=== PATIENT | male | born 1965 | race American Indian/Alaskan Native ===

== ENCOUNTER 2017-07-06 14:30 | Inpatient (IN) | payer MEDICARE ==
[2017-07-06 16:35] LABS: Basophils % (Auto) 0.5 % (0.0-1.8); Eosinophils % (Auto) 0.8 % (0.0-4.3); Hematocrit 33.5 % (35.5-45.6); Lymphocytes # (Auto) 0.6 K/mm3 (1.2-5.4); Lymphocytes % (Auto) 13.1 % (13.4-35.0); Mean Corpuscular HGB Conc 33 % (32-34); Mean Corpuscular Hemoglobin 31 pg (28-32); Mean Corpuscular Volume 93 fl (84-94); Monocytes # (Auto) 0.5 K/mm3 (0.0-0.8); Monocytes % (Auto) 10.7 % (0.0-7.3); Red Blood Count 3.59 M/mm3 (3.65-5.03); Red Cell Distribution Width 13.3 % (13.2-15.2)
[2017-07-06 16:41] LABS: Platelet Count 58 K/mm3 (140-440)
[2017-07-06] MEDS ORDERED: CATAPRES PO ONE (17:02)
--- NOTE | 2017-07-06 17:10 | Emergency Department Report ---
ED General Adult HPI - General Chief complaint: High BP Stated complaint: HYPERTENSION Time Seen by Provider: 07/06/17 16:24 Source: patient, EMS Mode of arrival: Stretcher Limitations: Physical Limitation - History of Present Illness Initial comments: End-stage renal dialysis patient sent from dialysis clinic, for uncontrolled hypertension with blood pressure noted at the clinic of 208/130, and dialysis was not performed. Patient was given 0.2 clonidine orally by clinic prior to transfer here, and blood pressure noted on arrival was 180/110. Patient's only complaint is a chronic neck ache over the past 1-2 weeks, which is atraumatic, constant and aching, not exacerbated by patient's blood pressure today. Patient is chronically disabled, lives in a ch[facility], and has dialysis 3 times weekly. He is a poor historian, but gives no history of repeated episodes of uncontrolled hypertension. He has no other symptoms, including no chest pain, no shortness of breath, no wheezing or other difficulties breathing. He has no pains elsewhere besides the neck. MD Complaint: high blood pressure -: This afternoon Location: neck (right posterior neck) Severity scale (0 -10): 4 Quality: aching Consistency: intermittent Improves with: none Worsens with: movement Associated Symptoms: denies other symptoms. denies: chest pain, diaphoresis, headaches, nausea/vomiting Treatments Prior to Arrival: other (clonidine) - Related Data Allergies Allergy/AdvReac Type Severity Reaction Status Date / Time No Known Allergies Allergy Unverified 07/06/17 16:11 ED Review of Systems ROS: Stated complaint: HYPERTENSION Other details as noted in HPI Comment: All other systems reviewed and negative Constitutional: denies: fever, malaise, weakness Respiratory: denies: cough, shortness of breath, wheezing Cardiovascular: denies: chest pain, palpitations Neurological: denies: headache, weakness, paresthesias ED Past Medical Hx - Past Medical History Hx Hypertension: Yes Hx Renal Disease: Yes (dialysis) - Social History Smoking Status: Never Smoker ED Physical Exam - General Limitations: Physical Limitation, Other (slowed speech, possible intellectual impairment) General appearance: alert - Head Head exam: Present: atraumatic - Eye Eye exam: Present: normal appearance, PERRL, EOMI - ENT ENT exam: Present: mucous membranes moist - Neck Neck exam: Present: tenderness (right lower paracervical margin extending towards levator scapula on the right) - Respiratory Respiratory exam: Present: normal lung sounds bilaterally, other (venous access port intact right upper anterior chest wall). Absent: respiratory distress, wheezes, rales, rhonchi - Cardiovascular Cardiovascular Exam: Present: regular rate, normal rhythm. Absent: systolic murmur, diastolic murmur, rubs, gallop - GI/Abdominal GI/Abdominal exam: Present: soft, normal bowel sounds - Back Exam Back exam: Present: other (primary levator scapula and mild trapezius muscle tenderness with mild spasm and base of neck and little bit laterally) ED Course Vital Signs 07/06/17 07/06/17 07/06/17 16:39 16:42 18:58 Temperature 99.4 F 98.7 F Pulse Rate 75 68 Respiratory 15 15 22 Rate Blood Pressure Blood Pressure 178/103 187/100 [Left] O2 Sat by Pulse 98 98 99 Oximetry 07/06/17 07/06/17 07/06/17 19:30 19:31 20:01 Temperature 98.7 F Pulse Rate 69 67 68 Respiratory 22 22 20 Rate Blood Pressure 187/100 187/100 Blood Pressure 187/100 [Left] O2 Sat by Pulse 99 99 99 Oximetry - Reevaluation(s) Reevaluation #1: 07/06/17 18:55 Repeat blood pressure 187/100, repeat temperature 98.7 Fahrenheit, patient is asymptomatic, resting comfortably, still unable to give any additional significant history, denies history of intellectual impairment, mental health issues, no history of bipolar disorder or schizophrenia, reports that he does not have a regular physician, gets most of his care at [facility] whenever he has any kind of a problem. Reports this is where they diagnosed his blood pressure problem. 07/06/17 18:58 - Consultations Consultation #1: 07/06/17 21:[address] Gatica, consulted, about patient's results and primary complaint, current stability, and although patient is currently stable, he believes that there would be significant delay in getting patient at her back into dialysis, and that patient needs admission for dialysis in the hospital before his next scheduled session. Consultation #2: 07/06/17 22:00 Dr. Larson, hospitalist occasional babysitter contacted at 2145 hrs., with request for admission for preparation for dialysis, and he will come to see patient for further care and admission. ED Medical Decision Making - Lab Data Result diagrams: 07/06/17 16:15 07/06/17 18:07 - EKG Data -: EKG Interpreted by Me (normal EKG with no ST elevation, no ectopy, normal QT interval) EKG shows normal: sinus rhythm Rate: normal - EKG Data When compared to previous EKG there are: previous EKG unavailable Interpretation: no acute changes, normal EKG - Medical Decision Making Patient is end-stage renal dialysis, with past history of hypertension, new finding of hyperglycemia, with uncontrolled hypertension, causing him to miss dialysis. Patient will be admission for emergency dialysis, as it is not able to make arrangements for interim dialysis prior to his next scheduled session. Patient has an elevated troponin level, but with a normal EKG, and this is likely a chronic finding, although there are no prior hospital visit for comparison of either troponin or EKG. - Differential Diagnosis fluid overload, hypertension, hyperkalemia, diabetes Critical care attestation.: If time is entered above; I have spent that time in minutes in the direct care of this critically ill patient, excluding procedure time. ED Disposition Disposition: [id number] OP ADMIT IP TO THIS HOSP Is pt being admited?: Yes Does the pt Need Aspirin: No Condition: Fair Referrals: PRIMARY CARE, [Primary Care Provider] - 3-5 Days
[2017-07-06 17:13] LABS: Calcium 8.6 mg/dL (8.4-10.2)
[2017-07-06] MEDS ORDERED: KIONEX PO ONE (17:37)
[2017-07-06 17:41] LABS: Chol/HDL Ratio 2.52 %
[2017-07-06] MEDS ORDERED: CALCIUM GLUCONATE 1,000 MG in NACL 0.9% 100 ML IV ONE (18:00)
--- NOTE | 2017-07-06 18:22 | XRay Report ---
FINAL REPORT EXAM: XR SPINE CERVICAL 2-3V HISTORY: atraumatic pain X 1 wk TECHNIQUE: 3 views of the cervical spine PRIORS: None. FINDINGS: Prevertebral soft tissues are without swelling. No evidence of cervical fracture or vertebral compression. Multilevel degenerative changes are present at the vertebral endplates, facet joints, and uncinate joints. Spondylolisthesis is not visualized. Multilevel disc narrowing from C3 through C6. IMPRESSION: No acute skeletal pathology Multilevel degenerative changes and disc narrowing
[2017-07-06 19:08] LABS: Albumin 3.1 g/dL (3.9-5); Calcium 8.6 mg/dL (8.4-10.2)
[2017-07-06] MEDS ORDERED: TYLENOL PO PRN (23:03)
[2017-07-06] MEDS ORDERED: ZOFRAN IV PRN (23:04)
[2017-07-06] MEDS ORDERED: D50W (25GM) Syringe IV PRN (23:08)
[2017-07-07 01:20] LABS: Creatine Kinase MB 2.3 ng/mL (0.0-4.0)
[2017-07-07] MEDS ORDERED: ULTRAM PO ONE (01:22)
[2017-07-07] MEDS: APRESOLINE IV PRN ×2 (01:32→12:29)
[2017-07-07] MEDS: HumuLIN R SUB-Q SCH ×5 (02:27→22:05)
--- NOTE | 2017-07-07 04:53 | History and Physical Report ---
CHIEF COMPLAINT: Elevated blood pressure. OTHER COMPLAINT: End-stage renal disease while on dialysis. HISTORY OF PRESENT ILLNESS: The patient is a 51-year-old male who has end-stage renal disease, on dialysis. He was sent from Dialysis Clinic because of uncontrolled blood pressure. Initially, the blood pressure was as high as 200/130. Because of that, he did not receive his dialysis, he was given 0.2 mg of clonidine by mouth by staff members at the Dialysis Clinic before being transferred to the emergency room, and on arrival at the Emergency Room, blood pressure has come down to 180/100. The patient was only complaining of chronic neck pain and the patient was also complaining of sore throat. There was no history of chest pain, no history of shortness of breath, fever, chills or cough. The patient was seen in the Emergency Room. PAST MEDICAL HISTORY: Pertinent for hypertension; end-stage renal disease, on dialysis. PAST SURGICAL HISTORY: Unremarkable. FAMILY HISTORY: Noncontributory. SOCIAL HISTORY: The patient does not smoke, does not drink alcohol. Does not use illicit drugs. MEDICATIONS: The patient's home medications are not known at this time. ALLERGIES: There are no known drug allergies. REVIEW OF SYSTEMS: CONSTITUTIONAL: There is no fever, no chills, or no diaphoresis. HEENT: There is no headache, but there is sore throat. CARDIOVASCULAR SYSTEM: There is no chest pain, orthopnea. RESPIRATORY SYSTEM: There is no shortness of breath or cough. GASTROINTESTINAL SYSTEM: There is no nausea, no vomiting, no abdominal pain, diarrhea, or constipation. NEUROLOGICAL SYSTEM: There is no numbness, no dizziness, no altered mental status. MUSCULOSKELETAL SYSTEM: There is complaint of neck pain with no joint swelling. DERMATOLOGICAL SYSTEM: There is no skin rash or itching. GENITOURINARY SYSTEM: There are no dysuria, hematuria or flank pain. Rest of system review is normal. PHYSICAL EXAMINATION: GENERAL: At the time of exam, the patient was found to be alert, oriented to person, place, and having some difficulty with communication and not in acute distress. VITAL SIGNS: Initially shows temperature of 99.4 degrees Fahrenheit, pulse of 75, respirations 15, blood pressure 178/103, O2 sat of 98% on room air. HEENT: Exam shows pupils to be equal, round, reactive to light and accommodation. Extraocular muscles are intact. NECK: Supple, with no JVD or carotid bruit. CARDIOVASCULAR SYSTEM: Showed normal first and second heart sounds with no gallops or murmurs. RESPIRATORY SYSTEM: Show good air entry on both sides of the lung with no abnormal breath sound. GASTROINTESTINAL SYSTEM: Show abdomen to be full, soft, nontender with no organomegaly or rigidity. NEUROLOGICAL: Exam shows the patient to be having some difficulty with speech, which is not defined as new or old, but there is no other focal or neurologic deficit. MUSCULOSKELETAL SYSTEM: Show no joint swelling or tenderness. DERMATOLOGICAL SYSTEM: Show no skin rash. GENITOURINARY SYSTEM: Showing no costovertebral angle tenderness. PERTINENT LABORATORY AND IMAGING STUDIES: The patient has cervical spine x-ray done that shows multilevel degenerative changes, no acute critical pathology. Lab results, the patient has CBC done with low hemoglobin of 11 and low hematocrit of 33.5, with normal MCV, and platelet count was low with a value of 58,000. CBC differential shows slightly elevated segmented neutrophil of 74.9, with no significant band. Patient's chemistry shows high BUN of 45 and high creatinine of 6.1 with low GFR of 12 consistent with end-stage renal disease, on dialysis. The patient's chemistry also shows high blood glucose of 214, and there is no report of patient having history of diabetes mellitus. Rest of chemistry was unremarkable. Cardiac enzymes show elevated CK percentage index of 9.2 with high troponin level of 0.367. History of patient's albumin level shows there is slight decrease in level of 3.1. DIAGNOSES: 1. End-stage renal disease, on dialysis. 2. Hypertensive crisis. 3. Elevated troponin level. 4. Thrombocytopenia. 5. Hyperglycemia. PLAN: The patient will be admitted to medical floor on telemetry and we will have cardiac enzymes checked q.6 hours x 2 more levels. The patient will have Nephrology consult with Dr. Mu Carrizales for management of end-stage renal disease. Diet will be consistent carbohydrate diet with low sodium of 2 g sodium. The patient will have a Rapid Streptococcus test done because of his sore throat, voice and speech difficulty. The patient will be on Accu-Chek before noon and at bedtime, followed by low-dose sliding scale using regular insulin dose coverage of blood sugar above 150 mg/dL. The patient will be on Tylenol 650 mg by mouth every 4 hours for fever, headache, and will be on intravenous hydralazine 10 mg every 4 hours as needed for systolic blood pressure above 150 mmHg. The patient will be on intravenous Zofran 4 mg every 8 hours as needed for nausea and vomiting and will be placed on his home medications when they are known and reconciled. JOB# [id number] OCN/NTS
[2017-07-07 09:08] LABS: Creatine Kinase MB 2.7 ng/mL (0.0-4.0)
[2017-07-07] MEDS: NORVASC PO SCH ×2 (09:35→09:41)
[2017-07-07] MEDS: APRESOLINE PO SCH ×3 (09:35→22:04)
[2017-07-07] MEDS: ASPIRIN PO SCH (09:35)
--- NOTE | 2017-07-07 11:40 | Consultation ---
History of Present Illness Consult date: 07/07/17 Consult reason: abnormal cardiac enzymes History of present illness: 51 year old -[place] male presenting today hospital with severely elevated systemic arterial pressures while on dialysis. Patient denied any cardiac problems serum troponin levels were obtained and where equivocally elevated hence cardiology consult. EKG shows sinus rhythm with nonspecific ST- T changes Past History Past Medical History: ESRD, hypertension Past Surgical History: Other (AV fistula) Social history: no significant social history Family history: no significant family history Medications and Allergies Allergies Allergy/AdvReac Type Severity Reaction Status Date / Time No Known Allergies Allergy Unverified 07/06/17 16:11 Active Meds: Active Medications Acetaminophen (Tylenol) 650 mg PO Q4H PRN PRN Reason: For Pain/Fever/Headache Acetaminophen/Hydrocodone Bitart ([place] 5/325) 1 each PO Q6H PRN PRN Reason: Pain, Moderate (4-6) Amlodipine Besylate (Norvasc) 5 mg PO QDAY [facility] Last Admin: 07/07/17 09:41 Dose: Not Given Aspirin (Aspirin) 325 mg PO QDAY [facility] Last Admin: 07/07/17 09:35 Dose: 325 mg Dextrose (D50w (25gm) Syringe) 50 ml IV PRN PRN PRN Reason: Hypoglycemia Hydralazine HCl (Apresoline) 10 mg IV Q4HR PRN PRN Reason: SBP > 150 Last Admin: 07/07/17 01:32 Dose: 10 mg Hydralazine HCl (Apresoline) 50 mg PO Q8HR [facility] Last Admin: 07/07/17 09:35 Dose: 50 mg Insulin Human Regular (Humulin R) 0 units SUB-Q [facility]; Protocol Last Admin: 07/07/17 07:30 Dose: Not Given Insulin Human Regular (Humulin R) 0 units SUB-Q QHS [facility]; Protocol Last Admin: 07/07/17 02:27 Dose: 2 units Ondansetron HCl (Zofran) 4 mg IV Q8H PRN PRN Reason: Nausea And Vomiting Review of Systems All systems: negative Physical Examination Vital Signs Temp Pulse Resp BP Pulse Ox 99.4 F 75 15 178/103 98 07/06/17 16:39 07/06/17 16:39 07/06/17 16:39 07/06/17 16:39 07/06/17 16:39 General appearance: no acute distress, well-nourished HEENT: Positive: PERRL, Mucus Membranes Moist Neck: Positive: neck supple, trachea midline. Negative: JVD/HJR Cardiac: Positive: Reg Rate and Rhythm, S1/S2, S4, PMI, Laterally Displaced Lungs: Positive: clear to auscultation, No Wheeze, Rales, Rhonchi Neuro: Positive: Grossly Intact Abdomen: Positive: Unremarkable Extremities: Absent: edema Results 07/06/17 16:15 07/06/17 18:07 Cardiac Enzymes 07/06/17 07/07/17 07/07/17 Range/Units 18:07 00:30 07:17 AST 9 (5-40) units/L CK-MB (CK-2) 2.3 2.7 (0.0-4.0) ng/mL Lipids 07/06/17 Range/Units 16:15 Triglycerides 78 (2-149) mg/dL Cholesterol 111 (50-199) mg/dL HDL Cholesterol 44 (40-59) mg/dL Cholesterol/HDL Ratio 2.52 % CBC 07/06/17 Range/Units 16:15 WBC 4.9 (4.5-11.0) K/mm3 RBC 3.59 L (3.65-5.03) M/mm3 Hgb 11.0 L (11.8-15.2) gm/dl Hct 33.5 L (35.5-45.6) % Plt Count 58 L (140-440) K/mm3 Lymph # 0.6 L (1.2-5.4) K/mm3 [place] # 0.5 (0.0-0.8) K/mm3 Eos # 0.0 (0.0-0.4) K/mm3 Baso # 0.0 (0.0-0.1) K/mm3 Comprehensive Metabolic Panel 07/06/17 07/06/17 Range/Units 16:15 18:07 Sodium 139 138 (137-145) mmol/L Potassium 4.3 4.3 (3.6-5.0) mmol/L Chloride 98.0 97.8 L (98-107) mmol/L Carbon Dioxide 22 23 (22-30) mmol/L BUN 44 H 45 H (9-20) mg/dL Creatinine 6.3 H 6.1 H (0.8-1.5) mg/dL Glucose 223 H 214 H (75-100) mg/dL Calcium 8.6 8.6 (8.4-10.2) mg/dL AST 9 (5-40) units/L ALT 6 L (7-56) units/L Alkaline Phosphatase 73 (35-129) units/L Total Protein 6.3 (6.3-8.2) g/dL Albumin 3.1 L (3.9-5) g/dL EKG interpretations - Telemetry EKG Rhythm: Sinus Rhythm Assessment and Plan 1. Abnormal cardiac enzymes elevation likely secondary to underlying end-stage renal disease 2. Essential hypertension 3. Type 2 diabetes mellitus 4. End-stage renal disease on hemodialysis Plan. Echocardiogram to assess global and regional LV systolic function Lexiscan MPI to rule out ischemic coronary artery disease
--- NOTE | 2017-07-07 11:51 | Progress Note ---
Assessment and Plan Assessment and plan: Hypertensive urgency. Patient sent in from dialysis for markedly elevated BP. Add Norvasc and Hydralazine. ESRD on hemodialysis. nephrology following. Elevated Troponin. cardiology consulted. For stress test tomorrow. chronic neck pain. [place] prn. DVT prophylaxis. SCDs only because thrombocytopenia. Thrombocytopenia. Follow as outpatient. Full code status History Interval history: Sent in from dialysis Unit forelevated blood pressure. Also complains of neck pain for weeks Hospitalist Physical - Physical exam Narrative exam: General:Not in acute distress, lying in bed HEENT:Normocephalic, atraumatic Neck:supple,no JVD Lungs: Cleasr to auscultation bilaterally, no wheeze Heart:S1 and S2 regular, no murmurs, rubs or gallop Abd: soft, non tender,non distended, normal bowel sounds Ext:no edema, no clubbing or cyanosis Neuro:Awake,alert,oriented x 3, moves all extremities, Psych:normal mood - Constitutional Vitals: Temp Pulse Resp BP Pulse Ox 98.6 F 75 18 174/91 97 07/07/17 08:51 07/07/17 10:00 07/07/17 10:00 07/07/17 09:35 07/07/17 05:28 General appearance: Present: no acute distress, well-nourished Results - Labs CBC & Chem 7: 07/06/17 16:15 07/06/17 18:07 Labs: Laboratory Last Values WBC 4.9 K/mm3 (4.5-11.0) 07/06/17 16:15 RBC 3.59 M/mm3 (3.65-5.03) L 07/06/17 16:15 Hgb 11.0 gm/dl (11.8-15.2) L 07/06/17 16:15 Hct 33.5 % (35.5-45.6) L 07/06/17 16:15 MCV 93 fl (84-94) 07/06/17 16:15 MCH 31 pg (28-32) 07/06/17 16:15 MCHC 33 % (32-34) 07/06/17 16:15 RDW 13.3 % (13.2-15.2) 07/06/17 16:15 Plt Count 58 K/mm3 (140-440) L 07/06/17 16:15 Lymph % (Auto) 13.1 % (13.4-35.0) L 07/06/17 16:15 [place] % (Auto) 10.7 % (0.0-7.3) H 07/06/17 16:15 Eos % (Auto) 0.8 % (0.0-4.3) 07/06/17 16:15 Baso % (Auto) 0.5 % (0.0-1.8) 07/06/17 16:15 Lymph # 0.6 K/mm3 (1.2-5.4) L 07/06/17 16:15 [place] # 0.5 K/mm3 (0.0-0.8) 07/06/17 16:15 Eos # 0.0 K/mm3 (0.0-0.4) 07/06/17 16:15 Baso # 0.0 K/mm3 (0.0-0.1) 07/06/17 16:15 Seg Neutrophils % 74.9 % (40.0-70.0) H 07/06/17 16:15 Seg Neutrophils # 3.7 K/mm3 (1.8-7.7) 07/06/17 16:15 Sodium 138 mmol/L (137-145) 07/06/17 18:07 Potassium 4.3 mmol/L (3.6-5.0) 07/06/17 18:07 Chloride 97.8 mmol/L (98-107) L 07/06/17 18:07 Carbon Dioxide 23 mmol/L (22-30) 07/06/17 18:07 Anion Gap 22 mmol/L 07/06/17 18:07 BUN 45 mg/dL (9-20) H 07/06/17 18:07 Creatinine 6.1 mg/dL (0.8-1.5) H 07/06/17 18:07 Estimated GFR 12 ml/min 07/06/17 18:07 BUN/Creatinine Ratio 7 % 07/06/17 18:07 Glucose 214 mg/dL (75-100) H 07/06/17 18:07 POC Glucose 149 (70-105) H 07/07/17 07:00 Calcium 8.6 mg/dL (8.4-10.2) 07/06/17 18:07 Total Bilirubin 0.30 mg/dL (0.1-1.2) 07/06/17 18:07 AST 9 units/L (5-40) 07/06/17 18:07 ALT 6 units/L (7-56) L 07/06/17 18:07 Alkaline Phosphatase 73 units/L (35-129) 07/06/17 18:07 Total Creatine Kinase 28 units/L (55-170) L 07/07/17 07:17 CK-MB (CK-2) 2.7 ng/mL (0.0-4.0) 07/07/17 07:17 CK-MB (CK-2) Rel Index 9.6 (0-4) H 07/07/17 07:17 Troponin T 0.485 ng/mL (0.00-0.029) H* D 07/07/17 07:17 Total Protein 6.3 g/dL (6.3-8.2) 07/06/17 18:07 Albumin 3.1 g/dL (3.9-5) L 07/06/17 18:07 Albumin/Globulin Ratio 1.0 % 07/06/17 18:07 Triglycerides 78 mg/dL (2-149) 07/06/17 16:15 Cholesterol 111 mg/dL (50-199) 07/06/17 16:15 LDL Cholesterol Direct 54 mg/dL (50-130) 07/06/17 16:15 HDL Cholesterol 44 mg/dL (40-59) 07/06/17 16:15 Cholesterol/HDL Ratio 2.52 % 07/06/17 16:15
[2017-07-07] MEDS: NORCO 5/325 PO PRN (12:11)
--- NOTE | 2017-07-07 12:35 | Consultation ---
History of Present Illness - Reason for Consult Consult date: 07/07/17 end stage renal disease - History of Present Illness 51yr M sent from outpt HD center with uncontrolled HTN. Pt does not know his Dialysis Center, location, Purchasing Supervisor or what days he goes for Dialysis, how long he's been on HD Past History Past Medical History: ESRD, hypertension Past Surgical History: Other (AV fistula) Social history: no significant social history Family history: no significant family history Medications and Allergies Allergies Allergy/AdvReac Type Severity Reaction Status Date / Time No Known Allergies Allergy Unverified 07/06/17 16:11 Active Meds: Active Medications Acetaminophen (Tylenol) 650 mg PO Q4H PRN PRN Reason: For Pain/Fever/Headache Acetaminophen/Hydrocodone Bitart ([place] 5/325) 1 each PO Q6H PRN PRN Reason: Pain, Moderate (4-6) Last Admin: 07/07/17 12:11 Dose: 1 each Amlodipine Besylate (Norvasc) 5 mg PO QDAY [facility] Last Admin: 07/07/17 09:41 Dose: Not Given Aspirin (Aspirin) 325 mg PO QDAY [facility] Last Admin: 07/07/17 09:35 Dose: 325 mg Dextrose (D50w (25gm) Syringe) 50 ml IV PRN PRN PRN Reason: Hypoglycemia Hydralazine HCl (Apresoline) 10 mg IV Q4HR PRN PRN Reason: SBP > 150 Last Admin: 07/07/17 12:29 Dose: 10 mg Hydralazine HCl (Apresoline) 50 mg PO Q8HR [facility] Last Admin: 07/07/17 09:35 Dose: 50 mg Insulin Human Regular (Humulin R) 0 units SUB-Q [facility]; Protocol Last Admin: 07/07/17 12:13 Dose: Not Given Insulin Human Regular (Humulin R) 0 units SUB-Q QHS [facility]; Protocol Last Admin: 07/07/17 02:27 Dose: 2 units Ondansetron HCl (Zofran) 4 mg IV Q8H PRN PRN Reason: Nausea And Vomiting Review of Systems ROS unobtainable: due to mental status Exam - Vital Signs Vital signs: Vital Signs Temp Pulse Resp BP Pulse Ox 99.4 F 75 15 178/103 98 07/06/17 16:39 07/06/17 16:39 07/06/17 16:39 07/06/17 16:39 07/06/17 16:39 - General Appearance General appearance: other (Awake & responsive but very poor memory) EENT: PERRL Neck: Present: neck supple. Absent: JVD/HJR Respiratory: Other (Good air entry) Heart: regular, S1S2 Gastrointestinal: Present: other (Soft) Neurologic: other (Very poor memory) Additional exam: HD Access - RIJ Permcath Results - Lab Results 07/06/17 16:15 07/06/17 18:07 Most recent lab results Calcium 8.6 mg/dL (8.4-10.2) 07/06/17 18:07 Assessment and Plan Uncontrollled HTN - Adjust meds for better control ESRD - HD in am & thru adm Dementia - F/u Mx F/u labs Thanks very much, will f/u with you
[2017-07-07] MEDS ORDERED: HEPARIN 10,000 UNITS/10 ML IV PRN (12:42)
[2017-07-07] MEDS ORDERED: PROCRIT IV PRN (12:42)
[2017-07-07] MEDS ORDERED: NACL 0.9% 100 ML IV PRN (12:42)
[2017-07-07] MEDS ORDERED: HEPARIN IV PRN (12:42)
[2017-07-07] MEDS: COREG PO SCH (22:04)
[2017-07-08 06:27] LABS: Hematocrit 30.4 % (35.5-45.6); Hemoglobin 10.1 gm/dl (11.8-15.2); Mean Corpuscular HGB Conc 33 % (32-34); Mean Corpuscular Hemoglobin 31 pg (28-32); Mean Corpuscular Volume 92 fl (84-94); Red Blood Count 3.31 M/mm3 (3.65-5.03); Red Cell Distribution Width 13.6 % (13.2-15.2)
[2017-07-08 06:28] LABS: Platelet Count 67 K/mm3 (140-440)
[2017-07-08] MEDS: APRESOLINE PO SCH ×3 (06:37→21:01)
[2017-07-08 06:54] LABS: Hepatitis A Antibody IgM Non-Reactive (NonReactive); Hepatitis B Core IgM Non-Reactive (NonReactive); Hepatitis B Surface Antigen Non-Reactive (Negative); Hepatitis C Virus Antibody Non-Reactive (NonReactive)
[2017-07-08] MEDS: NORCO 5/325 PO PRN ×2 (07:03→18:49)
[2017-07-08] MEDS: HumuLIN R SUB-Q SCH ×4 (08:19→21:14)
--- NOTE | 2017-07-08 09:24 | Progress Note ---
Assessment and Plan Uncontrollled HTN - Still adjust meds for better control ESRD - HD today F/u am labs still pending Subjective Date of service: 07/08/17 Interval history: C/o back pain, relief by pain meds Objective - Vital Signs Vital signs: Vital Signs - 12hr 07/07/17 07/07/17 07/07/17 22:04 22:35 23:58 Temperature 98.9 F Pulse Rate 76 76 Pulse Rate [ 76 Apical] Pulse Rate [ 76 From Monitor] Respiratory 18 20 Rate Blood Pressure 129/79 134/84 Blood Pressure [Left] O2 Sat by Pulse 97 96 Oximetry 07/08/17 07/08/17 07/08/17 04:27 07:03 08:00 Temperature 99.1 F 98.2 F Pulse Rate 84 84 Pulse Rate [ Apical] Pulse Rate [ From Monitor] Respiratory 20 20 18 Rate Blood Pressure 135/72 Blood Pressure 169/102 [Left] O2 Sat by Pulse 97 97 Oximetry 07/08/17 08:54 Temperature Pulse Rate 84 Pulse Rate [ Apical] Pulse Rate [ 84 From Monitor] Respiratory 18 Rate Blood Pressure Blood Pressure [Left] O2 Sat by Pulse 98 Oximetry - General Appearance General appearance: other (Awake & alert) EENT: PERRL Neck: no JVD Respiratory: Present: Other (Good air entry) Cardiology: regular, S1S2 Gastrointestinal: other (Soft) - Lab 07/08/17 05:48 07/06/17 18:07 Most recent lab results Calcium 8.6 mg/dL (8.4-10.2) 07/06/17 18:07
[2017-07-08] MEDS ORDERED: PNEUMOVAX 23 IM ONE (12:00)
[2017-07-08] MEDS ORDERED: LEXISCAN IV ONE ×2 (12:38→12:41)
[2017-07-08] MEDS ORDERED: NACL 0.9 (PRIMING MACHINE ONLY DIALYSIS) MC ONE (14:58)
--- NOTE | 2017-07-08 14:59 | Discharge Summary ---
Providers - Providers Date of Admission: 07/06/17 22:53 Date of discharge: 07/08/17 Attending physician: CHIARA HORN 07/07/17 06:19 Consult to Physician [CONS] Routine Comment: Consulting Provider: URVASHI MICHEL Physician Instructions: Reason For Exam: ELEVATED TROPONIN 07/07/17 06:58 Consult to Physician [CONS] Routine Comment: Consulting Provider: SUDARSHAN HUSSEIN Physician Instructions: Reason For Exam: ESRD ON DIALYSIS Primary care physician: STRUCTURAL MANAGER Hospitalization Condition: Fair Disposition: DC/[place]-03 SNF W [facility] CERT Core Measure Documentation - Palliative Care Palliative Care/ Comfort Measures: Not Applicable - Core Measures Any of the following diagnoses?: none Exam - Constitutional Vitals: Temp Pulse Resp BP Pulse Ox 98.2 F 84 18 157/88 98 07/08/17 14:00 07/08/17 14:00 07/08/17 14:00 07/08/17 14:00 07/08/17 08:54 Plan Activity: advance as tolerated Diet: low fat, low cholesterol, low salt, renal Additional Instructions: 1.Follow up with Physician at SNF in 2-3 days. 2.Continue routine hemodialysis as scheduled. 3.Follow up with Dr. Brothers, hematology in 1 week for thrombocytopenia. Follow up with: PRIMARY CARE, [Primary Care Provider] - 3-5 Days Prescriptions: NIFEdipine XL [Procardia Xl] 60 mg PO Q12H #60 tablet traMADol [Ultram 50 MG tab] 50 mg PO Q6HR PRN #10 tablet PRN Reason: Pain
[2017-07-08] MEDS: ASPIRIN PO SCH (17:26)
[2017-07-08] MEDS: COREG PO SCH ×2 (17:26→21:01)
[2017-07-08] MEDS: PROCARDIA XL PO SCH ×2 (17:27→21:00)
--- NOTE | 2017-07-08 19:40 | Progress Note ---
Assessment and Plan - Patient Problems (1) Uncontrolled hypertension Current Visit: Yes Status: Acute Plan to address problem: The patient was referred to the hospital from the dialysis unit due to uncontrolled hypertension at the time of dialysis. On presentation, he denies any cardiac symptoms. There is no chest pain, no shortness of breath, no palpitations and no edema. For unclear reasons, on presentation to the emergency room cardiac isoenzymes were drawn and measured. Due to the isolated mild elevation of the troponin, Persantine thallium stress test was ordered today. The patient underwent a Lexiscan myocardial perfusion test, that revealed a small mostly fixed basal inferolateral defect. He has minimal reversibility and the rest study. In the absence of symptoms, there is no indication for further cardiac ischemic testing at this time. Recommend conservative medical management and risk factor modification. We will make recommendations for optimal blood pressure control and recommend outpatient cardiac follow-up. Subjective Date of service: 07/08/17 Interval history: The patient underwent a Lexiscan myocardial perfusion test, that revealed a small mostly fixed basal inferolateral defect. He has minimal reversibility and the rest study. Objective Vital Signs Temp Pulse Pulse Pulse Resp BP BP 07/08/17 17:35 98.0 F 84 18 135/73 07/08/17 17:30 80 124/66 07/08/17 17:15 82 120/68 07/08/17 17:00 84 112/68 07/08/17 16:45 80 113/67 07/08/17 16:30 79 116/68 07/08/17 16:15 79 124/70 07/08/17 16:00 79 121/71 07/08/17 15:45 78 122/71 07/08/17 15:30 78 122/72 07/08/17 15:15 78 124/72 07/08/17 15:00 80 120/72 07/08/17 14:45 81 122/73 07/08/17 14:30 80 129/75 07/08/17 14:15 79 130/79 07/08/17 14:00 98.2 F 83 18 140/80 07/08/17 13:26 89 116/71 07/08/17 13:25 90 114/70 07/08/17 13:24 90 111/69 07/08/17 13:23 89 112/67 07/08/17 13:22 85 109/67 07/08/17 12:35 78 183/99 07/08/17 08:54 84 84 18 07/08/17 08:00 98.2 F 84 18 169/102 07/08/17 07:03 20 07/08/17 04:27 99.1 F 84 20 135/72 07/07/17 23:58 98.9 F 76 20 134/84 07/07/17 22:35 76 76 18 07/07/17 22:04 76 129/79 07/07/17 20:40 73 07/07/17 19:43 98.5 F 76 18 129/79 Pulse Ox 07/08/17 17:35 07/08/17 17:30 07/08/17 17:15 07/08/17 17:00 07/08/17 16:45 07/08/17 16:30 07/08/17 16:15 07/08/17 16:00 07/08/17 15:45 07/08/17 15:30 07/08/17 15:15 07/08/17 15:00 07/08/17 14:45 07/08/17 14:30 07/08/17 14:15 07/08/17 14:00 07/08/17 13:26 07/08/17 13:25 07/08/17 13:24 07/08/17 13:23 07/08/17 13:22 07/08/17 12:35 07/08/17 08:54 98 07/08/17 08:00 97 07/08/17 07:03 07/08/17 04:27 97 07/07/17 23:58 96 07/07/17 22:35 97 07/07/17 22:04 07/07/17 20:40 07/07/17 19:43 97 - Physical Examination General: No Apparent Distress, Cachectic HEENT: Positive: PERRL, Mucus Membranes Moist Neck: Positive: neck supple. Negative: JVD/HJR Cardiac: Positive: Reg Rate and Rhythm Lungs: Positive: Decreased Breath Sounds Neuro: Positive: Grossly Intact Abdomen: Positive: Unremarkable Skin: Positive: Clear Extremities: Absent: edema - Labs and Meds CBC 07/08/17 Range/Units 05:48 WBC 4.8 (4.5-11.0) K/mm3 RBC 3.31 L (3.65-5.03) M/mm3 Hgb 10.1 L (11.8-15.2) gm/dl Hct 30.4 L (35.5-45.6) % Plt Count 67 L (140-440) K/mm3
[2017-07-08 20:05] VITALS: BP 169/92
--- NOTE | 2017-07-09 23:00 | Treadmill Report ---
LEFT VENTRICLE: Left ventricular chamber size is within normal spirit. Perfusion study demonstrates a small fixed basal inferolateral defect, with minimal reversibility in the resting study. Gated analysis demonstrates well preserved left ventricular systolic function, ejection fraction greater than 70%. CONCLUSION: Small fixed basal inferolateral defect may represent diaphragmatic attenuation artifact. Cannot exclude a minimal degree of reversible ischemia on this study. Clinical correlation is recommended. [facility]# [id number] [place]/NTS
== END 2017-07-08 21:55 | DRG 304 ==
LOC: ED 14:30 → 4A 22:53
PROVIDERS: ADMIT Internal Medicine; ATTEND Internal Medicine
PROC: 3E0234Z Introduction of Serum, Toxoid and Vaccine into Muscle, Percutaneous Approach (ICD-10-PCS; principal; 2017-07-08)
PROC: 5A1D70Z Performance of Urinary Filtration, Intermittent, Less than 6 Hours Per Day (ICD-10-PCS; 2017-07-08)
DX: I16.0 Hypertensive urgency (principal); N18.6 End stage renal disease; I12.0 Hypertensive chronic kidney disease with stage 5 chronic kidney disease or end stage renal disease; D69.6 Thrombocytopenia, unspecified; E11.22 Type 2 diabetes mellitus with diabetic chronic kidney disease; F03.90 Unspecified dementia, unspecified severity, without behavioral disturbance, psychotic disturbance, mood disturbance, and anxiety; G89.29 Other chronic pain; M54.2 Cervicalgia; Z23 Encounter for immunization
CPT/HCPCS: 36415; 72040; 78452; 80048; 80053; 80061; 80074; 82550; 82553; 82962; 84484; 85025; 85027; 90732; 93005; 93010; 93017; 93306; A9502; J0360; J0610; J0885; J1644; J1815; J2785; J7030

== ENCOUNTER 2017-09-28 11:05 | Emergency (ER) | payer MEDICARE ==
[2017-09-28] MEDS ORDERED: D50W (25GM) Syringe IV ONE ×2 (11:07→12:00)
--- NOTE | 2017-09-28 11:44 | XRay Report ---
FINAL REPORT EXAM: XR CHEST 1V AP HISTORY: dyspnea TECHNIQUE: Chest, AP PRIORS: None. FINDINGS: There is a right central venous catheter with tip in right atrium. The heart size is normal. Pulmonary vasculature is not congested. The lungs are clear. There are no pleural effusion seen. There is no evidence of pneumothorax. IMPRESSION: There is no acute abnormality identified.
[2017-09-28 11:52] LABS: Eosinophils # (Auto) 0.2 K/mm3 (0.0-0.4); Eosinophils % (Auto) 4.3 % (0.0-4.3); Hematocrit 38.1 % (35.5-45.6); Hemoglobin 12.8 gm/dl (11.8-15.2); Lymphocytes # (Auto) 0.5 K/mm3 (1.2-5.4); Lymphocytes % (Auto) 13.3 % (13.4-35.0); Mean Corpuscular HGB Conc 34 % (32-34); Mean Corpuscular Hemoglobin 32 pg (28-32); Mean Corpuscular Volume 94 fl (84-94); Monocytes # (Auto) 0.3 K/mm3 (0.0-0.8); Monocytes % (Auto) 7.1 % (0.0-7.3); Red Blood Count 4.05 M/mm3 (3.65-5.03); Red Cell Distribution Width 16.6 % (13.2-15.2)
[2017-09-28 11:55] LABS: Platelet Count 46 K/mm3 (140-440)
--- NOTE | 2017-09-28 12:49 | Emergency Department Report ---
HPI - General Chief Complaint: Hypoglycemia Time Seen by Provider: 09/28/17 11:15 - HPI HPI: The patient is a 52-year-old male with a history of end-stage renal disease, who presents for evaluation of altered mental status. The patient arrives via EMS, who reports that the patient was found with altered mental status and decreased alertness on presentation to his dialysis center. The patient denies fever, head injury, headache, neck pain, neck stiffness, vision or hearing changes, smell or taste changes, paresthesias, facial drooping, slurred speech, seizure-like activity, urine or bowel incontinence or retention, or other focal neurological deficit. ED Past Medical Hx - Past Medical History Hx Hypertension: Yes Hx Heart Attack/AMI: No Hx Congestive Heart Failure: No Hx Diabetes: Yes Hx Deep Vein Thrombosis: No Hx Pulmonary Embolism: No Hx Liver Disease: No Hx Renal Disease: Yes (dialysis) Hx Kidney Stones: No Hx Asthma: No Hx COPD: No Hx Tuberculosis: No - Surgical History Hx Coronary Stent: No Hx Pacemaker: No Hx Internal Defibrillator: No - Social History Smoking Status: Unknown if ever smoked Substance Use Type: None - Medications Home Medications: Home Medications Medication Instructions Recorded Confirmed Last Taken Type Acidophilus 175 mg Capsule 100 mg PO BID 07/08/17 07/08/17 Unknown History Benadryl CAP 25 mg PO Q12H PRN 07/08/17 07/08/17 Unknown History Folic Acid 1 mg PO DAILY 07/08/17 07/08/17 Unknown History Lantus VIAL 10 units SQ QHS 07/08/17 07/08/17 Unknown History Lomotil 2.5-0.025 mg Tablet 2.5 mg PO Q6H PRN 07/08/17 07/08/17 Unknown History Metoprolol Tartrate 25 mg PO Q12H 07/08/17 07/08/17 Unknown History NIFEdipine XL [Procardia Xl] 60 mg PO Q12H #60 tablet 07/08/17 Unknown Rx NovoLOG Flexpen 100 units SQ 07/08/17 Unknown History Phoslo 967 mg PO TID 07/08/17 07/08/17 Unknown History Remeron 15 mg PO QHS 07/08/17 07/08/17 Unknown History Synthroid 25 mcg PO QAM 07/08/17 07/08/17 Unknown History Thiamine HCl 100 mg PO DAILY 07/08/17 07/08/17 Unknown History traMADol [Ultram 50 MG tab] 50 mg PO Q6HR PRN #10 tablet 07/08/17 Unknown Rx ED Review of Systems ROS: Stated complaint: ALTERED MENTAL STATUS Other details as noted in HPI Constitutional: denies: fever ENT: denies: throat or neck pain Respiratory: denies: cough, shortness of breath Cardiovascular: denies: chest pain Endocrine: denies unexplained weight loss or gain Gastrointestinal: denies: abdominal pain, nausea Genitourinary: denies: dysuria Musculoskeletal: denies: leg swelling Skin: denies: rash Neurological: confusion reported (per dialysis staff) denies: headache Hematological/Lymphatic: denies: easy bleeding or easy bruising Psych: denies sadness or hopelessness Physical Exam - Physical Exam Vital Signs: Vital Signs 09/28/17 09/28/17 11:24 11:32 Temperature 97 F L Pulse Rate 62 Respiratory 18 Rate Blood Pressure 109/66 O2 Sat by Pulse 100 100 Oximetry Physical Exam: General: well-nourished, well-developed, no acute distress Head: Normocephalic, atraumatic Eyes: normal sclera ENT: Mucous membranes are pale and dry Neck: No neck stiffness, no cervical adenopathy Respiratory: Breath sounds equal bilaterally, no wheezing, rales, or rhonchi Cardio: S1 and S2 present, no murmurs, rubs, gallops, capillary refill is delayed Abdomen: Normoactive bowel sounds, soft abdomen, no tenderness Chest WALL/Back: No tenderness to palpation of the chest wall, no CVA tenderness with percussion Musc: No pitting edema Skin: No rash Neuro: Alert, drowsy, arousable to verbal stimuli, disoriented, gag reflex intact, protecting airway, no facial drooping, normal speech Psych: Normal affect ED Course Vital Signs 09/28/17 09/28/17 11:24 11:32 Temperature 97 F L Pulse Rate 62 Respiratory 18 Rate Blood Pressure 109/66 O2 Sat by Pulse 100 100 Oximetry ED Medical Decision Making - Lab Data Result diagrams: 09/28/17 11:30 09/28/17 13:41 - Medical Decision Making The patient was seen and examined by myself. The patient is placed on a phototypesetting equipment monitor and continuous pulse ox. On initial evaluation, the patient was found to be in no distress, although with altered mental status and low blood sugar of 21. The patient is given an amp of dextrose and his drowsiness resolved promptly. Evaluation orders were placed. X-ray of the chest is negative for pulmonary vessel congestion. EKG exhibits normal sinus rhythm and rate with normal axis, no arrhythmias, and no T-wave or ST segment changes concerning for acute cardiac disease process. Lab results reveal normal potassium level and normalization of blood sugar. The patient was reevaluated and reported that their symptoms were markedly improved. The patient is stable for discharge with outpatient follow-up. The patient is given follow-up and return instructions. The patient expressed understanding and agreed with the plan. The patient is discharged in stable condition. Critical care attestation.: If time is entered above; I have spent that time in minutes in the direct care of this critically ill patient, excluding procedure time. ED Disposition Clinical Impression: ESRD on hemodialysis, Hypoglycemia Altered mental status, unspecified Qualifiers: Altered mental status type: transient alteration of awareness Qualified Code(s) : R40.4 - Transient alteration of awareness Disposition: DC-01 TO HOME OR SELFCARE Is pt being admited?: No Does the pt Need Aspirin: No Condition: Stable Instructions: Chronic Kidney Disease (ED), Diabetic Hypoglycemia (ED) Referrals: PRIMARY CARE, [Primary Care Provider] - 3-5 Days Time of Disposition: 14:22
[2017-09-28 14:15] LABS: Albumin 3.6 g/dL (3.9-5); Calcium 8.4 mg/dL (8.4-10.2)
[2017-09-28 17:46] VITALS: BP 153/87
== END 2017-09-28 18:09 | disposition home or self-care (01) ==
LOC: ED 11:05
DX: E11.22 Type 2 diabetes mellitus with diabetic chronic kidney disease (principal); E11.649 Type 2 diabetes mellitus with hypoglycemia without coma; I12.0 Hypertensive chronic kidney disease with stage 5 chronic kidney disease or end stage renal disease; N18.6 End stage renal disease; Z99.2 Dependence on renal dialysis; R40.4 Transient alteration of awareness
CPT/HCPCS: 36415; 71045; 80053; 82962; 83880; 85025; 93005; 93010; 96374

== ENCOUNTER 2017-10-17 16:00 | Inpatient (IN) | payer MEDICARE ==
[2017-10-17 17:00] LABS: Hematocrit 35.3 % (35.5-45.6); Hemoglobin 11.7 gm/dl (11.8-15.2); Mean Corpuscular HGB Conc 33 % (32-34); Mean Corpuscular Hemoglobin 31 pg (28-32); Mean Corpuscular Volume 94 fl (84-94); Red Blood Count 3.76 M/mm3 (3.65-5.03); Red Cell Distribution Width 14.9 % (13.2-15.2)
[2017-10-17] MEDS ORDERED: CATAPRES PO ONE (17:13)
[2017-10-17 17:14] LABS: Albumin 3.6 g/dL (3.9-5); Calcium 8.3 mg/dL (8.4-10.2)
[2017-10-17 18:43] LABS: Platelet Count 39 K/mm3 (140-440)
--- NOTE | 2017-10-17 18:58 | Emergency Department Report ---
ED General Adult HPI - General Chief complaint: High BP Stated complaint: EVAL BP AFTER DIALYSIS Time Seen by Provider: 10/17/17 16:55 Source: patient, EMS, old records reviewed Mode of arrival: Wheelchair Limitations: No Limitations - History of Present Illness Initial comments: 52-year-old male with a past medical history of end-stage disease on dialysis, diabetes, and hypertension presents to the hospital with elevated blood pressure. Patient did complete his dialysis prior to transport. He is asymptomatic. He received a unknown dose of clonidine prior to arrival. According to MAR patient has Clonidine 0.1 mg ordered for systolic blood pressure greater than 160 hour into treatment with repeat 1 dose prn.. However , there is no mention of what patient actually received prior to transport and pt does not know the dose he was given. Patient denies headache, chest pain, shortness of breath, blurry vision, nausea, vomiting, focal weakness or numbness. As per medical record review patient was admitted here in June for uncontrolled hypertension and had a negative stress test and had his medications adjusted for better blood pressure control and Procardia 60 mg xl bid was added. The patient lives in a senior living and states that they have been giving him his medication. as per cardiolgist Dr Rousseau note from June admission: The patient underwent a Lexiscan myocardial perfusion test, that revealed a small mostly fixed basal inferolateral defect. He has minimal reversibility and the rest study. In the absence of symptoms, there is no indication for further cardiac ischemic testing at this time. Recommend conservative medical management and risk factor modification. We will make recommendations for optimal blood pressure control and recommend outpatient cardiac follow-up. - Related Data Home Medications Medication Instructions Recorded Confirmed Last Taken Acidophilus 175 mg Capsule 100 mg PO BID 07/08/17 07/08/17 Unknown Benadryl CAP 25 mg PO Q12H PRN 07/08/17 07/08/17 Unknown Folic Acid 1 mg PO DAILY 07/08/17 07/08/17 Unknown Lantus VIAL 10 units SQ QHS 07/08/17 07/08/17 Unknown Lomotil 2.5-0.025 mg Tablet 2.5 mg PO Q6H PRN 07/08/17 07/08/17 Unknown Metoprolol Tartrate 25 mg PO Q12H 07/08/17 07/08/17 Unknown NovoLOG Flexpen 100 units SQ 07/08/17 Unknown Phoslo 967 mg PO TID 07/08/17 07/08/17 Unknown Remeron 15 mg PO QHS 07/08/17 07/08/17 Unknown Synthroid 25 mcg PO QAM 07/08/17 07/08/17 Unknown Thiamine HCl 100 mg PO DAILY 07/08/17 07/08/17 Unknown Previous Rx's Medication Instructions Recorded Last Taken Type NIFEdipine XL [Procardia Xl] 60 mg PO Q12H #60 tablet 07/08/17 Unknown Rx traMADol [Ultram 50 MG tab] 50 mg PO Q6HR PRN #10 tablet 07/08/17 Unknown Rx Allergies Allergy/AdvReac Type Severity Reaction Status Date / Time No Known Allergies Allergy Unverified 07/06/17 16:11 ED Review of Systems ROS: Stated complaint: EVAL BP AFTER DIALYSIS Other details as noted in HPI Comment: All other systems reviewed and negative ED Past Medical Hx - Past Medical History Previous Medical History?: Yes Hx Hypertension: Yes Hx Heart Attack/AMI: No Hx Congestive Heart Failure: No Hx Diabetes: Yes Hx Deep Vein Thrombosis: No Hx Pulmonary Embolism: No Hx Liver Disease: No Hx Renal Disease: Yes (dialysis-) Hx Kidney Stones: No Hx Asthma: No Hx COPD: No Hx Tuberculosis: No Additional medical history: unable to walk due to weak leg muscles - Surgical History Past Surgical History?: Yes Hx Coronary Stent: No Hx Pacemaker: No Hx Internal Defibrillator: No Additional Surgical History: vas cath to right chest wall - Social History Smoking Status: Current Some Day Smoker Substance Use Type: None - Medications Home Medications: Home Medications Medication Instructions Recorded Confirmed Last Taken Type Acidophilus 175 mg Capsule 100 mg PO BID 07/08/17 07/08/17 Unknown History Benadryl CAP 25 mg PO Q12H PRN 07/08/17 07/08/17 Unknown History Folic Acid 1 mg PO DAILY 07/08/17 07/08/17 Unknown History Lantus VIAL 10 units SQ QHS 07/08/17 07/08/17 Unknown History Lomotil 2.5-0.025 mg Tablet 2.5 mg PO Q6H PRN 07/08/17 07/08/17 Unknown History Metoprolol Tartrate 25 mg PO Q12H 07/08/17 07/08/17 Unknown History NIFEdipine XL [Procardia Xl] 60 mg PO Q12H #60 tablet 07/08/17 Unknown Rx NovoLOG Flexpen 100 units SQ 07/08/17 Unknown History Phoslo 967 mg PO TID 07/08/17 07/08/17 Unknown History Remeron 15 mg PO QHS 07/08/17 07/08/17 Unknown History Synthroid 25 mcg PO QAM 07/08/17 07/08/17 Unknown History Thiamine HCl 100 mg PO DAILY 07/08/17 07/08/17 Unknown History traMADol [Ultram 50 MG tab] 50 mg PO Q6HR PRN #10 tablet 07/08/17 Unknown Rx ED Physical Exam - General Limitations: No Limitations - Other Other exam information: General: No limitations, patient is alert in no acute distress Head exam: Atraumatic, normocephalic Eyes exam: Normal appearance, pupils equal reactive to light, extraocular movements intact ENT: Moist mucous membrane, normal oropharynx Neck exam: Normal inspection, full range of motion, no meningismus nontender Respiratory exam: Clear to auscultation bilateral, no wheezes, rales, crackles Cardiovascular: Normal rate and rhythm, normal heart sounds right chest wall Vas -Cath Abdomen: Soft, nondistended, and nontender, with normal bowel sounds, no rebound, or guarding Extremity: Full range of motion normal inspection no deformity Back: Normal Inspection, full range of motion, no tenderness Neurologic: Alert, oriented x3, cranial nerves intact, no motor or sensory deficit. Slurred speech which is chronic as per patient denies CVA Psychiatric: normal affect, normal mood Skin: Warm, dry, intact ED Course Vital Signs 10/17/17 10/17/17 10/17/17 16:06 17:03 17:27 Temperature 98.0 F Pulse Rate 78 75 74 Respiratory 18 16 Rate Blood Pressure 195/107 196/105 Blood Pressure 196/105 [Left] O2 Sat by Pulse 99 100 Oximetry 10/17/17 18:26 Temperature Pulse Rate 68 Respiratory Rate Blood Pressure Blood Pressure 208/111 [Left] O2 Sat by Pulse Oximetry - Reevaluation(s) Reevaluation #1: 10/17/17 19:00 BP 186/107 after Clonidine 0.2 mg dose Reevaluation #2: 10/17/17 19:29 BP is actually more elevated now despite clonidine 0.2 mg. Procardia 60 mg XL ordered. If the BP not improved further inpatient may require IV meds for blood pressure control. - Consultations Consultation #1: 10/17/17 19:29 case d/w Dr Azevedo nephrology. Apparently patient's Procardia was discontinued in August because systolic pressure was dropping into the 90s. Now patient's blood pressure after dialysis has been persistently elevated to 180s to 190s. Patient blood pressure any ED is now over 200 systolic. ED Medical Decision Making - Lab Data Result diagrams: 10/17/17 16:47 10/17/17 16:47 Lab Results 10/17/17 10/17/17 10/17/17 Range/Units 16:19 16:47 16:47 WBC 2.6 L (4.5-11.0) K/mm3 RBC 3.76 (3.65-5.03) M/mm3 Hgb 11.7 L (11.8-15.2) gm/dl Hct 35.3 L (35.5-45.6) % MCV 94 (84-94) fl MCH 31 (28-32) pg MCHC 33 (32-34) % RDW 14.9 (13.2-15.2) % Plt Count 39 L (140-440) K/mm3 Sodium 139 (137-145) mmol/L Potassium 3.8 (3.6-5.0) mmol/L Chloride 101.6 (98-107) mmol/L Carbon Dioxide 25 (22-30) mmol/L Anion Gap 16 mmol/L BUN 16 (9-20) mg/dL Creatinine 2.8 H (0.8-1.5) mg/dL Estimated GFR 29 ml/min BUN/Creatinine Ratio 6 % Glucose 163 H (75-100) mg/dL POC Glucose 170 H (70-105) Calcium 8.3 L (8.4-10.2) mg/dL Total Bilirubin 0.30 (0.1-1.2) mg/dL AST 17 (5-40) units/L ALT 14 (7-56) units/L Alkaline Phosphatase 103 (35-129) units/L Total Protein 6.2 L (6.3-8.2) g/dL Albumin 3.6 L (3.9-5) g/dL Albumin/Globulin Ratio 1.4 % - EKG Data -: EKG Interpreted by Me (anteroseptal infarct) EKG shows normal: sinus rhythm, axis (qrs 50), QRS complexes (qrsd 83), ST-T waves (no stmi) Rate: normal - EKG Data When compared to previous EKG there are: no significant change - Medical Decision Making htn uncontrolled asymptomatic No improvement with clonidine Procardia ordered and patient admitted to hospitalist nephro consulted pancytopenia hx of low plts with previous visits unclear cause no reports of bleeding - Differential Diagnosis htn emergency/urgency, med noncompliance, esrd Critical Care Time: No Critical care attestation.: If time is entered above; I have spent that time in minutes in the direct care of this critically ill patient, excluding procedure time. ED Disposition Clinical Impression: Uncontrolled hypertension, ESRD on hemodialysis, Thrombocytopenia, Pancytopenia Disposition: OP ADMIT IP TO THIS HOSP Is pt being admited?: Yes Condition: Stable Time of Disposition: 19:30 (Dr Machuca/hosp)
[2017-10-17] MEDS ORDERED: PROCARDIA XL PO ONE (20:00)
--- NOTE | 2017-10-17 22:06 | History and Physical Report ---
History of Present Illness Date of examination: 10/17/17 Date of admission: 10/17/17 Chief complaint: CC Sent from Dialysis center for uncontrolled HTN. History of present illness: History of Present Illness: 52-year-old male with a past medical history of end-stage disease on dialysis, diabetes, and hypertension presents to the hospital with elevated blood pressure. Patient did complete his dialysis prior to transport. Patient denies headache, chest pain, shortness of breath, blurry vision, nausea, vomiting, focal weakness or numbness. As per medical record review patient was admitted here in June for uncontrolled hypertension and had a negative stress test and had his medications adjusted for better blood pressure control and Procardia 60 mg xl bid was added. The patient lives in a [facility] and states that they have been giving him his medication. The patient underwent a Lexiscan myocardial perfusion test in Jun 2017, that revealed a small mostly fixed basal inferolateral defect. He has minimal reversibility. Past Medical History Previous Medical History?: Yes Hypertension: Yes Diabetes: Yes Renal Disease--On dialysis Additional medical history: unable to walk due to weak leg muscles Surgical History Past Surgical History?: Yes Additional Surgical History: vas cath to right chest wall Social History Smoking Status: Current Some Day Smoker Substance Use Type: None Medications Home Medications: Home Medications Medication Instructions Recorded Confirmed Last Taken Type Acidophilus 175 mg Capsule 100 mg PO BID 07/08/17 07/08/17 Unknown History Benadryl CAP 25 mg PO Q12H PRN 07/08/17 07/08/17 Unknown History Folic Acid 1 mg PO DAILY 07/08/17 07/08/17 Unknown History Lantus VIAL 10 units SQ QHS 07/08/17 07/08/17 Unknown History Lomotil 2.5-0.025 mg Tablet 2.5 mg PO Q6H PRN 07/08/17 07/08/17 Unknown History Metoprolol Tartrate 25 mg PO Q12H 07/08/17 07/08/17 Unknown History NIFEdipine XL [Procardia Xl] 60 mg PO Q12H #60 tablet 07/08/17 Unknown Rx NovoLOG Flexpen 100 units SQ 07/08/17 Unknown History Phoslo 967 mg PO TID 07/08/17 07/08/17 Unknown History Remeron 15 mg PO QHS 07/08/17 07/08/17 Unknown History Synthroid 25 mcg PO QAM 07/08/17 07/08/17 Unknown History Thiamine HCl 100 mg PO DAILY 07/08/17 07/08/17 Unknown History traMADol [Ultram 50 MG tab] 50 mg PO Q6HR PRN #10 tablet 07/08/17 Unknown Rx Review of Systems ROS: Stated complaint: EVAL BP AFTER DIALYSIS Other details as noted in HPI Comment: All other systems reviewed and negative Medications and Allergies Allergies Allergy/AdvReac Type Severity Reaction Status Date / Time No Known Allergies Allergy Unverified 07/06/17 16:11 Home Medications Medication Instructions Recorded Confirmed Last Taken Type Acidophilus 175 mg Capsule 100 mg PO BID 07/08/17 10/17/17 Unknown History Benadryl CAP 25 mg PO Q12H PRN 07/08/17 10/17/17 Unknown History Folic Acid 1 mg PO DAILY 07/08/17 10/17/17 Unknown History Lantus VIAL 10 units SQ QHS 07/08/17 10/17/17 Unknown History Lomotil 2.5-0.025 mg Tablet 2.5 mg PO Q6H PRN 07/08/17 10/17/17 Unknown History Metoprolol Tartrate 25 mg PO Q12H 07/08/17 10/17/17 Unknown History NIFEdipine XL [Procardia Xl] 60 mg PO Q12H #60 tablet 07/08/17 10/17/17 Unknown Rx NovoLOG Flexpen 3 units SQ AC 07/08/17 10/17/17 Unknown History Phoslo 967 mg PO TID 07/08/17 10/17/17 Unknown History Remeron 15 mg PO QHS 07/08/17 10/17/17 Unknown History Synthroid 25 mcg PO QAM 07/08/17 10/17/17 Unknown History Thiamine HCl 100 mg PO DAILY 07/08/17 10/17/17 Unknown History traMADol [Ultram 50 MG tab] 50 mg PO Q6HR PRN #10 tablet 07/08/17 10/17/17 Unknown Rx Exam - Physical Exam Narrative exam: Lying in bed comfortably - Constitutional Vitals: Temp Pulse Resp BP Pulse Ox 98.0 F 68 16 216/102 100 10/17/17 16:06 10/17/17 21:03 10/17/17 17:03 10/17/17 21:03 10/17/17 17:03 General appearance: Present: no acute distress, well-nourished - EENT Eyes: Present: PERRL ENT: hearing intact, clear oral mucosa - Neck Neck: Present: supple, normal ROM - Respiratory Respiratory effort: normal Respiratory: bilateral: CTA - Cardiovascular Heart rate: 82 Rhythm: regular Heart Sounds: Present: S1 & S2. Absent: rub, click - Extremities Extremities: no ischemia, pulses intact, pulses symmetrical, No edema Peripheral Pulses: within normal limits - Abdominal General gastrointestinal: Present: soft, non-tender, non-distended, normal bowel sounds Male genitourinary: Present: normal - Rectal Rectal Exam: deferred - Integumentary Integumentary: Present: clear, warm, dry - Musculoskeletal Musculoskeletal: gait normal, strength equal bilaterally - Psychiatric Psychiatric: appropriate mood/affect, intact judgment & insight - Neurologic Neurologic: CNII-XII intact, moves all extremities - Allied Health Allied health notes reviewed: nursing, case management Results - Labs CBC & Chem 7: 10/17/17 16:47 10/17/17 16:47 Labs: Laboratory Last Values WBC 2.6 K/mm3 (4.5-11.0) L 10/17/17 16:47 RBC 3.76 M/mm3 (3.65-5.03) 10/17/17 16:47 Hgb 11.7 gm/dl (11.8-15.2) L 10/17/17 16:47 Hct 35.3 % (35.5-45.6) L 10/17/17 16:47 MCV 94 fl (84-94) 10/17/17 16:47 MCH 31 pg (28-32) 10/17/17 16:47 MCHC 33 % (32-34) 10/17/17 16:47 RDW 14.9 % (13.2-15.2) 10/17/17 16:47 Plt Count 39 K/mm3 (140-440) L 10/17/17 16:47 Sodium 139 mmol/L (137-145) 10/17/17 16:47 Potassium 3.8 mmol/L (3.6-5.0) 10/17/17 16:47 Chloride 101.6 mmol/L (98-107) 10/17/17 16:47 Carbon Dioxide 25 mmol/L (22-30) 10/17/17 16:47 Anion Gap 16 mmol/L 10/17/17 16:47 BUN 16 mg/dL (9-20) 10/17/17 16:47 Creatinine 2.8 mg/dL (0.8-1.5) H 10/17/17 16:47 Estimated GFR 29 ml/min 10/17/17 16:47 BUN/Creatinine Ratio 6 % 10/17/17 16:47 Glucose 163 mg/dL (75-100) H 10/17/17 16:47 POC Glucose 170 (70-105) H 10/17/17 16:19 Calcium 8.3 mg/dL (8.4-10.2) L 10/17/17 16:47 Total Bilirubin 0.30 mg/dL (0.1-1.2) 10/17/17 16:47 AST 17 units/L (5-40) 10/17/17 16:47 ALT 14 units/L (7-56) 10/17/17 16:47 Alkaline Phosphatase 103 units/L (35-129) 10/17/17 16:47 Total Protein 6.2 g/dL (6.3-8.2) L 10/17/17 16:47 Albumin 3.6 g/dL (3.9-5) L 10/17/17 16:47 Albumin/Globulin Ratio 1.4 % 10/17/17 16:47 - Imaging and Cardiology EKG: report reviewed (NSR 82/min-Interpreted by me) Assessment and Plan Advance Directives: Yes (Full code) VTE prophylaxis?: Chemical Plan of care discussed with patient/family: Yes - Patient Problems (1) Hypertensive emergency Current Visit: No Status: Acute Plan to address problem: Patinet on Nifedipine and MetoprololAdded Losatan and Amlodipine along with IV Hydralazine 10 mg q3 prn. (2) ESRD on hemodialysis Current Visit: Yes Status: Chronic Plan to address problem: Cont HD as per schedule (3) IDDM (insulin dependent diabetes mellitus) Current Visit: Yes Status: Chronic Plan to address problem: Cont Home insulin and coverage A1c ordered Adjust dosage if necessary (4) Hypothyroidism (acquired) Current Visit: Yes Status: Chronic Plan to address problem: Cont Synthroid (5) Thrombocytopenia Current Visit: Yes Status: Acute Plan to address problem: Etio unclear Dr Brothers consulted (6) DVT prophylaxis Current Visit: Yes Status: Acute Plan to address problem: On [facility] Heparin discontinued sec to Low platelet count
[2017-10-17] MEDS ORDERED: PERCOCET 5/325 PO PRN (22:07)
[2017-10-17] MEDS ORDERED: TYLENOL PO PRN (22:07)
[2017-10-17] MEDS ORDERED: ZOFRAN IV PRN (22:07)
[2017-10-17] MEDS ORDERED: DILAUDID IV PRN (22:07)
[2017-10-17] MEDS ORDERED: MORPHINE IV PRN (22:07)
[2017-10-17] MEDS ORDERED: SODIUM CHLORIDE FLUSH SYRINGE 10 ML IV PRN (22:07)
[2017-10-17] MEDS ORDERED: BENADRYL 25 MG PO PRN (22:09)
[2017-10-17] MEDS ORDERED: DIPHENOXYLATE PO PRN (22:09)
[2017-10-17] MEDS ORDERED: ATROPINE PO PRN (22:09)
[2017-10-17] MEDS ORDERED: ULTRAM PO PRN (22:10)
[2017-10-17] MEDS ORDERED: HumaLOG SUB-Q ONE (22:12)
[2017-10-17] MEDS ORDERED: APRESOLINE IV PRN (22:14)
[2017-10-17] MEDS ORDERED: HumuLIN R ONE (22:34)
[2017-10-18] MEDS ORDERED: LOMOTIL PO PRN (00:12)
[2017-10-18] MEDS: PROCARDIA XL PO SCH ×2 (01:04→10:57)
[2017-10-18] MEDS ORDERED: NON-FORMULARY (Metoprolol Tartrate 25 MG) PO SCH (05:45)
[2017-10-18] MEDS ORDERED: SYNTHROID PO SCH (06:00)
[2017-10-18] MEDS ORDERED: LOPRESSOR PO SCH ×2 (06:00→06:15)
--- NOTE | 2017-10-18 07:29 | Discharge Summary ---
Providers - Providers Date of Admission: 10/17/17 22:07 Attending physician: TERRELL SOLOMON MD 10/17/17 19:28 Consult to Physician [CONS] Urgent Comment: Consulting Provider: PACHECO CARDOZA Physician Instructions: Reason For Exam: esrd, uncontrolled htn 10/18/17 06:14 Consult to Physician [CONS] Routine Comment: Consulting Provider: SANDRA MCGOWAN Physician Instructions: Reason For Exam: Thromocytopenia Primary care physician: [employer] Hospitalization Condition: Stable Hospital course: (1) Hypertensive emergency Current Visit: No Status: Acute Plan to address problem: Patinet on Nifedipine and MetoprololAdded Losatan and Amlodipine along with IV Hydralazine 10 mg q3 prn. (2) ESRD on hemodialysis Current Visit: Yes Status: Chronic Plan to address problem: Cont HD as per schedule (3) IDDM (insulin dependent diabetes mellitus) Current Visit: Yes Status: Chronic Plan to address problem: Cont Home insulin and coverage A1c ordered Adjust dosage if necessary (4) Hypothyroidism (acquired) Current Visit: Yes Status: Chronic Plan to address problem: Cont Synthroid (5) Thrombocytopenia Current Visit: Yes Status: Acute Plan to address problem: Etio unclear Dr Mcgowan consulted (6) DVT prophylaxis Current Visit: Yes Status: Acute Plan to address problem: On [facility] Heparin discontinued sec to Low platelet count Disposition: DC-01 TO HOME OR SELFCARE Time spent for discharge: 33 minutes Core Measure Documentation - Palliative Care Palliative Care/ Comfort Measures: Not Applicable - Core Measures Any of the following diagnoses?: none Exam - Constitutional Vitals: Temp Pulse Resp BP Pulse Ox 98.4 F 74 18 116/70 98 10/18/17 00:49 10/18/17 00:49 10/18/17 01:30 10/18/17 00:49 10/18/17 00:49 General appearance: Present: no acute distress, well-nourished - EENT Eyes: Present: PERRL ENT: hearing intact, clear oral mucosa - Neck Neck: Present: supple, normal ROM - Respiratory Respiratory effort: normal Respiratory: bilateral: CTA - Cardiovascular Heart Sounds: Present: S1 & S2. Absent: rub, click - Extremities Extremities: pulses symmetrical, No edema Peripheral Pulses: within normal limits - Abdominal General gastrointestinal: Present: soft, non-tender, non-distended, normal bowel sounds Male genitourinary: Present: normal - Integumentary Integumentary: Present: clear, warm, dry - Musculoskeletal Musculoskeletal: gait normal, strength equal bilaterally - Psychiatric Psychiatric: appropriate mood/affect, intact judgment & insight - Neurologic Neurologic: CNII-XII intact, moves all extremities Plan Follow up with: PRIMARY CARE, [Primary Care Provider] - 7 Days Prescriptions: Losartan [Cozaar] 100 mg PO QDAY #30 tablet
[2017-10-18] MEDS ORDERED: INSULIN ASPART SQ SCH (07:30)
[2017-10-18] MEDS ORDERED: PHOSLO PO SCH (08:00)
[2017-10-18 08:06] LABS: Basophils % (Auto) 0.6 % (0.0-1.8); Eosinophils # (Auto) 0.2 K/mm3 (0.0-0.4); Eosinophils % (Auto) 3.8 % (0.0-4.3); Hematocrit 34.2 % (35.5-45.6); Hemoglobin 11.4 gm/dl (11.8-15.2); Lymphocytes # (Auto) 0.7 K/mm3 (1.2-5.4); Lymphocytes % (Auto) 15.9 % (13.4-35.0); Mean Corpuscular HGB Conc 33 % (32-34); Mean Corpuscular Hemoglobin 32 pg (28-32); Mean Corpuscular Volume 95 fl (84-94); Monocytes # (Auto) 0.4 K/mm3 (0.0-0.8); Monocytes % (Auto) 8.9 % (0.0-7.3); Red Blood Count 3.61 M/mm3 (3.65-5.03); Red Cell Distribution Width 14.7 % (13.2-15.2)
[2017-10-18 08:07] LABS: Platelet Count 50 K/mm3 (140-440)
[2017-10-18 08:11] LABS: Albumin 3.2 g/dL (3.9-5); Calcium 8.2 mg/dL (8.4-10.2)
[2017-10-18] MEDS: PHOSLO PO SCH ×2 (08:58→12:26)
[2017-10-18] MEDS: HumaLOG SUB-Q SCH ×2 (09:00→12:32)
[2017-10-18] MEDS ORDERED: NORVASC PO SCH (10:00)
[2017-10-18] MEDS ORDERED: VITAMIN B-1 PO SCH (10:00)
[2017-10-18] MEDS ORDERED: SODIUM CHLORIDE FLUSH SYRINGE 10 ML IV SCH (10:00)
[2017-10-18] MEDS ORDERED: COZAAR PO SCH (10:00)
[2017-10-18] MEDS ORDERED: HEPARIN SUB-Q SCH (10:00)
[2017-10-18] MEDS ORDERED: LACTINEX PO SCH (10:00)
[2017-10-18] MEDS ORDERED: ACIDOPHILUS PO SCH (10:00)
[2017-10-18] MEDS ORDERED: SYNTHROID 25 MCG PO SCH (10:00)
[2017-10-18] MEDS ORDERED: NON-FORMULARY (Folic Acid 1 MG) PO SCH (10:00)
[2017-10-18] MEDS ORDERED: THIAMINE HCL 100 MG PO SCH (10:00)
[2017-10-18] MEDS ORDERED: FOLVITE PO SCH (10:00)
[2017-10-18 10:55] LABS: % Iron Saturation 26.22 %
[2017-10-18] MEDS ORDERED: NACL 0.9% 500 ML 500 ML IV ONE (11:15)
[2017-10-18] MEDS ORDERED: BENADRYL PO PRN (12:05)
--- NOTE | 2017-10-18 13:34 | Consultation ---
REFERRING PHYSICIAN: Dr. Sumner. REASON FOR CONSULTATION: Thrombocytopenia. HISTORY OF PRESENT ILLNESS: The patient is a 52-year-old male with history of end-stage renal disease, diabetes, hypertension, presented to the hospital with elevated blood pressure. He did not complete his dialysis on yesterday. He denies any headaches, shortness of breath, blurry vision, nausea, vomiting. On his lab work, he was found to have a platelet count of 39,000, white count of 2.6. Hematology consult was called. The patient denies any previous history of thrombocytopenia, although he is not in any mental status to be able to accurately tell me that. Patient on his review of old records, he has had low platelets even back about 4-5 months ago. I am not sure if any workup was done unless it was done as outpatient. PAST MEDICAL HISTORY: Positive for weakness. He is unable to walk due to weakness in his leg muscles, cause not known. He has history of hypertension, diabetes, end-stage renal disease. SOCIAL HISTORY: Positive for tobacco abuse. Does not currently drink alcohol. He states he used to drink alcohol and also do drugs in the form of methamphetamine. PHYSICAL EXAMINATION: GENERAL: The patient is awake. He has some slurred speech, which seems to be chronic. HEAD AND ENT: Unremarkable for any adenopathy. LUNGS: Chest is clear. CARDIOVASCULAR: Regular. ABDOMEN: Soft. EXTREMITIES: No edema. PERTINENT LABORATORY DATA: Today's white count is 4.2, hemoglobin 11.4, platelets 50,000. His platelets yesterday were 39,000. Old records do show thrombocytopenia in the past in the same range. ASSESSMENT: Chronic thrombocytopenia, cause not been able to be established. PLAN: At this time, we will do basic workup including hepatitis profile, B12, folate, and anemia workup. I can see him as outpatient since this seems to be a chronic issue. JOB# [id number] MIKE/JACOBY
[2017-10-18] MEDS ORDERED: NACL 0.9% 100 ML IV PRN (14:55)
--- NOTE | 2017-10-18 14:55 | Consultation ---
History of Present Illness - Reason for Consult Consult date: 10/18/17 Requesting physician: TERRELL SOLOMON - History of Present Illness 52-year-old male with a past medical history of end-stage disease on dialysis, diabetes, and hypertension presents to the hospital with elevated blood pressure. Patient did complete his dialysis prior to transport. Patient denies headache, chest pain, shortness of breath, blurry vision, nausea, vomiting, focal weakness or numbness. As per medical record review patient was admitted here in June for uncontrolled hypertension and had a negative stress test and had his medications adjusted for better blood pressure control and Procardia 60 mg xl bid was added. The patient [facility] a [facility] and states that they have been giving him his medication. The patient underwent a Lexiscan myocardial perfusion test in Jun 2017, that revealed a small mostly fixed basal inferolateral defect. He has minimal reversibility Past History Past Medical History: dialysis, hypertension Past Surgical History: Other (permcath placement ) Medications and Allergies Allergies Allergy/AdvReac Type Severity Reaction Status Date / Time No Known Allergies Allergy Unverified 07/06/17 16:11 Home Medications Medication Instructions Recorded Confirmed Last Taken Type Acidophilus 175 mg Capsule 100 mg PO BID 07/08/17 10/17/17 Unknown History Benadryl CAP 25 mg PO Q12H PRN 07/08/17 10/17/17 Unknown History Folic Acid 1 mg PO DAILY 07/08/17 10/17/17 Unknown History Lantus VIAL 10 units SQ QHS 07/08/17 10/17/17 Unknown History Lomotil 2.5-0.025 mg Tablet 2.5 mg PO Q6H PRN 07/08/17 10/17/17 Unknown History Metoprolol Tartrate 25 mg PO Q12H 07/08/17 10/17/17 Unknown History NIFEdipine XL [Procardia Xl] 60 mg PO Q12H #60 tablet 07/08/17 10/17/17 Unknown Rx NovoLOG Flexpen 3 units SQ AC 07/08/17 10/17/17 Unknown History Phoslo 967 mg PO TID 07/08/17 10/17/17 Unknown History Remeron 15 mg PO QHS 07/08/17 10/17/17 Unknown History Synthroid 25 mcg PO QAM 07/08/17 10/17/17 Unknown History Thiamine HCl 100 mg PO DAILY 07/08/17 10/17/17 Unknown History traMADol [Ultram 50 MG tab] 50 mg PO Q6HR PRN #10 tablet 07/08/17 10/17/17 Unknown Rx Losartan [Cozaar] 100 mg PO QDAY #30 tablet 10/18/17 Unknown Rx Active Meds: Active Medications Acetaminophen (Tylenol) 650 mg PO Q4H PRN PRN Reason: Pain MILD(1-3)/Fever >100.5/WONG Calcium Acetate (Phoslo) 667 mg PO TIDWM [facility] Last Admin: 10/18/17 12:26 Dose: 667 mg Diphenhydramine HCl (Benadryl) 25 mg PO Q12H PRN PRN Reason: Itching Diphenoxylate HCl/Atropine (Lomotil) 1 tab PO Q6H PRN PRN Reason: Diarrhea Folic Acid (Folvite) 1 mg PO DAILY [facility] Last Admin: 10/18/17 10:56 Dose: 1 mg Hydralazine HCl (Apresoline) 10 mg IV Q3H PRN PRN Reason: Blood Pressure Last Admin: 10/17/17 23:45 Dose: 10 mg Hydromorphone HCl (Dilaudid) 0.5 mg IV Q3H PRN PRN Reason: Pain , Severe (7-10) Insulin Glargine (Lantus) 10 units SUB-Q QHS [facility] Insulin Human Lispro (Humalog) 3 unit SUB-Q AC [facility] Last Admin: 10/18/17 12:32 Dose: 3 unit Lactobacillus Acidophilus (Lactinex) 1 each PO BID [facility] Last Admin: 10/18/17 10:56 Dose: 1 each Levothyroxine Sodium (Synthroid) 25 mcg PO DAILY@0600 [facility] Last Admin: 10/18/17 05:51 Dose: 25 mcg Losartan Potassium (Cozaar) 100 mg PO QDAY [facility] Last Admin: 10/18/17 10:57 Dose: Not Given Metoprolol Tartrate (Lopressor) 25 mg PO BID [facility] Last Admin: 10/18/17 06:30 Dose: Not Given Mirtazapine (Remeron) 15 mg PO QHS [facility] Morphine Sulfate (Morphine) 2 mg IV Q4H PRN PRN Reason: Pain, Moderate (4-6) Nifedipine (Procardia Xl) 60 mg PO Q12H [facility] Last Admin: 10/18/17 10:57 Dose: Not Given Ondansetron HCl (Zofran) 4 mg IV Q8H PRN PRN Reason: Nausea And Vomiting Oxycodone/Acetaminophen (Percocet 5/325) 1 tab PO Q6H PRN PRN Reason: Pain, Moderate (4-6) Pneumococcal Polyvalent Vaccine (Pneumovax 23) 0.5 ml IM .ONCE ONE Stop: 10/19/17 12:01 Sodium Chloride (Sodium Chloride Flush Syringe 10 Ml) 10 ml IV BID [facility] Last Admin: 10/18/17 10:57 Dose: 10 ml Sodium Chloride (Sodium Chloride Flush Syringe 10 Ml) 10 ml IV PRN PRN PRN Reason: LINE FLUSH Thiamine HCl (Vitamin B-1) 100 mg PO QDAY [facility] Last Admin: 10/18/17 10:56 Dose: 100 mg Tramadol HCl (Ultram) 50 mg PO Q6H PRN PRN Reason: Pain Review of Systems All systems: negative (as noted above) Exam - Vital Signs Vital signs: Vital Signs Temp Pulse Resp BP Pulse Ox 98.0 F 78 18 195/107 99 10/17/17 16:06 10/17/17 16:06 10/17/17 16:06 10/17/17 16:06 10/17/17 16:06 - General Appearance General appearance: chronically ill, frail EENT: PERRL, mucous membranes moist Neck: Present: neck supple, trachea midline, Other (right IJ permcath in place ) . Absent: JVD/HJR, Masses Respiratory: Clear to Ascultation Heart: regular, normal heart rate Gastrointestinal: Present: normal, normoactive bowel sounds Integumentary: other (no edema ) Results - Lab Results 10/18/17 07:07 10/18/17 07:07 Most recent lab results Calcium 8.2 mg/dL (8.4-10.2) L 10/18/17 07:07 Assessment and Plan Impression * ESRD * Accelerated hypertension * Anemia * Diabetes * Thrombocytopenia Recommendation * No indication for dialysis today * Schedule patient for dialysis tomorrow and keep him on TTS schedule as outpatient * binders wth diet * epogen with dialysis * hematology evaluation appreciated * Adjust diet and meds for ESRD * Thanks, Shall follow with you
[2017-10-18 15:01] VITALS: BP 108/64
--- NOTE | 2017-10-18 15:33 | Progress Note ---
Assessment and Plan Assessment and plan: Postdialysis hypotension (1) Hypertensive emergency Current Visit: No Status: Acute Plan to address problem: Patinet on Nifedipine and MetoprololAdded Losatan and Amlodipine along with IV Hydralazine 10 mg q3 prn. (2) ESRD on hemodialysis Current Visit: Yes Status: Chronic Plan to address problem: Cont HD as per schedule (3) IDDM (insulin dependent diabetes mellitus) Current Visit: Yes Status: Chronic Plan to address problem: Cont Home insulin and coverage A1c ordered Adjust dosage if necessary (4) Hypothyroidism (acquired) Current Visit: Yes Status: Chronic Plan to address problem: Cont Synthroid (5) Thrombocytopenia Current Visit: Yes Status: Acute Plan to address problem: Etio unclear Dr Brothers consulted (6) DVT prophylaxis Current Visit: Yes Status: Acute Plan to address problem: On [facility] Heparin discontinued sec to Low platelet count Disposition: DC-01 TO HOME OR SELFCARE Time spent for discharge: 33 minutes History Interval history: Review of systems Constitutional: No fevers, no malaise, no joint pains CVS: No chest pain, no orthopnea, no dyspnea on exertion, no pedal edema GI: No abdominal pain, no diarrhea, no vomiting, no constipation Respiratory: No shortness of breath, no wheezing, no coughing Hospitalist Physical - Physical exam Narrative exam: General.: Appears well, no distress, nontoxic HEENT: Moist mucous membranes, extraocular muscles intact, no lymphadenopathy Neck: supple Cardiac: S1-S2 heard Lungs: clear to auscultation bilaterally Abdomen: soft , nontender, nondistended, bowel sounds positive Extremities: no edema clubbing or cyanosis Skin: no rash or lesions Neurologic: no gross focal deficits Psych: appropriate behavior, appropriate mood, corporative, judgment intact - Constitutional Vitals: Temp Pulse Resp BP Pulse Ox 98.3 F 66 18 108/64 95 10/18/17 15:00 10/18/17 15:00 10/18/17 15:00 10/18/17 15:00 10/18/17 15:00 General appearance: Present: no acute distress, well-nourished Results - Labs CBC & Chem 7: 10/18/17 07:07 10/18/17 07:07 Labs: Laboratory Last Values WBC 4.2 K/mm3 (4.5-11.0) L 10/18/17 07:07 RBC 3.61 M/mm3 (3.65-5.03) L 10/18/17 07:07 Hgb 11.4 gm/dl (11.8-15.2) L 10/18/17 07:07 Hct 34.2 % (35.5-45.6) L 10/18/17 07:07 MCV 95 fl (84-94) H 10/18/17 07:07 MCH 32 pg (28-32) 10/18/17 07:07 MCHC 33 % (32-34) 10/18/17 07:07 RDW 14.7 % (13.2-15.2) 10/18/17 07:07 Plt Count 50 K/mm3 (140-440) L 10/18/17 07:07 Lymph % (Auto) 15.9 % (13.4-35.0) 10/18/17 07:07 [place] % (Auto) 8.9 % (0.0-7.3) H 10/18/17 07:07 Eos % (Auto) 3.8 % (0.0-4.3) 10/18/17 07:07 Baso % (Auto) 0.6 % (0.0-1.8) 10/18/17 07:07 Lymph # 0.7 K/mm3 (1.2-5.4) L 10/18/17 07:07 [place] # 0.4 K/mm3 (0.0-0.8) 10/18/17 07:07 Eos # 0.2 K/mm3 (0.0-0.4) 10/18/17 07:07 Baso # 0.0 K/mm3 (0.0-0.1) 10/18/17 07:07 Seg Neutrophils % 70.8 % (40.0-70.0) H 10/18/17 07:07 Seg Neutrophils # 3.0 K/mm3 (1.8-7.7) 10/18/17 07:07 ESR 14 mm/Hr (0-20) 10/18/17 09:54 Sodium 138 mmol/L (137-145) 10/18/17 07:07 Potassium 4.0 mmol/L (3.6-5.0) 10/18/17 07:07 Chloride 103.1 mmol/L (98-107) 10/18/17 07:07 Carbon Dioxide 23 mmol/L (22-30) 10/18/17 07:07 Anion Gap 16 mmol/L 10/18/17 07:07 BUN 26 mg/dL (9-20) H 10/18/17 07:07 Creatinine 3.9 mg/dL (0.8-1.5) H 10/18/17 07:07 Estimated GFR 20 ml/min 10/18/17 07:07 BUN/Creatinine Ratio 7 % 10/18/17 07:07 Glucose 110 mg/dL (75-100) H 10/18/17 07:07 POC Glucose 198 (70-105) H 10/17/17 22:37 Hemoglobin A1c 7.3 % (4-6) H 10/17/17 16:47 Calcium 8.2 mg/dL (8.4-10.2) L 10/18/17 07:07 Iron 43 ug/dL (49-181) L 10/18/17 09:54 TIBC 164 mcg/dL (250-450) L 10/18/17 09:54 % Saturation 26.22 % 10/18/17 09:54 Transferrin 146 mg/dl (180-329) L 10/18/17 09:54 Ferritin 969.6 ng/mL (13.0-400.0) H 10/18/17 09:54 Total Bilirubin 0.40 mg/dL (0.1-1.2) 10/18/17 07:07 AST 12 units/L (5-40) 10/18/17 07:07 ALT 11 units/L (7-56) 10/18/17 07:07 Alkaline Phosphatase 80 units/L (35-129) 10/18/17 07:07 Total Protein 5.5 g/dL (6.3-8.2) L 10/18/17 07:07 Albumin 3.2 g/dL (3.9-5) L 10/18/17 07:07 Albumin/Globulin Ratio 1.4 % 10/18/17 07:07 Vitamin B12 572.5 pg/mL (211-911) 10/18/17 09:54 Hep Bs Antigen Non-reactive (Negative) 10/18/17 09:54 Hepatitis C Antibody Non-reactive (NonReactive) 10/18/17 09:54
[2017-10-18] MEDS ORDERED: LANTUS SUB-Q SCH (22:00)
[2017-10-18] MEDS ORDERED: LANTUS 10 UNIT SQ SCH (22:00)
[2017-10-18] MEDS ORDERED: REMERON 15 MG PO SCH (22:00)
[2017-10-18] MEDS ORDERED: REMERON PO SCH (22:00)
[2017-10-19] MEDS ORDERED: PNEUMOVAX 23 IM ONE (12:00)
[2017-10-21 09:33] LABS: Heparin-Induced Platelet Antib Negative (Negative); Unfractionated Heparin Negative (Negative)
== END 2017-10-18 15:54 | DRG 304 ==
LOC: ED 16:00 → 3A 22:07
PROVIDERS: ADMIT Internal Medicine; ATTEND Internal Medicine
DX: I16.1 Hypertensive emergency (principal); N18.6 End stage renal disease; D61.818 Other pancytopenia; E11.22 Type 2 diabetes mellitus with diabetic chronic kidney disease; I12.0 Hypertensive chronic kidney disease with stage 5 chronic kidney disease or end stage renal disease; F17.200 Nicotine dependence, unspecified, uncomplicated; E03.9 Hypothyroidism, unspecified; Z99.2 Dependence on renal dialysis; Z79.4 Long term (current) use of insulin; I95.3 Hypotension of hemodialysis
CPT/HCPCS: 36415; 80053; 82607; 82728; 82962; 83036; 83550; 85025; 85027; 85652; 86022; 86706; 86803; 93005; 93010; J0360; J1815; J7040

== ENCOUNTER 2018-05-07 09:37 | Day surgery (SDC) | payer MEDICARE ==
[~2018-05-07 09:37] MED LIST: ANCEF/STERILE WATER 2 GM/20 ML 2 GM/20 ML SYRINGE IV NR; NACL 0.9% 1000 ML 1,000 ML IV SCH
[2018-05-07 10:39] LABS: Eosinophils # (Auto) 0.1 K/mm3 (0.0-0.4); Eosinophils % (Auto) 2.9 % (0.0-4.3); Hematocrit 34.8 % (35.5-45.6); Hemoglobin 11.8 gm/dl (11.8-15.2); Lymphocytes # (Auto) 1.4 K/mm3 (1.2-5.4); Lymphocytes % (Auto) 28.6 % (13.4-35.0); Mean Corpuscular HGB Conc 34 % (32-34); Mean Corpuscular Hemoglobin 31 pg (28-32); Mean Corpuscular Volume 91 fl (84-94); Monocytes # (Auto) 0.6 K/mm3 (0.0-0.8); Monocytes % (Auto) 12.6 % (0.0-7.3); Red Blood Count 3.81 M/mm3 (3.65-5.03); Red Cell Distribution Width 13.4 % (13.2-15.2)
[2018-05-07 10:41] LABS: Platelet Count 58 K/mm3 (140-440)
[2018-05-07 10:46] LABS: Calcium 8.6 mg/dL (8.4-10.2)
[2018-05-07] MEDS ORDERED: VANCOMYCIN/NS 1 GM/250 ML 1 GM/250 ML BAG IV NR (12:00)
[2018-05-07] MEDS ORDERED: HEPARIN/NS 5000 UNIT/500ML(CATH LAB) 1,000 ML IR ONE (15:37)
[2018-05-07] MEDS ORDERED: HEPARIN 10,000 UNITS/10 ML ONE (15:37)
[2018-05-07] MEDS ORDERED: VERSED ONE (15:38)
[2018-05-07] MEDS ORDERED: SUBLIMAZE ONE (15:38)
[2018-05-07] MEDS ORDERED: NACL 0.9% 500 ML 500 ML ONE (15:48)
[2018-05-07] MEDS: XYLOCAINE 2% INFILTRATI ONE ×2 (16:04→16:44)
--- NOTE | 2018-05-07 17:18 | Operative Report ---
Operative Report Operative Report: Date of procedure: 05/07/2018 Pre-operative diagnosis: Thrombosed hemodialysis graft, end-stage renal disease Post-operative diagnosis: Same Procedure name(s): Percutaneous mechanical thrombectomy of thrombosed hemodialysis graft left arm with balloon angioplasty of peripheral hemodialysis circuit Surgeon: Bridger Smyth MD Inspector Heating And Refrigeration: None Anesthesia: Moderate sedation start time 1603 termination time 1645 total moderate sedation time 42 minutes EBL: Minimal Specimen(s): None Complications: None Findings: Small brachial artery but adequate inflow and venous outflow stenosis just beyond the graft vein anastomosis vein slightly small but still adequate. Procedure: With the left arm extended entire extremity was then prepped and draped using standard sterile technique. Access to the thrombosed actcuseal graft was performed through anesthetized skin using micropuncture technique. There is an area of slight discoloration overlying what appeared to be the original access in the duplex scan suggested a small perigraft hematoma therefore I stuck a little more proximally on the arm specifically avoid this area using micropuncture technique and gained immediate access to the graft. I upsized to a 6 Japanese introducer and heparinized the patient and initially could not pass the wire beyond the venous anastomosis. Using a vertebral catheter however I was able to manipulate the wire crossed the stenosis and into the central circulation. Central circulation was assessed with contrast and noted to be widely patent without stenosis. Leaving the wire in place I exchanged the vertebral catheter for an 8 x 4 balloon and angioplastied the stenotic lesion. Considerable improvement was noted. I then inserted a treratola rotational thrombectomy device and passed through the venous end of the graft removing all thrombus. Second sheath was then inserted again using ultrasound-guided micropuncture technique towards the arterial anastomosis. The treratola device was used to remove thrombus from the main body of the graft but I could not detect flow and therefore advanced a wire all the way into the proximal brachial artery. A [id number] balloon Yoselin catheter was used to remove the fibrin plug. Contrast was injected down the brachial artery showing that vessel to be widely patent but small with a now patent graft artery anastomosis. Residual thrombus was removed using balloon maceration and mechanical thrombectomy of the graft was completely clear of thrombus. The venous outflow tract and felt that it was satisfactory size with no significant stenosis. All wires and catheters were removed and each sheath was then extracted over a pursestring chromic sutu re. A small hematoma formed at the venous cannulation site but this was controlled with manual compression. Patient was then returned to the recovery area in stable condition having tolerated the procedure well. Area of erythema was marked for observation by the dialysis nurses. Should note that patient was given a gram of vancomycin prior to initiation of this procedure.
--- NOTE | 2018-05-07 17:22 | Short Stay Summary ---
Short Stay Documentation Date of service: 05/07/18 Narrative H&P: Patient admitted to the [facility] for outpatient rescue of a thrombosed AV graft in his left arm. Short stay H&P filled out in paper form preoperatively - History H&P: obtained from office - Allergies and Medications Current Medications: Allergies No Known Drug Allergies Allergy (Verified 03/17/18 09:49) Unknown PT STATES THAT HE TOLD JAIL HE WAS ALLERGIC TO MORPHINE BECAUSE HE WAS AFRAID IF HE DIDN'T WRITE DOWN SOMETHING BEING WRONG WITH HIM THAT WOULDN'T LET HIM STAY Home Medications Medication Instructions Recorded Confirmed Last Taken Type Acidophilus 175 mg Capsule 100 mg PO BID 07/08/17 05/07/18 05/06/18 History 100mg Benadryl CAP 25 mg PO Q12H PRN 07/08/17 05/07/18 03/16/18 History Folic Acid 1 mg PO DAILY 07/08/17 05/07/18 05/06/18 History 1 mg Lantus VIAL 10 units SQ QHS 07/08/17 05/07/18 05/06/18 History 10 units Lomotil 2.5-0.025 mg Tablet 2.5 mg PO Q6H PRN 07/08/17 05/07/18 03/16/18 History Metoprolol Tartrate 25 mg PO Q12H 07/08/17 05/07/18 05/06/18 History 25mg NovoLOG Flexpen 3 units SQ AC 07/08/17 05/07/18 05/06/18 History 3 units Phoslo 667 mg PO TID 07/08/17 05/07/18 05/06/18 History 667mg Remeron 15 mg PO QHS 07/08/17 05/07/18 05/06/18 History 15mg Synthroid 25 mcg PO QAM 07/08/17 05/07/18 05/06/18 History 25mcg Thiamine HCl 100 mg PO DAILY 07/08/17 05/07/18 05/06/18 History 100mg Ergocalciferol [Vitamin D2] 1 cap PO 2XW 03/17/18 05/07/18 05/06/18 History 1 HYDROcodone/ACETAMINOPHEN [[place] 1 each PO Q4-6H PRN #25 tablet 03/17/18 05/07/18 Unknown Rx 5-325 Tablet] Losartan [Cozaar] 50 mg PO QDAY 03/17/18 05/07/18 05/06/18 History 50mg Spironolactone [Aldactone] 25 mg PO QDAY 03/17/18 05/07/18 05/06/18 History 25mg Active Medications Cefazolin Sodium (Ancef/Sterile Water 2 Gm/20 Ml) 2 gm in 20 mls @ 80 mls/hr IV PREOP NR; Protocol Stop: 05/07/18 23:59 Sodium Chloride (Nacl 0.9% 1000 Ml) 1,000 mls @ 42 mls/hr IV DIRECT MAGDALENE - Brief post op/procedure progress note Date of procedure: 05/07/18 Procedure: Pre-operative diagnosis: Thrombosed hemodialysis graft, end-stage renal disease Post-operative diagnosis: Same Procedure name(s): Percutaneous mechanical thrombectomy of thrombosed hemodialysis graft left arm with balloon angioplasty of peripheral hemodialysis circuit Surgeon: Bridger Smyth MD Surface Plate Finisher: None Anesthesia: Moderate sedation start time 1603 termination time 1645 total moderate sedation time 42 minutes EBL: Minimal Specimen(s): None Complications: None Findings: Small brachial artery but adequate inflow and venous outflow stenosis just beyond the graft vein anastomosis vein slightly small but still adequate. Procedure: With the left arm extended entire extremity was then prepped and draped using standard sterile technique. Access to the thrombosed actcuseal graft was performed through anesthetized skin using micropuncture technique. There is an area of slight discoloration overlying what appeared to be the original access in the duplex scan suggested a small perigraft hematoma therefore I stuck a little more proximally on the arm specifically avoid this area using micropuncture technique and gained immediate access to the graft. I upsized to a 6 Amharic introducer and heparinized the patient and initially could not pass the wire beyond the venous anastomosis. Using a vertebral catheter however I was able to manipulate the wire crossed the stenosis and into the central circulation. Central circulation was assessed with contrast and noted to be widely patent without stenosis. Leaving the wire in place I exchanged the vertebral catheter for an 8 x 4 balloon and angioplastied the stenotic lesion. Considerable improvement was noted. I then inserted a treratola rotational thrombectomy device and passed through the venous end of the graft removing all thrombus. Second sheath was then inserted again using ultrasound-guided micropuncture technique towards the arterial anastomosis. The treratola device was used to remove thrombus from the main body of the graft but I could not detect flow and therefore advanced a wire all the way into the proximal brachial artery. A evqi-zde-mzev balloon Yoselin catheter was used to remove the fibrin plug. Contrast was injected down the brachial artery showing that vessel to be widely patent but small with a now patent graft artery anastomosis. Residual thrombus was removed using balloon maceration and mechanical thrombectomy of the graft was completely clear of thrombus. The venous outflow tract and felt that it was satisfactory size with no significant stenosis. All wires and catheters were removed and each sheath was then extracted over a pursestring chromic suture. A small hematoma formed at the venous cannulation site but this was controlled with manual compression. Patient was then returned to the recovery area in stable condition having tolerated the procedure well. Area of erythema was marked for observation by the dialysis nurses. Should note that patient was given a gram of vancomycin prior to initiation of this procedure. - Hospital course Hospital course: Unremarkable - Disposition Condition at discharge: Stable Disposition: [id number]/[id number] SNF W [facility] - Discharge Diagnoses (1) Mechanical complication of arteriovenous shunt surgically created Status: Acute Qualifiers: Encounter type: initial encounter Qualified Code(s): T82.590A - Other mechanical complication of surgically created arteriovenous fistula, initial encounter (2) ESRD on hemodialysis Status: Chronic Short Stay Discharge Plan Activity: advance as tolerated Weight Bearing Status: Weight Bear as Tolerated Diet: renal Wound: keep clean and dry Special Instructions: no heavy lifting Follow up with: TEO AVILES MD [Primary Care Provider] - 7 Days
[2018-05-07 17:27] VITALS: BP 162/93
== END 2018-05-07 17:57 ==
LOC: CATHLABREC 09:37
PROVIDERS: ATTEND Surgery Vascular Surgery
DX: T82.868A Thrombosis due to vascular prosthetic devices, implants and grafts, initial encounter (principal); I12.0 Hypertensive chronic kidney disease with stage 5 chronic kidney disease or end stage renal disease; E11.22 Type 2 diabetes mellitus with diabetic chronic kidney disease; N18.6 End stage renal disease; D69.6 Thrombocytopenia, unspecified; E03.9 Hypothyroidism, unspecified; T82.590A Other mechanical complication of surgically created arteriovenous fistula, initial encounter; F32.9 Major depressive disorder, single episode, unspecified; Z99.2 Dependence on renal dialysis; Z79.899 Other long term (current) drug therapy; Z87.891 Personal history of nicotine dependence; Z98.890 Other specified postprocedural states; Y83.8 Other surgical procedures as the cause of abnormal reaction of the patient, or of later complication, without mention of misadventure at the time of the procedure; Y92.89 Other specified places as the place of occurrence of the external cause
CPT/HCPCS: 36415; 36905; 80048; 82962; 85025; 96365; 99156; 99157; C1725; C1751; C1757; C1894; J1644; J2250; J3010; J3370; J7040; Q9967

== ENCOUNTER 2018-06-26 07:40 | Inpatient (IN) | payer MEDICARE ==
[2018-06-26] MEDS ORDERED: VERSED IV NR (09:00)
[2018-06-26] MEDS: HumuLIN R IV SCH ×2 (09:58→10:54)
[2018-06-26] MEDS ORDERED: SUBLIMAZE ONE (10:48)
[2018-06-26] MEDS ORDERED: XYLOCAINE MPF 2% ONE (10:48)
[2018-06-26] MEDS ORDERED: DIPRIVAN 10 MG/ML IV ONE (10:49)
[2018-06-26] MEDS ORDERED: MARCAINE 0.5% INFILTRATI ONE ×2 (11:28→11:43)
[2018-06-26] MEDS ORDERED: NACL 0.9% IR ONE (11:28)
[2018-06-26] MEDS ORDERED: XYLOCAINE 1%/ EPI 1:100,000 INFILTRATI ONE ×2 (11:28→11:43)
[2018-06-26] MEDS ORDERED: HEPARIN 10,000 UNITS/10 ML IR ONE (11:28)
[2018-06-26] MEDS ORDERED: NACL 0.9% 500 ML IRRIGATION ONE (11:28)
[2018-06-26] MEDS ORDERED: NACL 0.9% 500 ML 500 ML ONE (11:42)
[2018-06-26] MEDS ORDERED: HEPARIN 10,000 UNITS/10 ML ONE (11:42)
[2018-06-26] MEDS ORDERED: SUBLIMAZE IV PRN (11:52)
--- NOTE | 2018-06-26 11:54 | Anesthesia Consultation ---
Anesthesia Consult and Med Hx Date of service: 06/26/18 - Airway Anesthetic Teeth Evaluation: Edentulous ROM Head & Neck: Adequate Mental/Hyoid Distance: Adequate Mallampati Class: Class I Intubation Access Assessment: Good - Pulmonary Exam CTA: Yes - Cardiac Exam Cardiac Exam: RRR - Pre-Operative Health Status ASA Pre-Surgery Classification: ASA4 Proposed Anesthetic Plan: General - Pulmonary Hx Smoking: Yes (former smoker; unsure of stop date) Hx Respiratory Symptoms: No COPD: No Home Oxygen Therapy: No - Cardiovascular System Hx Hypertension: Yes Hx Heart Attack/AMI: No - Central Nervous System CVA: No Hx Psychiatric Problems: Yes (dementia) - Gastrointestinal Hx Gastroesophageal Reflux Disease: No - Endocrine Hx End Stage Renal Disease: Yes (last HD 06/24/18) Hx Insulin Dependent Diabetes: Yes - Hematic Hx Anemia: Yes - Other Systems Hx Obesity: No - Additional Comments Anesthesia Medical History Comments: No hx anesthetic complications.
--- NOTE | 2018-06-26 11:54 | Anesthesia Day of Surgery ---
Anesthesia Day of Surgery - Day of Surgery Patient Examined: Yes Patient H&P Reviewed: Yes Patient is NPO: Yes
[2018-06-26] MEDS ORDERED: PROVENTIL IH PRN (12:43)
[2018-06-26] MEDS ORDERED: SODIUM CHLORIDE FLUSH SYRINGE 10 ML IV PRN (12:43)
[2018-06-26] MEDS ORDERED: ZOFRAN IV PRN (12:43)
[2018-06-26] MEDS ORDERED: TYLENOL PO PRN (12:43)
[2018-06-26] MEDS ORDERED: BENADRYL 25 MG PO PRN (12:46)
[2018-06-26] MEDS ORDERED: ATROPINE PO PRN (12:46)
[2018-06-26] MEDS ORDERED: NORCO 5/325 PO PRN (12:46)
[2018-06-26] MEDS ORDERED: DIPHENOXYLATE PO PRN (12:46)
--- NOTE | 2018-06-26 12:50 | History and Physical Report ---
History of Present Illness Chief complaint: I need dialysis History of present illness: 52 YO Male [facility] Resident with ESRD on HD(T,R,Sa), HTN, DM, Nicotine Dependence, Debility presents to [facility] for elective vascular procedure and found to have infected AV Graft. Pt taken to OR and underwent removal of AV graft with repair of brachial vessels. Pt treated with IV antibiotic therapy in OR. Pt seen and evaluated uopn arrival to his room. Pt found to have ESRD. Pt resting comfortably at time of exam. Pt denies fever, chills, CP, palpitations, NVD, productive cough, or recent ill contacts. Pt is in his usual state of health. No reported nursing events. Nephrology consulted. Past History Past Medical History: diabetes, ESRD, hypertension, other (Debility) Past Surgical History: Other (Vas cath placement, ) Social history: single. denies: smoking, alcohol abuse, prescription drug abuse Family history: hypertension Medications and Allergies Allergies Allergy/AdvReac Type Severity Reaction Status Date / Time No Known Drug Allergies Allergy Unknown Verified 06/24/18 10:40 Home Medications Medication Instructions Recorded Confirmed Last Taken Type Acidophilus 175 mg Capsule 100 mg PO BID 07/08/17 06/26/18 06/26/18 06:00 History Benadryl CAP 25 mg PO Q12H PRN 07/08/17 06/24/18 03/16/18 History Folic Acid 1 mg PO DAILY 07/08/17 06/26/18 06/26/18 06:00 History Lantus VIAL 10 units SQ QHS 07/08/17 06/26/18 06/25/18 21:00 History Lomotil 2.5-0.025 mg Tablet 2.5 mg PO Q6H PRN 07/08/17 06/24/18 03/16/18 History Metoprolol Tartrate 25 mg PO Q12H 07/08/17 06/26/18 06/26/18 06:00 History NovoLOG Flexpen 3 units SQ AC 07/08/17 06/26/18 06/25/18 21:00 History Phoslo 667 mg PO TID 07/08/17 06/26/18 06/25/18 21:00 History Remeron 15 mg PO QHS 07/08/17 06/26/18 06/25/18 21:00 History Synthroid 25 mcg PO QAM 07/08/17 06/26/18 06/26/18 06:00 History Thiamine HCl 100 mg PO DAILY 07/08/17 06/26/18 06/26/18 06:00 History Ergocalciferol [Vitamin D2] 1 cap PO 2XW 03/17/18 06/26/18 06/25/18 06:00 History HYDROcodone/ACETAMINOPHEN [[place] 1 each PO Q4-6H PRN #25 tablet 03/17/18 06/24/18 Unknown Rx 5-325 Tablet] Losartan [Cozaar] 50 mg PO QDAY 03/17/18 06/24/18 05/06/18 History 50mg Spironolactone [Aldactone] 25 mg PO QDAY 03/17/18 06/26/18 06/26/18 06:00 History Active Meds: Active Medications Acetaminophen (Tylenol) 650 mg PO Q4H PRN PRN Reason: Pain MILD(1-3)/Fever >100.5/WONG Acetaminophen/Hydrocodone Bitart ([place] 5/325) 1 each PO Q4-6H PRN PRN Reason: Pain , Severe (7-10) Albuterol (Proventil) 2.5 mg IH Q4HRT PRN PRN Reason: Shortness Of Breath Ergocalciferol (Vitamin D2) unit PO 2XW MAGDALENE Fentanyl (Sublimaze) 50 mcg IV Q5MIN PRN PRN Reason: Pain , Severe (7-10) Stop: 06/26/18 20:00 Cefazolin Sodium (Ancef/Sterile Water 2 Gm/20 Ml) 2 gm in 20 mls @ 80 mls/hr IV PREOP NR; Protocol Stop: 06/26/18 23:59 Sodium Chloride (Nacl 0.9% 1000 Ml) 1,000 mls @ 42 mls/hr IV DIRECT MAGDALENE Last Admin: 06/26/18 09:20 Dose: 42 mls/hr Documented by: Losartan Potassium (Cozaar) 50 mg PO QDAY MAGDALENE Midazolam HCl (Versed) 2 mg IV PREOP NR Stop: 06/26/18 23:59 Miscellaneous Medication (Acidophilus 175 Mg Capsule) 100 mg PO BID MAGDALENE Miscellaneous Medication (Benadryl Cap) 25 mg PO Q12H PRN PRN Reason: Itching Miscellaneous Medication (Folic Acid) 1 mg PO DAILY [facility] Miscellaneous Medication (Lomotil 2.5-0.025 Mg Tablet) 2.5 mg PO Q6H PRN PRN Reason: Diarrhea Miscellaneous Medication (Metoprolol Tartrate) 25 mg PO Q12H [facility] Miscellaneous Medication (Phoslo) 667 mg PO TID [facility] Miscellaneous Medication (Remeron) 15 mg PO QHS [facility] Miscellaneous Medication (Synthroid) 25 mcg PO QAM [facility] Miscellaneous Medication (Thiamine Hcl) 100 mg PO DAILY [facility] Ondansetron HCl (Zofran) 4 mg IV Q8H PRN PRN Reason: Nausea And Vomiting Sodium Chloride (Sodium Chloride Flush Syringe 10 Ml) 10 ml IV BID [facility] Sodium Chloride (Sodium Chloride Flush Syringe 10 Ml) 10 ml IV PRN PRN PRN Reason: LINE FLUSH Spironolactone (Aldactone) 25 mg PO QDAY [facility] Review of Systems Constitutional: no weight loss, no weight gain, no fever, no sweats Ears, nose, mouth and throat: no ear pain, no decreased hearing, no nose pain Cardiovascular: no chest pain, no orthopnea, no palpitations, no rapid/irregular heart beat Respiratory: no cough, no cough with sputum, no hemoptysis, no shortness of breath Gastrointestinal: no abdominal pain, no nausea, no vomiting, no diarrhea, no constipation Genitourinary Male: no dysuria, no hematuria, no discharge, no urinary hesitancy Rectal: no pain, no incontinence, no bleeding Musculoskeletal: no neck pain, no low back pain, no shooting leg pain Integumentary: no rash, no pruritis, no redness, no sores, no jaundice Neurological: no head injury, no transient paralysis, no paralysis, no weakness, no numbness, no tingling Psychiatric: no anxiety, no change in sleep habits, no sleep disturbances, no insomnia, no change in appetite Endocrine: no cold intolerance, no heat intolerance, no polyphagia, no excessive thirst, no polydipsia Hematologic/Lymphatic: no easy bruising, no easy bleeding, no lymphadenopathy Allergic/Immunologic: no urticaria, no allergic rhinitis, no wheezing, no persistent infections, no anaphylaxis, no angioedema Exam - Constitutional Vitals: Temp Pulse Resp BP Pulse Ox 98.5 F 63 16 139/86 100 06/26/18 08:45 06/26/18 08:45 06/26/18 08:45 06/26/18 08:45 06/26/18 08:45 General appearance: Present: mild distress, cachectic - EENT Eyes: Present: PERRL ENT: hearing intact, clear oral mucosa - Neck Neck: Present: supple, normal ROM - Respiratory Respiratory effort: normal Respiratory: bilateral: CTA - Cardiovascular Heart Sounds: Present: S1 & S2. Absent: rub, click - Extremities Extremities: No edema, abnormal (contracture) Peripheral Pulses: within normal limits - Abdominal General gastrointestinal: Present: soft, non-tender, non-distended, normal bowel sounds Male genitourinary: Present: normal - Integumentary Integumentary: Present: clear, warm, dry - Musculoskeletal Musculoskeletal: gait normal, strength equal bilaterally - Psychiatric Psychiatric: appropriate mood/affect, intact judgment & insight - Neurologic Neurologic: CNII-XII intact, moves all extremities, no gait normal Results - Labs Labs: Abnormal lab results 06/26/18 06/26/18 06/26/18 Range/Units 09:36 10:43 11:34 POC Hgb 10.5 L (12-17) POC Hct 31 L (38-51) POC Sodium 132 L (138-146) mmol/L POC BUN 53 H (8-26) mg/dl POC Glucose 237 H 235 H 196 H (70-105) Assessment and Plan - Patient Problems (1) ESRD (end stage renal disease) on dialysis Current Visit: Yes Status: Acute Plan to address problem: Nephrology consulted, dialysis as per renal team. strict I/O, monitor uop q shift, (2) Dialysis AV fistula infection Current Visit: Yes Status: Acute Qualifiers: Encounter type: initial encounter Qualified Code(s): T82.7XXA - Infection and inflammatory reaction due to other cardiac and vascular devices, implants and grafts, initial encounter Plan to address problem: IV antibiotic therapy, CBC, CMP, repeat cbc in AM. (3) Hypothyroidism (acquired) Current Visit: No Status: Chronic Plan to address problem: continue synthroid, (4) DVT prophylaxis Current Visit: No Status: Acute Plan to address problem: SCD to BLE while in bed, prophylactic heparin
[2018-06-26] MEDS ORDERED: VITAMIN D2 PO SCH (13:00)
[2018-06-26] MEDS ORDERED: NON-FORMULARY (Metoprolol Tartrate 25 MG) PO SCH (13:00)
[2018-06-26] MEDS ORDERED: LOMOTIL PO PRN (13:20)
[2018-06-26] MEDS ORDERED: ZOFRAN ONE (13:32)
--- NOTE | 2018-06-26 13:45 | Post Operative Note ---
Pre-op diagnosis: infected thrombosed left arm dialysis graft, ESRD Post-op diagnosis: same Findings: Graft poorly incorporated surrounded and filled with infectious material. Cultures obtained. Severely diseased brachial artery repaired with vein. Radial pulses nonpalpable preop and postop but hand warm. Procedure: Removal of infected hemodialysis graft left arm #2 repair of brachial artery with vein Anesthesia: MAN Surgeon: MARIAN HOLLIS Registered Nurse Fetal: ARETHA LUNDY Estimated blood loss: minimal Pathology: list (infected graft) Specimen disposition: to lab Condition: stable Disposition: floor
[2018-06-26] MEDS: PHOSLO PO SCH ×2 (14:00→20:49)
[2018-06-26] MEDS ORDERED: PHOSLO 667 MG PO SCH (14:00)
[2018-06-26] MEDS ORDERED: MORPHINE IV PRN ×2 (14:02)
[2018-06-26] MEDS ORDERED: NARCAN 0.4 MG/1 ML IV PRN (14:02)
[2018-06-26] MEDS: VITAMIN D2 PO SCH (18:16)
[2018-06-26] MEDS ORDERED: D50W (25GM) Syringe IV PRN (20:14)
[2018-06-26] MEDS: SODIUM CHLORIDE FLUSH SYRINGE 10 ML IV SCH (21:01)
[2018-06-26] MEDS: LOPRESSOR PO SCH (21:01)
[2018-06-26] MEDS: REMERON PO SCH (21:01)
[2018-06-26] MEDS: BENADRYL PO PRN (21:03)
[2018-06-26] MEDS ORDERED: VANCOMYCIN/NS 1 GM/250 ML 1 GM/250 ML BAG IV ONE (21:17)
[2018-06-26 21:49] LABS: Basophils % (Auto) 0.6 % (0.0-1.8); Eosinophils # (Auto) 0.1 K/mm3 (0.0-0.4); Eosinophils % (Auto) 1.9 % (0.0-4.3); Hematocrit 32.7 % (35.5-45.6); Lymphocytes # (Auto) 0.6 K/mm3 (1.2-5.4); Lymphocytes % (Auto) 13.8 % (13.4-35.0); Mean Corpuscular HGB Conc 34 % (32-34); Mean Corpuscular Volume 93 fl (84-94); Monocytes # (Auto) 0.3 K/mm3 (0.0-0.8); Monocytes % (Auto) 7.6 % (0.0-7.3); Red Blood Count 3.53 M/mm3 (3.65-5.03); Red Cell Distribution Width 14.7 % (13.2-15.2)
[2018-06-26 21:50] LABS: Platelet Count 45 K/mm3 (140-440)
[2018-06-26] MEDS ORDERED: ACIDOPHILUS PO SCH (22:00)
[2018-06-26] MEDS ORDERED: VANCOMYCIN 1,250 MG in NACL 0.9% 250ML 250 ML IV ONE (22:00)
[2018-06-26] MEDS ORDERED: REMERON 15 MG PO SCH (22:00)
[2018-06-26] MEDS ORDERED: VANCOMYCIN PHARMACY TO DOSE IV SCH (22:00)
[2018-06-26 22:04] LABS: Albumin 3.6 g/dL (3.9-5); Calcium 8.4 mg/dL (8.4-10.2)
[2018-06-26] MEDS: HumaLOG SUB-Q SCH (22:06)
[2018-06-26] MEDS: LANTUS SUB-Q SCH (22:06)
[2018-06-27] MEDS: SYNTHROID PO SCH (05:30)
[2018-06-27 06:18] LABS: Basophils % (Auto) 0.8 % (0.0-1.8); Eosinophils # (Auto) 0.1 K/mm3 (0.0-0.4); Eosinophils % (Auto) 2.7 % (0.0-4.3); Hematocrit 31.1 % (35.5-45.6); Hemoglobin 10.5 gm/dl (11.8-15.2); Lymphocytes # (Auto) 0.6 K/mm3 (1.2-5.4); Lymphocytes % (Auto) 14.5 % (13.4-35.0); Mean Corpuscular HGB Conc 34 % (32-34); Mean Corpuscular Volume 92 fl (84-94); Monocytes # (Auto) 0.4 K/mm3 (0.0-0.8); Monocytes % (Auto) 9.7 % (0.0-7.3); Red Blood Count 3.37 M/mm3 (3.65-5.03)
[2018-06-27 06:28] LABS: Platelet Count 49 K/mm3 (140-440)
[2018-06-27 06:41] LABS: Albumin 3.3 g/dL (3.9-5); BUN/Creatinine Ratio 8; Blood Urea Nitrogen 60 mg/dL (9-20); Calcium 8.1 mg/dL (8.4-10.2); Hemolysis Index 3
[2018-06-27 06:42] LABS: Alanine Aminotransferase < 5 units/L (7-56)
[2018-06-27] MEDS ORDERED: NON-FORMULARY (Folic Acid 1 MG) PO SCH (10:00)
[2018-06-27] MEDS ORDERED: SYNTHROID 25 MCG PO SCH (10:00)
[2018-06-27] MEDS ORDERED: THIAMINE HCL 100 MG PO SCH (10:00)
--- NOTE | 2018-06-27 10:08 | Consultation ---
History of Present Illness - Reason for Consult Consult date: 06/27/18 end stage renal disease - History of Present Illness Mr. Cates is a 52yo gentleman with ESRD on HD TTS who is admitted to [facility] for an elective vascular procedure and noted to have an infected AVG. Patient is now s/p excision of AVG. Currently, he has no complaints. Past History Past Medical History: diabetes, ESRD, hypertension, other (Debility) Past Surgical History: Other (Vas cath placement, ) Social history: single. denies: smoking, alcohol abuse, prescription drug abuse Family history: hypertension Medications and Allergies Allergies Allergy/AdvReac Type Severity Reaction Status Date / Time No Known Drug Allergies Allergy Unknown Verified 06/24/18 10:40 Home Medications Medication Instructions Recorded Confirmed Last Taken Type Acidophilus 175 mg Capsule 100 mg PO BID 07/08/17 06/26/18 06/26/18 06:00 History Benadryl CAP 25 mg PO Q12H PRN 07/08/17 06/24/18 03/16/18 History Folic Acid 1 mg PO DAILY 07/08/17 06/26/18 06/26/18 06:00 History Lantus VIAL 10 units SQ QHS 07/08/17 06/26/18 06/25/18 21:00 History Lomotil 2.5-0.025 mg Tablet 2.5 mg PO Q6H PRN 07/08/17 06/24/18 03/16/18 History Metoprolol Tartrate 25 mg PO Q12H 07/08/17 06/26/18 06/26/18 06:00 History NovoLOG Flexpen 3 units SQ AC 07/08/17 06/26/18 06/25/18 21:00 History Phoslo 667 mg PO TID 07/08/17 06/26/18 06/25/18 21:00 History Remeron 15 mg PO QHS 07/08/17 06/26/18 06/25/18 21:00 History Synthroid 25 mcg PO QAM 07/08/17 06/26/18 06/26/18 06:00 History Thiamine HCl 100 mg PO DAILY 07/08/17 06/26/18 06/26/18 06:00 History Ergocalciferol [Vitamin D2] 1 cap PO 2XW 03/17/18 06/26/18 06/25/18 06:00 Histor y HYDROcodone/ACETAMINOPHEN [[place] 1 each PO Q4-6H PRN #25 tablet 03/17/18 06/24/18 Unknown Rx 5-325 Tablet] Losartan [Cozaar] 50 mg PO QDAY 03/17/18 06/24/18 05/06/18 History 50mg Spironolactone [Aldactone] 25 mg PO QDAY 03/17/18 06/26/18 06/26/18 06:00 History Active Meds: Active Medications Acetaminophen (Tylenol) 650 mg PO Q4H PRN PRN Reason: Pain MILD(1-3)/Fever >100.5/WONG Acetaminophen/Hydrocodone Bitart ([place] 5/325) 1 each PO Q4H PRN PRN Reason: Pain , Severe (7-10) Albuterol (Proventil) 2.5 mg IH Q4HRT PRN PRN Reason: Shortness Of Breath Calcium Acetate (Phoslo) 667 mg PO TIDWM [facility] Dextrose (D50w (25gm) Syringe) 50 ml IV PRN PRN PRN Reason: Hypoglycemia Diphenhydramine HCl (Benadryl) 25 mg PO Q12H PRN PRN Reason: Itching Last Admin: 06/26/18 21:03 Dose: 25 mg Documented by: Diphenoxylate HCl/Atropine (Lomotil) 1 tab PO Q6H PRN PRN Reason: Diarrhea Ergocalciferol (Vitamin D2) 50,000 unit PO MoTh [facility] Last Admin: 06/26/18 18:16 Dose: 50,000 unit Documented by: Folic Acid (Folvite) 1 mg PO DAILY [facility] Heparin Sodium (Porcine) (Heparin) 5,000 unit SUB-Q Q12HR [facility] Insulin Glargine (Lantus) 10 units SUB-Q QHS [facility] Last Admin: 06/26/18 22:06 Dose: 10 units Documented by: Insulin Human Lispro (Humalog) 0 unit SUB-Q [facility]; Protocol Last Admin: 06/26/18 22:06 Dose: 4 unit Documented by: Levothyroxine Sodium (Synthroid) 25 mcg PO DAILY@0600 [facility] Last Admin: 06/27/18 05:30 Dose: 25 mcg Documented by: Losartan Potassium (Cozaar) 50 mg PO QDAY [facility] Metoprolol Tartrate (Lopressor) 25 mg PO BID [facility] Last Admin: 06/26/18 21:01 Dose: 25 mg Documented by: Mirtazapine (Remeron) 15 mg PO QHS [facility] Last Admin: 06/26/18 21:01 Dose: 15 mg Documented by: Morphine Sulfate (Morphine) 2 mg IV Q4H PRN PRN Reason: Pain, Moderate (4-6) Morphine Sulfate (Morphine) 4 mg IV Q4H PRN PRN Reason: Pain , Severe (7-10) Naloxone HCl (Narcan 0.4 Mg/1 Ml) 0.1 mg IV Q2MIN PRN PRN Reason: Res Rate </= 8 or 02 SAT < 92% Ondansetron HCl (Zofran) 4 mg IV Q8H PRN PRN Reason: Nausea And Vomiting Last Admin: 06/26/18 18:52 Dose: 4 mg Documented by: Sodium Chloride (Sodium Chloride Flush Syringe 10 Ml) 10 ml IV BID [facility] Last Admin: 06/26/18 21:01 Dose: 10 ml Documented by: Sodium Chloride (Sodium Chloride Flush Syringe 10 Ml) 10 ml IV PRN PRN PRN Reason: LINE FLUSH Spironolactone (Aldactone) 25 mg PO QDAY [facility] Thiamine HCl (Vitamin B-1) 100 mg PO QDAY [facility] Review of Systems All systems: negative Exam - Vital Signs Vital signs: Vital Signs Temp Pulse Resp BP Pulse Ox 98.5 F 63 16 139/86 100 06/26/18 07:55 06/26/18 07:55 06/26/18 07:55 06/26/18 07:55 06/26/18 07:55 - General Appearance General appearance: frail EENT: ATNC Respiratory: Clear to Ascultation Heart: regular, S1S2 Gastrointestinal: Present: normal. Absent: tenderness, distended Neurologic: no focal deficit Musculoskeletal: Present: other (left arm bandaged) Results - Lab Results 06/27/18 05:22 06/27/18 05:22 Most recent lab results Calcium 8.1 mg/dL (8.4-10.2) L 06/27/18 05:22 Assessment and Plan Impression * ESRD * Malfunctioning/infected AVG s/p excision --Blood cx: NGTD (06/21 at outpatient dialysis clinic) * Hypertension * Anemia secondary to ESRD * Type II DM * Thrombocytopenia Recommendation * Patient reports that he did not receive dialysis yesterday. Will plan for HD today * Resume TTS schedule tomorrow * UF as tolerated * Surgical cultures collected. Have ordered blood cx * Empiric abx - Vanco/Fortaz for now * Renal diet * Binders with meals * Epogen TIW prn * Adjust diet and meds for ESRD
[2018-06-27] MEDS ORDERED: HEPARIN IV PRN (10:10)
[2018-06-27] MEDS ORDERED: PROCRIT IV PRN (10:10)
[2018-06-27] MEDS ORDERED: NACL 0.9% 100 ML IV PRN (10:10)
[2018-06-27] MEDS: FOLVITE PO SCH (10:19)
[2018-06-27] MEDS: VITAMIN B-1 PO SCH (10:19)
[2018-06-27] MEDS: PHOSLO PO SCH ×3 (10:21→17:52)
[2018-06-27] MEDS: LOPRESSOR PO SCH ×2 (10:29→21:27)
[2018-06-27] MEDS: COZAAR PO SCH (10:29)
[2018-06-27] MEDS: ALDACTONE PO SCH (10:29)
[2018-06-27] MEDS: HumaLOG SUB-Q SCH ×4 (10:30→21:45)
--- NOTE | 2018-06-27 10:48 | Progress Note ---
Assessment and Plan Assessment and plan: ESRD. Nephrology to plan for hemodialysis today. Resume TTS schedule tomorrow Malfunctioning/infected AVG s/p excision. --Blood cx: NGTD (06/21 at outpatient dialysis clinic per Dr. Azevedo). Surgical cultures collected. Await blood cultures. Consider ID consultation. Empiric abx - Vanco/Fortaz for now Hypertension. Continue antihypertensive medications. Anemia secondary to ESRD. Transfuse for hemoglobin less than 7. Type II DM. Continue Accu-Cheks and sliding scale regular insulin Thrombocytopenia. Follow CBC History Interval history: Mr. Cates is a 52yo gentleman with ESRD on HD TTS who is admitted to [facility] for an elective vascular procedure and noted to have an infected AVG. Patient is now s/p excision of AVG. Currently, he has no complaints. Hospitalist Physical - Constitutional Vitals: Temp Pulse Resp BP Pulse Ox 98.0 F 72 18 102/54 99 06/27/18 05:08 06/27/18 05:08 06/27/18 05:08 06/27/18 10:29 06/27/18 05:08 General appearance: Present: no acute distress, cachectic - EENT Eyes: Present: PERRL, EOM intact ENT: hearing intact, clear oral mucosa, dentition normal - Neck Neck: Present: supple, normal ROM - Respiratory Respiratory effort: normal Respiratory: bilateral: CTA - Cardiovascular Rhythm: regular Heart Sounds: Present: S1 & S2. Absent: gallop, rub - Extremities Extremities: no ischemia, No edema, Full ROM - Abdominal General gastrointestinal: soft, non-tender, non-distended, normal bowel sounds - Integumentary Integumentary: Present: clear, warm, dry - Neurologic Neurologic: CNII-XII intact, moves all extremities Results - Labs CBC & Chem 7: 06/27/18 05:22 06/27/18 05:22 Labs: Laboratory Last Values WBC 4.1 K/mm3 (4.5-11.0) L 06/27/18 05:22 RBC 3.37 M/mm3 (3.65-5.03) L 06/27/18 05:22 Hgb 10.5 gm/dl (11.8-15.2) L 06/27/18 05:22 POC Hgb 10.5 (12-17) L 06/26/18 09:36 Hct 31.1 % (35.5-45.6) L 06/27/18 05:22 POC Hct 31 (38-51) L 06/26/18 09:36 MCV 92 fl (84-94) 06/27/18 05:22 MCH 31 pg (28-32) 06/27/18 05:22 MCHC 34 % (32-34) 06/27/18 05:22 RDW 15.0 % (13.2-15.2) 06/27/18 05:22 Plt Count 49 K/mm3 (140-440) L 06/27/18 05:22 Lymph % (Auto) 14.5 % (13.4-35.0) 06/27/18 05:22 [place] % (Auto) 9.7 % (0.0-7.3) H 06/27/18 05:22 Eos % (Auto) 2.7 % (0.0-4.3) 06/27/18 05:22 Baso % (Auto) 0.8 % (0.0-1.8) 06/27/18 05:22 Lymph # 0.6 K/mm3 (1.2-5.4) L 06/27/18 05:22 [place] # 0.4 K/mm3 (0.0-0.8) 06/27/18 05:22 Eos # 0.1 K/mm3 (0.0-0.4) 06/27/18 05:22 Baso # 0.0 K/mm3 (0.0-0.1) 06/27/18 05:22 Seg Neutrophils % 72.3 % (40.0-70.0) H 06/27/18 05:22 Seg Neutrophils # 2.9 K/mm3 (1.8-7.7) 06/27/18 05:22 POC Sodium 132 mmol/L (138-146) L 06/26/18 09:36 POC Potassium 4.7 (3.5-4.9) 06/26/18 09:36 POC Chloride 100 (98-109) 06/26/18 09:36 Sodium 134 mmol/L (137-145) L 06/27/18 05:22 Potassium 4.8 mmol/L (3.6-5.0) 06/27/18 05:22 Chloride 97.0 mmol/L (98-107) L 06/27/18 05:22 Carbon Dioxide 21 mmol/L (22-30) L 06/27/18 05:22 Anion Gap 21 mmol/L 06/27/18 05:22 POC BUN 53 mg/dl (8-26) H 06/26/18 09:36 BUN 60 mg/dL (9-20) H 06/27/18 05:22 Creatinine 7.7 mg/dL (0.8-1.5) H 06/27/18 05:22 Estimated GFR 9 ml/min 06/27/18 05:22 BUN/Creatinine Ratio 8 % 06/27/18 05:22 Glucose 125 mg/dL (75-100) H 06/27/18 05:22 POC Glucose 267 (70-105) H 06/26/18 21:33 Calcium 8.1 mg/dL (8.4-10.2) L 06/27/18 05:22 Total Bilirubin 0.30 mg/dL (0.1-1.2) 06/27/18 05:22 AST 10 units/L (5-40) 06/27/18 05:22 ALT < 5 units/L (7-56) L 06/27/18 05:22 Alkaline Phosphatase 84 units/L (35-129) 06/27/18 05:22 Total Protein 5.9 g/dL (6.3-8.2) L 06/27/18 05:22 Albumin 3.3 g/dL (3.9-5) L 06/27/18 05:22 Albumin/Globulin Ratio 1.3 % 06/27/18 05:22 Active Medications - Current Medications Current Medications: Generic Name Dose Route Start Last Admin Trade Name Freq PRN Reason Stop Dose Admin Acetaminophen 650 mg 06/26/18 12:43 Tylenol PO Q4H PRN Pain MILD(1-3)/Fever >100.5/WONG Acetaminophen/Hydrocodone Bitart 1 each 06/26/18 12:46 [place] 5/325 PO Q4H PRN Pain , Severe (7-10) Albuterol 2.5 mg 06/26/18 12:43 Proventil IH Q4HRT PRN Shortness Of Breath Calcium Acetate 667 mg 06/27/18 08:00 06/27/18 10:21 Phoslo PO Not Given TIDWM [facility] Dextrose 50 ml 06/26/18 20:14 D50w (25gm) Syringe IV PRN PRN Hypoglycemia Diphenhydramine HCl 25 mg 06/26/18 13:19 06/26/18 21:03 Benadryl PO 25 mg Q12H PRN Administration Itching Diphenoxylate HCl/Atropine 1 tab 06/26/18 13:20 Lomotil PO Q6H PRN Diarrhea Epoetin Jf 10,000 unit 06/27/18 10:10 Procrit IV RAJEEV PRN hemodialysis Ergocalciferol 50,000 unit 06/26/18 18:00 06/26/18 18:16 Vitamin D2 PO 50,000 unit MoTh [facility] Administration Folic Acid 1 mg 06/27/18 10:00 06/27/18 10:19 Folvite PO 1 mg DAILY [facility] Administration Heparin Sodium (Porcine) 5,000 unit 06/27/18 22:00 Heparin SUB-Q Q12HR [facility] Heparin Sodium (Porcine) 5,000 unit 06/27/18 10:10 Heparin IV RAJEEV PRN hemodialysis Sodium Chloride 100 mls @ 999 mls/hr 06/27/18 10:10 Nacl 0.9% IV RAJEEV PRN Hypotension Cefepime HCl 1 gm in 100 mls @ 200 mls/hr 06/27/18 11:00 Maxipime/Ns 1 Gm/100 Ml IV Q24H [facility] Protocol Insulin Glargine 10 units 06/26/18 22:00 06/26/18 22:06 Lantus SUB-Q 10 units QHS [facility] Administration Insulin Human Lispro 0 unit 06/26/18 22:00 06/27/18 10:30 Humalog SUB-Q Not Given ACHS [facility] Protocol Levothyroxine Sodium 25 mcg 06/27/18 06:00 06/27/18 05:30 Synthroid PO 25 mcg DAILY@0600 [facility] Administration Losartan Potassium 50 mg 06/27/18 10:00 06/27/18 10:29 Cozaar PO Not Given QDAY [facility] Metoprolol Tartrate 25 mg 06/26/18 22:00 06/27/18 10:29 Lopressor PO Not Given BID [facility] Mirtazapine 15 mg 06/26/18 22:00 06/26/18 21:01 Remeron PO 15 mg QHS [facility] Administration Morphine Sulfate 2 mg 06/26/18 14:02 Morphine IV Q4H PRN Pain, Moderate (4-6) Morphine Sulfate 4 mg 06/26/18 14:02 Morphine IV Q4H PRN Pain , Severe (7-10) Naloxone HCl 0.1 mg 06/26/18 14:02 Narcan 0.4 Mg/1 Ml IV Q2MIN PRN Res Rate </= 8 or 02 SAT < 92% Ondansetron HCl 4 mg 06/26/18 12:43 06/26/18 18:52 Zofran IV 4 mg Q8H PRN Administration Nausea And Vomiting Sodium Chloride 10 ml 06/26/18 22:00 06/26/18 21:01 Sodium Chloride Flush Syringe 10 Ml IV 10 ml BID [facility] Administration Sodium Chloride 10 ml 06/26/18 12:43 Sodium Chloride Flush Syringe 10 Ml IV PRN PRN LINE FLUSH Spironolactone 25 mg 06/27/18 10:00 06/27/18 10:29 Aldactone PO Not Given QDAY [facility] Thiamine HCl 100 mg 06/27/18 10:00 06/27/18 10:19 Vitamin B-1 PO 100 mg QDAY [facility] Administration Nutrition/Malnutrition Assess - Dietary Evaluation Nutrition/Malnutrition Findings: Nutrition Notes Start: 06/27/18 09:42 Freq: Status: Active Protocol: Document 06/27/18 09:42 CP (Rec: 06/27/18 09:54 CP [id number]) Co-Sign 06/27/18 09:42 LP Nutrition Notes Need for Assessment generated from: MD Order,Education,Low BMI Initial or Follow up Assessment Current Diagnosis CKD (stage V CKD),Diabetes, Hypertension Other Pertinent Diagnosis Hypothyroidism, DVT prophylaxis, nicotine dependence Current Diet Renal Diet Labs/Tests Na 134 BUN 60 Cr 7.7 Glu 125 Pertinent Medications Reviewed Height 6 ft 1 in Weight 61.9 kg [place] Body Weight (kg) 83.63 BMI 18.0 Weight Status Underweight Subjective/Other Information MD consult for diet education and RD screen for low BMI. Pt did not want diet education and was unresponsive for the rest of the visit. Noted fat loss and observed uneaten tray beside bed. Percent of energy/protein needs met: 0%/0% Burn Absent Trauma Absent #1 Nutrition Diagnosis Food and nutrition-related knowledge deficit,Limited adherence to nutrition-related recommendations Etiology Pt not wanting diet education As Evidenced by Signs and Symptoms Pt being on hemodialysis Is patient on ventilator? No Is Patient Ambulatory and/or Out of Bed No REE-([facility]-confined to bed) [phone] Calculation Used for Recommendations [facility] Additional Notes Pro: 1.2-1.3g/kg (74-80g/day) Fluid: 1mL/kcal or per MD request Nutrition Intervention Change Diet Order: Continue current or per MD request Goal #1 PO intake to meet at least 75% of energy and protein needs Anticipated Discharge Needs: Renal Diet Follow-Up By: 06/30/18 Additional Comments F/U: PO intakes/need for ONS
[2018-06-27] MEDS: SODIUM CHLORIDE FLUSH SYRINGE 10 ML IV SCH ×2 (11:54→21:49)
[2018-06-27] MEDS: MAXIPIME/NS 1 GM/100 ML 1 GM/100 ML BAG IV SCH (19:41)
[2018-06-27] MEDS: HEPARIN SUB-Q SCH (21:27)
[2018-06-27] MEDS: BENADRYL PO PRN (21:27)
[2018-06-27] MEDS: REMERON PO SCH (21:28)
[2018-06-27] MEDS: LANTUS SUB-Q SCH (21:31)
[2018-06-28] MEDS: SYNTHROID PO SCH (06:01)
[2018-06-28 06:37] LABS: Basophils % (Auto) 0.8 % (0.0-1.8); Eosinophils # (Auto) 0.1 K/mm3 (0.0-0.4); Eosinophils % (Auto) 2.3 % (0.0-4.3); Hematocrit 34.2 % (35.5-45.6); Hemoglobin 11.4 gm/dl (11.8-15.2); Lymphocytes # (Auto) 0.5 K/mm3 (1.2-5.4); Lymphocytes % (Auto) 12.4 % (13.4-35.0); Mean Corpuscular HGB Conc 33 % (32-34); Mean Corpuscular Volume 92 fl (84-94); Monocytes # (Auto) 0.4 K/mm3 (0.0-0.8); Monocytes % (Auto) 10.5 % (0.0-7.3); Red Cell Distribution Width 15.2 % (13.2-15.2)
[2018-06-28 06:38] LABS: Platelet Count 56 K/mm3 (140-440)
[2018-06-28 06:47] LABS: Calcium 8.9 mg/dL (8.4-10.2)
[2018-06-28] MEDS: HumaLOG SUB-Q SCH ×4 (07:30→22:52)
[2018-06-28] MEDS: PHOSLO PO SCH ×3 (08:30→17:39)
[2018-06-28] MEDS: HEPARIN SUB-Q SCH ×2 (10:00→22:50)
[2018-06-28] MEDS ORDERED: NACL 0.9% 100 ML IV PRN (10:24)
--- NOTE | 2018-06-28 10:51 | Progress Note ---
Assessment and Plan Impression * ESRD * Malfunctioning/infected AVG s/p excision --Blood cx: NGTD (06/21 at outpatient dialysis clinic) * Hypertension * Anemia secondary to ESRD * Type II DM * Thrombocytopenia Recommendation * HD q TTS schedule tomorrow * UF as tolerated * Surgical cultures collected. blood cx pending * Empiric abx * Renal diet * Binders with meals * Epogen TIW prn * Adjust diet and meds for ESRD Subjective Date of service: 06/28/18 Principal diagnosis: infected avg Interval history: resting well in bed today Objective - Exam Narrative Exam: General appearance: frail EENT: ATNC Respiratory: Clear to Ascultation Heart: regular, S1S2 Gastrointestinal: Present: normal. Absent: tenderness, distended Neurologic: no focal deficit Musculoskeletal: Present: other (left arm bandaged) - Vital Signs Vital signs: Vital Signs - 12hr 06/27/18 06/28/18 23:17 05:22 Temperature 97.9 F 97.5 F L Pulse Rate 84 71 Respiratory 20 20 Rate Blood Pressure 155/70 156/75 O2 Sat by Pulse 99 100 Oximetry - Lab 06/28/18 05:40 06/28/18 05:40 Most recent lab results Calcium 8.9 mg/dL (8.4-10.2) 06/28/18 05:40 Medications & Allergies - Medications Allergies/Adverse Reactions: Allergies No Known Drug Allergies Allergy (Verified 06/24/18 10:40) Unknown PT STATES THAT HE TOLD [facility] HE WAS ALLERGIC TO MORPHINE BECAUSE HE WAS AFRAID IF HE DIDN'T WRITE DOWN SOMETHING BEING WRONG WITH HIM THAT WOULDN'T LET HIM STAY Home Medications: Home Medications Medication Instructions Recorded Confirmed Last Taken Type Acidophilus 175 mg Capsule 100 mg PO BID 07/08/17 06/26/18 06/26/18 06:00 History Benadryl CAP 25 mg PO Q12H PRN 07/08/17 06/24/18 03/16/18 History Folic Acid 1 mg PO DAILY 07/08/17 06/26/18 06/26/18 06:00 History Lantus VIAL 10 units SQ QHS 07/08/17 06/26/18 06/25/18 21:00 History Lomotil 2.5-0.025 mg Tablet 2.5 mg PO Q6H PRN 07/08/17 06/24/18 03/16/18 History Metoprolol Tartrate 25 mg PO Q12H 07/08/17 06/26/18 06/26/18 06:00 History NovoLOG Flexpen 3 units SQ AC 07/08/17 06/26/18 06/25/18 21:00 History Phoslo 667 mg PO TID 07/08/17 06/26/18 06/25/18 21:00 History Remeron 15 mg PO QHS 07/08/17 06/26/18 06/25/18 21:00 History Synthroid 25 mcg PO QAM 07/08/17 06/26/18 06/26/18 06:00 History Thiamine HCl 100 mg PO DAILY 07/08/17 06/26/18 06/26/18 06:00 History Ergocalciferol [Vitamin D2] 1 cap PO 2XW 03/17/18 06/26/18 06/25/18 06:00 History HYDROcodone/ACETAMINOPHEN [[place] 1 each PO Q4-6H PRN #25 tablet 03/17/18 06/24/18 Unknown Rx 5-325 Tablet] Losartan [Cozaar] 50 mg PO QDAY 03/17/18 06/24/18 05/06/18 History 50mg Spironolactone [Aldactone] 25 mg PO QDAY 03/17/18 06/26/18 06/26/18 06:00 History Active Medications: Generic Name Dose Route Start Last Admin Trade Name Freq PRN Reason Stop Dose Admin Acetaminophen 650 mg 06/26/18 12:43 Tylenol PO Q4H PRN Pain MILD(1-3)/Fever >100.5/WONG Acetaminophen/Hydrocodone Bitart 1 each 06/26/18 12:46 [place] 5/325 PO Q4H PRN Pain , Severe (7-10) Albuterol 2.5 mg 06/26/18 12:43 Proventil IH Q4HRT PRN Shortness Of Breath Calcium Acetate 667 mg 06/27/18 08:00 06/27/18 17:52 Phoslo PO 667 mg TIDWM [facility] Administration Dextrose 50 ml 06/26/18 20:14 06/28/18 07:34 D50w (25gm) Syringe IV 50 ml PRN PRN Administration Hypoglycemia Diphenhydramine HCl 25 mg 06/26/18 13:19 06/27/18 21:27 Benadryl PO 25 mg Q12H PRN Administration Itching Diphenoxylate HCl/Atropine 1 tab 06/26/18 13:20 Lomotil PO Q6H PRN Diarrhea Epoetin Jf 10,000 unit 06/27/18 10:10 Procrit IV RAJEEV PRN hemodialysis Ergocalciferol 50,000 unit 06/26/18 18:00 06/26/18 18:16 Vitamin D2 PO 50,000 unit MoTh [facility] Administration Folic Acid 1 mg 06/27/18 10:00 06/27/18 10:19 Folvite PO 1 mg DAILY [facility] Administration Heparin Sodium (Porcine) 5,000 unit 06/27/18 22:00 06/27/18 21:27 Heparin SUB-Q 5,000 unit Q12HR [facility] Administration Heparin Sodium (Porcine) 5,000 unit 06/27/18 10:10 Heparin IV RAJEEV PRN hemodialysis Sodium Chloride 100 mls @ 999 mls/hr 06/27/18 10:10 Nacl 0.9% IV RAJEEV PRN Hypotension Cefepime HCl 1 gm in 100 mls @ 200 mls/hr 06/27/18 18:00 06/27/18 19:41 Maxipime/Ns 1 Gm/100 Ml IV 200 mls/hr QPM [facility] Administration Protocol Sodium Chloride 100 mls @ 999 mls/hr 06/28/18 10:24 Nacl 0.9% IV RAJEEV PRN Hypotension Insulin Glargine 10 units 06/26/18 22:00 06/27/18 21:31 Lantus SUB-Q 10 units QHS [facility] Administration Insulin Human Lispro 0 unit 06/26/18 22:00 06/27/18 21:45 Humalog SUB-Q 3 unit ACHS [facility] Administration Protocol Levothyroxine Sodium 25 mcg 06/27/18 06:00 06/28/18 06:01 Synthroid PO 25 mcg DAILY@0600 [facility] Administration Losartan Potassium 50 mg 06/27/18 10:00 06/27/18 10:29 Cozaar PO Not Given QDAY [facility] Metoprolol Tartrate 25 mg 06/26/18 22:00 06/27/18 21:27 Lopressor PO 25 mg BID [facility] Administration Mirtazapine 15 mg 06/26/18 22:00 06/27/18 21:28 Remeron PO 15 mg QHS [facility] Administration Morphine Sulfate 2 mg 06/26/18 14:02 Morphine IV Q4H PRN Pain, Moderate (4-6) Morphine Sulfate 4 mg 06/26/18 14:02 Morphine IV Q4H PRN Pain , Severe (7-10) Naloxone HCl 0.1 mg 06/26/18 14:02 Narcan 0.4 Mg/1 Ml IV Q2MIN PRN Res Rate </= 8 or 02 SAT < 92% Ondansetron HCl 4 mg 06/26/18 12:43 06/26/18 18:52 Zofran IV 4 mg Q8H PRN Administration Nausea And Vomiting Sodium Chloride 10 ml 06/26/18 22:00 06/27/18 21:49 Sodium Chloride Flush Syringe 10 Ml IV 10 ml BID [facility] Administration Sodium Chloride 10 ml 06/26/18 12:43 Sodium Chloride Flush Syringe 10 Ml IV PRN PRN LINE FLUSH Spironolactone 25 mg 06/27/18 10:00 06/27/18 10:29 Aldactone PO Not Given QDAY [facility] Thiamine HCl 100 mg 06/27/18 10:00 06/27/18 10:19 Vitamin B-1 PO 100 mg QDAY [facility] Administration
--- NOTE | 2018-06-28 11:00 | Progress Note ---
Assessment and Plan Assessment and plan: Hypoglycemia. Patient received 1 amp D50 this morning. Continue to monitor blood glucose and initiate D5 IV fluids as needed. Hold Lantus ESRD. Nephrology to plan for hemodialysis today. Resume TTS schedule tomorrow Malfunctioning/infected AVG s/p excision. --Blood cx: NGTD (06/21 at outpatient dialysis clinic per Dr. Azevedo). Surgical cultures collected. Await blood cultures. Consider ID consultation. Empiric abx - Vanco/Fortaz for now Hypertension. Continue antihypertensive medications. Anemia secondary to ESRD. Transfuse for hemoglobin less than 7. Type II DM. Continue Accu-Cheks and sliding scale regular insulin, hold Lantus as above. Thrombocytopenia. Follow CBC History Interval history: Mr. Cates is a 52yo gentleman with ESRD on HD TTS who is admitted to [facility] for an elective vascular procedure and noted to have an infected AVG. Patient is now s/p excision of AVG. Currently, he has no complaints. Hospitalist Physical - Constitutional Vitals: Temp Pulse Resp BP Pulse Ox 97.6 F 77 16 164/95 100 06/28/18 09:00 06/28/18 09:20 06/28/18 09:00 06/28/18 09:20 06/28/18 05:22 General appearance: Present: no acute distress, cachectic - EENT Eyes: Present: PERRL, EOM intact ENT: hearing intact, clear oral mucosa, dentition normal - Neck Neck: Present: supple, normal ROM - Respiratory Respiratory effort: normal Respiratory: bilateral: CTA - Cardiovascular Rhythm: regular Heart Sounds: Present: S1 & S2. Absent: gallop, rub - Extremities Extremities: no ischemia, No edema, Full ROM - Abdominal General gastrointestinal: soft, non-tender, non-distended, normal bowel sounds - Integumentary Integumentary: Present: clear, warm, dry - Neurologic Neurologic: CNII-XII intact, moves all extremities Results - Labs CBC & Chem 7: 06/28/18 05:40 06/28/18 05:40 Labs: Laboratory Last Values WBC 3.8 K/mm3 (4.5-11.0) L 06/28/18 05:40 RBC 3.70 M/mm3 (3.65-5.03) 06/28/18 05:40 Hgb 11.4 gm/dl (11.8-15.2) L 06/28/18 05:40 POC Hgb 10.5 (12-17) L 06/26/18 09:36 Hct 34.2 % (35.5-45.6) L 06/28/18 05:40 POC Hct 31 (38-51) L 06/26/18 09:36 MCV 92 fl (84-94) 06/28/18 05:40 MCH 31 pg (28-32) 06/28/18 05:40 MCHC 33 % (32-34) 06/28/18 05:40 RDW 15.2 % (13.2-15.2) 06/28/18 05:40 Plt Count 56 K/mm3 (140-440) L 06/28/18 05:40 Lymph % (Auto) 12.4 % (13.4-35.0) L 06/28/18 05:40 [place] % (Auto) 10.5 % (0.0-7.3) H 06/28/18 05:40 Eos % (Auto) 2.3 % (0.0-4.3) 06/28/18 05:40 Baso % (Auto) 0.8 % (0.0-1.8) 06/28/18 05:40 Lymph # 0.5 K/mm3 (1.2-5.4) L 06/28/18 05:40 [place] # 0.4 K/mm3 (0.0-0.8) 06/28/18 05:40 Eos # 0.1 K/mm3 (0.0-0.4) 06/28/18 05:40 Baso # 0.0 K/mm3 (0.0-0.1) 06/28/18 05:40 Seg Neutrophils % 74.0 % (40.0-70.0) H 06/28/18 05:40 Seg Neutrophils # 2.8 K/mm3 (1.8-7.7) 06/28/18 05:40 POC Sodium 132 mmol/L (138-146) L 06/26/18 09:36 POC Potassium 4.7 (3.5-4.9) 06/26/18 09:36 POC Chloride 100 (98-109) 06/26/18 09:36 Sodium 139 mmol/L (137-145) 06/28/18 05:40 Potassium 3.4 mmol/L (3.6-5.0) L D 06/28/18 05:40 Chloride 98.8 mmol/L (98-107) 06/28/18 05:40 Carbon Dioxide 27 mmol/L (22-30) 06/28/18 05:40 Anion Gap 17 mmol/L 06/28/18 05:40 POC BUN 53 mg/dl (8-26) H 06/26/18 09:36 BUN 24 mg/dL (9-20) H 06/28/18 05:40 Creatinine 4.8 mg/dL (0.8-1.5) H 06/28/18 05:40 Estimated GFR 16 ml/min 06/28/18 05:40 BUN/Creatinine Ratio 5 % 06/28/18 05:40 Glucose 30 mg/dL (75-100) L* 06/28/18 05:40 POC Glucose 136 (70-105) H 06/27/18 11:38 Calcium 8.9 mg/dL (8.4-10.2) 06/28/18 05:40 Total Bilirubin 0.30 mg/dL (0.1-1.2) 06/27/18 05:22 AST 10 units/L (5-40) 06/27/18 05:22 ALT < 5 units/L (7-56) L 06/27/18 05:22 Alkaline Phosphatase 84 units/L (35-129) 06/27/18 05:22 Total Protein 5.9 g/dL (6.3-8.2) L 06/27/18 05:22 Albumin 3.3 g/dL (3.9-5) L 06/27/18 05:22 Albumin/Globulin Ratio 1.3 % 06/27/18 05:22 Random Vancomycin 15 ug/mL (0-40.0) 06/28/18 05:40 Active Medications - Current Medications Current Medications: Generic Name Dose Route Start Last Admin Trade Name Freq PRN Reason Stop Dose Admin Acetaminophen 650 mg 06/26/18 12:43 Tylenol PO Q4H PRN Pain MILD(1-3)/Fever >100.5/WONG Acetaminophen/Hydrocodone Bitart 1 each 06/26/18 12:46 [place] 5/325 PO Q4H PRN Pain , Severe (7-10) Albuterol 2.5 mg 06/26/18 12:43 Proventil IH Q4HRT PRN Shortness Of Breath Calcium Acetate 667 mg 06/27/18 08:00 06/27/18 17:52 Phoslo PO 667 mg TIDWM MAGDALENE Administration Dextrose 50 ml 06/26/18 20:14 06/28/18 07:34 D50w (25gm) Syringe IV 50 ml PRN PRN Administration Hypoglycemia Diphenhydramine HCl 25 mg 06/26/18 13:19 06/27/18 21:27 Benadryl PO 25 mg Q12H PRN Administration Itching Diphenoxylate HCl/Atropine 1 tab 06/26/18 13:20 Lomotil PO Q6H PRN Diarrhea Epoetin Jf 10,000 unit 06/27/18 10:10 Procrit IV RAJEEV PRN hemodialysis Ergocalciferol 50,000 unit 06/26/18 18:00 06/26/18 18:16 Vitamin D2 PO 50,000 unit MoTh MAGDALENE Administration Folic Acid 1 mg 06/27/18 10:00 06/27/18 10:19 Folvite PO 1 mg DAILY MAGDALENE Administration Heparin Sodium (Porcine) 5,000 unit 06/27/18 22:00 06/27/18 21:27 Heparin SUB-Q 5,000 unit Q12HR MAGDALENE Administration Heparin Sodium (Porcine) 5,000 unit 06/27/18 10:10 Heparin IV RAJEEV PRN hemodialysis Sodium Chloride 100 mls @ 999 mls/hr 06/27/18 10:10 Nacl 0.9% IV RAJEEV PRN Hypotension Cefepime HCl 1 gm in 100 mls @ 200 mls/hr 06/27/18 18:00 06/27/18 19:41 Maxipime/Ns 1 Gm/100 Ml IV 200 mls/hr QPM MAGDALENE Administration Protocol Sodium Chloride 100 mls @ 999 mls/hr 06/28/18 10:24 Nacl 0.9% IV RAJEEV PRN Hypotension Insulin Glargine 10 units 06/26/18 22:00 06/27/18 21:31 Lantus SUB-Q 10 units QHS MAGDALENE Administration Insulin Human Lispro 0 unit 06/26/18 22:00 06/27/18 21:45 Humalog SUB-Q 3 unit ACHS MAGDALENE Administration Protocol Levothyroxine Sodium 25 mcg 06/27/18 06:00 06/28/18 06:01 Synthroid PO 25 mcg DAILY@0600 MAGDALENE Administration Losartan Potassium 50 mg 06/27/18 10:00 06/27/18 10:29 Cozaar PO Not Given QDAY [facility] Metoprolol Tartrate 25 mg 06/26/18 22:00 06/27/18 21:27 Lopressor PO 25 mg BID MAGDALENE Administration Mirtazapine 15 mg 06/26/18 22:00 06/27/18 21:28 Remeron PO 15 mg QHS MAGDALENE Administration Morphine Sulfate 2 mg 06/26/18 14:02 Morphine IV Q4H PRN Pain, Moderate (4-6) Morphine Sulfate 4 mg 06/26/18 14:02 Morphine IV Q4H PRN Pain , Severe (7-10) Naloxone HCl 0.1 mg 06/26/18 14:02 Narcan 0.4 Mg/1 Ml IV Q2MIN PRN Res Rate </= 8 or 02 SAT < 92% Ondansetron HCl 4 mg 06/26/18 12:43 06/26/18 18:52 Zofran IV 4 mg Q8H PRN Administration Nausea And Vomiting Sodium Chloride 10 ml 06/26/18 22:00 06/27/18 21:49 Sodium Chloride Flush Syringe 10 Ml IV 10 ml BID MAGDALENE Administration Sodium Chloride 10 ml 06/26/18 12:43 Sodium Chloride Flush Syringe 10 Ml IV PRN PRN LINE FLUSH Spironolactone 25 mg 06/27/18 10:00 06/27/18 10:29 Aldactone PO Not Given QDAY [facility] Thiamine HCl 100 mg 06/27/18 10:00 06/27/18 10:19 Vitamin B-1 PO 100 mg QDAY MAGDALENE Administration Nutrition/Malnutrition Assess - Dietary Evaluation Nutrition/Malnutrition Findings: Nutrition Notes Start: 06/27/18 09:42 Freq: Status: Active Protocol: Document 06/27/18 09:42 CP (Rec: 06/27/18 09:54 CP [id number]) Co-Sign 06/27/18 09:42 LP Nutrition Notes Need for Assessment generated from: MD Order,Education,Low BMI Initial or Follow up Assessment Current Diagnosis CKD (stage V CKD),Diabetes, Hypertension Other Pertinent Diagnosis Hypothyroidism, DVT prophylaxis, nicotine dependence Current Diet Renal Diet Labs/Tests Na 134 BUN 60 Cr 7.7 Glu 125 Pertinent Medications Reviewed Height 6 ft 1 in Weight 61.9 kg [place] Body Weight (kg) 83.63 BMI 18.0 Weight Status Underweight Subjective/Other Information MD consult for diet education and RD screen for low BMI. Pt did not want diet education and was unresponsive for the rest of the visit. Noted fat loss and observed uneaten tray beside bed. Percent of energy/protein needs met: 0%/0% Burn Absent Trauma Absent #1 Nutrition Diagnosis Limited adherence to nutrition -related recommendations Etiology Pt not wanting diet education As Evidenced by Signs and Symptoms Pt being on hemodialysis Is patient on ventilator? No Is Patient Ambulatory and/or Out of Bed No REE-([facility]-confined to bed) 1843.512 Calculation Used for Recommendations [facility] Additional Notes Pro: 1.2-1.3g/kg (74-80g/day) Fluid: 1mL/kcal or per MD request Nutrition Intervention Change Diet Order: Continue current or per MD request Add Supplement/Snack (indicate name/kcal Nepro daily /protein ) Provides kCal: 425 Provides Protein (gm) 19 Goal #1 PO intake to meet at least 75% of energy and protein needs Anticipated Discharge Needs: Renal Diet Follow-Up By: 06/30/18 Additional Comments F/U: PO/ONS intakes
[2018-06-28] MEDS: LOPRESSOR PO SCH ×2 (14:22→22:50)
[2018-06-28] MEDS: FOLVITE PO SCH (14:22)
[2018-06-28] MEDS: COZAAR PO SCH (14:22)
[2018-06-28] MEDS: ALDACTONE PO SCH (14:23)
[2018-06-28] MEDS: VITAMIN B-1 PO SCH (14:23)
[2018-06-28] MEDS: SODIUM CHLORIDE FLUSH SYRINGE 10 ML IV SCH ×2 (14:24→22:51)
[2018-06-28] MEDS: MAXIPIME/NS 1 GM/100 ML 1 GM/100 ML BAG IV SCH (17:38)
[2018-06-28] MEDS ORDERED: VANCOMYCIN/NS 1 GM/250 ML 1 GM/250 ML BAG IV ONE (18:00)
[2018-06-28] MEDS: REMERON PO SCH (22:50)
[2018-06-29] MEDS: SYNTHROID PO SCH (06:26)
--- NOTE | 2018-06-29 08:33 | Progress Note ---
Assessment and Plan Assessment and plan: Hypoglycemia. Resolved. Continue to hold Lantus ESRD. Nephrology to plan for hemodialysis today. Resume TTS schedule tomorrow Malfunctioning/infected AVG s/p excision. --Blood cx: NGTD (06/21 at outpatient dialysis clinic per Dr. Azevedo). Surgical cultures and blood cultures remain negative. Continue Empiric abx - Vanco/Fortaz for now Hypertension. Continue antihypertensive medications. Anemia secondary to ESRD. Transfuse for hemoglobin less than 7. Type II DM. Continue Accu-Cheks and sliding scale regular insulin, hold Lantus as above. Thrombocytopenia. Follow CBC History Interval history: Mr. Cates is a 52yo gentleman with ESRD on HD TTS who is admitted to [facility] for an elective vascular procedure and noted to have an infected AVG. Patient is now s/p excision of AVG. Currently, he has no complaints. Hospitalist Physical - Constitutional Vitals: Temp Pulse Resp BP Pulse Ox 98.4 F 79 20 115/58 99 06/29/18 05:58 06/29/18 07:46 06/29/18 07:46 06/29/18 05:58 06/29/18 05:58 General appearance: Present: no acute distress, cachectic - EENT Eyes: Present: PERRL, EOM intact ENT: hearing intact, clear oral mucosa, dentition normal - Neck Neck: Present: supple, normal ROM - Respiratory Respiratory effort: normal Respiratory: bilateral: CTA - Cardiovascular Rhythm: regular Heart Sounds: Present: S1 & S2. Absent: gallop, rub - Extremities Extremities: no ischemia, No edema, Full ROM - Abdominal General gastrointestinal: soft, non-tender, non-distended, normal bowel sounds - Integumentary Integumentary: Present: clear, warm, dry - Neurologic Neurologic: CNII-XII intact, moves all extremities Results - Labs CBC & Chem 7: 06/28/18 05:40 06/28/18 05:40 Labs: Laboratory Last Values WBC 3.8 K/mm3 (4.5-11.0) L 06/28/18 05:40 RBC 3.70 M/mm3 (3.65-5.03) 06/28/18 05:40 Hgb 11.4 gm/dl (11.8-15.2) L 06/28/18 05:40 POC Hgb 10.5 (12-17) L 06/26/18 09:36 Hct 34.2 % (35.5-45.6) L 06/28/18 05:40 POC Hct 31 (38-51) L 06/26/18 09:36 MCV 92 fl (84-94) 06/28/18 05:40 MCH 31 pg (28-32) 06/28/18 05:40 MCHC 33 % (32-34) 06/28/18 05:40 RDW 15.2 % (13.2-15.2) 06/28/18 05:40 Plt Count 56 K/mm3 (140-440) L 06/28/18 05:40 Lymph % (Auto) 12.4 % (13.4-35.0) L 06/28/18 05:40 [place] % (Auto) 10.5 % (0.0-7.3) H 06/28/18 05:40 Eos % (Auto) 2.3 % (0.0-4.3) 06/28/18 05:40 Baso % (Auto) 0.8 % (0.0-1.8) 06/28/18 05:40 Lymph # 0.5 K/mm3 (1.2-5.4) L 06/28/18 05:40 [place] # 0.4 K/mm3 (0.0-0.8) 06/28/18 05:40 Eos # 0.1 K/mm3 (0.0-0.4) 06/28/18 05:40 Baso # 0.0 K/mm3 (0.0-0.1) 06/28/18 05:40 Seg Neutrophils % 74.0 % (40.0-70.0) H 06/28/18 05:40 Seg Neutrophils # 2.8 K/mm3 (1.8-7.7) 06/28/18 05:40 POC Sodium 132 mmol/L (138-146) L 06/26/18 09:36 POC Potassium 4.7 (3.5-4.9) 06/26/18 09:36 POC Chloride 100 (98-109) 06/26/18 09:36 Sodium 139 mmol/L (137-145) 06/28/18 05:40 Potassium 3.4 mmol/L (3.6-5.0) L D 04/20/19 05:40 Chloride 98.8 mmol/L (98-107) 06/28/18 05:40 Carbon Dioxide 27 mmol/L (22-30) 06/28/18 05:40 Anion Gap 17 mmol/L 06/28/18 05:40 POC BUN 53 mg/dl (8-26) H 06/26/18 09:36 BUN 24 mg/dL (9-20) H 06/28/18 05:40 Creatinine 4.8 mg/dL (0.8-1.5) H 06/28/18 05:40 Estimated GFR 16 ml/min 06/28/18 05:40 BUN/Creatinine Ratio 5 % 06/28/18 05:40 Glucose 30 mg/dL (75-100) L* 06/28/18 05:40 POC Glucose 133 (70-105) H 06/29/18 07:49 Calcium 8.9 mg/dL (8.4-10.2) 06/28/18 05:40 Total Bilirubin 0.30 mg/dL (0.1-1.2) 06/27/18 05:22 AST 10 units/L (5-40) 06/27/18 05:22 ALT < 5 units/L (7-56) L 06/27/18 05:22 Alkaline Phosphatase 84 units/L (35-129) 06/27/18 05:22 Total Protein 5.9 g/dL (6.3-8.2) L 06/27/18 05:22 Albumin 3.3 g/dL (3.9-5) L 06/27/18 05:22 Albumin/Globulin Ratio 1.3 % 06/27/18 05:22 Random Vancomycin 15 ug/mL (0-40.0) 06/28/18 05:40 Active Medications - Current Medications Current Medications: Generic Name Dose Route Start Last Admin Trade Name Freq PRN Reason Stop Dose Admin Acetaminophen 650 mg 06/26/18 12:43 Tylenol PO Q4H PRN Pain MILD(1-3)/Fever >100.5/WONG Acetaminophen/Hydrocodone Bitart 1 each 06/26/18 12:46 [place] 5/325 PO Q4H PRN Pain , Severe (7-10) Albuterol 2.5 mg 06/26/18 12:43 Proventil IH Q4HRT PRN Shortness Of Breath Calcium Acetate 667 mg 06/27/18 08:00 06/28/18 17:39 Phoslo PO 667 mg TIDWM MAGDALENE Administration Dextrose 50 ml 06/26/18 20:14 06/28/18 07:34 D50w (25gm) Syringe IV 50 ml PRN PRN Administration Hypoglycemia Diphenhydramine HCl 25 mg 06/26/18 13:19 06/27/18 21:27 Benadryl PO 25 mg Q12H PRN Administration Itching Diphenoxylate HCl/Atropine 1 tab 06/26/18 13:20 Lomotil PO Q6H PRN Diarrhea Epoetin Jf 10,000 unit 06/27/18 10:10 Procrit IV RAJEEV PRN hemodialysis Ergocalciferol 50,000 unit 06/26/18 18:00 06/26/18 18:16 Vitamin D2 PO 50,000 unit MoTh MAGDALENE Administration Folic Acid 1 mg 06/27/18 10:00 06/28/18 14:22 Folvite PO 1 mg DAILY MAGDALENE Administration Heparin Sodium (Porcine) 5,000 unit 06/27/18 22:00 06/28/18 22:50 Heparin SUB-Q 5,000 unit Q12HR MAGDALENE Administration Heparin Sodium (Porcine) 5,000 unit 06/27/18 10:10 Heparin IV RAJEEV PRN hemodialysis Sodium Chloride 100 mls @ 999 mls/hr 06/27/18 10:10 Nacl 0.9% IV RAJEEV PRN Hypotension Cefepime HCl 1 gm in 100 mls @ 200 mls/hr 06/27/18 18:00 06/28/18 17:38 Maxipime/Ns 1 Gm/100 Ml IV 200 mls/hr QPM MAGDALENE Administration Protocol Sodium Chloride 100 mls @ 999 mls/hr 06/28/18 10:24 Nacl 0.9% IV RAJEEV PRN Hypotension Insulin Human Lispro 0 unit 06/26/18 22:00 06/28/18 22:52 Humalog SUB-Q Not Given ACHS [facility] Protocol Levothyroxine Sodium 25 mcg 06/27/18 06:00 06/29/18 06:26 Synthroid PO 25 mcg DAILY@0600 MAGDALENE Administration Losartan Potassium 50 mg 06/27/18 10:00 06/28/18 14:22 Cozaar PO 50 mg QDAY MAGDALENE Administration Metoprolol Tartrate 25 mg 06/26/18 22:00 06/28/18 22:50 Lopressor PO 25 mg BID MAGDALENE Administration Mirtazapine 15 mg 06/26/18 22:00 06/28/18 22:50 Remeron PO 15 mg QHS MAGDALENE Administration Morphine Sulfate 2 mg 06/26/18 14:02 Morphine IV Q4H PRN Pain, Moderate (4-6) Morphine Sulfate 4 mg 06/26/18 14:02 Morphine IV Q4H PRN Pain , Severe (7-10) Naloxone HCl 0.1 mg 06/26/18 14:02 Narcan 0.4 Mg/1 Ml IV Q2MIN PRN Res Rate </= 8 or 02 SAT < 92% Ondansetron HCl 4 mg 06/26/18 12:43 06/26/18 18:52 Zofran IV 4 mg Q8H PRN Administration Nausea And Vomiting Sodium Chloride 10 ml 06/26/18 22:00 06/28/18 22:51 Sodium Chloride Flush Syringe 10 Ml IV 10 ml BID MAGDALENE Administration Sodium Chloride 10 ml 06/26/18 12:43 Sodium Chloride Flush Syringe 10 Ml IV PRN PRN LINE FLUSH Spironolactone 25 mg 06/27/18 10:00 06/28/18 14:23 Aldactone PO 25 mg QDAY MAGDALENE Administration Thiamine HCl 100 mg 06/27/18 10:00 06/28/18 14:23 Vitamin B-1 PO 100 mg QDAY MAGDALENE Administration Nutrition/Malnutrition Assess - Dietary Evaluation Nutrition/Malnutrition Findings: Nutrition Notes Start: 06/27/18 09:42 Freq: Status: Active Protocol: Document 06/27/18 09:42 CP (Rec: 06/27/18 09:54 CP [id number]) Co-Sign 06/27/18 09:42 LP Nutrition Notes Need for Assessment generated from: MD Order,Education,Low BMI Initial or Follow up Assessment Current Diagnosis CKD (stage V CKD),Diabetes, Hypertension Other Pertinent Diagnosis Hypothyroidism, DVT prophylaxis, nicotine dependence Current Diet Renal Diet Labs/Tests Na 134 BUN 60 Cr 7.7 Glu 125 Pertinent Medications Reviewed Height 6 ft 1 in Weight 61.9 kg [place] Body Weight (kg) 83.63 BMI 18.0 Weight Status Underweight Subjective/Other Information MD consult for diet education and RD screen for low BMI. Pt did not want diet education and was unresponsive for the rest of the visit. Noted fat loss and observed uneaten tray beside bed. Percent of energy/protein needs met: 0%/0% Burn Absent Trauma Absent #1 Nutrition Diagnosis Limited adherence to nutrition -related recommendations Etiology Pt not wanting diet education As Evidenced by Signs and Symptoms Pt being on hemodialysis Is patient on ventilator? No Is Patient Ambulatory and/or Out of Bed No REE-([facility]-confined to bed) 1843.512 Calculation Used for Recommendations [facility] Additional Notes Pro: 1.2-1.3g/kg (74-80g/day) Fluid: 1mL/kcal or per MD request Nutrition Intervention Change Diet Order: Continue current or per MD request Add Supplement/Snack (indicate name/kcal Nepro daily /protein ) Provides kCal: 425 Provides Protein (gm) 19 Goal #1 PO intake to meet at least 75% of energy and protein needs Anticipated Discharge Needs: Renal Diet Follow-Up By: 06/30/18 Additional Comments F/U: PO/ONS intakes
[2018-06-29] MEDS: PHOSLO PO SCH ×3 (09:40→18:50)
[2018-06-29] MEDS: HumaLOG SUB-Q SCH ×4 (09:41→22:13)
[2018-06-29] MEDS: HEPARIN SUB-Q SCH ×2 (11:11→21:57)
[2018-06-29] MEDS: VITAMIN B-1 PO SCH (11:12)
[2018-06-29] MEDS: FOLVITE PO SCH (11:13)
[2018-06-29] MEDS: ALDACTONE PO SCH (12:44)
[2018-06-29] MEDS: COZAAR PO SCH (12:45)
[2018-06-29] MEDS: LOPRESSOR PO SCH ×2 (12:46→21:58)
--- NOTE | 2018-06-29 13:59 | Progress Note ---
Assessment and Plan Impression * ESRD * Malfunctioning/infected AVG s/p excision --Blood cx: NGTD (06/21 at outpatient dialysis clinic) * Hypertension * Anemia secondary to ESRD * Type II DM * Thrombocytopenia Recommendation * HD q TTS schedule * UF as tolerated * s/p excision of av graft * Surgical cultures collected. blood cx NGTD * Empiric abx * Renal diet * Binders with meals * Epogen TIW prn * Adjust diet and meds for ESRD Subjective Date of service: 06/29/18 Principal diagnosis: infected avg Interval history: resting well in bed today Objective - Exam Narrative Exam: General appearance: frail EENT: ATNC Respiratory: Clear to Ascultation Heart: regular, S1S2 Gastrointestinal: Present: normal. Absent: tenderness, distended Neurologic: no focal deficit Musculoskeletal: Present: other (left arm bandaged) - Vital Signs Vital signs: Vital Signs - 12hr 06/29/18 06/29/18 06/29/18 05:58 07:46 11:06 Temperature 98.4 F Pulse Rate 72 84 Pulse Rate [ 79 From Monitor] Respiratory 17 20 Rate Blood Pressure 115/58 104/67 O2 Sat by Pulse 99 99 Oximetry 06/29/18 06/29/18 06/29/18 12:37 12:44 12:45 Temperature Pulse Rate 79 78 78 Pulse Rate [ From Monitor] Respiratory Rate Blood Pressure 141/80 141/80 141/80 O2 Sat by Pulse 99 Oximetry 06/29/18 12:46 Temperature Pulse Rate 78 Pulse Rate [ From Monitor] Respiratory Rate Blood Pressure 141/80 O2 Sat by Pulse Oximetry - Lab 06/28/18 05:40 06/28/18 05:40 Most recent lab results Calcium 8.9 mg/dL (8.4-10.2) 06/28/18 05:40 Medications & Allergies - Medications Allergies/Adverse Reactions: Allergies No Known Drug Allergies Allergy (Verified 06/24/18 10:40) Unknown PT STATES THAT HE TOLD JAIL HE WAS ALLERGIC TO MORPHINE BECAUSE HE WAS AFRAID IF HE DIDN'T WRITE DOWN SOMETHING BEING WRONG WITH HIM THAT WOULDN'T LET HIM STAY Home Medications: Home Medications Medication Instructions Recorded Confirmed Last Taken Type Acidophilus 175 mg Capsule 100 mg PO BID 07/08/17 06/26/18 06/26/18 06:00 History Benadryl CAP 25 mg PO Q12H PRN 07/08/17 06/24/18 03/16/18 History Folic Acid 1 mg PO DAILY 07/08/17 06/26/18 06/26/18 06:00 History Lantus VIAL 10 units SQ QHS 07/08/17 06/26/18 06/25/18 21:00 History Lomotil 2.5-0.025 mg Tablet 2.5 mg PO Q6H PRN 07/08/17 06/24/18 03/16/18 History Metoprolol Tartrate 25 mg PO Q12H 07/08/17 06/26/18 06/26/18 06:00 History NovoLOG Flexpen 3 units SQ AC 07/08/17 06/26/18 06/25/18 21:00 History Phoslo 667 mg PO TID 07/08/17 06/26/18 06/25/18 21:00 History Remeron 15 mg PO QHS 07/08/17 06/26/18 06/25/18 21:00 History Synthroid 25 mcg PO QAM 07/08/17 06/26/18 06/26/18 06:00 History Thiamine HCl 100 mg PO DAILY 07/08/17 06/26/18 06/26/18 06:00 History Ergocalciferol [Vitamin D2] 1 cap PO 2XW 03/17/18 06/26/18 06/25/18 06:00 History HYDROcodone/ACETAMINOPHEN [[place] 1 each PO Q4-6H PRN #25 tablet 03/17/18 06/24/18 Unknown Rx 5-325 Tablet] Losartan [Cozaar] 50 mg PO QDAY 03/17/18 06/24/18 05/06/18 History 50mg Spironolactone [Aldactone] 25 mg PO QDAY 03/17/18 06/26/18 06/26/18 06:00 History Active Medications: Generic Name Dose Route Start Last Admin Trade Name Freq PRN Reason Stop Dose Admin Acetaminophen 650 mg 06/26/18 12:43 Tylenol PO Q4H PRN Pain MILD(1-3)/Fever >100.5/WONG Acetaminophen/Hydrocodone Bitart 1 each 06/26/18 12:46 [place] 5/325 PO Q4H PRN Pain , Severe (7-10) Albuterol 2.5 mg 06/26/18 12:43 Proventil IH Q4HRT PRN Shortness Of Breath Calcium Acetate 667 mg 06/27/18 08:00 06/29/18 12:34 Phoslo PO 667 mg TIDWM MAGDALENE Administration Dextrose 50 ml 06/26/18 20:14 06/28/18 07:34 D50w (25gm) Syringe IV 50 ml PRN PRN Administration Hypoglycemia Diphenhydramine HCl 25 mg 06/26/18 13:19 06/27/18 21:27 Benadryl PO 25 mg Q12H PRN Administration Itching Diphenoxylate HCl/Atropine 1 tab 06/26/18 13:20 Lomotil PO Q6H PRN Diarrhea Epoetin Jf 10,000 unit 06/27/18 10:10 Procrit IV RAJEEV PRN hemodialysis Ergocalciferol 50,000 unit 06/26/18 18:00 06/26/18 18:16 Vitamin D2 PO 50,000 unit MoTh MAGDALENE Administration Folic Acid 1 mg 06/27/18 10:00 06/29/18 11:13 Folvite PO 1 mg DAILY MAGDALENE Administration Heparin Sodium (Porcine) 5,000 unit 06/27/18 22:00 06/29/18 11:11 Heparin SUB-Q 5,000 unit Q12HR MAGDALENE Administration Heparin Sodium (Porcine) 5,000 unit 06/27/18 10:10 Heparin IV RAJEEV PRN hemodialysis Sodium Chloride 100 mls @ 999 mls/hr 06/27/18 10:10 Nacl 0.9% IV RAJEEV PRN Hypotension Cefepime HCl 1 gm in 100 mls @ 200 mls/hr 06/27/18 18:00 06/28/18 17:38 Maxipime/Ns 1 Gm/100 Ml IV 200 mls/hr QPM MAGDALENE Administration Protocol Sodium Chloride 100 mls @ 999 mls/hr 06/28/18 10:24 Nacl 0.9% IV RAJEEV PRN Hypotension Insulin Human Lispro 0 unit 06/26/18 22:00 06/29/18 12:31 Humalog SUB-Q 8 unit ACHS MAGDALENE Administration Protocol Levothyroxine Sodium 25 mcg 06/27/18 06:00 06/29/18 06:26 Synthroid PO 25 mcg DAILY@0600 MAGDALENE Administration Losartan Potassium 50 mg 06/27/18 10:00 06/29/18 12:45 Cozaar PO 50 mg QDAY MAGDALENE Administration Metoprolol Tartrate 25 mg 06/26/18 22:00 06/29/18 12:46 Lopressor PO 25 mg BID MAGDALENE Administration Mirtazapine 15 mg 06/26/18 22:00 06/28/18 22:50 Remeron PO 15 mg QHS MAGDALENE Administration Morphine Sulfate 2 mg 06/26/18 14:02 Morphine IV Q4H PRN Pain, Moderate (4-6) Morphine Sulfate 4 mg 06/26/18 14:02 Morphine IV Q4H PRN Pain , Severe (7-10) Naloxone HCl 0.1 mg 06/26/18 14:02 Narcan 0.4 Mg/1 Ml IV Q2MIN PRN Res Rate </= 8 or 02 SAT < 92% Ondansetron HCl 4 mg 06/26/18 12:43 06/26/18 18:52 Zofran IV 4 mg Q8H PRN Administration Nausea And Vomiting Sodium Chloride 10 ml 06/26/18 22:00 06/28/18 22:51 Sodium Chloride Flush Syringe 10 Ml IV 10 ml BID MAGDALENE Administration Sodium Chloride 10 ml 06/26/18 12:43 06/29/18 12:34 Sodium Chloride Flush Syringe 10 Ml IV 10 ml PRN PRN Administration LINE FLUSH Spironolactone 25 mg 06/27/18 10:00 06/29/18 12:44 Aldactone PO 25 mg QDAY MAGDALENE Administration Thiamine HCl 100 mg 06/27/18 10:00 06/29/18 11:12 Vitamin B-1 PO 100 mg QDAY MAGDALENE Administration
[2018-06-29] MEDS: MAXIPIME/NS 1 GM/100 ML 1 GM/100 ML BAG IV SCH (18:51)
[2018-06-29] MEDS: SODIUM CHLORIDE FLUSH SYRINGE 10 ML IV SCH ×2 (18:57→21:59)
[2018-06-29] MEDS: REMERON PO SCH (21:59)
[2018-06-30] MEDS: SYNTHROID PO SCH (05:29)
[2018-06-30 06:03] LABS: Eosinophils # (Auto) 0.2 K/mm3 (0.0-0.4); Eosinophils % (Auto) 5.6 % (0.0-4.3); Hematocrit 29.8 % (35.5-45.6); Hemoglobin 9.8 gm/dl (11.8-15.2); Lymphocytes # (Auto) 0.8 K/mm3 (1.2-5.4); Lymphocytes % (Auto) 28.4 % (13.4-35.0); Mean Corpuscular HGB Conc 33 % (32-34); Mean Corpuscular Volume 94 fl (84-94); Monocytes # (Auto) 0.3 K/mm3 (0.0-0.8); Monocytes % (Auto) 9.3 % (0.0-7.3); Red Blood Count 3.16 M/mm3 (3.65-5.03)
[2018-06-30 06:05] LABS: Platelet Count 39 K/mm3 (140-440)
[2018-06-30 06:33] LABS: Calcium 8.6 mg/dL (8.4-10.2)
[2018-06-30] MEDS: HumaLOG SUB-Q SCH ×4 (08:20→21:57)
[2018-06-30] MEDS: COZAAR PO SCH (09:18)
[2018-06-30] MEDS: ALDACTONE PO SCH (09:18)
[2018-06-30] MEDS: LOPRESSOR PO SCH ×2 (09:18→21:17)
[2018-06-30] MEDS: FOLVITE PO SCH (09:18)
[2018-06-30] MEDS: VITAMIN B-1 PO SCH (09:18)
[2018-06-30] MEDS: HEPARIN SUB-Q SCH ×2 (09:19→21:17)
[2018-06-30] MEDS: PHOSLO PO SCH ×3 (09:19→16:40)
[2018-06-30] MEDS: SODIUM CHLORIDE FLUSH SYRINGE 10 ML IV SCH ×2 (09:25→21:17)
--- NOTE | 2018-06-30 10:22 | Progress Note ---
Assessment and Plan Assessment and plan: Hypoglycemia. Resolved. Continue to hold Lantus ESRD. Nephrology to plan for hemodialysis today. Resume TTS schedule tomorrow Malfunctioning/infected AVG s/p excision. --Blood cx: NGTD (06/21 at outpatient dialysis clinic per Dr. Azevedo). Surgical cultures and blood cultures remain negative. Continue Empiric abx - Vanco/Fortaz for now Hypertension. Continue antihypertensive medications. Anemia secondary to ESRD. Transfuse for hemoglobin less than 7. Type II DM. Continue Accu-Cheks and sliding scale regular insulin, hold Lantus as above. BG OK Thrombocytopenia. Follow CBC History Interval history: Mr. Cates is a 52yo gentleman with ESRD on HD TTS who is admitted to [facility] for an elective vascular procedure and noted to have an infected AVG. Patient is now s/p excision of AVG. Currently, he has no complaints. Hospitalist Physical - Constitutional Vitals: Temp Pulse Resp BP Pulse Ox 97.4 F L 71 20 142/84 99 06/30/18 05:58 06/30/18 05:58 06/30/18 05:58 06/30/18 09:18 06/30/18 05:58 General appearance: Present: no acute distress, cachectic - EENT Eyes: Present: PERRL, EOM intact ENT: hearing intact, clear oral mucosa, dentition normal - Neck Neck: Present: supple, normal ROM - Respiratory Respiratory effort: normal Respiratory: bilateral: CTA - Cardiovascular Rhythm: regular Heart Sounds: Present: S1 & S2. Absent: gallop, rub - Extremities Extremities: no ischemia, No edema, Full ROM - Abdominal General gastrointestinal: soft, non-tender, non-distended, normal bowel sounds - Integumentary Integumentary: Present: clear, warm, dry - Neurologic Neurologic: CNII-XII intact, moves all extremities Results - Labs CBC & Chem 7: 06/30/18 05:33 06/30/18 05:33 Labs: Laboratory Last Values WBC 2.8 K/mm3 (4.5-11.0) L 06/30/18 05:33 RBC 3.16 M/mm3 (3.65-5.03) L 06/30/18 05:33 Hgb 9.8 gm/dl (11.8-15.2) L 06/30/18 05:33 POC Hgb 10.5 (12-17) L 06/26/18 09:36 Hct 29.8 % (35.5-45.6) L 06/30/18 05:33 POC Hct 31 (38-51) L 06/26/18 09:36 MCV 94 fl (84-94) 06/30/18 05:33 MCH 31 pg (28-32) 06/30/18 05:33 MCHC 33 % (32-34) 06/30/18 05:33 RDW 15.0 % (13.2-15.2) 06/30/18 05:33 Plt Count 39 K/mm3 (140-440) L 06/30/18 05:33 Lymph % (Auto) 28.4 % (13.4-35.0) 06/30/18 05:33 [place] % (Auto) 9.3 % (0.0-7.3) H 06/30/18 05:33 Eos % (Auto) 5.6 % (0.0-4.3) H 06/30/18 05:33 Baso % (Auto) 1.0 % (0.0-1.8) 06/30/18 05:33 Lymph # 0.8 K/mm3 (1.2-5.4) L 06/30/18 05:33 [place] # 0.3 K/mm3 (0.0-0.8) 06/30/18 05:33 Eos # 0.2 K/mm3 (0.0-0.4) 06/30/18 05:33 Baso # 0.0 K/mm3 (0.0-0.1) 06/30/18 05:33 Seg Neutrophils % 55.7 % (40.0-70.0) 06/30/18 05:33 Seg Neutrophils # 1.6 K/mm3 (1.8-7.7) L 06/30/18 05:33 POC Sodium 132 mmol/L (138-146) L 06/26/18 09:36 POC Potassium 4.7 (3.5-4.9) 06/26/18 09:36 POC Chloride 100 (98-109) 06/26/18 09:36 Sodium 137 mmol/L (137-145) 06/30/18 05:33 Potassium 4.3 mmol/L (3.6-5.0) D 06/30/18 05:33 Chloride 102.4 mmol/L (98-107) 06/30/18 05:33 Carbon Dioxide 21 mmol/L (22-30) L 06/30/18 05:33 Anion Gap 18 mmol/L 06/30/18 05:33 POC BUN 53 mg/dl (8-26) H 06/26/18 09:36 BUN 31 mg/dL (9-20) H 06/30/18 05:33 Creatinine 5.0 mg/dL (0.8-1.5) H 06/30/18 05:33 Estimated GFR 15 ml/min 06/30/18 05:33 BUN/Creatinine Ratio 6 % 06/30/18 05:33 Glucose 148 mg/dL (75-100) H 06/30/18 05:33 POC Glucose 168 (70-105) H 06/29/18 22:11 Calcium 8.6 mg/dL (8.4-10.2) 06/30/18 05:33 Total Bilirubin 0.30 mg/dL (0.1-1.2) 06/27/18 05:22 AST 10 units/L (5-40) 06/27/18 05:22 ALT < 5 units/L (7-56) L 06/27/18 05:22 Alkaline Phosphatase 84 units/L (35-129) 06/27/18 05:22 Total Protein 5.9 g/dL (6.3-8.2) L 06/27/18 05:22 Albumin 3.3 g/dL (3.9-5) L 06/27/18 05:22 Albumin/Globulin Ratio 1.3 % 06/27/18 05:22 Random Vancomycin 15 ug/mL (0-40.0) 06/28/18 05:40 Active Medications - Current Medications Current Medications: Generic Name Dose Route Start Last Admin Trade Name Freq PRN Reason Stop Dose Admin Acetaminophen 650 mg 06/26/18 12:43 Tylenol PO Q4H PRN Pain MILD(1-3)/Fever >100.5/WONG Acetaminophen/Hydrocodone Bitart 1 each 06/26/18 12:46 [place] 5/325 PO Q4H PRN Pain , Severe (7-10) Albuterol 2.5 mg 06/26/18 12:43 Proventil IH Q4HRT PRN Shortness Of Breath Calcium Acetate 667 mg 06/27/18 08:00 06/30/18 09:19 Phoslo PO 667 mg TIDWM MAGDALENE Administration Dextrose 50 ml 06/26/18 20:14 06/28/18 07:34 D50w (25gm) Syringe IV 50 ml PRN PRN Administration Hypoglycemia Diphenhydramine HCl 25 mg 06/26/18 13:19 06/27/18 21:27 Benadryl PO 25 mg Q12H PRN Administration Itching Diphenoxylate HCl/Atropine 1 tab 06/26/18 13:20 Lomotil PO Q6H PRN Diarrhea Epoetin Jf 10,000 unit 06/27/18 10:10 Procrit IV RAJEEV PRN hemodialysis Ergocalciferol 50,000 unit 06/26/18 18:00 06/26/18 18:16 Vitamin D2 PO 50,000 unit MoTh MAGDALENE Administration Folic Acid 1 mg 06/27/18 10:00 06/30/18 09:18 Folvite PO 1 mg DAILY MAGDALENE Administration Heparin Sodium (Porcine) 5,000 unit 06/27/18 22:00 06/30/18 09:19 Heparin SUB-Q 5,000 unit Q12HR MAGDALENE Administration Heparin Sodium (Porcine) 5,000 unit 06/27/18 10:10 Heparin IV RAJEEV PRN hemodialysis Sodium Chloride 100 mls @ 999 mls/hr 06/27/18 10:10 Nacl 0.9% IV RAJEEV PRN Hypotension Cefepime HCl 1 gm in 100 mls @ 200 mls/hr 06/27/18 18:00 06/29/18 18:51 Maxipime/Ns 1 Gm/100 Ml IV 200 mls/hr QPM MAGDALENE Administration Protocol Sodium Chloride 100 mls @ 999 mls/hr 06/28/18 10:24 Nacl 0.9% IV RAJEEV PRN Hypotension Insulin Human Lispro 0 unit 06/26/18 22:00 06/30/18 08:20 Humalog SUB-Q Not Given ACHS MAGDALENE Protocol Levothyroxine Sodium 25 mcg 06/27/18 06:00 06/30/18 05:29 Synthroid PO 25 mcg DAILY@0600 MAGDALENE Administration Losartan Potassium 50 mg 06/27/18 10:00 06/30/18 09:18 Cozaar PO 50 mg QDAY MAGDALENE Administration Metoprolol Tartrate 25 mg 06/26/18 22:00 06/30/18 09:18 Lopressor PO 25 mg BID MAGDALENE Administration Mirtazapine 15 mg 06/26/18 22:00 06/29/18 21:59 Remeron PO 15 mg QHS MAGDALENE Administration Morphine Sulfate 2 mg 06/26/18 14:02 Morphine IV Q4H PRN Pain, Moderate (4-6) Morphine Sulfate 4 mg 06/26/18 14:02 Morphine IV Q4H PRN Pain , Severe (7-10) Naloxone HCl 0.1 mg 06/26/18 14:02 Narcan 0.4 Mg/1 Ml IV Q2MIN PRN Res Rate </= 8 or 02 SAT < 92% Ondansetron HCl 4 mg 06/26/18 12:43 06/26/18 18:52 Zofran IV 4 mg Q8H PRN Administration Nausea And Vomiting Sodium Chloride 10 ml 06/26/18 22:00 06/30/18 09:25 Sodium Chloride Flush Syringe 10 Ml IV 10 ml BID MAGDALENE Administration Sodium Chloride 10 ml 06/26/18 12:43 06/29/18 12:34 Sodium Chloride Flush Syringe 10 Ml IV 10 ml PRN PRN Administration LINE FLUSH Spironolactone 25 mg 06/27/18 10:00 06/30/18 09:18 Aldactone PO 25 mg QDAY MAGDALENE Administration Thiamine HCl 100 mg 06/27/18 10:00 06/30/18 09:18 Vitamin B-1 PO 100 mg QDAY MAGDALENE Administration Nutrition/Malnutrition Assess - Dietary Evaluation Nutrition/Malnutrition Findings: Nutrition Notes Start: 06/27/18 09:42 Freq: Status: Active Protocol: Document 06/27/18 09:42 CP (Rec: 06/27/18 09:54 CP [id number]) Co-Sign 06/27/18 09:42 LP Nutrition Notes Need for Assessment generated from: MD Order,Education,Low BMI Initial or Follow up Assessment Current Diagnosis CKD (stage V CKD),Diabetes, Hypertension Other Pertinent Diagnosis Hypothyroidism, DVT prophylaxis, nicotine dependence Current Diet Renal Diet Labs/Tests Na 134 BUN 60 Cr 7.7 Glu 125 Pertinent Medications Reviewed Height 6 ft 1 in Weight 61.9 kg [place] Body Weight (kg) 83.63 BMI 18.0 Weight Status Underweight Subjective/Other Information MD consult for diet education and RD screen for low BMI. Pt did not want diet education and was unresponsive for the rest of the visit. Noted fat loss and observed uneaten tray beside bed. Percent of energy/protein needs met: 0%/0% Burn Absent Trauma Absent #1 Nutrition Diagnosis Limited adherence to nutrition -related recommendations Etiology Pt not wanting diet education As Evidenced by Signs and Symptoms Pt being on hemodialysis Is patient on ventilator? No Is Patient Ambulatory and/or Out of Bed No REE-([facility]-confined to bed) 1843.512 Calculation Used for Recommendations [facility] Additional Notes Pro: 1.2-1.3g/kg (74-80g/day) Fluid: 1mL/kcal or per MD request Nutrition Intervention Change Diet Order: Continue current or per MD request Add Supplement/Snack (indicate name/kcal Nepro daily /protein ) Provides kCal: 425 Provides Protein (gm) 19 Goal #1 PO intake to meet at least 75% of energy and protein needs Anticipated Discharge Needs: Renal Diet Follow-Up By: 06/30/18 Additional Comments F/U: PO/ONS intakes
--- NOTE | 2018-06-30 10:58 | Progress Note ---
Assessment and Plan - Patient Problems (1) ESRD (end stage renal disease) on dialysis Current Visit: Yes Status: Acute Plan to address problem: End stage renal disease access: Left IJ tunnelled catheter No acute indication for dialysis today continue hemodialysis Saturday, and Saturday. (2) Uncontrolled hypertension Current Visit: No Status: Acute Plan to address problem: Ensure medications Monitor blood pressure (3) Anemia in chronic kidney disease Current Visit: Yes Status: Acute Plan to address problem: Moderate anemia Etiology to chronic kidney disease Hemoglobin 9.8 g per DL Monitor CBC (4) Dialysis AV fistula infection Current Visit: Yes Status: Acute Qualifiers: Encounter type: initial encounter Qualified Code(s): T82.7XXA - Infection and inflammatory reaction due to other cardiac and vascular devices, implants and grafts, initial encounter Plan to address problem: Dialysis in fistula infection status post excision clean bandage in place Subjective Principal diagnosis: infected avg Interval history: 52-year-old gentleman on with medical history significant for hypertension, end- stage renal disease on hemodialysis via a left IJ tunneled dialysis catheter status post fistula excision is concern for infection patient seen today denies any fevers chills denies any PND there is any abdominal pain no nausea Objective - Vital Signs Vital signs: Vital Signs - 12hr 06/29/18 06/30/18 06/30/18 23:55 05:58 09:18 Temperature 98.0 F 97.4 F L Pulse Rate 76 71 Respiratory 19 20 Rate Blood Pressure 149/84 159/74 142/84 O2 Sat by Pulse 100 99 Oximetry - General Appearance General appearance: well-developed, well-nourished EENT: ATNC, PERRL Neck: no JVD Respiratory: Present: Clear to Ascultation Cardiology: regular, S1S2 Gastrointestinal: normal, normoactive bowel sounds Integumentary: no rash Neurologic: alert and oriented x3, CN 3-12 intact Psychiatric: mood/affect appropriate - Lab 06/30/18 05:33 06/30/18 05:33 Most recent lab results Calcium 8.6 mg/dL (8.4-10.2) 06/30/18 05:33 - Imaging Chest x-ray: report reviewed Medications & Allergies - Medications Allergies/Adverse Reactions: Allergies No Known Drug Allergies Allergy (Verified 06/24/18 10:40) Unknown PT STATES THAT HE TOLD [facility] HE WAS ALLERGIC TO MORPHINE BECAUSE HE WAS AFRAID IF HE DIDN'T WRITE DOWN SOMETHING BEING WRONG WITH HIM THAT WOULDN'T LET HIM STAY Home Medications: Home Medications Medication Instructions Recorded Confirmed Last Taken Type Acidophilus 175 mg Capsule 100 mg PO BID 07/08/17 06/26/18 06/26/18 06:00 History Benadryl CAP 25 mg PO Q12H PRN 07/08/17 06/24/18 03/16/18 History Folic Acid 1 mg PO DAILY 07/08/17 06/26/18 06/26/18 06:00 History Lantus VIAL 10 units SQ QHS 07/08/17 06/26/18 06/25/18 21:00 History Lomotil 2.5-0.025 mg Tablet 2.5 mg PO Q6H PRN 07/08/17 06/24/18 03/16/18 History Metoprolol Tartrate 25 mg PO Q12H 07/08/17 06/26/18 06/26/18 06:00 History NovoLOG Flexpen 3 units SQ AC 07/08/17 06/26/18 06/25/18 21:00 History Phoslo 667 mg PO TID 07/08/17 06/26/18 06/25/18 21:00 History Remeron 15 mg PO QHS 07/08/17 06/26/18 06/25/18 21:00 History Synthroid 25 mcg PO QAM 07/08/17 06/26/18 06/26/18 06:00 History Thiamine HCl 100 mg PO DAILY 07/08/17 06/26/18 06/26/18 06:00 History Ergocalciferol [Vitamin D2] 1 cap PO 2XW 03/17/18 06/26/18 06/25/18 06:00 History HYDROcodone/ACETAMINOPHEN [[place] 1 each PO Q4-6H PRN #25 tablet 03/17/18 06/24/18 Unknown Rx 5-325 Tablet] Losartan [Cozaar] 50 mg PO QDAY 03/17/18 06/24/18 05/06/18 History 50mg Spironolactone [Aldactone] 25 mg PO QDAY 03/17/18 06/26/18 06/26/18 06:00 History Active Medications: Generic Name Dose Route Start Last Admin Trade Name Freq PRN Reason Stop Dose Admin Acetaminophen 650 mg 04/18/19 12:43 Tylenol PO Q4H PRN Pain MILD(1-3)/Fever >100.5/WONG Acetaminophen/Hydrocodone Bitart 1 each 06/26/18 12:46 [place] 5/325 PO Q4H PRN Pain , Severe (7-10) Albuterol 2.5 mg 06/26/18 12:43 Proventil IH Q4HRT PRN Shortness Of Breath Calcium Acetate 667 mg 06/27/18 08:00 06/30/18 09:19 Phoslo PO 667 mg TIDWM MAGDALENE Administration Dextrose 50 ml 06/26/18 20:14 06/28/18 07:34 D50w (25gm) Syringe IV 50 ml PRN PRN Administration Hypoglycemia Diphenhydramine HCl 25 mg 06/26/18 13:19 06/27/18 21:27 Benadryl PO 25 mg Q12H PRN Administration Itching Diphenoxylate HCl/Atropine 1 tab 06/26/18 13:20 Lomotil PO Q6H PRN Diarrhea Epoetin Jf 10,000 unit 06/27/18 10:10 Procrit IV RAJEEV PRN hemodialysis Ergocalciferol 50,000 unit 06/26/18 18:00 06/26/18 18:16 Vitamin D2 PO 50,000 unit MoTh MAGDALENE Administration Folic Acid 1 mg 06/27/18 10:00 06/30/18 09:18 Folvite PO 1 mg DAILY MAGDALENE Administration Heparin Sodium (Porcine) 5,000 unit 06/27/18 22:00 06/30/18 09:19 Heparin SUB-Q 5,000 unit Q12HR MAGDALENE Administration Heparin Sodium (Porcine) 5,000 unit 06/27/18 10:10 Heparin IV RAJEEV PRN hemodialysis Sodium Chloride 100 mls @ 999 mls/hr 06/27/18 10:10 Nacl 0.9% IV RAJEEV PRN Hypotension Cefepime HCl 1 gm in 100 mls @ 200 mls/hr 06/27/18 18:00 06/29/18 18:51 Maxipime/Ns 1 Gm/100 Ml IV 200 mls/hr QPM MAGDALENE Administration Protocol Sodium Chloride 100 mls @ 999 mls/hr 06/28/18 10:24 Nacl 0.9% IV RAJEEV PRN Hypotension Insulin Human Lispro 0 unit 06/26/18 22:00 06/30/18 08:20 Humalog SUB-Q Not Given ACHS [facility] Protocol Levothyroxine Sodium 25 mcg 06/27/18 06:00 06/30/18 05:29 Synthroid PO 25 mcg DAILY@0600 [facility] Administration Losartan Potassium 50 mg 06/27/18 10:00 06/30/18 09:18 Cozaar PO 50 mg QDAY [facility] Administration Metoprolol Tartrate 25 mg 06/26/18 22:00 06/30/18 09:18 Lopressor PO 25 mg BID MAGDALENE Administration Mirtazapine 15 mg 06/26/18 22:00 06/29/18 21:59 Remeron PO 15 mg QHS [facility] Administration Morphine Sulfate 2 mg 06/26/18 14:02 Morphine IV Q4H PRN Pain, Moderate (4-6) Morphine Sulfate 4 mg 06/26/18 14:02 Morphine IV Q4H PRN Pain , Severe (7-10) Naloxone HCl 0.1 mg 06/26/18 14:02 Narcan 0.4 Mg/1 Ml IV Q2MIN PRN Res Rate </= 8 or 02 SAT < 92% Ondansetron HCl 4 mg 06/26/18 12:43 06/26/18 18:52 Zofran IV 4 mg Q8H PRN Administration Nausea And Vomiting Sodium Chloride 10 ml 06/26/18 22:00 06/30/18 09:25 Sodium Chloride Flush Syringe 10 Ml IV 10 ml BID MAGDALENE Administration Sodium Chloride 10 ml 06/26/18 12:43 06/29/18 12:34 Sodium Chloride Flush Syringe 10 Ml IV 10 ml PRN PRN Administration LINE FLUSH Spironolactone 25 mg 06/27/18 10:00 06/30/18 09:18 Aldactone PO 25 mg QDAY MAGDALENE Administration Thiamine HCl 100 mg 06/27/18 10:00 06/30/18 09:18 Vitamin B-1 PO 100 mg QDAY MAGDALENE Administration
[2018-06-30] MEDS: VITAMIN D2 PO SCH (17:12)
[2018-06-30] MEDS: MAXIPIME/NS 1 GM/100 ML 1 GM/100 ML BAG IV SCH (17:12)
--- NOTE | 2018-06-30 17:30 | Progress Note ---
Assessment and Plan This patient is status post excision of an infected left upper extremity AV graft. His intraoperative culture data shows no growth at this point. His blood cultures are negative thus far. However, he did have ryne purulence noted intraoperatively. Postoperative antibiotics per the hospitalist, and nephrology recommendations versus infectious disease consultation. If the patient continued to have very little drainage, then his [place] drain can be removed tomorrow. Subjective Date of service: 06/30/18 Principal diagnosis: infected avg Interval history: Patient is awake and alert without specific complaint at present. He denies incisional pain Objective - Constitutional Vitals: Vital Signs - 12hr 06/30/18 06/30/18 06/30/18 05:58 09:16 09:18 Temperature 97.4 F L Pulse Rate 71 Respiratory 20 18 Rate Blood Pressure 159/74 142/84 142/84 Blood Pressure [Left] O2 Sat by Pulse 99 Oximetry 06/30/18 06/30/18 06/30/18 11:39 11:40 17:14 Temperature 97.9 F 97.9 F 98.1 F Pulse Rate 75 73 Respiratory 20 20 19 Rate Blood Pressure 137/64 123/66 Blood Pressure 137/64 [Left] O2 Sat by Pulse 100 100 Oximetry General appearance: Present: no acute distress - EENT Eyes: EOM intact ENT: hearing intact - Neck Neck: supple (Right internal jugular vein permacath in place) - Respiratory Respiratory effort: normal Extremities: no ischemia, normal temperature, abnormal (Bandages from his left upper arm were removed. His incision is closed with benedicto. His Bethany drain is in place as well as packing. There appears to be very little drainage at this point.) - Neurologic Neurologic: no focal deficits (No focal deficits appreciated, but Patient's speech pattern is slow and deliberate) - Psychiatric Psychiatric: appropriate mood/affect, intact judgment & insight - Additional findings Additional findings: - Labs CBC & Chem 7: 07/01/18 05:59 07/01/18 05:59 Labs: Abnormal lab results 06/29/18 06/30/18 06/30/18 Range/Units 22:11 05:33 05:33 WBC 2.8 L (4.5-11.0) K/mm3 RBC 3.16 L (3.65-5.03) M/mm3 Hgb 9.8 L (11.8-15.2) gm/dl Hct 29.8 L (35.5-45.6) % Plt Count 39 L (140-440) K/mm3 [place] % (Auto) 9.3 H (0.0-7.3) % Eos % (Auto) 5.6 H (0.0-4.3) % Lymph # 0.8 L (1.2-5.4) K/mm3 Seg Neutrophils # 1.6 L (1.8-7.7) K/mm3 Carbon Dioxide 21 L (22-30) mmol/L BUN 31 H (9-20) mg/dL Creatinine 5.0 H (0.8-1.5) mg/dL Glucose 148 H (75-100) mg/dL POC Glucose 168 H (70-105) 06/30/18 Range/Units 11:40 WBC (4.5-11.0) K/mm3 RBC (3.65-5.03) M/mm3 Hgb (11.8-15.2) gm/dl Hct (35.5-45.6) % Plt Count (140-440) K/mm3 [place] % (Auto) (0.0-7.3) % Eos % (Auto) (0.0-4.3) % Lymph # (1.2-5.4) K/mm3 Seg Neutrophils # (1.8-7.7) K/mm3 Carbon Dioxide (22-30) mmol/L BUN (9-20) mg/dL Creatinine (0.8-1.5) mg/dL Glucose (75-100) mg/dL POC Glucose 244 H (70-105) Medications & Allergies - Medications Allergies/Adverse Reactions: Allergies No Known Drug Allergies Allergy (Verified 06/24/18 10:40) Unknown PT STATES THAT HE TOLD [facility] HE WAS ALLERGIC TO MORPHINE BECAUSE HE WAS AFRAID IF HE DIDN'T WRITE DOWN SOMETHING BEING WRONG WITH HIM THAT WOULDN'T LET HIM STAY Home Medications: Home Medications Medication Instructions Recorded Confirmed Last Taken Type Acidophilus 175 mg Capsule 100 mg PO BID 07/08/17 06/26/18 06/26/18 06:00 History Benadryl CAP 25 mg PO Q12H PRN 07/08/17 06/24/18 03/16/18 History Folic Acid 1 mg PO DAILY 07/08/17 06/26/18 06/26/18 06:00 History Lantus VIAL 10 units SQ QHS 07/08/17 06/26/18 06/25/18 21:00 History Lomotil 2.5-0.025 mg Tablet 2.5 mg PO Q6H PRN 07/08/17 06/24/18 03/16/18 History Metoprolol Tartrate 25 mg PO Q12H 07/08/17 06/26/18 06/26/18 06:00 History NovoLOG Flexpen 3 units SQ AC 07/08/17 06/26/18 06/25/18 21:00 History Phoslo 667 mg PO TID 07/08/17 06/26/18 06/25/18 21:00 History Remeron 15 mg PO QHS 07/08/17 06/26/18 06/25/18 21:00 History Synthroid 25 mcg PO QAM 07/08/17 06/26/18 06/26/18 06:00 History Thiamine HCl 100 mg PO DAILY 07/08/17 06/26/18 06/26/18 06:00 History Ergocalciferol [Vitamin D2] 1 cap PO 2XW 03/17/18 06/26/18 06/25/18 06:00 History HYDROcodone/ACETAMINOPHEN [[place] 1 each PO Q4-6H PRN #25 tablet 03/17/18 06/24/18 Unknown Rx 5-325 Tablet] Losartan [Cozaar] 50 mg PO QDAY 03/17/18 06/24/18 05/06/18 History 50mg Spironolactone [Aldactone] 25 mg PO QDAY 03/17/18 06/26/18 06/26/18 06:00 History Active Medications: Generic Name Dose Route Start Last Admin Trade Name Freq PRN Reason Stop Dose Admin Acetaminophen 650 mg 06/26/18 12:43 Tylenol PO Q4H PRN Pain MILD(1-3)/Fever >100.5/WONG Acetaminophen/Hydrocodone Bitart 1 each 06/26/18 12:46 [place] 5/325 PO Q4H PRN Pain , Severe (7-10) Albuterol 2.5 mg 06/26/18 12:43 Proventil IH Q4HRT PRN Shortness Of Breath Calcium Acetate 667 mg 06/27/18 08:00 06/30/18 16:40 Phoslo PO 667 mg TIDWM MAGDALENE Administration Dextrose 50 ml 06/26/18 20:14 06/28/18 07:34 D50w (25gm) Syringe IV 50 ml PRN PRN Administration Hypoglycemia Diphenhydramine HCl 25 mg 06/26/18 13:19 06/27/18 21:27 Benadryl PO 25 mg Q12H PRN Administration Itching Diphenoxylate HCl/Atropine 1 tab 06/26/18 13:20 Lomotil PO Q6H PRN Diarrhea Epoetin Jf 10,000 unit 06/27/18 10:10 Procrit IV RAJEEV PRN hemodialysis Ergocalciferol 50,000 unit 06/26/18 18:00 06/30/18 17:12 Vitamin D2 PO 50,000 unit MoTh MAGADLENE Administration Folic Acid 1 mg 06/27/18 10:00 06/30/18 09:18 Folvite PO 1 mg DAILY [facility] Administration Heparin Sodium (Porcine) 5,000 unit 06/27/18 22:00 06/30/18 09:19 Heparin SUB-Q 5,000 unit Q12HR [facility] Administration Heparin Sodium (Porcine) 5,000 unit 06/27/18 10:10 Heparin IV RAJEEV PRN hemodialysis Cefepime HCl 1 gm in 100 mls @ 200 mls/hr 06/27/18 18:00 06/30/18 17:12 Maxipime/Ns 1 Gm/100 Ml IV 200 mls/hr QPM [facility] Administration Protocol Sodium Chloride 100 mls @ 999 mls/hr 06/28/18 10:24 Nacl 0.9% IV RAJEEV PRN Hypotension Insulin Human Lispro 0 unit 06/26/18 22:00 06/30/18 12:13 Humalog SUB-Q 3 unit ACHS [facility] Administration Protocol Levothyroxine Sodium 25 mcg 06/27/18 06:00 06/30/18 05:29 Synthroid PO 25 mcg DAILY@0600 [facility] Administration Losartan Potassium 50 mg 06/27/18 10:00 06/30/18 09:18 Cozaar PO 50 mg QDAY [facility] Administration Metoprolol Tartrate 25 mg 06/26/18 22:00 06/30/18 09:18 Lopressor PO 25 mg BID [facility] Administration Mirtazapine 15 mg 06/26/18 22:00 06/29/18 21:59 Remeron PO 15 mg QHS [facility] Administration Morphine Sulfate 2 mg 06/26/18 14:02 Morphine IV Q4H PRN Pain, Moderate (4-6) Morphine Sulfate 4 mg 06/26/18 14:02 Morphine IV Q4H PRN Pain , Severe (7-10) Naloxone HCl 0.1 mg 06/26/18 14:02 Narcan 0.4 Mg/1 Ml IV Q2MIN PRN Res Rate </= 8 or 02 SAT < 92% Ondansetron HCl 4 mg 06/26/18 12:43 06/26/18 18:52 Zofran IV 4 mg Q8H PRN Administration Nausea And Vomiting Sodium Chloride 10 ml 06/26/18 22:00 06/30/18 09:25 Sodium Chloride Flush Syringe 10 Ml IV 10 ml BID [facility] Administration Sodium Chloride 10 ml 06/26/18 12:43 06/29/18 12:34 Sodium Chloride Flush Syringe 10 Ml IV 10 ml PRN PRN Administration LINE FLUSH Spironolactone 25 mg 06/27/18 10:00 06/30/18 09:18 Aldactone PO 25 mg QDAY [facility] Administration Thiamine HCl 100 mg 06/27/18 10:00 06/30/18 09:18 Vitamin B-1 PO 100 mg QDAY MAGDALENE Administration
[2018-06-30] MEDS: REMERON PO SCH (21:17)
[2018-07-01] MEDS: SYNTHROID PO SCH (05:16)
[2018-07-01 06:32] LABS: Eosinophils # (Auto) 0.1 K/mm3 (0.0-0.4); Eosinophils % (Auto) 4.3 % (0.0-4.3); Hematocrit 28.9 % (35.5-45.6); Hemoglobin 9.5 gm/dl (11.8-15.2); Lymphocytes # (Auto) 0.7 K/mm3 (1.2-5.4); Lymphocytes % (Auto) 25.5 % (13.4-35.0); Mean Corpuscular HGB Conc 33 % (32-34); Mean Corpuscular Volume 94 fl (84-94); Monocytes # (Auto) 0.3 K/mm3 (0.0-0.8); Monocytes % (Auto) 8.6 % (0.0-7.3); Red Blood Count 3.07 M/mm3 (3.65-5.03); Red Cell Distribution Width 14.9 % (13.2-15.2)
[2018-07-01 06:33] LABS: Platelet Count 37 K/mm3 (140-440)
[2018-07-01 06:50] LABS: Calcium 8.5 mg/dL (8.4-10.2)
[2018-07-01] MEDS: PHOSLO PO SCH ×3 (08:44→17:35)
[2018-07-01] MEDS: HumaLOG SUB-Q SCH ×5 (08:44→22:37)
[2018-07-01] MEDS: HEPARIN SUB-Q SCH ×2 (09:27→21:47)
--- NOTE | 2018-07-01 09:31 | Event Note ---
Date: 07/01/18 Pt is awake and alert on HD. He is without complaint at present. Upper arm bandages appear clean Will hold off on Bethany drain removal at present as he is currently in the HD unit. Discussed with pt.
[2018-07-01] MEDS: LOPRESSOR PO SCH ×2 (10:00→21:43)
--- NOTE | 2018-07-01 13:18 | Progress Note ---
Assessment and Plan - Patient Problems (1) ESRD (end stage renal disease) on dialysis Current Visit: Yes Status: Acute Plan to address problem: End stage renal disease access: Left IJ tunnelled catheter I saw the patient on hemodialysis. continue hemodialysis Saturday, and Saturday. (2) Uncontrolled hypertension Current Visit: No Status: Acute Plan to address problem: Ensure medications Monitor blood pressure (3) Anemia in chronic kidney disease Current Visit: Yes Status: Acute Plan to address problem: Moderate anemia Etiology to chronic kidney disease Hemoglobin 9.8 g per DL Monitor CBC (4) Dialysis AV fistula infection Current Visit: Yes Status: Acute Qualifiers: Encounter type: initial encounter Qualified Code(s): T82.7XXA - Infection and inflammatory reaction due to other cardiac and vascular devices, implants and grafts, initial encounter Plan to address problem: Dialysis in fistula infection status post excision clean bandage in place Subjective Principal diagnosis: infected avg Interval history: 52-year-old gentleman on with medical history significant for hypertension, end- stage renal disease on hemodialysis via a left IJ tunneled dialysis catheter status post fistula excision is concern for infection patient seen today, reports he is having diarrhoea I attest I saw the patient on dialysis at 10am. He denies any fevers chills denies any PND Had some hypotension on dialysis Objective - Vital Signs Vital signs: Vital Signs - 12hr 07/01/18 07/01/18 07/01/18 05:20 09:10 09:20 Temperature 97.4 F L 98.0 F Pulse Rate 68 74 78 Respiratory 18 18 Rate Blood Pressure 118/59 110/62 115/64 O2 Sat by Pulse 98 Oximetry 07/01/18 07/01/18 07/01/18 09:30 09:45 10:00 Temperature Pulse Rate 93 H 92 H 89 Respiratory Rate Blood Pressure 103/58 99/46 78/42 O2 Sat by Pulse Oximetry 07/01/18 07/01/18 07/01/18 10:05 10:15 10:30 Temperature Pulse Rate 90 85 84 Respiratory Rate Blood Pressure 93/42 94/24 96/40 O2 Sat by Pulse Oximetry 07/01/18 07/01/18 07/01/18 10:45 11:00 11:15 Temperature Pulse Rate 82 81 79 Respiratory Rate Blood Pressure 106/49 103/51 90/53 O2 Sat by Pulse Oximetry 0407/01/18 07/01/18 11:30 11:45 12:00 Temperature Pulse Rate 78 77 76 Respiratory Rate Blood Pressure 106/56 109/57 108/59 O2 Sat by Pulse Oximetry 07/01/18 07/01/18 07/01/18 12:15 12:30 12:40 Temperature Pulse Rate 76 79 78 Respiratory Rate Blood Pressure 108/58 106/58 108/56 O2 Sat by Pulse Oximetry 07/01/18 12:50 Temperature 98.0 F Pulse Rate 74 Respiratory 18 Rate Blood Pressure 139/76 O2 Sat by Pulse Oximetry - General Appearance General appearance: well-developed, well-nourished EENT: ATNC, PERRL, mucous membranes dry Neck: no JVD Respiratory: Present: Clear to Ascultation Cardiology: regular, S1S2 Gastrointestinal: normal, normoactive bowel sounds Integumentary: no rash Neurologic: CN 3-12 intact Psychiatric: mood/affect appropriate - Lab 07/01/18 05:59 07/01/18 05:59 Most recent lab results Calcium 8.5 mg/dL (8.4-10.2) 07/01/18 05:59 Medications & Allergies - Medications Allergies/Adverse Reactions: Allergies No Known Drug Allergies Allergy (Verified 06/24/18 10:40) Unknown PT STATES THAT HE TOLD [facility] HE WAS ALLERGIC TO MORPHINE BECAUSE HE WAS AFRAID IF HE DIDN'T WRITE DOWN SOMETHING BEING WRONG WITH HIM THAT WOU LDN'T LET HIM STAY Home Medications: Home Medications Medication Instructions Recorded Confirmed Last Taken Type Acidophilus 175 mg Capsule 100 mg PO BID 07/08/17 06/26/18 06/26/18 06:00 History Benadryl CAP 25 mg PO Q12H PRN 07/08/17 06/24/18 03/16/18 History Folic Acid 1 mg PO DAILY 07/08/17 06/26/18 06/26/18 06:00 History Lantus VIAL 10 units SQ QHS 07/08/17 06/26/18 06/25/18 21:00 History Lomotil 2.5-0.025 mg Tablet 2.5 mg PO Q6H PRN 07/08/17 06/24/18 03/16/18 History Metoprolol Tartrate 25 mg PO Q12H 07/08/17 06/26/18 06/26/18 06:00 History NovoLOG Flexpen 3 units SQ AC 07/08/17 06/26/18 06/25/18 21:00 History Phoslo 667 mg PO TID 07/08/17 06/26/18 06/25/18 21:00 History Remeron 15 mg PO QHS 07/08/17 06/26/18 06/25/18 21:00 History Synthroid 25 mcg PO QAM 07/08/17 06/26/18 06/26/18 06:00 History Thiamine HCl 100 mg PO DAILY 07/08/17 06/26/18 06/26/18 06:00 History Ergocalciferol [Vitamin D2] 1 cap PO 2XW 03/17/18 06/26/18 06/25/18 06:00 History HYDROcodone/ACETAMINOPHEN [[place] 1 each PO Q4-6H PRN #25 tablet 03/17/18 06/24/18 Unknown Rx 5-325 Tablet] Losartan [Cozaar] 50 mg PO QDAY 03/17/18 06/24/18 05/06/18 History 50mg Spironolactone [Aldactone] 25 mg PO QDAY 03/17/18 06/26/18 06/26/18 06:00 Hi story Active Medications: Generic Name Dose Route Start Last Admin Trade Name Freq PRN Reason Stop Dose Admin Acetaminophen 650 mg 06/26/18 12:43 Tylenol PO Q4H PRN Pain MILD(1-3)/Fever >100.5/WONG Acetaminophen/Hydrocodone Bitart 1 each 06/26/18 12:46 [place] 5/325 PO Q4H PRN Pain , Severe (7-10) Albuterol 2.5 mg 06/26/18 12:43 Proventil IH Q4HRT PRN Shortness Of Breath Calcium Acetate 667 mg 06/27/18 08:00 07/01/18 08:44 Phoslo PO 667 mg TIDWM MAGDALENE Administration Dextrose 50 ml 06/26/18 20:14 06/28/18 07:34 D50w (25gm) Syringe IV 50 ml PRN PRN Administration Hypoglycemia Diphenhydramine HCl 25 mg 06/26/18 13:19 06/27/18 21:27 Benadryl PO 25 mg Q12H PRN Administration Itching Diphenoxylate HCl/Atropine 1 tab 06/26/18 13:20 Lomotil PO Q6H PRN Diarrhea Epoetin Jf 10,000 unit 06/27/18 10:10 Procrit IV RAJEEV PRN hemodialysis Ergocalciferol 50,000 unit 06/26/18 18:00 06/30/18 17:12 Vitamin D2 PO 50,000 unit MoTh [facility] Administration Folic Acid 1 mg 06/27/18 10:00 06/30/18 09:18 Folvite PO 1 mg DAILY [facility] Administration Heparin Sodium (Porcine) 5,000 unit 06/27/18 22:00 07/01/18 09:27 Heparin SUB-Q Not Given Q12HR [facility] Heparin Sodium (Porcine) 5,000 unit 06/27/18 10:10 Heparin IV RAJEEV PRN hemodialysis Cefepime HCl 1 gm in 100 mls @ 200 mls/hr 06/27/18 18:00 06/30/18 17:12 Maxipime/Ns 1 Gm/100 Ml IV 200 mls/hr QPM [facility] Administration Protocol Sodium Chloride 100 mls @ 999 mls/hr 06/28/18 10:24 Nacl 0.9% IV RAJEEV PRN Hypotension Vancomycin HCl 750 mg/ Sodium 265 mls @ 166.667 mls/hr 07/01/18 18:00 Chloride IV [id number]@1800 [facility] Insulin Human Lispro 0 unit 06/26/18 22:00 07/01/18 12:51 Humalog SUB-Q Not Given ACHS [facility] Protocol Levothyroxine Sodium 25 mcg 06/27/18 06:00 07/01/18 05:16 Synthroid PO 25 mcg DAILY@0600 [facility] Administration Losartan Potassium 50 mg 06/27/18 10:00 06/30/18 09:18 Cozaar PO 50 mg QDAY [facility] Administration Metoprolol Tartrate 25 mg 06/26/18 22:00 07/01/18 10:00 Lopressor PO Not Given BID [facility] Mirtazapine 15 mg 06/26/18 22:00 06/30/18 21:17 Remeron PO 15 mg QHS [facility] Administration Morphine Sulfate 2 mg 06/26/18 14:02 Morphine IV Q4H PRN Pain, Moderate (4-6) Morphine Sulfate 4 mg 06/26/18 14:02 Morphine IV Q4H PRN Pain , Severe (7-10) Naloxone HCl 0.1 mg 06/26/18 14:02 Narcan 0.4 Mg/1 Ml IV Q2MIN PRN Res Rate </= 8 or 02 SAT < 92% Ondansetron HCl 4 mg 06/26/18 12:43 06/26/18 18:52 Zofran IV 4 mg Q8H PRN Administration Nausea And Vomiting Sodium Chloride 10 ml 06/26/18 22:00 06/30/18 21:17 Sodium Chloride Flush Syringe 10 Ml IV 10 ml BID MAGDALENE Administration Sodium Chloride 10 ml 06/26/18 12:43 06/29/18 12:34 Sodium Chloride Flush Syringe 10 Ml IV 10 ml PRN PRN Administration LINE FLUSH Spironolactone 25 mg 06/27/18 10:00 06/30/18 09:18 Aldactone PO 25 mg QDAY MAGDALENE Administration Thiamine HCl 100 mg 06/27/18 10:00 06/30/18 09:18 Vitamin B-1 PO 100 mg QDAY MAGDALENE Administration
[2018-07-01] MEDS: VITAMIN B-1 PO SCH (13:57)
[2018-07-01] MEDS: FOLVITE PO SCH (13:57)
[2018-07-01] MEDS: SODIUM CHLORIDE FLUSH SYRINGE 10 ML IV SCH ×2 (13:57→22:38)
[2018-07-01] MEDS: ALDACTONE PO SCH (13:58)
[2018-07-01] MEDS: COZAAR PO SCH (13:58)
--- NOTE | 2018-07-01 16:30 | Progress Note ---
Assessment and Plan Assessment and plan: Hypoglycemia. Resolved. Continue to hold Lantus ESRD; had hemodialysis this morning Malfunctioning/infected AVG s/p excision. --Blood cx: NGTD (06/21 at outpatient dialysis clinic per Dr. Azevedo). Surgical cultures and blood cultures remain negative. Continue Empiric abx - Vanco/Fortaz for now. I will consult ID for the duration of antibiotics. Hypertension; Continue antihypertensive medications. Anemia secondary to ESRD. Transfuse for hemoglobin less than 7. Type II DM. Continue Accu-Cheks and sliding scale regular insulin, hold Lantus as above. BG OK Thrombocytopenia. Follow CBC History Interval history: Patient was seen and evaluated at the bedside, patient's complaining diarrhea, but don't know the duration of ABCs. Hospitalist Physical - Physical exam Narrative exam: Not in cardiopulmonary distress. The patient appeared well nourished and normally developed. Vital signs as documented. Head exam is unremarkable. No scleral icterus . Neck is without jugular venous distension, thyromegaly, or carotid bruits. Lungs are clear to auscultation. Cardiac exam reveals regular rate and Rhythm. Abdominal exam reveals normal bowel sounds. Extremities are nonedematous and both femoral and pedal pulses are normal. [employer]: Alert and oriented 3. No focal weakness. - Constitutional Vitals: Temp Pulse Resp BP Pulse Ox 98.3 F 74 18 106/51 100 07/01/18 13:10 07/01/18 13:10 07/01/18 13:10 07/01/18 13:58 07/01/18 13:10 General appearance: Present: no acute distress Results - Labs CBC & Chem 7: 07/01/18 05:59 07/01/18 05:59 Labs: Laboratory Last Values WBC 2.9 K/mm3 (4.5-11.0) L 07/01/18 05:59 RBC 3.07 M/mm3 (3.65-5.03) L 07/01/18 05:59 Hgb 9.5 gm/dl (11.8-15.2) L 07/01/18 05:59 POC Hgb 10.5 (12-17) L 06/26/18 09:36 Hct 28.9 % (35.5-45.6) L 07/01/18 05:59 POC Hct 31 (38-51) L 06/26/18 09:36 MCV 94 fl (84-94) 07/01/18 05:59 MCH 31 pg (28-32) 07/01/18 05:59 MCHC 33 % (32-34) 07/01/18 05:59 RDW 14.9 % (13.2-15.2) 07/01/18 05:59 Plt Count 37 K/mm3 (140-440) L 07/01/18 05:59 Lymph % (Auto) 25.5 % (13.4-35.0) 07/01/18 05:59 [place] % (Auto) 8.6 % (0.0-7.3) H 07/01/18 05:59 Eos % (Auto) 4.3 % (0.0-4.3) 07/01/18 05:59 Baso % (Auto) 1.0 % (0.0-1.8) 07/01/18 05:59 Lymph # 0.7 K/mm3 (1.2-5.4) L 07/01/18 05:59 [place] # 0.3 K/mm3 (0.0-0.8) 07/01/18 05:59 Eos # 0.1 K/mm3 (0.0-0.4) 07/01/18 05:59 Baso # 0.0 K/mm3 (0.0-0.1) 07/01/18 05:59 Seg Neutrophils % 60.6 % (40.0-70.0) 07/01/18 05:59 Seg Neutrophils # 1.8 K/mm3 (1.8-7.7) 07/01/18 05:59 POC Sodium 132 mmol/L (138-146) L 06/26/18 09:36 POC Potassium 4.7 (3.5-4.9) 06/26/18 09:36 POC Chloride 100 (98-109) 06/26/18 09:36 Sodium 138 mmol/L (137-145) 07/01/18 05:59 Potassium 4.1 mmol/L (3.6-5.0) 07/01/18 05:59 Chloride 102.8 mmol/L (98-107) 07/01/18 05:59 Carbon Dioxide 19 mmol/L (22-30) L 07/01/18 05:59 Anion Gap 20 mmol/L 07/01/18 05:59 POC BUN 53 mg/dl (8-26) H 06/26/18 09:36 BUN 50 mg/dL (9-20) H 07/01/18 05:59 Creatinine 6.4 mg/dL (0.8-1.5) H 07/01/18 05:59 Estimated GFR 11 ml/min 07/01/18 05:59 BUN/Creatinine Ratio 8 % 07/01/18 05:59 Glucose 124 mg/dL (75-100) H 07/01/18 05:59 POC Glucose 218 (70-105) H 07/01/18 16:12 Calcium 8.5 mg/dL (8.4-10.2) 07/01/18 05:59 Total Bilirubin 0.30 mg/dL (0.1-1.2) 06/27/18 05:22 AST 10 units/L (5-40) 06/27/18 05:22 ALT < 5 units/L (7-56) L 06/27/18 05:22 Alkaline Phosphatase 84 units/L (35-129) 06/27/18 05:22 Total Protein 5.9 g/dL (6.3-8.2) L 06/27/18 05:22 Albumin 3.3 g/dL (3.9-5) L 06/27/18 05:22 Albumin/Globulin Ratio 1.3 % 06/27/18 05:22 Random Vancomycin 19.5 ug/mL (0-40.0) 07/01/18 05:59 Active Medications - Current Medications Current Medications: Generic Name Dose Route Start Last Admin Trade Name Freq PRN Reason Stop Dose Admin Acetaminophen 650 mg 06/26/18 12:43 Tylenol PO Q4H PRN Pain MILD(1-3)/Fever >100.5/WONG Acetaminophen/Hydrocodone Bitart 1 each 06/26/18 12:46 [place] 5/325 PO Q4H PRN Pain , Severe (7-10) Albuterol 2.5 mg 06/26/18 12:43 Proventil IH Q4HRT PRN Shortness Of Breath Calcium Acetate 667 mg 06/27/18 08:00 07/01/18 13:57 Phoslo PO 667 mg TIDWM MAGDALENE Administration Dextrose 50 ml 06/26/18 20:14 06/28/18 07:34 D50w (25gm) Syringe IV 50 ml PRN PRN Administration Hypoglycemia Diphenhydramine HCl 25 mg 06/26/18 13:19 06/27/18 21:27 Benadryl PO 25 mg Q12H PRN Administration Itching Diphenoxylate HCl/Atropine 1 tab 06/26/18 13:20 Lomotil PO Q6H PRN Diarrhea Epoetin Jf 10,000 unit 06/27/18 10:10 Procrit IV RAJEEV PRN hemodialysis Ergocalciferol 50,000 unit 06/26/18 18:00 06/30/18 17:12 Vitamin D2 PO 50,000 unit MoTh MAGDALENE Administration Folic Acid 1 mg 06/27/18 10:00 07/01/18 13:57 Folvite PO 1 mg DAILY [facility] Administration Heparin Sodium (Porcine) 5,000 unit 06/27/18 22:00 07/01/18 09:27 Heparin SUB-Q Not Given Q12HR [facility] Heparin Sodium (Porcine) 5,000 unit 06/27/18 10:10 Heparin IV RAJEEV PRN hemodialysis Cefepime HCl 1 gm in 100 mls @ 200 mls/hr 06/27/18 18:00 06/30/18 17:12 Maxipime/Ns 1 Gm/100 Ml IV 200 mls/hr QPM [facility] Administration Protocol Sodium Chloride 100 mls @ 999 mls/hr 06/28/18 10:24 Nacl 0.9% IV RAJEEV PRN Hypotension Vancomycin HCl 750 mg/ Sodium 265 mls @ 166.667 mls/hr 07/01/18 18:00 Chloride IV TuThSa@1800 [facility] Insulin Human Lispro 0 unit 06/26/18 22:00 07/01/18 13:59 Humalog SUB-Q 3 unit ACHS [facility] Administration Protocol Levothyroxine Sodium 25 mcg 06/27/18 06:00 07/01/18 05:16 Synthroid PO 25 mcg DAILY@0600 [facility] Administration Losartan Potassium 50 mg 06/27/18 10:00 07/01/18 13:58 Cozaar PO Not Given QDAY [facility] Metoprolol Tartrate 25 mg 06/26/18 22:00 07/01/18 10:00 Lopressor PO Not Given BID [facility] Mirtazapine 15 mg 06/26/18 22:00 06/30/18 21:17 Remeron PO 15 mg QHS MAGDALENE Administration Morphine Sulfate 2 mg 06/26/18 14:02 Morphine IV Q4H PRN Pain, Moderate (4-6) Morphine Sulfate 4 mg 06/26/18 14:02 Morphine IV Q4H PRN Pain , Severe (7-10) Naloxone HCl 0.1 mg 06/26/18 14:02 Narcan 0.4 Mg/1 Ml IV Q2MIN PRN Res Rate </= 8 or 02 SAT < 92% Ondansetron HCl 4 mg 06/26/18 12:43 06/26/18 18:52 Zofran IV 4 mg Q8H PRN Administration Nausea And Vomiting Sodium Chloride 10 ml 06/26/18 22:00 07/01/18 13:57 Sodium Chloride Flush Syringe 10 Ml IV 10 ml BID MAGDALENE Administration Sodium Chloride 10 ml 06/26/18 12:43 06/29/18 12:34 Sodium Chloride Flush Syringe 10 Ml IV 10 ml PRN PRN Administration LINE FLUSH Spironolactone 25 mg 06/27/18 10:00 07/01/18 13:58 Aldactone PO Not Given QDAY MAGDALENE Thiamine HCl 100 mg 06/27/18 10:00 07/01/18 13:57 Vitamin B-1 PO 100 mg QDAY MAGDALENE Administration Nutrition/Malnutrition Assess - Dietary Evaluation Nutrition/Malnutrition Findings: Nutrition Notes Start: 06/27/18 0 9:42 Freq: Status: Active Protocol: Document 06/30/18 13:54 [place] (Rec: 06/30/18 14:17 OH [id number]) Nutrition Notes Initial or Follow up Reassessment Current Diagnosis CKD (stage V CKD),Diabetes, Hypertension Other Pertinent Diagnosis Hypothyroidism, DVT prophylaxis, nicotine dependence Current Diet Renal Diet Labs/Tests Na 137 GLU 168 Ca 8.6 Pertinent Medications Reviewed Height 6 ft 1 in Weight 58.4 kg [place] Body Weight (kg) 83.63 BMI 16.9 Weight change and time frame ~6% wt change noted from wt recorded 06/26/18. Pt. noted to have had a minimally accepted BMI upon admission. Weight Status Underweight Subjective/Other Information F/U: Pt. sitting up in bed. When asked about dialysis facility and LTCF pt unable to verbalize name of either. Pt. admitted for infected AVF and removal. Pt states he resides in LTCF. He reports he has been hungry since being admitted and would like larger food portions at meals. Pt. noted to be underweight for his ht based on BMI. Wt. loss noted since admission. Muscle/ fat depletion noted based on appearance of patient. Pt has teeth on the bottom and reports no issues w/chewing- swallowing. Will add extra servings of PRO/FRUIT to boost kcals/PRO. Percent of energy/protein needs met: 40/40% Burn Absent Trauma Absent GI Symptoms None Current % PO Poor (25-49%) Minimum of two criteria Yes Body Fat Depletion Moderate depletion (severe) Muscle Mass Moderate Depletion (severe) Protein-Calorie Malnutrition Severe #2 Nutrition Diagnosis Underweight Etiology inadequate energy/PRO intake prior to admission As Evidenced by Signs and Symptoms 16.9 Diagnosis Progress(for reassessment Continues documentation) Is patient on ventilator? No Is Patient Ambulatory and/or Out of Bed No REE-(Mower-St. or-confined to bed) 1801.548 Kcal/Kg value to use for calculation 35 Approximate Energy Requirements Using 2044 kcal/Kg Calculation Used for Recommendations Kcal/kg Additional Notes 83 kg IBW PRO: 1.2-1.4 g/PRO/KG/IBW 99 -116 G/DAY FLUID: 1 L/day or per MD Nutrition Intervention Change Diet Order: Renal Add Supplement/Snack (indicate name/kcal NEPRO BID /protein ) Provides kCal: 850 Provides Protein (gm) 38 Teaching Recipient Patient Learning Readiness Fair Teaching Methods Discussion Response to Teaching Verbalize understanding Education Handouts Provided Suggested pt follow up w/ dietary staff-RD @ LTCF for food preferences related to PRO sources as pt receives ICHD and requires increased PRO needs. Barriers to Learning Cognitive/Verbal Goal #2 wt to trend upward for BMI of 18 to be reached Anticipated Discharge Needs: LTCF to be educated on need for ONS; increased PRO REQUIREMENTS Follow-Up By: 07/02/18 Additional Comments F/U: po intake/increase in ONS FREQUENCY
[2018-07-01] MEDS: MAXIPIME/NS 1 GM/100 ML 1 GM/100 ML BAG IV SCH (17:35)
[2018-07-01] MEDS ORDERED: VANCOMYCIN 750 MG in NACL 0.9% 250ML 250 ML IV SCH (18:00)
[2018-07-01] MEDS: REMERON PO SCH (21:43)
[2018-07-02] MEDS: SYNTHROID PO SCH (05:46)
[2018-07-02] MEDS: FOLVITE PO SCH (09:38)
[2018-07-02] MEDS: COZAAR PO SCH (09:38)
[2018-07-02] MEDS: ALDACTONE PO SCH (09:38)
[2018-07-02] MEDS: PHOSLO PO SCH ×2 (09:38→13:06)
[2018-07-02] MEDS: HumaLOG SUB-Q SCH ×2 (09:39→13:07)
[2018-07-02] MEDS: VITAMIN B-1 PO SCH (09:39)
[2018-07-02] MEDS: HEPARIN SUB-Q SCH (09:39)
[2018-07-02] MEDS: LOPRESSOR PO SCH (09:39)
[2018-07-02] MEDS: SODIUM CHLORIDE FLUSH SYRINGE 10 ML IV SCH (09:40)
[2018-07-02 10:31] LABS: Eosinophils # (Auto) 0.1 K/mm3 (0.0-0.4); Eosinophils % (Auto) 4.6 % (0.0-4.3); Hematocrit 27.5 % (35.5-45.6); Hemoglobin 9.1 gm/dl (11.8-15.2); Lymphocytes # (Auto) 0.6 K/mm3 (1.2-5.4); Lymphocytes % (Auto) 24.9 % (13.4-35.0); Mean Corpuscular HGB Conc 33 % (32-34); Mean Corpuscular Volume 95 fl (84-94); Monocytes # (Auto) 0.3 K/mm3 (0.0-0.8); Monocytes % (Auto) 10.4 % (0.0-7.3); Red Blood Count 2.91 M/mm3 (3.65-5.03); Red Cell Distribution Width 14.5 % (13.2-15.2)
[2018-07-02 10:34] LABS: Platelet Count 33 K/mm3 (140-440)
--- NOTE | 2018-07-02 10:47 | Event Note ---
Date: 07/02/18 [place] drain removed in its entirety from the left upper stomach. The wound appears to be clean and dry. The left upper extremity is warm and well perfused.
[2018-07-02 10:52] LABS: Calcium 8.4 mg/dL (8.4-10.2)
--- NOTE | 2018-07-02 12:27 | Consultation ---
History of Present Illness - Reason for Consult Consult date: 07/02/18 AVF infection, Antibiotic managment Requesting physician: NANI SHANKAR - History of Present Illness This patient is a 52 year old male that resides in a SNF, with a past medical history of ESRD on HD (T, TINO, Sat), HTN, DM, Nicotine dependence and debilty that presents to [facility] on 06/26/18 for an elective vascular procedure and found to have an infected AV graph. At that time, patient was taken to the OR and underwent removal of AV graft from left arm and repair of severly diseased brachial artery with vein.. Surgical cultures were obtained and show no growth thus far. Blood cultures were drawn and show no growth to date. On admission WBC 4.3, Creatinine 4.4, Platelets 45 Temperature 98.5, HR 63, BP139/86.. ID consulted for Antibiotic management. Review of Systems: General: no fever, chills, nightsweats, unintentional weight change, or change in appetite Cutaneous: no rash, pruritus Head: no headaches or injury Eyes: no changes in vision, eye pain, double vision Ears: no ear pain, ear discharge, ringing or hearing loss Nose: no nose bleeding, stuffiness Mouth & throat: no bleeding gums, no horseness, no dental problems, or swollen glands Neck: no pain, node enlargement/lumps, tyroid enlargement or tenderness Respiratory: no cough, wheezing, sputum, hemoptysis, pleuritic chest pain Cardiovascular: no chest pain, leg edema, cyanosis, WRIGHT, orthopnea Musculoskeletal: no decreased joint motion, left arm wrapped in dressing s/p AVF graph excision Gastrointestinal: no nausea, vomiting, hematemesis, diarrhea, constipation, melena, bright red blood in stools, fecal incontinence, jaundice Genitourinary/Reproductive: no frequent urination, no dysuria, hematuria, incontinence Neurogical: no seizures, no headaches, no weakness, no paresthesias, no loss of speech or vision; no memory loss, no vertigo, no tremors, no numbness Psychiatric: stable mood; no excessive anxiety, sadness or moodiness Past History Past Medical History: diabetes, ESRD, hypertension, other (Debility) Past Surgical History: Other (Vas cath placement, ) Social history: single. denies: smoking, alcohol abuse, prescription drug abuse Family history: hypertension Medications and Allergies Allergies Allergy/AdvReac Type Severity Reaction Status Date / Time No Known Drug Allergies Allergy Unknown Verified 06/24/18 10:40 Home Medications Medication Instructions Recorded Confirmed Last Taken Type Acidophilus 175 mg Capsule 100 mg PO BID 07/08/17 06/26/18 06/26/18 06:00 History Benadryl CAP 25 mg PO Q12H PRN 07/08/17 06/24/18 03/16/18 History Folic Acid 1 mg PO DAILY 07/08/17 06/26/18 06/26/18 06:00 History Lantus VIAL 10 units SQ QHS 07/08/17 06/26/18 06/25/18 21:00 History Lomotil 2.5-0.025 mg Tablet 2.5 mg PO Q6H PRN 07/08/17 06/24/18 03/16/18 History Metoprolol Tartrate 25 mg PO Q12H 07/08/17 06/26/18 06/26/18 06:00 History NovoLOG Flexpen 3 units SQ AC 07/08/17 06/26/18 06/25/18 21:00 History Phoslo 667 mg PO TID 07/08/17 06/26/18 06/25/18 21:00 History Remeron 15 mg PO QHS 07/08/17 06/26/18 06/25/18 21:00 History Synthroid 25 mcg PO QAM 07/08/17 06/26/18 06/26/18 06:00 History Thiamine HCl 100 mg PO DAILY 07/08/17 06/26/18 06/26/18 06:00 History Ergocalciferol [Vitamin D2] 1 cap PO 2XW 03/17/18 06/26/18 06/25/18 06:00 History HYDROcodone/ACETAMINOPHEN [[place] 1 each PO Q4-6H PRN #25 tablet 03/17/18 06/24/18 Unknown Rx 5-325 Tablet] Losartan [Cozaar] 50 mg PO QDAY 03/17/18 06/24/18 05/06/18 History 50mg Spironolactone [Aldactone] 25 mg PO QDAY 03/17/18 06/26/18 06/26/18 06:00 History Active Meds: Active Medications Acetaminophen (Tylenol) 650 mg PO Q4H PRN PRN Reason: Pain MILD(1-3)/Fever >100.5/WONG Acetaminophen/Hydrocodone Bitart ([place] 5/325) 1 each PO Q4H PRN PRN Reason: Pain , Severe (7-10) Albuterol (Proventil) 2.5 mg IH Q4HRT PRN PRN Reason: Shortness Of Breath Calcium Acetate (Phoslo) 667 mg PO TIDWM [facility] Last Admin: 07/02/18 09:38 Dose: 667 mg Documented by: Dextrose (D50w (25gm) Syringe) 50 ml IV PRN PRN PRN Reason: Hypoglycemia Last Admin: 06/28/18 07:34 Dose: 50 ml Documented by: Diphenhydramine HCl (Benadryl) 25 mg PO Q12H PRN PRN Reason: Itching Last Admin: 06/27/18 21:27 Dose: 25 mg Documented by: Diphenoxylate HCl/Atropine (Lomotil) 1 tab PO Q6H PRN PRN Reason: Diarrhea Epoetin Jf (Procrit) 10,000 unit IV RAJEEV PRN PRN Reason: hemodialysis Ergocalciferol (Vitamin D2) 50,000 unit PO MoTh [facility] Last Admin: 06/30/18 17:12 Dose: 50,000 unit Documented by: Folic Acid (Folvite) 1 mg PO DAILY [facility] Last Admin: 07/02/18 09:38 Dose: 1 mg Documented by: Heparin Sodium (Porcine) (Heparin) 5,000 unit SUB-Q Q12HR [facility] Last Admin: 07/02/18 09:39 Dose: 5,000 unit Documented by: Heparin Sodium (Porcine) (Heparin) 5,000 unit IV RAJEEV PRN PRN Reason: hemodialysis Cefepime HCl (Maxipime/Ns 1 Gm/100 Ml) 1 gm in 100 mls @ 200 mls/hr IV QPM [facility]; Protocol Last Admin: 07/01/18 17:35 Dose: 200 mls/hr Documented by: Sodium Chloride (Nacl 0.9%) 100 mls @ 999 mls/hr IV RAJEEV PRN PRN Reason: Hypotension Vancomycin HCl 750 mg/ Sodium (Chloride) 265 mls @ 166.667 mls/hr IV TuThSa@1800 [facility] Last Admin: 07/01/18 17:49 Dose: 166.667 mls/hr Documented by: Insulin Human Lispro (Humalog) 0 unit SUB-Q ACHS [facility]; Protocol Last Admin: 07/02/18 09:39 Dose: 2 unit Documented by: Levothyroxine Sodium (Synthroid) 25 mcg PO DAILY@0600 [facility] Last Admin: 07/02/18 05:46 Dose: 25 mcg Documented by: Losartan Potassium (Cozaar) 50 mg PO QDAY [facility] Last Admin: 07/02/18 09:38 Dose: 50 mg Documented by: Metoprolol Tartrate (Lopressor) 25 mg PO BID [facility] Last Admin: 07/02/18 09:39 Dose: 25 mg Documented by: Mirtazapine (Remeron) 15 mg PO QHS [facility] Last Admin: 07/01/18 21:43 Dose: 15 mg Documented by: Morphine Sulfate (Morphine) 2 mg IV Q4H PRN PRN Reason: Pain, Moderate (4-6) Morphine Sulfate (Morphine) 4 mg IV Q4H PRN PRN Reason: Pain , Severe (7-10) Naloxone HCl (Narcan 0.4 Mg/1 Ml) 0.1 mg IV Q2MIN PRN PRN Reason: Res Rate </= 8 or 02 SAT < 92% Ondansetron HCl (Zofran) 4 mg IV Q8H PRN PRN Reason: Nausea And Vomiting Last Admin: 06/26/18 18:52 Dose: 4 mg Documented by: Sodium Chloride (Sodium Chloride Flush Syringe 10 Ml) 10 ml IV BID [facility] Last Admin: 07/02/18 09:40 Dose: 10 ml Documented by: Sodium Chloride (Sodium Chloride Flush Syringe 10 Ml) 10 ml IV PRN PRN PRN Reason: LINE FLUSH Last Admin: 06/29/18 12:34 Dose: 10 ml Documented by: Spironolactone (Aldactone) 25 mg PO QDAY [facility] Last Admin: 07/02/18 09:38 Dose: 25 mg Documented by: Thiamine HCl (Vitamin B-1) 100 mg PO QDAY [facility] Last Admin: 07/02/18 09:39 Dose: 100 mg Documented by: Physical Examination - Physical Exam Narrative exam: Constitutional: Alert, cooperative. No acute distress Head, Ears, Nose: Normocephalic, atraumatic. External ears, nose normal Eyes: Conjunctivae/corneas clear. No icterus. No ptosis. Neck: Supple, no meningeal signs Oral: dentition fair, no thrush. Cardiovascular: S1, S2 normal. Respiratory: Good air entry, clear to auscultation bilaterally GI: Soft, non-tender; bowel sounds normal. No peritoneal signs Musculoskeletal: s/p left arm AVG excision.+ dressing, D/I Skin: No rash or abscess. Hem/Lymphatic: No palpable cervical or supraclavicular nodes. No lymphangitis Psych: Mood ok. Affect normal Neurological: Awake, alert, oriented. - Constitutional Vitals: Vital Signs Temp Pulse Resp BP Pulse Ox 97.3 F L 64 18 137/52 99 07/02/18 05:15 07/02/18 05:15 07/02/18 05:15 07/02/18 05:15 07/02/18 05:15 Temperature -Last 24 Hours Temperature 97.3 F Temperature 97.5 F Temperature 97.9 F Temperature 98.3 F Temperature 98.0 F Results - Labs CBC & Chem 7: 07/02/18 09:43 07/02/18 09:43 Labs: Abnormal lab results 06/28/18 07/01/18 07/01/18 Range/Units 08:05 13:23 16:12 WBC (4.5-11.0) K/mm3 RBC (3.65-5.03) M/mm3 Hgb (11.8-15.2) gm/dl Hct (35.5-45.6) % MCV (84-94) fl Plt Count (140-440) K/mm3 [place] % (Auto) (0.0-7.3) % Eos % (Auto) (0.0-4.3) % Lymph # (1.2-5.4) K/mm3 Seg Neutrophils # (1.8-7.7) K/mm3 BUN (9-20) mg/dL Creatinine (0.8-1.5) mg/dL Glucose (75-100) mg/dL POC Glucose 215 H 216 H 218 H (70-105) 07/01/18 07/01/18 07/01/18 Range/Units 21:48 21:50 23:06 WBC (4.5-11.0) K/mm3 RBC (3.65-5.03) M/mm3 Hgb (11.8-15.2) gm/dl Hct (35.5-45.6) % MCV (84-94) fl Plt Count (140-440) K/mm3 [place] % (Auto) (0.0-7.3) % Eos % (Auto) (0.0-4.3) % Lymph # (1.2-5.4) K/mm3 Seg Neutrophils # (1.8-7.7) K/mm3 BUN (9-20) mg/dL Creatinine (0.8-1.5) mg/dL Glucose (75-100) mg/dL POC Glucose 406 H 379 H 387 H (70-105) 07/02/18 07/02/18 07/02/18 Range/Units 00:03 08:37 09:43 WBC 2.5 L (4.5-11.0) K/mm3 RBC 2.91 L (3.65-5.03) M/mm3 Hgb 9.1 L (11.8-15.2) gm/dl Hct 27.5 L (35.5-45.6) % MCV 95 H (84-94) fl Plt Count 33 L (140-440) K/mm3 [place] % (Auto) 10.4 H (0.0-7.3) % Eos % (Auto) 4.6 H (0.0-4.3) % Lymph # 0.6 L (1.2-5.4) K/mm3 Seg Neutrophils # 1.5 L (1.8-7.7) K/mm3 BUN (9-20) mg/dL Creatinine (0.8-1.5) mg/dL Glucose (75-100) mg/dL POC Glucose 293 H 173 H (70-105) 07/02/18 07/02/18 Range/Units 09:43 11:29 WBC (4.5-11.0) K/mm3 RBC (3.65-5.03) M/mm3 Hgb (11.8-15.2) gm/dl Hct (35.5-45.6) % MCV (84-94) fl Plt Count (140-440) K/mm3 [place] % (Auto) (0.0-7.3) % Eos % (Auto) (0.0-4.3) % Lymph # (1.2-5.4) K/mm3 Seg Neutrophils # (1.8-7.7) K/mm3 BUN 32 H (9-20) mg/dL Creatinine 4.4 H (0.8-1.5) mg/dL Glucose 164 H (75-100) mg/dL POC Glucose 235 H (70-105) Assessment and Plan Cultures: 06/26/2018 Fistula/Anaerobic: no growth to date 06/26/2018 Fistula/Surgical: heavy growth of normal skin alicja 06/27/2018 Blood: no growth to date 06/26/2018 MRSA PCR: negative A/P: 52 year old male that resides in a SNF, with a past medical history of ESRD on HD (T, TINO, Sat), HTN, DM, Nicotine dependence and debilty that presents to [facility] on 06/26/18 for an elective vascular procedure and found to have an infected AV graph. 1. Infected/malfunctioning AVG s/p excision: Taken to the OR on 06/26/18 and underwent removal of AV graph from left arm and repair of severely diseased brachial artery Surgical and blood cultures show no growth to date. No fever or leukocyosis, CRP .20. Currently being treated with Vancomycin and Cefepime. 2. ESRD on HD: Right IJ permacath. HD on Saturday, and Saturday. 3. Pancytopenia: etiology unclear, monitor CBC 4. Anemia: monitor CBC 5. Type 2 DM: recommend tight glycemic control 6. Diarrhea: on admission. C-Diff cultures ordered Plan: -Discontinue Vancomycin and Cefepime -Start Cefazolin 1gm IV Q PM -Anticipate discharge on Cefazolin IV 2gms Saturday, 2 gms and 3gms Saturday post HD for total 2 weeks ending 07-11-18 -Order placed with case management -f/u ID clinic in 2 weeks -f/u blood cultures and surgical cultures D/W Dr. Fercho Brito, CLINICAL REHABILITATION AIDE [facility] M: [phone] O:[phone]
--- NOTE | 2018-07-02 13:47 | Discharge Summary ---
Providers - Providers Date of Admission: 06/26/18 12:43 Attending physician: NANI SHANKAR MD 06/26/18 14:01 Consult to Wound/ET Nurse [CONS] Routine Reason For Exam: wound eval, s/p removal of infected avg, duy 06/26/18 20:15 Consult to Dietitian/Nutrition [CONS] Routine Physician Instructions: Reason For Exam: Reason for Consult: Diet education 06/26/18 20:56 Consult to Physician [CONS] Routine Comment: Consulting Provider: ALEXIS MONAE Physician Instructions: Reason For Exam: ESRD 07/01/18 16:22 Consult to Physician [CONS] Routine Comment: Consulting Provider: KM FERNANDEZ Physician Instructions: Reason For Exam: AVF infection, to assess the duration of ABCs Primary care physician: TEO AVILES Hospitalization Reason for admission: Malfunction of AVG, infection of AVG Procedures: Excision of AVG Hospital course: 52 YO Male Long-Term Facility Resident with ESRD on HD(T,R,Sa), HTN, DM, Nicotine Dependence, Debility presents to [facility] for elective vascular procedure and found to have infected AV Graft. Pt taken to OR and underwent removal of AV graft with repair of brachial vessels. Pt treated with IV antibiotic therapy in OR. Pt seen and evaluated uopn arrival to his room. Pt found to have ESRD. Pt resting comfortably at time of exam. Pt denies fever, chills, CP, palpitations, NVD, productive cough, or recent ill contacts. Pt is in his usual state of health. No reported nursing events. Nephrology consulted ESRD; patient had perm cath and HD resumed Malfunctioning/infected AVG s/p excision. --Blood cx: NGTD (06/21 at outpatient dialysis clinic per Dr. Azevedo). Surgical cultures and blood cultures remain negative. Patient was treated with Empiric abx - Vanco/Fortaz and discharged with cefazolin as an O/P during dialysis for 2 weeks per ID recommendations. Hypertension; Continue antihypertensive medications. Anemia secondary to ESRD; stable Type II DM with Hypoglycemia. Resolved; treated with SSI. patient was hemodynamically stable at the time of discharge. Disposition: DC/TX-03 SNF [facility] Time spent for discharge: 32 minutes - Discharge Diagnoses (1) ESRD (end stage renal disease) on dialysis Status: Acute (2) Mechanical complication of arteriovenous shunt surgically created Status: Acute Qualifiers: Encounter type: initial encounter Qualified Code(s): T82.590A - Other mechanical complication of surgically created arteriovenous fistula, initial encounter Core Measure Documentation - Palliative Care Palliative Care/ Comfort Measures: Not Applicable - Core Measures Any of the following diagnoses?: none Exam - Physical Exam Narrative exam: Not in cardiopulmonary distress. The patient appeared well nourished and normally developed. Vital signs as documented. Head exam is unremarkable. No scleral icterus . Neck is without jugular venous distension, thyromegaly, or carotid bruits. Lungs are clear to auscultation. Cardiac exam reveals regular rate and Rhythm. Abdominal exam reveals normal bowel sounds. Extremities are nonedematous and both femoral and pedal pulses are normal. 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 No focal weakness. - Constitutional Vitals: Temp Pulse Resp BP Pulse Ox 97.3 F L 64 18 137/52 99 07/02/18 05:15 07/02/18 05:15 07/02/18 05:15 07/02/18 05:15 07/02/18 05:15 Plan Activity: no restrictions Weight Bearing Status: Full Weight Bearing Diet: diabetic, renal Follow up with: TEO AVILES MD [Primary Care Provider] - 7 Days
[2018-07-02 16:44] VITALS: BP 139/72
--- NOTE | 2018-07-02 17:36 | Progress Note ---
Assessment and Plan - Patient Problems (1) ESRD (end stage renal disease) on dialysis Status: Acute Plan to address problem: End stage renal disease access: Left IJ tunnelled catheter continue hemodialysis Saturday, and Saturday. (2) Uncontrolled hypertension Status: Acute Plan to address problem: Ensure medications Monitor blood pressure (3) Anemia in chronic kidney disease Status: Acute Plan to address problem: Moderate anemia Etiology to chronic kidney disease Hemoglobin 9.8 g per DL Monitor CBC (4) Dialysis AV fistula infection Status: Acute Qualifiers: Encounter type: initial encounter Qualified Code(s): T82.7XXA - Infection and inflammatory reaction due to other cardiac and vascular devices, implants and grafts, initial encounter Plan to address problem: Dialysis in fistula infection status post excision clean bandage in place Subjective Principal diagnosis: infected avg Interval history: 52-year-old gentleman on with medical history significant for hypertension, end- stage renal disease on hemodialysis via a left IJ tunneled dialysis catheter status post fistula excision is concern for infection patient seen today, clean dressing over arm. He denies any fevers chills denies any PND Had some hypotension on dialysis Objective - Vital Signs Vital signs: Vital Signs - 12hr 07/02/18 16:42 Temperature 98.2 F Pulse Rate 69 Respiratory 20 Rate Blood Pressure 139/72 O2 Sat by Pulse 99 Oximetry - General Appearance General appearance: well-developed, well-nourished EENT: ATNC, PERRL Neck: no JVD, JVD Respiratory: Present: Clear to Ascultation Cardiology: regular, S1S2 Gastrointestinal: normal, normoactive bowel sounds Integumentary: no rash Neurologic: CN 3-12 intact Musculoskeletal: deferred Psychiatric: mood/affect appropriate - Lab 07/02/18 09:43 07/02/18 09:43 Most recent lab results Calcium 8.4 mg/dL (8.4-10.2) 07/02/18 09:43 - Imaging Chest x-ray: image reviewed Medications & Allergies - Medications Allergies/Adverse Reactions: Allergies No Known Drug Allergies Allergy (Verified 06/24/18 10:40) Unknown PT STATES THAT HE TOLD [facility] HE WAS ALLERGIC TO MORPHINE BECAUSE HE WAS AFRAID IF HE DIDN'T WRITE DOWN SOMETHING BEING WRONG WITH HIM THAT WOULDN'T LET HIM STAY Home Medications: Home Medications Medication Instructions Recorded Confirmed Last Taken Type Acidophilus 175 mg Capsule 100 mg PO BID 07/08/17 06/26/18 06/26/18 06:00 History Benadryl CAP 25 mg PO Q12H PRN 07/08/17 06/24/18 03/16/18 History Folic Acid 1 mg PO DAILY 07/08/17 06/26/18 06/26/18 06:00 History Lantus VIAL 10 units SQ QHS 07/08/17 06/26/18 06/25/18 21:00 History Lomotil 2.5-0.025 mg Tablet 2.5 mg PO Q6H PRN 07/08/17 06/24/18 03/16/18 History Metoprolol Tartrate 25 mg PO Q12H 07/08/17 06/26/18 06/26/18 06:00 History NovoLOG Flexpen 3 units SQ AC 07/08/17 06/26/18 06/25/18 21:00 History Phoslo 667 mg PO TID 07/08/17 06/26/18 06/25/18 21:00 History Remeron 15 mg PO QHS 07/08/17 06/26/18 06/25/18 21:00 History Synthroid 25 mcg PO QAM 07/08/17 06/26/18 06/26/18 06:00 History Thiamine HCl 100 mg PO DAILY 07/08/17 06/26/18 06/26/18 06:00 History Ergocalciferol [Vitamin D2] 1 cap PO 2XW 03/17/18 06/26/18 06/25/18 06:00 Histo ry HYDROcodone/ACETAMINOPHEN [[place] 1 each PO Q4-6H PRN #25 tablet 03/17/18 06/24/18 Unknown Rx 5-325 Tablet] Losartan [Cozaar] 50 mg PO QDAY 03/17/18 06/24/18 05/06/18 History 50mg Spironolactone [Aldactone] 25 mg PO QDAY 03/17/18 06/26/18 06/26/18 06:00 History
[2018-07-02] MEDS ORDERED: ANCEF/NS 1 GM/50 ML 1 GM/50 ML BAG IV SCH (18:00)
--- NOTE | 2018-07-10 18:53 | Operative Report ---
PREOPERATIVE DIAGNOSES: Infected thrombosed left arm hemodialysis access graft, end-stage renal disease. POSTOPERATIVE DIAGNOSES: Infected thrombosed left arm hemodialysis access graft, end-stage renal disease. OPERATIVE PROCEDURES: 1. Removal of infected hemodialysis graft, left arm. 2. Repair of brachial artery with vein. SURGEON: Bridger Smyth MD LEAD RECREATION ASSISTANT: Harini Felix, nurse practitioner. ESTIMATED BLOOD LOSS: Minimal. CONDITION: The patient's condition is stable. COMPLICATIONS: None. INSTRUMENT COUNTS: Correct. SPECIMENS: Infected graft. ANESTHESIA: General endotracheal. OPERATIVE FINDINGS: Graft poorly incorporated, surrounded and filled with infectious material. Cultures obtained. Hand warm. Palpable pulse examination unchanged from preoperatively. DESCRIPTION OF PROCEDURE: The patient in the supine position. After adequate levels of general endotracheal anesthesia was obtained, the left arm was prepped and draped using standard sterile technique. Initially, the patient had been brought to the hospital to proceed with a new AV access placement; however, his old graft was found become infected with several areas of pustular formation and purulent drainage. It was then elected to proceed with graft removal. Initially, the approach was to make an incision through the old graft incision near the arterial end and carried that down through the subcutaneous tissue. Very carefully, the old graft and its anastomosis with the artery was delineated from the surrounding tissue, encircled using vessel loops. The artery was then occluded and the graft was amputated and removed, leaving arterial defect. There was limited inflow and outflow in the artery. Proceeded to freshen the edges up and attempt to identify an outflow lumen. This proved somewhat difficult, although I finally felt that I found a small one. Then obtained a vein in the area and opened it up, spatulated and created a patch, which was closed over the arteriotomy using 6-0 Prolene suture in running technique. At the completion of the suture line, flow was released distally. Soft pulse was palpable in the brachial artery below the repair. Attention was then turned to the axilla where a longitudinal incision was made through the old venous incision and carried down through the subcutaneous tissue. Once again, I delineated the graft and its anastomosis with the vein and gained proximal and distal control of the vein. I then amputated the graft and oversewed the vein using a running Prolene suture. It was not clear if the vein itself was patent, but either way, the anastomosis was closed in an attempt to preserve venous function. Once it was determined that the closure was watertight, I then proceeded to dissect the graft from the subcutaneous tract. The graft was not well incorporated and slid out rather easily after only minor dissection. The graft had purulent material within. The entire graft along with the drainage was cultured. The two infected access sites were then excised, connecting to the graft tunnel. The graft tunnel was then vigorously irrigated. I then placed a Bethany drain between the two incisions over the graft and secured it with a sterile safety pin. Each of the vessel repair sites both proximal and distal were vigorously irrigated and then isolated from the graft tunnel using Vicryl suture. I then closed them using 3-0 Vicryl suture and reapproximated the skin with skin benedicto. Sterile dressings were applied. A light Fred wrap was placed on the arm for hemostasis. The patient was then returned to the supine position and was then extubated and returned to recovery room in stable condition having tolerated the procedure well. Sponge and needle counts were correct. JOB# [id number] MEHREEN/JACOBY
== END 2018-07-02 17:10 | DRG 252 ==
LOC: OR 07:40 → 3A 12:43
PROVIDERS: ADMIT Internal Medicine; ATTEND Internal Medicine
PROC: 03U807Z Supplement Left Brachial Artery with Autologous Tissue Substitute, Open Approach (ICD-10-PCS; principal; 2018-06-26)
PROC: 03PY0JZ Removal of Synthetic Substitute from Upper Artery, Open Approach (ICD-10-PCS; 2018-06-26)
PROC: 05PY0JZ Removal of Synthetic Substitute from Upper Vein, Open Approach (ICD-10-PCS; 2018-06-26)
PROC: 5A1D70Z Performance of Urinary Filtration, Intermittent, Less than 6 Hours Per Day (ICD-10-PCS; 2018-06-27)
PROC: 5A1D70Z Performance of Urinary Filtration, Intermittent, Less than 6 Hours Per Day (ICD-10-PCS; 2018-06-28)
PROC: 5A1D70Z Performance of Urinary Filtration, Intermittent, Less than 6 Hours Per Day (ICD-10-PCS; 2018-07-01)
DX: T82.7XXA Infection and inflammatory reaction due to other cardiac and vascular devices, implants and grafts, initial encounter (principal); N18.6 End stage renal disease; I12.0 Hypertensive chronic kidney disease with stage 5 chronic kidney disease or end stage renal disease; D61.818 Other pancytopenia; E03.9 Hypothyroidism, unspecified; D63.1 Anemia in chronic kidney disease; F17.200 Nicotine dependence, unspecified, uncomplicated; R19.7 Diarrhea, unspecified; Y83.2 Surgical operation with anastomosis, bypass or graft as the cause of abnormal reaction of the patient, or of later complication, without mention of misadventure at the time of the procedure; E11.22 Type 2 diabetes mellitus with diabetic chronic kidney disease; E11.649 Type 2 diabetes mellitus with hypoglycemia without coma; Z82.49 Family history of ischemic heart disease and other diseases of the circulatory system; Z79.899 Other long term (current) drug therapy; Y92.098 Other place in other non-institutional residence as the place of occurrence of the external cause; Z79.84 Long term (current) use of oral hypoglycemic drugs
CPT/HCPCS: 36415; 80048; 80053; 80202; 82803; 82962; 85025; 86140; 87040; 87075; 87116; 88300; 88304; G0378; J0690; J0692; J1644; J1815; J2250; J2405; J2704; J3010; J3370; J7030; J7040; J7050

== ENCOUNTER 2018-09-25 18:43 | Emergency (ER) | payer MEDICARE ==
--- NOTE | 2018-09-25 19:03 | Emergency Department Report ---
ED Altered Mental Status HPI - General Stated Complaint: COPD Time Seen by Provider: 09/25/18 18:48 - History of Present Illness Initial Comments: Patient is 53 years old male with history of COPD, end stage renal disease on hemodialysis, finished dialysis today. Patient is a alf home resident brought from dialysis center for evaluation of confusion and shortness of breath. EMS stated that confusion started yesterday after patient was di agnosed with UTI and started on Levaquin. Patient is alert, oriented to place, person but not time. No evidence of respiratory distress. MD Complaint: confusion - Related Data Home Medications Medication Instructions Recorded Confirmed Last Taken Acidophilus 175 mg Capsule 100 mg PO BID 07/08/17 06/26/18 06/26/18 06:00 Benadryl CAP 25 mg PO Q12H PRN 07/08/17 06/24/18 03/16/18 Folic Acid 1 mg PO DAILY 07/08/17 06/26/18 06/26/18 06:00 Lantus VIAL 10 units SQ QHS 07/08/17 06/26/18 06/25/18 21:00 Lomotil 2.5-0.025 mg Tablet 2.5 mg PO Q6H PRN 07/08/17 06/24/18 03/16/18 Metoprolol Tartrate 25 mg PO Q12H 07/08/17 06/26/18 06/26/18 06:00 NovoLOG Flexpen 3 units SQ AC 07/08/17 06/26/18 06/25/18 21:00 Phoslo 667 mg PO TID 07/08/17 06/26/18 06/25/18 21:00 Remeron 15 mg PO QHS 07/08/17 06/26/18 06/25/18 21:00 Synthroid 25 mcg PO QAM 07/08/17 06/26/18 06/26/18 06:00 Thiamine HCl 100 mg PO DAILY 07/08/17 06/26/18 06/26/18 06:00 Ergocalciferol [Vitamin D2] 1 cap PO 2XW 03/17/18 06/26/18 06/25/18 06:00 Losartan [Cozaar] 50 mg PO QDAY 03/17/18 06/24/18 05/06/18 50mg Spironolactone [Aldactone] 25 mg PO QDAY 03/17/18 06/26/18 06/26/18 06:00 Previous Rx's Medication Instructions Recorded Last Taken Type HYDROcodone/ACETAMINOPHEN [[place] 1 each PO Q4-6H PRN #25 tablet 03/17/18 Unknown Rx 5-325 Tablet] Allergies Allergy/AdvReac Type Severity Reaction Status Date / Time No Known Drug Allergies Allergy Unknown Verified 06/24/18 10:40 ED Review of Systems ROS: Stated complaint: COPD Other details as noted in HPI Comment: All other systems reviewed and negative Constitutional: denies: chills, fever Respiratory: shortness of breath. denies: cough, orthopnea Cardiovascular: denies: chest pain Gastrointestinal: denies: abdominal pain, nausea, vomiting, diarrhea, constipation, hematemesis, hematochezia Musculoskeletal: denies: back pain Neurological: denies: headache ED Past Medical Hx - Past Medical History Hx Hypertension: Yes Hx Heart Attack/AMI: No Hx Congestive Heart Failure: No Hx Diabetes: Yes Hx Renal Disease: Yes Hx Asthma: No Hx COPD: No Additional medical history: unable to walk due to weak leg muscles - Surgical History Additional Surgical History: vas cath to right chest wall - Social History Smoking Status: Former Smoker - Medications Home Medications: Home Medications Medication Instructions Recorded Confirmed Last Taken Type Acidophilus 175 mg Capsule 100 mg PO BID 07/08/17 06/26/18 06/26/18 06:00 History Benadryl CAP 25 mg PO Q12H PRN 07/08/17 06/24/18 03/16/18 History Folic Acid 1 mg PO DAILY 07/08/17 06/26/18 06/26/18 06:00 History Lantus VIAL 10 units SQ QHS 07/08/17 06/26/18 06/25/18 21:00 History Lomotil 2.5-0.025 mg Tablet 2.5 mg PO Q6H PRN 07/08/17 06/24/18 03/16/18 History Metoprolol Tartrate 25 mg PO Q12H 07/08/17 06/26/18 06/26/18 06:00 History NovoLOG Flexpen 3 units SQ AC 07/08/17 06/26/18 06/25/18 21:00 History Phoslo 667 mg PO TID 07/08/17 06/26/18 06/25/18 21:00 History Remeron 15 mg PO QHS 07/08/17 06/26/18 06/25/18 21:00 History Synthroid 25 mcg PO QAM 07/08/17 06/26/18 06/26/18 06:00 History Thiamine HCl 100 mg PO DAILY 07/08/17 06/26/18 06/26/18 06:00 History Ergocalciferol [Vitamin D2] 1 cap PO 2XW 03/17/18 06/26/18 06/25/18 06:00 History HYDROcodone/ACETAMINOPHEN [[place] 1 each PO Q4-6H PRN #25 tablet 03/17/18 06/24/18 Unknown Rx 5-325 Tablet] Losartan [Cozaar] 50 mg PO QDAY 03/17/18 06/24/18 05/06/18 History 50mg Spironolactone [Aldactone] 25 mg PO QDAY 03/17/18 06/26/18 06/26/18 06:00 History ED Physical Exam - General General appearance: alert, in no apparent distress - Head Head exam: Present: atraumatic, normocephalic, normal inspection - Eye Eye exam: Present: normal appearance, PERRL - ENT ENT exam: Present: normal exam, normal orophraynx, mucous membranes moist - Neck Neck exam: Present: normal inspection, full ROM. Absent: tenderness, meningismus, lymphadenopathy, thyromegaly - Respiratory Respiratory exam: Present: normal lung sounds bilaterally - Cardiovascular Cardiovascular Exam: Present: regular rate, normal rhythm, normal heart sounds - GI/Abdominal GI/Abdominal exam: Present: soft, normal bowel sounds. Absent: distended, tenderness, guarding, rebound, rigid - Extremities Exam Extremities exam: Present: normal inspection, full ROM - Neurological Exam Neurological exam: Present: alert, altered, CN II-XII intact - Skin Skin exam: Present: warm, intact - Assessment Assessment Interval: Baseline - Level of Consciousness 1a. Level of Consciousness: alert/keenly responsive - LOC Questions 1b. LOC Questions: answers both correctly - LOC Command 1c. LOC Commands: performs tasks correctly - Best Gaze 2. Best Gaze: normal - Visual 3. Visual: no visual loss - Facial Palsy 4. Facial Palsy: normal symmetrical movement - Motor Arm 5a. Motor Arm Left: no drift 5b. Motor Arm Right: no drift - Motor Leg 6a. Motor Leg Left: no drift 6b. Motor Leg Right: no drift - Limb Ataxia 7. Limb Ataxia: absent - Sensory 8. Sensory: normal - Best Language 9. Best Language: no aphasia - Dysarthria 10. Dysarthria: normal - Extinction and Inattention 11. Extinction/Inattention: no abnormality - Scoring Total Score: 0 Stroke Severity: No Stroke Symptoms ED Course Vital Signs 09/25/18 09/25/18 09/25/18 18:49 18:53 19:00 Temperature 99.2 F Pulse Rate 82 Respiratory 16 Rate Blood Pressure 115/96 115/96 Blood Pressure 115/96 [Left] O2 Sat by Pulse 93 100 100 Oximetry 09/25/18 09/25/18 09/25/18 19:30 20:00 20:30 Temperature Pulse Rate Respiratory Rate Blood Pressure 110/66 116/68 118/62 Blood Pressure [Left] O2 Sat by Pulse 100 100 100 Oximetry - Lab Data Result diagrams: 09/25/18 18:56 09/25/18 18:56 Lab Results 09/25/18 09/25/18 09/25/18 Range/Units 18:56 18:56 18:56 WBC 4.9 (4.5-11.0) K/mm3 RBC 3.37 L (3.65-5.03) M/mm3 Hgb 10.5 L (11.8-15.2) gm/dl Hct 31.9 L (35.5-45.6) % MCV 95 H (84-94) fl MCH 31 (28-32) pg MCHC 33 (32-34) % RDW 14.9 (13.2-15.2) % Plt Count 44 L (140-440) K/mm3 Lymph % (Auto) 5.2 L (13.4-35.0) % Barber % (Auto) 7.9 H (0.0-7.3) % Eos % (Auto) 0.3 (0.0-4.3) % Baso % (Auto) 0.3 (0.0-1.8) % Lymph # 0.3 L (1.2-5.4) K/mm3 Barber # 0.4 (0.0-0.8) K/mm3 Eos # 0.0 (0.0-0.4) K/mm3 Baso # 0.0 (0.0-0.1) K/mm3 Seg Neutrophils % 86.3 H (40.0-70.0) % Seg Neutrophils # 4.2 (1.8-7.7) K/mm3 Sodium 134 L (137-145) mmol/L Potassium 2.9 L* (3.6-5.0) mmol/L Chloride 96.0 L (98-107) mmol/L Carbon Dioxide 25 (22-30) mmol/L Anion Gap 16 mmol/L BUN 17 (9-20) mg/dL Creatinine 3.3 H (0.8-1.5) mg/dL Estimated GFR 24 ml/min BUN/Creatinine Ratio 5 % Glucose 170 H (75-100) mg/dL Lactic Acid 2.20 H* (0.7-2.0) mmol/L Calcium 8.7 (8.4-10.2) mg/dL Total Bilirubin 0.30 (0.1-1.2) mg/dL Direct Bilirubin < 0.2 (0-0.2) mg/dL Indirect Bilirubin 0.1 mg/dL AST 10 (5-40) units/L ALT 5 L (7-56) units/L Alkaline Phosphatase 81 (35-129) units/L Ammonia (25-60) umol/L Total Protein 6.7 (6.3-8.2) g/dL Albumin 3.6 L (3.9-5) g/dL Albumin/Globulin Ratio 1.2 % Urine Color (Yellow) Urine Turbidity (Clear) Urine pH (5.0-7.0) Ur Specific [place] (1.003-1.030) Urine Protein (Negative) mg/dL Urine Glucose (UA) (Negative) mg/dL Urine Ketones (Negative) mg/dL Urine Blood (Negative) Urine Nitrite (Negative) Urine Bilirubin (Negative) Urine Urobilinogen (<2.0) mg/dL Ur Leukocyte Esterase (Negative) Urine WBC (Auto) (0.0-6.0) /HPF Urine RBC (Auto) (0.0-6.0) /HPF Urine Bacteria (Auto) (Negative) /HPF Urine WBC Clumps /HPF 09/25/18 09/25/18 09/25/18 Range/Units 18:56 20:26 Unknown WBC (4.5-11.0) K/mm3 RBC (3.65-5.03) M/mm3 Hgb (11.8-15.2) gm/dl Hct (35.5-45.6) % MCV (84-94) fl MCH (28-32) pg MCHC (32-34) % RDW (13.2-15.2) % Plt Count (140-440) K/mm3 Lymph % (Auto) (13.4-35.0) % Barber % (Auto) (0.0-7.3) % Eos % (Auto) (0.0-4.3) % Baso % (Auto) (0.0-1.8) % Lymph # (1.2-5.4) K/mm3 Barber # (0.0-0.8) K/mm3 Eos # (0.0-0.4) K/mm3 Baso # (0.0-0.1) K/mm3 Seg Neutrophils % (40.0-70.0) % Seg Neutrophils # (1.8-7.7) K/mm3 Sodium (137-145) mmol/L Potassium (3.6-5.0) mmol/L Chloride (98-107) mmol/L Carbon Dioxide (22-30) mmol/L Anion Gap mmol/L BUN (9-20) mg/dL Creatinine (0.8-1.5) mg/dL Estimated GFR ml/min BUN/Creatinine Ratio % Glucose (75-100) mg/dL Lactic Acid 2.60 H* (0.7-2.0) mmol/L Calcium (8.4-10.2) mg/dL Total Bilirubin (0.1-1.2) mg/dL Direct Bilirubin (0-0.2) mg/dL Indirect Bilirubin mg/dL AST (5-40) units/L ALT (7-56) units/L Alkaline Phosphatase (35-129) units/L Ammonia 20.0 L (25-60) umol/L Total Protein (6.3-8.2) g/dL Albumin (3.9-5) g/dL Albumin/Globulin Ratio % Urine Color Yellow (Yellow) Urine Turbidity Turbid (Clear) Urine pH 6.0 (5.0-7.0) Ur Specific [place] 1.015 (1.003-1.030) Urine Protein 100 mg/dl (Negative) mg/dL Urine Glucose (UA) 150 (Negative) mg/dL Urine Ketones Neg (Negative) mg/dL Urine Blood Mod (Negative) Urine Nitrite Neg (Negative) Urine Bilirubin Neg (Negative) Urine Urobilinogen < 2.0 (<2.0) mg/dL Ur Leukocyte Esterase Mod (Negative) Urine WBC (Auto) > 182.0 H (0.0-6.0) /HPF Urine RBC (Auto) 23.0 (0.0-6.0) /HPF Urine Bacteria (Auto) 1+ (Negative) /HPF Urine WBC Clumps 3+ /HPF - Radiology Data Radiology results: report reviewed - Medical Decision Making Patient is 53 years old male with history of COPD, end stage renal disease on hemodialysis, finished dialysis today. Patient is a alf home resident brought from dialysis center for evaluation of confusion and shortness of breath. EMS stated that confusion started yesterday after patient was ginette gnosed with UTI and started on Levaquin. Patient is alert, oriented to place, person but not time. No evidence of respiratory distress. Patient remained alert, oriented in place and person but not time. CT brain is negative for acute finding. Labs reviewed that is unremarkable except for potassium of 2.9. Potassium was not replaced since patient is a dialysis patient and this had dialysis today. Patient's symptoms is most likely related to UTI for which patient is receiving Levaquin by mouth. Patient will be discharged back to the snf in a stable clinical condition and advised to follow up with his primary care physician in the next 2-3 days and to return to the ER if symptoms are not improved. Critical care attestation.: If time is entered above; I have spent that time in minutes in the direct care of this critically ill patient, excluding procedure time. ED Disposition Clinical Impression: Altered mental status, ESRD (end stage renal disease) on dialysis, UTI (urinary tract infection) Disposition: - TO HOME OR SELFCARE Is pt being admited?: No Condition: Stable Instructions: Chronic Kidney Disease (ED), Urinary Tract Infection in Men (ED), Hypokalemia (ED) Referrals: PRIMARY CARE, [Primary Care Provider] - 3-5 Days
[2018-09-25 19:21] LABS: Basophils % (Auto) 0.3 % (0.0-1.8); Eosinophils % (Auto) 0.3 % (0.0-4.3); Hematocrit 31.9 % (35.5-45.6); Hemoglobin 10.5 gm/dl (11.8-15.2); Lymphocytes # (Auto) 0.3 K/mm3 (1.2-5.4); Lymphocytes % (Auto) 5.2 % (13.4-35.0); Mean Corpuscular HGB Conc 33 % (32-34); Mean Corpuscular Hemoglobin 31 pg (28-32); Mean Corpuscular Volume 95 fl (84-94); Monocytes # (Auto) 0.4 K/mm3 (0.0-0.8); Monocytes % (Auto) 7.9 % (0.0-7.3); Red Blood Count 3.37 M/mm3 (3.65-5.03); Red Cell Distribution Width 14.9 % (13.2-15.2)
--- NOTE | 2018-09-25 19:28 | XRay Report ---
CHEST 1 VIEW INDICATION: Altered Mental Status. COMPARISON: None. FINDINGS: Support devices: Right-sided central venous line tip projects over the SVC in expected position. Heart: Normal. Lungs/Pleura: No acute pulmonary or pleural findings. IMPRESSION: 1. No acute findings. Signer Name: Moe Keen MD Signed: 09/25/2018 7:24 PM Workstation Name: [id number]
[2018-09-25 19:36] LABS: Alanine Aminotransferase 5 units/L (7-56); Albumin 3.6 g/dL (3.9-5); BUN/Creatinine Ratio 5; Blood Urea Nitrogen 17 mg/dL (9-20); Calcium 8.7 mg/dL (8.4-10.2); Hemolysis Index 15
[2018-09-25 20:11] LABS: Bilirubin,Direct < 0.2 mg/dL (0-0.2)
[2018-09-25] MEDS ORDERED: K-DUR PO ONE (20:18)
[2018-09-25] MEDS ORDERED: NACL 0.9% 1000 ML 1,000 ML IV ONE (20:18)
[2018-09-25 20:35] LABS: Platelet Count 44 K/mm3 (140-440)
[2018-09-25] MEDS ORDERED: KCL 10MEQ/100ML 10 MEQ/100 ML BAG IV SCH (21:00)
--- NOTE | 2018-09-25 21:51 | Cat Scan Report ---
CT BRAIN: 09/25/2018 INDICATION / CLINICAL INFORMATION: Altered Mental Status. COMPARISON: None available. FINDINGS: BRAIN/INTRACRANIAL STRUCTURES: Unenhanced CT images of the brain dated straight no evidence of acute intracranial abnormality. Ventricles and sulci are slightly prominent in size for a patient of this age, consistent with modera te diffuse cerebral atrophy. There is no evidence of acute ischemic injury, hemorrhage, or mass. There are no abnormal extra-axial fluid collections. EXTRACRANIAL STRUCTURES: Unremarkable. IMPRESSION: No acute abnormality. Cerebral atrophy. All CT scans at this location are performed using dose reduction to ALARA by means of automated expos ure control. Signer Name: Bobby Kelly MD Signed: 09/25/2018 9:46 PM Workstation Name: [id number]
[2018-09-25 22:15] VITALS: BP 118/62
[2018-09-25 22:48] LABS: Bacteria,Urine 1+ /HPF (Negative); Bilirubin,Urine NEG (Negative); Blood,Urine MOD (Negative); Color,Urine Yellow (Yellow); Urobilinogen,Urine < 2.0 mg/dL (<2.0)
[2018-09-25 22:49] LABS: WBC,Urine > 182.0 /HPF (0.0-6.0)
== END 2018-09-26 00:35 | disposition home or self-care (01) ==
LOC: ED 18:43
DX: E11.22 Type 2 diabetes mellitus with diabetic chronic kidney disease (principal); I12.0 Hypertensive chronic kidney disease with stage 5 chronic kidney disease or end stage renal disease; N18.6 End stage renal disease; N39.0 Urinary tract infection, site not specified; R41.82 Altered mental status, unspecified; R06.02 Shortness of breath; Z99.2 Dependence on renal dialysis; Z79.4 Long term (current) use of insulin; Z87.891 Personal history of nicotine dependence; Z79.899 Other long term (current) drug therapy
CPT/HCPCS: 70450; 71045; 80048; 80076; 81001; 82140; 85025; 87040; 93005; 93010; 96360; 99285; J7030

== ENCOUNTER 2018-12-18 13:36 | Inpatient (IN) | payer MEDICARE ==
--- NOTE | 2018-12-18 14:33 | Emergency Department Report ---
ED Recheck HPI - General Chief Complaint: Recheck/Abnormal Lab/Rx Stated Complaint: INFECTION IN BLOOD Time Seen by Provider: 12/18/18 14:29 Source: patient Mode of arrival: Stretcher Limitations: No Limitations - History of Present Illness Initial Comments: She is a 53-year-old male that presents emergency room with complaints of positive blood cultures. Patient states that he was at dialysis a few days ago and had some blood cultures drawn from his dialysis catheter and both were positive. Patient was sent here from his [facility] for further evaluation treatment. Patient denies fever and chills. Patient denies pain. Patient denies symptoms. Patient states she's feeling normal. She states that both cultures were drawn from his dialysis catheter. A report received from dialysis. Report reviewed. The report states that the patient had blood cultures on July 02 and 06/21/2018 and both were negative. Patient also had blood cultures done on 12/17/2018 and blood culture #1 was positive for gram- negative rods and blood culture #2 was positive for gram-positive cocci in pairs and chains. Patient's raisin separator operator is Dr. Maya. Home documents reviewed. Patient's primary care at the [facility] is Dr. Harvey. ACEVEDO Complaint: abnormal lab -: Sudden Returns Today for: CBOAL Symptoms Since Prior Visit: no new symptoms Context: called for abnorm lab res, caled for pos culture Associated Symptoms: none - Related Data Home Medications Medication Instructions Recorded Confirmed Last Taken Acidophilus 175 mg Capsule 100 mg PO BID 07/08/17 12/18/18 06/26/18 06:00 100 mg Benadryl CAP 25 mg PO Q12H PRN 07/08/17 12/18/18 03/16/18 Folic Acid 1 mg PO DAILY 07/08/17 12/18/18 06/26/18 06:00 Lantus VIAL 20 units SQ QHS 07/08/17 12/18/18 06/25/18 21:00 Lomotil 2.5-0.025 mg Tablet 2.5 mg PO Q6H PRN 07/08/17 12/18/18 03/16/18 Metoprolol Tartrate 25 mg PO Q12H 07/08/17 12/18/18 06/26/18 06:00 25 mg NovoLOG Flexpen 3 units SQ AC 07/08/17 12/18/18 06/25/18 21:00 Phoslo 667 mg PO TID 07/08/17 12/18/18 06/25/18 21:00 667 mg Remeron 15 mg PO QHS 07/08/17 12/18/18 06/25/18 21:00 15 mg Synthroid 25 mcg PO QAM 07/08/17 12/18/18 06/26/18 06:00 25 mcg Thiamine HCl 100 mg PO DAILY 07/08/17 12/18/18 06/26/18 06:00 100 mg Losartan [Cozaar] 50 mg PO QDAY 03/17/18 12/18/18 05/06/18 50 mg Spironolactone [Aldactone] 50 mg PO QDAY 03/17/18 12/18/18 06/26/18 06:00 25 mg Allergies Allergy/AdvReac Type Severity Reaction Status Date / Time No Known Drug Allergies Allergy Unknown Verified 06/24/18 10:40 ED Review of Systems ROS: Stated complaint: INFECTION IN BLOOD Other details as noted in HPI Constitutional: denies: chills, fever Eyes: denies: eye pain, eye discharge, vision change ENT: denies: ear pain, throat pain Respiratory: denies: cough, shortness of breath, wheezing Cardiovascular: denies: chest pain, palpitations Endocrine: no symptoms reported Gastrointestinal: denies: abdominal pain, nausea, diarrhea Genitourinary: denies: urgency, dysuria Musculoskeletal: denies: back pain, joint swelling, arthralgia Skin: denies: rash, lesions Neurological: denies: headache, weakness, paresthesias Psychiatric: denies: anxiety, depression Hematological/Lymphatic: denies: easy bleeding, easy bruising ED Past Medical Hx - Past Medical History Previous Medical History?: Yes Hx Hypertension: Yes Hx Heart Attack/AMI: No Hx Congestive Heart Failure: No Hx Diabetes: Yes Hx Renal Disease: Yes Hx Asthma: No Hx COPD: No Additional medical history: unable to walk due to weak leg muscles - Surgical History Past Surgical History?: Yes Additional Surgical History: vas cath to right chest wall - Social History Smoking Status: Never Smoker Substance Use Type: None - Medications Home Medications: Home Medications Medication Instructions Recorded Confirmed Last Taken Type Acidophilus 175 mg Capsule 100 mg PO BID 07/08/17 12/18/18 06/26/18 06:00 History 100 mg Benadryl CAP 25 mg PO Q12H PRN 07/08/17 12/18/18 03/16/18 History Folic Acid 1 mg PO DAILY 07/08/17 12/18/18 06/26/18 06:00 History Lantus VIAL 20 units SQ QHS 07/08/17 12/18/18 06/25/18 21:00 History Lomotil 2.5-0.025 mg Tablet 2.5 mg PO Q6H PRN 07/08/17 12/18/18 03/16/18 History Metoprolol Tartrate 25 mg PO Q12H 07/08/17 12/18/18 06/26/18 06:00 History 25 mg NovoLOG Flexpen 3 units SQ AC 07/08/17 12/18/18 06/25/18 21:00 History Phoslo 667 mg PO TID 07/08/17 12/18/18 06/25/18 21:00 History 667 mg Remeron 15 mg PO QHS 07/08/17 12/18/18 06/25/18 21:00 History 15 mg Synthroid 25 mcg PO QAM 07/08/17 12/18/18 06/26/18 06:00 History 25 mcg Thiamine HCl 100 mg PO DAILY 07/08/17 12/18/18 06/26/18 06:00 History 100 mg Losartan [Cozaar] 50 mg PO QDAY 03/17/18 12/18/18 05/06/18 History 50 mg Spironolactone [Aldactone] 50 mg PO QDAY 03/17/18 12/18/18 06/26/18 06:00 History 25 mg ED Physical Exam - General Limitations: No Limitations, Physical Limitation General appearance: alert, in no apparent distress - Head Head exam: Present: atraumatic, normocephalic - Eye Eye exam: Present: normal appearance - ENT ENT exam: Present: mucous membranes moist - Neck Neck exam: Present: normal inspection - Respiratory Respiratory exam: Present: normal lung sounds bilaterally. Absent: respiratory distress - Cardiovascular Cardiovascular Exam: Present: regular rate, normal rhythm. Absent: systolic murmur, diastolic murmur, rubs, gallop - GI/Abdominal GI/Abdominal exam: Present: soft, normal bowel sounds - Rectal Rectal exam: Present: deferred - Extremities Exam Extremities exam: Present: normal inspection - Back Exam Back exam: Present: normal inspection - Neurological Exam Neurological exam: Present: alert, oriented X3 - Psychiatric Psychiatric exam: Present: normal affect, normal mood - Skin Skin exam: Present: warm, dry, intact, normal color. Absent: rash ED Course Vital Signs 12/18/18 12/18/18 12/18/18 13:47 16:31 18:55 Temperature 97.7 F 97.9 F Pulse Rate 74 67 66 Respiratory 16 16 16 Rate Blood Pressure 141/80 147/84 Blood Pressure 151/77 [Left] O2 Sat by Pulse 100 97 99 Oximetry - Reevaluation(s) Reevaluation #1: I discussed all results with patient. I discussed plan of care with patient. Patient agrees with plan of care and admission. Patient will be admitted to the hospitalist service. 12/18/18 15:47 - Consultations Consultation #1: Hospitalist consult for admission. Hospitalist to admit patient. Bridge orders placed. 12/18/18 15:47 Consultation #2: Vascular surgery paged 12/18/18 15:49 I discussed case with Dr. Valadez, vascular surgery. Vascular wants patient to be given IV antibiotics and admitted to the hospital service. Vascular surgery saw the patient in the ER 12/18/18 16:00 Consultation #3: Neurology paged 12/18/18 15:49 I discussed case with Dr. Ontiveros. Dr. Ontiveros states he will see the patient the morning. 12/18/18 16:23 ED Recheck MDM - Core Measures AMI Core Measures Followed: Yes - Differential Diagnosis Recheck of Abnormal Lab, Admission for Abnormal La - Medical Decision Making Patient is a 53-year-old male that presents emergency room for positive blood cultures done at dialysis. Patient had his blood cultures drawn a couple days ago from his Vas-Cath in his right chest. Patient admitted to the hospitalist service. Patient's labs unremarkable and consistent with chronic kidney disease on dialysis. Vascular consult. Nephrology consult. Critical Care Time: Yes Critical care time in (mins) excluding proc time.: 35 Critical care attestation.: If time is entered above; I have spent that time in minutes in the direct care of this critically ill patient, excluding procedure time. Critical Care Time: 35 minutes ED Disposition Clinical Impression: Positive blood culture, Bacteremia, ESRD (end stage renal disease) on dialysis, ESRD on hemodialysis Anemia in chronic kidney disease Qualifiers: Chronic kidney disease stage: on chronic dialysis Qualified Code(s): N18.6 - End stage renal disease Infection of vascular catheter Qualifiers: Encounter type: initial encounter Qualified Code(s): T82.7XXA - Infection and inflammatory reaction due to other cardiac and vascular devices, implants and grafts, initial encounter Disposition: 09 OP ADMIT IP TO THIS HOSP Is pt being admited?: Yes Does the pt Need Aspirin: No Condition: Critical Time of Disposition: 16:02
[2018-12-18 14:58] LABS: Basophils % (Auto) 0.5 % (0.0-1.8); Eosinophils # (Auto) 0.1 K/mm3 (0.0-0.4); Eosinophils % (Auto) 0.9 % (0.0-4.3); Hematocrit 33.7 % (35.5-45.6); Hemoglobin 10.5 gm/dl (11.8-15.2); Lymphocytes # (Auto) 0.5 K/mm3 (1.2-5.4); Lymphocytes % (Auto) 7.5 % (13.4-35.0); Mean Corpuscular HGB Conc 31 % (32-34); Mean Corpuscular Volume 93 fl (84-94); Monocytes # (Auto) 0.4 K/mm3 (0.0-0.8); Monocytes % (Auto) 6.7 % (0.0-7.3); Red Blood Count 3.63 M/mm3 (3.65-5.03)
[2018-12-18 15:18] LABS: Platelet Count 36 K/mm3 (140-440)
[2018-12-18 15:20] LABS: Albumin 3.2 g/dL (3.9-5); Calcium 7.7 mg/dL (8.4-10.2)
[2018-12-18] MEDS ORDERED: MAXIPIME/NS 2 GM/100 ML 2 GM/100 ML BAG IV ONE (15:50)
--- NOTE | 2018-12-18 16:08 | Consultation ---
History of Present Illness - Reason for Consult Consult date: 12/18/18 bacteremia - History of Present Illness Patient with a history of end-stage renal disease on hemodialysis Saturday and Saturday. Cultures drawn on 12/17/2018 positive for gram-positive cocci as well as gram-negative rods. The patient is afebrile, vital signs are stable, no white count. On examination, the catheter track demonstrates no erythema, exudates or tenderness. Past History Past Medical History: dialysis, ESRD Past Surgical History: Other (failed left upper arm AV graft placement) Medications and Allergies Allergies Allergy/AdvReac Type Severity Reaction Status Date / Time No Known Drug Allergies Allergy Unknown Verified 06/24/18 10:40 Home Medications Medication Instructions Recorded Confirmed Last Taken Type Acidophilus 175 mg Capsule 100 mg PO BID 07/08/17 06/26/18 06/26/18 06:00 History 100 mg Benadryl CAP 25 mg PO Q12H PRN 07/08/17 06/24/18 03/16/18 History Folic Acid 1 mg PO DAILY 07/08/17 06/26/18 06/26/18 06:00 History Lantus VIAL 10 units SQ QHS 07/08/17 06/26/18 06/25/18 21:00 History Lomotil 2.5-0.025 mg Tablet 2.5 mg PO Q6H PRN 07/08/17 06/24/18 03/16/18 History Metoprolol Tartrate 25 mg PO Q12H 07/08/17 06/26/18 06/26/18 06:00 History 25 mg NovoLOG Flexpen 3 units SQ AC 07/08/17 06/26/18 06/25/18 21:00 History Phoslo 667 mg PO TID 07/08/17 06/26/18 06/25/18 21:00 History 667 mg Remeron 15 mg PO QHS 07/08/17 06/26/18 06/25/18 21:00 History 15 mg Synthroid 25 mcg PO QAM 07/08/17 06/26/18 06/26/18 06:00 History 25 mcg Thiamine HCl 100 mg PO DAILY 07/08/17 06/26/18 06/26/18 06:00 History 100 mg Ergocalciferol [Vitamin D2] 1 cap PO 2XW 03/17/18 06/26/18 06/25/18 06:00 History HYDROcodone/ACETAMINOPHEN [[place] 1 each PO Q4-6H PRN #25 tablet 03/17/18 06/24/18 Unknown Rx 5-325 Tablet] Losartan [Cozaar] 50 mg PO QDAY 03/17/18 06/24/18 05/06/18 History 50 mg Spironolactone [Aldactone] 25 mg PO QDAY 03/17/18 06/26/18 06/26/18 06:00 History 25 mg Active Meds: Active Medications Cefepime HCl (Maxipime/Ns 2 Gm/100 Ml) 2 gm in 100 mls @ 200 mls/hr IV ONCE ONE; Protocol Stop: 12/18/18 16:19 Review of Systems All systems: negative Exam - Constitutional Vitals: Temp Pulse Resp BP Pulse Ox 97.7 F 74 16 141/80 100 12/18/18 13:47 12/18/18 13:47 12/18/18 13:47 12/18/18 13:47 12/18/18 13:47 General appearance: Present: no acute distress - EENT Eyes: Present: EOM intact ENT: hearing intact - Neck Neck: Present: supple, normal ROM - Respiratory Respiratory effort: normal - Extremities Extremities: Full ROM - Abdominal General gastrointestinal: Present: deferred Male genitourinary: Present: deferred - Rectal Rectal Exam: deferred - Integumentary Integumentary: Present: clear, warm - Psychiatric Psychiatric: cooperative Results - Labs CBC & Chem 7: 12/18/18 14:41 12/18/18 14:41 Labs: Abnormal lab results 12/18/18 12/18/18 Range/Units 14:41 14:41 RBC 3.63 L (3.65-5.03) M/mm3 Hgb 10.5 L (11.8-15.2) gm/dl Hct 33.7 L (35.5-45.6) % MCHC 31 L (32-34) % RDW 17.0 H (13.2-15.2) % Plt Count 36 L (140-440) K/mm3 Lymph % (Auto) 7.5 L (13.4-35.0) % Lymph # 0.5 L (1.2-5.4) K/mm3 Seg Neutrophils % 84.4 H (40.0-70.0) % Sodium 128 L (137-145) mmol/L Chloride 94.5 L (98-107) mmol/L Carbon Dioxide 13 L (22-30) mmol/L BUN 65 H (9-20) mg/dL Creatinine 7.0 H (0.8-1.5) mg/dL Glucose 384 H (75-100) mg/dL Calcium 7.7 L (8.4-10.2) mg/dL ALT 5 L (7-56) units/L Albumin 3.2 L (3.9-5) g/dL Assessment and Plan The patient will need to be brought into the hospital and started on broad spectrum antibiotics. We'll plan for dialysis catheter exchange over a guidewire tomorrow.
[2018-12-18] MEDS ORDERED: SODIUM CHLORIDE FLUSH SYRINGE 10 ML IV PRN (21:11)
[2018-12-18] MEDS ORDERED: TYLENOL PO PRN (21:11)
[2018-12-18] MEDS ORDERED: DILAUDID IV PRN (21:11)
[2018-12-18] MEDS ORDERED: ZOFRAN IV PRN (21:11)
[2018-12-18] MEDS ORDERED: VANCOMYCIN PHARMACY TO DOSE IV SCH (22:00)
[2018-12-18] MEDS ORDERED: VANCOMYCIN/NS 1 GM/250 ML 1 GM/250 ML BAG IV ONE (22:00)
[2018-12-18] MEDS ORDERED: MAXIPIME/NS 1 GM/100 ML 1 GM/100 ML BAG IV SCH (22:00)
[2018-12-18] MEDS: SODIUM CHLORIDE FLUSH SYRINGE 10 ML IV SCH (22:49)
[2018-12-18] MEDS: PEPCID PO SCH (22:49)
[2018-12-19 06:40] LABS: Basophils # (Auto) 0.1 K/mm3 (0.0-0.1); Basophils % (Auto) 1.9 % (0.0-1.8); Eosinophils # (Auto) 0.1 K/mm3 (0.0-0.4); Hematocrit 31.9 % (35.5-45.6); Hemoglobin 10.5 gm/dl (11.8-15.2); Lymphocytes # (Auto) 0.4 K/mm3 (1.2-5.4); Lymphocytes % (Auto) 8.3 % (13.4-35.0); Mean Corpuscular HGB Conc 33 % (32-34); Mean Corpuscular Volume 91 fl (84-94); Monocytes # (Auto) 0.2 K/mm3 (0.0-0.8); Monocytes % (Auto) 4.8 % (0.0-7.3); Red Cell Distribution Width 16.8 % (13.2-15.2)
[2018-12-19 06:51] LABS: Platelet Count 35 K/mm3 (140-440)
[2018-12-19 06:52] LABS: Albumin 3.1 g/dL (3.9-5); BUN/Creatinine Ratio 9; Blood Urea Nitrogen 68 mg/dL (9-20); Calcium 7.6 mg/dL (8.4-10.2); Hemolysis Index 4
[2018-12-19 07:02] LABS: Alanine Aminotransferase < 5 units/L (7-56)
--- NOTE | 2018-12-19 07:07 | Event Note ---
Date: 12/18/18 See H/p in reports Vas cath infection Bacteremia
[2018-12-19] MEDS ORDERED: ATROPINE PO PRN (08:03)
[2018-12-19] MEDS ORDERED: DIPHENOXYLATE PO PRN (08:03)
[2018-12-19] MEDS ORDERED: NON-FORMULARY (Metoprolol Tartrate 25 MG) PO SCH (08:15)
--- NOTE | 2018-12-19 08:40 | Progress Note ---
Assessment and Plan Assessment and plan: Patient is a 53 yo man with a history of ESRD on hemodialysis who presented with positive blood culures of positive for gram-positive cocci as well as gram- negative rods drawn on 12/17/2018 . The patient is afebrile, vital signs are stable, no white count. On examination, the catheter track demonstrates no erythema, exudates or tenderness. ESRD Positive blood cultures Line infection suspect Hypertension plan: remove HD line, treat with abx History Interval history: f/u Line Infection Hospitalist Physical - Constitutional Vitals: Temp Pulse Resp BP Pulse Ox 97.5 F L 65 16 125/70 98 12/19/18 06:10 12/19/18 06:10 12/19/18 06:10 12/19/18 06:10 12/19/18 06:10 General appearance: Present: no acute distress - EENT ENT: hearing intact - Respiratory Respiratory effort: normal Respiratory: right: CTA - Cardiovascular Rhythm: regular Heart Sounds: Present: S1 & S2 - Abdominal General gastrointestinal: soft, non-tender, non-distended, normal bowel sounds - Psychiatric Psychiatric: appropriate mood/affect - Neurologic Neurologic: CNII-XII intact Results - Labs CBC & Chem 7: 12/19/18 05:50 12/19/18 05:50 Labs: Laboratory Last Values WBC 4.8 K/mm3 (4.5-11.0) 12/19/18 05:50 RBC 3.50 M/mm3 (3.65-5.03) L 12/19/18 05:50 Hgb 10.5 gm/dl (11.8-15.2) L 12/19/18 05:50 Hct 31.9 % (35.5-45.6) L 12/19/18 05:50 MCV 91 fl (84-94) 12/19/18 05:50 MCH 30 pg (28-32) 12/19/18 05:50 MCHC 33 % (32-34) 12/19/18 05:50 RDW 16.8 % (13.2-15.2) H 12/19/18 05:50 Plt Count 35 K/mm3 (140-440) L 12/19/18 05:50 Lymph % (Auto) 8.3 % (13.4-35.0) L 12/19/18 05:50 [place] % (Auto) 4.8 % (0.0-7.3) 12/19/18 05:50 Eos % (Auto) 2.0 % (0.0-4.3) 12/19/18 05:50 Baso % (Auto) 1.9 % (0.0-1.8) H 12/19/18 05:50 Lymph # 0.4 K/mm3 (1.2-5.4) L 12/19/18 05:50 [place] # 0.2 K/mm3 (0.0-0.8) 12/19/18 05:50 Eos # 0.1 K/mm3 (0.0-0.4) 12/19/18 05:50 Baso # 0.1 K/mm3 (0.0-0.1) 12/19/18 05:50 Seg Neutrophils % 83.0 % (40.0-70.0) H 12/19/18 05:50 Seg Neutrophils # 4.0 K/mm3 (1.8-7.7) 12/19/18 05:50 Sodium 130 mmol/L (137-145) L 12/19/18 05:50 Potassium 3.2 mmol/L (3.6-5.0) L 12/19/18 05:50 Chloride 99.6 mmol/L (98-107) 12/19/18 05:50 Carbon Dioxide 15 mmol/L (22-30) L 12/19/18 05:50 Anion Gap 19 mmol/L 12/19/18 05:50 BUN 68 mg/dL (9-20) H 12/19/18 05:50 Creatinine 7.3 mg/dL (0.8-1.5) H 12/19/18 05:50 Estimated GFR 10 ml/min 12/19/18 05:50 BUN/Creatinine Ratio 9 % 12/19/18 05:50 Glucose 188 mg/dL (75-100) H 12/19/18 05:50 Hemoglobin A1c 6.2 % (4-6) H 12/18/18 14:41 Lactic Acid 1.20 mmol/L (0.7-2.0) 12/18/18 18:50 Calcium 7.6 mg/dL (8.4-10.2) L 12/19/18 05:50 Total Bilirubin 0.40 mg/dL (0.1-1.2) 12/19/18 05:50 AST 6 units/L (5-40) 12/19/18 05:50 ALT < 5 units/L (7-56) L 12/19/18 05:50 Alkaline Phosphatase 71 units/L (35-129) 12/19/18 05:50 Total Protein 5.9 g/dL (6.3-8.2) L 12/19/18 05:50 Albumin 3.1 g/dL (3.9-5) L 12/19/18 05:50 Albumin/Globulin Ratio 1.1 % 12/19/18 05:50 Active Medications - Current Medications Current Medications: Generic Name Dose Route Start Last Admin Trade Name Freq PRN Reason Stop Dose Admin Acetaminophen 650 mg 12/18/18 21:11 Tylenol PO Q4H PRN Pain MILD(1-3)/Fever >100.5/WONG Famotidine 10 mg 12/18/18 22:00 12/18/18 22:49 Pepcid PO 10 mg BID MAGDALENE Administration Hydromorphone HCl 0.5 mg 12/18/18 21:11 Dilaudid IV Q3H PRN Pain , Severe (7-10) Cefepime HCl 1 gm in 100 mls @ 200 mls/hr 12/19/18 16:00 Maxipime/Ns 1 Gm/100 Ml IV Q24H MAGDALENE Protocol Insulin Human Lispro 0 unit 12/19/18 11:30 Humalog SUB-Q ACHS MAGDALENE Protocol Losartan Potassium 50 mg 12/19/18 10:00 Cozaar PO QDAY MAGDALENE Miscellaneous Medication 1 mg 12/19/18 10:00 Folic Acid PO DAILY MAGDALENE Miscellaneous Medication 20 units 12/19/18 22:00 Lantus Vial SQ QHS MAGDALENE Miscellaneous Medication 2.5 mg 12/19/18 08:03 Lomotil 2.5-0.025 Mg Tablet PO Q6H PRN Diarrhea Miscellaneous Medication 25 mg 12/19/18 08:15 Metoprolol Tartrate PO Q12H MAGDALENE Miscellaneous Medication 667 mg 12/19/18 14:00 Phoslo PO TID MAGDALENE Miscellaneous Medication 15 mg 12/19/18 22:00 Remeron PO 12/21/18 23:59 QHS MAGDALENE Miscellaneous Medication 25 mcg 12/19/18 10:00 Synthroid PO QAM MAGDALENE Miscellaneous Medication 100 mg 12/19/18 10:00 Thiamine Hcl PO DAILY [facility] Ondansetron HCl 4 mg 12/18/18 21:11 Zofran IV Q3H PRN Nausea And Vomiting Sodium Chloride 10 ml 12/18/18 22:00 12/18/18 22:49 Sodium Chloride Flush Syringe 10 Ml IV 10 ml BID MAGDALENE Administration Sodium Chloride 10 ml 12/18/18 21:11 Sodium Chloride Flush Syringe 10 Ml IV PRN PRN LINE FLUSH Spironolactone 50 mg 12/19/18 10:00 Aldactone PO QDAY MAGDALENE
--- NOTE | 2018-12-19 09:48 | Consultation ---
History of Present Illness - Reason for Consult Consult date: 12/19/18 end stage renal disease Requesting physician: TOMMY BAILEY - History of Present Illness 53-year-old male that presents emergency room with complaints of positive blood cultures. Patient states that he was at dialysis a few days ago and had some blood cultures drawn from his dialysis catheter and both were positive. Patient was sent here from his sn[facility] for further evaluation treatment. Patient denies fever and chills. Patient denies pain. Patient denies symptoms. Patient states she's feeling normal. She states that both cultures were drawn from his dialysis catheter. A report received from dialysis. Report reviewed. The report states that the patient had blood cultures on July 02 and 06/21/2018 and both were negative. Patient also had blood cultures done on 12/17/2018 and blood culture #1 was positive for gram-negative rods and blood culture #2 was positive for gram-positive cocci in pairs and chains. Patient's chassis engineer is Dr. Maya. Home documents reviewed. Patient's primary care at the snf is Dr. Harvey. ACEVEDO Complaint: abnormal lab -: Sudden Returns Today for: CBOAL Symptoms Since Prior Visit: no new symptoms Context: called for abnorm lab res, caled for pos culture Associated Symptoms: none ROS: Stated complaint: INFECTION IN BLOOD Other details as noted in HPI Constitutional: denies: chills, fever Eyes: denies: eye pain, eye discharge, vision change ENT: denies: ear pain, throat pain Respiratory: denies: cough, shortness of breath, wheezing Cardiovascular: denies: chest pain, palpitations Endocrine: no symptoms reported Gastrointestinal: denies: abdominal pain, nausea, diarrhea Genitourinary: denies: urgency, dysuria Musculoskeletal: denies: back pain, joint swelling, arthralgia Skin: denies: rash, lesions Neurological: denies: headache, weakness, paresthesias Psychiatric: denies: anxiety, depression Hematological/Lymphatic: denies: easy bleeding, easy bruising - Past Medical History Previous Medical History?: Yes Hx Hypertension: Yes Hx Heart Attack/AMI: No Hx Congestive Heart Failure: No Hx Diabetes: Yes Hx Renal Disease: Yes Hx Asthma: No Hx COPD: No Additional medical history: unable to walk due to weak leg muscles - Surgical History Past Surgical History?: Yes Additional Surgical History: vas cath to right chest wall - Social History Smoking Status: Never Smoker Substance Use Type: None Past History Past Medical History: dialysis, ESRD Past Surgical History: Other (failed left upper arm AV graft placement) Medications and Allergies Allergies Allergy/AdvReac Type Severity Reaction Status Date / Time No Known Drug Allergies Allergy Unknown Verified 06/24/18 10:40 Home Medications Medication Instructions Recorded Confirmed Last Taken Type Acidophilus 175 mg Capsule 100 mg PO BID 07/08/17 12/18/18 06/26/18 06:00 History 100 mg Benadryl CAP 25 mg PO Q12H PRN 07/08/17 12/18/18 03/16/18 History Folic Acid 1 mg PO DAILY 07/08/17 12/18/18 06/26/18 06:00 History Lantus VIAL 20 units SQ QHS 07/08/17 12/18/18 06/25/18 21:00 History Lomotil 2.5-0.025 mg Tablet 2.5 mg PO Q6H PRN 07/08/17 12/18/18 03/16/18 History Metoprolol Tartrate 25 mg PO Q12H 07/08/17 12/18/18 06/26/18 06:00 History 25 mg NovoLOG Flexpen 3 units SQ AC 07/08/17 12/18/18 06/25/18 21:00 History Phoslo 667 mg PO TID 07/08/17 12/18/18 06/25/18 21:00 History 667 mg Remeron 15 mg PO QHS 07/08/17 12/18/18 06/25/18 21:00 History 15 mg Synthroid 25 mcg PO QAM 07/08/17 12/18/18 06/26/18 06:00 History 25 mcg Thiamine HCl 100 mg PO DAILY 07/08/17 12/18/18 06/26/18 06:00 History 100 mg Losartan [Cozaar] 50 mg PO QDAY 03/17/18 12/18/18 05/06/18 History 50 mg Spironolactone [Aldactone] 50 mg PO QDAY 03/17/18 12/18/18 06/26/18 06:00 History 25 mg Active Meds: Active Medications Acetaminophen (Tylenol) 650 mg PO Q4H PRN PRN Reason: Pain MILD(1-3)/Fever >100.5/WONG Diphenoxylate HCl/Atropine (Lomotil) 1 tab PO Q6HR PRN PRN Reason: Diarrhea Famotidine (Pepcid) 10 mg PO BID [facility] Last Admin: 12/18/18 22:49 Dose: 10 mg Documented by: Folic Acid (Folvite) 1 mg PO DAILY [facility] Hydromorphone HCl (Dilaudid) 0.5 mg IV Q3H PRN PRN Reason: Pain , Severe (7-10) Cefepime HCl (Maxipime/Ns 1 Gm/100 Ml) 1 gm in 100 mls @ 200 mls/hr IV Q24H [facility]; Protocol Insulin Glargine (Lantus) 20 units SUB-Q QHS [facility] Insulin Human Lispro (Humalog) 0 unit SUB-Q ACHS [facility]; Protocol Levothyroxine Sodium (Synthroid) 25 mcg PO DAILY@0600 [facility] Losartan Potassium (Cozaar) 50 mg PO QDAY [facility] Metoprolol Tartrate (Lopressor) 25 mg PO BID [facility] Mirtazapine (Remeron) 15 mg PO QHS [facility] Miscellaneous Medication (Phoslo) 667 mg PO TID [facility] Ondansetron HCl (Zofran) 4 mg IV Q3H PRN PRN Reason: Nausea And Vomiting Sodium Chloride (Sodium Chloride Flush Syringe 10 Ml) 10 ml IV BID [facility] Last Admin: 12/18/18 22:49 Dose: 10 ml Documented by: Sodium Chloride (Sodium Chloride Flush Syringe 10 Ml) 10 ml IV PRN PRN PRN Reason: LINE FLUSH Spironolactone (Aldactone) 50 mg PO QDAY [facility] Thiamine HCl (Vitamin B-1) 100 mg PO QDAY [facility] Exam - Vital Signs Vital signs: Vital Signs Temp Pulse Resp BP Pulse Ox 97.7 F 74 16 141/80 100 12/18/18 13:47 12/18/18 13:47 12/18/18 13:47 12/18/18 13:47 12/18/18 13:47 - Physical Exam Narrative exam: - General Limitations: No Limitations, Physical Limitation General appearance: alert, in no apparent distress - Head Head exam: Present: atraumatic, normocephalic - Eye Eye exam: Present: normal appearance - ENT ENT exam: Present: mucous membranes moist - Neck Neck exam: Present: normal inspection - Respiratory Respiratory exam: Present: normal lung sounds bilaterally. Absent: respiratory distress - Cardiovascular Cardiovascular Exam: Present: regular rate, normal rhythm. Absent: systolic murmur, diastolic murmur, rubs, gallop - GI/Abdominal GI/Abdominal exam: Present: soft, normal bowel sounds - Rectal Rectal exam: Present: deferred - Extremities Exam Extremities exam: Present: normal inspection - Back Exam Back exam: Present: normal inspection - Neurological Exam Neurological exam: Present: alert, oriented X3 - Psychiatric Psychiatric exam: Present: normal affect, normal mood - Skin Skin exam: Present: warm, dry, intact, normal color. Absent: rash Results - Lab Results 12/19/18 05:50 12/19/18 05:50 Most recent lab results Calcium 7.6 mg/dL (8.4-10.2) L 12/19/18 05:50 Assessment and Plan mpression * ESRD * bacteremia * s/p infected AVG s/p excision * Hypertension * Anemia secondary to ESRD * Type II DM * Thrombocytopenia Recommendation * HD q TTS schedule * UF as tolerated * plans for perm cath exchange noted * iv abx * ID to see for gram negative bacteremia * s/p excision of av graft * Renal diet * Binders with meals * Epogen TIW prn * Adjust diet and meds for ESRD
[2018-12-19] MEDS ORDERED: THIAMINE HCL 100 MG PO SCH (10:00)
[2018-12-19] MEDS ORDERED: ALBURX 25% (ALBUMIN) IV PRN (10:00)
[2018-12-19] MEDS ORDERED: PROCRIT IV PRN (10:00)
[2018-12-19] MEDS ORDERED: NACL 0.9% 100 ML IV PRN ×2 (10:00→21:06)
[2018-12-19] MEDS ORDERED: SYNTHROID 25 MCG PO SCH (10:00)
[2018-12-19] MEDS ORDERED: NON-FORMULARY (Folic Acid 1 MG) PO SCH (10:00)
--- NOTE | 2018-12-19 10:54 | History and Physical Report ---
CHIEF COMPLAINT: Positive blood cultures. HISTORY OF PRESENT ILLNESS: A 53-year-old male sent from dialysis center for positive blood cultures. The patient ____. No fever and chills. The patient's blood cultures came positive for gram-negative rods and gram-positive cocci. Hence, the patient is being admitted. No fever or chills. The patient's primary care is Dr. King and spudder is Dr. Maya. 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 Unable to walk because of weak leg muscles. PAST SURGICAL HISTORY: Vascath in the right chest wall. SOCIAL HISTORY: Does not smoke. FAMILY HISTORY: Hypertension. CURRENT MEDICATIONS: Lantus at bedtime, metoprolol 25 q. 12 hours, PhosLo 667 mg p.o. t.i.d., Synthroid 25 mcg p.o. daily. REVIEW OF SYSTEMS: Significant for no fever or chills. No shortness of breath. Feels weak. Poor appetite. Difficulty walking. PHYSICAL EXAMINATION: GENERAL: Middle-aged male, looks weak. VITAL SIGNS: Blood pressure is 134/86, temperature 98.4, pulse 78, respirations 16, sats are 92 percent. HEENT: Unremarkable. Pupils equal and reactive. NECK: Supple. No lymphadenopathy, no thyromegaly. LUNGS: Clear to auscultation and percussion. Good air entry. CARDIOVASCULAR: S1, S2 heard. No gallop, no murmur, no rub. Apical impulse in left fifth intercostal space and midclavicular line. Chest wall has a right Vascath. ABDOMEN: Soft and benign. No hepatosplenomegaly. No guarding, no rigidity. Hernial orifices are normal. EXTREMITIES: Good pedal pulses. No pedal edema. CENTRAL NERVOUS SYSTEM: Alert and oriented x 4, nonfocal exam. SKIN: Normal. LABORATORY DATA: The patient has positive blood cultures with gram negative rods and gram positive cocci. White count is 6300, H and H is 10.5 and 33.7, platelet count is 36,000. Sodium is 128, potassium is 3.6, BUN and creatinine 65 and 7.0, glucose is 384. A1c is 6.2. ASSESSMENT AND PLAN: 1. Bacteremia secondary to Vascath infection. The patient started on cefepime and vancomycin. ID consult requested. 2. Vascath infection. Interventional Radiology consulted for possible removal of Vascath. Vascath tip to send for culture. 3. End-stage renal disease. Nephrology consulted for continuation of hemodialysis. 4. Anemia secondary to end-stage renal disease. 5. Thrombocytopenia. Oncology consult requested. No heparin or Lovenox started. 6. Uncontrolled diabetes, insulin coverage for now. A1c is 6.2. 7. Hypocalcemia. Calcium supplements. 8. Malnutrition. Albumin is 3.2. Dietitian consult requested. 9. Deep venous thrombosis prophylaxis, only SCDs. No heparin or Lovenox because of thrombocytopenia. In summary, the patient has bacteremia secondary to Vascath infection, hyponatremia, end-stage renal disease, chronic anemia, thrombocytopenia, hypocalcemia and malnutrition. JOB# [id number] RENÉ/JACOBY ORTIZ
[2018-12-19] MEDS ORDERED: SUBLIMAZE ONE (11:33)
[2018-12-19] MEDS ORDERED: VERSED ONE (11:33)
[2018-12-19] MEDS ORDERED: HEPARIN/NS 5000 UNIT/500ML(CATH LAB) 500 ML IR ONE (11:34)
[2018-12-19] MEDS ORDERED: XYLOCAINE 1%/ EPI 1:100,000 INFILTRATI ONE (11:34)
[2018-12-19] MEDS: LOPRESSOR PO SCH (11:35)
[2018-12-19] MEDS: PEPCID PO SCH (11:36)
[2018-12-19] MEDS: HumaLOG SUB-Q SCH ×2 (11:36→17:55)
[2018-12-19] MEDS ORDERED: LOMOTIL PO PRN (12:00)
[2018-12-19] MEDS: HEPARIN 10,000 UNITS/10 ML ONE ×4 (12:06→12:10)
--- NOTE | 2018-12-19 12:16 | Operative Report ---
Operative Report Operative Report: Janes: Fluoroscopic guided tunneled hemodialysis catheter exchange Clinical indication: Patient with positive blood cultures in outpatient dialysis setting Date: 12/19/2018 Procedure: Following an inflammation of the risks, benefits and alternatives; written informed consent was obtained. The patient was brought the angiographic suite and placed in supine position on the examination table. Initial fluoroscopic image demonstrated appropriate positioning of the patient previously placed right chest wall tunneled hemodialysis catheter. No erythema or exudates are present. The patient's chest wall and catheter were prepped and draped in the usual sterile fashion. 1% lidocaine was used for anesthesia at the catheter exit site and along the tunnel tract. The catheter Was dissected free using sharp and blunt dissection. A 0.035 guidewire was advanced through the arterial lumen into the IVC. His 0.035 guidewire was advanced through the penis limited to the IVC. The catheter was then removed intact. A new 19 cm tunneled hemodialysis catheter was then tunneled over the guidewire and the tip positioned in the proximal right atrium. Both ports flushed and aspirated easily and more than locked with appropriate volumes of heparin. The catheter exit site was approximated using 3-0 Vicryl suture and Dermabond. A sterile dressing was applied. The patient tolerated the procedure well. There were no immediate post procedure complications. Conscious sedation was performed under the guidance or radiologic nursing. Continuous cardiopulmonary monitoring was utilized. Impression: Fluoroscopic guided tunneled hemodialysis catheter exchange
[2018-12-19] MEDS: SODIUM CHLORIDE FLUSH SYRINGE 10 ML IV SCH (13:03)
[2018-12-19] MEDS: VITAMIN B-1 PO SCH (13:03)
[2018-12-19] MEDS: FOLVITE PO SCH (13:04)
[2018-12-19] MEDS: PHOSLO PO SCH ×2 (13:04→16:19)
[2018-12-19] MEDS: ALDACTONE PO SCH (13:04)
[2018-12-19] MEDS: SYNTHROID PO SCH (13:06)
[2018-12-19] MEDS: COZAAR PO SCH (13:08)
--- NOTE | 2018-12-19 13:22 | Consultation ---
History of Present Illness - Reason for Consult Consult date: 12/19/18 - History of Present Illness 53 yo M PMHx ESRD on HD, HTN, DM2 admitted to the hospital after having blood cultures drawn at dialysis a few days ago which ended up growing GPC and GNR. He was then transferred here from his nursing facility for evaluation and treatment. He otherwise denies symptoms of systemic infection such as fevers, sweats, chills. The patient notes that both cultures were drawn from his dialysis catheter, not peripherally. Report from outside facility showing BCx positive for GPC in chains and pairs as well as GNR. He notes he feels at his baseline health otherwise and has no acute complaints. Tunnelled line was exchanged over a guidewire yesterday. Afebrile since admission with a normal white count. Patient currently receiving cefepime and vancomycin. Blood cultures from 12/18 are NGTD. Imaging personally reviewed: None obtained. Review of Systems: Bold if positive, otherwise negative General: fevers, chills, rigors HEENT: visual disturbance, diplopia, eye pain Respiratory: cough, sputum, hemoptysis, shortness of breath Cardiovascular: chest pain, syncope Gastrointestinal: nausea, vomiting, diarrhea, abdominal pain Genitourinary: dysuria, hematuria, flank pain Musculoskeletal: neck pain, back pain, joint pain, edema Neurologic: headaches, seizures Hematologic: easy bruising or bleeding Endocrine: night sweats, acute weight loss Skin: rash, jaundice, redness Psychiatric: suicidal, homicidal ideation Past History Past Medical History: dialysis, ESRD Past Surgical History: Other (failed left upper arm AV graft placement) Social history: no significant social history Family history: diabetes Medications and Allergies Allergies Allergy/AdvReac Type Severity Reaction Status Date / Time No Known Drug Allergies Allergy Unknown Verified 06/24/18 10:40 Home Medications Medication Instructions Recorded Confirmed Last Taken Type Acidophilus 175 mg Capsule 100 mg PO BID 07/08/17 12/18/18 06/26/18 06:00 History 100 mg Benadryl CAP 25 mg PO Q12H PRN 07/08/17 12/18/18 03/16/18 History Folic Acid 1 mg PO DAILY 07/08/17 12/18/18 06/26/18 06:00 History Lantus VIAL 20 units SQ QHS 07/08/17 12/18/18 06/25/18 21:00 History Lomotil 2.5-0.025 mg Tablet 2.5 mg PO Q6H PRN 07/08/17 12/18/18 03/16/18 History Metoprolol Tartrate 25 mg PO Q12H 07/08/17 12/18/18 06/26/18 06:00 History 25 mg NovoLOG Flexpen 3 units SQ AC 07/08/17 12/18/18 06/25/18 21:00 History Phoslo 667 mg PO TID 07/08/17 12/18/18 06/25/18 21:00 History 667 mg Remeron 15 mg PO QHS 07/08/17 12/18/18 06/25/18 21:00 History 15 mg Synthroid 25 mcg PO QAM 07/08/17 12/18/18 06/26/18 06:00 History 25 mcg Thiamine HCl 100 mg PO DAILY 07/08/17 12/18/18 06/26/18 06:00 History 100 mg Losartan [Cozaar] 50 mg PO QDAY 03/17/18 12/18/18 05/06/18 History 50 mg Spironolactone [Aldactone] 50 mg PO QDAY 03/17/18 12/18/18 06/26/18 06:00 History 25 mg Active Meds: Active Medications Acetaminophen (Tylenol) 650 mg PO Q4H PRN PRN Reason: Pain MILD(1-3)/Fever >100.5/WNOG Albumin Human (Alburx 25% (Albumin)) 25 gm IV RAJEEV PRN PRN Reason: Hypotension Calcium Acetate (Phoslo) 667 mg PO TIDWM [facility] Last Admin: 12/19/18 13:04 Dose: 667 mg Documented by: Diphenoxylate HCl/Atropine (Lomotil) 1 tab PO Q6HR PRN PRN Reason: Diarrhea Epoetin Jf (Procrit) 10,000 unit IV RAJEEV PRN PRN Reason: hemodialysis Famotidine (Pepcid) 10 mg PO BID [facility] Last Admin: 12/19/18 11:36 Dose: Not Given Documented by: Folic Acid (Folvite) 1 mg PO DAILY [facility] Last Admin: 12/19/18 13:04 Dose: 1 mg Documented by: Hydromorphone HCl (Dilaudid) 0.5 mg IV Q3H PRN PRN Reason: Pain , Severe (7-10) Cefepime HCl (Maxipime/Ns 1 Gm/100 Ml) 1 gm in 100 mls @ 200 mls/hr IV Q24H S ; Protocol Sodium Chloride (Nacl 0.9%) 100 mls @ 999 mls/hr IV RAJEEV PRN PRN Reason: Hypotension Insulin Glargine (Lantus) 20 units SUB-Q QHS [facility] Insulin Human Lispro (Humalog) 0 unit SUB-Q ACHS [facility]; Protocol Last Admin: 12/19/18 11:36 Dose: Not Given Documented by: Levothyroxine Sodium (Synthroid) 25 mcg PO DAILY@0600 [facility] Last Admin: 12/19/18 13:06 Dose: Not Given Documented by: Losartan Potassium (Cozaar) 50 mg PO QDAY [facility] Metoprolol Tartrate (Lopressor) 25 mg PO BID [facility] Last Admin: 12/19/18 11:35 Dose: Not Given Documented by: Mirtazapine (Remeron) 15 mg PO QHS [facility] Ondansetron HCl (Zofran) 4 mg IV Q3H PRN PRN Reason: Nausea And Vomiting Sodium Chloride (Sodium Chloride Flush Syringe 10 Ml) 10 ml IV BID [facility] Last Admin: 12/19/18 13:03 Dose: 10 ml Documented by: Sodium Chloride (Sodium Chloride Flush Syringe 10 Ml) 10 ml IV PRN PRN PRN Reason: LINE FLUSH Spironolactone (Aldactone) 50 mg PO QDAY [facility] Last Admin: 12/19/18 13:04 Dose: 50 mg Documented by: Thiamine HCl (Vitamin B-1) 100 mg PO QDAY [facility] Last Admin: 12/19/18 13:03 Dose: 100 mg Documented by: Physical Examination - Physical Exam Narrative exam: Constitutional: Alert, cooperative. No acute distress Head, Ears, Nose: Normocephalic, atraumatic. External ears, nose normal Eyes: Conjunctivae/corneas clear. No icterus. No ptosis. Neck: Supple, no meningeal signs Oral: dentition fair, no thrush Cardiovascular: S1, S2 normal. Respiratory: Good air entry, clear to auscultation bilaterally GI: Soft, non-tender; bowel sounds normal. No peritoneal signs. Musculoskeletal: No pedal edema, no cyanosis. Skin: No rash or abscess Hem/Lymphatic: No palpable cervical or supraclavicular nodes. No lymphangitis Psych: Mood ok. Affect normal Neurological: Awake, alert, oriented. No gross abnormality - Constitutional Vitals: Vital Signs Temp Pulse Resp BP Pulse Ox 97.8 F 81 16 102/58 100 12/19/18 12:44 12/19/18 13:04 12/19/18 12:40 12/19/18 13:04 12/19/18 12:40 Temperature -Last 24 Hours Temperature 97.8 F Temperature 97.5 F Temperature 97.9 F Temperature 97.7 F Results - Labs CBC & Chem 7: 12/19/18 05:50 12/19/18 05:50 Labs: Abnormal lab results 12/18/18 12/18/18 12/18/18 Range/Units 14:41 14:41 14:41 RBC 3.63 L (3.65-5.03) M/mm3 Hgb 10.5 L (11.8-15.2) gm/dl Hct 33.7 L (35.5-45.6) % MCHC 31 L (32-34) % RDW 17.0 H (13.2-15.2) % Plt Count 36 L (140-440) K/mm3 Lymph % (Auto) 7.5 L (13.4-35.0) % Baso % (Auto) (0.0-1.8) % Lymph # 0.5 L (1.2-5.4) K/mm3 Seg Neutrophils % 84.4 H (40.0-70.0) % Sodium 128 L (137-145) mmol/L Potassium (3.6-5.0) mmol/L Chloride 94.5 L (98-107) mmol/L Carbon Dioxide 13 L (22-30) mmol/L BUN 65 H (9-20) mg/dL Creatinine 7.0 H (0.8-1.5) mg/dL Glucose 384 H (75-100) mg/dL POC Glucose (70-105) Hemoglobin A1c 6.2 H (4-6) % Calcium 7.7 L (8.4-10.2) mg/dL ALT 5 L (7-56) units/L Total Protein (6.3-8.2) g/dL Albumin 3.2 L (3.9-5) g/dL 12/19/18 12/19/18 12/19/18 Range/Units 05:50 05:50 08:50 RBC 3.50 L (3.65-5.03) M/mm3 Hgb 10.5 L (11.8-15.2) gm/dl Hct 31.9 L (35.5-45.6) % MCHC (32-34) % RDW 16.8 H (13.2-15.2) % Plt Count 35 L (140-440) K/mm3 Lymph % (Auto) 8.3 L (13.4-35.0) % Baso % (Auto) 1.9 H (0.0-1.8) % Lymph # 0.4 L (1.2-5.4) K/mm3 Seg Neutrophils % 83.0 H (40.0-70.0) % Sodium 130 L (137-145) mmol/L Potassium 3.2 L (3.6-5.0) mmol/L Chloride (98-107) mmol/L Carbon Dioxide 15 L (22-30) mmol/L BUN 68 H (9-20) mg/dL Creatinine 7.3 H (0.8-1.5) mg/dL Glucose 188 H (75-100) mg/dL POC Glucose 166 H (70-105) Hemoglobin A1c (4-6) % Calcium 7.6 L (8.4-10.2) mg/dL ALT < 5 L (7-56) units/L Total Protein 5.9 L (6.3-8.2) g/dL Albumin 3.1 L (3.9-5) g/dL Assessment and Plan Cultures: 12/17 BCx from catheter: GPC in chains and pairs, GNR 12/18 BCx in house: NGTD A/P: 53 yo M PMHx HTn, DM2, ESRD on HD admitted with positive blood cultures from dialysis facility. 1. Infected dialysis catheter - pending further speciation on cultures. Would follow up in house peripheral blood cultures as well. GPC may not be pathogenic, but GNR are concerning. Line was exchanged over a guidewire. Continue cefepime and vancomycin pending finalization of outside cultures. 2. ESRD on HD - renally dose antibiotics 3. DM2 - tight glycemic control for optimized immune function 4. HTN Recs: - increase cefepime to 2g q24h - continue vancomycin dosed per pharmacy. Appreciate their assistance. Goal trough 15-20. - follow up outside blood culture finalization - follow up in house cultures Thank you for the consult, we will continue to follow. Carolin Leiva MD [facility] ([facility]) M: [phone] O: [phone] F: [phone]
[2018-12-19] MEDS ORDERED: PHOSLO 667 MG PO SCH (14:00)
[2018-12-19] MEDS: MAXIPIME/NS 1 GM/100 ML 1 GM/100 ML BAG IV SCH (16:19)
[2018-12-19 21:56] LABS: Hepatitis B Surface Antigen Non-Reactive (Negative); Hepatitis C Virus Antibody Non-Reactive (NonReactive)
[2018-12-19] MEDS ORDERED: REMERON 15 MG PO SCH (22:00)
[2018-12-19] MEDS ORDERED: LANTUS 20 UNIT SQ SCH (22:00)
[2018-12-19] MEDS ORDERED: NACL 0.9 (PRIMING MACHINE ONLY DIALYSIS) MC ONE (22:58)
[2018-12-20] MEDS: LANTUS SUB-Q SCH ×2 (00:24→22:16)
[2018-12-20] MEDS: LOPRESSOR PO SCH ×3 (00:26→22:15)
[2018-12-20] MEDS: PEPCID PO SCH ×3 (00:26→22:15)
[2018-12-20] MEDS: REMERON PO SCH ×2 (00:26→22:15)
[2018-12-20] MEDS: HumaLOG SUB-Q SCH ×5 (00:29→22:14)
[2018-12-20] MEDS: SODIUM CHLORIDE FLUSH SYRINGE 10 ML IV SCH ×3 (00:30→22:22)
[2018-12-20] MEDS: SYNTHROID PO SCH (06:22)
--- NOTE | 2018-12-20 07:30 | Event Note ---
Date: 12/19/18 [id number]
[2018-12-20] MEDS: PHOSLO PO SCH ×3 (08:00→17:00)
--- NOTE | 2018-12-20 08:29 | Progress Note ---
Assessment and Plan mpression * ESRD * bacteremia * s/p infected AVG s/p excision * Hypertension * Anemia secondary to ESRD * Type II DM * Thrombocytopenia Recommendation * HD q TTS schedule * UF as tolerated * s/p perm cath exchange noted * iv abx * ID to see for gram negative bacteremia * follow up cultures * Renal diet * Binders with meals * Epogen TIW prn * Adjust diet and meds for ESRD * once once blood cultures negative Subjective Date of service: 12/20/18 Principal diagnosis: bacteremia Interval history: resting well in bed Objective - Exam Narrative Exam: - General Limitations: No Limitations, Physical Limitation General appearance: alert, in no apparent distress - Head Head exam: Present: atraumatic, normocephalic - Eye Eye exam: Present: normal appearance - ENT ENT exam: Present: mucous membranes moist - Neck Neck exam: Present: normal inspection - Respiratory Respiratory exam: Present: normal lung sounds bilaterally. Absent: respiratory distress - Cardiovascular Cardiovascular Exam: Present: regular rate, normal rhythm. Absent: systolic murmur, diastolic murmur, rubs, gallop - GI/Abdominal GI/Abdominal exam: Present: soft, normal bowel sounds - Rectal Rectal exam: Present: deferred - Extremities Exam Extremities exam: Present: normal inspection - Back Exam Back exam: Present: normal inspection - Neurological Exam Neurological exam: Present: alert, oriented X3 - Psychiatric Psychiatric exam: Present: normal affect, normal mood - Skin Skin exam: Present: warm, dry, intact, normal color. Absent: rash - Vital Signs Vital signs: Vital Signs - 12hr 12/20/18 12/20/18 12/20/18 00:06 00:26 04:14 Temperature 99.3 F 98.1 F Pulse Rate 80 80 71 Respiratory 18 18 Rate Blood Pressure 121/59 121/59 104/59 O2 Sat by Pulse 100 100 Oximetry - Lab 12/19/18 05:50 12/19/18 05:50 Most recent lab results Calcium 7.6 mg/dL (8.4-10.2) L 12/19/18 05:50 Medications & Allergies - Medications Allergies/Adverse Reactions: Allergies No Known Drug Allergies Allergy (Verified 06/24/18 10:40) Unknown PT STATES THAT HE TOLD SN[facility] HE WAS ALLERGIC TO MORPHINE BECAUSE HE WAS AFRAID IF HE DIDN'T WRITE DOWN SOMETHING BEING WRONG WITH HIM THAT WOULDN'T LET HIM STAY Home Medications: Home Medications Medication Instructions Recorded Confirmed Last Taken Type Acidophilus 175 mg Capsule 100 mg PO BID 07/08/17 12/18/18 06/26/18 06:00 History 100 mg Benadryl CAP 25 mg PO Q12H PRN 07/08/17 12/18/18 03/16/18 History Folic Acid 1 mg PO DAILY 07/08/17 12/18/18 06/26/18 06:00 History Lantus VIAL 20 units SQ QHS 07/08/17 12/18/18 06/25/18 21:00 History Lomotil 2.5-0.025 mg Tablet 2.5 mg PO Q6H PRN 07/08/17 12/18/18 03/16/18 History Metoprolol Tartrate 25 mg PO Q12H 07/08/17 12/18/18 06/26/18 06:00 History 25 mg NovoLOG Flexpen 3 units SQ AC 07/08/17 12/18/18 06/25/18 21:00 History Phoslo 667 mg PO TID 07/08/17 12/18/18 06/25/18 21:00 History 667 mg Remeron 15 mg PO QHS 07/08/17 12/18/18 06/25/18 21:00 History 15 mg Synthroid 25 mcg PO QAM 07/08/17 12/18/18 06/26/18 06:00 History 25 mcg Thiamine HCl 100 mg PO DAILY 07/08/17 12/18/18 06/26/18 06:00 History 100 mg Losartan [Cozaar] 50 mg PO QDAY 03/17/18 12/18/18 05/06/18 History 50 mg Spironolactone [Aldactone] 50 mg PO QDAY 03/17/18 12/18/18 06/26/18 06:00 History 25 mg Active Medications: Generic Name Dose Route Start Last Admin Trade Name Freq PRN Reason Stop Dose Admin Acetaminophen 650 mg 12/18/18 21:11 Tylenol PO Q4H PRN Pain MILD(1-3)/Fever >100.5/WONG Albumin Human 25 gm 12/19/18 10:00 Alburx 25% (Albumin) IV RAJEEV PRN Hypotension Calcium Acetate 667 mg 12/19/18 12:00 10/11/19 16:19 Phoslo PO 667 mg TIDWM [facility] Administration Diphenoxylate HCl/Atropine 1 tab 12/19/18 12:00 Lomotil PO Q6HR PRN Diarrhea Epoetin Jf 10,000 unit 12/19/18 10:00 Procrit IV RAJEEV PRN hemodialysis Famotidine 10 mg 12/18/18 22:00 12/20/18 00:26 Pepcid PO 10 mg BID [facility] Administration Folic Acid 1 mg 12/19/18 10:00 12/19/18 13:04 Folvite PO 1 mg DAILY [facility] Administration Hydromorphone HCl 0.5 mg 12/18/18 21:11 Dilaudid IV Q3H PRN Pain , Severe (7-10) Cefepime HCl 1 gm in 100 mls @ 200 mls/hr 12/19/18 16:00 12/19/18 16:19 Maxipime/Ns 1 Gm/100 Ml IV 200 mls/hr Q24H [facility] Administration Protocol Sodium Chloride 100 mls @ 999 mls/hr 12/19/18 21:06 Nacl 0.9% IV RAJEEV PRN Hypotension Insulin Glargine 20 units 12/19/18 22:00 12/20/18 00:24 Lantus SUB-Q 20 units QHS [facility] Administration Insulin Human Lispro 0 unit 12/19/18 11:30 12/20/18 07:46 Humalog SUB-Q Not Given ACHS [facility] Protocol Levothyroxine Sodium 25 mcg 12/19/18 10:00 12/20/18 06:22 Synthroid PO 25 mcg DAILY@0600 [facility] Administration Losartan Potassium 50 mg 12/19/18 10:00 12/19/18 13:08 Cozaar PO Not Given QDAY [facility] Metoprolol Tartrate 25 mg 12/19/18 10:00 12/20/18 00:26 Lopressor PO 25 mg BID [facility] Administration Mirtazapine 15 mg 12/19/18 22:00 12/20/18 00:26 Remeron PO 15 mg QHS [facility] Administration Ondansetron HCl 4 mg 12/18/18 21:11 Zofran IV Q3H PRN Nausea And Vomiting Sodium Chloride 10 ml 12/18/18 22:00 12/20/18 00:30 Sodium Chloride Flush Syringe 10 Ml IV 10 ml BID [facility] Administration Sodium Chloride 10 ml 12/18/18 21:11 Sodium Chloride Flush Syringe 10 Ml IV PRN PRN LINE FLUSH Spironolactone 50 mg 12/19/18 10:00 12/19/18 13:04 Aldactone PO 50 mg QDAY [facility] Administration Thiamine HCl 100 mg 12/19/18 10:00 12/19/18 13:03 Vitamin B-1 PO 100 mg QDAY [facility] Administration
[2018-12-20 10:14] LABS: Basophils % (Auto) 0.7 % (0.0-1.8); Eosinophils % (Auto) 0.9 % (0.0-4.3); Hematocrit 30.2 % (35.5-45.6); Lymphocytes # (Auto) 0.4 K/mm3 (1.2-5.4); Lymphocytes % (Auto) 10.6 % (13.4-35.0); Mean Corpuscular HGB Conc 33 % (32-34); Mean Corpuscular Volume 90 fl (84-94); Monocytes # (Auto) 0.4 K/mm3 (0.0-0.8); Monocytes % (Auto) 11.7 % (0.0-7.3); Red Blood Count 3.36 M/mm3 (3.65-5.03); Red Cell Distribution Width 16.4 % (13.2-15.2)
[2018-12-20] MEDS: VITAMIN B-1 PO SCH (10:15)
[2018-12-20] MEDS: COZAAR PO SCH (10:15)
[2018-12-20] MEDS: FOLVITE PO SCH (10:15)
[2018-12-20] MEDS: ALDACTONE PO SCH (10:16)
[2018-12-20 10:17] LABS: Platelet Count 29 K/mm3 (140-440)
--- NOTE | 2018-12-20 10:28 | Progress Note ---
Assessment and Plan Assessment and plan: Patient is a 53 yo man with a history of ESRD on hemodialysis who presented with positive blood cultures of positive for gram-positive cocci as well as gram- negative rods drawn on 12/17/2018 . The patient is afebrile, vital signs are stable, no white count. On examination, the catheter track demonstrates no erythema, exudates or tenderness. ESRD: hemodialysis per [employer] Positive blood cultures, out of the hospital: follow up blood culture negative so far Line infection suspect Hypertension plan: removed/replaced Vas Cath HD line for right chest wall Perm-a-cath, treat with abx, await home ABX setup History Interval history: Patient was seen and examined. Follow-up on current diagnosis of Line Infection. No overnight events reported to me. Patient denies any chest pain, shortness breath, nausea/vomiting or severe headaches. Imaging, nursing note, chart, labs and old chart reviewed. Discussed with patient. Hospitalist Physical - Physical exam Narrative exam: Gen: cachetic, chronically ill appearing, bmi 18, NAD, Awake, Alert, Orientated HEENT: NCAT, EOMI, PERRL, OP Clear Neck: supple, no adenopathy, no thyromegaly, no JVD CVS/Heart: RRR, normal S1S2, pulses present bilaterally Chest/Lungs: CTA B, Symmetrical chest expansion, good air entry bilaterally GI/Abdomen: soft, NTND, good bowel sounds, no guarding or rebound /Bladder: no suprapubic tenderness, no CVA or paraspinal tenderness Extermity/Skin: no c/c/e, no obvious rash MSK: FROM x 4 Neuro: CN 2-12 grossly intact, no new focal deficits Psych: calm - Constitutional Vitals: Temp Pulse Resp BP Pulse Ox 98.1 F 71 18 104/59 100 12/20/18 04:14 12/20/18 04:14 12/20/18 04:14 12/20/18 04:14 12/20/18 04:14 General appearance: Present: no acute distress Results - Labs CBC & Chem 7: 12/20/18 09:42 12/19/18 05:50 Labs: Laboratory Last Values WBC 3.7 K/mm3 (4.5-11.0) L 12/20/18 09:42 RBC 3.36 M/mm3 (3.65-5.03) L 12/20/18 09:42 Hgb 10.0 gm/dl (11.8-15.2) L 12/20/18 09:42 Hct 30.2 % (35.5-45.6) L 12/20/18 09:42 MCV 90 fl (84-94) 12/20/18 09:42 MCH 30 pg (28-32) 12/20/18 09:42 MCHC 33 % (32-34) 12/20/18 09:42 RDW 16.4 % (13.2-15.2) H 12/20/18 09:42 Plt Count 29 K/mm3 (140-440) L 12/20/18 09:42 Lymph % (Auto) 10.6 % (13.4-35.0) L 12/20/18 09:42 [place] % (Auto) 11.7 % (0.0-7.3) H 12/20/18 09:42 Eos % (Auto) 0.9 % (0.0-4.3) 12/20/18 09:42 Baso % (Auto) 0.7 % (0.0-1.8) 12/20/18 09:42 Lymph # 0.4 K/mm3 (1.2-5.4) L 12/20/18 09:42 [place] # 0.4 K/mm3 (0.0-0.8) 12/20/18 09:42 Eos # 0.0 K/mm3 (0.0-0.4) 12/20/18 09:42 Baso # 0.0 K/mm3 (0.0-0.1) 12/20/18 09:42 Seg Neutrophils % 76.1 % (40.0-70.0) H 12/20/18 09:42 Seg Neutrophils # 2.8 K/mm3 (1.8-7.7) 12/20/18 09:42 Sodium 130 mmol/L (137-145) L 12/19/18 05:50 Potassium 3.2 mmol/L (3.6-5.0) L 12/19/18 05:50 Chloride 99.6 mmol/L (98-107) 12/19/18 05:50 Carbon Dioxide 15 mmol/L (22-30) L 12/19/18 05:50 Anion Gap 19 mmol/L 12/19/18 05:50 BUN 68 mg/dL (9-20) H 12/19/18 05:50 Creatinine 7.3 mg/dL (0.8-1.5) H 12/19/18 05:50 Estimated GFR 10 ml/min 12/19/18 05:50 BUN/Creatinine Ratio 9 % 12/19/18 05:50 Glucose 188 mg/dL (75-100) H 12/19/18 05:50 POC Glucose 107 (70-105) H 12/20/18 07:25 Hemoglobin A1c 6.2 % (4-6) H 12/18/18 14:41 Lactic Acid 1.20 mmol/L (0.7-2.0) 12/18/18 18:50 Calcium 7.6 mg/dL (8.4-10.2) L 12/19/18 05:50 Total Bilirubin 0.40 mg/dL (0.1-1.2) 12/19/18 05:50 AST 6 units/L (5-40) 12/19/18 05:50 ALT < 5 units/L (7-56) L 12/19/18 05:50 Alkaline Phosphatase 71 units/L (35-129) 12/19/18 05:50 Total Protein 5.9 g/dL (6.3-8.2) L 12/19/18 05:50 Albumin 3.1 g/dL (3.9-5) L 12/19/18 05:50 Albumin/Globulin Ratio 1.1 % 12/19/18 05:50 Hepatitis A IgM Ab Non-reactive (NonReactive) 12/19/18 17:45 Hep Bs Antigen Non-reactive (Negative) 12/19/18 17:45 Hep B Core IgM Ab Reactive (NonReactive) A 12/19/18 17:45 Hepatitis C Antibody Non-reactive (NonReactive) 12/19/18 17:45 Active Medications - Current Medications Current Medications: Generic Name Dose Route Start Last Admin Trade Name Freq PRN Reason Stop Dose Admin Acetaminophen 650 mg 12/18/18 21:11 Tylenol PO Q4H PRN Pain MILD(1-3)/Fever >100.5/WONG Albumin Human 25 gm 12/19/18 10:00 Alburx 25% (Albumin) IV RAJEEV PRN Hypotension Calcium Acetate 667 mg 12/19/18 12:00 12/20/18 08:00 Phoslo PO 667 mg TIDWM [facility] Administration Diphenoxylate HCl/Atropine 1 tab 12/19/18 12:00 Lomotil PO Q6HR PRN Diarrhea Epoetin Jf 10,000 unit 12/19/18 10:00 Procrit IV RAJEEV PRN hemodialysis Famotidine 10 mg 12/18/18 22:00 12/20/18 10:15 Pepcid PO 10 mg BID [facility] Administration Folic Acid 1 mg 12/19/18 10:00 12/20/18 10:15 Folvite PO 1 mg DAILY [facility] Administration Hydromorphone HCl 0.5 mg 12/18/18 21:11 Dilaudid IV Q3H PRN Pain , Severe (7-10) Cefepime HCl 1 gm in 100 mls @ 200 mls/hr 12/19/18 16:00 12/19/18 16:19 Maxipime/Ns 1 Gm/100 Ml IV 200 mls/hr Q24H [facility] Administration Protocol Sodium Chloride 100 mls @ 999 mls/hr 12/19/18 21:06 Nacl 0.9% IV RAJEEV PRN Hypotension Insulin Glargine 20 units 12/19/18 22:00 12/20/18 00:24 Lantus SUB-Q 20 units QHS [facility] Administration Insulin Human Lispro 0 unit 12/19/18 11:30 12/20/18 07:46 Humalog SUB-Q Not Given ACHS [facility] Protocol Levothyroxine Sodium 25 mcg 12/19/18 10:00 12/20/18 06:22 Synthroid PO 25 mcg DAILY@0600 [facility] Administration Losartan Potassium 50 mg 12/19/18 10:00 12/20/18 10:15 Cozaar PO 50 mg QDAY [facility] Administration Metoprolol Tartrate 25 mg 12/19/18 10:00 12/20/18 10:16 Lopressor PO 25 mg BID [facility] Administration Mirtazapine 15 mg 12/19/18 22:00 12/20/18 00:26 Remeron PO 15 mg QHS [facility] Administration Ondansetron HCl 4 mg 12/18/18 21:11 Zofran IV Q3H PRN Nausea And Vomiting Sodium Chloride 10 ml 12/18/18 22:00 12/20/18 10:16 Sodium Chloride Flush Syringe 10 Ml IV 10 ml BID [facility] Administration Sodium Chloride 10 ml 12/18/18 21:11 Sodium Chloride Flush Syringe 10 Ml IV PRN PRN LINE FLUSH Spironolactone 50 mg 12/19/18 10:00 12/20/18 10:16 Aldactone PO 50 mg QDAY [facility] Administration Thiamine HCl 100 mg 12/19/18 10:00 12/20/18 10:15 Vitamin B-1 PO 100 mg QDAY [facility] Administration Nutrition/Malnutrition Assess - Dietary Evaluation Nutrition/Malnutrition Findings: Nutrition Notes Start: 12/19/18 10:59 Freq: Status: Active Protocol: Document 12/19/18 10:59 AP (Rec: 12/19/18 11:45 AP [id number]) Co-Sign 12/19/18 10:59 LM Nutrition Notes Need for Assessment generated from: Low BMI Initial or Follow up Assessment Current Diagnosis CKD (stage V CKD),Diabetes, Hypertension Other Pertinent Diagnosis Anemia, Hypothyroidism, on HD Current Diet NPO Labs/Tests Na 130 K 3.2 BUN 68 Creatinine 7.3 BG 188 Ca 7.6 Total PRO 5.9 Albumin 3.1 ALT < 5 Pertinent Medications Pepcid Height 5 ft 8 in Weight 54.43 kg [place] Body Weight (kg) 70.00 BMI 18.2 Intake Prior to Admission Poor Weight Status Underweight Subjective/Other Information Pt was able to give coherent answers to some of my questions. Pt asked what was for lunch, let him know it was chicken pot pie day, but that he was NPO for some tests. Pt stated he doesn't eat much unless its something he really likes. Pt nodded when i asked if he would like ONS when diet is advanced. Performed NFPE, noted muscle/fat (tricep /calf) wasting. NPO for cardiac cath test. Burn Absent Trauma Absent Current % PO Poor (25-49%) Minimum of two criteria Yes Energy Intake (severe) < or equal to 50% Estimated Energy Requirement > or equal to 5 days Body Fat Depletion Moderate depletion (severe) Muscle Mass Moderate Depletion (severe) #1 Nutrition Diagnosis Malnutrition Etiology Chronic illness As Evidenced by Signs and Symptoms <50% EER >5 days Noted muscle/fat wasting (calf /tricep) Is patient on ventilator? No Is Patient Ambulatory and/or Out of Bed No REE-([facility]-confined to bed) 1652.808 Kcal/Kg value to use for calculation 40 Approximate Energy Requirements Using 2177 kcal/Kg Calculation Used for Recommendations Kcal/kg Additional Notes PRO needs 75-80g/day (1.2g/kg/ AdBW) Fluids: 1-1.5L/day Nutrition Intervention Change Diet Order: Renal diet when medically feasible Nutrition Support: Nepro Vanilla once a day Kcal 425 Protein (gm) 19 Goal #1 Pt meet >80% kcal/PRO needs via PO/ONS. Goal #2 Advance diet when medically feasible. Goal #3 Weight gain/maintenance. Anticipated Discharge Needs: Renal diet Follow-Up By: 12/22/18 Additional Comments F/U for PO/ONS intakes once diet is advanced.
[2018-12-20] MEDS ORDERED: ALBURX 25% (ALBUMIN) IV ONE (14:19)
[2018-12-20] MEDS ORDERED: PROCRIT ONE (14:20)
[2018-12-20] MEDS: MAXIPIME/NS 1 GM/100 ML 1 GM/100 ML BAG IV SCH ×2 (16:00→20:21)
--- NOTE | 2018-12-20 16:37 | Progress Note ---
Assessment and Plan Cultures: 12/17 BCx from catheter: GPC in chains and pairs, GNR 12/18 BCx in house: NGTD A/P: 53 yo M PMHx HTn, DM2, ESRD on HD admitted with positive blood cultures from dialysis facility. 1. Infected dialysis catheter - pending further speciation on cultures. Would follow up in house peripheral blood cultures as well. GPC may not be pathogenic, but GNR are concerning. Line was exchanged here over a guidewire. Continue cefepime and vancomycin pending finalization of outside cultures. 2. ESRD on HD - renally dose antibiotics 3. DM2 - tight glycemic control for optimized immune function 4. HTN Recs: - continue renally adjusted Cefepime and Vancomycin - blood cultures here are negative - anticipate discharge on post HD IV abx at the dialysis center once outside blood cultures are finalized, total duration: 14 days Davida Castellanos MD, FACP [facility] ([facility] C: [phone] O: [phone] F: [phone] Subjective Date of service: 12/20/18 Principal diagnosis: bacteremia Interval history: Denies any complaints. Getting dialysis in his room. No fever or chills. No nausea, vomiting. No rash. Objective - Exam Narrative Exam: Physical Exam: Constitutional: Alert, cooperative. No acute distress Head, Ears, Nose: Normocephalic, atraumatic. External ears, nose normal Eyes: Conjunctivae/corneas clear. No icterus. No ptosis. Neck: Supple, no meningeal signs Cardiovascular: S1, S2 normal. Respiratory: Good air entry, clear to auscultation bilaterally GI: Soft, non-tender; bowel sounds normal. No peritoneal signs Musculoskeletal: No pedal edema, no cyanosis. HD cath + Skin: No rash or abscess Hem/Lymphatic: No palpable cervical or supraclavicular nodes. No lymphangitis Psych: Mood ok. Affect normal Neurological: Awake, alert, oriented. No gross abnormality - Constitutional Vitals: Vital Signs Temp Pulse Resp BP Pulse Ox 98.0 F 64 18 118/60 99 12/20/18 15:00 12/20/18 16:15 12/20/18 15:00 12/20/18 16:15 12/20/18 11:56 Temperature -Last 24 Hours Temperature 98.0 F Temperature 98.0 F Temperature 98.1 F Temperature 99.3 F Temperature 98.2 F - Labs CBC & Chem 7: 12/20/18 09:42 12/19/18 05:50 Labs: Abnormal lab results 12/19/18 12/19/18 12/20/18 Range/Units 16:26 17:45 00:10 WBC (4.5-11.0) K/mm3 RBC (3.65-5.03) M/mm3 Hgb (11.8-15.2) gm/dl Hct (35.5-45.6) % RDW (13.2-15.2) % Plt Count (140-440) K/mm3 Lymph % (Auto) (13.4-35.0) % [place] % (Auto) (0.0-7.3) % Lymph # (1.2-5.4) K/mm3 Seg Neutrophils % (40.0-70.0) % POC Glucose 270 H 200 H (70-105) Ferritin (13.0-400.0) ng/mL Hep B Core IgM Ab Reactive A (NonReactive) 12/20/18 12/20/18 12/20/18 Range/Units 05:15 07:25 09:42 WBC (4.5-11.0) K/mm3 RBC (3.65-5.03) M/mm3 Hgb (11.8-15.2) gm/dl Hct (35.5-45.6) % RDW (13.2-15.2) % Plt Count (140-440) K/mm3 Lymph % (Auto) (13.4-35.0) % [place] % (Auto) (0.0-7.3) % Lymph # (1.2-5.4) K/mm3 Seg Neutrophils % (40.0-70.0) % POC Glucose 138 H 107 H (70-105) Ferritin 1150.0 H (13.0-400.0) ng/mL Hep B Core IgM Ab (NonReactive) 12/20/18 12/20/18 12/20/18 Range/Units 09:42 11:28 16:27 WBC 3.7 L (4.5-11.0) K/mm3 RBC 3.36 L (3.65-5.03) M/mm3 Hgb 10.0 L (11.8-15.2) gm/dl Hct 30.2 L (35.5-45.6) % RDW 16.4 H (13.2-15.2) % Plt Count 29 L (140-440) K/mm3 Lymph % (Auto) 10.6 L (13.4-35.0) % [place] % (Auto) 11.7 H (0.0-7.3) % Lymph # 0.4 L (1.2-5.4) K/mm3 Seg Neutrophils % 76.1 H (40.0-70.0) % POC Glucose 69 L 181 H (70-105) Ferritin (13.0-400.0) ng/mL Hep B Core IgM Ab (NonReactive)
[2018-12-20] MEDS ORDERED: VANCOMYCIN/NS 1 GM/250 ML 1 GM/250 ML BAG IV ONE (20:00)
--- NOTE | 2018-12-21 01:52 | Consultation ---
REFERRED BY: Dr. Patel. REASON FOR CONSULTATION: Thrombocytopenia. HISTORY OF PRESENT ILLNESS: I saw the patient, a 53-year-old male with end-stage renal disease and is on dialysis. Also, has hypertension, myopathy, unable to walk because of leg weakness. He came to the hospital because of positive blood cultures. He is complaining of fever now, positive for both gram-negative rods and gram-positive cocci and the patient was admitted, blood count shows platelets to be low. I have been asked to evaluate the patient for this. At this time, no headache, no visual disturbances. No ear discharge, fever present. No hematemesis, no hematochezia, no abdominal pain. No seizure, syncope or loss of consciousness. The patient has dialysis catheter in the right side of the chest. PAST MEDICAL HISTORY: As above. Leg weakness. SURGICAL HISTORY: Vascular catheter in the right chest wall. SOCIAL HISTORY: Does not smoke. FAMILY HISTORY: Hypertension. HOME MEDICATIONS: Include Lantus, metoprolol, PhosLo, Synthroid. ALLERGIES: None. PHYSICAL EXAMINATION: VITAL SIGNS: Temperature 98.2 (the patient warm to touch), pulse 90, respirations 20, BP 127/67. HEENT: Mild pallor, no icterus. NECK: No neck lymph nodes. HEART: S1, S2. LUNGS: Clear to auscultation. CHEST: Right chest dialysis catheter seen. ABDOMEN: Soft. EXTREMITIES: No calf tenderness. NEUROLOGIC: Alert, awake, answers simple questions. LABORATORY DATA: White cell 4.8, hemoglobin 10.5, MCV 91, platelet 35, potassium 3.2, creatinine 7.3, calcium 7.6. RADIOLOGY: None available. ASSESSMENT: 1. Positive cultures being followed by the team. 2. Thrombocytopenia. This could be secondary to infection. 3. End-stage renal disease on dialysis. 4. History of hypertension. 5. Anemia secondary to chronic kidney disease. 6. Diabetes. 7. PermCath change as per the vascular team. We will investigate for the cytopenias. In 2018, B12 was normal. JOB# [id number] NM/NTS
[2018-12-21 04:23] LABS: Iron 27 ug/dL (49-181)
[2018-12-21 04:40] LABS: Total Iron Binding Capacity 150 mcg/dL (250-450)
[2018-12-21] MEDS: SYNTHROID PO SCH (05:49)
[2018-12-21] MEDS: HumaLOG SUB-Q SCH ×4 (07:50→22:35)
--- NOTE | 2018-12-21 09:30 | Progress Note ---
Assessment and Plan mpression * ESRD * bacteremia * s/p infected AVG s/p excision * Hypertension * Anemia secondary to ESRD * Type II DM * Thrombocytopenia Recommendation * HD q TTS schedule * UF as tolerated * s/p perm cath exchange noted * iv abx * ID following for gram negative bacteremia * follow up cultures * Renal diet * Binders with meals * Epogen TIW prn * Adjust diet and meds for ESRD * dc once once blood cultures negative, continue iv abx as outpatient Subjective Date of service: 12/21/18 Principal diagnosis: bacteremia Interval history: resting well in bed Objective - Exam Narrative Exam: - General Limitations: No Limitations, Physical Limitation General appearance: alert, in no apparent distress - Head Head exam: Present: atraumatic, normocephalic - Eye Eye exam: Present: normal appearance - ENT ENT exam: Present: mucous membranes moist - Neck Neck exam: Present: normal inspection - Respiratory Respiratory exam: Present: normal lung sounds bilaterally. Absent: respiratory distress - Cardiovascular Cardiovascular Exam: Present: regular rate, normal rhythm. Absent: systolic murmur, diastolic murmur, rubs, gallop - GI/Abdominal GI/Abdominal exam: Present: soft, normal bowel sounds - Rectal Rectal exam: Present: deferred - Extremities Exam Extremities exam: Present: normal inspection - Back Exam Back exam: Present: normal inspection - Neurological Exam Neurological exam: Present: alert, oriented X3 - Psychiatric Psychiatric exam: Present: normal affect, normal mood - Skin Skin exam: Present: warm, dry, intact, normal color. Absent: rash - Vital Signs Vital signs: Vital Signs - 12hr 12/20/18 12/20/18 12/21/18 22:00 22:15 05:05 Temperature 97.7 F Pulse Rate 76 72 Respiratory 24 Rate Respiratory 17 Rate [Neck] Blood Pressure 132/70 118/70 O2 Sat by Pulse 99 Oximetry - Lab 12/20/18 09:42 12/19/18 05:50 Most recent lab results Calcium 7.6 mg/dL (8.4-10.2) L 12/19/18 05:50 Medications & Allergies - Medications Allergies/Adverse Reactions: Allergies No Known Drug Allergies Allergy (Verified 06/24/18 10:40) Unknown PT STATES THAT HE TOLD HALFWAY HE WAS ALLERGIC TO MORPHINE BECAUSE HE WAS AFRAID IF HE DIDN'T WRITE DOWN SOMETHING BEING WRONG WITH HIM THAT WOULDN'T LET HIM STAY Home Medications: Home Medications Medication Instructions Recorded Confirmed Last Taken Type Acidophilus 175 mg Capsule 100 mg PO BID 07/08/17 12/18/18 06/26/18 06:00 History 100 mg Benadryl CAP 25 mg PO Q12H PRN 07/08/17 12/18/18 03/16/18 History Folic Acid 1 mg PO DAILY 07/08/17 12/18/18 06/26/18 06:00 History Lantus VIAL 20 units SQ QHS 07/08/17 12/18/18 06/25/18 21:00 History Lomotil 2.5-0.025 mg Tablet 2.5 mg PO Q6H PRN 07/08/17 12/18/18 03/16/18 History Metoprolol Tartrate 25 mg PO Q12H 07/08/17 12/18/18 06/26/18 06:00 History 25 mg NovoLOG Flexpen 3 units SQ AC 07/08/17 12/18/18 06/25/18 21:00 History Phoslo 667 mg PO TID 07/08/17 12/18/18 06/25/18 21:00 History 667 mg Remeron 15 mg PO QHS 07/08/17 12/18/18 06/25/18 21:00 History 15 mg Synthroid 25 mcg PO QAM 07/08/17 12/18/18 06/26/18 06:00 History 25 mcg Thiamine HCl 100 mg PO DAILY 07/08/17 12/18/18 06/26/18 06:00 History 100 mg Losartan [Cozaar] 50 mg PO QDAY 03/17/18 12/18/18 05/06/18 History 50 mg Spironolactone [Aldactone] 50 mg PO QDAY 03/17/18 12/18/18 06/26/18 06:00 History 25 mg Active Medications: Generic Name Dose Route Start Last Admin Trade Name Freq PRN Reason Stop Dose Admin Acetaminophen 650 mg 12/18/18 21:11 Tylenol PO Q4H PRN Pain MILD(1-3)/Fever >100.5/WONG Albumin Human 25 gm 12/19/18 10:00 Alburx 25% (Albumin) IV RAJEEV PRN Hypotension Calcium Acetate 667 mg 12/19/18 12:00 12/20/18 17:00 Phoslo PO Not Given TIDWM [facility] Diphenoxylate HCl/Atropine 1 tab 12/19/18 12:00 Lomotil PO Q6HR PRN Diarrhea Epoetin Jf 10,000 unit 12/19/18 10:00 Procrit IV RAJEEV PRN hemodialysis Famotidine 10 mg 12/18/18 22:00 12/20/18 22:15 Pepcid PO 10 mg BID MAGDALENE Administration Folic Acid 1 mg 12/19/18 10:00 12/20/18 10:15 Folvite PO 1 mg DAILY MAGDALENE Administration Hydromorphone HCl 0.5 mg 12/18/18 21:11 Dilaudid IV Q3H PRN Pain , Severe (7-10) Cefepime HCl 1 gm in 100 mls @ 200 mls/hr 12/19/18 16:00 12/20/18 20:21 Maxipime/Ns 1 Gm/100 Ml IV 200 mls/hr Q24H MAGDALENE Administration Protocol Sodium Chloride 100 mls @ 999 mls/hr 12/19/18 21:06 Nacl 0.9% IV RAJEEV PRN Hypotension Insulin Glargine 20 units 12/19/18 22:00 12/20/18 22:16 Lantus SUB-Q 20 units QHS [facility] Administration Insulin Human Lispro 0 unit 12/19/18 11:30 12/21/18 07:50 Humalog SUB-Q Not Given ACHS [facility] Protocol Levothyroxine Sodium 25 mcg 12/19/18 10:00 12/21/18 05:49 Synthroid PO 25 mcg DAILY@0600 MAGDALENE Administration Losartan Potassium 50 mg 12/19/18 10:00 12/20/18 10:15 Cozaar PO 50 mg QDAY MAGDALENE Administration Metoprolol Tartrate 25 mg 12/19/18 10:00 12/20/18 22:15 Lopressor PO 25 mg BID MAGDALENE Administration Mirtazapine 15 mg 12/19/18 22:00 12/20/18 22:15 Remeron PO 15 mg QHS MAGDALENE Administration Ondansetron HCl 4 mg 12/18/18 21:11 Zofran IV Q3H PRN Nausea And Vomiting Sodium Chloride 10 ml 12/18/18 22:00 12/20/18 22:22 Sodium Chloride Flush Syringe 10 Ml IV 10 ml BID MAGDALENE Administration Sodium Chloride 10 ml 12/18/18 21:11 Sodium Chloride Flush Syringe 10 Ml IV PRN PRN LINE FLUSH Spironolactone 50 mg 12/19/18 10:00 12/20/18 10:16 Aldactone PO 50 mg QDAY MAGDALENE Administration Thiamine HCl 100 mg 12/19/18 10:00 12/20/18 10:15 Vitamin B-1 PO 100 mg QDAY MAGDALENE Administration
[2018-12-21] MEDS: PEPCID PO SCH ×2 (11:40→22:34)
[2018-12-21] MEDS: VITAMIN B-1 PO SCH (11:41)
[2018-12-21] MEDS: FOLVITE PO SCH (11:41)
[2018-12-21] MEDS: PHOSLO PO SCH ×3 (11:41→17:46)
[2018-12-21] MEDS: LOPRESSOR PO SCH ×2 (11:41→22:34)
[2018-12-21] MEDS: COZAAR PO SCH (11:41)
[2018-12-21] MEDS: ALDACTONE PO SCH (11:41)
[2018-12-21] MEDS: SODIUM CHLORIDE FLUSH SYRINGE 10 ML IV SCH ×2 (11:42→22:36)
--- NOTE | 2018-12-21 12:05 | Progress Note ---
Assessment and Plan Cultures: 12/17 BCx from catheter: GPC in chains and pairs, GNR 12/18 BCx in house: NGTD A/P: 53 yo M PMHx HTn, DM2, ESRD on HD admitted with positive blood cultures from dialysis facility. 1. Infected dialysis catheter - pending further speciation on cultures. Would follow up in house peripheral blood cultures as well. GPC may not be pathogenic, but GNR are concerning. Line was exchanged here over a guidewire. Continue cefepime and vancomycin pending finalization of outside cultures. 2. ESRD on HD - renally dose antibiotics 3. DM2 - tight glycemic control for optimized immune function 4. HTN Recs: - continue renally adjusted Cefepime and Vancomycin - blood cultures here remain negative - will have to call his HD center - Amy at [facility] for update on his 12/17/2018 blood culture results for ID and susceptibility data - anticipate discharge on post HD IV abx at the dialysis center: 14 days from cath exchange Davida Castellanos MD, FACP [facility] C: [phone] O: [phone] F: [phone] Subjective Date of service: 12/21/18 Principal diagnosis: bacteremia Interval history: Denies any complaints. Has had no fever or chills. No nausea, vomiting. No rash. Objective - Exam Narrative Exam: Physical Exam: Constitutional: Alert, cooperative. No acute distress. Cachexia + Head, Ears, Nose: Normocephalic, atraumatic. External ears, nose normal Eyes: Conjunctivae/corneas clear. No icterus. No ptosis. Neck: Supple, no meningeal signs Cardiovascular: S1, S2 normal. Respiratory: Good air entry, clear to auscultation bilaterally GI: Soft, non-tender; bowel sounds normal. No peritoneal signs Musculoskeletal: No pedal edema, no cyanosis. HD cath + Skin: No rash or abscess Hem/Lymphatic: No palpable cervical or supraclavicular nodes. No lymphangitis Psych: flat affect Neurological: Awake, alert, oriented. No gross abnormality - Constitutional Vitals: Vital Signs Temp Pulse Resp BP Pulse Ox 97.7 F 72 24 118/70 99 12/21/18 05:05 12/21/18 05:05 12/21/18 05:05 12/21/18 05:05 12/21/18 05:05 Temperature -Last 24 Hours Temperature 97.7 F Temperature 97.5 F Temperature 98.0 F Temperature 98.0 F - Labs CBC & Chem 7: 12/20/18 09:42 12/19/18 05:50 Labs: Abnormal lab results 12/20/18 12/20/18 12/20/18 Range/Units 09:42 16:27 21:26 POC Glucose 181 H 178 H (70-105) Iron 27 L (49-181) ug/dL TIBC 150 L (250-450) mcg/dL 12/21/18 Range/Units 11:51 POC Glucose 166 H (70-105) Iron (49-181) ug/dL TIBC (250-450) mcg/dL
--- NOTE | 2018-12-21 12:08 | Progress Note ---
Assessment and Plan Assessment and plan: Patient is a 53 yo man with a history of ESRD on hemodialysis who presented with positive blood cultures of positive for gram-positive cocci as well as gram- negative rods drawn on 12/17/2018 . The patient is afebrile, vital signs are stable, no white count. On examination, the catheter track demonstrates no erythema, exudates or tenderness. ESRD: hemodialysis per [employer]ist Positive blood cultures, out of the hospital: follow up blood culture negative so far Line infection suspect Hypertension plan: removed/replaced Vas Cath HD line for right chest wall Perm-a-cath, treat with abx, await home ABX setup History Interval history: Patient was seen and examined. Follow-up on current diagnosis of Line Infection. No overnight events reported to me. Patient denies any chest pain, shortness breath, nausea/vomiting or severe headaches. Imaging, nursing note, chart, labs and old chart reviewed. Discussed with patient. Hospitalist Physical - Physical exam Narrative exam: Gen: cachetic, chronically ill appearing, bmi 18, NAD, Awake, Alert, Orientated HEENT: NCAT, EOMI, PERRL, OP Clear Neck: supple, no adenopathy, no thyromegaly, no JVD CVS/Heart: RRR, normal S1S2, pulses present bilaterally Chest/Lungs: CTA B, Symmetrical chest expansion, good air entry bilaterally GI/Abdomen: soft, NTND, good bowel sounds, no guarding or rebound /Bladder: no suprapubic tenderness, no CVA or paraspinal tenderness Extermity/Skin: no c/c/e, no obvious rash MSK: FROM x 4 Neuro: CN 2-12 grossly intact, no new focal deficits Psych: calm - Constitutional Vitals: Temp Pulse Resp BP Pulse Ox 97.7 F 72 24 118/70 99 12/21/18 05:05 12/21/18 05:05 12/21/18 05:05 12/21/18 05:05 12/21/18 05:05 General appearance: Present: no acute distress Results - Labs CBC & Chem 7: 12/20/18 09:42 12/19/18 05:50 Labs: Laboratory Last Values WBC 3.7 K/mm3 (4.5-11.0) L 12/20/18 09:42 RBC 3.36 M/mm3 (3.65-5.03) L 12/20/18 09:42 Hgb 10.0 gm/dl (11.8-15.2) L 12/20/18 09:42 Hct 30.2 % (35.5-45.6) L 12/20/18 09:42 MCV 90 fl (84-94) 12/20/18 09:42 MCH 30 pg (28-32) 12/20/18 09:42 MCHC 33 % (32-34) 12/20/18 09:42 RDW 16.4 % (13.2-15.2) H 12/20/18 09:42 Plt Count 29 K/mm3 (140-440) L 12/20/18 09:42 Lymph % (Auto) 10.6 % (13.4-35.0) L 12/20/18 09:42 [place] % (Auto) 11.7 % (0.0-7.3) H 12/20/18 09:42 Eos % (Auto) 0.9 % (0.0-4.3) 12/20/18 09:42 Baso % (Auto) 0.7 % (0.0-1.8) 12/20/18 09:42 Lymph # 0.4 K/mm3 (1.2-5.4) L 12/20/18 09:42 [place] # 0.4 K/mm3 (0.0-0.8) 12/20/18 09:42 Eos # 0.0 K/mm3 (0.0-0.4) 12/20/18 09:42 Baso # 0.0 K/mm3 (0.0-0.1) 12/20/18 09:42 Seg Neutrophils % 76.1 % (40.0-70.0) H 12/20/18 09:42 Seg Neutrophils # 2.8 K/mm3 (1.8-7.7) 12/20/18 09:42 Sodium 130 mmol/L (137-145) L 12/19/18 05:50 Potassium 3.2 mmol/L (3.6-5.0) L 12/19/18 05:50 Chloride 99.6 mmol/L (98-107) 12/19/18 05:50 Carbon Dioxide 15 mmol/L (22-30) L 12/19/18 05:50 Anion Gap 19 mmol/L 12/19/18 05:50 BUN 68 mg/dL (9-20) H 12/19/18 05:50 Creatinine 7.3 mg/dL (0.8-1.5) H 12/19/18 05:50 Estimated GFR 10 ml/min 12/19/18 05:50 BUN/Creatinine Ratio 9 % 12/19/18 05:50 Glucose 188 mg/dL (75-100) H 12/19/18 05:50 POC Glucose 166 (70-105) H 12/21/18 11:51 Hemoglobin A1c 6.2 % (4-6) H 12/18/18 14:41 Lactic Acid 1.20 mmol/L (0.7-2.0) 12/18/18 18:50 Calcium 7.6 mg/dL (8.4-10.2) L 12/19/18 05:50 Iron 27 ug/dL (49-181) L 12/20/18 09:42 TIBC 150 mcg/dL (250-450) L 12/20/18 09:42 Ferritin 1150.0 ng/mL (13.0-400.0) H 12/20/18 09:42 Total Bilirubin 0.40 mg/dL (0.1-1.2) 12/19/18 05:50 AST 6 units/L (5-40) 12/19/18 05:50 ALT < 5 units/L (7-56) L 12/19/18 05:50 Alkaline Phosphatase 71 units/L (35-129) 12/19/18 05:50 Total Protein 5.9 g/dL (6.3-8.2) L 12/19/18 05:50 Albumin 3.1 g/dL (3.9-5) L 12/19/18 05:50 Albumin/Globulin Ratio 1.1 % 12/19/18 05:50 Vitamin B12 740.0 pg/mL (211-911) 12/20/18 09:42 Folate 16.59 ng/mL (7.3-26.0) 12/20/18 09:42 Vancomycin Trough 9.7 ug/mL (5.0-20.0) 12/20/18 14:21 Random Vancomycin Cancelled 12/20/18 14:21 Hepatitis A IgM Ab Non-reactive (NonReactive) 12/19/18 17:45 Hep Bs Antigen Non-reactive (Negative) 12/19/18 17:45 Hep B Core IgM Ab Reactive (NonReactive) A 12/19/18 17:45 Hepatitis C Antibody Non-reactive (NonReactive) 12/19/18 17:45 Active Medications - Current Medications Current Medications: Generic Name Dose Route Start Last Admin Trade Name Freq PRN Reason Stop Dose Admin Acetaminophen 650 mg 12/18/18 21:11 Tylenol PO Q4H PRN Pain MILD(1-3)/Fever >100.5/WONG Albumin Human 25 gm 12/19/18 10:00 Alburx 25% (Albumin) IV RAJEEV PRN Hypotension Calcium Acetate 667 mg 12/19/18 12:00 12/21/18 11:42 Phoslo PO 667 mg TIDWM MAGDALENE Administration Diphenoxylate HCl/Atropine 1 tab 12/19/18 12:00 Lomotil PO Q6HR PRN Diarrhea Epoetin Jf 10,000 unit 12/19/18 10:00 Procrit IV RAJEEV PRN hemodialysis Famotidine 10 mg 12/18/18 22:00 12/21/18 11:40 Pepcid PO 10 mg BID MAGDALENE Administration Folic Acid 1 mg 12/19/18 10:00 12/21/18 11:41 Folvite PO 1 mg DAILY MAGDALENE Administration Hydromorphone HCl 0.5 mg 12/18/18 21:11 Dilaudid IV Q3H PRN Pain , Severe (7-10) Cefepime HCl 1 gm in 100 mls @ 200 mls/hr 12/19/18 16:00 12/20/18 20:21 Maxipime/Ns 1 Gm/100 Ml IV 200 mls/hr Q24H MAGDALENE Administration Protocol Sodium Chloride 100 mls @ 999 mls/hr 12/19/18 21:06 Nacl 0.9% IV RAJEEV PRN Hypotension Insulin Glargine 20 units 12/19/18 22:00 12/20/18 22:16 Lantus SUB-Q 20 units QHS [facility] Administration Insulin Human Lispro 0 unit 12/19/18 11:30 12/21/18 07:50 Humalog SUB-Q Not Given ACHS [facility] Protocol Levothyroxine Sodium 25 mcg 12/19/18 10:00 12/21/18 05:49 Synthroid PO 25 mcg DAILY@0600 MAGDALENE Administration Losartan Potassium 50 mg 12/19/18 10:00 12/21/18 11:41 Cozaar PO 50 mg QDAY MAGDALENE Administration Metoprolol Tartrate 25 mg 12/19/18 10:00 12/21/18 11:41 Lopressor PO 25 mg BID MAGDALENE Administration Mirtazapine 15 mg 12/19/18 22:00 12/20/18 22:15 Remeron PO 15 mg QHS MAGDALENE Administration Ondansetron HCl 4 mg 12/18/18 21:11 Zofran IV Q3H PRN Nausea And Vomiting Sodium Chloride 10 ml 12/18/18 22:00 12/21/18 11:42 Sodium Chloride Flush Syringe 10 Ml IV 10 ml BID MAGDALENE Administration Sodium Chloride 10 ml 12/18/18 21:11 Sodium Chloride Flush Syringe 10 Ml IV PRN PRN LINE FLUSH Spironolactone 50 mg 12/19/18 10:00 12/21/18 11:41 Aldactone PO 50 mg QDAY MAGDALENE Administration Thiamine HCl 100 mg 12/19/18 10:00 12/21/18 11:41 Vitamin B-1 PO 100 mg QDAY MAGDALENE Administration Nutrition/Malnutrition Assess - Dietary Evaluation Nutrition/Malnutrition Findings: Nutrition Notes Start: 12/19/18 10:59 Freq: Status: Active Protocol: Document 12/19/18 10:59 AP (Rec: 12/19/18 11:45 AP [id number]) Co-Sign 12/19/18 10:59 LM Nutrition Notes Need for Assessment generated from: Low BMI Initial or Follow up Assessment Current Diagnosis CKD (stage V CKD),Diabetes, Hypertension Other Pertinent Diagnosis Anemia, Hypothyroidism, on HD Current Diet NPO Labs/Tests Na 130 K 3.2 BUN 68 Creatinine 7.3 BG 188 Ca 7.6 Total PRO 5.9 Albumin 3.1 ALT < 5 Pertinent Medications Pepcid Height 5 ft 8 in Weight 54.43 kg [place] Body Weight (kg) 70.00 BMI 18.2 Intake Prior to Admission Poor Weight Status Underweight Subjective/Other Information Pt was able to give coherent answers to some of my questions. Pt asked what was for lunch, let him know it was chicken pot pie day, but that he was NPO for some tests. Pt stated he doesn't eat much unless its something he really likes. Pt nodded when i asked if he would like ONS when diet is advanced. Performed NFPE, noted muscle/fat (tricep /calf) wasting. NPO for cardiac cath test. Burn Absent Trauma Absent Current % PO Poor (25-49%) Minimum of two criteria Yes Energy Intake (severe) < or equal to 50% Estimated Energy Requirement > or equal to 5 days Body Fat Depletion Moderate depletion (severe) Muscle Mass Moderate Depletion (severe) #1 Nutrition Diagnosis Malnutrition Etiology Chronic illness As Evidenced by Signs and Symptoms <50% EER >5 days Noted muscle/fat wasting (calf /tricep) Is patient on ventilator? No Is Patient Ambulatory and/or Out of Bed No REE-([place]-confined to bed) [phone] Kcal/Kg value to use for calculation 40 Approximate Energy Requirements Using 2177 kcal/Kg Calculation Used for Recommendations Kcal/kg Additional Notes PRO needs 75-80g/day (1.2g/kg/ AdBW) Fluids: 1-1.5L/day Nutrition Intervention Change Diet Order: Renal diet when medically feasible Nutrition Support: Nepro Vanilla once a day Kcal 425 Protein (gm) 19 Goal #1 Pt meet >80% kcal/PRO needs via PO/ONS. Goal #2 Advance diet when medically feasible. Goal #3 Weight gain/maintenance. Anticipated Discharge Needs: Renal diet Follow-Up By: 12/22/18 Additional Comments F/U for PO/ONS intakes once diet is advanced.
[2018-12-21] MEDS: MAXIPIME/NS 1 GM/100 ML 1 GM/100 ML BAG IV SCH (17:46)
[2018-12-21] MEDS: REMERON PO SCH (22:34)
[2018-12-21] MEDS: LANTUS SUB-Q SCH (22:36)
[2018-12-22] MEDS: SYNTHROID PO SCH (05:46)
--- NOTE | 2018-12-22 06:21 | Hem/Onc Progress Note ---
Assessment and Plan 1. Positive cultures being followed by the ID team. 2. Thrombocytopenia. This could be secondary to infection. 3. End-stage renal disease on dialysis. 4. History of hypertension. 5. Anemia secondary to chronic kidney disease. 6. Diabetes. 7. PermCath change as per the vascular team. We will investigate for the cytopenias. In 2018, B12 was normal. pt has had low platelet since 2018 - Patient Problems (1) Thrombocytopenia Current Visit: No Status: Acute Subjective Date of service: 12/22/18 Principal diagnosis: low platelet Interval history: no bleeding Objective - Exam Narrative Exam: Pain - n/a General appearance - no acute discomfort Performance status limited self care Eyes - no icterus ENT - no bleeding LNs cervical not palpable Neck - no LN Respiratory Normal Breath sounds - CTA anteriorly CVS S1 S2 + Extremities no edema General GI Soft Rectal deferred male - deferred Skin warm Musculoskeletal moves limbs Neurologically - alert awake - Constitutional Vitals: Last Vital Signs Temp 97.6 F 12/22/18 04:38 Pulse 57 L 12/22/18 04:38 Resp 18 12/22/18 04:38 BP 142/76 12/22/18 04:38 Pulse Ox 100 12/22/18 04:38 - Labs Lab Results: Laboratory Results - last 24 hr 12/21/18 12/21/18 12/21/18 07:29 11:51 16:36 POC Glucose 83 166 H 147 H 12/21/18 21:15 POC Glucose 335 H Medications & Allergies - Medications Allergies/Adverse Reactions: Allergies No Known Drug Allergies Allergy (Verified 06/24/18 10:40) Unknown PT STATES THAT HE TOLD CARE HOME HE WAS ALLERGIC TO MORPHINE BECAUSE HE WAS AFRAID IF HE DIDN'T WRITE DOWN SOMETHING BEING WRONG WITH HIM THAT WOULDN'T LET HIM STAY Home Medications: Home Medications Medication Instructions Recorded Confirmed Last Taken Type Acidophilus 175 mg Capsule 100 mg PO BID 07/08/17 12/18/18 06/26/18 06:00 History 100 mg Benadryl CAP 25 mg PO Q12H PRN 07/08/17 12/18/18 03/16/18 History Folic Acid 1 mg PO DAILY 07/08/17 12/18/18 06/26/18 06:00 History Lantus VIAL 20 units SQ QHS 07/08/17 12/18/18 06/25/18 21:00 History Lomotil 2.5-0.025 mg Tablet 2.5 mg PO Q6H PRN 07/08/17 12/18/18 03/16/18 History Metoprolol Tartrate 25 mg PO Q12H 07/08/17 12/18/18 06/26/18 06:00 History 25 mg NovoLOG Flexpen 3 units SQ AC 07/08/17 12/18/18 06/25/18 21:00 History Phoslo 667 mg PO TID 07/08/17 12/18/18 06/25/18 21:00 History 667 mg Remeron 15 mg PO QHS 07/08/17 12/18/18 06/25/18 21:00 History 15 mg Synthroid 25 mcg PO QAM 07/08/17 12/18/18 06/26/18 06:00 History 25 mcg Thiamine HCl 100 mg PO DAILY 07/08/17 12/18/18 06/26/18 06:00 History 100 mg Losartan [Cozaar] 50 mg PO QDAY 03/17/18 12/18/18 05/06/18 History 50 mg Spironolactone [Aldactone] 50 mg PO QDAY 03/17/18 12/18/18 06/26/18 06:00 History 25 mg Active Medications: Generic Name Dose Route Start Last Admin Trade Name Freq PRN Reason Stop Dose Admin Acetaminophen 650 mg 12/18/18 21:11 Tylenol PO Q4H PRN Pain MILD(1-3)/Fever >100.5/WONG Albumin Human 25 gm 12/19/18 10:00 Alburx 25% (Albumin) IV RAJEEV PRN Hypotension Calcium Acetate 667 mg 12/19/18 12:00 12/21/18 17:46 Phoslo PO 667 mg TIDWM MAGDALENE Administration Diphenoxylate HCl/Atropine 1 tab 12/19/18 12:00 Lomotil PO Q6HR PRN Diarrhea Epoetin Jf 10,000 unit 12/19/18 10:00 Procrit IV RAJEEV PRN hemodialysis Famotidine 10 mg 12/18/18 22:00 12/21/18 22:34 Pepcid PO 10 mg BID MAGDALENE Administration Folic Acid 1 mg 12/19/18 10:00 12/21/18 11:41 Folvite PO 1 mg DAILY MAGDALENE Administration Hydromorphone HCl 0.5 mg 12/18/18 21:11 Dilaudid IV Q3H PRN Pain , Severe (7-10) Cefepime HCl 1 gm in 100 mls @ 200 mls/hr 12/19/18 16:00 12/21/18 17:46 Maxipime/Ns 1 Gm/100 Ml IV 200 mls/hr Q24H MAGDALENE Administration Protocol Sodium Chloride 100 mls @ 999 mls/hr 12/19/18 21:06 Nacl 0.9% IV RAJEEV PRN Hypotension Insulin Glargine 20 units 12/19/18 22:00 12/21/18 22:36 Lantus SUB-Q 20 units QHS MAGDALENE Administration Insulin Human Lispro 0 unit 12/19/18 11:30 12/21/18 22:35 Humalog SUB-Q 6 unit ACHS MAGDALENE Administration Protocol Levothyroxine Sodium 25 mcg 12/19/18 10:00 12/22/18 05:46 Synthroid PO 25 mcg DAILY@0600 MAGDALENE Administration Losartan Potassium 50 mg 12/19/18 10:00 12/21/18 11:41 Cozaar PO 50 mg QDAY MAGDALENE Administration Metoprolol Tartrate 25 mg 12/19/18 10:00 12/21/18 22:34 Lopressor PO 25 mg BID MAGDALENE Administration Mirtazapine 15 mg 12/19/18 22:00 12/21/18 22:34 Remeron PO 15 mg QHS MAGDALENE Administration Ondansetron HCl 4 mg 12/18/18 21:11 Zofran IV Q3H PRN Nausea And Vomiting Sodium Chloride 10 ml 12/18/18 22:00 12/21/18 22:36 Sodium Chloride Flush Syringe 10 Ml IV 10 ml BID MAGDALENE Administration Sodium Chloride 10 ml 12/18/18 21:11 Sodium Chloride Flush Syringe 10 Ml IV PRN PRN LINE FLUSH Spironolactone 50 mg 12/19/18 10:00 12/21/18 11:41 Aldactone PO 50 mg QDAY MAGDALENE Administration Thiamine HCl 100 mg 12/19/18 10:00 12/21/18 11:41 Vitamin B-1 PO 100 mg QDAY MAGDALENE Administration
[2018-12-22] MEDS: HumaLOG SUB-Q SCH ×3 (08:18→16:52)
[2018-12-22] MEDS: PHOSLO PO SCH ×3 (08:38→16:52)
[2018-12-22] MEDS: PEPCID PO SCH (10:13)
[2018-12-22] MEDS: FOLVITE PO SCH (10:13)
[2018-12-22] MEDS: VITAMIN B-1 PO SCH (10:14)
[2018-12-22] MEDS: COZAAR PO SCH (10:14)
[2018-12-22] MEDS: LOPRESSOR PO SCH (10:14)
[2018-12-22] MEDS: ALDACTONE PO SCH (10:14)
[2018-12-22] MEDS: SODIUM CHLORIDE FLUSH SYRINGE 10 ML IV SCH (10:14)
--- NOTE | 2018-12-22 10:55 | Progress Note ---
Subjective Principal diagnosis: low platelet Interval history: Patient was seen today for follow-up of multiple renal related issues No complaints of any chest pain pressure or shortness of breath Interdisciplinary notes that also reviewed Events of 24 hours vitals labs intake output medications were reviewed Past medical history: Reviewed Family history: Reviewed Social history: Reviewed Allergies: Reviewed Physical examination: Vitals: Reviewed HEENT: No pallor or icterus oral mucosa moist Neck: Supple no JVD no thyromegaly Central venous catheter site: Unremarkable Chest: Bilateral clear to auscultation anteriorly Heart: Regular rate and rhythm S1-S2 heard no S3-S4 Abdomen: Soft nontender no voluntary guarding rigidity rebound Extremity: Dry skin less than 1+ peripheral edema Psychiatric: No evidence of agitation and aggression noted Dermatology: No petechial rashes Labs and x-rays: Reviewed from today Assessment and plan End-stage renal disease: Patient is currently on hemodialysis on TTS schedule, monitor dialysis related labs periodically Admitted with bacteremia dispose permacath exchange we'll need to get antibiotic per infectious disease Has had infected graft in the past Anemia and end-stage renal disease: Monitor hemoglobin and hematocrit erythropoietin as needed. Thrombocytopenia: Chronic platelet count has been in the range of 50,000 in the outpatient unit Secondary hyperparathyroidism: Check phosphorus and PTH level periodically Dialysis access: Currently working well Please consider dietitian consultation due to dialysis status, patient does need high-protein diet Fluid restriction: 1200 cc per day not to exceed more than that Adequately counseled and educated about other hospital related issues as well Patient was adequately counseled and educated regarding all the renal related issues Laboratory studies, pertinent for discussed with patient All questions were answered and simple [place] We'll continue to follow and make recommendation for renal standpoint Objective - Vital Signs Vital signs: Vital Signs - 12hr 12/22/18 04:38 Temperature 97.6 F Pulse Rate 57 L Respiratory 18 Rate Blood Pressure 142/76 O2 Sat by Pulse 100 Oximetry - Lab 12/20/18 09:42 12/19/18 05:50 Most recent lab results Calcium 7.6 mg/dL (8.4-10.2) L 12/19/18 05:50 Medications & Allergies - Medications Allergies/Adverse Reactions: Allergies No Known Drug Allergies Allergy (Verified 06/24/18 10:40) Unknown PT STATES THAT HE TOLD ASSISTED HE WAS ALLERGIC TO MORPHINE BECAUSE HE WAS AFRAID IF HE DIDN'T WRITE DOWN SOMETHING BEING WRONG WITH HIM THAT WOULDN'T LET HIM STAY Home Medications: Home Medications Medication Instructions Recorded Confirmed Last Taken Type Acidophilus 175 mg Capsule 100 mg PO BID 07/08/17 12/18/18 06/26/18 06:00 History 100 mg Benadryl CAP 25 mg PO Q12H PRN 07/08/17 12/18/18 03/16/18 History Folic Acid 1 mg PO DAILY 07/08/17 12/18/18 06/26/18 06:00 History Lantus VIAL 20 units SQ QHS 07/08/17 12/18/18 06/25/18 21:00 History Lomotil 2.5-0.025 mg Tablet 2.5 mg PO Q6H PRN 07/08/17 12/18/18 03/16/18 History Metoprolol Tartrate 25 mg PO Q12H 07/08/17 12/18/18 06/26/18 06:00 History 25 mg NovoLOG Flexpen 3 units SQ AC 07/08/17 12/18/18 06/25/18 21:00 History Phoslo 667 mg PO TID 07/08/17 12/18/18 06/25/18 21:00 History 667 mg Remeron 15 mg PO QHS 07/08/17 12/18/18 06/25/18 21:00 History 15 mg Synthroid 25 mcg PO QAM 07/08/17 12/18/18 06/26/18 06:00 History 25 mcg Thiamine HCl 100 mg PO DAILY 07/08/17 12/18/18 06/26/18 06:00 History 100 mg Losartan [Cozaar] 50 mg PO QDAY 03/17/18 12/18/18 05/06/18 History 50 mg Spironolactone [Aldactone] 50 mg PO QDAY 03/17/18 12/18/18 06/26/18 06:00 History 25 mg Active Medications: Generic Name Dose Route Start Last Admin Trade Name Freq PRN Reason Stop Dose Admin Acetaminophen 650 mg 12/18/18 21:11 Tylenol PO Q4H PRN Pain MILD(1-3)/Fever >100.5/WONG Albumin Human 25 gm 12/19/18 10:00 Alburx 25% (Albumin) IV RAJEEV PRN Hypotension Calcium Acetate 667 mg 12/19/18 12:00 12/22/18 08:38 Phoslo PO 667 mg TIDWM MAGDALENE Administration Diphenoxylate HCl/Atropine 1 tab 12/19/18 12:00 Lomotil PO Q6HR PRN Diarrhea Epoetin Jf 10,000 unit 12/19/18 10:00 Procrit IV RAJEEV PRN hemodialysis Famotidine 10 mg 12/18/18 22:00 12/22/18 10:13 Pepcid PO 10 mg BID MAGDALENE Administration Folic Acid 1 mg 12/19/18 10:00 12/22/18 10:13 Folvite PO 1 mg DAILY MAGDALENE Administration Hydromorphone HCl 0.5 mg 12/18/18 21:11 Dilaudid IV Q3H PRN Pain , Severe (7-10) Cefepime HCl 1 gm in 100 mls @ 200 mls/hr 12/19/18 16:00 12/21/18 17:46 Maxipime/Ns 1 Gm/100 Ml IV 200 mls/hr Q24H MAGDALENE Administration Protocol Sodium Chloride 100 mls @ 999 mls/hr 12/19/18 21:06 Nacl 0.9% IV RAJEEV PRN Hypotension Insulin Glargine 20 units 12/19/18 22:00 12/21/18 22:36 Lantus SUB-Q 20 units QHS MAGDALENE Administration Insulin Human Lispro 0 unit 12/19/18 11:30 12/22/18 08:18 Humalog SUB-Q Not Given ACHS [facility] Protocol Levothyroxine Sodium 25 mcg 12/19/18 10:00 12/22/18 05:46 Synthroid PO 25 mcg DAILY@0600 MAGDALENE Administration Losartan Potassium 50 mg 12/19/18 10:00 12/22/18 10:14 Cozaar PO 50 mg QDAY MAGDALENE Administration Metoprolol Tartrate 25 mg 12/19/18 10:00 12/22/18 10:14 Lopressor PO 25 mg BID MAGDALENE Administration Mirtazapine 15 mg 12/19/18 22:00 12/21/18 22:34 Remeron PO 15 mg QHS MAGDALENE Administration Ondansetron HCl 4 mg 12/18/18 21:11 Zofran IV Q3H PRN Nausea And Vomiting Sodium Chloride 10 ml 12/18/18 22:00 12/22/18 10:14 Sodium Chloride Flush Syringe 10 Ml IV 10 ml BID MAGDALENE Administration Sodium Chloride 10 ml 12/18/18 21:11 Sodium Chloride Flush Syringe 10 Ml IV PRN PRN LINE FLUSH Spironolactone 50 mg 12/19/18 10:00 12/22/18 10:14 Aldactone PO 50 mg QDAY MAGDALENE Administration Thiamine HCl 100 mg 12/19/18 10:00 12/22/18 10:14 Vitamin B-1 PO 100 mg QDAY MAGDALENE Administration
[2018-12-22 11:46] VITALS: BP 151/81
--- NOTE | 2018-12-22 12:03 | Progress Note ---
Assessment and Plan Cultures: 12/17 BCx from catheter: GPC in chains and pairs, GNR (called Col[facility] at [facility], to get update" growing Enterobacter aerogenes S to Cefepime, Ceftaz, Ceftriaxone, Bactrim. Enterococcus faecalis S to Ampicillin, Vancomycin. 12/18 BCx in house: NGTD A/P: 53 yo M PMHx HTn, DM2, ESRD on HD admitted with positive blood cultures from dialysis facility. 1. Infected dialysis catheter - with GPC and GNR bacteremia. Catheter exchanged over guidewire here given complex history. Blood cultures here negative. No fever. 2. ESRD on HD - renally dose antibiotics 3. DM2 - tight glycemic control for optimized immune function 4. HTN Recs: - IV Ceftazidime 2 gm post HD and IV Vancomycin 500 mg post HD x 10 more days ending 01/01/2019 - OK for discharge once abx arranged at dialysis center - case management orders placed D/W Dr. Patel. Davida Castellanos MD, FACP [facility] C: [phone] O: [phone] F: [phone] Subjective Date of service: 12/22/18 Principal diagnosis: low platelet Interval history: Denies any complaints. No fever or chills. No nausea, vomiting. No rash. Objective - Exam Narrative Exam: Physical Exam: Constitutional: Alert, cooperative. No acute distress. Cachexia + Head, Ears, Nose: Normocephalic, atraumatic. External ears, nose normal Eyes: Conjunctivae/corneas clear. No icterus. No ptosis. Neck: Supple, no meningeal signs Cardiovascular: S1, S2 normal. Respiratory: Good air entry, clear to auscultation bilaterally GI: Soft, non-tender; bowel sounds normal. No peritoneal signs Musculoskeletal: No pedal edema, no cyanosis. HD cath + Skin: No rash or abscess Hem/Lymphatic: No palpable cervical or supraclavicular nodes. No lymphangitis Psych: flat affect Neurological: Awake, alert, oriented. No gross abnormality - Constitutional Vitals: Vital Signs Temp Pulse Resp BP Pulse Ox 97.5 F L 57 L 18 151/81 99 12/22/18 11:45 12/22/18 11:45 12/22/18 11:45 12/22/18 11:45 12/22/18 11:45 Temperature -Last 24 Hours Temperature 97.5 F Temperature 97.6 F Temperature 98.7 F Temperature 98.1 F Temperature 98.0 F - Labs CBC & Chem 7: 12/20/18 09:42 12/19/18 05:50 Labs: Abnormal lab results 12/21/18 12/21/18 Range/Units 16:36 21:15 POC Glucose 147 H 335 H (70-105)
--- NOTE | 2018-12-22 12:52 | Discharge Summary ---
Providers - Providers Date of Admission: 12/18/18 16:40 Date of discharge: 12/22/18 Attending physician: ALEJANDRO BAKER 12/18/18 Consult to Case Management [CONS] Routine Services Needed at Discharge: Home Health Services Notified:: cm 12/18/18 16:01 Consult to Physician [CONS] Routine Comment: Consulting Provider: BASSEM STALLWORTH Physician Instructions: Reason For Exam: infected vas cath 12/18/18 16:23 Consult to Physician [CONS] Routine Comment: Consulting Provider: ROSETTA STEPHENS Physician Instructions: Reason For Exam: hd. esrd 12/19/18 08:06 Consult to Physician [CONS] Routine Comment: Consulting Provider: KM FERNANDEZ Physician Instructions: Reason For Exam: Bacteremia sec to vascath 12/19/18 08:09 Consult to Physician [CONS] Routine Comment: Consulting Provider: VEDA ROSALES Physician Instructions: Reason For Exam: Thrombocytopenia Primary care physician: TEO AVILES Hospitalization Condition: Stable Hospital course: Patient is a 53 yo man with a history of ESRD on hemodialysis who presented with positive blood cultures of positive for gram-positive cocci as well as gram- negative rods drawn on 12/17/2018 . The patient is afebrile, vital signs are stable, no white count. On examination, the catheter track demonstrates no erythema, exudates or tenderness. Discharge Diagnoses: ESRD on hemodialysis Infected dialysis catheter s/p exchange over guide wire Hypertension DM type 2 Anemia and end-stage renal disease: Thrombocytopenia: Chronic platelet count has been in the range of 50,000 in the outpatient unit Secondary hyperparathyroidism New Dialysis access placed 12/19/[address] Stallworth Severe Malnutrition, poa Disposition: [id number] [facility] C[facility] Time spent for discharge: 36 minutes Core Measure Documentation - Palliative Care Palliative Care/ Comfort Measures: Not Applicable - Core Measures Any of the following diagnoses?: none - VTE Discharge Requirements Deep Vein Thrombosis/Pulmonary Embolism Present on Admission: No Has pt received <5 days of overlap therapy or INR<2.0: No Anticoagulant overlap therapy prescribed at discharge: No Contraindication No Overlap Therapy order at DC: Not Indicated Exam - Physical Exam Narrative exam: Gen: cachetic, chronically ill appearing, bmi 18, NAD, Awake, Alert, Orientated HEENT: NCAT, EOMI, PERRL, OP Clear Neck: supple, no adenopathy, no thyromegaly, no JVD CVS/Heart: RRR, normal S1S2, pulses present bilaterally Chest/Lungs: CTA B, Symmetrical chest expansion, good air entry bilaterally GI/Abdomen: soft, NTND, good bowel sounds, no guarding or rebound /Bladder: no suprapubic tenderness, no CVA or paraspinal tenderness Extermity/Skin: no c/c/e, no obvious rash MSK: FROM x 4 Neuro: CN 2-12 grossly intact, no new focal deficits Psych: calm - Constitutional Vitals: Temp Pulse Resp BP Pulse Ox 97.5 F L 57 L 18 151/81 99 12/22/18 11:45 12/22/18 11:45 12/22/18 11:45 12/22/18 11:45 12/22/18 11:45 Plan Activity: other Diet: renal Special Instructions: restrict fluid intake to (Fluid restriction: 1200 cc per day not to exceed more than that) Follow up with: TEO AVILES MD [Primary Care Provider] - 3-5 Days ROSETTA STEPHENS MD [Staff Physician] - 7 Days
[2018-12-22] MEDS: MAXIPIME/NS 1 GM/100 ML 1 GM/100 ML BAG IV SCH (15:25)
== END 2018-12-22 17:36 | DRG 314 ==
LOC: ED 13:36 → 3A 16:40
PROVIDERS: ADMIT Internal Medicine; ATTEND Internal Medicine
PROC: 0J2TXYZ Change Other Device in Trunk Subcutaneous Tissue and Fascia, External Approach (ICD-10-PCS; principal; 2018-12-19)
PROC: 5A1D70Z Performance of Urinary Filtration, Intermittent, Less than 6 Hours Per Day (ICD-10-PCS; 2018-12-19)
PROC: 5A1D70Z Performance of Urinary Filtration, Intermittent, Less than 6 Hours Per Day (ICD-10-PCS; 2018-12-20)
DX: T80.211A Bloodstream infection due to central venous catheter, initial encounter (principal); N18.6 End stage renal disease; E43 Unspecified severe protein-calorie malnutrition; T82.7XXA Infection and inflammatory reaction due to other cardiac and vascular devices, implants and grafts, initial encounter; I12.0 Hypertensive chronic kidney disease with stage 5 chronic kidney disease or end stage renal disease; R78.81 Bacteremia; N25.81 Secondary hyperparathyroidism of renal origin; E87.1 Hypo-osmolality and hyponatremia; Z68.1 Body mass index [BMI] 19.9 or less, adult; E11.22 Type 2 diabetes mellitus with diabetic chronic kidney disease; D69.6 Thrombocytopenia, unspecified; D63.1 Anemia in chronic kidney disease; E83.51 Hypocalcemia; Z99.2 Dependence on renal dialysis; Z79.899 Other long term (current) drug therapy; Z82.49 Family history of ischemic heart disease and other diseases of the circulatory system
CPT/HCPCS: 36415; 36581; 77001; 80053; 80074; 80202; 82140; 82607; 82728; 82747; 82962; 83036; 83550; 85025; 87040; 87116; 96374; G0378; C1750; C1769; J0692; J0885; J1644; J1815; J2250; J3010; J3370; J7030; P9047

== ENCOUNTER 2019-02-17 08:22 | Inpatient (IN) | payer MEDICARE ==
--- NOTE | 2019-02-17 09:27 | XRay Report ---
CHEST 1 VIEW INDICATION: pulled out dialysis cath, esrd COMPARISON: 09/25/2018 FINDINGS: Support devices: None Heart: Normal and unchanged Lungs/Pleura: No acute pulmonary or pleural findings. IMPRESSION: 1. No acute disease and no significant interval change. Signer Name: Rio Franco MD Signed: 02/17/2019 9:22 AM Workstation Name: [id number]
[2019-02-17 09:38] LABS: Basophils % (Auto) 0.8 % (0.0-1.8); Eosinophils # (Auto) 0.1 K/mm3 (0.0-0.4); Eosinophils % (Auto) 2.5 % (0.0-4.3); Hematocrit 36.8 % (35.5-45.6); Hemoglobin 11.8 gm/dl (11.8-15.2); Lymphocytes # (Auto) 0.6 K/mm3 (1.2-5.4); Lymphocytes % (Auto) 14.6 % (13.4-35.0); Mean Corpuscular HGB Conc 32 % (32-34); Mean Corpuscular Volume 95 fl (84-94); Monocytes # (Auto) 0.2 K/mm3 (0.0-0.8); Monocytes % (Auto) 5.7 % (0.0-7.3); Red Blood Count 3.87 M/mm3 (3.65-5.03); Red Cell Distribution Width 14.8 % (13.2-15.2)
[2019-02-17 09:39] LABS: Platelet Count 33 K/mm3 (140-440)
--- NOTE | 2019-02-17 09:49 | Emergency Department Report ---
ED General Adult HPI - General Chief complaint: Medical Clearance Stated complaint: PULLED OUT DIALYSIS PORT Time Seen by Provider: 02/17/19 08:50 Source: EMS Mode of arrival: Stretcher Limitations: Altered Mental Status, Physical Limitation - History of Present Illness Initial comments: 53-year-old male with a past medical history of end-stage disease on dialysis, thrombocytopenia, dementia, hypertension, use, and chronic leg weakness since the hospital after pulling out his right chest wall Vas-Cath. Patient denies any pain or complaints. Patient local residential. As per [place] pt receives dialysis t, th, sat with last on sat. PMD Dr. King Severity scale (0 -10): 0 - Related Data Home Medications Medication Instructions Recorded Confirmed Last Taken Acidophilus 175 mg Capsule 100 mg PO BID 07/08/17 02/17/19 06/26/18 06:00 100 mg Benadryl CAP 25 mg PO Q12H PRN 07/08/17 02/17/19 03/16/18 Folic Acid 1 mg PO DAILY 07/08/17 02/17/19 06/26/18 06:00 Lantus VIAL 20 units SQ QHS 07/08/17 02/17/19 06/25/18 21:00 Lomotil 2.5-0.025 mg Tablet 2.5 mg PO Q6H PRN 07/08/17 02/17/19 03/16/18 Metoprolol Tartrate 25 mg PO Q12H 07/08/17 02/17/19 06/26/18 06:00 25 mg NovoLOG Flexpen 3 units SQ AC 07/08/17 02/17/19 06/25/18 21:00 Phoslo 667 mg PO TID 07/08/17 02/17/19 06/25/18 21:00 667 mg Remeron 15 mg PO QHS 07/08/17 02/17/19 06/25/18 21:00 15 mg Synthroid 25 mcg PO QAM 07/08/17 02/17/19 06/26/18 06:00 25 mcg Thiamine HCl 100 mg PO DAILY 07/08/17 02/17/19 06/26/18 06:00 100 mg Losartan [Cozaar] 50 mg PO QDAY 03/17/18 02/17/19 05/06/18 50 mg Spironolactone [Aldactone] 50 mg PO QDAY 03/17/18 02/17/19 06/26/18 06:00 25 mg Cholestyramine/Aspartame 210 gm PO QDAY 02/17/19 02/17/19 Unknown [Cholestyramine Light Powder] Insulin Aspart (Nf) [Novolog] 0 unit SQ AC 02/17/19 02/17/19 Unknown Loperamide HCl [Imodium A-D] 2 mg PO QDAY PRN 02/17/19 02/17/19 Unknown Allergies Allergy/AdvReac Type Severity Reaction Status Date / Time morphine Allergy Unknown Verified 02/17/19 08:48 No Known Drug Allergies Allergy Unknown Verified 06/24/18 10:40 ED Review of Systems ROS: Stated complaint: PULLED OUT DIALYSIS PORT Other details as noted in HPI Comment: All other systems reviewed and negative ED Past Medical Hx - Past Medical History Hx Hypertension: Yes Hx Heart Attack/AMI: No Hx Congestive Heart Failure: No Hx Diabetes: Yes Hx Renal Disease: Yes Hx Asthma: No Hx COPD: No Additional medical history: unable to walk due to weak leg muscles - Surgical History Additional Surgical History: vas cath to right chest wall - Social History Smoking Status: Unknown if ever smoked - Medications Home Medications: Home Medications Medication Instructions Recorded Confirmed Last Taken Type Acidophilus 175 mg Capsule 100 mg PO BID 07/08/17 02/17/19 06/26/18 06:00 History 100 mg Benadryl CAP 25 mg PO Q12H PRN 07/08/17 02/17/19 03/16/18 History Folic Acid 1 mg PO DAILY 07/08/17 02/17/19 06/26/18 06:00 History Lantus VIAL 20 units SQ QHS 07/08/17 02/17/19 06/25/18 21:00 History Lomotil 2.5-0.025 mg Tablet 2.5 mg PO Q6H PRN 07/08/17 02/17/19 03/16/18 History Metoprolol Tartrate 25 mg PO Q12H 07/08/17 02/17/19 06/26/18 06:00 History 25 mg NovoLOG Flexpen 3 units SQ AC 07/08/17 02/17/19 06/25/18 21:00 History Phoslo 667 mg PO TID 07/08/17 02/17/19 06/25/18 21:00 History 667 mg Remeron 15 mg PO QHS 07/08/17 02/17/19 06/25/18 21:00 History 15 mg Synthroid 25 mcg PO QAM 07/08/17 02/17/19 06/26/18 06:00 History 25 mcg Thiamine HCl 100 mg PO DAILY 07/08/17 02/17/19 06/26/18 06:00 History 100 mg Losartan [Cozaar] 50 mg PO QDAY 03/17/18 02/17/19 05/06/18 History 50 mg Spironolactone [Aldactone] 50 mg PO QDAY 03/17/18 02/17/19 06/26/18 06:00 History 25 mg Cholestyramine/Aspartame 210 gm PO QDAY 02/17/19 02/17/19 Unknown History [Cholestyramine Light Powder] Insulin Aspart (Nf) [Novolog] 0 unit SQ AC 02/17/19 02/17/19 Unknown History Loperamide HCl [Imodium A-D] 2 mg PO QDAY PRN 02/17/19 02/17/19 Unknown History ED Physical Exam - General Limitations: Altered Mental Status, Physical Limitation - Other Other exam information: General: No acute distress Head: Atraumatic Eyes: normal appearance ENT: Moist mucous membranes Neck: Normal appearance, no midline tenderness Chest: Clear to auscultation bilaterally. Right chest wall wound previous Vas- Cath area CV: Regular rate and rhythm Abdomen: Soft, normal bowel sounds, nontender, nondistended, no rebound or guarding Back: Normal inspection Extremity: Normal inspection infection, full range of motion Neuro: Alert O no facial asymmetry, speech clear, 5/5 upper extremity strength. 4/5 lower extremity strength with hip flexion against gravity equal bilaterally Psych: Appropriate behavior Skin: No rash ED Course Vital Signs 02/17/19 02/17/19 02/17/19 08:38 08:45 08:53 Temperature Pulse Rate 78 77 Respiratory 12 14 Rate Blood Pressure 134/76 Blood Pressure 134/76 [Left] O2 Sat by Pulse 100 100 100 Oximetry 02/17/19 02/17/19 02/17/19 08:54 10:13 10:45 Temperature 94.2 F L Pulse Rate 72 Respiratory 14 19 Rate Blood Pressure 142/76 Blood Pressure [Left] O2 Sat by Pulse 100 100 Oximetry 02/17/19 10:58 Temperature 97.5 F L Pulse Rate Respiratory Rate Blood Pressure Blood Pressure [Left] O2 Sat by Pulse Oximetry - Consultations Consultation #1: 02/17/19 11:31 dr Sanabria ED Medical Decision Making - Lab Data Result diagrams: 02/17/19 09:16 02/17/19 09:16 Lab Results 02/17/19 02/17/19 02/17/19 Range/Units 09:16 09:16 09:16 WBC 4.0 L (4.5-11.0) K/mm3 RBC 3.87 (3.65-5.03) M/mm3 Hgb 11.8 (11.8-15.2) gm/dl Hct 36.8 (35.5-45.6) % MCV 95 H (84-94) fl MCH 31 (28-32) pg MCHC 32 (32-34) % RDW 14.8 (13.2-15.2) % Plt Count 33 L (140-440) K/mm3 Lymph % (Auto) 14.6 (13.4-35.0) % Forrest % (Auto) 5.7 (0.0-7.3) % Eos % (Auto) 2.5 (0.0-4.3) % Baso % (Auto) 0.8 (0.0-1.8) % Lymph # 0.6 L (1.2-5.4) K/mm3 Forrest # 0.2 (0.0-0.8) K/mm3 Eos # 0.1 (0.0-0.4) K/mm3 Baso # 0.0 (0.0-0.1) K/mm3 Seg Neutrophils % 76.4 H (40.0-70.0) % Seg Neutrophils # 3.1 (1.8-7.7) K/mm3 PT 15.3 H (12.2-14.9) Sec. INR 1.22 H (0.87-1.13) APTT 33.5 (24.2-36.6) Sec. Sodium 141 (137-145) mmol/L Potassium 3.6 (3.6-5.0) mmol/L Chloride 102.2 (98-107) mmol/L Carbon Dioxide 13 L (22-30) mmol/L Anion Gap 29 mmol/L BUN 70 H (9-20) mg/dL Creatinine 7.8 H (0.8-1.5) mg/dL Estimated GFR 9 ml/min BUN/Creatinine Ratio 9 % Glucose 76 (75-100) mg/dL Calcium 8.3 L (8.4-10.2) mg/dL - Radiology Data Radiology results: report reviewed CHEST 1 VIEW INDICATION: pulled out dialysis cath, esrd COMPARISON: 09/25/2018 FINDINGS: Support devices: None Heart: Normal and unchanged Lungs/Pleura: No acute pulmonary or pleural findings. IMPRESSION: 1. No acute disease and no significant interval change. - Medical Decision Making Patient requires admission for dialysis acess. He is due for dialysis today. At this time does not need emergent dialysis due to lack of volume overload and hyperkalemia. leukopenia and chronic thrombocytopenia. This was discussed with nephrology who suggests that hypothermia can occur in end-stage renal disease patients. Dr. Ray express concern about these values. Given history of recent infection blood cultures, lactic acidosis, and venous pH have been ordered. hospitalist informed for admission. temp improved with warm blankets - Differential Diagnosis volume overload, hyperkalemia, dislodge access, Critical Care Time: No Critical care attestation.: If time is entered above; I have spent that time in minutes in the direct care of this critically ill patient, excluding procedure time. ED Disposition Clinical Impression: ESRD on hemodialysis, Displacement of vascular dialysis catheter, Thrombocytopenia, Hypothermia Disposition: OP ADMIT IP TO THIS HOSP Is pt being admited?: Yes Condition: Stable Time of Disposition: 11:33 (Dr armijo/hosp)
[2019-02-17 09:59] LABS: Calcium 8.3 mg/dL (8.4-10.2)
[2019-02-17 10:05] LABS: INR 1.22 (0.87-1.13); Partial Thromboplastin Time 33.5 Sec. (24.2-36.6)
--- NOTE | 2019-02-17 12:43 | History and Physical Report ---
History of Present Illness Date of admission: 02/17/19 11:57 Chief complaint: confused History of present illness: 53 YO Male [facility] Resident with ESRD on HD (T,R,Sa), Dementia, Severe Malnutrition, Thrombocytopenia, HTN, DM, Nicotine Dependence, Debility presents to [facility] for evaluation after pt found to have accidentally removed his dialysis catheter. Pt is confused and is unable to provide detailed history. PT history taken from medical record, ED staff, as well as SNF staff. As per staff, EMS was notified, and upon arrival the patient was found to have a dislodged dialysis catheter. Pt seen and evaluated uopn arrival to his room. Pt found to have ESRD. Pt resting comfortably at time of exam. No reports of fever, chills, CP, palpitations, NVD, productive cough, or recent ill contacts. Nephrology consulted in ED. Vascular surgery team consulted in ED for catheter replacement. Prior admission on 12/18/18 reviewed. All listed medication reconciled at time of admission. Pt admitted to catheter replacement as well as dialysis. Past History Past Medical History: other (see HPI) Past Surgical History: Other (dialysis catheter placement) Social history: single. denies: smoking, alcohol abuse, prescription drug abuse Family history: hypertension Medications and Allergies Allergies Allergy/AdvReac Type Severity Reaction Status Date / Time morphine Allergy Unknown Verified 02/17/19 08:48 No Known Drug Allergies Allergy Unknown Verified 06/24/18 10:40 Home Medications Medication Instructions Recorded Confirmed Last Taken Type Acidophilus 175 mg Capsule 100 mg PO BID 07/08/17 02/17/19 06/26/18 06:00 History 100 mg Benadryl CAP 25 mg PO Q12H PRN 07/08/17 02/17/19 03/16/18 History Folic Acid 1 mg PO DAILY 07/08/17 02/17/19 06/26/18 06:00 History Lantus VIAL 20 units SQ QHS 07/08/17 02/17/19 06/25/18 21:00 History Lomotil 2.5-0.025 mg Tablet 2.5 mg PO Q6H PRN 07/08/17 02/17/19 03/16/18 History Metoprolol Tartrate 25 mg PO Q12H 07/08/17 02/17/19 06/26/18 06:00 History 25 mg NovoLOG Flexpen 3 units SQ AC 07/08/17 02/17/19 06/25/18 21:00 History Phoslo 667 mg PO TID 07/08/17 02/17/19 06/25/18 21:00 History 667 mg Remeron 15 mg PO QHS 07/08/17 02/17/19 06/25/18 21:00 History 15 mg Synthroid 25 mcg PO QAM 07/08/17 02/17/19 06/26/18 06:00 History 25 mcg Thiamine HCl 100 mg PO DAILY 07/08/17 02/17/19 06/26/18 06:00 History 100 mg Losartan [Cozaar] 50 mg PO QDAY 03/17/18 02/17/19 05/06/18 History 50 mg Spironolactone [Aldactone] 50 mg PO QDAY 03/17/18 02/17/19 06/26/18 06:00 History 25 mg Cholestyramine/Aspartame 210 gm PO QDAY 02/17/19 02/17/19 Unknown History [Cholestyramine Light Powder] Insulin Aspart (Nf) [Novolog] 0 unit SQ AC 02/17/19 02/17/19 Unknown History Loperamide HCl [Imodium A-D] 2 mg PO QDAY PRN 02/17/19 02/17/19 Unknown History Review of Systems ROS unobtainable: due to mental status Exam - Constitutional Vitals: Temp Pulse Resp BP Pulse Ox 97.5 F L 72 19 142/76 100 02/17/19 10:58 02/17/19 10:45 02/17/19 10:45 02/17/19 10:45 02/17/19 10:45 General appearance: Present: mild distress - EENT Eyes: Present: PERRL ENT: hearing intact, clear oral mucosa - Neck Neck: Present: supple - Respiratory Respiratory effort: normal Respiratory: bilateral: CTA - Cardiovascular Heart Sounds: Present: S1 & S2. Absent: rub, click - Extremities Extremities: abnormal (ble weakness. ) Peripheral Pulses: within normal limits - Abdominal General gastrointestinal: Present: soft, non-tender, non-distended, normal bowel sounds Male genitourinary: Present: normal - Integumentary Integumentary: Present: clear, dry, decreased turgor - Musculoskeletal Musculoskeletal: generalized weakness - Psychiatric Psychiatric: no appropriate mood/affect, no intact judgment & insight, no memory intact - Neurologic Neurologic: CNII-XII intact, moves all extremities, no gait normal Results - Labs CBC & Chem 7: 02/17/19 09:16 02/17/19 09:16 Labs: Abnormal lab results 02/17/19 02/17/19 02/17/19 Range/Units 09:16 09:16 09:16 WBC 4.0 L (4.5-11.0) K/mm3 MCV 95 H (84-94) fl Plt Count 33 L (140-440) K/mm3 Lymph # 0.6 L (1.2-5.4) K/mm3 Seg Neutrophils % 76.4 H (40.0-70.0) % PT 15.3 H (12.2-14.9) Sec. INR 1.22 H (0.87-1.13) VBG pH (7.320-7.420) Carbon Dioxide 13 L (22-30) mmol/L BUN 70 H (9-20) mg/dL Creatinine 7.8 H (0.8-1.5) mg/dL Calcium 8.3 L (8.4-10.2) mg/dL 02/17/19 Range/Units 11:46 WBC (4.5-11.0) K/mm3 MCV (84-94) fl Plt Count (140-440) K/mm3 Lymph # (1.2-5.4) K/mm3 Seg Neutrophils % (40.0-70.0) % PT (12.2-14.9) Sec. INR (0.87-1.13) VBG pH 7.212 L (7.320-7.420) Carbon Dioxide (22-30) mmol/L BUN (9-20) mg/dL Creatinine (0.8-1.5) mg/dL Calcium (8.4-10.2) mg/dL Assessment and Plan - Patient Problems (1) ESRD (end stage renal disease) Current Visit: Yes Status: Acute Plan to address problem: Nephrology consulted in ED, dialysis as per renal team S/P dialysis catheter replacement, strict I/O, monitor uop q shift, avoid nephrotoxic agents, renal diet as tolerated, repeat bmp, (2) Displacement of vascular dialysis catheter Current Visit: Yes Status: Acute Qualifiers: Encounter type: initial encounter Qualified Code(s): T82.42XA - Displacement of vascular dialysis catheter, initial encounter Plan to address problem: Vascular surgery consulted, pending dialysis catheter placement. (3) Thrombocytopenia Current Visit: Yes Status: Acute Plan to address problem: supportive care, cbc, no active bleeding. (4) Acidosis Current Visit: Yes Status: Acute Plan to address problem: IVF resuscitation therapy as tolerated, supportive care, repeat bmp, (5) DVT prophylaxis Current Visit: Yes Status: Acute Plan to address problem: SCD to BLE while in bed, hold anticoagulation due to thrombocytopenia
--- NOTE | 2019-02-17 13:56 | Consultation ---
History of Present Illness - Reason for Consult end stage renal disease - History of Present Illness 53-year-old gentleman with medical history significant for hypertension, end- stage renal disease on hemodialysis Saturday lives [facility] admitted with complaints of removing his PermCath. Last dialysis was labs notable for some acidosis he denies any shortness of breath does have significant bruising also has bloodsoaked dressing at PermCath site. No lower extremity edema he denies any orthopnea PND denies any fevers or chills Past History Past Medical History: denies: acute [place], atrial fib Medications and Allergies Allergies Allergy/AdvReac Type Severity Reaction Status Date / Time morphine Allergy Unknown Verified 02/17/19 08:48 No Known Drug Allergies Allergy Unknown Verified 06/24/18 10:40 Home Medications Medication Instructions Recorded Confirmed Last Taken Type Acidophilus 175 mg Capsule 100 mg PO BID 07/08/17 02/17/19 06/26/18 06:00 History 100 mg Benadryl CAP 25 mg PO Q12H PRN 07/08/17 02/17/19 03/16/18 History Folic Acid 1 mg PO DAILY 07/08/17 02/17/19 06/26/18 06:00 History Lantus VIAL 20 units SQ QHS 07/08/17 02/17/19 06/25/18 21:00 History Lomotil 2.5-0.025 mg Tablet 2.5 mg PO Q6H PRN 07/08/17 02/17/19 03/16/18 History Metoprolol Tartrate 25 mg PO Q12H 07/08/17 02/17/19 06/26/18 06:00 History 25 mg NovoLOG Flexpen 3 units SQ AC 07/08/17 02/17/19 06/25/18 21:00 History Phoslo 667 mg PO TID 07/08/17 02/17/19 06/25/18 21:00 History 667 mg Remeron 15 mg PO QHS 07/08/17 02/17/19 06/25/18 21:00 History 15 mg Synthroid 25 mcg PO QAM 07/08/17 02/17/19 06/26/18 06:00 History 25 mcg Thiamine HCl 100 mg PO DAILY 07/08/17 02/17/19 06/26/18 06:00 History 100 mg Losartan [Cozaar] 50 mg PO QDAY 03/17/18 02/17/19 05/06/18 History 50 mg Spironolactone [Aldactone] 50 mg PO QDAY 03/17/18 02/17/19 06/26/18 06:00 History 25 mg Cholestyramine/Aspartame 210 gm PO QDAY 02/17/19 02/17/19 Unknown History [Cholestyramine Light Powder] Insulin Aspart (Nf) [Novolog] 0 unit SQ AC 02/17/19 02/17/19 Unknown History Loperamide HCl [Imodium A-D] 2 mg PO QDAY PRN 02/17/19 02/17/19 Unknown History Review of Systems Constitutional: no weight loss, no weight gain, no fever, no chills Ears, nose, mouth and throat: no deferred, no ear pain, no ear discharge Cardiovascular: no chest pain, no orthopnea Respiratory: no cough, no cough with sputum Gastrointestinal: no abdominal pain, no nausea, no vomiting Genitourinary Male: no dysuria, no hematuria, no flank pain Rectal: no pain Musculoskeletal: no neck stiffness, no neck pain Integumentary: rash, blisters, unusual bruising, no deferred, no pruritis Neurological: no head injury, no transient paralysis Psychiatric: no anxiety, no memory loss Endocrine: no cold intolerance, no heat intolerance Hematologic/Lymphatic: easy bruising, easy bleeding Allergic/Immunologic: no urticaria, no allergic rhinitis Exam - Vital Signs Vital signs: Vital Signs Pulse Ox 100 02/17/19 08:38 - General Appearance General appearance: well-developed, well-nourished EENT: ATNC, PERRL Neck: Present: neck supple, trachea midline Respiratory: Clear to Ascultation Heart: regular, S1S2 Gastrointestinal: Present: normal, normoactive bowel sounds Integumentary: rash, ecchymotic Neurologic: alert and oriented x3, CN 3-12 intact Musculoskeletal: Absent: deferred Psychiatric: depressed Results - Lab Results 02/17/19 09:16 02/17/19 09:16 Most recent lab results Calcium 8.3 mg/dL (8.4-10.2) L 02/17/19 09:16 - Image Kidney/bladder ultrasound: image reviewed, other (I reviewed chest x-ray is clear) Assessment and Plan - Patient Problems (1) ESRD on hemodialysis Current Visit: Yes Status: Chronic Plan to address problem: End stage renal hemodialysis Awaiting placement of access Dialysis in the a.m. following access placement (2) Acidosis Current Visit: No Status: Acute Plan to address problem: Metabolic acidosis secondary to missed dialysis We'll add sodium bicarbonate Dialysis once access is placed (3) Anemia in chronic kidney disease Current Visit: No Status: Acute Qualifiers: Chronic kidney disease stage: on chronic dialysis Qualified Code(s): N18.6 - End stage renal disease; D63.1 - Anemia in chronic kidney disease; Z99.2 - Dependence on renal dialysis Plan to address problem: Mild anemia Hemoglobin 11.8 g per DL Monitor CBC No Indication for ANTHONY at this time (4) Thrombocytopenia Current Visit: No Status: Acute Plan to address problem: Thrombocytopenia Ensure bleeding precautions
[2019-02-17] MEDS: SODIUM BICARBONATE 650 MG TAB PO SCH ×2 (15:00→23:29)
--- NOTE | 2019-02-17 15:29 | Consultation ---
History of Present Illness - Reason for Consult Consult date: 02/17/19 Dialysis access malfunction - History of Present Illness 53 [facility] Res[facility] with ESRD on HD(T,R,Sa), HTN, DM, Nicotine Dependence, Debility presents to [facility] for elective vascular procedure and found to have infected AV Graft. Pt taken to OR and underwent removal of AV graft with repair of brachial vessels. Pt treated with IV antibiotic therapy in OR. Pt seen and evaluated uopn arrival to his room. Pt found to have ESRD. Pt resting comfortably at time of exam. Pt denies fever, chills, CP, palpitations, NVD, productive cough, or recent ill contacts. Pt is in his usual state of health. No reported nursing events. Nephrology consulted. Vascular consults it due to displaced dialysis access. Patient has limited ability to understand and does not know when he last had dialysis, although it was Saturday. Patient is not fluid overloaded. Covering his head with covers in order to allow him to sleep because he is "tired". ROS: Stated complaint: PULLED OUT DIALYSIS PORT Other details as noted in HPI Comment: All other systems reviewed and negative - Past Medical History Hx Hypertension: Yes Hx Heart Attack/AMI: No Hx Congestive Heart Failure: No Hx Diabetes: Yes Hx Renal Disease: Yes Hx Asthma: No Hx COPD: No Additional medical history: unable to walk due to weak leg muscles - Surgical History Additional Surgical History: vas cath to right chest wall - Social History Smoking Status: Unknown if ever smoked Past History Past Medical History: denies: acute [place], atrial fib Medications and Allergies Allergies Allergy/AdvReac Type Severity Reaction Status Date / Time morphine Allergy Unknown Verified 02/17/19 08:48 No Known Drug Allergies Allergy Unknown Verified 06/24/18 10:40 Home Medications Medication Instructions Recorded Confirmed Last Taken Type Acidophilus 175 mg Capsule 100 mg PO BID 07/08/17 02/17/19 06/26/18 06:00 History 100 mg Benadryl CAP 25 mg PO Q12H PRN 07/08/17 02/17/19 03/16/18 History Folic Acid 1 mg PO DAILY 07/08/17 02/17/19 06/26/18 06:00 History Lantus VIAL 20 units SQ QHS 07/08/17 02/17/19 06/25/18 21:00 History Lomotil 2.5-0.025 mg Tablet 2.5 mg PO Q6H PRN 07/08/17 02/17/19 03/16/18 History Metoprolol Tartrate 25 mg PO Q12H 07/08/17 02/17/19 06/26/18 06:00 History 25 mg NovoLOG Flexpen 3 units SQ AC 07/08/17 02/17/19 06/25/18 21:00 History Phoslo 667 mg PO TID 07/08/17 02/17/19 06/25/18 21:00 History 667 mg Remeron 15 mg PO QHS 07/08/17 02/17/19 06/25/18 21:00 History 15 mg Synthroid 25 mcg PO QAM 07/08/17 02/17/19 06/26/18 06:00 History 25 mcg Thiamine HCl 100 mg PO DAILY 07/08/17 02/17/19 06/26/18 06:00 History 100 mg Losartan [Cozaar] 50 mg PO QDAY 03/17/18 02/17/19 05/06/18 History 50 mg Spironolactone [Aldactone] 50 mg PO QDAY 03/17/18 02/17/19 06/26/18 06:00 History 25 mg Cholestyramine/Aspartame 210 gm PO QDAY 02/17/19 02/17/19 Unknown History [Cholestyramine Light Powder] Insulin Aspart (Nf) [Novolog] 0 unit SQ AC 02/17/19 02/17/19 Unknown History Loperamide HCl [Imodium A-D] 2 mg PO QDAY PRN 02/17/19 02/17/19 Unknown History Active Meds: Active Medications Sodium Bicarbonate (Sodium Bicarbonate) 1,300 mg PO BID MAGDALENE Review of Systems ROS unobtainable: due to mental status Exam - Constitutional Vitals: Temp Pulse Resp BP Pulse Ox 97.5 F L 72 19 142/76 100 02/17/19 10:58 02/17/19 10:45 02/17/19 10:45 02/17/19 10:45 02/17/19 10:45 General appearance: Present: no acute distress, other (demented) - EENT Eyes: Present: EOM intact ENT: hearing intact - Respiratory Respiratory effort: normal - Abdominal General gastrointestinal: Present: soft, non-tender - Psychiatric Psychiatric: no intact judgment & insight, no memory intact, cooperative Results - Labs CBC & Chem 7: 02/17/19 09:16 02/17/19 09:16 Labs: Abnormal lab results 02/17/19 02/17/19 02/17/19 Range/Units 09:16 09:16 09:16 WBC 4.0 L (4.5-11.0) K/mm3 MCV 95 H (84-94) fl Plt Count 33 L (140-440) K/mm3 Lymph # 0.6 L (1.2-5.4) K/mm3 Seg Neutrophils % 76.4 H (40.0-70.0) % PT 15.3 H (12.2-14.9) Sec. INR 1.22 H (0.87-1.13) VBG pH (7.320-7.420) Carbon Dioxide 13 L (22-30) mmol/L BUN 70 H (9-20) mg/dL Creatinine 7.8 H (0.8-1.5) mg/dL Calcium 8.3 L (8.4-10.2) mg/dL 02/17/19 Range/Units 11:46 WBC (4.5-11.0) K/mm3 MCV (84-94) fl Plt Count (140-440) K/mm3 Lymph # (1.2-5.4) K/mm3 Seg Neutrophils % (40.0-70.0) % PT (12.2-14.9) Sec. INR (0.87-1.13) VBG pH 7.212 L (7.320-7.420) Carbon Dioxide (22-30) mmol/L BUN (9-20) mg/dL Creatinine (0.8-1.5) mg/dL Calcium (8.4-10.2) mg/dL Assessment and Plan 53-year-old demented male with multiple medical issues including end-stage renal disease. The patient's PermCath was displaced from unclear cause. Patient came in hypothermic, with leukopenia with left shift. Severe thrombocytopenia also noted. We'll allow patient to improve overnight. Plan will be to make patient nothing by mouth after midnight for catheter placement tomorrow, possibly from the old track in order to avoid making a new tract given severe thrombocytopenia.
[2019-02-17] MEDS ORDERED: ONDANSETRON 4 MG/2 ML INJ IV PRN (16:16)
[2019-02-17] MEDS ORDERED: ALBUTEROL 2.5 MG/3 ML NEBU IH PRN (16:16)
[2019-02-17] MEDS ORDERED: BENADRYL 25 MG PO PRN (16:17)
[2019-02-17] MEDS ORDERED: LOPERAMIDE 2 MG CAP PO PRN (16:17)
[2019-02-17] MEDS ORDERED: DIPHENOXYLATE PO PRN (16:17)
[2019-02-17] MEDS ORDERED: ATROPINE PO PRN (16:17)
[2019-02-17] MEDS ORDERED: NON-FORMULARY EACH (Metoprolol Tartrate 25 MG) PO SCH (16:30)
[2019-02-17] MEDS ORDERED: DIPHENOXYLATE/ATROPINE TAB PO PRN (16:34)
[2019-02-17] MEDS ORDERED: SODIUM CHLORIDE 0.9% 100 ML IV PRN (17:33)
[2019-02-17] MEDS ORDERED: CALCIUM ACETATE 667 MG CAP PO SCH (20:00)
[2019-02-17] MEDS ORDERED: PHOSLO 667 MG PO SCH (20:00)
[2019-02-17] MEDS: METOPROLOL TARTRATE 25 MG TAB PO SCH ×2 (20:01→23:34)
[2019-02-17] MEDS: CALCIUM ACETATE 667 MG CAP PO SCH (20:02)
[2019-02-17] MEDS: diphenhydrAMINE 25 MG CAP PO PRN (20:03)
[2019-02-17] MEDS: ACETAMINOPHEN 325 MG TAB PO PRN (20:03)
[2019-02-17 21:49] LABS: Hepatitis B Surface Antigen Non-Reactive (Negative); Hepatitis C Virus Antibody Non-Reactive (NonReactive)
[2019-02-17] MEDS ORDERED: ACIDOPHILUS PO SCH (22:00)
[2019-02-17] MEDS ORDERED: REMERON 15 MG PO SCH (22:00)
[2019-02-17] MEDS ORDERED: ALPRAZolam 0.25 MG TAB PO ONE (23:00)
[2019-02-17] MEDS ORDERED: LORazepam 2 MG/ML VIAL IV ONE (23:30)
[2019-02-17] MEDS: LACTOBACILLUS RHAMNOSUS GG 1 EACH CAP PO SCH (23:30)
[2019-02-17] MEDS: MIRTAZAPINE 15 MG TAB PO SCH (23:30)
[2019-02-18 06:13] LABS: Calcium 7.9 mg/dL (8.4-10.2)
[2019-02-18] MEDS ORDERED: DEXTROSE 50% IN WATER (25GM) 50 ML VIAL IV ONE (06:24)
[2019-02-18] MEDS ORDERED: DEXTROSE 50% IN WATER (25GM) 50 ML SYRINGE IV ONE (06:32)
[2019-02-18] MEDS: LEVOTHYROXINE 25 MCG TAB PO SCH (06:47)
[2019-02-18 09:20] LABS: Hematocrit 28.5 % (35.5-45.6); Hemoglobin 9.6 gm/dl (11.8-15.2); Mean Corpuscular HGB Conc 34 % (32-34); Mean Corpuscular Volume 92 fl (84-94); Red Blood Count 3.08 M/mm3 (3.65-5.03); Red Cell Distribution Width 14.7 % (13.2-15.2)
[2019-02-18 09:31] LABS: Platelet Count 25 K/mm3 (140-440)
[2019-02-18] MEDS: CALCIUM ACETATE 667 MG CAP PO SCH ×3 (09:41→21:09)
[2019-02-18] MEDS: SODIUM BICARBONATE 650 MG TAB PO SCH (09:42)
[2019-02-18] MEDS ORDERED: THIAMINE HCL 100 MG PO SCH (10:00)
[2019-02-18] MEDS ORDERED: [UNRECOGNIZED DRUG - OTHER] PO SCH (10:00)
[2019-02-18] MEDS ORDERED: CHOLESTYRAMINE PO SCH (10:00)
[2019-02-18] MEDS ORDERED: SYNTHROID 25 MCG PO SCH (10:00)
[2019-02-18] MEDS ORDERED: FOLIC ACID 1 MG PO SCH (10:00)
[2019-02-18 10:05] LABS: Basophils % (Manual) 0 % (0.0-1.8); Total Cells Counted 100
[2019-02-18 10:06] LABS: Macrocytosis Few; Ovalocytes Few
[2019-02-18 10:07] LABS: Platelet Estimate Consistent w Auto
--- NOTE | 2019-02-18 11:50 | Progress Note ---
Assessment and Plan Assessment and plan: ESRD (end stage renal disease) Current Visit: Yes Status: Acute Plan to address problem: Nephrology consulted in ED, dialysis as per renal team S/P dialysis catheter replacement, strict I/O, monitor uop q shift, avoid nephrotoxic agents, renal diet as tolerated, repeat bmp, Displacement of vascular dialysis catheter Current Visit: Yes Status: Acute Qualifiers: Encounter type: initial encounter Qualified Code(s): T82.42XA - Displacement of vascular dialysis catheter, initial encounter Plan to address problem: Vascular surgery consulted, pending dialysis catheter placement. Thrombocytopenia Current Visit: Yes Status: Acute Plan to address problem: supportive care, cbc, no active bleeding. Acidosis Current Visit: Yes Status: Acute Plan to address problem: IVF resuscitation therapy as tolerated, supportive care, repeat bmp, DVT prophylaxis Current Visit: Yes Status: Acute Plan to address problem: SCD to BLE while in bed, hold anticoagulation due to thrombocytopenia History Interval history: Patient seen and examined medical records reviewed Admitted with displaced dialysis catheter Vascular evaluated possible catheter placement today Patient not in acute distress Vital signs noted Hospitalist Physical - Constitutional Vitals: Temp Pulse Resp BP Pulse Ox 98.1 F 65 18 126/65 99 02/18/19 05:45 02/18/19 09:13 02/18/19 05:45 02/18/19 05:45 02/18/19 07:53 General appearance: Present: mild distress, cachectic, disheveled - EENT Eyes: Present: PERRL, EOM intact - Neck Neck: Present: supple, normal ROM - Respiratory Respiratory effort: normal Respiratory: bilateral: diminished, rales, negative: rhonchi, wheezing - Cardiovascular Rhythm: regular Heart Sounds: Present: S1 & S2 - Extremities Extremities: no ischemia, No edema - Abdominal General gastrointestinal: soft, non-tender, non-distended, normal bowel sounds - Integumentary Integumentary: Present: clear, warm - Psychiatric Psychiatric: appropriate mood/affect, cooperative - Neurologic Neurologic: CNII-XII intact, moves all extremities Results - Labs CBC & Chem 7: 02/18/19 07:55 02/18/19 07:08 Labs: Laboratory Last Values WBC 2.9 K/mm3 (4.5-11.0) L 02/18/19 07:55 RBC 3.08 M/mm3 (3.65-5.03) L 02/18/19 07:55 Hgb 9.6 gm/dl (11.8-15.2) L 02/18/19 07:55 Hct 28.5 % (35.5-45.6) L D 02/18/19 07:55 MCV 92 fl (84-94) 02/18/19 07:55 MCH 31 pg (28-32) 02/18/19 07:55 MCHC 34 % (32-34) 02/18/19 07:55 RDW 14.7 % (13.2-15.2) 02/18/19 07:55 Plt Count 25 K/mm3 (140-440) L 02/18/19 07:55 Lymph % (Auto) 14.6 % (13.4-35.0) 02/17/19 09:16 [place] % (Auto) 5.7 % (0.0-7.3) 02/17/19 09:16 Eos % (Auto) 2.5 % (0.0-4.3) 02/17/19 09:16 Baso % (Auto) 0.8 % (0.0-1.8) 02/17/19 09:16 Lymph # 0.6 K/mm3 (1.2-5.4) L 02/17/19 09:16 [place] # 0.2 K/mm3 (0.0-0.8) 02/17/19 09:16 Eos # 0.1 K/mm3 (0.0-0.4) 02/17/19 09:16 Baso # 0.0 K/mm3 (0.0-0.1) 02/17/19 09:16 Add Manual Diff Complete 02/18/19 07:55 Total Counted 100 02/18/19 07:55 Seg Neutrophils % 76.4 % (40.0-70.0) H 02/17/19 09:16 Seg Neuts % (Manual) 84.0 % (40.0-70.0) H 02/18/19 07:55 Band Neutrophils % 0 % 02/18/19 07:55 Lymphocytes % (Manual) 10.0 % (13.4-35.0) L 02/18/19 07:55 Reactive Lymphs % (Man) 0 % 02/18/19 07:55 Monocytes % (Manual) 3.0 % (0.0-7.3) 02/18/19 07:55 Eosinophils % (Manual) 3.0 % (0.0-4.3) 02/18/19 07:55 Basophils % (Manual) 0 % (0.0-1.8) 02/18/19 07:55 Metamyelocytes % 0 % 02/18/19 07:55 Myelocytes % 0 % 02/18/19 07:55 Promyelocytes % 0 % 02/18/19 07:55 Blast Cells % 0 % 02/18/19 07:55 Nucleated RBC % Not Reportable 02/18/19 07:55 Seg Neutrophils # 3.1 K/mm3 (1.8-7.7) 02/17/19 09:16 Seg Neutrophils # Man 2.4 K/mm3 (1.8-7.7) 02/18/19 07:55 Band Neutrophils # 0.0 K/mm3 02/18/19 07:55 Lymphocytes # (Manual) 0.3 K/mm3 (1.2-5.4) L 02/18/19 07:55 Abs React Lymphs (Man) 0.0 K/mm3 02/18/19 07:55 Monocytes # (Manual) 0.1 K/mm3 (0.0-0.8) 02/18/19 07:55 Eosinophils # (Manual) 0.1 K/mm3 (0.0-0.4) 02/18/19 07:55 Basophils # (Manual) 0.0 K/mm3 (0.0-0.1) 02/18/19 07:55 Metamyelocytes # 0.0 K/mm3 02/18/19 07:55 Myelocytes # 0.0 K/mm3 02/18/19 07:55 Promyelocytes # 0.0 K/mm3 02/18/19 07:55 Blast Cells # 0.0 K/mm3 02/18/19 07:55 WBC Morphology Not Reportable 02/18/19 07:55 Hypersegmented Neuts Not Reportable 02/18/19 07:55 Hyposegmented Neuts Not Reportable 02/18/19 07:55 Hypogranular Neuts Not Reportable 02/18/19 07:55 Smudge Cells Not Reportable 02/18/19 07:55 Toxic Granulation Not Reportable 02/18/19 07:55 Toxic Vacuolation Not Reportable 02/18/19 07:55 Dohle Bodies Not Reportable 02/18/19 07:55 Pelger-Huet Anomaly Not Reportable 02/18/19 07:55 Reyes Rods Not Reportable 02/18/19 07:55 Platelet Estimate Consistent w auto 02/18/19 07:55 Clumped Platelets Not Reportable 02/18/19 07:55 Plt Clumps, EDTA Not Reportable 02/18/19 07:55 Large Platelets Not Reportable 02/18/19 07:55 Giant Platelets Not Reportable 02/18/19 07:55 Platelet Satelliting Not Reportable 02/18/19 07:55 Plt Morphology Comment Not Reportable 02/18/19 07:55 RBC Morphology Not Reportable 02/18/19 07:55 Dimorphic RBCs Not Reportable 02/18/19 07:55 Polychromasia Not Reportable 02/18/19 07:55 Hypochromasia Not Reportable 02/18/19 07:55 Poikilocytosis Not Reportable 02/18/19 07:55 Anisocytosis Not Reportable 02/18/19 07:55 Microcytosis Not Reportable 02/18/19 07:55 Macrocytosis Few 02/18/19 07:55 Spherocytes Not Reportable 02/18/19 07:55 Pappenheimer Bodies Not Reportable 02/18/19 07:55 Sickle Cells Not Reportable 02/18/19 07:55 Target Cells Not Reportable 02/18/19 07:55 Tear Drop Cells Not Reportable 02/18/19 07:55 Ovalocytes Few 02/18/19 07:55 Helmet Cells Not Reportable 02/18/19 07:55 [place] Bodies Not Reportable 02/18/19 07:55 [place] Rings Not Reportable 02/18/19 07:55 [place] Cells Not Reportable 02/18/19 07:55 Bite Cells Not Reportable 02/18/19 07:55 Crenated Cell Not Reportable 02/18/19 07:55 Elliptocytes Not Reportable 02/18/19 07:55 Acanthocytes (Spur) Not Reportable 02/18/19 07:55 Rouleaux Not Reportable 02/18/19 07:55 Hemoglobin C Crystals Not Reportable 02/18/19 07:55 Schistocytes Not Reportable 02/18/19 07:55 Malaria parasites Not Reportable 02/18/19 07:55 João Bodies Not Reportable 02/18/19 07:55 Hem Pathologist Commnt No 02/18/19 07:55 PT 15.3 Sec. (12.2-14.9) H 02/17/19 09:16 INR 1.22 (0.87-1.13) H 02/17/19 09:16 APTT 33.5 Sec. (24.2-36.6) 02/17/19 09:16 VBG pH 7.212 (7.320-7.420) L 02/17/19 11:46 Sodium 143 mmol/L (137-145) 02/18/19 05:01 Potassium 3.8 mmol/L (3.6-5.0) 02/18/19 05:01 Chloride 106.8 mmol/L (98-107) 02/18/19 05:01 Carbon Dioxide 16 mmol/L (22-30) L 02/18/19 05:01 Anion Gap 24 mmol/L 02/18/19 05:01 BUN 76 mg/dL (9-20) H 02/18/19 05:01 Creatinine 9.5 mg/dL (0.8-1.5) H 02/18/19 05:01 Estimated GFR 7 ml/min 02/18/19 05:01 BUN/Creatinine Ratio 8 % 02/18/19 05:01 Glucose 161 mg/dL (75-100) H 02/18/19 07:08 POC Glucose 190 (70-105) H 02/18/19 07:12 Lactic Acid 1.20 mmol/L (0.7-2.0) 02/17/19 11:46 Calcium 7.9 mg/dL (8.4-10.2) L 02/18/19 05:01 Hepatitis A IgM Ab Non-reactive (NonReactive) 02/17/19 20:43 Hep Bs Antigen Non-reactive (Negative) 02/17/19 20:43 Hep B Core IgM Ab Reactive (NonReactive) A 02/17/19 20:43 Hepatitis C Antibody Non-reactive (NonReactive) 02/17/19 20:43 Active Medications - Current Medications Current Medications: Generic Name Dose Route Start Last Admin Trade Name Freq PRN Reason Stop Dose Admin Acetaminophen 650 mg 02/17/19 16:16 02/17/19 20:03 Tylenol PO 650 mg Q4H PRN Administration Pain MILD(1-3)/Fever >100.5/WONG Albuterol 2.5 mg 02/17/19 16:16 Proventil IH Q4HRT PRN Shortness Of Breath Calcium Acetate 667 mg 02/18/19 12:00 Phoslo PO TIDWM MAGDALENE Cholestyramine Resin 4 gm 02/18/19 10:00 Questran PO DAILY MAGDALENE Diphenhydramine HCl 25 mg 02/17/19 16:33 02/17/19 20:03 Benadryl PO 25 mg Q12H PRN Administration Itching Diphenoxylate HCl/Atropine 1 tab 02/17/19 16:34 Lomotil PO Q6H PRN Diarrhea Folic Acid 1 mg 02/18/19 10:00 Folvite PO DAILY [facility] Sodium Chloride 100 mls @ 999 mls/hr 02/17/19 17:33 Nacl 0.9% IV RAJEEV PRN Hypotension Lactobacillus Rhamnosus 1 each 02/17/19 22:00 02/17/19 23:30 Culturelle PO 1 each BID MAGDALENE Administration Levothyroxine Sodium 25 mcg 02/18/19 06:00 02/18/19 06:47 Synthroid PO 25 mcg DAILY@0600 MAGDALENE Administration Loperamide HCl 2 mg 02/17/19 16:17 Imodium PO QDAY PRN Diarrhea Losartan Potassium 50 mg 02/18/19 10:00 Cozaar PO QDAY [facility] Metoprolol Tartrate 25 mg 02/17/19 17:00 02/17/19 23:34 Metoprolol PO 25 mg Q12HR MAGDALENE Administration Mirtazapine 15 mg 02/17/19 22:00 02/17/19 23:30 Remeron PO 15 mg QHS MAGDALENE Administration Ondansetron HCl 4 mg 02/17/19 16:16 Zofran IV Q8H PRN Nausea And Vomiting Sodium Bicarbonate 1,300 mg 02/17/19 15:00 02/18/19 09:42 Sodium Bicarbonate PO Not Given BID MAGDALENE Sodium Chloride 10 ml 02/17/19 22:00 02/18/19 10:00 Sodium Chloride Flush Syringe 10 Ml IV 10 ml BID MAGDALENE Administration Sodium Chloride 10 ml 02/17/19 16:16 Sodium Chloride Flush Syringe 10 Ml IV PRN PRN LINE FLUSH Spironolactone 50 mg 02/18/19 10:00 Aldactone PO QDAY MAGDALENE Thiamine HCl 100 mg 02/18/19 10:00 Vitamin B-1 PO QDAY MAGDALENE
[2019-02-18] MEDS ORDERED: SODIUM CHLORIDE 0.9% 500 ML 500 ML ONE (13:39)
[2019-02-18] MEDS ORDERED: fentaNYL 100 MCG/2 ML INJ ONE (13:54)
[2019-02-18] MEDS ORDERED: HEPARIN 10,000 UNITS/10 ML VIAL ONE (13:54)
[2019-02-18] MEDS ORDERED: HEPARIN/NS 5000 UNIT/500ML 500 ML IR ONE (13:54)
[2019-02-18] MEDS ORDERED: MIDAZOLAM 2 MG/2 ML INJ ONE (13:54)
[2019-02-18] MEDS ORDERED: ceFAZolin/Water 2 GM/20 ML 2 GM/20 ML SYRINGE IV ONE (13:55)
[2019-02-18] MEDS: LIDOCAINE (2%) 20 MG/1 ML VIAL 20 ML MDV INFILTRATI ONE ×2 (14:31→14:58)
--- NOTE | 2019-02-18 15:16 | Post Operative Note ---
Pre-op diagnosis: ESRD Post-op diagnosis: same Findings: Left IJ Permcath Insertion Diagnostic Venogram via Right IJ Vein Access Anesthesia: MAC, local Surgeon: TOMMY BRAND Estimated blood loss: minimal Pathology: none Condition: stable Disposition: floor
--- NOTE | 2019-02-18 16:42 | Progress Note ---
Assessment and Plan - Patient Problems (1) ESRD on hemodialysis Current Visit: Yes Status: Chronic Plan to address problem: End stage renal hemodialysis Status post placement of access Dialysis today and tomorrow (2) Acidosis Current Visit: No Status: Acute Plan to address problem: Metabolic acidosis secondary to missed dialysis Received sodium bicarbonate Will initiate dialysis (3) Anemia in chronic kidney disease Current Visit: No Status: Acute Qualifiers: Chronic kidney disease stage: on chronic dialysis Qualified Code(s): N18.6 - End stage renal disease; D63.1 - Anemia in chronic kidney disease; Z99.2 - Dependence on renal dialysis Plan to address problem: Mild anemia Hemoglobin 11.8 g per DL Monitor CBC No Indication for ANTHONY at this time (4) Thrombocytopenia Current Visit: No Status: Acute Plan to address problem: Thrombocytopenia Ensure bleeding precautions Subjective Interval history: 53-year-old gentleman with medical history significant for hypertension, end- stage renal disease on hemodialysis Saturday lives [facility] admitted with complaints of removing his PermCath. Last dialysis was labs notable for some acidosis he denies any shortness of breath does have significant bruising also has bloodsoaked dressing at PermCath site. No lower extremity edema he denies any orthopnea PND denies any fevers or chills I attest I saw the patient on dialysis Status post PermCath placement Objective - Vital Signs Vital signs: Vital Signs - 12hr 02/18/19 02/18/19 02/18/19 05:45 07:53 09:13 Temperature 98.1 F Pulse Rate 65 Pulse Rate [ 65 Left Apical] Respiratory 18 Rate Blood Pressure 126/65 O2 Sat by Pulse 99 99 Oximetry 02/18/19 02/18/19 11:31 16:00 Temperature 98.5 F 97.6 F Pulse Rate 61 57 L Pulse Rate [ Left Apical] Respiratory 18 16 Rate Blood Pressure 128/69 118/73 O2 Sat by Pulse 99 Oximetry - General Appearance General appearance: well-developed, well-nourished EENT: ATNC, PERRL Neck: no JVD Respiratory: Present: Clear to Ascultation Cardiology: regular, S1S2 Gastrointestinal: normal, normoactive bowel sounds Integumentary: rash, erythema, ecchymotic Neurologic: confused, CN 3-12 intact Psychiatric: mood/affect appropriate, depressed - Lab 02/18/19 07:55 02/18/19 07:08 Most recent lab results Calcium 7.9 mg/dL (8.4-10.2) L 02/18/19 05:01 - Imaging Chest x-ray: image reviewed (reviewed chest x-ray without edema) Medications & Allergies - Medications Allergies/Adverse Reactions: Allergies morphine Allergy (Verified 02/17/19 08:48) Unknown Home Medications: Home Medications Medication Instructions Recorded Confirmed Last Taken Type Acidophilus 175 mg Capsule 100 mg PO BID 07/08/17 02/17/19 06/26/18 06:00 History 100 mg Benadryl CAP 25 mg PO Q12H PRN 07/08/17 02/17/19 03/16/18 History Folic Acid 1 mg PO DAILY 07/08/17 02/17/19 06/26/18 06:00 History Lantus VIAL 20 units SQ QHS 07/08/17 02/17/19 06/25/18 21:00 History Lomotil 2.5-0.025 mg Tablet 2.5 mg PO Q6H PRN 07/08/17 02/17/19 03/16/18 History Metoprolol Tartrate 25 mg PO Q12H 07/08/17 02/17/19 06/26/18 06:00 History 25 mg NovoLOG Flexpen 3 units SQ AC 07/08/17 02/17/19 06/25/18 21:00 History Phoslo 667 mg PO TID 07/08/17 02/17/19 06/25/18 21:00 History 667 mg Remeron 15 mg PO QHS 07/08/17 02/17/19 06/25/18 21:00 History 15 mg Synthroid 25 mcg PO QAM 07/08/17 02/17/19 06/26/18 06:00 History 25 mcg Thiamine HCl 100 mg PO DAILY 07/08/17 02/17/19 06/26/18 06:00 History 100 mg Losartan [Cozaar] 50 mg PO QDAY 03/17/18 02/17/19 05/06/18 History 50 mg Spironolactone [Aldactone] 50 mg PO QDAY 03/17/18 02/17/19 06/26/18 06:00 History 25 mg Cholestyramine/Aspartame 210 gm PO QDAY 02/17/19 02/17/19 Unknown History [Cholestyramine Light Powder] Insulin Aspart (Nf) [Novolog] 0 unit SQ AC 02/17/19 02/17/19 Unknown History Loperamide HCl [Imodium A-D] 2 mg PO QDAY PRN 02/17/19 02/17/19 Unknown History Active Medications: Generic Name Dose Route Start Last Admin Trade Name Freq PRN Reason Stop Dose Admin Acetaminophen 650 mg 02/17/19 16:16 02/17/19 20:03 Tylenol PO 650 mg Q4H PRN Administration Pain MILD(1-3)/Fever >100.5/WONG Albuterol 2.5 mg 02/17/19 16:16 Proventil IH Q4HRT PRN Shortness Of Breath Calcium Acetate 667 mg 02/18/19 12:00 Phoslo PO TIDWM MAGDALENE Cholestyramine Resin 4 gm 02/18/19 10:00 Questran PO DAILY MAGDALENE Diphenhydramine HCl 25 mg 02/17/19 16:33 02/17/19 20:03 Benadryl PO 25 mg Q12H PRN Administration Itching Diphenoxylate HCl/Atropine 1 tab 02/17/19 16:34 Lomotil PO Q6H PRN Diarrhea Folic Acid 1 mg 02/18/19 10:00 Folvite PO DAILY MAGDALENE Sodium Chloride 100 mls @ 999 mls/hr 02/17/19 17:33 Nacl 0.9% IV RAJEEV PRN Hypotension Sodium Chloride 500 mls @ 50 mls/hr 02/18/19 14:00 Nacl 0.9% 500 Ml IV DIRECT MAGDALENE Lactobacillus Rhamnosus 1 each 02/17/19 22:00 02/17/19 23:30 Culturelle PO 1 each BID MAGDALENE Administration Levothyroxine Sodium 25 mcg 02/18/19 06:00 02/18/19 06:47 Synthroid PO 25 mcg DAILY@0600 MAGDALENE Administration Loperamide HCl 2 mg 02/17/19 16:17 Imodium PO QDAY PRN Diarrhea Losartan Potassium 50 mg 02/18/19 10:00 Cozaar PO QDAY MAGDALENE Metoprolol Tartrate 25 mg 02/17/19 17:00 02/17/19 23:34 Metoprolol PO 25 mg Q12HR MAGDALENE Administration Mirtazapine 15 mg 02/17/19 22:00 02/17/19 23:30 Remeron PO 15 mg QHS MAGDALENE Administration Ondansetron HCl 4 mg 02/17/19 16:16 Zofran IV Q8H PRN Nausea And Vomiting Sodium Bicarbonate 1,300 mg 02/17/19 15:00 02/18/19 09:42 Sodium Bicarbonate PO Not Given BID MAGDALENE Sodium Chloride 10 ml 02/17/19 22:00 02/18/19 10:00 Sodium Chloride Flush Syringe 10 Ml IV 10 ml BID MAGDALENE Administration Sodium Chloride 10 ml 02/17/19 16:16 Sodium Chloride Flush Syringe 10 Ml IV PRN PRN LINE FLUSH Spironolactone 50 mg 02/18/19 10:00 Aldactone PO QDAY [facility] Thiamine HCl 100 mg 02/18/19 10:00 Vitamin B-1 PO QDAY MAGDALENE
[2019-02-18] MEDS: METOPROLOL TARTRATE 25 MG TAB PO SCH ×2 (16:54→22:29)
[2019-02-18] MEDS: LACTOBACILLUS RHAMNOSUS GG 1 EACH CAP PO SCH ×2 (16:54→22:29)
--- NOTE | 2019-02-18 18:26 | Operative Report ---
STAFF SURGEON: Dr. Heath Laureano. PREOPERATIVE DIAGNOSIS: End-stage renal disease. POSTOPERATIVE DIAGNOSIS: End-stage renal disease. PROCEDURE PERFORMED: 1. Left IJ Perm-A-Cath insertion. 2. Diagnostic venogram via right internal jugular vein access. 3. Monitor conscious sedation for 15 minutes. COMPLICATIONS: None. ESTIMATED BLOOD LOSS: Less than 10 mL. ANESTHESIA: Local MAC. INDICATIONS FOR PROCEDURE: This is a 53-year-old gentleman with end-stage renal disease, who has existing Perm-A-Cath via the right IJ had become dislodged and fell out. Therefore, vascular consultation was obtained for reinsertion of his catheter. DESCRIPTION OF PROCEDURE: After appropriate consent was obtained, the patient was brought back to the filling station laborer, placed on table in the supine position. Initially, the right neck and chest were prepped and draped in the usual sterile fashion with ChloraPrep. Appropriate timeout was performed indicating the correct patient, procedure, and site of procedure. I then began the intervention by obtaining percutaneous access of the right internal jugular vein using micropuncture access. It was noted that the wire was passing the right subclavian and so the micropuncture catheter was placed over the wire into the IJ wire and dilator were removed. 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 There was no reconstitution of the SVC. With this, the catheter was removed and digital compression was held at the access site. Once satisfied with hemostasis, appropriate dressing was placed and then the left neck and chest were prepped and draped in the usual sterile fashion with ChloraPrep, then proceeded to obtain access of the left internal jugular vein using micropuncture technique under ultrasound guidance, once we obtain access, needle was exchanged for a micropuncture sheath using Seldinger technique. The stiff J-wire was then placed through the catheter into the IVC. The catheter was removed. A stab incision was made on the anterior chest wall. A subcutaneous tunnel was made, bringing through a 32 cm straight Perm-A-Cath. The access site was serially dilated appropriately and then a sheath and dilator placed over the wire into the SVC. The wire and dilator were removed. The catheter was placed through the peel-away sheath with the tip of the catheter at the SVC right atrial junction. Both lumens aminah blood appropriately, were flushed with heparinized saline. Appropriate amount of heparin was placed in each port. Access site was then closed with deep subcutaneous layer with 3-0 Vicryl and then skin was approximated with 3-0 nylon. The catheter exit site was sutured closed with 3-0 nylon. Appropriate dressing was placed. The patient tolerated the procedure well, emerged from the conscious sedation and sent to recovery in stable condition. JOB# [id number] N/JACOBY
[2019-02-18] MEDS: SPIRONOLACTONE 25 MG TAB PO SCH (20:51)
[2019-02-18] MEDS: LOSARTAN 50 MG TAB PO SCH (20:51)
[2019-02-18] MEDS: FOLIC ACID 1 MG TAB PO SCH (20:52)
[2019-02-18] MEDS: CHOLESTYRAMINE (WITH SUGAR) 4 GM PACKET PO SCH (20:53)
[2019-02-18] MEDS: THIAMINE 100 MG TAB PO SCH (20:53)
[2019-02-18] MEDS: MIRTAZAPINE 15 MG TAB PO SCH (22:29)
[2019-02-19] MEDS ORDERED: SODIUM CHLORIDE 0.9% 250ML 250 ML IV ONE (05:58)
[2019-02-19] MEDS: LEVOTHYROXINE 25 MCG TAB PO SCH (06:10)
[2019-02-19] MEDS: CALCIUM ACETATE 667 MG CAP PO SCH ×3 (08:17→17:10)
[2019-02-19] MEDS: CHOLESTYRAMINE (WITH SUGAR) 4 GM PACKET PO SCH (11:45)
[2019-02-19] MEDS: THIAMINE 100 MG TAB PO SCH (11:46)
[2019-02-19] MEDS: SPIRONOLACTONE 25 MG TAB PO SCH (11:46)
[2019-02-19] MEDS: METOPROLOL TARTRATE 25 MG TAB PO SCH ×2 (11:47→21:56)
[2019-02-19] MEDS: LOSARTAN 50 MG TAB PO SCH (11:48)
[2019-02-19] MEDS: LACTOBACILLUS RHAMNOSUS GG 1 EACH CAP PO SCH ×2 (11:49→21:56)
[2019-02-19] MEDS: FOLIC ACID 1 MG TAB PO SCH (11:49)
--- NOTE | 2019-02-19 15:25 | Progress Note ---
Assessment and Plan - Patient Problems (1) ESRD on hemodialysis Current Visit: Yes Status: Chronic Plan to address problem: End stage renal hemodialysis Status post placement of access Patient is stable for discharge from renal perspective. (2) Acidosis Current Visit: No Status: Acute Plan to address problem: Metabolic acidosis secondary to missed dialysis Received sodium bicarbonate continue dialysis (3) Anemia in chronic kidney disease Current Visit: No Status: Acute Qualifiers: Chronic kidney disease stage: on chronic dialysis Qualified Code(s): N18.6 - End stage renal disease; D63.1 - Anemia in chronic kidney disease; Z99.2 - Dependence on renal dialysis Plan to address problem: Mild anemia Hemoglobin 11.8 g per DL Monitor CBC No Indication for ANTHONY at this time (4) Thrombocytopenia Current Visit: No Status: Acute Plan to address problem: Thrombocytopenia Ensure bleeding precautions Subjective Interval history: 53-year-old gentleman with medical history significant for hypertension, end- stage renal disease on hemodialysis Saturday lives at [facility] admitted with complaints of removing his PermCath. Last dialysis was labs notable for some acidosis he denies any shortness of breath does have significant bruising also has bloodsoaked dressing at PermCath site. No lower extremity edema he denies any orthopnea PND denies any fevers or chills Patient seen today I attest I saw the patient on dialysis denies any complaints , no shortness of breath or edema. Objective - Vital Signs Vital signs: Vital Signs - 12hr 02/19/19 02/19/19 02/19/19 05:43 05:54 09:40 Temperature 97.0 F L Pulse Rate 73 75 Respiratory 16 18 Rate Blood Pressure 79/44 86/37 102/58 O2 Sat by Pulse 100 98 Oximetry 02/19/19 02/19/19 02/19/19 10:00 11:24 11:42 Temperature 98.5 F Pulse Rate 77 79 Respiratory 18 Rate Blood Pressure 98/58 104/62 O2 Sat by Pulse 100 95 100 Oximetry 02/19/19 02/19/19 02/19/19 11:46 11:47 11:48 Temperature Pulse Rate 78 78 78 Respiratory Rate Blood Pressure 104/62 104/62 104/62 O2 Sat by Pulse Oximetry 02/19/19 13:10 Temperature 98.5 F Pulse Rate 74 Respiratory 18 Rate Blood Pressure 107/49 O2 Sat by Pulse Oximetry - General Appearance General appearance: frail, anxious EENT: ATNC, PERRL Neck: no JVD Respiratory: Present: Clear to Ascultation Cardiology: regular, S1S2 Gastrointestinal: normal, normoactive bowel sounds Integumentary: rash, erythema Neurologic: confused, CN 3-12 intact Psychiatric: depressed - Lab 02/18/19 07:55 02/18/19 07:08 Most recent lab results Calcium 7.9 mg/dL (8.4-10.2) L 02/18/19 05:01 - Imaging Chest x-ray: image reviewed (reviewed Chest x ray without edema. ) Medications & Allergies - Medications Allergies/Adverse Reactions: Allergies morphine Allergy (Verified 02/17/19 08:48) Unknown Home Medications: Home Medications Medication Instructions Recorded Confirmed Last Taken Type Acidophilus 175 mg Capsule 100 mg PO BID 07/08/17 02/17/19 06/26/18 06:00 History 100 mg Benadryl CAP 25 mg PO Q12H PRN 07/08/17 02/17/19 03/16/18 History Folic Acid 1 mg PO DAILY 07/08/17 02/17/19 06/26/18 06:00 History Lantus VIAL 20 units SQ QHS 07/08/17 02/17/19 06/25/18 21:00 History Lomotil 2.5-0.025 mg Tablet 2.5 mg PO Q6H PRN 07/08/17 02/17/19 03/16/18 History Metoprolol Tartrate 25 mg PO Q12H 07/08/17 02/17/19 06/26/18 06:00 History 25 mg NovoLOG Flexpen 3 units SQ AC 07/08/17 02/17/19 06/25/18 21:00 History Phoslo 667 mg PO TID 07/08/17 02/17/19 06/25/18 21:00 History 667 mg Remeron 15 mg PO QHS 07/08/17 02/17/19 06/25/18 21:00 History 15 mg Synthroid 25 mcg PO QAM 07/08/17 02/17/19 06/26/18 06:00 History 25 mcg Thiamine HCl 100 mg PO DAILY 07/08/17 02/17/19 06/26/18 06:00 History 100 mg Losartan [Cozaar] 50 mg PO QDAY 03/17/18 02/17/19 05/06/18 History 50 mg Spironolactone [Aldactone] 50 mg PO QDAY 03/17/18 02/17/19 06/26/18 06:00 History 25 mg Cholestyramine/Aspartame 210 gm PO QDAY 02/17/19 02/17/19 Unknown History [Cholestyramine Light Powder] Insulin Aspart (Nf) [Novolog] 0 unit SQ AC 02/17/19 02/17/19 Unknown History Loperamide HCl [Imodium A-D] 2 mg PO QDAY PRN 02/17/19 02/17/19 Unknown History Active Medications: Generic Name Dose Route Start Last Admin Trade Name Freq PRN Reason Stop Dose Admin Acetaminophen 650 mg 02/17/19 16:16 02/17/19 20:03 Tylenol PO 650 mg Q4H PRN Administration Pain MILD(1-3)/Fever >100.5/WONG Albuterol 2.5 mg 02/17/19 16:16 Proventil IH Q4HRT PRN Shortness Of Breath Calcium Acetate 667 mg 02/18/19 12:00 02/19/19 11:46 Phoslo PO 667 mg TIDWM MAGDALENE Administration Cholestyramine Resin 4 gm 02/18/19 10:00 02/19/19 11:45 Questran PO 4 gm DAILY MAGDALENE Administration Diphenhydramine HCl 25 mg 02/17/19 16:33 02/17/19 20:03 Benadryl PO 25 mg Q12H PRN Administration Itching Diphenoxylate HCl/Atropine 1 tab 02/17/19 16:34 Lomotil PO Q6H PRN Diarrhea Folic Acid 1 mg 02/18/19 10:00 02/19/19 11:49 Folvite PO 1 mg DAILY MAGDALENE Administration Sodium Chloride 100 mls @ 999 mls/hr 02/17/19 17:33 Nacl 0.9% IV RAJEEV PRN Hypotension Sodium Chloride 500 mls @ 50 mls/hr 02/18/19 14:00 Nacl 0.9% 500 Ml IV DIRECT MAGDALENE Lactobacillus Rhamnosus 1 each 02/17/19 22:00 02/19/19 11:49 Culturelle PO 1 each BID MAGDALENE Administration Levothyroxine Sodium 25 mcg 02/18/19 06:00 02/19/19 06:10 Synthroid PO 25 mcg DAILY@0600 MAGDALENE Administration Loperamide HCl 2 mg 02/17/19 16:17 Imodium PO QDAY PRN Diarrhea Losartan Potassium 50 mg 02/18/19 10:00 02/19/19 11:48 Cozaar PO 50 mg QDAY MAGDALENE Administration Metoprolol Tartrate 25 mg 02/17/19 17:00 02/19/19 11:47 Metoprolol PO 25 mg Q12HR MAGDALENE Administration Mirtazapine 15 mg 02/17/19 22:00 02/18/19 22:29 Remeron PO 15 mg QHS MAGDALENE Administration Ondansetron HCl 4 mg 02/17/19 16:16 Zofran IV Q8H PRN Nausea And Vomiting Sodium Chloride 10 ml 02/17/19 22:00 02/19/19 11:53 Sodium Chloride Flush Syringe 10 Ml IV 10 ml BID MAGDALENE Administration Sodium Chloride 10 ml 02/17/19 16:16 Sodium Chloride Flush Syringe 10 Ml IV PRN PRN LINE FLUSH Spironolactone 50 mg 02/18/19 10:00 02/19/19 11:46 Aldactone PO 50 mg QDAY MAGDALENE Administration Thiamine HCl 100 mg 02/18/19 10:00 02/19/19 11:46 Vitamin B-1 PO 100 mg QDAY MAGDALENE Administration
[2019-02-19] MEDS ORDERED: SODIUM CHLORIDE*PRIMING MACHINE ONLY FOR DIALYSIS MC ONE (18:12)
--- NOTE | 2019-02-19 18:17 | Progress Note ---
Assessment and Plan Assessment and plan: Displacement of vascular dialysis catheter Current Visit: Yes Status: Acute Vascular evaluated, left IJ permacath insertion ESRD (end stage renal disease) Current Visit: Yes Status: Acute S/P dialysis catheter replacement, HD per schedule, nephrology following Chronic thrombocytopenia Current Visit: Yes Status: Acute patient was evaluated by hematology oncology during past admission Closely monitor, platelet transfusion if needed Metabolic acidosis Current Visit: Yes Status: Acute IVF resuscitation therapy as tolerated, supportive care, repeat bmp, DVT prophylaxis Current Visit: Yes Status: Acute SCD to BLE while in bed, hold anticoagulation due to thrombocytopenia Monitor closely and adjust management as needed Discussed with nephrology, okay to discharge after dialysis today Patient is from [facility] planning per case management Plan of care reviewed with the patient and his nurse History Interval history: Patient seen and examined medical records reviewed Admitted with displaced dialysis catheter Vascular evaluated patient had catheter placement Scheduled for hemodialysis today Patient feels slightly better Vital signs noted Hospitalist Physical - Constitutional Vitals: Temp Pulse Resp BP Pulse Ox 97.7 F 74 18 138/76 100 02/19/19 17:23 02/19/19 17:23 02/19/19 17:23 02/19/19 17:23 02/19/19 17:23 General appearance: Present: no acute distress, cachectic, disheveled - EENT Eyes: Present: PERRL, EOM intact - Neck Neck: Present: supple, normal ROM - Respiratory Respiratory effort: normal Respiratory: bilateral: diminished, negative: rales, rhonchi, wheezing - Cardiovascular Rhythm: regular Heart Sounds: Present: S1 & S2 - Extremities Extremities: no ischemia, No edema - Abdominal General gastrointestinal: soft, non-tender, non-distended, normal bowel sounds - Integumentary Integumentary: Present: clear, warm - Psychiatric Psychiatric: appropriate mood/affect, cooperative - Neurologic Neurologic: CNII-XII intact Results - Labs CBC & Chem 7: 02/18/19 07:55 02/18/19 07:08 Labs: Laboratory Last Values WBC 2.9 K/mm3 (4.5-11.0) L 02/18/19 07:55 RBC 3.08 M/mm3 (3.65-5.03) L 02/18/19 07:55 Hgb 9.6 gm/dl (11.8-15.2) L 02/18/19 07:55 Hct 28.5 % (35.5-45.6) L D 02/18/19 07:55 MCV 92 fl (84-94) 02/18/19 07:55 MCH 31 pg (28-32) 02/18/19 07:55 MCHC 34 % (32-34) 02/18/19 07:55 RDW 14.7 % (13.2-15.2) 02/18/19 07:55 Plt Count 25 K/mm3 (140-440) L 02/18/19 07:55 Lymph % (Auto) 14.6 % (13.4-35.0) 02/17/19 09:16 Sargent % (Auto) 5.7 % (0.0-7.3) 02/17/19 09:16 Eos % (Auto) 2.5 % (0.0-4.3) 02/17/19 09:16 Baso % (Auto) 0.8 % (0.0-1.8) 02/17/19 09:16 Lymph # 0.6 K/mm3 (1.2-5.4) L 02/17/19 09:16 Sargent # 0.2 K/mm3 (0.0-0.8) 02/17/19 09:16 Eos # 0.1 K/mm3 (0.0-0.4) 02/17/19 09:16 Baso # 0.0 K/mm3 (0.0-0.1) 02/17/19 09:16 Add Manual Diff Complete 02/18/19 07:55 Total Counted 100 02/18/19 07:55 Seg Neutrophils % 76.4 % (40.0-70.0) H 02/17/19 09:16 Seg Neuts % (Manual) 84.0 % (40.0-70.0) H 02/18/19 07:55 Band Neutrophils % 0 % 02/18/19 07:55 Lymphocytes % (Manual) 10.0 % (13.4-35.0) L 02/18/19 07:55 Reactive Lymphs % (Man) 0 % 02/18/19 07:55 Monocytes % (Manual) 3.0 % (0.0-7.3) 02/18/19 07:55 Eosinophils % (Manual) 3.0 % (0.0-4.3) 02/18/19 07:55 Basophils % (Manual) 0 % (0.0-1.8) 02/18/19 07:55 Metamyelocytes % 0 % 02/18/19 07:55 Myelocytes % 0 % 02/18/19 07:55 Promyelocytes % 0 % 02/18/19 07:55 Blast Cells % 0 % 02/18/19 07:55 Nucleated RBC % Not Reportable 02/18/19 07:55 Seg Neutrophils # 3.1 K/mm3 (1.8-7.7) 02/17/19 09:16 Seg Neutrophils # Man 2.4 K/mm3 (1.8-7.7) 02/18/19 07:55 Band Neutrophils # 0.0 K/mm3 02/18/19 07:55 Lymphocytes # (Manual) 0.3 K/mm3 (1.2-5.4) L 02/18/19 07:55 Abs React Lymphs (Man) 0.0 K/mm3 02/18/19 07:55 Monocytes # (Manual) 0.1 K/mm3 (0.0-0.8) 02/18/19 07:55 Eosinophils # (Manual) 0.1 K/mm3 (0.0-0.4) 02/18/19 07:55 Basophils # (Manual) 0.0 K/mm3 (0.0-0.1) 02/18/19 07:55 Metamyelocytes # 0.0 K/mm3 02/18/19 07:55 Myelocytes # 0.0 K/mm3 02/18/19 07:55 Promyelocytes # 0.0 K/mm3 02/18/19 07:55 Blast Cells # 0.0 K/mm3 02/18/19 07:55 WBC Morphology Not Reportable 02/18/19 07:55 Hypersegmented Neuts Not Reportable 02/18/19 07:55 Hyposegmented Neuts Not Reportable 02/18/19 07:55 Hypogranular Neuts Not Reportable 02/18/19 07:55 Smudge Cells Not Reportable 02/18/19 07:55 Toxic Granulation Not Reportable 02/18/19 07:55 Toxic Vacuolation Not Reportable 02/18/19 07:55 Dohle Bodies Not Reportable 02/18/19 07:55 Pelger-Huet Anomaly Not Reportable 02/18/19 07:55 Reyes Rods Not Reportable 02/18/19 07:55 Platelet Estimate Consistent w auto 02/18/19 07:55 Clumped Platelets Not Reportable 02/18/19 07:55 Plt Clumps, EDTA Not Reportable 02/18/19 07:55 Large Platelets Not Reportable 02/18/19 07:55 Giant Platelets Not Reportable 02/18/19 07:55 Platelet Satelliting Not Reportable 02/18/19 07:55 Plt Morphology Comment Not Reportable 02/18/19 07:55 RBC Morphology Not Reportable 02/18/19 07:55 Dimorphic RBCs Not Reportable 02/18/19 07:55 Polychromasia Not Reportable 02/18/19 07:55 Hypochromasia Not Reportable 02/18/19 07:55 Poikilocytosis Not Reportable 02/18/19 07:55 Anisocytosis Not Reportable 02/18/19 07:55 Microcytosis Not Reportable 02/18/19 07:55 Macrocytosis Few 02/18/19 07:55 Spherocytes Not Reportable 02/18/19 07:55 Pappenheimer Bodies Not Reportable 02/18/19 07:55 Sickle Cells Not Reportable 02/18/19 07:55 Target Cells Not Reportable 02/18/19 07:55 Tear Drop Cells Not Reportable 02/18/19 07:55 Ovalocytes Few 02/18/19 07:55 Helmet Cells Not Reportable 02/18/19 07:55 [place] Bodies Not Reportable 02/18/19 07:55 [place] Rings Not Reportable 02/18/19 07:55 Otoniel Cells Not Reportable 02/18/19 07:55 Bite Cells Not Reportable 02/18/19 07:55 Crenated Cell Not Reportable 02/18/19 07:55 Elliptocytes Not Reportable 02/18/19 07:55 Acanthocytes (Spur) Not Reportable 02/18/19 07:55 Rouleaux Not Reportable 02/18/19 07:55 Hemoglobin C Crystals Not Reportable 02/18/19 07:55 Schistocytes Not Reportable 02/18/19 07:55 Malaria parasites Not Reportable 02/18/19 07:55 João Bodies Not Reportable 02/18/19 07:55 Hem Pathologist Commnt No 02/18/19 07:55 PT 15.3 Sec. (12.2-14.9) H 02/17/19 09:16 INR 1.22 (0.87-1.13) H 02/17/19 09:16 APTT 33.5 Sec. (24.2-36.6) 02/17/19 09:16 VBG pH 7.212 (7.320-7.420) L 02/17/19 11:46 Sodium 143 mmol/L (137-145) 02/18/19 05:01 Potassium 3.8 mmol/L (3.6-5.0) 02/18/19 05:01 Chloride 106.8 mmol/L (98-107) 02/18/19 05:01 Carbon Dioxide 16 mmol/L (22-30) L 02/18/19 05:01 Anion Gap 24 mmol/L 02/18/19 05:01 BUN 76 mg/dL (9-20) H 02/18/19 05:01 Creatinine 9.5 mg/dL (0.8-1.5) H 02/18/19 05:01 Estimated GFR 7 ml/min 02/18/19 05:01 BUN/Creatinine Ratio 8 % 02/18/19 05:01 Glucose 161 mg/dL (75-100) H 02/18/19 07:08 POC Glucose 190 (70-105) H 02/18/19 07:12 Lactic Acid 1.20 mmol/L (0.7-2.0) 02/17/19 11:46 Calcium 7.9 mg/dL (8.4-10.2) L 02/18/19 05:01 Hepatitis A IgM Ab Non-reactive (NonReactive) 02/17/19 20:43 Hep Bs Antigen Non-reactive (Negative) 02/17/19 20:43 Hep B Core IgM Ab Reactive (NonReactive) A 02/17/19 20:43 Hepatitis C Antibody Non-reactive (NonReactive) 02/17/19 20:43 Active Medications - Current Medications Current Medications: Generic Name Dose Route Start Last Admin Trade Name Freq PRN Reason Stop Dose Admin Acetaminophen 650 mg 02/17/19 16:16 02/17/19 20:03 Tylenol PO 650 mg Q4H PRN Administration Pain MILD(1-3)/Fever >100.5/WONG Albuterol 2.5 mg 02/17/19 16:16 Proventil IH Q4HRT PRN Shortness Of Breath Calcium Acetate 667 mg 02/18/19 12:00 02/19/19 17:10 Phoslo PO 667 mg TIDWM MAGDALENE Administration Cholestyramine Resin 4 gm 02/18/19 10:00 02/19/19 11:45 Questran PO 4 gm DAILY MAGDALENE Administration Diphenhydramine HCl 25 mg 02/17/19 16:33 02/17/19 20:03 Benadryl PO 25 mg Q12H PRN Administration Itching Diphenoxylate HCl/Atropine 1 tab 02/17/19 16:34 Lomotil PO Q6H PRN Diarrhea Folic Acid 1 mg 02/18/19 10:00 02/19/19 11:49 Folvite PO 1 mg DAILY MAGDALENE Administration Sodium Chloride 100 mls @ 999 mls/hr 02/17/19 17:33 Nacl 0.9% IV RAJEEV PRN Hypotension Sodium Chloride 500 mls @ 50 mls/hr 02/18/19 14:00 Nacl 0.9% 500 Ml IV DIRECT MAGDALENE Lactobacillus Rhamnosus 1 each 02/17/19 22:00 02/19/19 11:49 Culturelle PO 1 each BID MAGDALENE Administration Levothyroxine Sodium 25 mcg 02/18/19 06:00 02/19/19 06:10 Synthroid PO 25 mcg DAILY@0600 MAGDALENE Administration Loperamide HCl 2 mg 02/17/19 16:17 Imodium PO QDAY PRN Diarrhea Losartan Potassium 50 mg 02/18/19 10:00 02/19/19 11:48 Cozaar PO 50 mg QDAY MAGDALENE Administration Metoprolol Tartrate 25 mg 02/17/19 17:00 02/19/19 11:47 Metoprolol PO 25 mg Q12HR MAGDALENE Administration Mirtazapine 15 mg 02/17/19 22:00 02/18/19 22:29 Remeron PO 15 mg QHS MAGDALENE Administration Ondansetron HCl 4 mg 02/17/19 16:16 Zofran IV Q8H PRN Nausea And Vomiting Sodium Chloride 10 ml 02/17/19 22:00 02/19/19 11:53 Sodium Chloride Flush Syringe 10 Ml IV 10 ml BID MAGDALENE Administration Sodium Chloride 10 ml 02/17/19 16:16 Sodium Chloride Flush Syringe 10 Ml IV PRN PRN LINE FLUSH Spironolactone 50 mg 02/18/19 10:00 02/19/19 11:46 Aldactone PO 50 mg QDAY MAGDALENE Administration Thiamine HCl 100 mg 02/18/19 10:00 02/19/19 11:46 Vitamin B-1 PO 100 mg QDAY MAGDALENE Administration Nutrition/Malnutrition Assess - Dietary Evaluation Nutrition/Malnutrition Findings: Nutrition Notes Start: 02/18/19 12:12 Freq: Status: Active Protocol: Document 02/18/19 12:12 CT (Rec: 02/18/19 12:18 CT [id number]) Co-Sign 02/18/19 12:12 LP Nutrition Notes Need for Assessment generated from: Low BMI Initial or Follow up Assessment Current Diagnosis Diabetes,Hypertension Other Pertinent Diagnosis ESRD on HD, dementia, thrombocytopenia, Nicotine dependence, debility Current Diet NPO Labs/Tests POC Glu 190 BUN 76 Cr 9.5 Pertinent Medications Remeron Phoslo Height 5 ft 9 in Weight 56.9 kg [place] Body Weight (kg) 72.72 BMI 18.5 Intake Prior to Admission Poor Weight Status Underweight Subjective/Other Information Low BMI screen. Pt was confused at time of visit. Pt was unsure of UBW and any wt loss. Pt is NPO for cath procedure after ripping out his HD cath placement. Pt weight at time of visit was 56 .9 kg. Noted temporal and orbital wasting. Per physical assessment pt has bilat reduced processor grain strength and skin risk of 13. Burn Absent Trauma Absent GI Symptoms Diarrhea Current % PO Negligible Minimum of two criteria Yes Energy Intake (non-severe) <75% Estimated Energy Requirement >7 days Body Fat Depletion Moderate depletion (severe) Muscle Mass Moderate Depletion (severe) Reduced Hand Washer Strength Measurably Reduced (severe) #1 Nutrition Diagnosis Malnutrition Etiology ESRD As Evidenced by Signs and Symptoms <75% EER >7 days, fat and muscle depletion, bilat reduced processor grain strength Is patient on ventilator? No Is Patient Ambulatory and/or Out of Bed No REE-([facility]-confined to bed) 1701.468 Kcal/Kg value to use for calculation 36 Approximate Energy Requirements Using 2048 kcal/Kg Calculation Used for Recommendations Kcal/kg Additional Notes Protein needs: 63-78 g/kg/day (1.2-1.5 g/kg/day) Fluid needs: 0058-2380 ml/day Nutrition Intervention Change Diet Order: diet advancement to renal diet once medically feasible Add Supplement/Snack (indicate name/kcal add Nepro daily once medically /protein ) feasible Provides kCal: 425 Provides Protein (gm) 20 Goal #1 Meet >75% of energy and protein needs Goal #2 wt gain/maintenance Goal #3 diet advancement Anticipated Discharge Needs: Renal diet Follow-Up By: 02/20/19 Additional Comments Follow up for diet advancement and PO intake/ONS tolerance
[2019-02-19] MEDS: MIRTAZAPINE 15 MG TAB PO SCH (21:56)
[2019-02-20] MEDS: LEVOTHYROXINE 25 MCG TAB PO SCH (06:32)
[2019-02-20] MEDS: CALCIUM ACETATE 667 MG CAP PO SCH ×3 (08:34→19:39)
[2019-02-20] MEDS: SPIRONOLACTONE 25 MG TAB PO SCH (10:17)
[2019-02-20] MEDS: METOPROLOL TARTRATE 25 MG TAB PO SCH ×2 (10:17→23:42)
[2019-02-20] MEDS: LOSARTAN 50 MG TAB PO SCH (10:17)
[2019-02-20] MEDS: FOLIC ACID 1 MG TAB PO SCH (10:17)
[2019-02-20] MEDS: CHOLESTYRAMINE (WITH SUGAR) 4 GM PACKET PO SCH (10:17)
[2019-02-20] MEDS: THIAMINE 100 MG TAB PO SCH (10:17)
--- NOTE | 2019-02-20 11:38 | Discharge Summary ---
Providers - Providers Date of Admission: 02/19/19 11:17 Date of discharge: 02/20/19 Attending physician: WOLF CHAPMAN 02/17/19 11:23 Consult to Physician [CONS] Urgent Comment: Dr. Rudolph spoke with Dr. Vasquez @ 112 Consulting Provider: BASSEM VASQUEZ Physician Instructions: Reason For Exam: need dialysis access 02/17/19 11:31 Consult to Physician [CONS] Urgent Comment: Dr. Rudolph spoke with Carolyn @ 1037 Consulting Provider: RAMIRO MENCHACA Physician Instructions: Reason For Exam: esrd Primary care physician: STEAM TUNNEL FEEDER Hospitalization Condition: Stable Hospital course: Displacement of vascular dialysis catheter Current Visit: Yes Status: Acute Vascular evaluated, left IJ permacath insertion ESRD (end stage renal disease) Current Visit: Yes Status: Acute S/P dialysis catheter replacement, HD per schedule, nephrology following Chronic thrombocytopenia Current Visit: Yes Status: Acute patient was evaluated by hematology oncology during past admission Closely monitor, platelet transfusion if needed Metabolic acidosis Current Visit: Yes Status: Acute IVF resuscitation therapy as tolerated, supportive care, repeat bmp, DVT prophylaxis Current Visit: Yes Status: Acute SCD to BLE while in bed, hold anticoagulation due to thrombocytopenia Monitor closely and adjust management as needed Discussed with nephrology, okay to discharge after dialysis today Patient is [place] planning per case management Plan of care reviewed with the patient and his nurse Disposition: DC-30 STILL A PATIENT Time spent for discharge: 32 min Core Measure Documentation - Palliative Care Palliative Care/ Comfort Measures: Not Applicable - Core Measures Any of the following diagnoses?: none Exam - Constitutional Vitals: Temp Pulse Resp BP Pulse Ox 98.6 F 80 18 113/70 99 02/20/19 05:12 02/20/19 10:17 02/20/19 05:12 02/20/19 05:12 02/20/19 05:12 General appearance: Present: no acute distress, well-nourished - EENT Eyes: Present: PERRL, EOM intact - Neck Neck: Present: supple, normal ROM Plan Activity: advance as tolerated, fall precautions Diet: renal Additional Instructions: f/u renal and HD per schedule. Fall precautions Follow up with: PRIMARY MD MARNI [Primary Care Provider] - 7 Days RAMIRO MENCHACA MD [Staff Physician] - 7 Days
[2019-02-20] MEDS: LACTOBACILLUS RHAMNOSUS GG 1 EACH CAP PO SCH ×2 (13:12→23:43)
--- NOTE | 2019-02-20 13:14 | Progress Note ---
Subjective Interval history: Patient was seen today for follow-up on multiple renal related issues Events of this hospitalization were noted Interdisciplinary notes were also reviewed Vitals intake output medications were reviewed Past medical history: Reviewed Family, social history: Reviewed Allergies: Reviewed Physical examination General: No acute distress Vitals: Reviewed HEENT: Oral mucosa moist no icterus Neck: Supple no thyromegaly nodular mass or JVD Chest: Clear to auscultation anteriorly Heart: Regular rate and rhythm S1-S2 heard no S3-S4 Abdomen: Soft nontender no suprapubic masses no organomegaly Extremity: Dry skin less than 1+ edema Psych: No evidence of any agitation and aggression noted Derm: No petechial rash Assessment and plan: End-stage renal disease currently on maintenance dialysis patient will need to continue his hemodialysis treatment 3 times per week Status post access placement. I have reviewed his dialysis record his hepatitis B surface antibody is 243 his hepatitis C surface antigen has been negative, Current dialysis days are Saturday and Saturday Continue with hemodialysis, monitor dialysis related labs Blood pressure is currently well-controlled volume status appears to be stable He has chronic pancytopenia current hemoglobin 9.6 From dialysis standpoint his last labs from February 18 shows a potassium 3.8 calcium is 7.9 Positive hepatitis B core antibody IgM: Would like to obtain GI consultation, prior to discharge All renal related issues were discussed with the patient, patient does exhibit good understanding, lab results were also discussed with patient in simple [place] Prognosis: Guarded We'll continue to follow and make recommendation from renal standpoint Objective - Vital Signs Vital signs: Vital Signs - 12hr 02/20/19 02/20/19 05:12 10:17 Temperature 98.6 F Pulse Rate 80 80 Respiratory 18 Rate Blood Pressure 113/70 O2 Sat by Pulse 99 Oximetry - Lab 02/18/19 07:55 02/18/19 07:08 Most recent lab results Calcium 7.9 mg/dL (8.4-10.2) L 02/18/19 05:01 Medications & Allergies - Medications Allergies/Adverse Reactions: Allergies morphine Allergy (Verified 02/17/19 08:48) Unknown Home Medications: Home Medications Medication Instructions Recorded Confirmed Last Taken Type Acidophilus 175 mg Capsule 100 mg PO BID 07/08/17 02/17/19 06/26/18 06:00 History 100 mg Benadryl CAP 25 mg PO Q12H PRN 07/08/17 02/17/19 03/16/18 History Folic Acid 1 mg PO DAILY 07/08/17 02/17/19 06/26/18 06:00 History Lantus VIAL 20 units SQ QHS 07/08/17 02/17/19 06/25/18 21:00 History Lomotil 2.5-0.025 mg Tablet 2.5 mg PO Q6H PRN 07/08/17 02/17/19 03/16/18 History Metoprolol Tartrate 25 mg PO Q12H 07/08/17 02/17/19 06/26/18 06:00 History 25 mg NovoLOG Flexpen 3 units SQ AC 07/08/17 02/17/19 06/25/18 21:00 History Phoslo 667 mg PO TID 07/08/17 02/17/19 06/25/18 21:00 History 667 mg Remeron 15 mg PO QHS 07/08/17 02/17/19 06/25/18 21:00 History 15 mg Synthroid 25 mcg PO QAM 07/08/17 02/17/19 06/26/18 06:00 History 25 mcg Thiamine HCl 100 mg PO DAILY 07/08/17 02/17/19 06/26/18 06:00 History 100 mg Losartan [Cozaar] 50 mg PO QDAY 03/17/18 02/17/19 05/06/18 History 50 mg Spironolactone [Aldactone] 50 mg PO QDAY 03/17/18 02/17/19 06/26/18 06:00 History 25 mg Cholestyramine/Aspartame 210 gm PO QDAY 02/17/19 02/17/19 Unknown History [Cholestyramine Light Powder] Insulin Aspart (Nf) [Novolog] 0 unit SQ AC 02/17/19 02/17/19 Unknown History Loperamide HCl [Imodium A-D] 2 mg PO QDAY PRN 02/17/19 02/17/19 Unknown History Active Medications: Generic Name Dose Route Start Last Admin Trade Name Freq PRN Reason Stop Dose Admin Acetaminophen 650 mg 02/17/19 16:16 02/17/19 20:03 Tylenol PO 650 mg Q4H PRN Administration Pain MILD(1-3)/Fever >100.5/WONG Albuterol 2.5 mg 02/17/19 16:16 Proventil IH Q4HRT PRN Shortness Of Breath Calcium Acetate 667 mg 02/18/19 12:00 02/20/19 08:34 Phoslo PO 667 mg TIDWM MAGDALENE Administration Cholestyramine Resin 4 gm 02/18/19 10:00 02/20/19 10:17 Questran PO 4 gm DAILY MAGDALENE Administration Diphenhydramine HCl 25 mg 02/17/19 16:33 02/17/19 20:03 Benadryl PO 25 mg Q12H PRN Administration Itching Diphenoxylate HCl/Atropine 1 tab 02/17/19 16:34 Lomotil PO Q6H PRN Diarrhea Folic Acid 1 mg 02/18/19 10:00 02/20/19 10:17 Folvite PO 1 mg DAILY MAGDALENE Administration Sodium Chloride 100 mls @ 999 mls/hr 02/17/19 17:33 Nacl 0.9% IV RAJEEV PRN Hypotension Sodium Chloride 500 mls @ 50 mls/hr 02/18/19 14:00 Nacl 0.9% 500 Ml IV DIRECT MAGDALENE Lactobacillus Rhamnosus 1 each 02/17/19 22:00 02/20/19 13:12 Culturelle PO 1 each BID MAGDALENE Administration Levothyroxine Sodium 25 mcg 02/18/19 06:00 02/20/19 06:32 Synthroid PO 25 mcg DAILY@0600 MAGDALENE Administration Loperamide HCl 2 mg 02/17/19 16:17 Imodium PO QDAY PRN Diarrhea Losartan Potassium 50 mg 02/18/19 10:00 02/20/19 10:17 Cozaar PO 50 mg QDAY MAGDALENE Administration Metoprolol Tartrate 25 mg 02/17/19 17:00 02/20/19 10:17 Metoprolol PO 25 mg Q12HR MAGDALENE Administration Mirtazapine 15 mg 02/17/19 22:00 02/19/19 21:56 Remeron PO 15 mg QHS MAGDALENE Administration Ondansetron HCl 4 mg 02/17/19 16:16 Zofran IV Q8H PRN Nausea And Vomiting Sodium Chloride 10 ml 02/17/19 22:00 02/20/19 10:18 Sodium Chloride Flush Syringe 10 Ml IV 10 ml BID MAGDALENE Administration Sodium Chloride 10 ml 02/17/19 16:16 Sodium Chloride Flush Syringe 10 Ml IV PRN PRN LINE FLUSH Spironolactone 50 mg 02/18/19 10:00 02/20/19 10:17 Aldactone PO 50 mg QDAY MAGDALENE Administration Thiamine HCl 100 mg 02/18/19 10:00 02/20/19 10:17 Vitamin B-1 PO 100 mg QDAY MAGDALENE Administration
--- NOTE | 2019-02-20 18:51 | Progress Note ---
Assessment and Plan Assessment and plan: Abnormal hepatitis panel ; consult GI for further evaluation and management displacement of vascular dialysis catheter Current Visit: Yes Status: Acute Vascular evaluated, left IJ permacath insertion ESRD (end stage renal disease) Current Visit: Yes Status: Acute S/P dialysis catheter replacement, HD per schedule, nephrology following Chronic thrombocytopenia Current Visit: Yes Status: Acute patient was evaluated by hematology oncology during past admission Closely monitor, platelet transfusion if needed Metabolic acidosis Current Visit: Yes Status: Acute IVF resuscitation therapy as tolerated, supportive care, repeat bmp, DVT prophylaxis Current Visit: Yes Status: Acute SCD to BLE while in bed, hold anticoagulation due to thrombocytopenia Monitor closely and adjust management as needed Hold the discharge, follow GI evaluation and recommendations Plan of care reviewed with the patient and his nurse History Interval history: Patient seen and examined medical records reviewed Admitted with displaced dialysis catheter Tube was replaced patient received hemodialysis Patient was stable for discharge However on review of work-up Patient has abnormal hepatitis panel Discussed with nephrology will consult GI Hospitalist Physical - Constitutional Vitals: Temp Pulse Resp BP Pulse Ox 97.7 F 80 18 181/97 100 02/20/19 16:50 02/20/19 16:50 02/20/19 16:50 02/20/19 16:50 02/20/19 16:50 General appearance: Present: no acute distress, well-nourished - EENT Eyes: Present: PERRL, EOM intact - Neck Neck: Present: supple, normal ROM - Respiratory Respiratory effort: normal Respiratory: bilateral: diminished, rales, negative: rhonchi, wheezing - Cardiovascular Rhythm: regular Heart Sounds: Present: S1 & S2 - Extremities Extremities: no ischemia, No edema - Abdominal General gastrointestinal: soft, non-tender, non-distended, normal bowel sounds - Integumentary Integumentary: Present: clear, warm - Psychiatric Psychiatric: appropriate mood/affect, cooperative - Neurologic Neurologic: CNII-XII intact, moves all extremities Results - Labs CBC & Chem 7: 02/18/19 07:55 02/18/19 07:08 Labs: Laboratory Last Values WBC 2.9 K/mm3 (4.5-11.0) L 02/18/19 07:55 RBC 3.08 M/mm3 (3.65-5.03) L 02/18/19 07:55 Hgb 9.6 gm/dl (11.8-15.2) L 02/18/19 07:55 Hct 28.5 % (35.5-45.6) L D 02/18/19 07:55 MCV 92 fl (84-94) 02/18/19 07:55 MCH 31 pg (28-32) 02/18/19 07:55 MCHC 34 % (32-34) 02/18/19 07:55 RDW 14.7 % (13.2-15.2) 02/18/19 07:55 Plt Count 25 K/mm3 (140-440) L 02/18/19 07:55 Lymph % (Auto) 14.6 % (13.4-35.0) 02/17/19 09:16 [place] % (Auto) 5.7 % (0.0-7.3) 02/17/19 09:16 Eos % (Auto) 2.5 % (0.0-4.3) 02/17/19 09:16 Baso % (Auto) 0.8 % (0.0-1.8) 02/17/19 09:16 Lymph # 0.6 K/mm3 (1.2-5.4) L 02/17/19 09:16 [place] # 0.2 K/mm3 (0.0-0.8) 02/17/19 09:16 Eos # 0.1 K/mm3 (0.0-0.4) 02/17/19 09:16 Baso # 0.0 K/mm3 (0.0-0.1) 02/17/19 09:16 Add Manual Diff Complete 02/18/19 07:55 Total Counted 100 02/18/19 07:55 Seg Neutrophils % 76.4 % (40.0-70.0) H 02/17/19 09:16 Seg Neuts % (Manual) 84.0 % (40.0-70.0) H 02/18/19 07:55 Band Neutrophils % 0 % 02/18/19 07:55 Lymphocytes % (Manual) 10.0 % (13.4-35.0) L 02/18/19 07:55 Reactive Lymphs % (Man) 0 % 02/18/19 07:55 Monocytes % (Manual) 3.0 % (0.0-7.3) 02/18/19 07:55 Eosinophils % (Manual) 3.0 % (0.0-4.3) 02/18/19 07:55 Basophils % (Manual) 0 % (0.0-1.8) 02/18/19 07:55 Metamyelocytes % 0 % 02/18/19 07:55 Myelocytes % 0 % 02/18/19 07:55 Promyelocytes % 0 % 02/18/19 07:55 Blast Cells % 0 % 02/18/19 07:55 Nucleated RBC % Not Reportable 02/18/19 07:55 Seg Neutrophils # 3.1 K/mm3 (1.8-7.7) 02/17/19 09:16 Seg Neutrophils # Man 2.4 K/mm3 (1.8-7.7) 02/18/19 07:55 Band Neutrophils # 0.0 K/mm3 02/18/19 07:55 Lymphocytes # (Manual) 0.3 K/mm3 (1.2-5.4) L 02/18/19 07:55 Abs React Lymphs (Man) 0.0 K/mm3 02/18/19 07:55 Monocytes # (Manual) 0.1 K/mm3 (0.0-0.8) 02/18/19 07:55 Eosinophils # (Manual) 0.1 K/mm3 (0.0-0.4) 02/18/19 07:55 Basophils # (Manual) 0.0 K/mm3 (0.0-0.1) 02/18/19 07:55 Metamyelocytes # 0.0 K/mm3 02/18/19 07:55 Myelocytes # 0.0 K/mm3 02/18/19 07:55 Promyelocytes # 0.0 K/mm3 02/18/19 07:55 Blast Cells # 0.0 K/mm3 02/18/19 07:55 WBC Morphology Not Reportable 02/18/19 07:55 Hypersegmented Neuts Not Reportable 02/18/19 07:55 Hyposegmented Neuts Not Reportable 02/18/19 07:55 Hypogranular Neuts Not Reportable 02/18/19 07:55 Smudge Cells Not Reportable 02/18/19 07:55 Toxic Granulation Not Reportable 02/18/19 07:55 Toxic Vacuolation Not Reportable 02/18/19 07:55 Dohle Bodies Not Reportable 02/18/19 07:55 Pelger-Huet Anomaly Not Reportable 02/18/19 07:55 Reyes Rods Not Reportable 02/18/19 07:55 Platelet Estimate Consistent w auto 02/18/19 07:55 Clumped Platelets Not Reportable 02/18/19 07:55 Plt Clumps, EDTA Not Reportable 02/18/19 07:55 Large Platelets Not Reportable 02/18/19 07:55 Giant Platelets Not Reportable 02/18/19 07:55 Platelet Satelliting Not Reportable 02/18/19 07:55 Plt Morphology Comment Not Reportable 02/18/19 07:55 RBC Morphology Not Reportable 02/18/19 07:55 Dimorphic RBCs Not Reportable 02/18/19 07:55 Polychromasia Not Reportable 02/18/19 07:55 Hypochromasia Not Reportable 02/18/19 07:55 Poikilocytosis Not Reportable 02/18/19 07:55 Anisocytosis Not Reportable 02/18/19 07:55 Microcytosis Not Reportable 02/18/19 07:55 Macrocytosis Few 02/18/19 07:55 Spherocytes Not Reportable 02/18/19 07:55 Pappenheimer Bodies Not Reportable 02/18/19 07:55 Sickle Cells Not Reportable 02/18/19 07:55 Target Cells Not Reportable 02/18/19 07:55 Tear Drop Cells Not Reportable 02/18/19 07:55 Ovalocytes Few 02/18/19 07:55 Helmet Cells Not Reportable 02/18/19 07:55 [place] Bodies Not Reportable 02/18/19 07:55 [place] Rings Not Reportable 02/18/19 07:55 O[place]iel Cells Not Reportable 02/18/19 07:55 Bite Cells Not Reportable 02/18/19 07:55 Crenated Cell Not Reportable 02/18/19 07:55 Elliptocytes Not Reportable 02/18/19 07:55 Acanthocytes (Spur) Not Reportable 02/18/19 07:55 Rouleaux Not Reportable 02/18/19 07:55 Hemoglobin C Crystals Not Reportable 02/18/19 07:55 Schistocytes Not Reportable 02/18/19 07:55 Malaria parasites Not Reportable 02/18/19 07:55 João Bodies Not Reportable 02/18/19 07:55 Hem Pathologist Commnt No 02/18/19 07:55 PT 15.3 Sec. (12.2-14.9) H 02/17/19 09:16 INR 1.22 (0.87-1.13) H 02/17/19 09:16 APTT 33.5 Sec. (24.2-36.6) 02/17/19 09:16 VBG pH 7.212 (7.320-7.420) L 02/17/19 11:46 Sodium 143 mmol/L (137-145) 02/18/19 05:01 Potassium 3.8 mmol/L (3.6-5.0) 02/18/19 05:01 Chloride 106.8 mmol/L (98-107) 02/18/19 05:01 Carbon Dioxide 16 mmol/L (22-30) L 02/18/19 05:01 Anion Gap 24 mmol/L 02/18/19 05:01 BUN 76 mg/dL (9-20) H 02/18/19 05:01 Creatinine 9.5 mg/dL (0.8-1.5) H 02/18/19 05:01 Estimated GFR 7 ml/min 02/18/19 05:01 BUN/Creatinine Ratio 8 % 02/18/19 05:01 Glucose 161 mg/dL (75-100) H 02/18/19 07:08 POC Glucose 190 (70-105) H 02/18/19 07:12 Lactic Acid 1.20 mmol/L (0.7-2.0) 02/17/19 11:46 Calcium 7.9 mg/dL (8.4-10.2) L 02/18/19 05:01 Hepatitis A IgM Ab Non-reactive (NonReactive) 02/17/19 20:43 Hep Bs Antigen Non-reactive (Negative) 02/17/19 20:43 Hep B Core IgM Ab Reactive (NonReactive) A 02/17/19 20:43 Hepatitis C Antibody Non-reactive (NonReactive) 02/17/19 20:43 Active Medications - Current Medications Current Medications: Generic Name Dose Route Start Last Admin Trade Name Freq PRN Reason Stop Dose Admin Acetaminophen 650 mg 02/17/19 16:16 02/17/19 20:03 Tylenol PO 650 mg Q4H PRN Administration Pain MILD(1-3)/Fever >100.5/WONG Albuterol 2.5 mg 02/17/19 16:16 Proventil IH Q4HRT PRN Shortness Of Breath Calcium Acetate 667 mg 02/18/19 12:00 02/20/19 13:17 Phoslo PO 667 mg TIDWM MAGDALENE Administration Cholestyramine Resin 4 gm 02/18/19 10:00 02/20/19 10:17 Questran PO 4 gm DAILY MAGDALENE Administration Diphenhydramine HCl 25 mg 02/17/19 16:33 02/17/19 20:03 Benadryl PO 25 mg Q12H PRN Administration Itching Diphenoxylate HCl/Atropine 1 tab 02/17/19 16:34 Lomotil PO Q6H PRN Diarrhea Folic Acid 1 mg 02/18/19 10:00 02/20/19 10:17 Folvite PO 1 mg DAILY MAGDALENE Administration Sodium Chloride 100 mls @ 999 mls/hr 02/17/19 17:33 Nacl 0.9% IV RAJEEV PRN Hypotension Sodium Chloride 500 mls @ 50 mls/hr 02/18/19 14:00 Nacl 0.9% 500 Ml IV DIRECT MAGDALENE Lactobacillus Rhamnosus 1 each 02/17/19 22:00 02/20/19 13:12 Culturelle PO 1 each BID MAGDALENE Administration Levothyroxine Sodium 25 mcg 02/18/19 06:00 02/20/19 06:32 Synthroid PO 25 mcg DAILY@0600 MAGDALENE Administration Loperamide HCl 2 mg 02/17/19 16:17 Imodium PO QDAY PRN Diarrhea Losartan Potassium 50 mg 02/18/19 10:00 02/20/19 10:17 Cozaar PO 50 mg QDAY MAGDALENE Administration Metoprolol Tartrate 25 mg 02/17/19 17:00 02/20/19 10:17 Metoprolol PO 25 mg Q12HR MAGDALENE Administration Mirtazapine 15 mg 02/17/19 22:00 02/19/19 21:56 Remeron PO 15 mg QHS MAGDALENE Administration Ondansetron HCl 4 mg 02/17/19 16:16 Zofran IV Q8H PRN Nausea And Vomiting Sodium Chloride 10 ml 02/17/19 22:00 02/20/19 10:18 Sodium Chloride Flush Syringe 10 Ml IV 10 ml BID MAGDALENE Administration Sodium Chloride 10 ml 02/17/19 16:16 Sodium Chloride Flush Syringe 10 Ml IV PRN PRN LINE FLUSH Spironolactone 50 mg 02/18/19 10:00 02/20/19 10:17 Aldactone PO 50 mg QDAY MAGDALENE Administration Thiamine HCl 100 mg 02/18/19 10:00 02/20/19 10:17 Vitamin B-1 PO 100 mg QDAY MAGDALENE Administration Nutrition/Malnutrition Assess - Dietary Evaluation Nutrition/Malnutrition Findings: Nutrition Notes Start: 02/18/19 12:12 Freq: Status: Active Protocol: Document 02/20/19 11:18 CT (Rec: 02/20/19 11:21 CT [id number]) Co-Sign 02/20/19 11:18 LP Nutrition Notes Initial or Follow up Reassessment Current Diagnosis Diabetes,Hypertension Other Pertinent Diagnosis ESRD on HD, dementia, thrombocytopenia, Nicotine dependence, debility Current Diet Renal Labs/Tests POC Glu 190 Pertinent Medications Phoslo Remeron NS 50 ml/hr Height 5 ft 9 in Weight 56.2 kg [place] Body Weight (kg) 72.72 BMI 18.3 Weight Status Underweight Subjective/Other Information Follow up for diet advancement , PO/ONS intakes. Pt was eating breakfast at time of visit. Pt had eaten 75% of breakfast this am. Pt stated that he ate well yesterday. Per ADLs pt ate 75% of all meals the previous day. Pt stated that he has a good appetite. Pt has not received Nepro yet, made sure it was in the diet order. Percent of energy/protein needs met: 79% energy / 90% protein Burn Absent Trauma Absent Current % PO Good (75-100%) Minimum of two criteria Yes Energy Intake (non-severe) <75% Estimated Energy Requirement >7 days Body Fat Depletion Moderate depletion (severe) Muscle Mass Moderate Depletion (severe) Reduced Gut Dropper Strength Measurably Reduced (severe) #1 Nutrition Diagnosis Malnutrition Diagnosis Progress(for reassessment Continues documentation) Is patient on ventilator? No Is Patient Ambulatory and/or Out of Bed No REE-([facility]-confined to bed) 1693.068 Kcal/Kg value to use for calculation 36 Approximate Energy Requirements Using 3 kcal/Kg Calculation Used for Recommendations Kcal/kg Additional Notes Protein needs: 63-78 g/kg/day (1.2-1.5 g/kg/day) Fluid needs: 0688-0763 ml/day Nutrition Intervention Change Diet Order: Renal Diet Add Supplement/Snack (indicate name/kcal Add Nepro BID butterpecan and /protein ) vanilla Provides kCal: 850 Provides Protein (gm) 40 Goal #1 Meet >75% of energy and protein needs Goal #2 wt gain/maintenance Anticipated Discharge Needs: Renal diet Follow-Up By: 02/25/19 Additional Comments Follow for stable intakes
[2019-02-20] MEDS ORDERED: ALPRAZolam 0.25 MG TAB PO ONE (23:00)
[2019-02-20] MEDS: diphenhydrAMINE 25 MG CAP PO PRN (23:42)
[2019-02-20] MEDS: MIRTAZAPINE 15 MG TAB PO SCH (23:42)
[2019-02-21] MEDS: MIRTAZAPINE 15 MG TAB PO SCH (01:20)
[2019-02-21] MEDS: LEVOTHYROXINE 25 MCG TAB PO SCH (05:52)
[2019-02-21] MEDS: CALCIUM ACETATE 667 MG CAP PO SCH ×3 (09:13→16:59)
[2019-02-21] MEDS: FOLIC ACID 1 MG TAB PO SCH (09:13)
[2019-02-21] MEDS: CHOLESTYRAMINE (WITH SUGAR) 4 GM PACKET PO SCH (09:14)
[2019-02-21] MEDS: LACTOBACILLUS RHAMNOSUS GG 1 EACH CAP PO SCH ×2 (09:14→21:33)
[2019-02-21 10:09] LABS: Albumin 4.2 g/dL (3.9-5); Calcium 8.7 mg/dL (8.4-10.2)
[2019-02-21] MEDS ORDERED: ALTEPLASE 2 MG INJ IV STA (10:52)
[2019-02-21] MEDS ORDERED: WATER FOR INJ Sterile (PF) 10 ML ONE (11:06)
[2019-02-21] MEDS ORDERED: SODIUM CHLORIDE*PRIMING MACHINE ONLY FOR DIALYSIS MC ONE (11:07)
--- NOTE | 2019-02-21 12:27 | Progress Note ---
Subjective Interval history: Patient was seen today for follow-up on multiple renal related issues Events of this hospitalization were noted has had problems with his catheter Interdisciplinary notes were also reviewed Vitals intake output medications were reviewed Past medical history: Reviewed Family, social history: Reviewed Allergies: Reviewed Physical examination General: No acute distress Vitals: Reviewed HEENT: Oral mucosa moist no icterus Neck: Supple no thyromegaly nodular mass or JVD Chest: Clear to auscultation anteriorly Heart: Regular rate and rhythm S1-S2 heard no S3-S4 Abdomen: Soft nontender no suprapubic masses no organomegaly Extremity: Dry skin less than 1+ edema Psych: No evidence of any agitation and aggression noted Derm: No petechial rash Assessment and plan: End-stage renal disease currently on maintenance dialysis patient will need to continue his hemodialysis treatment 3 times per week Status post access placement. We are still continue to have issues with his catheter,and patient had to get TPA In the outpatient setting his hepatitis B surface antigen is negative, hepatitis B surface antibody is positive ? 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 in past Current dialysis days are Saturday and Saturday Continue with hemodialysis, monitor dialysis related labs Blood pressure is currently well-controlled volume status appears to be stable He has chronic pancytopenia current hemoglobin 9.6 Positive hepatitis B core antibody IgM: Would like to obtain GI consultation, prior to discharge, discussed with hospital medicine service yesterday All renal related issues were discussed with the patient, patient does exhibit good understanding, lab results were also discussed with patient in simple [place] Prognosis: Guarded We'll continue to follow and make recommendation from renal standpoint Objective - Vital Signs Vital signs: Vital Signs - 12hr 02/21/19 02/21/19 02/21/19 06:33 10:00 12:00 Temperature 97.8 F 97.6 F Pulse Rate 79 80 80 Respiratory 20 20 Rate Blood Pressure 168/92 148/89 149/83 O2 Sat by Pulse 99 Oximetry 02/21/19 12:16 Temperature Pulse Rate 80 Respiratory Rate Blood Pressure 145/87 O2 Sat by Pulse Oximetry - Lab 02/18/19 07:55 02/21/19 09:11 Most recent lab results Calcium 8.7 mg/dL (8.4-10.2) 02/21/19 09:11 Medications & Allergies - Medications Allergies/Adverse Reactions: Allergies morphine Allergy (Verified 02/17/19 08:48) Unknown Home Medications: Home Medications Medication Instructions Recorded Confirmed Last Taken Type Acidophilus 175 mg Capsule 100 mg PO BID 07/08/17 02/17/19 06/26/18 06:00 History 100 mg Benadryl CAP 25 mg PO Q12H PRN 07/08/17 02/17/19 03/16/18 History Folic Acid 1 mg PO DAILY 07/08/17 02/17/19 06/26/18 06:00 History Lantus VIAL 20 units SQ QHS 07/08/17 02/17/19 06/25/18 21:00 History Lomotil 2.5-0.025 mg Tablet 2.5 mg PO Q6H PRN 07/08/17 02/17/19 03/16/18 History Metoprolol Tartrate 25 mg PO Q12H 07/08/17 02/17/19 06/26/18 06:00 History 25 mg NovoLOG Flexpen 3 units SQ AC 07/08/17 02/17/19 06/25/18 21:00 History Phoslo 667 mg PO TID 07/08/17 02/17/19 06/25/18 21:00 History 667 mg Remeron 15 mg PO QHS 07/08/17 02/17/19 06/25/18 21:00 History 15 mg Synthroid 25 mcg PO QAM 07/08/17 02/17/19 06/26/18 06:00 History 25 mcg Thiamine HCl 100 mg PO DAILY 07/08/17 02/17/19 06/26/18 06:00 History 100 mg Losartan [Cozaar] 50 mg PO QDAY 03/17/18 02/17/19 05/06/18 History 50 mg Spironolactone [Aldactone] 50 mg PO QDAY 03/17/18 02/17/19 06/26/18 06:00 History 25 mg Cholestyramine/Aspartame 210 gm PO QDAY 02/17/19 02/17/19 Unknown History [Cholestyramine Light Powder] Insulin Aspart (Nf) [NovoLOG 100 0 unit SQ AC 02/17/19 02/17/19 Unknown History UNITS/ML VIAL] Loperamide HCl [Imodium A-D] 2 mg PO QDAY PRN 02/17/19 02/17/19 Unknown History Calcium Acetate [Phoslo] 667 mg PO TIDWM capsule 02/20/19 Unknown Rx Active Medications: Generic Name Dose Route Start Last Admin Trade Name Freq PRN Reason Stop Dose Admin Acetaminophen 650 mg 02/17/19 16:16 02/17/19 20:03 Tylenol PO 650 mg Q4H PRN Administration Pain MILD(1-3)/Fever >100.5/WONG Albuterol 2.5 mg 02/17/19 16:16 Proventil IH Q4HRT PRN Shortness Of Breath Calcium Acetate 667 mg 02/18/19 12:00 02/21/19 09:13 Phoslo PO 667 mg TIDWM MAGDALENE Administration Cholestyramine Resin 4 gm 02/18/19 10:00 02/21/19 09:14 Questran PO 4 gm DAILY MAGDALENE Administration Diphenhydramine HCl 25 mg 02/17/19 16:33 02/20/19 23:42 Benadryl PO 25 mg Q12H PRN Administration Itching Diphenoxylate HCl/Atropine 1 tab 02/17/19 16:34 Lomotil PO Q6H PRN Diarrhea Folic Acid 1 mg 02/18/19 10:00 02/21/19 09:13 Folvite PO 1 mg DAILY MAGDALENE Administration Sodium Chloride 100 mls @ 999 mls/hr 02/17/19 17:33 Nacl 0.9% IV RAJEEV PRN Hypotension Sodium Chloride 500 mls @ 50 mls/hr 02/18/19 14:00 Nacl 0.9% 500 Ml IV DIRECT MAGDALENE Lactobacillus Rhamnosus 1 each 02/17/19 22:00 02/21/19 09:14 Culturelle PO 1 each BID MAGDALENE Administration Levothyroxine Sodium 25 mcg 02/18/19 06:00 02/21/19 05:52 Synthroid PO 25 mcg DAILY@0600 MAGDALENE Administration Loperamide HCl 2 mg 02/17/19 16:17 Imodium PO QDAY PRN Diarrhea Losartan Potassium 50 mg 02/18/19 10:00 02/20/19 10:17 Cozaar PO 50 mg QDAY MAGDALENE Administration Metoprolol Tartrate 25 mg 02/17/19 17:00 02/20/19 23:42 Metoprolol PO 25 mg Q12HR MAGDALENE Administration Mirtazapine 15 mg 02/17/19 22:00 02/20/19 23:42 Remeron PO 15 mg QHS MAGDALENE Administration Ondansetron HCl 4 mg 02/17/19 16:16 Zofran IV Q8H PRN Nausea And Vomiting Sodium Chloride 10 ml 02/17/19 22:00 02/21/19 09:42 Sodium Chloride Flush Syringe 10 Ml IV 10 ml BID MAGDALENE Administration Sodium Chloride 10 ml 02/17/19 16:16 Sodium Chloride Flush Syringe 10 Ml IV PRN PRN LINE FLUSH Spironolactone 50 mg 02/18/19 10:00 02/20/19 10:17 Aldactone PO 50 mg QDAY MAGDALENE Administration Thiamine HCl 100 mg 02/18/19 10:00 02/20/19 10:17 Vitamin B-1 PO 100 mg QDAY MAGDALENE Administration
[2019-02-21] MEDS: METOPROLOL TARTRATE 25 MG TAB PO SCH ×2 (16:58→22:20)
[2019-02-21] MEDS: LOSARTAN 50 MG TAB PO SCH (16:58)
[2019-02-21] MEDS: SPIRONOLACTONE 25 MG TAB PO SCH (16:59)
--- NOTE | 2019-02-21 17:38 | Progress Note ---
Assessment and Plan Assessment and plan: ESRD (end stage renal disease) Current Visit: Yes Status: Acute S/P dialysis catheter replacement, HD per schedule, nephrology following Abnormal hepatitis panel ; Nephrology recommended GI consult for further evaluation and management displacement of vascular dialysis catheter Current Visit: Yes Status: Acute Vascular evaluated, left IJ permacath insertion Chronic thrombocytopenia Current Visit: Yes Status: Acute patient was evaluated by hematology oncology during past admission Closely monitor, platelet transfusion if needed Metabolic acidosis Current Visit: Yes Status: Acute IVF resuscitation therapy as tolerated, supportive care, repeat bmp, DVT prophylaxis Current Visit: Yes Status: Acute SCD to BLE while in bed, hold anticoagulation due to thrombocytopenia Monitor closely and adjust management as needed follow GI evaluation and recommendations Plan of care reviewed with the patient and his nurse History Interval history: Patient seen and examined medical records reviewed Patient feels slightly better Yesterday discharge was held because of abnormal hepatitis panel Nephrology requested to consult GI Scheduled for hemodialysis today Vital signs noted Hospitalist Physical - Constitutional Vitals: Temp Pulse Resp BP Pulse Ox 98.2 F 85 18 131/74 100 02/21/19 16:42 02/21/19 16:58 02/21/19 16:42 02/21/19 16:58 02/21/19 16:42 General appearance: Present: no acute distress, well-nourished - EENT Eyes: Present: PERRL, EOM intact - Neck Neck: Present: supple, normal ROM - Respiratory Respiratory effort: normal Respiratory: bilateral: diminished, negative: rales, rhonchi, wheezing - Cardiovascular Rhythm: regular Heart Sounds: Present: S1 & S2 - Extremities Extremities: no ischemia, No edema - Abdominal General gastrointestinal: soft, non-tender, non-distended, normal bowel sounds - Integumentary Integumentary: Present: clear, warm - Psychiatric Psychiatric: appropriate mood/affect, cooperative - Neurologic Neurologic: CNII-XII intact, moves all extremities Results - Labs CBC & Chem 7: 02/18/19 07:55 02/21/19 09:11 Labs: Laboratory Last Values WBC 2.9 K/mm3 (4.5-11.0) L 02/18/19 07:55 RBC 3.08 M/mm3 (3.65-5.03) L 02/18/19 07:55 Hgb 9.6 gm/dl (11.8-15.2) L 02/18/19 07:55 Hct 28.5 % (35.5-45.6) L D 02/18/19 07:55 MCV 92 fl (84-94) 02/18/19 07:55 MCH 31 pg (28-32) 02/18/19 07:55 MCHC 34 % (32-34) 02/18/19 07:55 RDW 14.7 % (13.2-15.2) 02/18/19 07:55 Plt Count 25 K/mm3 (140-440) L 02/18/19 07:55 Lymph % (Auto) 14.6 % (13.4-35.0) 02/17/19 09:16 [place] % (Auto) 5.7 % (0.0-7.3) 02/17/19 09:16 Eos % (Auto) 2.5 % (0.0-4.3) 02/17/19 09:16 Baso % (Auto) 0.8 % (0.0-1.8) 02/17/19 09:16 Lymph # 0.6 K/mm3 (1.2-5.4) L 02/17/19 09:16 [place] # 0.2 K/mm3 (0.0-0.8) 02/17/19 09:16 Eos # 0.1 K/mm3 (0.0-0.4) 02/17/19 09:16 Baso # 0.0 K/mm3 (0.0-0.1) 02/17/19 09:16 Add Manual Diff Complete 02/18/19 07:55 Total Counted 100 02/18/19 07:55 Seg Neutrophils % 76.4 % (40.0-70.0) H 02/17/19 09:16 Seg Neuts % (Manual) 84.0 % (40.0-70.0) H 02/18/19 07:55 Band Neutrophils % 0 % 02/18/19 07:55 Lymphocytes % (Manual) 10.0 % (13.4-35.0) L 02/18/19 07:55 Reactive Lymphs % (Man) 0 % 02/18/19 07:55 Monocytes % (Manual) 3.0 % (0.0-7.3) 02/18/19 07:55 Eosinophils % (Manual) 3.0 % (0.0-4.3) 02/18/19 07:55 Basophils % (Manual) 0 % (0.0-1.8) 02/18/19 07:55 Metamyelocytes % 0 % 02/18/19 07:55 Myelocytes % 0 % 02/18/19 07:55 Promyelocytes % 0 % 02/18/19 07:55 Blast Cells % 0 % 02/18/19 07:55 Nucleated RBC % Not Reportable 02/18/19 07:55 Seg Neutrophils # 3.1 K/mm3 (1.8-7.7) 02/17/19 09:16 Seg Neutrophils # Man 2.4 K/mm3 (1.8-7.7) 02/18/19 07:55 Band Neutrophils # 0.0 K/mm3 02/18/19 07:55 Lymphocytes # (Manual) 0.3 K/mm3 (1.2-5.4) L 02/18/19 07:55 Abs React Lymphs (Man) 0.0 K/mm3 02/18/19 07:55 Monocytes # (Manual) 0.1 K/mm3 (0.0-0.8) 02/18/19 07:55 Eosinophils # (Manual) 0.1 K/mm3 (0.0-0.4) 02/18/19 07:55 Basophils # (Manual) 0.0 K/mm3 (0.0-0.1) 02/18/19 07:55 Metamyelocytes # 0.0 K/mm3 02/18/19 07:55 Myelocytes # 0.0 K/mm3 02/18/19 07:55 Promyelocytes # 0.0 K/mm3 02/18/19 07:55 Blast Cells # 0.0 K/mm3 02/18/19 07:55 WBC Morphology Not Reportable 02/18/19 07:55 Hypersegmented Neuts Not Reportable 02/18/19 07:55 Hyposegmented Neuts Not Reportable 02/18/19 07:55 Hypogranular Neuts Not Reportable 02/18/19 07:55 Smudge Cells Not Reportable 02/18/19 07:55 Toxic Granulation Not Reportable 02/18/19 07:55 Toxic Vacuolation Not Reportable 02/18/19 07:55 Dohle Bodies Not Reportable 02/18/19 07:55 Pelger-Huet Anomaly Not Reportable 02/18/19 07:55 Reyes Rods Not Reportable 02/18/19 07:55 Platelet Estimate Consistent w auto 02/18/19 07:55 Clumped Platelets Not Reportable 02/18/19 07:55 Plt Clumps, EDTA Not Reportable 02/18/19 07:55 Large Platelets Not Reportable 02/18/19 07:55 Giant Platelets Not Reportable 02/18/19 07:55 Platelet Satelliting Not Reportable 02/18/19 07:55 Plt Morphology Comment Not Reportable 02/18/19 07:55 RBC Morphology Not Reportable 02/18/19 07:55 Dimorphic RBCs Not Reportable 02/18/19 07:55 Polychromasia Not Reportable 02/18/19 07:55 Hypochromasia Not Reportable 02/18/19 07:55 Poikilocytosis Not Reportable 02/18/19 07:55 Anisocytosis Not Reportable 02/18/19 07:55 Microcytosis Not Reportable 02/18/19 07:55 Macrocytosis Few 02/18/19 07:55 Spherocytes Not Reportable 02/18/19 07:55 Pappenheimer Bodies Not Reportable 02/18/19 07:55 Sickle Cells Not Reportable 02/18/19 07:55 Target Cells Not Reportable 02/18/19 07:55 Tear Drop Cells Not Reportable 02/18/19 07:55 Ovalocytes Few 02/18/19 07:55 Helmet Cells Not Reportable 02/18/19 07:55 [place] Bodies Not Reportable 02/18/19 07:55 Desha Rings Not Reportable 02/18/19 07:55 Otoniel Cells Not Reportable 02/18/19 07:55 Bite Cells Not Reportable 02/18/19 07:55 Crenated Cell Not Reportable 02/18/19 07:55 Elliptocytes Not Reportable 02/18/19 07:55 Acanthocytes (Spur) Not Reportable 02/18/19 07:55 Rouleaux Not Reportable 02/18/19 07:55 Hemoglobin C Crystals Not Reportable 02/18/19 07:55 Schistocytes Not Reportable 02/18/19 07:55 Malaria parasites Not Reportable 02/18/19 07:55 João Bodies Not Reportable 02/18/19 07:55 Hem Pathologist Commnt No 02/18/19 07:55 PT 15.3 Sec. (12.2-14.9) H 02/17/19 09:16 INR 1.22 (0.87-1.13) H 02/17/19 09:16 APTT 33.5 Sec. (24.2-36.6) 02/17/19 09:16 VBG pH 7.212 (7.320-7.420) L 02/17/19 11:46 Sodium 134 mmol/L (137-145) L D 02/21/19 09:11 Potassium 4.1 mmol/L (3.6-5.0) 02/21/19 09:11 Chloride 93.0 mmol/L (98-107) L 02/21/19 09:11 Carbon Dioxide 20 mmol/L (22-30) L 02/21/19 09:11 Anion Gap 25 mmol/L 02/21/19 09:11 BUN 47 mg/dL (9-20) H 02/21/19 09:11 Creatinine 5.6 mg/dL (0.8-1.5) H 02/21/19 09:11 Estimated GFR 13 ml/min 02/21/19 09:11 BUN/Creatinine Ratio 8 % 02/21/19 09:11 Glucose 146 mg/dL (75-100) H 02/21/19 09:11 POC Glucose 190 (70-105) H 02/18/19 07:12 Lactic Acid 1.20 mmol/L (0.7-2.0) 02/17/19 11:46 Calcium 8.7 mg/dL (8.4-10.2) 02/21/19 09:11 Total Bilirubin 0.60 mg/dL (0.1-1.2) 02/21/19 09:11 AST 21 units/L (5-40) 02/21/19 09:11 ALT 6 units/L (7-56) L 02/21/19 09:11 Alkaline Phosphatase 99 units/L (35-129) 02/21/19 09:11 Total Protein 6.8 g/dL (6.3-8.2) 02/21/19 09:11 Albumin 4.2 g/dL (3.9-5) 02/21/19 09:11 Albumin/Globulin Ratio 1.6 % 02/21/19 09:11 Hepatitis A IgM Ab Non-reactive (NonReactive) 02/17/19 20:43 Hep Bs Antigen Non-reactive (Negative) 02/17/19 20:43 Hep B Core IgM Ab Reactive (NonReactive) A 02/17/19 20:43 Hepatitis C Antibody Non-reactive (NonReactive) 02/17/19 20:43 Active Medications - Current Medications Current Medications: Generic Name Dose Route Start Last Admin Trade Name Freq PRN Reason Stop Dose Admin Acetaminophen 650 mg 02/17/19 16:16 02/17/19 20:03 Tylenol PO 650 mg Q4H PRN Administration Pain MILD(1-3)/Fever >100.5/WONG Albuterol 2.5 mg 02/17/19 16:16 Proventil IH Q4HRT PRN Shortness Of Breath Calcium Acetate 667 mg 02/18/19 12:00 02/21/19 16:59 Phoslo PO 667 mg TIDWM MAGDALENE Administration Cholestyramine Resin 4 gm 02/18/19 10:00 02/21/19 09:14 Questran PO 4 gm DAILY MAGDLAENE Administration Diphenhydramine HCl 25 mg 02/17/19 16:33 02/20/19 23:42 Benadryl PO 25 mg Q12H PRN Administration Itching Diphenoxylate HCl/Atropine 1 tab 02/17/19 16:34 Lomotil PO Q6H PRN Diarrhea Folic Acid 1 mg 02/18/19 10:00 02/21/19 09:13 Folvite PO 1 mg DAILY MAGDALENE Administration Sodium Chloride 100 mls @ 999 mls/hr 02/17/19 17:33 Nacl 0.9% IV RAEJEV PRN Hypotension Sodium Chloride 500 mls @ 50 mls/hr 02/18/19 14:00 Nacl 0.9% 500 Ml IV DIRECT MAGDALENE Lactobacillus Rhamnosus 1 each 02/17/19 22:00 02/21/19 09:14 Culturelle PO 1 each BID MAGDALENE Administration Levothyroxine Sodium 25 mcg 02/18/19 06:00 02/21/19 05:52 Synthroid PO 25 mcg DAILY@0600 MAGDALENE Administration Loperamide HCl 2 mg 02/17/19 16:17 Imodium PO QDAY PRN Diarrhea Losartan Potassium 50 mg 02/18/19 10:00 02/21/19 16:58 Cozaar PO 50 mg QDAY MAGDALENE Administration Metoprolol Tartrate 25 mg 02/17/19 17:00 02/21/19 16:58 Metoprolol PO 25 mg Q12HR MAGDALENE Administration Mirtazapine 15 mg 02/17/19 22:00 02/20/19 23:42 Remeron PO 15 mg QHS MAGDALENE Administration Ondansetron HCl 4 mg 02/17/19 16:16 Zofran IV Q8H PRN Nausea And Vomiting Sodium Chloride 10 ml 02/17/19 22:00 02/21/19 09:42 Sodium Chloride Flush Syringe 10 Ml IV 10 ml BID MAGDALENE Administration Sodium Chloride 10 ml 02/17/19 16:16 Sodium Chloride Flush Syringe 10 Ml IV PRN PRN LINE FLUSH Spironolactone 50 mg 02/18/19 10:00 02/21/19 16:59 Aldactone PO 50 mg QDAY MAGDALENE Administration Thiamine HCl 100 mg 02/18/19 10:00 02/20/19 10:17 Vitamin B-1 PO 100 mg QDAY MAGDALENE Administration Nutrition/Malnutrition Assess - Dietary Evaluation Nutrition/Malnutrition Findings: Nutrition Notes Start: 02/18/19 12:12 Freq: Status: Active Protocol: Document 02/20/19 11:18 CT (Rec: 02/20/19 11:21 CT [id number]) Co-Sign 02/20/19 11:18 LP Nutrition Notes Initial or Follow up Reassessment Current Diagnosis Diabetes,Hypertension Other Pertinent Diagnosis ESRD on HD, dementia, thrombocytopenia, Nicotine dependence, debility Current Diet Renal Labs/Tests POC Glu 190 Pertinent Medications Phoslo Remeron NS 50 ml/hr Height 5 ft 9 in Weight 56.2 kg [place] Body Weight (kg) 72.72 BMI 18.3 Weight Status Underweight Subjective/Other Information Follow up for diet advancement , PO/ONS intakes. Pt was eating breakfast at time of visit. Pt had eaten 75% of breakfast this am. Pt stated that he ate well yesterday. Per ADLs pt ate 75% of all meals the previous day. Pt stated that he has a good appetite. Pt has not received Nepro yet, made sure it was in the diet order. Percent of energy/protein needs met: 79% energy / 90% protein Burn Absent Trauma Absent Current % PO Good (75-100%) Minimum of two criteria Yes Energy Intake (non-severe) <75% Estimated Energy Requirement >7 days Body Fat Depletion Moderate depletion (severe) Muscle Mass Moderate Depletion (severe) Reduced Chrome Plater Helper Strength Measurably Reduced (severe) #1 Nutrition Diagnosis Malnutrition Diagnosis Progress(for reassessment Continues documentation) Is patient on ventilator? No Is Patient Ambulatory and/or Out of Bed No REE-([facility]-confined to bed) 1693.068 Kcal/Kg value to use for calculation 36 Approximate Energy Requirements Using 2022 kcal/Kg Calculation Used for Recommendations Kcal/kg Additional Notes Protein needs: 63-78 g/kg/day (1.2-1.5 g/kg/day) Fluid needs: 0086-8258 ml/day Nutrition Intervention Change Diet Order: Renal Diet Add Supplement/Snack (indicate name/kcal Add Nepro BID butterpecan and /protein ) vanilla Provides kCal: 850 Provides Protein (gm) 40 Goal #1 Meet >75% of energy and protein needs Goal #2 wt gain/maintenance Anticipated Discharge Needs: Renal diet Follow-Up By: 02/25/19 Additional Comments Follow for stable intakes
[2019-02-21] MEDS: THIAMINE 100 MG TAB PO SCH (19:22)
--- NOTE | 2019-02-22 01:17 | Consultation ---
REFERRING PHYSICIAN: Dr. Kenyetta Manriquez. INDICATION: Liver evaluation. HISTORY OF PRESENT ILLNESS: The patient is a 53-year-old white male with history of end-stage renal disease, on dialysis; dementia; thrombocytopenia; hypertension; diabetes as well as nicotine dependence. The patient also reports alcohol abuse in the past. The patient admitted because he pulled out his dialysis catheter. GI is consulted because labs were drawn, which showed a reactive hepatitis B core IgM antibody. The patient is not a best historian, but denies any known history of liver disease. He does readily admit to alcohol abuse in the past. He denies any other specific GI complaints including nausea, vomiting or abdominal pain. PAST MEDICAL HISTORY: 1. End-stage renal disease, on dialysis. 2. Dementia. 2. Thrombocytopenia. 4. Hypertension. 5. Diabetes. MEDICATIONS: Reviewed and updated in chart. ALLERGIES: MORPHINE. SOCIAL HISTORY: Alcohol abuse in the past. Prescription drug abuse in the past. FAMILY HISTORY: Negative for colon cancer. REVIEW OF SYSTEMS: GENERAL: Reports some weakness. HEENT: No visual complaints or tinnitus. PULMONARY: No shortness of breath. CARDIOVASCULAR: No chest pain. GASTROINTESTINAL: Reports no specific complaints. All points of 13-point review of systems otherwise negative. PHYSICAL EXAMINATION: VITAL SIGNS: Temperature of 97.8, pulse 79, respirations 18, blood pressure 160/90. GENERAL: Fairly thin, in no acute distress. HEENT: Pupils equal, round and reactive. PULMONARY: Rhonchi. CARDIOVASCULAR: Regular rhythm. ABDOMEN: Soft. SKIN: No obvious rashes. LABORATORY DATA: From 02/18/2019, white count of 2.9, hemoglobin and hematocrit of 9.6 and 28.5, platelet count of 25. Chem-7 pertinent for BUN and creatinine of 76 and 9.5. Hepatitis B core IgM antibody positive. All other labs related to acute hepatitis panel negative. ASSESSMENT AND PLAN: A 53-year-old male with medical problems noted above. Now noted to be hep B core IgM antibody positive. The patient denies a history of liver function test abnormalities. On review of this patient's chart, none of his LFTs have been abnormal with his last set of blood work in December and at that time, his hepatitis B core IgM was also positive. Doubt underlying severe liver disease. PLAN: 1. We will get liver function test today. 2. Hepatitis B viral load ordered. 3. No plans for liver biopsy or intervention. 4. If LFTs are stable, we will sign off. If any further intervention needed, can be done as an outpatient. 5. We will follow for now. JOB# [id number] CAB/NTS
[2019-02-22] MEDS: LEVOTHYROXINE 25 MCG TAB PO SCH (06:10)
--- NOTE | 2019-02-22 08:16 | Gastroenterology Progress Note ---
Assessment and Plan Liver: noted Hbv C Igm +, LFT's normal - viral load pending, can be followed as outpt - no signs to suggest liver disease and need acute management at this time - any follow up can be as outpt, will schedule when d/c'ed - will sign off, call if needed Subjective Date of service: 02/22/19 Interval history: - no GI complaints overnight Objective - Constitutional Vitals: Temp Pulse Resp BP Pulse Ox 97.5 F L 80 16 89/51 100 02/22/19 05:50 02/22/19 07:53 02/22/19 05:50 02/22/19 07:53 02/22/19 08:15 General appearance: no acute distress - EENT Eyes: PERRL - Respiratory Respiratory: bilateral: CTA - Cardiovascular Rhythm: regular Heart Sounds: Present: S1 & S2 - Gastrointestinal General gastrointestinal: Present: soft, non-tender, non-distended - Labs CBC & Chem 7: 02/18/19 07:55 02/21/19 09:11 Labs: Laboratory Results - last 24 hr 02/21/19 09:11 Sodium 134 L D Potassium 4.1 Chloride 93.0 L Carbon Dioxide 20 L Anion Gap 25 BUN 47 H Creatinine 5.6 H Estimated GFR 13 BUN/Creatinine Ratio 8 Glucose 146 H Calcium 8.7 Total Bilirubin 0.60 AST 21 ALT 6 L Alkaline Phosphatase 99 Total Protein 6.8 Albumin 4.2 Albumin/Globulin Ratio 1.6
[2019-02-22 08:37] LABS: Eosinophils # (Auto) 0.2 K/mm3 (0.0-0.4); Eosinophils % (Auto) 5.8 % (0.0-4.3); Hemoglobin 9.8 gm/dl (11.8-15.2); Lymphocytes # (Auto) 1.3 K/mm3 (1.2-5.4); Lymphocytes % (Auto) 30.7 % (13.4-35.0); Mean Corpuscular HGB Conc 34 % (32-34); Mean Corpuscular Volume 92 fl (84-94); Monocytes # (Auto) 0.5 K/mm3 (0.0-0.8); Monocytes % (Auto) 11.3 % (0.0-7.3); Red Blood Count 3.16 M/mm3 (3.65-5.03); Red Cell Distribution Width 14.3 % (13.2-15.2)
[2019-02-22 08:41] LABS: Platelet Count 33 K/mm3 (140-440)
[2019-02-22] MEDS: LOSARTAN 50 MG TAB PO SCH (09:50)
[2019-02-22] MEDS: SPIRONOLACTONE 25 MG TAB PO SCH (09:50)
--- NOTE | 2019-02-22 11:19 | Progress Note ---
Subjective Interval history: Patient was seen today for follow-up on multiple renal related issues Events of this hospitalization were noted he is currently being seen by gastroenterology service has had problem with a catheter yesterday and had to receive TPA Vitals intake output medications were reviewed Past medical history: Reviewed Family, social history: Reviewed Allergies: Reviewed Physical examination General: No acute distress Vitals: Reviewed HEENT: Oral mucosa moist no icterus Neck: Supple no thyromegaly nodular mass or JVD Chest: Clear to auscultation anteriorly Heart: Regular rate and rhythm S1-S2 heard no S3-S4 Abdomen: Soft nontender no suprapubic masses no organomegaly Extremity: Dry skin less than 1+ edema Psych: No evidence of any agitation and aggression noted Derm: No petechial rash Assessment and plan: End-stage renal disease currently on maintenance dialysis patient will need to continue his hemodialysis treatment 3 times per week Status post access placement, we will check with vascular surgery about options regarding alternate access In the outpatient setting his hepatitis B surface antigen is negative, hepatitis B surface antibody is positive ? If this IgM is a false-positive test patient will need hepatitis B virus DNA, currently followed by gastroenterology service He cannot return back to the clinic as we do not have any isolation room for now for hepatitis patient's He also has had difficult access issues and has had infection of his graft in the past Current dialysis days are Saturday and Saturday Continue with hemodialysis, monitor dialysis related labs Blood pressure is currently well-controlled volume status appears to be stable He has chronic pancytopenia current hemoglobin 9.6, e has seen [facility] Prognosis: Guarded We'll continue to follow and make recommendation from renal standpoint Objective - Vital Signs Vital signs: Vital Signs - 12hr 02/22/19 02/22/19 02/22/19 00:15 05:50 07:53 Temperature 99.0 F 97.5 F L Pulse Rate 77 75 80 Respiratory 16 16 Rate Blood Pressure 93/60 86/38 Blood Pressure 89/51 [Left] O2 Sat by Pulse 99 93 Oximetry 02/22/19 02/22/19 08:15 09:50 Temperature 99.0 F Pulse Rate 86 Respiratory 20 Rate Blood Pressure 92/44 Blood Pressure [Left] O2 Sat by Pulse 100 99 Oximetry - Lab 02/22/19 07:59 02/21/19 09:11 Most recent lab results Calcium 8.7 mg/dL (8.4-10.2) 02/21/19 09:11 Medications & Allergies - Medications Allergies/Adverse Reactions: Allergies morphine Allergy (Verified 02/17/19 08:48) Unknown Home Medications: Home Medications Medication Instructions Recorded Confirmed Last Taken Type Acidophilus 175 mg Capsule 100 mg PO BID 07/08/17 02/17/19 06/26/18 06:00 History 100 mg Benadryl CAP 25 mg PO Q12H PRN 07/08/17 02/17/19 03/16/18 History Folic Acid 1 mg PO DAILY 07/08/17 02/17/19 06/26/18 06:00 History Lantus VIAL 20 units SQ QHS 07/08/17 02/17/19 06/25/18 21:00 History Lomotil 2.5-0.025 mg Tablet 2.5 mg PO Q6H PRN 07/08/17 02/17/19 03/16/18 History Metoprolol Tartrate 25 mg PO Q12H 07/08/17 02/17/19 06/26/18 06:00 History 25 mg NovoLOG Flexpen 3 units SQ 07/08/17 02/17/19 06/25/18 21:00 History Phoslo 667 mg PO TID 07/08/17 02/17/19 06/25/18 21:00 History 667 mg Remeron 15 mg PO QHS 07/08/17 02/17/19 06/25/18 21:00 History 15 mg Synthroid 25 mcg PO QAM 07/08/17 02/17/19 06/26/18 06:00 History 25 mcg Thiamine HCl 100 mg PO DAILY 07/08/17 02/17/19 06/26/18 06:00 History 100 mg Losartan [Cozaar] 50 mg PO QDAY 03/17/18 02/17/19 05/06/18 History 50 mg Spironolactone [Aldactone] 50 mg PO QDAY 03/17/18 02/17/19 06/26/18 06:00 History 25 mg Cholestyramine/Aspartame 210 gm PO QDAY 02/17/19 02/17/19 Unknown History [Cholestyramine Light Powder] Insulin Aspart (Nf) [NovoLOG 100 0 unit SQ AC 02/17/19 02/17/19 Unknown History UNITS/ML VIAL] Loperamide HCl [Imodium A-D] 2 mg PO QDAY PRN 02/17/19 02/17/19 Unknown History Calcium Acetate [Phoslo] 667 mg PO TIDWM capsule 02/20/19 Unknown Rx Active Medications: Generic Name Dose Route Start Last Admin Trade Name Freq PRN Reason Stop Dose Admin Acetaminophen 650 mg 02/17/19 16:16 02/17/19 20:03 Tylenol PO 650 mg Q4H PRN Administration Pain MILD(1-3)/Fever >100.5/WONG Albuterol 2.5 mg 02/17/19 16:16 Proventil IH Q4HRT PRN Shortness Of Breath Calcium Acetate 667 mg 02/18/19 12:00 02/21/19 16:59 Phoslo PO 667 mg TIDWM MAGDALENE Administration Cholestyramine Resin 4 gm 02/18/19 10:00 02/21/19 09:14 Questran PO 4 gm DAILY MAGDALENE Administration Diphenhydramine HCl 25 mg 02/17/19 16:33 02/20/19 23:42 Benadryl PO 25 mg Q12H PRN Administration Itching Diphenoxylate HCl/Atropine 1 tab 02/17/19 16:34 Lomotil PO Q6H PRN Diarrhea Folic Acid 1 mg 02/18/19 10:00 02/21/19 09:13 Folvite PO 1 mg DAILY MAGDALENE Administration Sodium Chloride 100 mls @ 999 mls/hr 02/17/19 17:33 Nacl 0.9% IV [id number] PRN Hypotension Sodium Chloride 500 mls @ 50 mls/hr 02/18/19 14:00 Nacl 0.9% 500 Ml IV DIRECT MAGDALENE Lactobacillus Rhamnosus 1 each 02/17/19 22:00 02/21/19 21:33 Culturelle PO 1 each BID MAGDALENE Administration Levothyroxine Sodium 25 mcg 02/18/19 06:00 02/22/19 06:10 Synthroid PO 25 mcg DAILY@0600 MAGDALENE Administration Loperamide HCl 2 mg 02/17/19 16:17 Imodium PO QDAY PRN Diarrhea Losartan Potassium 50 mg 02/18/19 10:00 02/21/19 16:58 Cozaar PO 50 mg QDAY MAGDALENE Administration Metoprolol Tartrate 25 mg 02/17/19 17:00 02/21/19 22:20 Metoprolol PO Not Given Q12HR MAGDALENE Mirtazapine 15 mg 02/17/19 22:00 02/21/19 01:20 Remeron PO Not Given QHS MAGDALENE Ondansetron HCl 4 mg 02/17/19 16:16 Zofran IV Q8H PRN Nausea And Vomiting Sodium Chloride 10 ml 02/17/19 22:00 02/21/19 21:32 Sodium Chloride Flush Syringe 10 Ml IV 10 ml BID MAGDALENE Administration Sodium Chloride 10 ml 02/17/19 16:16 Sodium Chloride Flush Syringe 10 Ml IV PRN PRN LINE FLUSH Spironolactone 50 mg 02/18/19 10:00 02/21/19 16:59 Aldactone PO 50 mg QDAY MAGDALENE Administration Thiamine HCl 100 mg 02/18/19 10:00 02/21/19 19:22 Vitamin B-1 PO Not Given QDAY MAGDALENE
[2019-02-22] MEDS: CALCIUM ACETATE 667 MG CAP PO SCH ×3 (11:56→18:07)
[2019-02-22] MEDS: CHOLESTYRAMINE (WITH SUGAR) 4 GM PACKET PO SCH (13:18)
[2019-02-22] MEDS: THIAMINE 100 MG TAB PO SCH (13:18)
[2019-02-22] MEDS: LACTOBACILLUS RHAMNOSUS GG 1 EACH CAP PO SCH ×2 (13:18→21:22)
[2019-02-22] MEDS: FOLIC ACID 1 MG TAB PO SCH (13:18)
[2019-02-22] MEDS: METOPROLOL TARTRATE 25 MG TAB PO SCH ×2 (13:25→21:21)
--- NOTE | 2019-02-22 17:31 | Progress Note ---
Assessment and Plan Assessment and plan: Abnormal hepatitis panel ; Current Visit: Yes Status: Acute GI evaluated the patient liver: Positive IgM hepatitis C ,LFT's normal viral load pending, can be followed as outpt GI recommend outpatient evaluation Cleared for discharge ESRD (end stage renal disease) Current Visit: Yes Status: Acute S/P dialysis catheter replacement, HD per schedule, nephrology following Displacement of vascular dialysis catheter Current Visit: Yes Status: Acute S/P left IJ permacath insertion Chronic thrombocytopenia Current Visit: Yes Status: Acute patient was evaluated by hematology oncology during past admission Closely monitor, platelet transfusion if needed Metabolic acidosis Current Visit: Yes Status: Acute IVF resuscitation therapy as tolerated, supportive care, repeat bmp, DVT prophylaxis Current Visit: Yes Status: Acute SCD to BLE while in bed, hold anticoagulation due to thrombocytopenia Monitor closely and adjust management as needed Disposition per nephrology Possible discharge tomorrow if stable History Interval history: Patient seen and examined medical records reviewed Patient feels better no new complaints Abnormal hepatitis panel, viral load pending Patient is alert and awake Denies chest pain or shortness of breath Vital signs noted Hospitalist Physical - Constitutional Vitals: Temp Pulse Resp BP Pulse Ox 99.0 F 90 20 124/56 99 02/22/19 09:50 02/22/19 13:25 02/22/19 09:50 02/22/19 13:25 02/22/19 09:50 General appearance: Present: no acute distress, well-nourished - EENT Eyes: Present: PERRL, EOM intact - Neck Neck: Present: supple, normal ROM - Respiratory Respiratory effort: normal Respiratory: bilateral: diminished, negative: rales, rhonchi, wheezing - Cardiovascular Rhythm: regular Heart Sounds: Present: S1 & S2 - Extremities Extremities: no ischemia, No edema - Abdominal General gastrointestinal: soft, non-tender, non-distended, normal bowel sounds - Integumentary Integumentary: Present: clear, warm - Psychiatric Psychiatric: appropriate mood/affect, cooperative - Neurologic Neurologic: CNII-XII intact, moves all extremities Results - Labs CBC & Chem 7: 02/22/19 07:59 02/21/19 09:11 Labs: Laboratory Last Values WBC 4.3 K/mm3 (4.5-11.0) L 02/22/19 07:59 RBC 3.16 M/mm3 (3.65-5.03) L 02/22/19 07:59 Hgb 9.8 gm/dl (11.8-15.2) L 02/22/19 07:59 Hct 29.0 % (35.5-45.6) L 02/22/19 07:59 MCV 92 fl (84-94) 02/22/19 07:59 MCH 31 pg (28-32) 02/22/19 07:59 MCHC 34 % (32-34) 02/22/19 07:59 RDW 14.3 % (13.2-15.2) 02/22/19 07:59 Plt Count 33 K/mm3 (140-440) L 02/22/19 07:59 Lymph % (Auto) 30.7 % (13.4-35.0) 02/22/19 07:59 Republic % (Auto) 11.3 % (0.0-7.3) H 02/22/19 07:59 Eos % (Auto) 5.8 % (0.0-4.3) H 02/22/19 07:59 Baso % (Auto) 1.0 % (0.0-1.8) 02/22/19 07:59 Lymph # 1.3 K/mm3 (1.2-5.4) 02/22/19 07:59 Republic # 0.5 K/mm3 (0.0-0.8) 02/22/19 07:59 Eos # 0.2 K/mm3 (0.0-0.4) 02/22/19 07:59 Baso # 0.0 K/mm3 (0.0-0.1) 02/22/19 07:59 Add Manual Diff Complete 02/18/19 07:55 Total Counted 100 02/18/19 07:55 Seg Neutrophils % 51.2 % (40.0-70.0) 02/22/19 07:59 Seg Neuts % (Manual) 84.0 % (40.0-70.0) H 02/18/19 07:55 Band Neutrophils % 0 % 02/18/19 07:55 Lymphocytes % (Manual) 10.0 % (13.4-35.0) L 02/18/19 07:55 Reactive Lymphs % (Man) 0 % 02/18/19 07:55 Monocytes % (Manual) 3.0 % (0.0-7.3) 02/18/19 07:55 Eosinophils % (Manual) 3.0 % (0.0-4.3) 02/18/19 07:55 Basophils % (Manual) 0 % (0.0-1.8) 02/18/19 07:55 Metamyelocytes % 0 % 02/18/19 07:55 Myelocytes % 0 % 02/18/19 07:55 Promyelocytes % 0 % 02/18/19 07:55 Blast Cells % 0 % 02/18/19 07:55 Nucleated RBC % Not Reportable 02/18/19 07:55 Seg Neutrophils # 2.2 K/mm3 (1.8-7.7) 02/22/19 07:59 Seg Neutrophils # Man 2.4 K/mm3 (1.8-7.7) 02/18/19 07:55 Band Neutrophils # 0.0 K/mm3 02/18/19 07:55 Lymphocytes # (Manual) 0.3 K/mm3 (1.2-5.4) L 02/18/19 07:55 Abs React Lymphs (Man) 0.0 K/mm3 02/18/19 07:55 Monocytes # (Manual) 0.1 K/mm3 (0.0-0.8) 02/18/19 07:55 Eosinophils # (Manual) 0.1 K/mm3 (0.0-0.4) 02/18/19 07:55 Basophils # (Manual) 0.0 K/mm3 (0.0-0.1) 02/18/19 07:55 Metamyelocytes # 0.0 K/mm3 02/18/19 07:55 Myelocytes # 0.0 K/mm3 02/18/19 07:55 Promyelocytes # 0.0 K/mm3 02/18/19 07:55 Blast Cells # 0.0 K/mm3 02/18/19 07:55 WBC Morphology Not Reportable 02/18/19 07:55 Hypersegmented Neuts Not Reportable 02/18/19 07:55 Hyposegmented Neuts Not Reportable 02/18/19 07:55 Hypogranular Neuts Not Reportable 02/18/19 07:55 Smudge Cells Not Reportable 02/18/19 07:55 Toxic Granulation Not Reportable 02/18/19 07:55 Toxic Vacuolation Not Reportable 02/18/19 07:55 Dohle Bodies Not Reportable 02/18/19 07:55 Pelger-Huet Anomaly Not Reportable 02/18/19 07:55 Reyes Rods Not Reportable 02/18/19 07:55 Platelet Estimate Consistent w auto 02/18/19 07:55 Clumped Platelets Not Reportable 02/18/19 07:55 Plt Clumps, EDTA Not Reportable 02/18/19 07:55 Large Platelets Not Reportable 02/18/19 07:55 Giant Platelets Not Reportable 02/18/19 07:55 Platelet Satelliting Not Reportable 02/18/19 07:55 Plt Morphology Comment Not Reportable 02/18/19 07:55 RBC Morphology Not Reportable 02/18/19 07:55 Dimorphic RBCs Not Reportable 02/18/19 07:55 Polychromasia Not Reportable 02/18/19 07:55 Hypochromasia Not Reportable 02/18/19 07:55 Poikilocytosis Not Reportable 02/18/19 07:55 Anisocytosis Not Reportable 02/18/19 07:55 Microcytosis Not Reportable 02/18/19 07:55 Macrocytosis Few 02/18/19 07:55 Spherocytes Not Reportable 02/18/19 07:55 Pappenheimer Bodies Not Reportable 02/18/19 07:55 Sickle Cells Not Reportable 02/18/19 07:55 Target Cells Not Reportable 02/18/19 07:55 Tear Drop Cells Not Reportable 02/18/19 07:55 Ovalocytes Few 02/18/19 07:55 Helmet Cells Not Reportable 02/18/19 07:55 Preston-Dixie Bodies Not Reportable 02/18/19 07:55 Templeton Rings Not Reportable 02/18/19 07:55 Otoniel Cells Not Reportable 02/18/19 07:55 Bite Cells Not Reportable 02/18/19 07:55 Crenated Cell Not Reportable 02/18/19 07:55 Elliptocytes Not Reportable 02/18/19 07:55 Acanthocytes (Spur) Not Reportable 02/18/19 07:55 Rouleaux Not Reportable 02/18/19 07:55 Hemoglobin C Crystals Not Reportable 02/18/19 07:55 Schistocytes Not Reportable 02/18/19 07:55 Malaria parasites Not Reportable 02/18/19 07:55 João Bodies Not Reportable 02/18/19 07:55 Hem Pathologist Commnt No 02/18/19 07:55 PT 15.3 Sec. (12.2-14.9) H 02/17/19 09:16 INR 1.22 (0.87-1.13) H 02/17/19 09:16 APTT 33.5 Sec. (24.2-36.6) 02/17/19 09:16 VBG pH 7.212 (7.320-7.420) L 02/17/19 11:46 Sodium 134 mmol/L (137-145) L D 02/21/19 09:11 Potassium 4.1 mmol/L (3.6-5.0) 02/21/19 09:11 Chloride 93.0 mmol/L (98-107) L 02/21/19 09:11 Carbon Dioxide 20 mmol/L (22-30) L 02/21/19 09:11 Anion Gap 25 mmol/L 02/21/19 09:11 BUN 47 mg/dL (9-20) H 02/21/19 09:11 Creatinine 5.6 mg/dL (0.8-1.5) H 02/21/19 09:11 Estimated GFR 13 ml/min 02/21/19 09:11 BUN/Creatinine Ratio 8 % 02/21/19 09:11 Glucose 146 mg/dL (75-100) H 02/21/19 09:11 POC Glucose 190 (70-105) H 02/18/19 07:12 Lactic Acid 1.20 mmol/L (0.7-2.0) 02/17/19 11:46 Calcium 8.7 mg/dL (8.4-10.2) 02/21/19 09:11 Total Bilirubin 0.60 mg/dL (0.1-1.2) 02/21/19 09:11 AST 21 units/L (5-40) 02/21/19 09:11 ALT 6 units/L (7-56) L 02/21/19 09:11 Alkaline Phosphatase 99 units/L (35-129) 02/21/19 09:11 Total Protein 6.8 g/dL (6.3-8.2) 02/21/19 09:11 Albumin 4.2 g/dL (3.9-5) 02/21/19 09:11 Albumin/Globulin Ratio 1.6 % 02/21/19 09:11 Hepatitis A IgM Ab Non-reactive (NonReactive) 02/17/19 20:43 Hep Bs Antigen Non-reactive (Negative) 02/17/19 20:43 Hep B Core IgM Ab Reactive (NonReactive) A 02/17/19 20:43 Hepatitis C Antibody Non-reactive (NonReactive) 02/17/19 20:43 Active Medications - Current Medications Current Medications: Generic Name Dose Route Start Last Admin Trade Name Freq PRN Reason Stop Dose Admin Acetaminophen 650 mg 02/17/19 16:16 02/17/19 20:03 Tylenol PO 650 mg Q4H PRN Administration Pain MILD(1-3)/Fever >100.5/WONG Albuterol 2.5 mg 02/17/19 16:16 Proventil IH Q4HRT PRN Shortness Of Breath Calcium Acetate 667 mg 02/18/19 12:00 02/22/19 13:17 Phoslo PO 667 mg TIDWM MAGDALENE Administration Cholestyramine Resin 4 gm 02/18/19 10:00 02/22/19 13:18 Questran PO 4 gm DAILY MAGDALENE Administration Diphenhydramine HCl 25 mg 02/17/19 16:33 02/20/19 23:42 Benadryl PO 25 mg Q12H PRN Administration Itching Diphenoxylate HCl/Atropine 1 tab 02/17/19 16:34 Lomotil PO Q6H PRN Diarrhea Folic Acid 1 mg 02/18/19 10:00 02/22/19 13:18 Folvite PO 1 mg DAILY MAGDALENE Administration Sodium Chloride 100 mls @ 999 mls/hr 02/17/19 17:33 Nacl 0.9% IV RAJEEV PRN Hypotension Sodium Chloride 500 mls @ 50 mls/hr 02/18/19 14:00 Nacl 0.9% 500 Ml IV DIRECT MAGDALENE Lactobacillus Rhamnosus 1 each 02/17/19 22:00 02/22/19 13:18 Culturelle PO 1 each BID MAGDALENE Administration Levothyroxine Sodium 25 mcg 02/18/19 06:00 02/22/19 06:10 Synthroid PO 25 mcg DAILY@0600 MAGDALENE Administration Loperamide HCl 2 mg 02/17/19 16:17 Imodium PO QDAY PRN Diarrhea Losartan Potassium 50 mg 02/18/19 10:00 02/22/19 09:50 Cozaar PO Not Given QDAY MAGDALENE Metoprolol Tartrate 25 mg 02/17/19 17:00 02/22/19 13:25 Metoprolol PO 25 mg Q12HR MAGDALENE Administration Mirtazapine 15 mg 02/17/19 22:00 02/21/19 01:20 Remeron PO Not Given QHS MAGDALENE Ondansetron HCl 4 mg 02/17/19 16:16 Zofran IV Q8H PRN Nausea And Vomiting Sodium Chloride 10 ml 02/17/19 22:00 02/22/19 13:18 Sodium Chloride Flush Syringe 10 Ml IV 10 ml BID MAGDALENE Administration Sodium Chloride 10 ml 02/17/19 16:16 Sodium Chloride Flush Syringe 10 Ml IV PRN PRN LINE FLUSH Spironolactone 50 mg 02/18/19 10:00 02/22/19 09:50 Aldactone PO Not Given QDAY MAGDALENE Thiamine HCl 100 mg 02/18/19 10:00 02/22/19 13:18 Vitamin B-1 PO 100 mg QDAY MAGDALENE Administration Nutrition/Malnutrition Assess - Dietary Evaluation Nutrition/Malnutrition Findings: Nutrition Notes Start: 02/18/19 12:12 Freq: Status: Active Protocol: Document 02/20/19 11:18 CT (Rec: 02/20/19 11:21 CT [id number]) Co-Sign 02/20/19 11:18 LP Nutrition Notes Initial or Follow up Reassessment Current Diagnosis Diabetes,Hypertension Other Pertinent Diagnosis ESRD on HD, dementia, thrombocytopenia, Nicotine dependence, debility Current Diet Renal Labs/Tests POC Glu 190 Pertinent Medications Phoslo Remeron NS 50 ml/hr Height 5 ft 9 in Weight 56.2 kg Hamel Body Weight (kg) 72.72 BMI 18.3 Weight Status Underweight Subjective/Other Information Follow up for diet advancement , PO/ONS intakes. Pt was eating breakfast at time of visit. Pt had eaten 75% of breakfast this am. Pt stated that he ate well yesterday. Per ADLs pt ate 75% of all meals the previous day. Pt stated that he has a good appetite. Pt has not received Nepro yet, made sure it was in the diet order. Percent of energy/protein needs met: 79% energy / 90% protein Burn Absent Trauma Absent Current % PO Good (75-100%) Minimum of two criteria Yes Energy Intake (non-severe) <75% Estimated Energy Requirement >7 days Body Fat Depletion Moderate depletion (severe) Muscle Mass Moderate Depletion (severe) Reduced Bi Tri Operator Strength Measurably Reduced (severe) #1 Nutrition Diagnosis Malnutrition Diagnosis Progress(for reassessment Continues documentation) Is patient on ventilator? No Is Patient Ambulatory and/or Out of Bed No REE-([facility]-confined to bed) 1693.068 Kcal/Kg value to use for calculation 36 Approximate Energy Requirements Using 2022 kcal/Kg Calculation Used for Recommendations Kcal/kg Additional Notes Protein needs: 63-78 g/kg/day (1.2-1.5 g/kg/day) Fluid needs: 4860-3263 ml/day Nutrition Intervention Change Diet Order: Renal Diet Add Supplement/Snack (indicate name/kcal Add Nepro BID butterpecan and /protein ) vanilla Provides kCal: 850 Provides Protein (gm) 40 Goal #1 Meet >75% of energy and protein needs Goal #2 wt gain/maintenance Anticipated Discharge Needs: Renal diet Follow-Up By: 02/25/19 Additional Comments Follow for stable intakes
[2019-02-22] MEDS ORDERED: SODIUM CHLORIDE 0.9% 250ML 250 ML IV ONE (20:00)
[2019-02-22] MEDS: MIRTAZAPINE 15 MG TAB PO SCH (21:23)
[2019-02-22] MEDS: SODIUM CHLORIDE 0.9% 500 ML 500 ML IV SCH (23:45)
[2019-02-23] MEDS: LEVOTHYROXINE 25 MCG TAB PO SCH (05:17)
[2019-02-23] MEDS: SODIUM CHLORIDE 0.9% 500 ML 500 ML IV SCH (09:08)
[2019-02-23] MEDS: LACTOBACILLUS RHAMNOSUS GG 1 EACH CAP PO SCH (09:11)
[2019-02-23] MEDS: CHOLESTYRAMINE (WITH SUGAR) 4 GM PACKET PO SCH (09:11)
[2019-02-23] MEDS: CALCIUM ACETATE 667 MG CAP PO SCH ×2 (09:11→12:52)
[2019-02-23] MEDS: FOLIC ACID 1 MG TAB PO SCH (09:12)
[2019-02-23] MEDS: THIAMINE 100 MG TAB PO SCH (09:12)
[2019-02-23] MEDS: METOPROLOL TARTRATE 25 MG TAB PO SCH (09:14)
[2019-02-23] MEDS: LOSARTAN 50 MG TAB PO SCH (09:15)
[2019-02-23] MEDS: SPIRONOLACTONE 25 MG TAB PO SCH (09:17)
--- NOTE | 2019-02-23 10:05 | Progress Note ---
Assessment and Plan # End-stage renal disease currently on maintenance dialysis: - continue HD //, no indications for HD today based on labs/volume, due tomorrow - access ([facility]) intact; has had issues with AVF previously - hepatitis B surface antibody is positive; GI follows and no evidence of active infection, will follow outpatient - appreciate case management in dialysis placement - daily renal labs while inpatient - avoid nephrotoxins - renally dose meds - renal diet # HTN: BP reasonable, will monitor for hypotension. UF as tolerated with HD # Anemia: hemoglobin 9.8, close to goal for ESRD. Hold ESAs for now. Follows with hematology, has chronic pancytopenia # Bone Mineral Disease/Secondary Hyperparathyroidism: continue home binders Thank you for this consult. We will continue to follow and make recommendation from renal standpoint Subjective Date of service: 02/23/19 Principal diagnosis: ESRD Interval history: No acute events noted this AM. Feels well, feels ready to go back to his nursing facility. Denies any issues with HD recently. No dyspnea, no chest pain noted. Objective - Exam Narrative Exam: General: No acute distress, chronically ill appearing HEENT: Oral mucosa moist, no icterus Neck: Supple Chest: Clear to auscultation anteriorly Heart: Regular rate and rhythm, normal S1-S2 Abdomen: Soft nontender Extremity: no edema, normal range of motion Psych: No evidence of any agitation and aggression noted Derm: intact - Vital Signs Vital signs: Vital Signs - 12hr 02/22/19 02/23/19 02/23/19 23:32 05:30 09:14 Temperature 98.8 F 98.2 F Pulse Rate 73 76 Respiratory 16 18 Rate Blood Pressure 82/35 103/37 109/61 O2 Sat by Pulse 99 Oximetry 02/23/19 02/23/19 09:15 09:17 Temperature Pulse Rate 76 76 Respiratory Rate Blood Pressure 109/61 109/61 O2 Sat by Pulse Oximetry - Lab 02/22/19 07:59 02/21/19 09:11 Most recent lab results Calcium 8.7 mg/dL (8.4-10.2) 02/21/19 09:11 Medications & Allergies - Medications Allergies/Adverse Reactions: Allergies morphine Allergy (Verified 02/17/19 08:48) Unknown Home Medications: Home Medications Medication Instructions Recorded Confirmed Last Taken Type Acidophilus 175 mg Capsule 100 mg PO BID 07/08/17 02/17/19 06/26/18 06:00 History 100 mg Benadryl CAP 25 mg PO Q12H PRN 07/08/17 02/17/19 03/16/18 History Folic Acid 1 mg PO DAILY 07/08/17 02/17/19 06/26/18 06:00 History Lantus VIAL 20 units SQ QHS 07/08/17 02/17/19 06/25/18 21:00 History Lomotil 2.5-0.025 mg Tablet 2.5 mg PO Q6H PRN 07/08/17 02/17/19 03/16/18 History Metoprolol Tartrate 25 mg PO Q12H 07/08/17 02/17/19 06/26/18 06:00 History 25 mg NovoLOG Flexpen 3 units SQ AC 07/08/17 02/17/19 06/25/18 21:00 History Phoslo 667 mg PO TID 07/08/17 02/17/19 06/25/18 21:00 History 667 mg Remeron 15 mg PO QHS 07/08/17 02/17/19 06/25/18 21:00 History 15 mg Synthroid 25 mcg PO QAM 07/08/17 02/17/19 06/26/18 06:00 History 25 mcg Thiamine HCl 100 mg PO DAILY 07/08/17 02/17/19 06/26/18 06:00 History 100 mg Losartan [Cozaar] 50 mg PO QDAY 03/17/18 02/17/19 05/06/18 History 50 mg Spironolactone [Aldactone] 50 mg PO QDAY 03/17/18 02/17/19 06/26/18 06:00 History 25 mg Cholestyramine/Aspartame 210 gm PO QDAY 02/17/19 02/17/19 Unknown History [Cholestyramine Light Powder] Insulin Aspart (Nf) [NovoLOG 100 0 unit SQ AC 02/17/19 02/17/19 Unknown History UNITS/ML VIAL] Loperamide HCl [Imodium A-D] 2 mg PO QDAY PRN 02/17/19 02/17/19 Unknown History Calcium Acetate [Phoslo] 667 mg PO TIDWM capsule 02/20/19 Unknown Rx Active Medications: Generic Name Dose Route Start Last Admin Trade Name Freq PRN Reason Stop Dose Admin Acetaminophen 650 mg 02/17/19 16:16 02/17/19 20:03 Tylenol PO 650 mg Q4H PRN Administration Pain MILD(1-3)/Fever >100.5/WONG Albuterol 2.5 mg 02/17/19 16:16 Proventil IH Q4HRT PRN Shortness Of Breath Calcium Acetate 667 mg 02/18/19 12:00 02/23/19 09:11 Phoslo PO 667 mg TIDWM MAGDALENE Administration Cholestyramine Resin 4 gm 02/18/19 10:00 02/23/19 09:11 Questran PO 4 gm DAILY MAGDALENE Administration Diphenhydramine HCl 25 mg 02/17/19 16:33 02/20/19 23:42 Benadryl PO 25 mg Q12H PRN Administration Itching Diphenoxylate HCl/Atropine 1 tab 02/17/19 16:34 Lomotil PO Q6H PRN Diarrhea Folic Acid 1 mg 02/18/19 10:00 02/23/19 09:12 Folvite PO 1 mg DAILY MAGDALENE Administration Sodium Chloride 100 mls @ 999 mls/hr 02/17/19 17:33 Nacl 0.9% IV RAJEEV PRN Hypotension Sodium Chloride 500 mls @ 50 mls/hr 02/18/19 14:00 02/23/19 09:08 Nacl 0.9% 500 Ml IV 50 mls/hr DIRECT MAGDALENE Administration Lactobacillus Rhamnosus 1 each 02/17/19 22:00 02/23/19 09:11 Culturelle PO 1 each BID MAGDALENE Administration Levothyroxine Sodium 25 mcg 02/18/19 06:00 02/23/19 05:17 Synthroid PO 25 mcg DAILY@0600 MAGDALENE Administration Loperamide HCl 2 mg 02/17/19 16:17 02/22/19 18:07 Imodium PO 2 mg QDAY PRN Administration Diarrhea Losartan Potassium 50 mg 02/18/19 10:00 02/23/19 09:15 Cozaar PO Not Given QDAY MAGDALENE Metoprolol Tartrate 25 mg 02/17/19 17:00 02/23/19 09:14 Metoprolol PO Not Given Q12HR MAGDALENE Mirtazapine 15 mg 02/17/19 22:00 02/22/19 21:23 Remeron PO 15 mg QHS MAGDALENE Administration Ondansetron HCl 4 mg 02/17/19 16:16 Zofran IV Q8H PRN Nausea And Vomiting Sodium Chloride 10 ml 02/17/19 22:00 02/23/19 09:13 Sodium Chloride Flush Syringe 10 Ml IV 10 ml BID MAGDALENE Administration Sodium Chloride 10 ml 02/17/19 16:16 Sodium Chloride Flush Syringe 10 Ml IV PRN PRN LINE FLUSH Spironolactone 50 mg 02/18/19 10:00 02/23/19 09:17 Aldactone PO Not Given QDAY MAGDALENE Thiamine HCl 100 mg 02/18/19 10:00 02/23/19 09:12 Vitamin B-1 PO 100 mg QDAY MAGDALENE Administration
[2019-02-23] MEDS: ACETAMINOPHEN 325 MG TAB PO PRN (10:33)
--- NOTE | 2019-02-23 15:41 | Discharge Summary ---
Providers - Providers Date of Admission: 02/19/19 11:17 Date of discharge: 02/23/19 Attending physician: WOLF CHAPMAN 02/17/19 11:23 Consult to Physician [CONS] Urgent Comment: Dr. Rudolph spoke with Dr. Vasquez @ [phone] Consulting Provider: BASSEM VASQUEZ Physician Instructions: Reason For Exam: need dialysis access 02/17/19 11:31 Consult to Physician [CONS] Urgent Comment: Dr. Rudolph spoke with Carolyn @ [id number] Consulting Provider: RAMIRO MENCHACA Physician Instructions: Reason For Exam: esrd 02/20/19 18:56 Consult to Physician [CONS] Routine Comment: Consulting Provider: JYOTI COATS Physician Instructions: Reason For Exam: abnormal hepatitis panel 02/21/19 15:36 Consult to Wound/ET Nurse [CONS] Routine Reason For Exam: wound eval Primary care physician: MORTGAGE COUNSELOR Hospitalization Condition: Stable Hospital course: Abnormal hepatitis panel ; Current Visit: Yes Status: Acute GI evaluated the patient liver: Positive IgM hepatitis C ,LFT's normal viral load pending, can be followed as outpt GI evaluated, does not show active liver disease Cleared for discharge and follow-up as outpatient ESRD (end stage renal disease) Current Visit: Yes Status: Acute S/P dialysis catheter replacement, HD per schedule, nephrology following Displacement of vascular dialysis catheter Current Visit: Yes Status: Acute S/P left IJ permacath insertion Chronic thrombocytopenia Current Visit: Yes Status: Acute patient was evaluated by hematology oncology during past admission Closely monitor, platelet transfusion if needed Metabolic acidosis Current Visit: Yes Status: Acute IVF resuscitation therapy as tolerated, supportive care, repeat bmp, DVT prophylaxis Current Visit: Yes Status: Acute SCD to BLE while in bed, hold anticoagulation due to thrombocytopenia Monitor closely and adjust management as needed Disposition per nephrology Possible discharge tomorrow if stable Disposition: [id number] Time spent for discharge: 32 min Core Measure Documentation - Palliative Care Palliative Care/ Comfort Measures: Not Applicable - Core Measures Any of the following diagnoses?: none Exam - Constitutional Vitals: Temp Pulse Resp BP Pulse Ox 98.6 F 74 19 100/58 100 02/23/19 12:40 02/23/19 12:40 02/23/19 12:40 02/23/19 12:40 12/16/19 12:40 General appearance: Present: no acute distress, well-nourished - EENT Eyes: Present: PERRL, EOM intact - Neck Neck: Present: supple, normal ROM - Respiratory Respiratory effort: normal Respiratory: bilateral: diminished, negative: rales, rhonchi, wheezing - Cardiovascular Rhythm: regular Heart Sounds: Present: S1 & S2 - Extremities Extremities: no ischemia, No edema - Abdominal General gastrointestinal: Present: soft, non-tender, non-distended, normal bowel sounds - Integumentary Integumentary: Present: clear, warm Plan Activity: advance as tolerated, fall precautions Diet: renal Additional Instructions: Follow renal and hemodialysis per schedule. Fall precautions Follow up with: RAMIRO MENCHACA MD [Staff Physician] - 7 Days PRIMARY CAREMD [Primary Care Provider] - 7 Days TOMMY BRAND MD [Staff Physician] - 14 Days WEST VILLELA MD [Staff Physician] - 7 Days
[2019-02-23 18:31] VITALS: BP 114/69
== END 2019-02-23 17:59 | DRG 314 ==
LOC: ED 08:22 → 3A 11:57 → OBSVTOIN 02-19 11:17
PROVIDERS: ADMIT Internal Medicine; ATTEND Internal Medicine
PROC: 0JH63XZ Insertion of Tunneled Vascular Access Device into Chest Subcutaneous Tissue and Fascia, Percutaneous Approach (ICD-10-PCS; principal; 2019-02-18)
PROC: 02HV33Z Insertion of Infusion Device into Superior Vena Cava, Percutaneous Approach (ICD-10-PCS; 2019-02-18)
PROC: B5131ZZ Fluoroscopy of Right Jugular Veins using Low Osmolar Contrast (ICD-10-PCS; 2019-02-18)
PROC: B543ZZA Ultrasonography of Right Jugular Veins, Guidance (ICD-10-PCS; 2019-02-18)
PROC: 5A1D70Z Performance of Urinary Filtration, Intermittent, Less than 6 Hours Per Day (ICD-10-PCS; 2019-02-18)
PROC: 5A1D70Z Performance of Urinary Filtration, Intermittent, Less than 6 Hours Per Day (ICD-10-PCS; 2019-02-19)
PROC: 5A1D70Z Performance of Urinary Filtration, Intermittent, Less than 6 Hours Per Day (ICD-10-PCS; 2019-02-21)
DX: T82.42XA Displacement of vascular dialysis catheter, initial encounter (principal); N18.6 End stage renal disease; E43 Unspecified severe protein-calorie malnutrition; I12.0 Hypertensive chronic kidney disease with stage 5 chronic kidney disease or end stage renal disease; E87.2 Acidosis; N25.81 Secondary hyperparathyroidism of renal origin; D61.818 Other pancytopenia; Z68.1 Body mass index [BMI] 19.9 or less, adult; T68.XXXA Hypothermia, initial encounter; D69.6 Thrombocytopenia, unspecified; F03.90 Unspecified dementia, unspecified severity, without behavioral disturbance, psychotic disturbance, mood disturbance, and anxiety; E11.22 Type 2 diabetes mellitus with diabetic chronic kidney disease; D72.819 Decreased white blood cell count, unspecified; D63.1 Anemia in chronic kidney disease; F17.200 Nicotine dependence, unspecified, uncomplicated; Z88.5 Allergy status to narcotic agent; Z79.899 Other long term (current) drug therapy; Z99.2 Dependence on renal dialysis; Z82.49 Family history of ischemic heart disease and other diseases of the circulatory system
CPT/HCPCS: 36415; 36558; 71045; 77001; 80048; 80053; 80074; 82140; 82805; 82947; 82962; 85007; 85025; 85610; 85730; 87040; 87517; 96374; G0378; C1750; J0690; J1644; J2250; J2997; J3010; J7030; J7040; J7050; Q9967

== ENCOUNTER 2019-04-23 11:56 | Inpatient (IN) | payer MEDICARE ==
--- NOTE | 2019-04-23 12:40 | Emergency Department Report ---
HPI - General Chief Complaint: Hypoglycemia Time Seen by Provider: 04/23/19 12:00 - HPI HPI: 53-year-old male presents to the emergency department via EMS from dialysis with a complaint of hypoglycemia and altered mental status. The patient is end-stage renal disease on Saturday, , Saturday and apparently completed his dialysis today but appeared altered. His blood sugar was checked and it was about 30. He was given some oral glucose that did not help so EMS was called and then he was given some IV dextrose and his blood sugar went up to about 130. On top of the end-stage renal disease, the patient has a history of dementia and is a poor historian. He says that he is coming from a motel and is unsure who called EMS or as to why he is currently in the emergency department. The patient was here about 1 month ago for evaluation of altered mental status at that time. Also at that time the patient had some hypotension and diarrhea. ED Past Medical Hx - Past Medical History Hx Hypertension: Yes Hx Heart Attack/AMI: No Hx Congestive Heart Failure: No Hx Diabetes: Yes Hx Renal Disease: Yes Hx Asthma: No Hx COPD: No Hx Dementia: Yes Additional medical history: unable to walk due to weak leg muscles - Surgical History Additional Surgical History: vas cath to right chest wall - Social History Smoking Status: Unknown if ever smoked - Medications Home Medications: Home Medications Medication Instructions Recorded Confirmed Last Taken Type Benadryl CAP 25 mg PO Q12H PRN 07/08/17 03/27/19 03/16/18 History Folic Acid 1 mg PO DAILY 07/08/17 03/27/19 06/26/18 06:00 History Lomotil 2.5-0.025 mg Tablet 2.5 mg PO Q6H PRN 07/08/17 03/27/19 03/16/18 History Metoprolol Tartrate 25 mg PO Q12H 07/08/17 03/27/19 06/26/18 06:00 History 25 mg NovoLOG Flexpen 3 units SQ AC 07/08/17 03/27/19 06/25/18 21:00 History Phoslo 1,334 mg PO TIDWM 07/08/17 03/27/19 06/25/18 21:00 History 667 mg Remeron 15 mg PO QHS 07/08/17 03/27/19 06/25/18 21:00 History 15 mg Synthroid 25 mcg PO QAM 07/08/17 03/27/19 06/26/18 06:00 History 25 mcg Thiamine HCl 100 mg PO DAILY 07/08/17 03/27/19 06/26/18 06:00 History 100 mg l Acidophil/B Lactis/B Longum 1 cap PO BID #0 07/08/17 03/27/19 06/26/18 06:00 History 100 mg Cholestyramine/Aspartame 210 gm PO QDAY 02/17/19 03/27/19 Unknown History [Cholestyramine Light Powder] Insulin Aspart (Nf) [NovoLOG 100 0 unit SQ AC 02/17/19 03/27/19 Unknown History UNITS/ML VIAL] Acetaminophen TAB 650 mg PO Q4H PRN MDD 4 gm 03/27/19 03/27/19 Unknown History Losartan Potassium 50 mg PO DAILY 03/27/19 03/27/19 Unknown History Potassium Chloride 20 mg PO 3XW 03/27/19 03/27/19 Unknown History ED Review of Systems ROS: Stated complaint: LOW BLOOD SUGAR Other details as noted in HPI Comment: Unobtainable due to pts medical conditions Physical Exam - Physical Exam Vital Signs: Vital Signs 04/23/19 12:08 Pulse Rate 74 Respiratory 18 Rate Blood Pressure 137/87 [Left] O2 Sat by Pulse 100 Oximetry Physical Exam: GENERAL: The patient is well-developed well-nourished. HENT: Normocephalic. Atraumatic. Patient has moist mucous membranes. EYES: Extraocular motions are intact. NECK: Supple. Trachea is midline. CHEST/LUNGS: Clear to auscultation. There is no respiratory distress noted. HEART/CARDIOVASCULAR: Regular. There is no tachycardia. There is no murmur. ABDOMEN: Abdomen is soft, nontender. Patient has normal bowel sounds. There is no abdominal distention. SKIN: Skin is warm and dry. NEURO: The patient is awake and cooperative but confused. AAO x2 to person and place but not time. The patient has no focal neurologic deficits. Patient talks very slowly but no aphasia. Cranial nerves II through XII grossly intact. MUSCULOSKELETAL: There is no tenderness or deformity. There is no evidence of acute injury. ED Course Vital Signs 04/23/19 12:08 Pulse Rate 74 Respiratory 18 Rate Blood Pressure 137/87 [Left] O2 Sat by Pulse 100 Oximetry - ABG Interpretation Ph: 7.249 PCO2: 37 PO2: 95 Bicarbonate: 16 Interpretation: metabolic acidosis ED Medical Decision Making - Lab Data Result diagrams: 04/23/19 12:40 04/23/19 12:40 - Radiology Data Radiology results: report reviewed CT head without contrast HISTORY: Altered mental status. TECHNIQUE: Axial imaging performed from the skull apex through the skull base without the use of contrast. All CT scans at this location are performed using CT dose reduction for ALARA by means of automated exposure control. COMPARISON: CT head from 03/26/2019 FINDINGS: Parenchyma: No acute intracranial hemorrhage or parenchymal abnormality. Ventricles: There is mild diffuse brain atrophy with commensurate ventricular enlargement which is likely age appropriate. Soft tissues: Mild right parietal scalp soft tissue swelling. Bones: No acute osseous abnormality. Sinuses: Sinuses and mastoid air cells are clear. IMPRESSION: No acute abnormality. - Medical Decision Making This patient presented to the emergency department from dialysis after having some hypoglycemia and some altered mental status. Since being in the emergency department, the patient has remained awake and cooperative but he does display some confusion. He does not have any aphasia or lateralizing deficits but does have a very slow speech in response time to commands. A CT scan of the head without contrast was done that does not show any bleed, shift, mass, ischemia, or any other acute process. The patient has not required any further dextrose or glucose and his blood sugar has remained above 100. Patient's labs showed thrombocytopenia, renal insufficiency consistent with his end-stage renal disease, low bicarb and the patient has a venous acidosis of about 7.21. An ABG was done that once again shows acidosis that appears to be metabolic. Patient presented with some hypothermia. All of this may be related to his end-stage renal disease. However all of this could be secondary to some underlying infection. There was no lactic acidosis. Blood cultures were sent and the patient was started empirically on some Rocephin. The patient has been presented to the admitting hospitalist, Dr. Villasenor, for either admission or further disposition. - Differential Diagnosis Sepsis, hypoglycemia, TIA, CVA Critical Care Time: No Critical care attestation.: If time is entered above; I have spent that time in minutes in the direct care of this critically ill patient, excluding procedure time. ED Disposition Clinical Impression: ESRD on hemodialysis, Metabolic acidosis, Thrombocytopenia Hypothermia Qualifiers: Encounter type: initial encounter Qualified Code(s): T68.XXXA - Hypothermia, initial encounter Disposition: DC-09 OP ADMIT IP TO THIS HOSP Is pt being admited?: Yes Condition: Fair Time of Disposition: 17:54
[2019-04-23 13:13] LABS: Basophils % (Auto) 0.6 % (0.0-1.8); Eosinophils % (Auto) 0.3 % (0.0-4.3); Hemoglobin 11.4 gm/dl (11.8-15.2); Lymphocytes # (Auto) 0.5 K/mm3 (1.2-5.4); Lymphocytes % (Auto) 10.5 % (13.4-35.0); Mean Corpuscular HGB Conc 33 % (32-34); Mean Corpuscular Volume 97 fl (84-94); Monocytes # (Auto) 0.3 K/mm3 (0.0-0.8); Monocytes % (Auto) 6.5 % (0.0-7.3); Red Blood Count 3.61 M/mm3 (3.65-5.03); Red Cell Distribution Width 15.9 % (13.2-15.2)
[2019-04-23 13:18] LABS: Platelet Count 46 K/mm3 (140-440)
[2019-04-23 13:35] LABS: Albumin 3.9 g/dL (3.9-5); Calcium 8.4 mg/dL (8.4-10.2)
--- NOTE | 2019-04-23 14:14 | Cat Scan Report ---
CT head without contrast HISTORY: Altered mental status. TECHNIQUE: Axial imaging performed from the skull apex through the skull base without the use of con trast. All CT scans at this location are performed using CT dose reduction for ALARA by means of aut omated exposure control. COMPARISON: CT head from 03/26/2019 FINDINGS: Parenchyma: No acute intracranial hemorrhage or parenchymal abnormality. Ventricles: There is mild diffuse brain atrophy with commensurate ventricular enlargement which is l ikely age appropriate. Soft tissues: Mild right parietal scalp soft tissue swelling. Bones: No acute osseous abnormality. Sinuses: Sinuses and mastoid air cells are clear. IMPRESSION: No acute abnormality. Signer Name: Rm Connell MD Signed: 04/23/2019 2:09 PM Workstation Name: [id number]
[2019-04-23 17:07] LABS: ABG Base Excess -10.3 mmol/L (-2.0-3.0); ABG HCO3 16.1 mmol/L (20.0-26.0); ABG Methemoglobin 0.8 % (0.0-1.5); ABG Oxygen Saturation 96.8 % (95.0-99.0); ABG PCO2 37.7 mm Hg; ABG PH 7.249 pH Units (7.350-7.450); ABG PO2 95.7 mm Hg (80.0-90.0)
[2019-04-23] MEDS ORDERED: cefTRIAXone/NS 1 GM/50 ML 1 GM/50 ML BAG IV ONE (17:44)
--- NOTE | 2019-04-23 18:08 | History and Physical Report ---
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 Pt is confused and is unable to provide detailed history. Pt history taken from medical record, ED staff. As per staff, the violeta ent presented to his dialysis center for his routine scheduled dialysis today but shortly after completing dialysis the patient became confused. Patient glucose was checked and patient was found to have a glucose of 30. EMS was notified and upon arrival the patient was found to be in distress and transported to [facility] for further care and evaluation. Patient seen and evaluated in the emergency department. Lab and imaging studies reviewed. Patient was found to have end-stage renal disease with concomitant metabolic encephalopathy, and acidosis. Patient placed in observation status and admitted to medical floor for medical stabilization. No reports of fever, chills, CP, palpitations, NVD, productive cough, or recent ill contacts. Nephrology consulted in ED. Past History Past Medical History: diabetes, ESRD, hypertension, other (See HPI) Past Surgical History: Other (Dialysis access) Social history: single, smoking. denies: alcohol abuse Family history: hypertension Medications and Allergies Allergies Allergy/AdvReac Type Severity Reaction Status Date / Time morphine Allergy Unknown Verified 02/17/19 08:48 Home Medications Medication Instructions Recorded Confirmed Last Taken Type Benadryl CAP 25 mg PO Q12H PRN 07/08/17 04/23/19 03/16/18 History Folic Acid 1 mg PO DAILY 07/08/17 04/23/19 06/26/18 06:00 History Lomotil 2.5-0.025 mg Tablet 2.5 mg PO Q6H PRN 07/08/17 04/23/19 03/16/18 History Metoprolol Tartrate 25 mg PO Q12H 07/08/17 04/23/19 06/26/18 06:00 History 25 mg Phoslo 1,334 mg PO TIDWM 07/08/17 04/23/19 06/25/18 21:00 History 667 mg Remeron 15 mg PO QHS 07/08/17 04/23/19 06/25/18 21:00 History 15 mg Synthroid 25 mcg PO QAM 07/08/17 04/23/19 06/26/18 06:00 History 25 mcg Thiamine HCl 100 mg PO DAILY 07/08/17 04/23/19 06/26/18 06:00 History 100 mg l Acidophil/B Lactis/B Longum 1 cap PO BID #0 07/08/17 04/23/19 06/26/18 06:00 History 100 mg Cholestyramine/Aspartame 210 gm PO QDAY 02/17/19 04/23/19 Unknown History [Cholestyramine Light Powder] Acetaminophen TAB 650 mg PO Q4H PRN MDD 4 gm 03/27/19 04/23/19 Unknown History Losartan Potassium 50 mg PO DAILY 03/27/19 04/23/19 Unknown History Insulin Glargine [Lantus VIAL] 22 units SUB-Q QHS 04/23/19 04/23/19 Unknown History Lispro Insulin [HumaLOG] 0 unit SQ ACHS 04/23/19 04/23/19 Unknown History Loperamide [Imodium] 2 mg PO PRN PRN 04/23/19 04/23/19 Unknown History Active Meds: Active Medications Ceftriaxone Sodium (Rocephin/Ns 1 Gm/50 Ml) 1 gm in 50 mls @ 100 mls/hr IV ONCE ONE; Protocol Stop: 04/23/19 18:13 Last Admin: 04/23/19 17:55 Dose: 100 mls/hr Documented by: Review of Systems ROS unobtainable: due to mental status Exam - Constitutional Vitals: Temp Pulse Resp BP Pulse Ox 97.5 F L 66 10 L 131/71 89 04/23/19 17:31 04/23/19 16:01 04/23/19 16:01 04/23/19 16:01 04/23/19 16:01 General appearance: Present: mild distress - EENT Eyes: Present: PERRL ENT: hearing intact, clear oral mucosa - Neck Neck: Present: supple, normal ROM - Respiratory Respiratory effort: normal Respiratory: bilateral: CTA - Cardiovascular Heart Sounds: Present: S1 & S2. Absent: rub, click - Extremities Extremities: pulses symmetrical, No edema Peripheral Pulses: within normal limits - Abdominal General gastrointestinal: Present: soft, non-tender, non-distended, normal bowel sounds Male genitourinary: Present: normal - Integumentary Integumentary: Present: clear, warm, dry - Musculoskeletal Musculoskeletal: gait normal, strength equal bilaterally - Psychiatric Psychiatric: appropriate mood/affect, intact judgment & insight - Neurologic Neurologic: CNII-XII intact, moves all extremities Results - Labs CBC & Chem 7: 04/23/19 12:40 04/23/19 12:40 Labs: Abnormal lab results 04/23/19 04/23/19 04/23/19 Range/Units 12:10 12:30 12:40 RBC 3.61 L (3.65-5.03) M/mm3 Hgb 11.4 L (11.8-15.2) gm/dl Hct 35.0 L (35.5-45.6) % MCV 97 H (84-94) fl RDW 15.9 H (13.2-15.2) % Plt Count 46 L (140-440) K/mm3 Lymph % (Auto) 10.5 L (13.4-35.0) % Lymph # 0.5 L (1.2-5.4) K/mm3 Seg Neutrophils % 82.1 H (40.0-70.0) % ABG pH (7.350-7.450) pH Units ABG pO2 (80.0-90.0) mm Hg ABG HCO3 (20.0-26.0) mmol/L ABG Base Excess (-2.0-3.0) mmol/L ABG Hemoglobin (14.0-18.0) gm/dl VBG pH 7.217 L (7.320-7.420) Oxyhemoglobin (95.0-99.0) % Sodium (137-145) mmol/L Carbon Dioxide (22-30) mmol/L BUN (9-20) mg/dL Creatinine (0.8-1.5) mg/dL Glucose (75-100) mg/dL POC Glucose 127 H (70-105) 04/23/19 04/23/19 04/23/19 Range/Units 12:40 13:58 15:07 RBC (3.65-5.03) M/mm3 Hgb (11.8-15.2) gm/dl Hct (35.5-45.6) % MCV (84-94) fl RDW (13.2-15.2) % Plt Count (140-440) K/mm3 Lymph % (Auto) (13.4-35.0) % Lymph # (1.2-5.4) K/mm3 Seg Neutrophils % (40.0-70.0) % ABG pH (7.350-7.450) pH Units ABG pO2 (80.0-90.0) mm Hg ABG HCO3 (20.0-26.0) mmol/L ABG Base Excess (-2.0-3.0) mmol/L ABG Hemoglobin (14.0-18.0) gm/dl VBG pH (7.320-7.420) Oxyhemoglobin (95.0-99.0) % Sodium 136 L (137-145) mmol/L Carbon Dioxide 15 L (22-30) mmol/L BUN 37 H (9-20) mg/dL Creatinine 6.6 H (0.8-1.5) mg/dL Glucose 115 H (75-100) mg/dL POC Glucose 116 H 109 H (70-105) 04/23/19 Range/Units 16:58 RBC (3.65-5.03) M/mm3 Hgb (11.8-15.2) gm/dl Hct (35.5-45.6) % MCV (84-94) fl RDW (13.2-15.2) % Plt Count (140-440) K/mm3 Lymph % (Auto) (13.4-35.0) % Lymph # (1.2-5.4) K/mm3 Seg Neutrophils % (40.0-70.0) % ABG pH 7.249 L (7.350-7.450) pH Units ABG pO2 95.7 H (80.0-90.0) mm Hg ABG HCO3 16.1 L (20.0-26.0) mmol/L ABG Base Excess -10.3 L (-2.0-3.0) mmol/L ABG Hemoglobin 11.0 L (14.0-18.0) gm/dl VBG pH (7.320-7.420) Oxyhemoglobin 94.4 L (95.0-99.0) % Sodium (137-145) mmol/L Carbon Dioxide (22-30) mmol/L BUN (9-20) mg/dL Creatinine (0.8-1.5) mg/dL Glucose (75-100) mg/dL POC Glucose (70-105) Assessment and Plan - Patient Problems (1) ESRD (end stage renal disease) Current Visit: Yes Status: Acute Plan to address problem: Nephrology consulted in ED, supportive care, dialysis as per renal team, strict I's/O, daily weight, avoid nephrotoxic agents. (2) Metabolic acidosis Current Visit: Yes Status: Acute Plan to address problem: IV fluid resuscitation therapy as tolerated, BMP, repeat BMP in a.m. (3) Metabolic encephalopathy Current Visit: Yes Status: Acute Plan to address problem: Neuro check, supportive care, Accu-Chek every shift, supportive care, CT head (4) Hypoglycemia Current Visit: Yes Status: Acute Plan to address problem: Serial Accu-Chek, hypoglycemia protocol, supportive care (5) DVT prophylaxis Current Visit: Yes Status: Acute Plan to address problem: SCD to bilateral lower extremities while in bed, prophylactic heparin
[2019-04-23] MEDS ORDERED: ALBUTEROL 2.5 MG/3 ML NEBU IH PRN (18:30)
[2019-04-23] MEDS ORDERED: ONDANSETRON 4 MG/2 ML INJ IV PRN (18:30)
[2019-04-23] MEDS ORDERED: ACETAMINOPHEN 325 MG TAB PO PRN (18:30)
[2019-04-23] MEDS ORDERED: HEPARIN 5,000 UNIT/1 ML VIAL SUB-Q SCH (22:00)
[2019-04-23] MEDS ORDERED: DEXTROSE 50% IN WATER (25GM) 50 ML SYRINGE IV PRN (22:46)
[2019-04-24] MEDS: INSULIN LISPRO 100 UNIT/ML SUB-Q SCH ×4 (01:44→18:19)
[2019-04-24 07:39] LABS: Calcium 7.5 mg/dL (8.4-10.2)
--- NOTE | 2019-04-24 10:40 | Consultation ---
History of Present Illness - Reason for Consult Consult date: 04/24/19 end stage renal disease - History of Present Illness This is a 53 year-old man with ESRD who presents for confusion. Patient usually dialyzes / at [facility]. Last HD 04/23/2019; was doing well throughout treatment but noted to be confused after HD. Denies any recent issues with HD, including dizziness, lightheadedness, cramping, chest pain on HD. Was found to be hypoglycemic in ED. Currently, patient denies any issues including dyspnea, edema, access issues, nausea, vomiting, headaches. Past History Past Medical History: diabetes, ESRD, hypertension, other (See HPI) Past Surgical History: Other (Dialysis access) Social history: single, smoking. denies: alcohol abuse Family history: hypertension Medications and Allergies Allergies Allergy/AdvReac Type Severity Reaction Status Date / Time morphine Allergy Unknown Verified 02/17/19 08:48 Home Medications Medication Instructions Recorded Confirmed Last Taken Type Benadryl CAP 25 mg PO Q12H PRN 07/08/17 04/23/19 03/16/18 History Folic Acid 1 mg PO DAILY 07/08/17 04/23/19 06/26/18 06:00 History Lomotil 2.5-0.025 mg Tablet 2.5 mg PO Q6H PRN 07/08/17 04/23/19 03/16/18 History Metoprolol Tartrate 25 mg PO Q12H 07/08/17 04/23/19 06/26/18 06:00 History 25 mg Phoslo 1,334 mg PO TIDWM 07/08/17 04/23/19 06/25/18 21:00 History 667 mg Remeron 15 mg PO QHS 07/08/17 04/23/19 06/25/18 21:00 History 15 mg Synthroid 25 mcg PO QAM 07/08/17 04/23/19 06/26/18 06:00 History 25 mcg Thiamine HCl 100 mg PO DAILY 07/08/17 04/23/19 06/26/18 06:00 History 100 mg l Acidophil/B Lactis/B Longum 1 cap PO BID #0 07/08/17 04/23/19 06/26/18 06:00 History 100 mg Cholestyramine/Aspartame 210 gm PO QDAY 02/17/19 04/23/19 Unknown History [Cholestyramine Light Powder] Acetaminophen TAB 650 mg PO Q4H PRN MDD 4 gm 03/27/19 04/23/19 Unknown History Losartan Potassium 50 mg PO DAILY 03/27/19 04/23/19 Unknown History Insulin Glargine [Lantus VIAL] 22 units SUB-Q QHS 04/23/19 04/23/19 Unknown History Lispro Insulin [HumaLOG] 0 unit SQ ACHS 04/23/19 04/23/19 Unknown History Loperamide [Imodium] 2 mg PO PRN PRN 04/23/19 04/23/19 Unknown History Active Meds: Active Medications Acetaminophen (Tylenol) 650 mg PO Q4H PRN PRN Reason: Pain MILD(1-3)/Fever >100.5/WONG Albuterol (Proventil) 2.5 mg IH Q4HRT PRN PRN Reason: Shortness Of Breath Dextrose (D50w (25gm) Syringe) 50 ml IV Q30MIN PRN; Protocol PRN Reason: Hypoglycemia Heparin Sodium (Porcine) (Heparin) 5,000 unit SUB-Q Q12HR COUNTS INCLUDE 234 BEDS AT THE [facility] Insulin Human Lispro (Humalog) 0 unit SUB-Q Q6HR COUNTS INCLUDE 234 BEDS AT THE [facility]; Protocol Last Admin: 04/24/19 06:58 Dose: 4 unit Documented by: Ondansetron HCl (Zofran) 4 mg IV Q8H PRN PRN Reason: Nausea And Vomiting Sodium Chloride (Sodium Chloride Flush Syringe 10 Ml) 10 ml IV BID COUNTS INCLUDE 234 BEDS AT THE [facility] Last Admin: 04/23/19 23:51 Dose: 10 ml Documented by: Sodium Chloride (Sodium Chloride Flush Syringe 10 Ml) 10 ml IV PRN PRN PRN Reason: LINE FLUSH Review of Systems All systems: negative (as per HPI) Exam - Vital Signs Vital signs: Vital Signs Pulse Resp BP Pulse Ox 74 18 137/87 100 04/23/19 12:08 04/23/19 12:08 04/23/19 12:08 04/23/19 12:08 - Physical Exam Narrative exam: Constitutional: no acute distress. Sleepy but arousable Head: NC/AT Neck: supple Lungs: clear to auscultation CV: RRR, no M/R/G Abdomen: soft, non-tender, bowel sounds present Back: nontender Extremities: no edema, pulses WNL Skin: intact Neuro: no focal deficits, alert and oriented x4 Results - Lab Results 04/23/19 12:40 04/24/19 06:46 Most recent lab results ABG pH 7.249 pH Units (7.350-7.450) L 04/23/19 16:58 ABG pCO2 37.7 mm Hg 04/23/19 16:58 ABG pO2 95.7 mm Hg (80.0-90.0) H 04/23/19 16:58 ABG HCO3 16.1 mmol/L (20.0-26.0) L 04/23/19 16:58 ABG O2 Saturation 96.8 % (95.0-99.0) 04/23/19 16:58 Calcium 7.5 mg/dL (8.4-10.2) L 04/24/19 06:46 Assessment and Plan This is a 53 year old man who presents with confusion # ESRD: - will continue HD //, due tomorrow. No needs for HD today based on labs, volume. Had HD 04/23/19 - daily labs - renally dose meds - avoid nephrotoxins - renal diet # Metabolic Acidosis: in ESRD; continue HD as above. No need for additional medical therapy unless pH worsens # Anemia: last hemoglobin at goal at 11.4, no ESAs needed # HTN: UF as tolerated. BP reasonable # Secondary Hyperparathyroidism: continue home binders as needed. 3meq Ca bath given hypocalcemia with HD
--- NOTE | 2019-04-24 10:46 | Progress Note ---
Assessment and Plan Assessment and plan: --Acute metabolic acidosis Current Visit: Yes Status: Acute Plan to address problem: IV fluid resuscitation therapy as tolerated, BMP, repeat BMP in a.m. --ESRD (end stage renal disease) Current Visit: Yes Status: Acute Plan to address problem: Nephrology consulted in ED, supportive care, dialysis as per renal team, strict I's/O, daily weight, avoid nephrotoxic agents. --2 diabetes mellitus; Accu-Chek sliding scale coverage ADA diet and insulin as needed --Hypertension; moderate control continue current antihypertensives and PRN medications --Hypothyroidism;Synthroid --Hypoglycemia;im proved Current Visit: Yes Status: Acute Plan to address problem: Serial Accu-Chek, hypoglycemia protocol, supportive care. --DVT prophylaxis Current Visit: Yes Status: Acute Plan to address problem: SCD to bilateral lower extremities while in bed, prophylactic heparin Monitor closely and adjust the management as needed Consults and recommendations noted and appreciated History Interval history: Patient seen and examined medical records reviewed. Patient is alert and awake, slow speech, dementia Probably his baseline Receiving hemodialysis per schedule Mild shortness of breath and fluid overload Vital signs noted Hospitalist Physical - Constitutional Vitals: Temp Pulse Resp BP Pulse Ox 98.7 F 79 17 107/53 97 04/24/19 05:34 04/24/19 05:34 04/24/19 05:34 04/24/19 05:34 04/24/19 05:34 General appearance: Present: mild distress, well-nourished - EENT Eyes: Present: PERRL, EOM intact - Neck Neck: Present: supple, normal ROM - Respiratory Respiratory effort: normal Respiratory: bilateral: diminished, rales, negative: rhonchi, wheezing - Cardiovascular Rhythm: regular Heart Sounds: Present: S1 & S2 - Extremities Extremities: no ischemia Extremity abnormal: edema - Abdominal General gastrointestinal: soft, non-tender, non-distended, normal bowel sounds - Integumentary Integumentary: Present: clear, warm - Psychiatric Psychiatric: appropriate mood/affect, cooperative - Neurologic Neurologic: CNII-XII intact, moves all extremities Results - Labs CBC & Chem 7: 04/23/19 12:40 04/24/19 06:46 Labs: Laboratory Last Values WBC 4.7 K/mm3 (4.5-11.0) 04/23/19 12:40 RBC 3.61 M/mm3 (3.65-5.03) L 04/23/19 12:40 Hgb 11.4 gm/dl (11.8-15.2) L 04/23/19 12:40 Hct 35.0 % (35.5-45.6) L 04/23/19 12:40 MCV 97 fl (84-94) H 04/23/19 12:40 MCH 32 pg (28-32) 04/23/19 12:40 MCHC 33 % (32-34) 04/23/19 12:40 RDW 15.9 % (13.2-15.2) H 04/23/19 12:40 Plt Count 46 K/mm3 (140-440) L 04/23/19 12:40 Lymph % (Auto) 10.5 % (13.4-35.0) L 04/23/19 12:40 [place] % (Auto) 6.5 % (0.0-7.3) 04/23/19 12:40 Eos % (Auto) 0.3 % (0.0-4.3) 04/23/19 12:40 Baso % (Auto) 0.6 % (0.0-1.8) 04/23/19 12:40 Lymph # 0.5 K/mm3 (1.2-5.4) L 04/23/19 12:40 [place] # 0.3 K/mm3 (0.0-0.8) 04/23/19 12:40 Eos # 0.0 K/mm3 (0.0-0.4) 04/23/19 12:40 Baso # 0.0 K/mm3 (0.0-0.1) 04/23/19 12:40 Seg Neutrophils % 82.1 % (40.0-70.0) H 04/23/19 12:40 Seg Neutrophils # 3.9 K/mm3 (1.8-7.7) 04/23/19 12:40 ABG pH 7.249 pH Units (7.350-7.450) L 04/23/19 16:58 ABG pCO2 37.7 mm Hg 04/23/19 16:58 ABG pO2 95.7 mm Hg (80.0-90.0) H 04/23/19 16:58 ABG HCO3 16.1 mmol/L (20.0-26.0) L 04/23/19 16:58 ABG O2 Saturation 96.8 % (95.0-99.0) 04/23/19 16:58 ABG O2 Content 14.8 (0.0-44) 04/23/19 16:58 ABG Base Excess -10.3 mmol/L (-2.0-3.0) L 04/23/19 16:58 ABG Hemoglobin 11.0 gm/dl (14.0-18.0) L 04/23/19 16:58 ABG Carboxyhemoglobin 1.6 % (0.0-5.0) 04/23/19 16:58 ABG Methemoglobin 0.8 % (0.0-1.5) 04/23/19 16:58 VBG pH 7.217 (7.320-7.420) L 04/23/19 12:10 Oxyhemoglobin 94.4 % (95.0-99.0) L 04/23/19 16:58 FiO2 21 % 04/23/19 16:58 Sodium 135 mmol/L (137-145) L 04/24/19 06:46 Potassium 4.3 mmol/L (3.6-5.0) 04/24/19 06:46 Chloride 102.7 mmol/L (98-107) 04/24/19 06:46 Carbon Dioxide 13 mmol/L (22-30) L 04/24/19 06:46 Anion Gap 24 mmol/L 04/24/19 06:46 BUN 55 mg/dL (9-20) H 04/24/19 06:46 Creatinine 7.6 mg/dL (0.8-1.5) H 04/24/19 06:46 Estimated GFR 8 ml/min 04/24/19 06:46 BUN/Creatinine Ratio 7 % 04/24/19 06:46 Glucose 320 mg/dL (75-100) H 04/24/19 06:46 POC Glucose 344 (70-105) H 04/24/19 06:40 Lactic Acid 1.20 mmol/L (0.7-2.0) 04/23/19 17:15 Calcium 7.5 mg/dL (8.4-10.2) L 04/24/19 06:46 Total Bilirubin 0.30 mg/dL (0.1-1.2) 04/23/19 12:40 AST 17 units/L (5-40) 04/23/19 12:40 ALT 19 units/L (7-56) 04/23/19 12:40 Alkaline Phosphatase 107 units/L (35-129) 04/23/19 12:40 Ammonia 44.0 umol/L (25-60) 04/23/19 13:09 Total Protein 6.6 g/dL (6.3-8.2) 04/23/19 12:40 Albumin 3.9 g/dL (3.9-5) 04/23/19 12:40 Albumin/Globulin Ratio 1.4 % 04/23/19 12:40 TSH 3.500 mlU/mL (0.270-4.200) 04/23/19 13:09 Plasma/Serum Alcohol < 0.01 % (0-0.07) 04/23/19 13:09 Active Medications - Current Medications Current Medications: Generic Name Dose Route Start Last Admin Trade Name Freq PRN Reason Stop Dose Admin Acetaminophen 650 mg 04/23/19 18:30 Tylenol PO Q4H PRN Pain MILD(1-3)/Fever >100.5/WONG Albuterol 2.5 mg 04/23/19 18:30 Proventil IH Q4HRT PRN Shortness Of Breath Dextrose 50 ml 04/23/19 22:46 D50w (25gm) Syringe IV Q30MIN PRN Hypoglycemia Protocol Heparin Sodium (Porcine) 5,000 unit 04/23/19 22:00 Heparin SUB-Q Q12HR MAGDALENE Sodium Chloride 100 mls @ 999 mls/hr 04/24/19 10:44 Nacl 0.9% IV RAJEEV PRN Hypotension Insulin Human Lispro 0 unit 04/24/19 00:00 04/24/19 06:58 Humalog SUB-Q 4 unit Q6HR MAGDALENE Administration Protocol Ondansetron HCl 4 mg 04/23/19 18:30 Zofran IV Q8H PRN Nausea And Vomiting Sodium Chloride 10 ml 04/23/19 22:00 04/23/19 23:51 Sodium Chloride Flush Syringe 10 Ml IV 10 ml BID MAGDALENE Administration Sodium Chloride 10 ml 04/23/19 18:30 Sodium Chloride Flush Syringe 10 Ml IV PRN PRN LINE FLUSH
[2019-04-24] MEDS ORDERED: SODIUM CHLORIDE 0.9% 100 ML IV PRN (13:00)
[2019-04-24] MEDS ORDERED: NON-FORMULARY EACH (Metoprolol Tartrate 25 MG) PO SCH (14:15)
[2019-04-24] MEDS ORDERED: CALCIUM ACETATE PO SCH (17:00)
[2019-04-24] MEDS: CALCIUM ACETATE 667 MG CAP PO SCH (18:18)
[2019-04-24 20:10] LABS: Hepatitis B Surface Antigen Non-Reactive (Negative); Hepatitis C Virus Antibody Non-Reactive (NonReactive)
[2019-04-24] MEDS: METOPROLOL TARTRATE 25 MG TAB PO SCH (22:54)
[2019-04-25] MEDS: INSULIN LISPRO 100 UNIT/ML SUB-Q SCH ×4 (00:56→17:52)
[2019-04-25] MEDS: CALCIUM ACETATE 667 MG CAP PO SCH ×3 (09:50→17:40)
[2019-04-25] MEDS: THIAMINE 100 MG TAB PO SCH (09:50)
[2019-04-25] MEDS: FOLIC ACID 1 MG TAB PO SCH (09:51)
[2019-04-25] MEDS: LOSARTAN 50 MG TAB PO SCH (09:56)
[2019-04-25] MEDS: METOPROLOL TARTRATE 25 MG TAB PO SCH ×2 (09:56→22:43)
[2019-04-25] MEDS ORDERED: THIAMINE HCL 100 MG PO SCH (10:00)
[2019-04-25] MEDS ORDERED: FOLIC ACID 1 MG PO SCH (10:00)
[2019-04-25] MEDS ORDERED: NON-FORMULARY EACH (Losartan Potassium 50 MG) PO SCH (10:00)
[2019-04-25] MEDS ORDERED: SYNTHROID 25 MCG PO SCH (10:00)
[2019-04-25] MEDS: LEVOTHYROXINE 25 MCG TAB PO SCH (17:38)
--- NOTE | 2019-04-25 18:44 | Progress Note ---
Assessment and Plan Assessment and plan: --Acute metabolic acidosis Current Visit: Yes Status: Acute Plan to address problem: IV fluid resuscitation therapy as tolerated, BMP, repeat BMP in a.m. --ESRD (end stage renal disease) Current Visit: Yes Status: Acute Plan to address problem: Nephrology consulted in ED, supportive care, dialysis as per renal team, strict I's/O, daily weight, avoid nephrotoxic agents. --Hypoglycemia;im proved Current Visit: Yes Status: Acute Plan to address problem: Serial Accu-Chek, hypoglycemia protocol, supportive care. --Type 2 diabetes mellitus; Accu-Chek sliding scale coverage ADA diet oral hypoglycemics. --Hypertension;Moderate control, continue current antihypertensives and PRN medications. --Hypothyroidism;Synthroid --DVT prophylaxis Current Visit: Yes Status: Acute Plan to address problem: SCD to bilateral lower extremities while in bed, prophylactic heparin History Interval history: Patient seen and examined at his bedside medical records reviewed Patient feels slightly better still has shortness of breath Confused at times, blood sugars reasonable level Alert and awake, altered, probably his baseline Vital signs reviewed Hospitalist Physical - Constitutional Vitals: Temp Pulse Resp BP Pulse Ox 98.0 F 87 18 112/64 100 04/25/19 17:19 04/25/19 17:19 04/25/19 17:19 04/25/19 17:19 04/25/19 17:19 General appearance: Present: mild distress, well-nourished - EENT Eyes: Present: PERRL, EOM intact - Neck Neck: Present: supple, normal ROM - Respiratory Respiratory effort: normal Respiratory: bilateral: diminished, negative: rales, rhonchi, wheezing - Cardiovascular Rhythm: regular Heart Sounds: Present: S1 & S2 - Extremities Extremities: no ischemia, pulses intact - Abdominal General gastrointestinal: soft, non-tender, non-distended, normal bowel sounds - Integumentary Integumentary: Present: clear, warm - Psychiatric Psychiatric: appropriate mood/affect, cooperative - Neurologic Neurologic: CNII-XII intact, moves all extremities Results - Labs CBC & Chem 7: 04/23/19 12:40 04/24/19 06:46 Labs: Laboratory Last Values WBC 4.7 K/mm3 (4.5-11.0) 04/23/19 12:40 RBC 3.61 M/mm3 (3.65-5.03) L 04/23/19 12:40 Hgb 11.4 gm/dl (11.8-15.2) L 04/23/19 12:40 Hct 35.0 % (35.5-45.6) L 04/23/19 12:40 MCV 97 fl (84-94) H 04/23/19 12:40 MCH 32 pg (28-32) 04/23/19 12:40 MCHC 33 % (32-34) 04/23/19 12:40 RDW 15.9 % (13.2-15.2) H 04/23/19 12:40 Plt Count 46 K/mm3 (140-440) L 04/23/19 12:40 Lymph % (Auto) 10.5 % (13.4-35.0) L 04/23/19 12:40 [place] % (Auto) 6.5 % (0.0-7.3) 04/23/19 12:40 Eos % (Auto) 0.3 % (0.0-4.3) 04/23/19 12:40 Baso % (Auto) 0.6 % (0.0-1.8) 04/23/19 12:40 Lymph # 0.5 K/mm3 (1.2-5.4) L 04/23/19 12:40 [place] # 0.3 K/mm3 (0.0-0.8) 04/23/19 12:40 Eos # 0.0 K/mm3 (0.0-0.4) 04/23/19 12:40 Baso # 0.0 K/mm3 (0.0-0.1) 04/23/19 12:40 Seg Neutrophils % 82.1 % (40.0-70.0) H 04/23/19 12:40 Seg Neutrophils # 3.9 K/mm3 (1.8-7.7) 04/23/19 12:40 ABG pH 7.249 pH Units (7.350-7.450) L 04/23/19 16:58 ABG pCO2 37.7 mm Hg 04/23/19 16:58 ABG pO2 95.7 mm Hg (80.0-90.0) H 04/23/19 16:58 ABG HCO3 16.1 mmol/L (20.0-26.0) L 04/23/19 16:58 ABG O2 Saturation 96.8 % (95.0-99.0) 04/23/19 16:58 ABG O2 Content 14.8 (0.0-44) 04/23/19 16:58 ABG Base Excess -10.3 mmol/L (-2.0-3.0) L 04/23/19 16:58 ABG Hemoglobin 11.0 gm/dl (14.0-18.0) L 04/23/19 16:58 ABG Carboxyhemoglobin 1.6 % (0.0-5.0) 04/23/19 16:58 ABG Methemoglobin 0.8 % (0.0-1.5) 04/23/19 16:58 VBG pH 7.217 (7.320-7.420) L 04/23/19 12:10 Oxyhemoglobin 94.4 % (95.0-99.0) L 04/23/19 16:58 FiO2 21 % 04/23/19 16:58 Sodium 135 mmol/L (137-145) L 04/24/19 06:46 Potassium 4.3 mmol/L (3.6-5.0) 04/24/19 06:46 Chloride 102.7 mmol/L (98-107) 04/24/19 06:46 Carbon Dioxide 13 mmol/L (22-30) L 04/24/19 06:46 Anion Gap 24 mmol/L 04/24/19 06:46 BUN 55 mg/dL (9-20) H 04/24/19 06:46 Creatinine 7.6 mg/dL (0.8-1.5) H 04/24/19 06:46 Estimated GFR 8 ml/min 04/24/19 06:46 BUN/Creatinine Ratio 7 % 04/24/19 06:46 Glucose 320 mg/dL (75-100) H 04/24/19 06:46 POC Glucose 100 (70-105) 04/25/19 16:43 Lactic Acid 1.20 mmol/L (0.7-2.0) 04/23/19 17:15 Calcium 7.5 mg/dL (8.4-10.2) L 04/24/19 06:46 Total Bilirubin 0.30 mg/dL (0.1-1.2) 04/23/19 12:40 AST 17 units/L (5-40) 04/23/19 12:40 ALT 19 units/L (7-56) 04/23/19 12:40 Alkaline Phosphatase 107 units/L (35-129) 04/23/19 12:40 Ammonia 44.0 umol/L (25-60) 04/23/19 13:09 Total Protein 6.6 g/dL (6.3-8.2) 04/23/19 12:40 Albumin 3.9 g/dL (3.9-5) 04/23/19 12:40 Albumin/Globulin Ratio 1.4 % 04/23/19 12:40 TSH 3.500 mlU/mL (0.270-4.200) 04/23/19 13:09 Plasma/Serum Alcohol < 0.01 % (0-0.07) 04/23/19 13:09 Hepatitis A IgM Ab Non-reactive (NonReactive) 04/24/19 19:01 Hep Bs Antigen Non-reactive (Negative) 04/24/19 19:01 Hep B Core IgM Ab Non-reactive (NonReactive) 04/24/19 19:01 Hepatitis C Antibody Non-reactive (NonReactive) 04/24/19 19:01 Active Medications - Current Medications Current Medications: Generic Name Dose Route Start Last Admin Trade Name Freq PRN Reason Stop Dose Admin Acetaminophen 650 mg 04/23/19 18:30 Tylenol PO Q4H PRN Pain MILD(1-3)/Fever >100.5/WONG Albuterol 2.5 mg 04/23/19 18:30 Proventil IH Q4HRT PRN Shortness Of Breath Calcium Acetate 1,334 mg 04/24/19 17:00 04/25/19 17:40 Phoslo PO 1,334 mg TIDWM MAGDALENE Administration Dextrose 50 ml 04/23/19 22:46 D50w (25gm) Syringe IV Q30MIN PRN Hypoglycemia Protocol Folic Acid 1 mg 04/25/19 10:00 04/25/19 09:51 Folvite PO 1 mg DAILY MAGDALENE Administration Heparin Sodium (Porcine) 5,000 unit 04/23/19 22:00 Heparin SUB-Q Q12HR MAGDALENE Sodium Chloride 100 mls @ 999 mls/hr 04/24/19 13:00 Nacl 0.9% IV RAJEEV PRN Hypotension Insulin Human Lispro 0 unit 04/24/19 00:00 04/25/19 17:52 Humalog SUB-Q Not Given Q6HR [facility] Protocol Levothyroxine Sodium 25 mcg 04/25/19 06:00 04/25/19 17:38 Synthroid PO Not Given DAILY@0600 [facility] Losartan Potassium 50 mg 04/25/19 10:00 04/25/19 09:56 Cozaar PO Not Given QDAY [facility] Metoprolol Tartrate 25 mg 04/24/19 22:00 04/25/19 09:56 Metoprolol PO Not Given BID [facility] Ondansetron HCl 4 mg 04/23/19 18:30 Zofran IV Q8H PRN Nausea And Vomiting Sodium Chloride 10 ml 04/23/19 22:00 04/25/19 09:56 Sodium Chloride Flush Syringe 10 Ml IV 10 ml BID MAGDALENE Administration Sodium Chloride 10 ml 04/23/19 18:30 Sodium Chloride Flush Syringe 10 Ml IV PRN PRN LINE FLUSH Thiamine HCl 100 mg 04/25/19 10:00 04/25/19 09:50 Vitamin B-1 PO 100 mg QDAY MAGDALENE Administration Nutrition/Malnutrition Assess - Dietary Evaluation Nutrition/Malnutrition Findings: Nutrition Notes Start: 04/24/19 10:34 Freq: Status: Active Protocol: Document 04/24/19 10:34 CC (Rec: 04/24/19 10:47 CC [id number]) Co-Sign 04/24/19 10:34 LP Nutrition Notes 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 Pt reported his appetite has been in hospital and he has consumed 100% of meals. Pt reported he has not had any unitentional wt loss and did not know his UBW. Observed mild muscle wasting at clavicle and deltoid. Burn Absent Trauma Absent GI Symptoms Nausea Food Allergy No Current % PO Good (75-100%) Minimum of two criteria Yes Muscle Mass Mild Depletion (non-severe) Reduced Desktop Support Technician Strength Measurably Reduced (severe) #1 Nutrition Diagnosis Malnutrition Etiology AMS As Evidenced by Signs and Symptoms bilateral weak collect on delivery clerk strength, mild muscle wasting Is patient on ventilator? No Is Patient Ambulatory and/or Out of Bed No REE-([facility]-confined to bed) 9211.635 Calculation Used for Recommendations [facility] Additional Notes Protein: 79-99g/day (1.2-1.5g/ kg) Fluid: per MD Nutrition Intervention Change Diet Order: continue current Goal #1 Meet at least 80% of energy and protein needs via PO intake Anticipated Discharge Needs: renal Follow-Up By: 04/28/19 Additional Comments F/U for PO intakes, possible DM diet education
--- NOTE | 2019-04-25 20:07 | Progress Note ---
Assessment and Plan This is a 53 year old man who presents with confusion # ESRD: - will continue HD //, due today. Tolerating well. - daily labs - renally dose meds - avoid nephrotoxins - renal diet # Metabolic Acidosis: in ESRD; continue HD as above. No need for additional medical therapy unless pH worsens # Anemia: last hemoglobin at goal at 11.4, no ESAs needed # HTN: UF as tolerated. BP reasonable # Secondary Hyperparathyroidism: continue home binders as needed. 3meq Ca bath given hypocalcemia with HD Subjective Date of service: 04/25/19 Interval history: No acute events noted. Seen on HD, tolerating well. No cramping, lightheadedness, dizziness. Denies chest pain, edema. Objective - Exam Narrative Exam: Constitutional: no acute distress. Sleepy but arousable Head: NC/AT Neck: supple Lungs: clear to auscultation CV: RRR, no M/R/G Abdomen: soft, non-tender, bowel sounds present Back: nontender Extremities: no edema, pulses WNL Skin: intact Neuro: no focal deficits, alert and oriented x4 - Vital Signs Vital signs: Vital Signs - 12hr 04/25/19 04/25/19 04/25/19 10:30 10:45 11:00 Temperature 97.7 F Pulse Rate 73 86 88 Respiratory 16 Rate Blood Pressure 117/67 124/69 112/52 O2 Sat by Pulse Oximetry 04/25/19 04/25/19 04/25/19 11:15 11:30 11:45 Temperature Pulse Rate 90 92 H 95 H Respiratory Rate Blood Pressure 122/72 112/50 113/65 O2 Sat by Pulse Oximetry 04/25/19 04/25/19 04/25/19 12:00 12:15 12:30 Temperature Pulse Rate 95 H 64 102 H Respiratory Rate Blood Pressure 117/63 98/52 112/55 O2 Sat by Pulse Oximetry 04/25/19 04/25/19 04/25/19 12:45 13:00 13:15 Temperature Pulse Rate 103 H 100 H 99 H Respiratory Rate Blood Pressure 94/32 109/46 108/42 O2 Sat by Pulse Oximetry 04/25/19 04/25/19 04/25/19 13:30 13:45 17:19 Temperature 98.0 F 98.0 F Pulse Rate 95 H 100 H 87 Respiratory 16 18 Rate Blood Pressure 114/58 127/69 112/64 O2 Sat by Pulse 100 Oximetry - Lab 04/23/19 12:40 04/24/19 06:46 Most recent lab results ABG pH 7.249 pH Units (7.350-7.450) L 04/23/19 16:58 ABG pCO2 37.7 mm Hg 04/23/19 16:58 ABG pO2 95.7 mm Hg (80.0-90.0) H 04/23/19 16:58 ABG HCO3 16.1 mmol/L (20.0-26.0) L 04/23/19 16:58 ABG O2 Saturation 96.8 % (95.0-99.0) 04/23/19 16:58 Calcium 7.5 mg/dL (8.4-10.2) L 04/24/19 06:46 Medications & Allergies - Medications Allergies/Adverse Reactions: Allergies morphine Allergy (Verified 02/17/19 08:48) Unknown Home Medications: Home Medications Medication Instructions Recorded Confirmed Last Taken Type Benadryl CAP 25 mg PO Q12H PRN 07/08/17 04/23/19 03/16/18 History Folic Acid 1 mg PO DAILY 07/08/17 04/23/19 06/26/18 06:00 History Lomotil 2.5-0.025 mg Tablet 2.5 mg PO Q6H PRN 07/08/17 04/23/19 03/16/18 History Metoprolol Tartrate 25 mg PO Q12H 07/08/17 04/23/19 06/26/18 06:00 History 25 mg Phoslo 1,334 mg PO TIDWM 07/08/17 04/23/19 06/25/18 21:00 History 667 mg Remeron 15 mg PO QHS 07/08/17 04/23/19 06/25/18 21:00 History 15 mg Synthroid 25 mcg PO QAM 07/08/17 04/23/19 06/26/18 06:00 History 25 mcg Thiamine HCl 100 mg PO DAILY 07/08/17 04/23/19 06/26/18 06:00 History 100 mg l Acidophil/B Lactis/B Longum 1 cap PO BID #0 07/08/17 04/23/19 06/26/18 06:00 History 100 mg Cholestyramine/Aspartame 210 gm PO QDAY 02/17/19 04/23/19 Unknown History [Cholestyramine Light Powder] Acetaminophen TAB 650 mg PO Q4H PRN MDD 4 gm 03/27/19 04/23/19 Unknown History Losartan Potassium 50 mg PO DAILY 03/27/19 04/23/19 Unknown History Insulin Glargine [Lantus VIAL] 22 units SUB-Q QHS 04/23/19 04/23/19 Unknown History Lispro Insulin [HumaLOG] 0 unit SQ ACHS 04/23/19 04/23/19 Unknown History Loperamide [Imodium] 2 mg PO PRN PRN 04/23/19 04/23/19 Unknown History Active Medications: Generic Name Dose Route Start Last Admin Trade Name Freq PRN Reason Stop Dose Admin Acetaminophen 650 mg 04/23/19 18:30 Tylenol PO Q4H PRN Pain MILD(1-3)/Fever >100.5/WONG Albuterol 2.5 mg 04/23/19 18:30 Proventil IH Q4HRT PRN Shortness Of Breath Calcium Acetate 1,334 mg 04/24/19 17:00 04/25/19 17:40 Phoslo PO 1,334 mg TIDWM MAGDALENE Administration Dextrose 50 ml 04/23/19 22:46 D50w (25gm) Syringe IV Q30MIN PRN Hypoglycemia Protocol Folic Acid 1 mg 04/25/19 10:00 04/25/19 09:51 Folvite PO 1 mg DAILY MAGDALENE Administration Heparin Sodium (Porcine) 5,000 unit 04/23/19 22:00 Heparin SUB-Q Q12HR [facility] Sodium Chloride 100 mls @ 999 mls/hr 04/24/19 13:00 Nacl 0.9% IV RAJEEV PRN Hypotension Insulin Human Lispro 0 unit 04/24/19 00:00 04/25/19 17:52 Humalog SUB-Q Not Given Q6HR [facility] Protocol Levothyroxine Sodium 25 mcg 04/25/19 06:00 04/25/19 17:38 Synthroid PO Not Given DAILY@0600 MAGDALENE Losartan Potassium 50 mg 04/25/19 10:00 04/25/19 09:56 Cozaar PO Not Given QDAY [facility] Metoprolol Tartrate 25 mg 04/24/19 22:00 04/25/19 09:56 Metoprolol PO Not Given BID [facility]ALENE Ondansetron HCl 4 mg 04/23/19 18:30 Zofran IV Q8H PRN Nausea And Vomiting Sodium Chloride 10 ml 04/23/19 22:00 04/25/19 09:56 Sodium Chloride Flush Syringe 10 Ml IV 10 ml BID MAGDALENE Administration Sodium Chloride 10 ml 04/23/19 18:30 Sodium Chloride Flush Syringe 10 Ml IV PRN PRN LINE FLUSH Thiamine HCl 100 mg 04/25/19 10:00 04/25/19 09:50 Vitamin B-1 PO 100 mg QDAY MAGDALENE Administration
[2019-04-26] MEDS: INSULIN LISPRO 100 UNIT/ML SUB-Q SCH ×3 (01:53→12:37)
[2019-04-26] MEDS: LEVOTHYROXINE 25 MCG TAB PO SCH (07:25)
[2019-04-26] MEDS: CALCIUM ACETATE 667 MG CAP PO SCH ×2 (08:35→12:32)
[2019-04-26] MEDS: METOPROLOL TARTRATE 25 MG TAB PO SCH (09:11)
[2019-04-26] MEDS: LOSARTAN 50 MG TAB PO SCH (09:11)
[2019-04-26] MEDS: FOLIC ACID 1 MG TAB PO SCH (09:12)
[2019-04-26] MEDS: THIAMINE 100 MG TAB PO SCH (09:12)
[2019-04-26 13:03] VITALS: BP 127/67
--- NOTE | 2019-04-26 14:23 | Discharge Summary ---
Providers - Providers Date of Admission: 04/23/19 18:30 Date of discharge: 04/26/19 Attending physician: WOLF CHAPMAN 04/23/19 18:30 Consult to Physician [CONS] Routine Comment: Consulting Provider: ALEXIS MONAE Physician Instructions: Reason For Exam: esrd Primary care physician: SCALE OPERATOR Hospitalization Condition: Fair Disposition: DC/[place]-03 [facility] Time spent for discharge: 32 min Core Measure Documentation - Palliative Care Palliative Care/ Comfort Measures: Not Applicable - Core Measures Any of the following diagnoses?: none Exam - Constitutional Vitals: Temp Pulse Resp BP Pulse Ox 97.8 F 65 18 127/67 99 04/26/19 12:09 04/26/19 12:09 04/26/19 12:09 04/26/19 12:09 04/26/19 12:09 General appearance: Present: no acute distress, well-nourished - EENT Eyes: Present: PERRL, EOM intact - Neck Neck: Present: supple, normal ROM - Respiratory Respiratory effort: normal Respiratory: bilateral: diminished, negative: rales, rhonchi, wheezing - Cardiovascular Rhythm: regular Heart Sounds: Present: S1 & S2 - Extremities Extremities: no ischemia, No edema - Abdominal General gastrointestinal: Present: soft, non-tender, non-distended, normal bowel sounds - Integumentary Integumentary: Present: clear, warm - Musculoskeletal Musculoskeletal: strength equal bilaterally, generalized weakness - Psychiatric Psychiatric: appropriate mood/affect, other (Confused at times) - Neurologic Neurologic: CNII-XII intact, moves all extremities Plan Activity: advance as tolerated, fall precautions Diet: diabetic, renal Additional Instructions: Follow renal/HD per schedule. Fall precautions. Patient has blood sugars in the lower range. Resume insulin only if the blood sugars are high Follow up with: SRAVANTHI GRIDER MD [Primary Care Provider] - 3-5 Days LEO MORENO MD [Staff Physician] - 7 Days
--- NOTE | 2019-04-26 16:18 | Progress Note ---
Assessment and Plan This is a 53 year old man who presents with confusion # ESRD: - will continue HD //, due 04/28, no need for HD today based on volume/labs - daily labs - renally dose meds - avoid nephrotoxins - renal diet # Metabolic Acidosis: in ESRD; continue HD as above. # Anemia: last hemoglobin at goal at 11.4, no ESAs needed # HTN: UF as tolerated. BP reasonable # Secondary Hyperparathyroidism: continue home binders as needed. 3meq Ca bath given hypocalcemia with HD Subjective Date of service: 04/26/19 Interval history: No acute events noted. Tolerated full HD yesterday, no cramping, lightheadedness, dizziness. Currently denies chest pain, edema. Objective - Exam Narrative Exam: Constitutional: no acute distress. Sleepy but arousable Head: NC/AT Neck: supple Lungs: clear to auscultation CV: RRR, no M/R/G Abdomen: soft, non-tender, bowel sounds present Back: nontender Extremities: no edema, pulses WNL Skin: intact Neuro: no focal deficits, alert and oriented x4 - Vital Signs Vital signs: Vital Signs - 12hr 04/26/19 04/26/19 09:11 12:09 Temperature 97.8 F Pulse Rate 76 65 Respiratory 18 Rate Blood Pressure 115/67 127/67 O2 Sat by Pulse 99 Oximetry - Lab 04/23/19 12:40 04/24/19 06:46 Most recent lab results ABG pH 7.249 pH Units (7.350-7.450) L 04/23/19 16:58 ABG pCO2 37.7 mm Hg 04/23/19 16:58 ABG pO2 95.7 mm Hg (80.0-90.0) H 04/23/19 16:58 ABG HCO3 16.1 mmol/L (20.0-26.0) L 04/23/19 16:58 ABG O2 Saturation 96.8 % (95.0-99.0) 04/23/19 16:58 Calcium 7.5 mg/dL (8.4-10.2) L 04/24/19 06:46 Medications & Allergies - Medications Allergies/Adverse Reactions: Allergies morphine Allergy (Verified 02/17/19 08:48) Unknown Home Medications: Home Medications Medication Instructions Recorded Confirmed Last Taken Type Benadryl CAP 25 mg PO Q12H PRN 07/08/17 04/23/19 03/16/18 History Folic Acid 1 mg PO DAILY 07/08/17 04/23/19 06/26/18 06:00 History Lomotil 2.5-0.025 mg Tablet 2.5 mg PO Q6H PRN 07/08/17 04/23/19 03/16/18 History Metoprolol Tartrate 25 mg PO Q12H 07/08/17 04/23/19 06/26/18 06:00 History 25 mg Phoslo 1,334 mg PO TIDWM 07/08/17 04/23/19 06/25/18 21:00 History 667 mg Remeron 15 mg PO QHS 07/08/17 04/23/19 06/25/18 21:00 History 15 mg Synthroid 25 mcg PO QAM 07/08/17 04/23/19 06/26/18 06:00 History 25 mcg Thiamine HCl 100 mg PO DAILY 07/08/17 04/23/19 06/26/18 06:00 History 100 mg l Acidophil/B Lactis/B Longum 1 cap PO BID #0 07/08/17 04/23/19 06/26/18 06:00 History 100 mg Cholestyramine/Aspartame 210 gm PO QDAY 02/17/19 04/23/19 Unknown History [Cholestyramine Light Powder] Acetaminophen TAB 650 mg PO Q4H PRN MDD 4 gm 03/27/19 04/23/19 Unknown History Losartan Potassium 50 mg PO DAILY 03/27/19 04/23/19 Unknown History Lispro Insulin [HumaLOG] 0 unit SQ ACHS 04/23/19 04/23/19 Unknown History Active Medications: Generic Name Dose Route Start Last Admin Trade Name Freq PRN Reason Stop Dose Admin Acetaminophen 650 mg 04/23/19 18:30 Tylenol PO Q4H PRN Pain MILD(1-3)/Fever >100.5/WONG Albuterol 2.5 mg 04/23/19 18:30 Proventil IH Q4HRT PRN Shortness Of Breath Calcium Acetate 1,334 mg 04/24/19 17:00 04/26/19 12:32 Phoslo PO 1,334 mg TIDWM MAGDALENE Administration Dextrose 50 ml 04/23/19 22:46 04/26/19 05:52 D50w (25gm) Syringe IV 50 ml Q30MIN PRN Administration Hypoglycemia Protocol Folic Acid 1 mg 04/25/19 10:00 04/26/19 09:12 Folvite PO 1 mg DAILY MAGDALENE Administration Heparin Sodium (Porcine) 5,000 unit 04/23/19 22:00 Heparin SUB-Q Q12HR MAGDALENE Sodium Chloride 100 mls @ 999 mls/hr 04/24/19 13:00 Nacl 0.9% IV [id number] PRN Hypotension Insulin Human Lispro 0 unit 04/24/19 00:00 04/26/19 12:37 Humalog SUB-Q 1 unit Q6HR MAGDALENE Administration Protocol Levothyroxine Sodium 25 mcg 04/25/19 06:00 04/26/19 07:25 Synthroid PO 25 mcg DAILY@0600 MAGDALENE Administration Losartan Potassium 50 mg 04/25/19 10:00 04/26/19 09:11 Cozaar PO 50 mg QDAY MAGDALENE Administration Metoprolol Tartrate 25 mg 04/24/19 22:00 04/26/19 09:11 Metoprolol PO 25 mg BID MAGDALENE Administration Ondansetron HCl 4 mg 04/23/19 18:30 Zofran IV Q8H PRN Nausea And Vomiting Sodium Chloride 10 ml 04/23/19 22:00 04/26/19 09:12 Sodium Chloride Flush Syringe 10 Ml IV 10 ml BID MAGDALENE Administration Sodium Chloride 10 ml 04/23/19 18:30 Sodium Chloride Flush Syringe 10 Ml IV PRN PRN LINE FLUSH Thiamine HCl 100 mg 04/25/19 10:00 04/26/19 09:12 Vitamin B-1 PO 100 mg QDAY MAGDALENE Administration
== END 2019-04-26 15:25 | DRG 682 ==
LOC: ED 11:56 → 3A 18:30
PROVIDERS: ADMIT Internal Medicine; ATTEND Internal Medicine
PROC: 4A033R1 Measurement of Arterial Saturation, Peripheral, Percutaneous Approach (ICD-10-PCS; principal; 2019-04-23)
PROC: 5A1D70Z Performance of Urinary Filtration, Intermittent, Less than 6 Hours Per Day (ICD-10-PCS; 2019-04-25)
DX: I12.0 Hypertensive chronic kidney disease with stage 5 chronic kidney disease or end stage renal disease (principal); N18.6 End stage renal disease; E43 Unspecified severe protein-calorie malnutrition; E87.2 Acidosis; N25.81 Secondary hyperparathyroidism of renal origin; D64.9 Anemia, unspecified; E83.51 Hypocalcemia; E11.22 Type 2 diabetes mellitus with diabetic chronic kidney disease; E11.649 Type 2 diabetes mellitus with hypoglycemia without coma; F03.90 Unspecified dementia, unspecified severity, without behavioral disturbance, psychotic disturbance, mood disturbance, and anxiety; D69.6 Thrombocytopenia, unspecified; T68.XXXA Hypothermia, initial encounter; F17.200 Nicotine dependence, unspecified, uncomplicated; Z82.49 Family history of ischemic heart disease and other diseases of the circulatory system; Z88.5 Allergy status to narcotic agent; Z79.899 Other long term (current) drug therapy; Z68.27 Body mass index [BMI] 27.0-27.9, adult; Z99.2 Dependence on renal dialysis
CPT/HCPCS: 36415; 70450; 80048; 80053; 80074; 80320; 82140; 82803; 82805; 82962; 84443; 85025; 87040; 87116; 93005; 93010; G0378; G0480; J0696; J1815

== ENCOUNTER 2019-04-29 12:06 | Outpatient (CLI) | payer MEDICARE ==
--- NOTE | 2019-04-29 16:43 | Cat Scan Report ---
CT ANGIO UPPER EXTREMITY RT INDICATION: N18.6 End stage renal disease. TECHNIQUE: All CT scans at this location are performed using the following dose modulation technique: Automated exposure control. COMPARISON: None available. FINDINGS: The distal right subclavian artery is unremarkable. There is focal noncalcified thrombus within the right axillary vein (seen best on coronal image 22) w hich results in approximately 50% luminal narrowing for approximately 1.5-2 cm. Proximal to this, the re is more focal short segment noncalcified thrombus which results in approximately 50% narrowing (ax ial image 91). There is early/proximal bifurcation of the right brachial artery. There is mild diffuse atherosclerotic narrowing within the mid to distal radial artery. There is also mild atherosclerotic narrowing within the distal right ulnar artery. No vascular occlusion is seen. No soft tissue fluid collections are identified. Musculature appears u nremarkable. IMPRESSION: 1. Short segment areas of nonocclusive thrombus in the right axillary vein results in approximately 5 0% luminal narrowing. 2. There is mild diffuse atherosclerotic narrowing within the mid to distal radial and ulnar arteries . No occlusion or critical/high-grade stenosis is seen. Signer Name: Moe Keen MD Signed: 04/29/2019 4:39 PM Workstation Name: [id number]
== END 2019-04-29 12:07 | disposition home or self-care (01) ==
LOC: CT 12:06
PROVIDERS: ATTEND Surgery Vascular Surgery
DX: I24.0 Acute coronary thrombosis not resulting in myocardial infarction (principal); N18.6 End stage renal disease; I70.8 Atherosclerosis of other arteries
CPT/HCPCS: 73206; Q9967

== ENCOUNTER 2019-06-02 11:55 | Observation (INO) | payer MEDICARE ==
--- NOTE | 2019-06-02 12:54 | XRay Report ---
CHEST 1 VIEW INDICATION: Vas-Cath pulled out of left chest. COMPARISON: 03/26/2019 FINDINGS: Support devices: The left IJ vas catheter has been removed. Heart: Within normal limits. Lungs/Pleura: No acute air space or interstitial disease. No pneumothorax. Additional findings: None. IMPRESSION: Unremarkable AP chest. Signer Name: Jorge Cardoso Jr, MD Signed: 06/02/2019 12:50 PM Workstation Name: [id number]
--- NOTE | 2019-06-02 13:22 | Emergency Department Report ---
HPI - General Chief Complaint: Medical Clearance Time Seen by Provider: 06/02/19 12:21 - HPI HPI: Room 17 The patient is a 53-year-old male present with a chief complaint of Vas-Cath pulled out. Patient states he was being transported to hemodialysis when he arrived at hemodialysis he noticed his Vas-Cath had fallen out. Patient was last dialyzed 05/30/2019. Patient has no complaints ED Past Medical Hx - Past Medical History Previous Medical History?: Yes Hx Hypertension: Yes Hx Diabetes: Yes Hx Renal Disease: Yes Hx Seizures: Yes Hx Dementia: Yes (ALTERED MENTAL STATUS) Hx HIV: (UNKNOWN) Additional medical history: unable to walk due to weak leg muscles - Surgical History Past Surgical History?: No Additional Surgical History: vas cath to right chest wall - Family History Family history: no significant - Social History Smoking Status: Former Smoker Substance Use Type: None - Medications Home Medications: Home Medications Medication Instructions Recorded Confirmed Last Taken Type Benadryl CAP 25 mg PO Q12H PRN 07/08/17 04/23/19 03/16/18 History Folic Acid 1 mg PO DAILY 07/08/17 04/23/19 06/26/18 06:00 History Lomotil 2.5-0.025 mg Tablet 2.5 mg PO Q6H PRN 07/08/17 04/23/19 03/16/18 History Metoprolol Tartrate 25 mg PO Q12H 07/08/17 04/23/19 06/26/18 06:00 History 25 mg Phoslo 1,334 mg PO TIDWM 07/08/17 04/23/19 06/25/18 21:00 History 667 mg Remeron 15 mg PO QHS 07/08/17 04/23/19 06/25/18 21:00 History 15 mg Synthroid 25 mcg PO QAM 07/08/17 04/23/19 06/26/18 06:00 History 25 mcg Thiamine HCl 100 mg PO DAILY 07/08/17 04/23/19 06/26/18 06:00 History 100 mg l Acidophil/B Lactis/B Longum 1 cap PO BID #0 07/08/17 04/23/19 06/26/18 06:00 History 100 mg Cholestyramine/Aspartame 210 gm PO QDAY 02/17/19 04/23/19 Unknown History [Cholestyramine Light Powder] Acetaminophen TAB 650 mg PO Q4H PRN MDD 4 gm 03/27/19 04/23/19 Unknown History Losartan Potassium 50 mg PO DAILY 03/27/19 04/23/19 Unknown History Lispro Insulin [HumaLOG] 0 unit SQ ACHS 04/23/19 04/23/19 Unknown History ED Review of Systems ROS: Stated complaint: PORT FELL OUT Other details as noted in HPI Constitutional: no symptoms reported Respiratory: no symptoms reported Endocrine: no symptoms reported Physical Exam - Physical Exam Vital Signs: Vital Signs 06/02/19 06/02/19 06/02/19 12:14 12:15 12:19 Temperature 97.7 F Pulse Rate 63 Respiratory 16 Rate Blood Pressure Blood Pressure 142/82 [Right] O2 Sat by Pulse 100 100 100 Oximetry 06/02/19 12:30 Temperature Pulse Rate Respiratory Rate Blood Pressure 155/81 Blood Pressure [Right] O2 Sat by Pulse 99 Oximetry Physical Exam: GENERAL: The patient is well-developed well-nourished male lying on stretcher not appearing to be in acute distress. [] HEENT: Normocephalic. Atraumatic. Extraocular motions are intact. Patient has moist mucous membranes. NECK: Supple. Trachea midline CHEST/LUNGS: Clear to auscultation. There is no respiratory distress noted. HEART/CARDIOVASCULAR: Regular. There is no tachycardia. There is no gallop rub or murmur. ABDOMEN: Abdomen is soft, nontender. Patient has normal bowel sounds. There is no abdominal distention. SKIN: There is no active bleeding at the left chest Vas-Cath site. Dressing in place. There is no edema. There is no diaphoresis. NEURO: The patient is awake and alert. The patient is cooperative. MUSCULOSKELETAL: There is no evidence of acute injury. ED Course Vital Signs 06/02/19 06/02/19 06/02/19 12:14 12:15 12:19 Temperature 97.7 F Pulse Rate 63 Respiratory 16 Rate Blood Pressure Blood Pressure 142/82 [Right] O2 Sat by Pulse 100 100 100 Oximetry 06/02/19 12:30 Temperature Pulse Rate Respiratory Rate Blood Pressure 155/81 Blood Pressure [Right] O2 Sat by Pulse 99 Oximetry - Consultations Consultation #1: 06/02/19 14:23 Case briefly discussed with vascular surgeon Dr. Rea 06/02/19 16:37 Nephrology paged 06/02/19 18:[address] Burnett-we will dialyze the patient today ED Medical Decision Making - Lab Data Result diagrams: 06/02/19 13:38 06/02/19 13:38 Laboratory Tests 06/02/19 06/02/19 13:38 13:38 WBC 3.9 L RBC 4.22 Hgb 12.9 Hct 40.4 MCV 96 H MCH 31 MCHC 32 RDW 15.0 Plt Count 42 L Lymph % (Auto) 22.9 Craig % (Auto) 6.7 Eos % (Auto) 3.2 Baso % (Auto) 0.9 Lymph # 0.9 L Craig # 0.3 Eos # 0.1 Baso # 0.0 Add Manual Diff Complete Seg Neutrophils % 66.3 Seg Neutrophils # 2.6 Sodium 131 L Potassium 4.7 Chloride 94.7 L Carbon Dioxide 14 L Anion Gap 27 BUN 73 H Creatinine 8.3 H Estimated GFR 7 BUN/Creatinine Ratio 9 Glucose 147 H Calcium 8.4 - Radiology Data Radiology results: report reviewed (Chest x-ray), image reviewed (Chest x-ray) interpreted by me: Chest x-ray-no focal infiltrates, no pneumothorax Findings [facility] [address] [place] [address] XRay Report Signed Patient: RIDGE HAIR MR#: [id number] 29 : 1965 Acct:[id number] Age/Sex: 53 / M ADM Date: 06/02/19 Loc: ED Attending Dr: Ordering Physician: CHRISTIANO HUNTLEY MD Date of Service: 06/02/19 Procedure(s): XR chest 1V ap Accession Number(s): [id number] cc: CHRISTIANO HUNTLEY MD Fluoro Time In Minutes: CHEST 1 VIEW INDICATION: Vas-Cath pulled out of left chest. COMPARISON: 03/26/2019 FINDINGS: Support devices: The left IJ vas catheter has been removed. Heart: Within normal limits. Lungs/Pleura: No acute air space or interstitial disease. No pneumothorax. Additional findings: None. IMPRESSION: Unremarkable AP chest. Signer Name: Jorge Cardoso Jr, MD Signed: 06/02/2019 12:50 PM Workstation Name: [id number] Transcribed By: TTR Dictated By: JORGE CARDOSO JR, MD Electronically Authenticated By: JORGE CARDOSO JR, MD Signed Date/Time: 06/02/19 1250 DD/ 1249 TD/TT: - Differential Diagnosis Needs dialysis access Critical care attestation.: If time is entered above; I have spent that time in minutes in the direct care of this critically ill patient, excluding procedure time. ED Disposition Clinical Impression: ESRD on hemodialysis Displacement of vascular dialysis catheter Qualifiers: Encounter type: initial encounter Qualified Code(s): T82.42XA - Displacement of vascular dialysis catheter, initial encounter Disposition: OP ADMIT IP TO THIS HOSP Is pt being admited?: Yes Does the pt Need Aspirin: No Condition: Fair Referrals: PRIMARY CARE, [Primary Care Provider] - 3-5 Days Time of Disposition: 18:09 (Hospitalist paged (Dr Machuca))
[2019-06-02 14:58] LABS: Eosinophils % (Auto) 3.2 % (0.0-4.3); Hematocrit 40.4 % (35.5-45.6); Hemoglobin 12.9 gm/dl (11.8-15.2); Lymphocytes % (Auto) 22.9 % (13.4-35.0); Mean Corpuscular HGB Conc 32 % (32-34); Mean Corpuscular Volume 96 fl (84-94); Monocytes % (Auto) 6.7 % (0.0-7.3); Platelet Count 42 K/mm3 (140-440); Red Blood Count 4.22 M/mm3 (3.65-5.03)
[2019-06-02 14:59] LABS: Basophils % (Auto) 0.9 % (0.0-1.8); Eosinophils # (Auto) 0.1 K/mm3 (0.0-0.4); Lymphocytes # (Auto) 0.9 K/mm3 (1.2-5.4); Monocytes # (Auto) 0.3 K/mm3 (0.0-0.8)
[2019-06-02 16:09] LABS: Calcium 8.4 mg/dL (8.4-10.2)
--- NOTE | 2019-06-02 17:18 | Consultation ---
History of Present Illness - Reason for Consult Consult date: 06/02/19 Permacath Placement Requesting physician: CHRISTIANO HUNTLEY - History of Present Illness The patient is a 53 year old male with a history of ESRD who is on hemodialysis through a left internal jugular permacath. He was being transported to dialysis when he realized that his permacath was accidentally dislodged. He was worked up and had labs drawn there revealed that he is acidotic without hyperkalemia however he is in need of replacement of the permacath for dialysis. He has no additional complaints at this time. Past History Past Medical History: CAD, ESRD, hypertension Past Surgical History: Other (Creation of left elevated brachiobasilic arteriovenous fistula, multiple permacath insertions) Medications and Allergies Allergies Allergy/AdvReac Type Severity Reaction Status Date / Time morphine Allergy Unknown Verified 02/17/19 08:48 Home Medications Medication Instructions Recorded Confirmed Last Taken Type Benadryl CAP 25 mg PO Q12H PRN 07/08/17 04/23/19 03/16/18 History Folic Acid 1 mg PO DAILY 07/08/17 04/23/19 06/26/18 06:00 History Lomotil 2.5-0.025 mg Tablet 2.5 mg PO Q6H PRN 07/08/17 04/23/19 03/16/18 History Metoprolol Tartrate 25 mg PO Q12H 07/08/17 04/23/19 06/26/18 06:00 History 25 mg Phoslo 1,334 mg PO TIDWM 07/08/17 04/23/19 06/25/18 21:00 History 667 mg Remeron 15 mg PO QHS 07/08/17 04/23/19 06/25/18 21:00 History 15 mg Synthroid 25 mcg PO QAM 07/08/17 04/23/19 06/26/18 06:00 History 25 mcg Thiamine HCl 100 mg PO DAILY 07/08/17 04/23/19 06/26/18 06:00 History 100 mg l Acidophil/B Lactis/B Longum 1 cap PO BID #0 07/08/17 04/23/19 06/26/18 06:00 History 100 mg Cholestyramine/Aspartame 210 gm PO QDAY 02/17/19 04/23/19 Unknown History [Cholestyramine Light Powder] Acetaminophen TAB 650 mg PO Q4H PRN MDD 4 gm 03/27/19 04/23/19 Unknown History Losartan Potassium 50 mg PO DAILY 03/27/19 04/23/19 Unknown History Lispro Insulin [HumaLOG] 0 unit SQ ACHS 04/23/19 04/23/19 Unknown History Review of Systems All systems: negative Exam - Constitutional Vitals: Temp Pulse Resp BP Pulse Ox 97.7 F 63 16 151/76 100 06/02/19 12:19 06/02/19 12:19 06/02/19 12:19 06/02/19 15:15 06/02/19 15:15 General appearance: Present: no acute distress - EENT Eyes: Present: PERRL - Neck Neck: Present: supple, other (Left neck and chest without overt evidence of infection) - Respiratory Respiratory effort: normal - Extremities Extremities: no ischemia, normal temperature - Abdominal General gastrointestinal: Present: soft, non-tender, non-distended - Rectal Rectal Exam: deferred Results - Labs CBC & Chem 7: 06/02/19 13:38 06/02/19 13:38 Labs: Abnormal lab results 06/02/19 06/02/19 Range/Units 13:38 13:38 WBC 3.9 L (4.5-11.0) K/mm3 MCV 96 H (84-94) fl Plt Count 42 L (140-440) K/mm3 Lymph # 0.9 L (1.2-5.4) K/mm3 Sodium 131 L (137-145) mmol/L Chloride 94.7 L (98-107) mmol/L Carbon Dioxide 14 L (22-30) mmol/L BUN 73 H (9-20) mg/dL Creatinine 8.3 H (0.8-1.5) mg/dL Glucose 147 H (75-100) mg/dL Assessment and Plan The patient is a 53-year-old male who is on hemodialysis through a left internal jugular permacath that was inadvertently dislodged. He is in need of replacement of the permacath. He has been given the risk, benefits, and alternative procedures and has consented to the procedure.
[2019-06-02] MEDS ORDERED: MIDAZOLAM 2 MG/2 ML INJ ONE (17:21)
[2019-06-02] MEDS ORDERED: HEPARIN/NS 5000 UNIT/500ML 500 ML IR ONE (17:21)
[2019-06-02] MEDS ORDERED: HEPARIN 10,000 UNITS/10 ML VIAL ONE (17:21)
[2019-06-02] MEDS ORDERED: LIDOCAINE (2%) 20 MG/1 ML VIAL 20 ML MDV INFILTRATI ONE (17:21)
[2019-06-02] MEDS ORDERED: fentaNYL 100 MCG/2 ML INJ ONE (17:22)
[2019-06-02] MEDS ORDERED: SODIUM CHLORIDE 0.9% 100 ML IV PRN (18:14)
--- NOTE | 2019-06-02 18:53 | Operative Report ---
Operative Report Operative Report: Date of Procedure: 06/02/2019 Pre-operative Diagnosis: Complications of Dialysis Access Post-operative Diagnosis: Same Procedure(s): 1. Diagnostic Central Venogram 2. Angioplasty of Left Innominate Vein and Superior Vena Cava with a 14 x 40 [place] Balloon 3. Placement of 27 cm GlidePath Permacath Over Wire 4. Radiologic Supervision with Interpretation Surgeon: Moris Rea M.D. Developer Designer: None Anesthesia: 2% Lidocaine/Moderate Monitored Sedation EBL: Minimal Counts: Correct Complications: None Condition: Stable Specimen: None Indication: The patient is a 53-year-old male with a history of end-stage renal disease who is on hemodialysis through a left internal jugular permacath. The permacath was inadvertently dislodged and he is in need of replacement. He was given the risk, benefits, and alternative procedures and consented to the procedure. 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 The distal innominate vein drain through the azygos vein which was approximately 10 mm in diameter suggesting a chronic occlusion. After intervention the left innominate vein and superior vena cava were patent with less than 15% residual stenosis in the innominate vein and approximately 20% residual stenosis in the superior vena cava. The permacath was placed with the distal tip in the right atrium. Description of Procedure: The patient was brought to the Attorney and laid in supine position. After a timeout was performed his left neck and chest were prepped and draped in normal sterile fashion. A 0.035 stiff Glidewire was advanced through the exit site on his chest and through the previous permacath tract and into the central venous system. I attempted to advance the wire into the superior vena cava however the wire would not advance. I advanced a 65 cm vertebral catheter over the wire and attempted to manipulate the wire into the superior vena cava however this was unsuccessful and the wire and catheter took a midline course which appeared to advance into the azygos vein. I removed the wire and performed a venogram which revealed the previously described findings of the occlusion of the proximal innominate vein and superior vena cava with the outflow through the azygos vein. I reinserted the Glidewire and after removing the vertebral catheter I advanced a 7 Burmese 23 cm sheath. The sheath was advanced to the level of the occlusion and then with the vertebral catheter and the stiff Glidewire I was able to traverse the occlusion and advanced the wire catheter into the inferior vena cava. I first predilated the occluded veins with an 8 x 40 [place] Balloon. I then performed angioplasty with a 14 x 40 [place] Balloon with a result of less than 15% residual stenosis within the proximal innominate vein and approximately 20% residual stenosis in the superior vena cava. I then removed the 7 Burmese sheath and attempted to advance the 27 cm GlidePath Permacath by Seldinger technique however I was unable to advance the permacath through the venotomy in the internal jugular vein so I dilated the tract with the dilators and then advanced the peel-away sheath. I removed the inner dilator, leaving the wire in place, and then advanced the permacath over the wire. I peeled away the sheath while advancing the permacath and advanced the permacath until the sheath was peeled away. I continued advancing the permacath until the distal tip was in the right atrium and then removed the dilator. I removed the wire and aspirated and flushed both ports. Both ports easily aspirated and flushed and then I primed both ports with the appropriate amount of heparin. I secured the permacath in place with a 2-0 Ethilon and then dressed with a sterile dressing. The final fluoroscopy demonstrated the catheter was in appropriate position without any evidence of pneumothorax. The patient tolerated the procedure well was transported back to the emergency department in stable condition.
[2019-06-02 19:53] LABS: Hepatitis B Surface Antigen Non-Reactive (Negative); Hepatitis C Virus Antibody Non-Reactive (NonReactive)
--- NOTE | 2019-06-02 20:21 | Event Note ---
Date: 06/02/19 Patient admitted in observation status for Vas-Cath placement and hemodialysis. Vas-Cath inserted and hemodialysis being done history and physical dictated Discharge summary dictated
--- NOTE | 2019-06-02 20:26 | Discharge Summary ---
Providers - Providers Date of Admission: 06/02/19 18:16 Date of discharge: 06/02/19 Attending physician: PATTI STEELE 06/02/19 18:17 Consult to Physician [CONS] Urgent Comment: DR YUKO HEROMSILLO W/DR MORENO @[id number] Consulting Provider: LEO MORENO Physician Instructions: Reason For Exam: ESRD Primary care physician: SRAVANTHI GRIDER MD Hospitalization Condition: Fair Hospital course: Patient had Vas-Cath placement Patient had hemodialysis in the observation status Patient to be discharged after hemodialysis Disposition: DC-01 TO HOME OR SELFCARE Core Measure Documentation - Palliative Care Palliative Care/ Comfort Measures: Not Applicable - Core Measures Any of the following diagnoses?: none Exam - Constitutional Vitals: Temp Pulse Resp BP Pulse Ox 98.8 F 91 H 16 99/53 100 06/02/19 18:45 06/02/19 19:45 06/02/19 18:45 06/02/19 19:45 06/02/19 18:30 General appearance: Present: no acute distress, well-nourished - EENT Eyes: Present: PERRL ENT: hearing intact, clear oral mucosa - Neck Neck: Present: supple, normal ROM - Respiratory Respiratory effort: normal Respiratory: bilateral: CTA - Cardiovascular Heart Sounds: Present: S1 & S2. Absent: rub, click - Extremities Extremities: pulses symmetrical, No edema Peripheral Pulses: within normal limits - Abdominal General gastrointestinal: Present: soft, non-tender, non-distended, normal bowel sounds Male genitourinary: Present: normal - Integumentary Integumentary: Present: clear, warm, dry - Musculoskeletal Musculoskeletal: gait normal, strength equal bilaterally - Psychiatric Psychiatric: appropriate mood/affect, intact judgment & insight - Neurologic Neurologic: CNII-XII intact, moves all extremities Plan Activity: no restrictions Diet: renal Follow up with: SRAVANTHI GRIDER MD [Primary Care Provider] - 3-5 Days LEO MORENO MD [Staff Physician] - 7 Days
[2019-06-02] MEDS ORDERED: ATROPINE PO PRN (20:33)
[2019-06-02] MEDS ORDERED: DIPHENOXYLATE PO PRN (20:33)
[2019-06-02] MEDS ORDERED: NON-FORMULARY EACH (Losartan Potassium 50 MG) PO SCH (20:45)
[2019-06-02] MEDS ORDERED: NON-FORMULARY EACH (Metoprolol Tartrate 25 MG) PO SCH (20:45)
[2019-06-02] MEDS ORDERED: DIPHENOXYLATE/ATROPINE TAB PO PRN (20:57)
--- NOTE | 2019-06-02 21:02 | History and Physical Report ---
CHIEF COMPLAINT: Dislodgment of Vascath. HISTORY OF PRESENT ILLNESS: A 53-year-old sent from dialysis for dislodged Vascath. Vascath fell off. The patient is not able to tell why the Vascath fell off. The patient could not be dialyzed and was sent to Emergency Room for Vascath placement. The patient had a Vascath placed by Dr. Rea from the Emergency Room. Dr. Burnett, the distance learning technician asked him to get hemodialysis. PAST MEDICAL HISTORY: Significant for hypertension, diabetes, end-stage renal disease, seizure disorder, dementia, and HIV. Unable to walk due to weak leg muscles. PAST SURGICAL HISTORY: Vascath to the left chest wall. FAMILY HISTORY: No significant family history. SOCIAL HISTORY: Former smoker. CURRENT MEDICATIONS: On the chart. REVIEW OF SYSTEMS: Significant for no shortness of breath, no chest pain, no palpitations. Otherwise, review of systems negative. PHYSICAL EXAMINATION: GENERAL: Middle-aged male, cooperative during examination. The patient underwent hemodialysis. New Vascath placed. VITAL SIGNS: Pulse rate is 78. Blood pressure 154/84, temperature 98, and sats 98%. HEENT: Unremarkable. Pupils are equal and reactive. NECK: Supple, no lymphadenopathy, no thyromegaly. LUNGS: Clear to auscultation and percussion. Good air entry. CARDIOVASCULAR: S1, S2 heard. No gallop, no murmur, no rub. Apical impulse in left fifth intercostal space and midclavicular line. ABDOMEN: Soft and benign. No hepatosplenomegaly. No guarding, no rigidity. Hernial orifices are normal. EXTREMITIES: Good pedal pulses. LABORATORY DATA: White count is 3900, H and H is 12.9 and 40.4, and platelet count is 42. Electrolytes: Sodium is 131, potassium is 4.7, chloride is 94.7, bicarbonate is 14, BUN and creatinine 73 and 8.3. Glucose is 147. Hepatitis profile is nonreactive. ASSESSMENT AND PLAN: 1. Vascath dislodgement. Vascath inserted. 2. End-stage renal disease with needing hemodialysis. The patient is undergoing hemodialysis. 3. Insulin-dependent diabetes, coverage for the time being. 4. Hypertension. Continue losartan and metoprolol. 5. Hypothyroidism. Continue Synthroid. 6. Deep venous thrombosis prophylaxis. No heparin. Only SCDs. JOB# [id number] RENÉ/JACOBY
[2019-06-02 21:24] VITALS: BP 136/79
[2019-06-02] MEDS ORDERED: METOPROLOL TARTRATE 25 MG TAB PO SCH (22:00)
[2019-06-02] MEDS ORDERED: B LONGUM PO SCH (22:00)
[2019-06-02] MEDS ORDERED: ACIDOPHIL PO SCH (22:00)
[2019-06-02] MEDS ORDERED: B LACTIS PO SCH (22:00)
[2019-06-02] MEDS ORDERED: LOSARTAN 50 MG TAB PO SCH (22:00)
[2019-06-03] MEDS ORDERED: LEVOTHYROXINE 25 MCG TAB PO SCH (06:00)
[2019-06-03] MEDS ORDERED: CALCIUM ACETATE PO SCH (08:00)
[2019-06-03] MEDS ORDERED: CALCIUM ACETATE 667 MG CAP PO SCH (08:00)
[2019-06-03] MEDS ORDERED: THIAMINE 100 MG TAB PO SCH (10:00)
[2019-06-03] MEDS ORDERED: SYNTHROID 25 MCG PO SCH (10:00)
[2019-06-03] MEDS ORDERED: THIAMINE HCL 100 MG PO SCH (10:00)
== END 2019-06-03 02:45 | disposition home or self-care (01) ==
LOC: ED 11:55 → 3A 18:16
PROVIDERS: ADMIT Internal Medicine; ATTEND Internal Medicine
DX: T82.42XA Displacement of vascular dialysis catheter, initial encounter (principal); I12.0 Hypertensive chronic kidney disease with stage 5 chronic kidney disease or end stage renal disease; E11.22 Type 2 diabetes mellitus with diabetic chronic kidney disease; N18.6 End stage renal disease; F03.90 Unspecified dementia, unspecified severity, without behavioral disturbance, psychotic disturbance, mood disturbance, and anxiety; G43.909 Migraine, unspecified, not intractable, without status migrainosus; E03.9 Hypothyroidism, unspecified; Z87.891 Personal history of nicotine dependence; Z99.2 Dependence on renal dialysis; Z79.4 Long term (current) use of insulin; Z79.899 Other long term (current) drug therapy
CPT/HCPCS: 36415; 36558; 37248; 71045; 77001; 80048; 80074; 85025; 99284; C1725; C1750; C1769; C1894; G0257; G0378; J1644; J2250; J3010; 96374; Q9967

== ENCOUNTER 2019-06-27 04:54 | Emergency (ER) | payer MEDICARE ==
[2019-06-27] MEDS ORDERED: DEXTROSE 50% IN WATER (25GM) 50 ML SYRINGE IV ONE ×2 (06:17→06:32)
--- NOTE | 2019-06-27 06:25 | Emergency Department Report ---
HPI - General Chief Complaint: Hypoglycemia Time Seen by Provider: 06/27/19 06:15 - HPI HPI: Room 19 The patient is a 53-year-old male present with a chief complaint of hyperglycemia. Per EMS they received a call for altered mental status and found the patient at his correction diaphoretic unresponsive and cyanotic with agonal breathing. An Accu-Chek revealed the patient was hypoglycemic with a glucose of 21. EMS administered dextrose blood sugar increased to 60. Patient is now alert and denies complaints. ED Past Medical Hx - Past Medical History Hx Hypertension: Yes Hx Diabetes: Yes Hx Arthritis: Yes Hx Dementia: Yes (AMS) Hx HIV: (UNKNOWN) Additional medical history: unable to walk due to weak leg muscles - Surgical History Additional Surgical History: vas cath to right chest wall - Family History Family history: no significant - Social History Smoking Status: Unknown if ever smoked Substance Use Type: None - Medications Home Medications: Home Medications Medication Instructions Recorded Confirmed Last Taken Type Benadryl CAP 25 mg PO Q12H PRN 07/08/17 06/12/19 06/07/19 21:00 History Folic Acid 1 mg PO DAILY 07/08/17 06/12/19 06/07/19 09:00 History Lomotil 2.5-0.025 mg Tablet 2.5 mg PO Q6H PRN 07/08/17 06/11/19 06/07/19 09:00 History Metoprolol Tartrate 25 mg PO Q12H 07/08/17 06/12/19 06/07/19 17:00 History Phoslo 1 tab PO Q6H 07/08/17 06/12/19 06/07/19 17:00 History Remeron 15 mg PO QHS 07/08/17 06/12/19 06/08/19 History Synthroid 25 mcg PO QAM 07/08/17 06/12/19 06/07/19 09:00 History Thiamine HCl 100 mg PO DAILY 07/08/17 06/12/19 06/07/19 09:00 History l Acidophil/B Lactis/B Longum 1 cap PO BID PRN #0 07/08/17 06/12/19 06/07/19 17:00 History Cholestyramine/Aspartame 1 packet PO QDAY 02/17/19 06/12/19 06/07/19 09:00 History [Cholestyramine Light Powder] Acetaminophen TAB 650 mg PO Q4H PRN MDD 4 gm 03/27/19 06/11/19 06/07/19 09:00 History Losartan Potassium 50 mg PO DAILY 03/27/19 06/12/19 06/07/19 09:00 History oxyCODONE /ACETAMINOPHEN [Percocet 1 tab PO Q6HR PRN #24 tablet 06/08/19 06/11/19 Unknown Rx 5/325 mg] Glucagon (Human Recomb) [Glucagen] 1 mg IM Q24H 06/11/19 06/11/19 Unknown History Insulin Glargine,Hum.rec.anlog 36 unit SQ HS 06/11/19 06/11/19 Unknown History [Basaglar Kwikpen U-100] Insulin Lispro [Humalog 100 0 units SQ AC 06/11/19 06/11/19 Unknown History UNITS/ML Kwikpen] Lispro Insulin [HumaLOG] 0 unit SUB-Q ACHS units 06/12/19 Unknown Rx oxyCODONE /ACETAMINOPHEN [Percocet 1 tab PO Q6HR PRN #20 tablet 06/12/19 Unknown Rx 5/325] ED Review of Systems ROS: Stated complaint: LOW BLOOD SUGAR Other details as noted in HPI Constitutional: no symptoms reported Respiratory: no symptoms reported Endocrine: no symptoms reported Physical Exam - Physical Exam Vital Signs: Vital Signs 06/27/19 06/27/19 05:26 05:28 Temperature 97.5 F L 97.5 F L Pulse Rate 73 73 Respiratory 20 20 Rate Blood Pressure 94/50 Blood Pressure 94/50 [Left] O2 Sat by Pulse 97 97 Oximetry Physical Exam: GENERAL: The patient is well-developed well-nourished male sitting on stretcher not appearing to be in acute distress. [] HEENT: Normocephalic. Atraumatic. Extraocular motions are intact. Patient has moist mucous membranes. NECK: Trachea midline CHEST/LUNGS: Clear to auscultation. There is no respiratory distress noted. HEART/CARDIOVASCULAR: Regular. There is no tachycardia. There is no gallop rub or murmur. ABDOMEN: Abdomen is soft, nontender. Patient has normal bowel sounds. There is no abdominal distention. SKIN: There is no diaphoresis. NEURO: The patient is awake and alert. The patient is cooperative. MUSCULOSKELETAL: There is no evidence of acute injury. ED Course Vital Signs 06/27/19 06/27/19 05:26 05:28 Temperature 97.5 F L 97.5 F L Pulse Rate 73 73 Respiratory 20 20 Rate Blood Pressure 94/50 Blood Pressure 94/50 [Left] O2 Sat by Pulse 97 97 Oximetry ED Medical Decision Making - Lab Data Result diagrams: 06/27/19 06:31 06/27/19 06:31 Laboratory Tests 06/27/19 06/27/19 06/27/19 05:13 06:26 06:31 WBC 6.8 RBC 3.36 L Hgb 10.0 L Hct 31.9 L MCV 95 H MCH 30 MCHC 31 L RDW 14.5 Plt Count 55 L Lymph % (Auto) 6.9 L [place] % (Auto) 6.8 Eos % (Auto) 1.1 Baso % (Auto) 0.8 Lymph # 0.5 L [place] # 0.5 Eos # 0.1 Baso # 0.1 Seg Neutrophils % 84.4 H Seg Neutrophils # 5.7 Sodium Potassium Chloride Carbon Dioxide Anion Gap BUN Creatinine Estimated GFR BUN/Creatinine Ratio Glucose POC Glucose 79 49 L Calcium 06/27/19 06/27/19 06/27/19 06:31 07:06 07:47 WBC RBC Hgb Hct MCV MCH MCHC RDW Plt Count Lymph % (Auto) [place] % (Auto) Eos % (Auto) Baso % (Auto) Lymph # [place] # Eos # Baso # Seg Neutrophils % Seg Neutrophils # Sodium 137 Potassium 4.3 Chloride 103.7 Carbon Dioxide 19 L Anion Gap 19 BUN 37 H Creatinine 5.5 H Estimated GFR 11 BUN/Creatinine Ratio 7 Glucose 132 H POC Glucose 160 H 193 H Calcium 8.5 06/27/19 06/27/19 08:19 09:16 WBC RBC Hgb Hct MCV MCH MCHC RDW Plt Count Lymph % (Auto) [place] % (Auto) Eos % (Auto) Baso % (Auto) Lymph # [place] # Eos # Baso # Seg Neutrophils % Seg Neutrophils # Sodium Potassium Chloride Carbon Dioxide Anion Gap BUN Creatinine Estimated GFR BUN/Creatinine Ratio Glucose POC Glucose 198 H 200 H Calcium - Differential Diagnosis Hypoglycemia Critical care attestation.: If time is entered above; I have spent that time in minutes in the direct care of this critically ill patient, excluding procedure time. ED Disposition Clinical Impression: Hypoglycemia Disposition: [id number]/TX-[id number] ANOTHER TYPE HLTHCARE Is pt being admited?: No Does the pt Need Aspirin: No Condition: Stable Instructions: Diabetic Hypoglycemia (ED) Additional Instructions: Return to the emergency department should you develop worsening symptoms, inability to tolerate food or liquids, high fever or any other concerns Time of Disposition: 09:12
[2019-06-27 06:49] LABS: Basophils # (Auto) 0.1 K/mm3 (0.0-0.1); Basophils % (Auto) 0.8 % (0.0-1.8); Eosinophils # (Auto) 0.1 K/mm3 (0.0-0.4); Eosinophils % (Auto) 1.1 % (0.0-4.3); Hematocrit 31.9 % (35.5-45.6); Lymphocytes # (Auto) 0.5 K/mm3 (1.2-5.4); Lymphocytes % (Auto) 6.9 % (13.4-35.0); Mean Corpuscular HGB Conc 31 % (32-34); Mean Corpuscular Volume 95 fl (84-94); Monocytes # (Auto) 0.5 K/mm3 (0.0-0.8); Monocytes % (Auto) 6.8 % (0.0-7.3); Red Blood Count 3.36 M/mm3 (3.65-5.03); Red Cell Distribution Width 14.5 % (13.2-15.2)
[2019-06-27 06:50] LABS: Platelet Count 55 K/mm3 (140-440)
[2019-06-27 07:09] LABS: Calcium 8.5 mg/dL (8.4-10.2)
[2019-06-27] MEDS ORDERED: cloNIDine 0.2 MG TAB PO ONE (09:40)
[2019-06-27 10:59] VITALS: BP 146/56
== END 2019-06-27 11:00 | disposition other institution (70) ==
LOC: ED 04:54
DX: E11.65 Type 2 diabetes mellitus with hyperglycemia (principal); I10 Essential (primary) hypertension; M19.90 Unspecified osteoarthritis, unspecified site; Z79.899 Other long term (current) drug therapy; Z88.6 Allergy status to analgesic agent
CPT/HCPCS: 36415; 80048; 82962; 85025; 96374

== ENCOUNTER 2019-08-04 12:31 | Inpatient (IN) | payer MEDICARE ==
--- NOTE | 2019-08-04 13:03 | Emergency Department Report ---
ED General Adult HPI - General Chief complaint: Upper Respiratory Infection Stated complaint: POSS COVID-19 PUI?: Yes Time Seen by Provider: 08/04/19 12:38 Source: patient, EMS ( EMS documentation not available at time of chart dictation ), RN notes reviewed, old records reviewed Mode of arrival: Stretcher Limitations: Altered Mental Status - History of Present Illness Initial comments: Nephrology: Dr. Epstein Patient is a 53-year-old gentleman, with a history of hypertension, diabetes, dementia, end-stage renal disease on hemodialysis, currently a resident in a half-way, has a history of closed left hip fracture, diagnosed last month, presenting to the ER with EMS with a complaint of shortness of breath, cough, chest tightness and weakness. The patient was apparently an outpatient hemodialysis, and they sent the patient here to rule out COVID. During the entire history and physical examination, I had on complete personal protective equipment. The patient is a poor historian, but complains of shortness of breath, malaise, weakness, nonspecific chest discomfort. He has difficulty describing duration of symptoms, qualitative nature of his symptoms, exacerbating or relieving factors, or radiation of symptoms. At the moment, he is not accompanied by friends or family at this time who can provide collateral information. -: days(s) Location: chest Quality: other Consistency: other Improves with: other Worsens with: other Associated Symptoms: other - Related Data Home Medications Medication Instructions Recorded Confirmed Last Taken Benadryl CAP 25 mg PO Q12H PRN 07/08/17 08/04/19 06/07/19 21:00 Folic Acid 1 mg PO DAILY 07/08/17 08/04/19 06/07/19 09:00 Lomotil 2.5-0.025 mg Tablet 2.5 mg PO Q6H PRN 07/08/17 08/04/19 06/07/19 09:00 Metoprolol Tartrate 25 mg PO Q12H 07/08/17 08/04/19 06/07/19 17:00 Phoslo 1 tab PO Q6H 07/08/17 08/04/19 06/07/19 17:00 Remeron 15 mg PO QHS 07/08/17 08/04/19 06/08/19 Synthroid 25 mcg PO QAM 07/08/17 08/04/19 06/07/19 09:00 Thiamine HCl 100 mg PO DAILY 07/08/17 08/04/19 06/07/19 09:00 l Acidophil/B Lactis/B Longum 1 cap PO BID PRN #0 07/08/17 08/04/19 06/07/19 17:00 Cholestyramine/Aspartame 1 packet PO QDAY 02/17/19 08/04/19 06/07/19 09:00 [Cholestyramine Light Powder] Acetaminophen TAB 650 mg PO Q4H PRN MDD 4 gm 03/27/19 08/04/19 06/07/19 09:00 Losartan Potassium 50 mg PO DAILY 03/27/19 08/04/19 06/07/19 09:00 Glucagon (Human Recomb) [Glucagen] 1 mg IM Q24H 06/11/19 08/04/19 Unknown Insulin Glargine,Hum.rec.anlog 36 unit SQ HS 06/11/19 08/04/19 Unknown [Basaglar Kwikpen U-100] Insulin Lispro [Humalog 100 0 units SQ AC 06/11/19 08/04/19 Unknown UNITS/ML Kwikpen] Previous Rx's Medication Instructions Recorded Last Taken Type oxyCODONE /ACETAMINOPHEN [Percocet 1 tab PO Q6HR PRN #24 tablet 06/08/19 Unknown Rx 5/325 mg] Lispro Insulin [HumaLOG] 0 unit SUB-Q ACHS units 06/12/19 Unknown Rx oxyCODONE /ACETAMINOPHEN [Percocet 1 tab PO Q6HR PRN #20 tablet 06/12/19 Unknown Rx 5/325] Allergies Allergy/AdvReac Type Severity Reaction Status Date / Time morphine Allergy Unknown Verified 06/05/19 12:17 ED Review of Systems ROS: Stated complaint: POSS COVID-19 Other details as noted in HPI Comment: Unobtainable due to pts medical conditions Constitutional: malaise. denies: fever Respiratory: shortness of breath Cardiovascular: chest pain Gastrointestinal: denies: abdominal pain Genitourinary: as per HPI Musculoskeletal: as per HPI Skin: as per HPI Neurological: as per HPI Psychiatric: as per HPI Hematological/Lymphatic: as per HPI ED Past Medical Hx - Past Medical History Hx Hypertension: Yes Hx Heart Attack/AMI: No Hx Congestive Heart Failure: No Hx Diabetes: Yes Hx Deep Vein Thrombosis: No Hx Pulmonary Embolism: No Hx Liver Disease: No Hx Renal Disease: No Hx Sickle Cell Disease: No Hx Arthritis: Yes Hx Seizures: No Hx Kidney Stones: No Hx Asthma: No Hx COPD: No Hx Tuberculosis: No Hx Dementia: Yes (AMS) Hx HIV: (UNKNOWN) Additional medical history: unable to walk due to weak leg muscles - Surgical History Hx Coronary Stent: No Hx Open Heart Surgery: No Hx Pacemaker: No Hx Internal Defibrillator: No Hx Breast Surgery: No Additional Surgical History: vas cath to right chest wall - Social History Smoking Status: Never Smoker - Medications Home Medications: Home Medications Medication Instructions Recorded Confirmed Last Taken Type Benadryl CAP 25 mg PO Q12H PRN 07/08/17 08/04/19 06/07/19 21:00 History Folic Acid 1 mg PO DAILY 07/08/17 08/04/19 06/07/19 09:00 History Lomotil 2.5-0.025 mg Tablet 2.5 mg PO Q6H PRN 07/08/17 08/04/19 06/07/19 09:00 History Metoprolol Tartrate 25 mg PO Q12H 07/08/17 08/04/19 06/07/19 17:00 History Phoslo 1 tab PO Q6H 07/08/17 08/04/19 06/07/19 17:00 History Remeron 15 mg PO QHS 07/08/17 08/04/19 06/08/19 History Synthroid 25 mcg PO QAM 07/08/17 08/04/19 06/07/19 09:00 History Thiamine HCl 100 mg PO DAILY 07/08/17 08/04/19 06/07/19 09:00 History l Acidophil/B Lactis/B Longum 1 cap PO BID PRN #0 07/08/17 08/04/19 06/07/19 17:00 History Cholestyramine/Aspartame 1 packet PO QDAY 02/17/19 08/04/19 06/07/19 09:00 History [Cholestyramine Light Powder] Acetaminophen TAB 650 mg PO Q4H PRN MDD 4 gm 03/27/19 08/04/19 06/07/19 09:00 History Losartan Potassium 50 mg PO DAILY 03/27/19 08/04/19 06/07/19 09:00 History oxyCODONE /ACETAMINOPHEN [Percocet 1 tab PO Q6HR PRN #24 tablet 06/08/19 08/04/19 Unknown Rx 5/325 mg] Glucagon (Human Recomb) [Glucagen] 1 mg IM Q24H 06/11/19 08/04/19 Unknown History Insulin Glargine,Hum.rec.anlog 36 unit SQ HS 06/11/19 08/04/19 Unknown History [Basaglar Kwikpen U-100] Insulin Lispro [Humalog 100 0 units SQ AC 06/11/19 08/04/19 Unknown History UNITS/ML Kwikpen] Lispro Insulin [HumaLOG] 0 unit SUB-Q ACHS units 06/12/19 08/04/19 Unknown Rx oxyCODONE /ACETAMINOPHEN [Percocet 1 tab PO Q6HR PRN #20 tablet 06/12/19 08/04/19 Unknown Rx 5/325] ED Physical Exam - General Limitations: Physical Limitation, Other (Patient is a poor historian) General appearance: anxious, in distress - Head Head exam: Present: atraumatic, normocephalic - Eye Eye exam: Present: normal appearance - ENT ENT exam: Present: normal exam, mucous membranes moist, normal external ear exam - Neck Neck exam: Present: normal inspection, full ROM. Absent: tenderness, meni ngismus - Respiratory Respiratory exam: Present: respiratory distress, rales, accessory muscle use. Absent: stridor - Cardiovascular Cardiovascular Exam: Present: regular rate, normal rhythm, normal heart sounds. Absent: tachycardia, irregular rhythm, systolic murmur, diastolic murmur, rubs, gallop - GI/Abdominal GI/Abdominal exam: Present: soft. Absent: distended, tenderness, guarding, rebound, rigid, pulsatile mass - Rectal Rectal exam: Present: deferred - Extremities Exam Extremities exam: Present: normal inspection, full ROM, other (2+ pulses noted in the bilateral upper and lower extremities. There is no palpable cord. negative Homans sign. Muscular compartments are soft. The pelvis is stable.). Absent: pedal edema, calf tenderness - Back Exam Back exam: Present: normal inspection, full ROM. Absent: tenderness, CVA tenderness (R), CVA tenderness (L), paraspinal tenderness, vertebral tenderness - Neurological Exam Neurological exam: Present: alert, other (No facial droop. Tongue midline. Extraocular movements intact bilaterally. Facial sensation intact to light touch in V1, V2, V3 distribution bilaterally. 5 and a 5 strength in 4 extremities. Sensation intact to light touch in 4 extremities.). Absent: motor sensory deficit - Psychiatric Psychiatric exam: Present: anxious - Skin Skin exam: Present: warm, dry, intact, normal color, other (There is a left- sided vascular access catheter noted in the left thorax, without redness, pus or streaking). Absent: rash ED Course Vital Signs 08/04/19 13:04 Temperature 98.4 F Pulse Rate 57 L Respiratory 15 Rate Blood Pressure 107/35 [Left] O2 Sat by Pulse 97 Oximetry - Reevaluation(s) Reevaluation #1: 08/04/19 13:36 Differential diagnosis, including but not limited to: Pneumonia, bacterial versus viral, fluid overload, electrolyte derangement, acute coronary syndrome, pulmonary embolism Assessment and plan: 53-year-old gentleman with market tachypnea, who appears uncomfortable, with nonspecific shortness of breath, chest tightness, malaise, fatigue and weakness. X-ray of the chest shows left upper lobe infiltrate. Suspicious for pneumonia. Patient will be placed on isolation precautions. I think a pulmonary embolism is unlikely at this time, given obvious x-ray chest findings. He will be placed on isolation precautions for both tuberculosis, and COVID. We will send screening laboratory studies to assess for impending cytokine storm. He will be treated with ceftriaxone and azithromycin, sputum cultures will be requested. Blood cultures will be requested. I have discussed the case with his covering color separation photographer, Dr. Burnett, whose group will follow in consultation. We will admit once initial diagnostics have resulted. 08/04/19 13:38 Reevaluation #2: 08/04/19 14:20 Case is presented to hospital physician, Dr. Villasenor, who has accepted the patient to the medical service Reevaluation #3: 08/04/19 15:00 Elevated troponin is reviewed and appreciated, suspect type II troponin leak. Elevated d-dimer likely secondary to inflammatory process, likely secondary to left upper lobe pneumonia. Given the current radiographic and laboratory data, pneumonia is my chief diagnosis, I think a pulmonary embolism is less likely at this time. We will defer to the inpatient team for further management. ED Medical Decision Making - Lab Data Result diagrams: 08/04/19 13:36 08/04/19 13:36 Vital Signs - 24 hr 08/04/19 13:04 Temperature 98.4 F Pulse Rate 57 L Respiratory 15 Rate Blood Pressure 107/35 [Left] O2 Sat by Pulse 97 Oximetry Labs 08/04/19 13:36 WBC 17.4 H RBC 4.05 Hgb 10.6 L Hct 35.1 L MCV 87 MCH 26 L MCHC 30 L RDW 16.0 H Seg Neutrophils % Chair Trimmer Vital Signs 08/04/19 13:04 Temperature 98.4 F Pulse Rate 57 L Respiratory 15 Rate Blood Pressure 107/35 [Left] O2 Sat by Pulse 97 Oximetry Lab Results 08/04/19 08/04/19 08/04/19 Range/Units 13:36 13:36 13:36 WBC 17.4 H (4.5-11.0) K/mm3 RBC 4.05 (3.65-5.03) M/mm3 Hgb 10.6 L (11.8-15.2) gm/dl Hct 35.1 L (35.5-45.6) % MCV 87 (84-94) fl MCH 26 L (28-32) pg MCHC 30 L (32-34) % RDW 16.0 H (13.2-15.2) % Plt Count 94 L (140-440) K/mm3 Add Manual Diff Complete Total Counted 100 Seg Neutrophils % Chair Trimmer Seg Neuts % (Manual) 87.0 H (40.0-70.0) % Band Neutrophils % 1.0 % Lymphocytes % (Manual) 8.0 L (13.4-35.0) % Reactive Lymphs % (Man) 0 % Monocytes % (Manual) 2.0 (0.0-7.3) % Eosinophils % (Manual) 2.0 (0.0-4.3) % Basophils % (Manual) 0 (0.0-1.8) % Metamyelocytes % 0 % Myelocytes % 0 % Promyelocytes % 0 % Blast Cells % 0 % Nucleated RBC % Not Reportable Seg Neutrophils # Man 15.1 H (1.8-7.7) K/mm3 Band Neutrophils # 0.2 K/mm3 Lymphocytes # (Manual) 1.4 (1.2-5.4) K/mm3 Abs React Lymphs (Man) 0.0 K/mm3 Monocytes # (Manual) 0.3 (0.0-0.8) K/mm3 Eosinophils # (Manual) 0.3 (0.0-0.4) K/mm3 Basophils # (Manual) 0.0 (0.0-0.1) K/mm3 Metamyelocytes # 0.0 K/mm3 Myelocytes # 0.0 K/mm3 Promyelocytes # 0.0 K/mm3 Blast Cells # 0.0 K/mm3 WBC Morphology Not Reportable Hypersegmented Neuts Not Reportable Hyposegmented Neuts Not Reportable Hypogranular Neuts Not Reportable Smudge Cells Not Reportable Toxic Granulation Not Reportable Toxic Vacuolation Not Reportable Dohle Bodies Not Reportable Pelger-Huet Anomaly Not Reportable Reyes Rods Not Reportable Platelet Estimate Consistent w auto Clumped Platelets Not Reportable Plt Clumps, EDTA Not Reportable Large Platelets Not Reportable Giant Platelets Not Reportable Platelet Satelliting Not Reportable Plt Morphology Comment Not Reportable RBC Morphology Not Reportable Dimorphic RBCs Not Reportable Polychromasia Not Reportable Hypochromasia Not Reportable Poikilocytosis 1+ Anisocytosis 1+ Microcytosis Not Reportable Macrocytosis Not Reportable Spherocytes Not Reportable Pappenheimer Bodies Not Reportable Sickle Cells Not Reportable Target Cells Not Reportable Tear Drop Cells Not Reportable Ovalocytes 1+ Helmet Cells Not Reportable [place] Bodies Not Reportable [place] Rings Not Reportable Otoniel Cells Not Reportable Bite Cells Not Reportable Crenated Cell Not Reportable Elliptocytes Few Acanthocytes (Spur) Not Reportable Rouleaux Not Reportable Hemoglobin C Crystals Not Reportable Schistocytes Not Reportable Malaria parasites Not Reportable João Bodies Not Reportable Hem Pathologist Commnt No PT (12.2-14.9) Sec. INR (0.87-1.13) APTT (24.2-36.6) Sec. D-Dimer 1612.79 H (0-234) ng/mlDDU Sodium (137-145) mmol/L Potassium (3.6-5.0) mmol/L Chloride (98-107) mmol/L Carbon Dioxide (22-30) mmol/L Anion Gap mmol/L BUN (9-20) mg/dL Creatinine (0.8-1.5) mg/dL Estimated GFR ml/min BUN/Creatinine Ratio % Glucose 220 H (75-100) mg/dL Calcium (8.4-10.2) mg/dL Magnesium (1.7-2.3) mg/dL Total Bilirubin (0.1-1.2) mg/dL AST (5-40) units/L ALT (7-56) units/L Alkaline Phosphatase (35-129) units/L Lactate Dehydrogenase 221 H (91-180) units/L Troponin T (0.00-0.029) ng/mL C-Reactive Protein 16.80 H (0.00-1.30) mg/dL NT-Pro-B Natriuret Pep (0-900) pg/mL Total Protein (6.3-8.2) g/dL Albumin (3.9-5) g/dL Albumin/Globulin Ratio % Procalcitonin (<0.15) ng/mL 08/04/19 08/04/19 08/04/19 Range/Units 13:36 13:36 13:36 WBC (4.5-11.0) K/mm3 RBC (3.65-5.03) M/mm3 Hgb (11.8-15.2) gm/dl Hct (35.5-45.6) % MCV (84-94) fl MCH (28-32) pg MCHC (32-34) % RDW (13.2-15.2) % Plt Count (140-440) K/mm3 Add Manual Diff Total Counted Seg Neutrophils % Seg Neuts % (Manual) (40.0-70.0) % Band Neutrophils % % Lymphocytes % (Manual) (13.4-35.0) % Reactive Lymphs % (Man) % Monocytes % (Manual) (0.0-7.3) % Eosinophils % (Manual) (0.0-4.3) % Basophils % (Manual) (0.0-1.8) % Metamyelocytes % % Myelocytes % % Promyelocytes % % Blast Cells % % Nucleated RBC % Seg Neutrophils # Man (1.8-7.7) K/mm3 Band Neutrophils # K/mm3 Lymphocytes # (Manual) (1.2-5.4) K/mm3 Abs React Lymphs (Man) K/mm3 Monocytes # (Manual) (0.0-0.8) K/mm3 Eosinophils # (Manual) (0.0-0.4) K/mm3 Basophils # (Manual) (0.0-0.1) K/mm3 Metamyelocytes # K/mm3 Myelocytes # K/mm3 Promyelocytes # K/mm3 Blast Cells # K/mm3 WBC Morphology Hypersegmented Neuts Hyposegmented Neuts Hypogranular Neuts Smudge Cells Toxic Granulation Toxic Vacuolation Dohle Bodies Pelger-Huet Anomaly Eryes Rods Platelet Estimate Clumped Platelets Plt Clumps, EDTA Large Platelets Giant Platelets Platelet Satelliting Plt Morphology Comment RBC Morphology Dimorphic RBCs Polychromasia Hypochromasia Poikilocytosis Anisocytosis Microcytosis Macrocytosis Spherocytes Pappenheimer Bodies Sickle Cells Target Cells Tear Drop Cells Ovalocytes Helmet Cells [place] Bodies [place] Rings Lesage Cells Bite Cells Crenated Cell Elliptocytes Acanthocytes (Spur) Rouleaux Hemoglobin C Crystals Schistocytes Malaria parasites João Bodies Hem Pathologist Commnt PT 17.6 H (12.2-14.9) Sec. INR 1.48 H (0.87-1.13) APTT 31.0 (24.2-36.6) Sec. D-Dimer 1574.23 H (0-234) ng/mlDDU Sodium 137 (137-145) mmol/L Potassium 4.1 (3.6-5.0) mmol/L Chloride 96.9 L (98-107) mmol/L Carbon Dioxide 20 L (22-30) mmol/L Anion Gap 24 mmol/L BUN 47 H (9-20) mg/dL Creatinine 7.2 H (0.8-1.5) mg/dL Estimated GFR 8 ml/min BUN/Creatinine Ratio 7 % Glucose 216 H (75-100) mg/dL Calcium 8.7 (8.4-10.2) mg/dL Magnesium 2.30 (1.7-2.3) mg/dL Total Bilirubin 0.40 (0.1-1.2) mg/dL AST 11 (5-40) units/L ALT 5 L (7-56) units/L Alkaline Phosphatase 97 (35-129) units/L Lactate Dehydrogenase 236 H (91-180) units/L Troponin T 0.344 H* (0.00-0.029) ng/mL C-Reactive Protein 16.40 H (0.00-1.30) mg/dL NT-Pro-B Natriuret Pep (0-900) pg/mL Total Protein 6.8 (6.3-8.2) g/dL Albumin 2.9 L (3.9-5) g/dL Albumin/Globulin Ratio 0.7 % Procalcitonin 7.29 (<0.15) ng/mL 08/04/19 Range/Units 13:36 WBC (4.5-11.0) K/mm3 RBC (3.65-5.03) M/mm3 Hgb (11.8-15.2) gm/dl Hct (35.5-45.6) % MCV (84-94) fl MCH (28-32) pg MCHC (32-34) % RDW (13.2-15.2) % Plt Count (140-440) K/mm3 Add Manual Diff Total Counted Seg Neutrophils % Seg Neuts % (Manual) (40.0-70.0) % Band Neutrophils % % Lymphocytes % (Manual) (13.4-35.0) % Reactive Lymphs % (Man) % Monocytes % (Manual) (0.0-7.3) % Eosinophils % (Manual) (0.0-4.3) % Basophils % (Manual) (0.0-1.8) % Metamyelocytes % % Myelocytes % % Promyelocytes % % Blast Cells % % Nucleated RBC % Seg Neutrophils # Man (1.8-7.7) K/mm3 Band Neutrophils # K/mm3 Lymphocytes # (Manual) (1.2-5.4) K/mm3 Abs React Lymphs (Man) K/mm3 Monocytes # (Manual) (0.0-0.8) K/mm3 Eosinophils # (Manual) (0.0-0.4) K/mm3 Basophils # (Manual) (0.0-0.1) K/mm3 Metamyelocytes # K/mm3 Myelocytes # K/mm3 Promyelocytes # K/mm3 Blast Cells # K/mm3 WBC Morphology Hypersegmented Neuts Hyposegmented Neuts Hypogranular Neuts Smudge Cells Toxic Granulation Toxic Vacuolation Dohle Bodies Pelger-Huet Anomaly Reyes Rods Platelet Estimate Clumped Platelets Plt Clumps, EDTA Large Platelets Giant Platelets Platelet Satelliting Plt Morphology Comment RBC Morphology Dimorphic RBCs Polychromasia Hypochromasia Poikilocytosis Anisocytosis Microcytosis Macrocytosis Spherocytes Pappenheimer Bodies Sickle Cells Target Cells Tear Drop Cells Ovalocytes Helmet Cells [place] Bodies [place] Rings Lesage Cells Bite Cells Crenated Cell Elliptocytes Acanthocytes (Spur) Rouleaux Hemoglobin C Crystals Schistocytes Malaria parasites João Bodies Hem Pathologist Commnt PT (12.2-14.9) Sec. INR (0.87-1.13) APTT (24.2-36.6) Sec. D-Dimer (0-234) ng/mlDDU Sodium (137-145) mmol/L Potassium (3.6-5.0) mmol/L Chloride (98-107) mmol/L Carbon Dioxide (22-30) mmol/L Anion Gap mmol/L BUN (9-20) mg/dL Creatinine (0.8-1.5) mg/dL Estimated GFR ml/min BUN/Creatinine Ratio % Glucose (75-100) mg/dL Calcium (8.4-10.2) mg/dL Magnesium (1.7-2.3) mg/dL Total Bilirubin (0.1-1.2) mg/dL AST (5-40) units/L ALT (7-56) units/L Alkaline Phosphatase (35-129) units/L Lactate Dehydrogenase (91-180) units/L Troponin T (0.00-0.029) ng/mL C-Reactive Protein (0.00-1.30) mg/dL NT-Pro-B Natriuret Pep 94563 H (0-900) pg/mL Total Protein (6.3-8.2) g/dL Albumin (3.9-5) g/dL Albumin/Globulin Ratio % Procalcitonin (<0.15) ng/mL - EKG Data -: EKG Interpreted by Nh EKG shows normal: sinus rhythm Rate: normal - EKG Data 08/04/19 14:12 Sinus rhythm, 92 bpm, normal axis, QTC is prolonged, poor R wave progression, the EKG is abnormal, low voltage in the high lateral leads, the EKG is not a STEMI - Radiology Data Radiology results: report reviewed, image reviewed Print Report Referring Physician: CHIARA JORDAN Patient Name: RIDGE HAIR Date of : 1965 Sex: Male Report Date: 2019-08-04 Report Status: Finalized Findings [facility] [address] [place] [address] XRay Report Signed Patient: RIDGE HAIR MR#: [id number] 29 : 1965 Acct:[id number] Age/Sex: 53 / M ADM Date: 08/04/19 Loc: ED Attending Dr: Ordering Physician: CHIARA JORDAN MD Date of Service: 08/04/19 Procedure(s): XR chest 1V ap Accession Number(s): [id number] cc: CHIARA JORDAN MD Fluoro Time In Minutes: CHEST 1 VIEW INDICATION: cough esrd hx of hypoxia. COMPARISON: 06/11/2019 FINDINGS: Support devices: Stable satisfactory device positioning. Heart: Within normal limits. Lungs/Pleura: Increased patchy left upper lobe airspace disease/opacity with otherwise clear lungs. No effusion. Additional findings: None. IMPRESSION: 1. Left upper lobe findings as above. Signer Name: Rm Connell MD Signed: 08/04/2019 1:22 PM Workstation Name: [id number] Transcribed By: AL Dictated By: Rm Connell MD Electronically Authenticated By: Rm Connell MD Signed Date/Time: 08/04/19 132 DD/ 1321 TD/TT: Critical Care Time: Yes Critical care time in (mins) excluding proc time.: 35 Critical care attestation.: If time is entered above; I have spent that time in minutes in the direct care of this critically ill patient, excluding procedure time. ED Disposition Clinical Impression: ESRD on hemodialysis, Pneumonia, Tachypnea, Suspected 2019 novel coronavirus infection Disposition: OP ADMIT IP TO THIS HOSP Is pt being admited?: Yes Condition: Fair Instructions: Bacterial Pneumonia (ED) Referrals: PRIMARY CARE, [Primary Care Provider] - 3-5 Days
--- NOTE | 2019-08-04 13:26 | XRay Report ---
CHEST 1 VIEW INDICATION: cough esrd hx of hypoxia. COMPARISON: 06/11/2019 FINDINGS: Support devices: Stable satisfactory device positioning. Heart: Within normal limits. Lungs/Pleura: Increased patchy left upper lobe airspace disease/opacity with otherwise clear lungs. N o effusion. Additional findings: None. IMPRESSION: 1. Left upper lobe findings as above. Signer Name: Rm Connell MD Signed: 08/04/2019 1:22 PM Workstation Name: [id number]
[2019-08-04] MEDS ORDERED: cefTRIAXone/NS 1 GM/50 ML 1 GM/50 ML BAG IV ONE (13:32)
[2019-08-04] MEDS ORDERED: AZITHROMYCIN 500 MG in SODIUM CHLORIDE 0.9% 250ML 250 ML IV ONE (14:00)
[2019-08-04 14:07] LABS: Hemoglobin 10.6 gm/dl (11.8-15.2); Mean Corpuscular HGB Conc 30 % (32-34); Mean Corpuscular Volume 87 fl (84-94); Red Blood Count 4.05 M/mm3 (3.65-5.03)
[2019-08-04 14:08] LABS: Hematocrit 35.1 % (35.5-45.6)
[2019-08-04 14:20] LABS: INR 1.48 (0.87-1.13)
[2019-08-04 14:32] LABS: Albumin 2.9 g/dL (3.9-5); C-Reactive Protein 16.4 mg/dL (0.00-1.30); Calcium 8.7 mg/dL (8.4-10.2)
[2019-08-04 14:33] LABS: C-Reactive Protein 16.8 mg/dL (0.00-1.30)
[2019-08-04 14:39] LABS: Band Neutrophils # (Manual) 0.2 K/mm3; Basophils % (Manual) 0 % (0.0-1.8); Total Cells Counted 100
[2019-08-04 14:41] LABS: Anisocytosis 1+
[2019-08-04 14:42] LABS: Ovalocytes 1+; Platelet Estimate Consistent w Auto; Poikilocytosis 1+
[2019-08-04 14:43] LABS: Platelet Count 94 K/mm3 (140-440)
--- NOTE | 2019-08-04 14:47 | History and Physical Report ---
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 Patient has dementia and provides limited history. As p er patient, he has experienced shortness of breath, weakness, and chest tightness over the past 2 days with persistent symptoms over the same timeframe. EMS was notified and upon arrival the patient was found to be in distress and transported to [facility] for further care and evaluation. long-term facility staff report concerns regarding possible COVID-19 exposure. Patient seen and evaluated in the emergency department. Lab and imaging studies reviewed. Patient was found to have left upper lobe pneumonia which is consistent with aspiration pneumonia, end-stage renal disease, systemic inflammatory response syndrome. Patient initiated on COVID-19 protocol in the emergency department. Patient admitted to IMCU and initiated on pneumonia protocol due to increased risk for pulmonary decompensation. No reports of fever, chills, CP, palpitations, NVD, productive cough. Nephrology consulted in ED. Advanced care planning conducted in ED. prior admission on 06/11/2019 reviewed. All medication listed at time of admission has been reconciled. Past History Past Medical History: diabetes, ESRD, heart failure, hypertension, other (See HPI) Past Surgical History: Other (Dialysis access) Social history: single. denies: smoking, alcohol abuse, prescription drug abuse Family history: diabetes, hypertension Medications and Allergies Allergies Allergy/AdvReac Type Severity Reaction Status Date / Time morphine Allergy Unknown Verified 06/05/19 12:17 Home Medications Medication Instructions Recorded Confirmed Last Taken Type Benadryl CAP 25 mg PO Q12H PRN 07/08/17 08/04/19 06/07/19 21:00 History Folic Acid 1 mg PO DAILY 07/08/17 08/04/19 06/07/19 09:00 History Lomotil 2.5-0.025 mg Tablet 2.5 mg PO Q6H PRN 07/08/17 08/04/19 06/07/19 09:00 History Metoprolol Tartrate 25 mg PO Q12H 07/08/17 08/04/19 06/07/19 17:00 History Phoslo 1 tab PO Q6H 07/08/17 08/04/19 06/07/19 17:00 History Remeron 15 mg PO QHS 07/08/17 08/04/19 06/08/19 History Synthroid 25 mcg PO QAM 07/08/17 08/04/19 06/07/19 09:00 History Thiamine HCl 100 mg PO DAILY 07/08/17 08/04/19 06/07/19 09:00 History l Acidophil/B Lactis/B Longum 1 cap PO BID PRN #0 07/08/17 08/04/19 06/07/19 17:00 History Cholestyramine/Aspartame 1 packet PO QDAY 02/17/19 08/04/19 06/07/19 09:00 History [Cholestyramine Light Powder] Acetaminophen TAB 650 mg PO Q4H PRN MDD 4 gm 03/27/19 08/04/19 06/07/19 09:00 Hi story Losartan Potassium 50 mg PO DAILY 03/27/19 08/04/19 06/07/19 09:00 History oxyCODONE /ACETAMINOPHEN [Percocet 1 tab PO Q6HR PRN #24 tablet 06/08/19 08/04/19 Unknown Rx 5/325 mg] Glucagon (Human Recomb) [Glucagen] 1 mg IM Q24H 06/11/19 08/04/19 Unknown History Insulin Glargine,Hum.rec.anlog 36 unit SQ HS 06/11/19 08/04/19 Unknown History [Basaglar Kwikpen U-100] Insulin Lispro [Humalog 100 0 units SQ AC 06/11/19 08/04/19 Unknown History UNITS/ML Kwikpen] Lispro Insulin [HumaLOG] 0 unit SUB-Q ACHS units 06/12/19 08/04/19 Unknown Rx oxyCODONE /ACETAMINOPHEN [Percocet 1 tab PO Q6HR PRN #20 tablet 06/12/19 08/04/19 Unknown Rx 5/325] Active Meds: Active Medications Azithromycin 500 mg/ Sodium (Chloride) 250 mls @ 250 mls/hr IV ONCE ONE; Protocol Stop: 08/04/19 14:59 Last Admin: 08/04/19 14:44 Dose: 250 mls/hr Documented by: Review of Systems Constitutional: no weight loss, no weight gain, no fever, no chills Ears, nose, mouth and throat: no ear pain, no tinnitis, no nasal congestion, no nasal discharge, no sinus pressure Cardiovascular: shortness of breath, no chest pain, no orthopnea, no palpitations, no rapid/irregular heart beat Respiratory: no cough, no cough with sputum, no excessive sputum Gastrointestinal: no abdominal pain, no nausea, no vomiting, no diarrhea, no constipation Genitourinary Male: no hematuria, no flank pain, no discharge, no urinary frequency, no urinary hesitancy Rectal: no pain, no incontinence, no bleeding Musculoskeletal: no neck stiffness, no neck pain, no shooting arm pain, no arm numbness/tingling, no shooting leg pain Integumentary: no rash, no pruritis, no redness, no sores, no wounds Neurological: no head injury, no transient paralysis, no paralysis, no weakness, no tingling Psychiatric: no anxiety, no memory loss, no change in sleep habits, no sleep disturbances, no hypersomnia, no change in libido Endocrine: no cold intolerance, no heat intolerance, no excessive thirst, no polydipsia, no polyuria, no nocturia Hematologic/Lymphatic: no easy bruising, no easy bleeding Allergic/Immunologic: no urticaria, no allergic rhinitis, no wheezing Exam - Constitutional Vitals: Temp Pulse Resp BP Pulse Ox 98.4 F 57 L 15 107/35 97 08/04/19 13:04 08/04/19 13:04 08/04/19 13:04 08/04/19 13:04 08/04/19 13:04 General appearance: Present: mild distress, cachectic, disheveled - EENT Eyes: Present: PERRL ENT: hearing intact, clear oral mucosa - Neck Neck: Present: supple, normal ROM - Respiratory Respiratory effort: normal Respiratory: left: diminished - Cardiovascular Heart Sounds: Present: S1 & S2. Absent: rub, click - Extremities Extremities: pulses symmetrical, No edema Peripheral Pulses: within normal limits - Abdominal General gastrointestinal: Present: soft, non-tender, non-distended, normal bowel sounds Male genitourinary: Present: normal - Integumentary Integumentary: Present: dry, clammy, decreased turgor - Musculoskeletal Musculoskeletal: generalized weakness - Psychiatric Psychiatric: appropriate mood/affect, no intact judgment & insight, no memory intact - Neurologic Neurologic: CNII-XII intact, no focal deficits, moves all extremities, no gait normal HEART Score - HEART Score Troponin: Troponin T 0.344 ng/mL (0.00-0.029) H* 08/04/19 13:36 Results - Labs CBC & Chem 7: 08/04/19 13:36 08/04/19 13:36 Labs: Abnormal lab results 08/04/19 08/04/19 08/04/19 Range/Units 13:36 13:36 13:36 WBC 17.4 H (4.5-11.0) K/mm3 Hgb 10.6 L (11.8-15.2) gm/dl Hct 35.1 L (35.5-45.6) % MCH 26 L (28-32) pg MCHC 30 L (32-34) % RDW 16.0 H (13.2-15.2) % Plt Count 94 L (140-440) K/mm3 Seg Neuts % (Manual) 87.0 H (40.0-70.0) % Lymphocytes % (Manual) 8.0 L (13.4-35.0) % Seg Neutrophils # Man 15.1 H (1.8-7.7) K/mm3 PT (12.2-14.9) Sec. INR (0.87-1.13) D-Dimer 1612.79 H (0-234) ng/mlDDU Chloride (98-107) mmol/L Carbon Dioxide (22-30) mmol/L BUN (9-20) mg/dL Creatinine (0.8-1.5) mg/dL Glucose 220 H (75-100) mg/dL ALT (7-56) units/L Lactate Dehydrogenase 221 H (91-180) units/L Troponin T (0.00-0.029) ng/mL C-Reactive Protein 16.80 H (0.00-1.30) mg/dL NT-Pro-B Natriuret Pep (0-900) pg/mL Albumin (3.9-5) g/dL 08/04/19 08/04/19 08/04/19 Range/Units 13:36 13:36 13:36 WBC (4.5-11.0) K/mm3 Hgb (11.8-15.2) gm/dl Hct (35.5-45.6) % MCH (28-32) pg MCHC (32-34) % RDW (13.2-15.2) % Plt Count (140-440) K/mm3 Seg Neuts % (Manual) (40.0-70.0) % Lymphocytes % (Manual) (13.4-35.0) % Seg Neutrophils # Man (1.8-7.7) K/mm3 PT 17.6 H (12.2-14.9) Sec. INR 1.48 H (0.87-1.13) D-Dimer 1574.23 H (0-234) ng/mlDDU Chloride 96.9 L (98-107) mmol/L Carbon Dioxide 20 L (22-30) mmol/L BUN 47 H (9-20) mg/dL Creatinine 7.2 H (0.8-1.5) mg/dL Glucose 216 H (75-100) mg/dL ALT 5 L (7-56) units/L Lactate Dehydrogenase 236 H (91-180) units/L Troponin T 0.344 H* (0.00-0.029) ng/mL C-Reactive Protein 16.40 H (0.00-1.30) mg/dL NT-Pro-B Natriuret Pep 54575 H (0-900) pg/mL Albumin 2.9 L (3.9-5) g/dL Assessment and Plan - Patient Problems (1) Pneumonia Current Visit: Yes Status: Acute Qualifiers: Laterality: left Lung location: upper lobe of lung Plan to address problem: Pneumonia protocol: CBC, CMP, chest x-ray, supplemental oxygen, IV antibiotic therapy, blood cultures. (2) SIRS (systemic inflammatory response syndrome) Current Visit: Yes Status: Acute Plan to address problem: CBC, CMP, urinalysis, chest x-ray, IV antibiotic therapy. (3) Severe malnutrition Current Visit: Yes Status: Acute Plan to address problem: Encourage increased protein intake, dietary supplementation, supportive care. (4) Diastolic CHF Current Visit: Yes Status: Acute Qualifiers: Heart failure chronicity: chronic Qualified Code(s): I50.32 - Chronic diastolic (congestive) heart failure Plan to address problem: Strict I's/O, monitor urine output every shift, daily weight, blood pressure control, supplemental oxygen, afterload reduction. (5) Suspected 2019 novel coronavirus infection Current Visit: Yes Status: Acute Plan to address problem: COVID-19 protocol: Infectious disease service consulted, (6) ESRD on hemodialysis Current Visit: Yes Status: Chronic Plan to address problem: Nephrology team consulted in ED, strict I's/O, monitor urine output every shift, daily weight, avoid nephrotoxic agents (7) DVT prophylaxis Current Visit: Yes Status: Acute Plan to address problem: SCD to bilateral lower extremities while in bed, prophylactic heparin (8) Advance care planning Current Visit: Yes Status: Acute Plan to address problem: Patient is full code, disease education conducted, +30 minutes.
[2019-08-04] MEDS ORDERED: ACETAMINOPHEN 650 MG PO PRN (14:57)
[2019-08-04] MEDS ORDERED: BENADRYL 25 MG PO PRN (14:57)
[2019-08-04] MEDS ORDERED: B LACTIS PO PRN (14:57)
[2019-08-04] MEDS ORDERED: B LONGUM PO PRN (14:57)
[2019-08-04] MEDS ORDERED: oxyCODONE /ACETAMINOPHEN 5-325MG TAB PO PRN (14:57)
[2019-08-04] MEDS ORDERED: ACIDOPHIL PO PRN (14:57)
[2019-08-04] MEDS ORDERED: ACETAMINOPHEN 325 MG TAB PO PRN (15:10)
[2019-08-04] MEDS ORDERED: diphenhydrAMINE 25 MG CAP PO PRN (15:11)
[2019-08-04] MEDS ORDERED: DIPHENOXYLATE/ATROPINE TAB PO PRN (15:16)
[2019-08-04] MEDS ORDERED: metroNIDAZOLE/NS 500 MG/100 ML 500 MG/100 ML BAG IV ONE ×2 (15:44→22:51)
--- NOTE | 2019-08-04 15:59 | Consultation ---
History of Present Illness - Reason for Consult Consult date: 08/04/19 end stage renal disease - History of Present Illness This is a 53 year old man with ESRD on HD, HTN, DM, dementia, general weakness who presents with confusion. Usually dialyzes // at [facility], and was sent for evaluation from HD unit due to confusion. Did not receive dialysis per reports. Patient seen in ED for consult through window; limited interaction due to COVID crisis and need for rule out. Known to myself from outpatient dialysis. Reviewed outpatient HD records and no major issues noted until today. Past History Past Medical History: diabetes, ESRD, hypertension Past Surgical History: No surgical history Social history: smoking, other (lives in care home) Family history: no significant family history Medications and Allergies Allergies Allergy/AdvReac Type Severity Reaction Status Date / Time morphine Allergy Unknown Verified 06/05/19 12:17 Home Medications Medication Instructions Recorded Confirmed Last Taken Type Benadryl CAP 25 mg PO Q12H PRN 07/08/17 08/04/19 06/07/19 21:00 History Folic Acid 1 mg PO DAILY 07/08/17 08/04/19 06/07/19 09:00 History Lomotil 2.5-0.025 mg Tablet 2.5 mg PO Q6H PRN 07/08/17 08/04/19 06/07/19 09:00 History Metoprolol Tartrate 25 mg PO Q12H 07/08/17 08/04/19 06/07/19 17:00 History Phoslo 1 tab PO Q6H 07/08/17 08/04/19 06/07/19 17:00 History Remeron 15 mg PO QHS 07/08/17 08/04/19 06/08/19 History Synthroid 25 mcg PO QAM 07/08/17 08/04/19 06/07/19 09:00 History Thiamine HCl 100 mg PO DAILY 07/08/17 08/04/19 06/07/19 09:00 History l Acidophil/B Lactis/B Longum 1 cap PO BID PRN #0 07/08/17 08/04/19 06/07/19 17:00 History Cholestyramine/Aspartame 1 packet PO QDAY 02/17/19 08/04/19 06/07/19 09:00 History [Cholestyramine Light Powder] Acetaminophen TAB 650 mg PO Q4H PRN MDD 4 gm 03/27/19 08/04/19 06/07/19 09:00 History Losartan Potassium 50 mg PO DAILY 03/27/19 08/04/19 06/07/19 09:00 History oxyCODONE /ACETAMINOPHEN [Percocet 1 tab PO Q6HR PRN #24 tablet 06/08/19 08/04/19 Unknown Rx 5/325 mg] Glucagon (Human Recomb) [Glucagen] 1 mg IM Q24H 06/11/19 08/04/19 Unknown History Insulin Glargine,Hum.rec.anlog 36 unit SQ HS 06/11/19 08/04/19 Unknown History [Basaglar Kwikpen U-100] Insulin Lispro [Humalog 100 0 units SQ AC 06/11/19 08/04/19 Unknown History UNITS/ML Kwikpen] Lispro Insulin [HumaLOG] 0 unit SUB-Q ACHS units 06/12/19 08/04/19 Unknown Rx oxyCODONE /ACETAMINOPHEN [Percocet 1 tab PO Q6HR PRN #20 tablet 06/12/19 08/04/19 Unknown Rx 5/325] Active Meds: Active Medications Acetaminophen (Tylenol) 650 mg PO Q4H PRN PRN Reason: Pain, Mild (1-3) Calcium Acetate (Phoslo) 667 mg PO Q6HR [facility] Cholestyramine Resin (Questran) 4 gm PO QDAY [facility] Diphenhydramine HCl (Benadryl) 25 mg PO Q12H PRN PRN Reason: Itching Diphenoxylate HCl/Atropine (Lomotil) 1 tab PO Q6H PRN PRN Reason: Diarrhea Folic Acid (Folvite) 1 mg PO DAILY [facility] Glucagon (Glucagen) 1 mg IM Q24H [facility] Metronidazole (Flagyl 500 Mg/100 Ml) 500 mg in 100 mls @ 100 mls/hr IV Q8H [facility]; Protocol Levofloxacin/Dextrose (Levaquin 750mg/150ml) 750 mg in 150 mls @ 100 mls/hr IV ONCE ONE; Protocol Stop: 08/04/19 17:29 Levofloxacin/Dextrose (Levaquin 500mg/100ml) 500 mg in 100 mls @ 66.667 mls/hr IV Q48H [facility]; Protocol Levothyroxine Sodium (Synthroid) 25 mcg PO DAILY@0600 [facility] Losartan Potassium (Cozaar) 50 mg PO QDAY [facility] Metoprolol Tartrate (Metoprolol) 25 mg PO BID [facility] Mirtazapine (Remeron) 15 mg PO QHS [facility] Oxycodone/Acetaminophen (Percocet 5/325) 1 tab PO Q6HR PRN PRN Reason: Pain, Moderate (4-6) Sodium Chloride (Sodium Chloride Flush Syringe 10 Ml) 10 ml IV BID [facility] Sodium Chloride (Sodium Chloride Flush Syringe 10 Ml) 10 ml IV PRN PRN PRN Reason: LINE FLUSH Thiamine HCl (Vitamin B-1) 100 mg PO QDAY [facility] Review of Systems ROS unobtainable: due to mental status Exam - Vital Signs Vital signs: Vital Signs Temp Pulse Resp BP Pulse Ox 98.4 F 57 L 15 107/35 97 08/04/19 13:04 08/04/19 13:04 08/04/19 13:04 08/04/19 13:04 08/04/19 13:04 - Physical Exam Narrative exam: Exam limited by COVID-19 crisis, limited PPE. Seen through window, chronically ill appearing, no labored breathing, on room air with good O2 sats. Soft BP noted. Results - Lab Results 08/04/19 13:36 08/04/19 13:36 Most recent lab results Calcium 8.7 mg/dL (8.4-10.2) 08/04/19 13:36 Magnesium 2.30 mg/dL (1.7-2.3) 08/04/19 13:36 Assessment and Plan This is a 53 year old man who presents with confusion, generalized weakness. # ESRD: usually // HD; will hold HD today given lack of emergent symptoms and relative hypotension. Will plan for HD tomorrow unless needed emergently - daily labs - renally dose meds - avoid nephrotoxins - renal diet # Anemia: last hemoglobin 10.6, no indication for ESAs acutely # HTN: reviewed CXR, no obvious pulmonary edema. Caution with UF with HD given soft BP. Would hold home antihypertensives for now # Secondary Hyperparathyroidism: continue home binders as needed # Concern for COVID/Leukocytosis/Left Lobe Infiltrate: workup per primary/ID
[2019-08-04] MEDS: metroNIDAZOLE/NS 500 MG/100 ML 500 MG/100 ML BAG IV SCH ×2 (16:07→22:51)
[2019-08-04] MEDS: GLUCAGON (HUMAN RECOMBINANT) 1 MG/ML INJ IM SCH (16:08)
[2019-08-04] MEDS ORDERED: SODIUM CHLORIDE 0.9% 100 ML IV PRN ×2 (16:18→16:43)
[2019-08-04] MEDS: CALCIUM ACETATE 667 MG CAP PO SCH (17:36)
[2019-08-04 17:42] LABS: Hepatitis B Surface Antigen Non-Reactive (Negative); Hepatitis C Virus Antibody Non-Reactive (NonReactive)
[2019-08-04] MEDS ORDERED: HEPARIN 5,000 UNIT/1 ML VIAL ONE (21:48)
[2019-08-04] MEDS ORDERED: METOPROLOL TARTRATE 25 MG TAB ONE (21:48)
[2019-08-04] MEDS ORDERED: MIRTAZAPINE 15 MG TAB ONE (21:48)
[2019-08-04] MEDS: MIRTAZAPINE 15 MG TAB PO SCH (21:51)
[2019-08-04] MEDS: METOPROLOL TARTRATE 25 MG TAB PO SCH (21:55)
[2019-08-04] MEDS: HEPARIN 5,000 UNIT/1 ML VIAL SUB-Q SCH (21:56)
[2019-08-04] MEDS ORDERED: REMERON 15 MG PO SCH (22:00)
[2019-08-05] MEDS: CALCIUM ACETATE 667 MG CAP PO SCH ×4 (01:04→23:42)
[2019-08-05 05:34] LABS: Basophils % (Auto) 0.2 % (0.0-1.8); Eosinophils # (Auto) 0.3 K/mm3 (0.0-0.4); Eosinophils % (Auto) 2.2 % (0.0-4.3); Hematocrit 31.3 % (35.5-45.6); Hemoglobin 9.5 gm/dl (11.8-15.2); Lymphocytes # (Auto) 0.6 K/mm3 (1.2-5.4); Mean Corpuscular HGB Conc 30 % (32-34); Mean Corpuscular Volume 87 fl (84-94); Monocytes # (Auto) 0.7 K/mm3 (0.0-0.8); Monocytes % (Auto) 4.7 % (0.0-7.3)
[2019-08-05 05:41] LABS: Platelet Count 85 K/mm3 (140-440)
[2019-08-05 05:58] LABS: Albumin 2.8 g/dL (3.9-5); BUN/Creatinine Ratio 7; Blood Urea Nitrogen 55 mg/dL (9-20); Calcium 8.2 mg/dL (8.4-10.2); Hemolysis Index 8
[2019-08-05 06:16] LABS: Alanine Aminotransferase < 5 units/L (7-56)
[2019-08-05] MEDS ORDERED: metroNIDAZOLE/NS 500 MG/100 ML 500 MG/100 ML BAG IV ONE ×2 (07:45→18:07)
[2019-08-05] MEDS: metroNIDAZOLE/NS 500 MG/100 ML 500 MG/100 ML BAG IV SCH ×3 (08:25→23:41)
[2019-08-05] MEDS ORDERED: SYNTHROID 25 MCG PO SCH (10:00)
[2019-08-05] MEDS ORDERED: ASPARTAME PO SCH (10:00)
[2019-08-05] MEDS ORDERED: THIAMINE HCL 100 MG PO SCH (10:00)
[2019-08-05] MEDS ORDERED: CHOLESTYRAMINE PO SCH (10:00)
--- NOTE | 2019-08-05 15:40 | Progress Note ---
Assessment and Plan # ESRD: MWF; - daily labs - renally dose meds - avoid nephrotoxins - renal diet # Anemia:no indication for ESAs acutely # HTN: reviewed CXR, no obvious pulmonary edema. Caution with UF with HD given soft BP. Would hold home antihypertensives for now # Secondary Hyperparathyroidism: continue home binders as needed # Concern for COVID/Leukocytosis/Left Lobe Infiltrate: workup per primary/ID Subjective Date of service: 08/05/19 Principal diagnosis: esrd Interval history: resting in bed Objective - Exam Narrative Exam: Exam limited by COVID-19 crisis, limited PPE. Seen through window, chronically ill appearing, no labored breathing, on room air with good O2 sats. Soft BP noted. - Vital Signs Vital signs: Vital Signs - 12hr 08/05/19 08/05/19 08/05/19 03:45 04:01 04:15 Temperature Pulse Rate 88 86 83 Respiratory 46 H 34 H 31 H Rate Blood Pressure 105/21 135/71 135/71 O2 Sat by Pulse 100 100 100 Oximetry 08/05/19 08/05/19 08/05/19 04:31 04:45 05:01 Temperature Pulse Rate 92 H 90 90 Respiratory 31 H 30 H 45 H Rate Blood Pressure 196/132 196/132 181/112 O2 Sat by Pulse 98 99 99 Oximetry 08/05/19 08/05/19 08/05/19 05:15 05:31 05:45 Temperature Pulse Rate 87 86 84 Respiratory 39 H 37 H 33 H Rate Blood Pressure 181/112 104/47 104/47 O2 Sat by Pulse 98 97 96 Oximetry 08/05/19 08/05/19 08/05/19 06:01 06:15 06:31 Temperature Pulse Rate 86 87 84 Respiratory 35 H 38 H 27 H Rate Blood Pressure 118/66 118/66 104/28 O2 Sat by Pulse 99 100 100 Oximetry 08/05/19 08/05/19 08/05/19 06:45 07:01 09:48 Temperature Pulse Rate 81 81 83 Respiratory 29 H 25 H Rate Blood Pressure 104/28 97/40 120/71 O2 Sat by Pulse 100 100 Oximetry 08/05/19 08/05/19 08/05/19 09:52 10:07 10:16 Temperature Pulse Rate 83 89 89 Respiratory Rate Blood Pressure 119/69 113/70 99/56 O2 Sat by Pulse Oximetry 08/05/19 08/05/19 08/05/19 10:22 10:39 10:53 Temperature Pulse Rate 89 92 H 95 H Respiratory Rate Blood Pressure 103/69 106/62 96/59 O2 Sat by Pulse Oximetry 08/05/19 08/05/19 08/05/19 11:08 11:22 11:37 Temperature Pulse Rate 95 H 94 H 94 H Respiratory Rate Blood Pressure 114/68 115/69 108/68 O2 Sat by Pulse Oximetry 08/05/19 08/05/19 08/05/19 11:52 12:07 12:22 Temperature Pulse Rate 95 H 97 H 98 H Respiratory Rate Blood Pressure 106/65 117/67 109/61 O2 Sat by Pulse Oximetry 08/05/19 08/05/19 08/05/19 12:37 12:53 13:04 Temperature Pulse Rate 98 H 101 H 102 H Respiratory Rate Blood Pressure 114/66 116/62 115/73 O2 Sat by Pulse Oximetry 08/05/19 13:20 Temperature 98.1 F Pulse Rate 100 H Respiratory 30 H Rate Blood Pressure 129/74 O2 Sat by Pulse Oximetry - Lab 08/05/19 05:15 08/05/19 05:15 Most recent lab results Calcium 8.2 mg/dL (8.4-10.2) L 08/05/19 05:15 Magnesium 2.30 mg/dL (1.7-2.3) 08/04/19 13:36 Medications & Allergies - Medications Allergies/Adverse Reactions: Allergies morphine Allergy (Verified 06/05/19 12:17) Unknown Home Medications: Home Medications Medication Instructions Recorded Confirmed Last Taken Type Benadryl CAP 25 mg PO Q12H PRN 07/08/17 08/04/19 06/07/19 21:00 History Folic Acid 1 mg PO DAILY 07/08/17 08/04/19 06/07/19 09:00 History Lomotil 2.5-0.025 mg Tablet 2.5 mg PO Q6H PRN 07/08/17 08/04/19 06/07/19 09:00 History Metoprolol Tartrate 25 mg PO Q12H 07/08/17 08/04/19 06/07/19 17:00 History Phoslo 1 tab PO Q6H 07/08/17 08/04/19 06/07/19 17:00 History Remeron 15 mg PO QHS 07/08/17 08/04/19 06/08/19 History Synthroid 25 mcg PO QAM 07/08/17 08/04/19 06/07/19 09:00 History Thiamine HCl 100 mg PO DAILY 07/08/17 08/04/19 06/07/19 09:00 History l Acidophil/B Lactis/B Longum 1 cap PO BID PRN #0 07/08/17 08/04/19 06/07/19 17:00 History Cholestyramine/Aspartame 1 packet PO QDAY 02/17/19 08/04/19 06/07/19 09:00 History [Cholestyramine Light Powder] Acetaminophen TAB 650 mg PO Q4H PRN MDD 4 gm 03/27/19 08/04/19 06/07/19 09:00 History Losartan Potassium 50 mg PO DAILY 03/27/19 08/04/19 06/07/19 09:00 History oxyCODONE /ACETAMINOPHEN [Percocet 1 tab PO Q6HR PRN #24 tablet 06/08/19 08/04/19 Unknown Rx 5/325 mg] Glucagon (Human Recomb) [Glucagen] 1 mg IM Q24H 06/11/19 08/04/19 Unknown History Insulin Glargine,Hum.rec.anlog 36 unit SQ HS 06/11/19 08/04/19 Unknown History [Basaglar Kwikpen U-100] Insulin Lispro [Humalog 100 0 units SQ AC 06/11/19 08/04/19 Unknown History UNITS/ML Kwikpen] Lispro Insulin [HumaLOG] 0 unit SUB-Q ACHS units 06/12/19 08/04/19 Unknown Rx oxyCODONE /ACETAMINOPHEN [Percocet 1 tab PO Q6HR PRN #20 tablet 06/12/19 08/04/19 Unknown Rx 5/325] Active Medications: Generic Name Dose Route Start Last Admin Trade Name Freq PRN Reason Stop Dose Admin Acetaminophen 650 mg 08/04/19 15:10 Tylenol PO Q4H PRN Pain, Mild (1-3) Calcium Acetate 667 mg 08/04/19 18:00 08/05/19 08:25 Phoslo PO 667 mg Q6HR [facility] Administration Cholestyramine Resin 4 gm 08/05/19 10:00 Questran PO QDAY [facility] Diphenhydramine HCl 25 mg 08/04/19 15:11 Benadryl PO Q12H PRN Itching Diphenoxylate HCl/Atropine 1 tab 08/04/19 15:16 Lomotil PO Q6H PRN Diarrhea Folic Acid 1 mg 08/05/19 10:00 Folvite PO DAILY [facility] Glucagon 1 mg 08/04/19 15:00 08/04/19 16:08 Glucagen IM 1 mg Q24H [facility] Administration Heparin Sodium (Porcine) 5,000 unit 08/04/19 22:00 08/04/19 21:56 Heparin SUB-Q 5,000 unit Q12HR [facility] Administration Metronidazole 500 mg in 100 mls @ 100 mls/hr 08/04/19 15:00 08/05/19 08:25 Flagyl 500 Mg/100 Ml IV 100 mls/hr Q8H [facility] Administration Protocol Levofloxacin/Dextrose 500 mg in 100 mls @ 66.667 mls/hr 08/06/19 10:00 Levaquin 500mg/100ml IV Q48H [facility] Protocol Sodium Chloride 100 mls @ 999 mls/hr 08/04/19 16:18 Nacl 0.9% IV [id number] PRN Hypotension Sodium Chloride 100 mls @ 999 mls/hr 08/04/19 16:43 Nacl 0.9% IV [id number] PRN Hypotension Levothyroxine Sodium 25 mcg 08/05/19 06:00 Synthroid PO DAILY@0600 [facility] Losartan Potassium 50 mg 08/05/19 10:00 Cozaar PO QDAY [facility] Metoprolol Tartrate 25 mg 08/04/19 22:00 08/04/19 21:55 Metoprolol PO Not Given BID [facility] Mirtazapine 15 mg 08/04/19 22:00 08/04/19 21:51 Remeron PO 15 mg QHS [facility] Administration Oxycodone/Acetaminophen 1 tab 08/04/19 14:57 Percocet 5/325 PO Q6HR PRN Pain, Moderate (4-6) Sodium Chloride 10 ml 08/04/19 22:00 08/04/19 22:09 Sodium Chloride Flush Syringe 10 Ml IV 10 ml BID [facility] Administration Sodium Chloride 10 ml 08/04/19 14:53 Sodium Chloride Flush Syringe 10 Ml IV PRN PRN LINE FLUSH Thiamine HCl 100 mg 08/05/19 10:00 Vitamin B-1 PO QDAY [facility]
[2019-08-05] MEDS ORDERED: FOLIC ACID 1 MG TAB ONE (18:07)
[2019-08-05] MEDS ORDERED: LOSARTAN 50 MG TAB ONE (18:07)
[2019-08-05] MEDS ORDERED: HEPARIN 5,000 UNIT/1 ML VIAL ONE (18:08)
--- NOTE | 2019-08-05 18:11 | Progress Note ---
Assessment and Plan - Patient Problems (1) Pneumonia Current Visit: Yes Status: Acute Qualifiers: Laterality: left Lung location: upper lobe of lung Plan to address problem: Pneumonia protocol: CBC, CMP, chest x-ray, supplemental oxygen, IV antibiotic therapy, blood cultures. (2) SIRS (systemic inflammatory response syndrome) Current Visit: Yes Status: Acute Plan to address problem: CBC, CMP, urinalysis, chest x-ray, IV antibiotic therapy. (3) Severe malnutrition Current Visit: Yes Status: Acute Plan to address problem: Encourage increased protein intake, dietary supplementation, supportive care. (4) Diastolic CHF Current Visit: Yes Status: Acute Qualifiers: Heart failure chronicity: chronic Qualified Code(s): I50.32 - Chronic diastolic (congestive) heart failure Plan to address problem: Strict I's/O, monitor urine output every shift, daily weight, blood pressure control, supplemental oxygen, afterload reduction. (5) Suspected 2019 novel coronavirus infection Current Visit: Yes Status: Acute Plan to address problem: Coronavirus PCR negative. (6) ESRD on hemodialysis Current Visit: Yes Status: Chronic Plan to address problem: Nephrology team consulted in ED, strict I's/O, monitor urine output every shift, daily weight, avoid nephrotoxic agents (7) DVT prophylaxis Current Visit: Yes Status: Acute Plan to address problem: SCD to bilateral lower extremities while in bed, prophylactic heparin (8) Advance care planning Current Visit: Yes Status: Acute Plan to address problem: Patient is full code, disease education conducted, +30 minutes. History Interval history: 53 YO Male HD #2 with Pneumonia complicated by SIRS, ESRD, Severe Malnutrition, Diastolic CHF, with Suspected Coronavirus. Coronavirus PCR Negative. No reported nursing events. No reports of fever, chills, chest pain, productive cough, recent ill contacts. Continue antibiotic therapy for pneumonia. Hospitalist Physical - Constitutional Vitals: Temp Pulse Resp BP Pulse Ox 98.1 F 92 H 35 H 97/35 100 08/05/19 13:20 08/05/19 17:01 08/05/19 17:01 08/05/19 17:01 08/05/19 17:01 General appearance: Present: mild distress, cachectic, disheveled - EENT Eyes: Present: PERRL ENT: hearing intact - Neck Neck: Present: supple - Respiratory Respiratory: bilateral: diminished - Cardiovascular Rhythm: regular Heart Sounds: Present: S1 & S2 - Extremities Extremities: no ischemia Peripheral Pulses: within normal limits - Abdominal General gastrointestinal: soft, non-tender, non-distended - Integumentary Integumentary: Present: clear, dry - Psychiatric Psychiatric: cooperative - Neurologic Neurologic: CNII-XII intact HEART Score - HEART Score Troponin: Troponin T 0.344 ng/mL (0.00-0.029) H* 08/04/19 13:36 Results - Labs CBC & Chem 7: 08/06/19 08:06 08/06/19 08:06 Labs: Laboratory Last Values WBC 14.7 K/mm3 (4.5-11.0) H 08/05/19 05:15 RBC 3.60 M/mm3 (3.65-5.03) L 08/05/19 05:15 Hgb 9.5 gm/dl (11.8-15.2) L 08/05/19 05:15 Hct 31.3 % (35.5-45.6) L 08/05/19 05:15 MCV 87 fl (84-94) 08/05/19 05:15 MCH 26 pg (28-32) L 08/05/19 05:15 MCHC 30 % (32-34) L 08/05/19 05:15 RDW 16.0 % (13.2-15.2) H 08/05/19 05:15 Plt Count 85 K/mm3 (140-440) L 08/05/19 05:15 Lymph % (Auto) 4.0 % (13.4-35.0) L 08/05/19 05:15 [place] % (Auto) 4.7 % (0.0-7.3) 08/05/19 05:15 Eos % (Auto) 2.2 % (0.0-4.3) 08/05/19 05:15 Baso % (Auto) 0.2 % (0.0-1.8) 08/05/19 05:15 Lymph # 0.6 K/mm3 (1.2-5.4) L 08/05/19 05:15 [place] # 0.7 K/mm3 (0.0-0.8) 08/05/19 05:15 Eos # 0.3 K/mm3 (0.0-0.4) 08/05/19 05:15 Baso # 0.0 K/mm3 (0.0-0.1) 08/05/19 05:15 Add Manual Diff Complete 08/04/19 13:36 Total Counted 100 08/04/19 13:36 Seg Neutrophils % 88.9 % (40.0-70.0) H 08/05/19 05:15 Seg Neuts % (Manual) 87.0 % (40.0-70.0) H 08/04/19 13:36 Band Neutrophils % 1.0 % 08/04/19 13:36 Lymphocytes % (Manual) 8.0 % (13.4-35.0) L 08/04/19 13:36 Reactive Lymphs % (Man) 0 % 08/04/19 13:36 Monocytes % (Manual) 2.0 % (0.0-7.3) 08/04/19 13:36 Eosinophils % (Manual) 2.0 % (0.0-4.3) 08/04/19 13:36 Basophils % (Manual) 0 % (0.0-1.8) 08/04/19 13:36 Metamyelocytes % 0 % 08/04/19 13:36 Myelocytes % 0 % 08/04/19 13:36 Promyelocytes % 0 % 08/04/19 13:36 Blast Cells % 0 % 08/04/19 13:36 Nucleated RBC % Not Reportable 08/04/19 13:36 Seg Neutrophils # 13.1 K/mm3 (1.8-7.7) H 08/05/19 05:15 Seg Neutrophils # Man 15.1 K/mm3 (1.8-7.7) H 08/04/19 13:36 Band Neutrophils # 0.2 K/mm3 08/04/19 13:36 Lymphocytes # (Manual) 1.4 K/mm3 (1.2-5.4) 08/04/19 13:36 Abs React Lymphs (Man) 0.0 K/mm3 08/04/19 13:36 Monocytes # (Manual) 0.3 K/mm3 (0.0-0.8) 08/04/19 13:36 Eosinophils # (Manual) 0.3 K/mm3 (0.0-0.4) 08/04/19 13:36 Basophils # (Manual) 0.0 K/mm3 (0.0-0.1) 08/04/19 13:36 Metamyelocytes # 0.0 K/mm3 08/04/19 13:36 Myelocytes # 0.0 K/mm3 08/04/19 13:36 Promyelocytes # 0.0 K/mm3 08/04/19 13:36 Blast Cells # 0.0 K/mm3 08/04/19 13:36 WBC Morphology Not Reportable 08/04/19 13:36 Hypersegmented Neuts Not Reportable 08/04/19 13:36 Hyposegmented Neuts Not Reportable 08/04/19 13:36 Hypogranular Neuts Not Reportable 08/04/19 13:36 Smudge Cells Not Reportable 08/04/19 13:36 Toxic Granulation Not Reportable 08/04/19 13:36 Toxic Vacuolation Not Reportable 08/04/19 13:36 Dohle Bodies Not Reportable 08/04/19 13:36 Pelger-Huet Anomaly Not Reportable 08/04/19 13:36 Reyes Rods Not Reportable 08/04/19 13:36 Platelet Estimate Consistent w auto 08/04/19 13:36 Clumped Platelets Not Reportable 08/04/19 13:36 Plt Clumps, EDTA Not Reportable 08/04/19 13:36 Large Platelets Not Reportable 08/04/19 13:36 Giant Platelets Not Reportable 08/04/19 13:36 Platelet Satelliting Not Reportable 08/04/19 13:36 Plt Morphology Comment Not Reportable 08/04/19 13:36 RBC Morphology Not Reportable 08/04/19 13:36 Dimorphic RBCs Not Reportable 08/04/19 13:36 Polychromasia Not Reportable 08/04/19 13:36 Hypochromasia Not Reportable 08/04/19 13:36 Poikilocytosis 1+ 08/04/19 13:36 Anisocytosis 1+ 08/04/19 13:36 Microcytosis Not Reportable 08/04/19 13:36 Macrocytosis Not Reportable 08/04/19 13:36 Spherocytes Not Reportable 08/04/19 13:36 Pappenheimer Bodies Not Reportable 08/04/19 13:36 Sickle Cells Not Reportable 08/04/19 13:36 Target Cells Not Reportable 08/04/19 13:36 Tear Drop Cells Not Reportable 08/04/19 13:36 Ovalocytes 1+ 08/04/19 13:36 Helmet Cells Not Reportable 08/04/19 13:36 [place]-Capulin Bodies Not Reportable 08/04/19 13:36 [place] Rings Not Reportable 08/04/19 13:36 Otoniel Cells Not Reportable 08/04/19 13:36 Bite Cells Not Reportable 08/04/19 13:36 Crenated Cell Not Reportable 08/04/19 13:36 Elliptocytes Few 08/04/19 13:36 Acanthocytes (Spur) Not Reportable 08/04/19 13:36 Rouleaux Not Reportable 08/04/19 13:36 Hemoglobin C Crystals Not Reportable 08/04/19 13:36 Schistocytes Not Reportable 08/04/19 13:36 Malaria parasites Not Reportable 08/04/19 13:36 João Bodies Not Reportable 08/04/19 13:36 Hem Pathologist Commnt No 08/04/19 13:36 PT 17.6 Sec. (12.2-14.9) H 08/04/19 13:36 INR 1.48 (0.87-1.13) H 08/04/19 13:36 APTT 31.0 Sec. (24.2-36.6) 08/04/19 13:36 D-Dimer 1574.23 ng/mlDDU (0-234) H 08/04/19 13:36 D-Dimer 1612.79 ng/mlDDU (0-234) H 08/04/19 13:36 Sodium 139 mmol/L (137-145) 08/05/19 05:15 Potassium 4.3 mmol/L (3.6-5.0) 08/05/19 05:15 Chloride 96.2 mmol/L (98-107) L 08/05/19 05:15 Carbon Dioxide 21 mmol/L (22-30) L 08/05/19 05:15 Anion Gap 26 mmol/L 08/05/19 05:15 BUN 55 mg/dL (9-20) H 08/05/19 05:15 Creatinine 7.7 mg/dL (0.8-1.5) H 08/05/19 05:15 Estimated GFR 7 ml/min 08/05/19 05:15 BUN/Creatinine Ratio 7 % 08/05/19 05:15 Glucose 169 mg/dL (75-100) H 08/05/19 05:15 Calcium 8.2 mg/dL (8.4-10.2) L 08/05/19 05:15 Magnesium 2.30 mg/dL (1.7-2.3) 08/04/19 13:36 Ferritin > 2000.0 ng/mL (13.0-400.0) H 08/04/19 13:36 Total Bilirubin 0.30 mg/dL (0.1-1.2) 08/05/19 05:15 AST 7 units/L (5-40) 08/05/19 05:15 ALT < 5 units/L (7-56) L 08/05/19 05:15 Alkaline Phosphatase 87 units/L (35-129) 08/05/19 05:15 Lactate Dehydrogenase 221 units/L (91-180) H 08/04/19 13:36 Lactate Dehydrogenase 236 units/L (91-180) H 08/04/19 13:36 Total Creatine Kinase 31 units/L (55-170) L 08/04/19 13:36 Troponin T 0.344 ng/mL (0.00-0.029) H* 08/04/19 13:36 C-Reactive Protein 16.40 mg/dL (0.00-1.30) H 08/04/19 13:36 C-Reactive Protein 16.80 mg/dL (0.00-1.30) H 08/04/19 13:36 NT-Pro-B Natriuret Pep 80883 pg/mL (0-900) H 08/04/19 13:36 Total Protein 5.8 g/dL (6.3-8.2) L 08/05/19 05:15 Albumin 2.8 g/dL (3.9-5) L 08/05/19 05:15 Albumin/Globulin Ratio 0.9 % 08/05/19 05:15 Procalcitonin 7.29 ng/mL (<0.15) 08/04/19 13:36 Coronavirus (PCR) Negative (Negative) 08/05/19 Unknown Hepatitis A IgM Ab Non-reactive (NonReactive) 08/04/19 13:36 Hep Bs Antigen Non-reactive (Negative) 08/04/19 13:36 Hep B Core IgM Ab Non-reactive (NonReactive) 08/04/19 13:36 Hepatitis C Antibody Non-reactive (NonReactive) 08/04/19 13:36 Microbiology: Microbiology 08/04/19 13:36 Peripheral/Venous Blood Culture - Preliminary NO GROWTH AFTER 24 HOURS 08/04/19 13:36 Peripheral/Venous Blood Culture - Preliminary NO GROWTH AFTER 24 HOURS Active Medications - Current Medications Current Medications: Generic Name Dose Route Start Last Admin Trade Name Freq PRN Reason Stop Dose Admin Acetaminophen 650 mg 08/04/19 15:10 Tylenol PO Q4H PRN Pain, Mild (1-3) Calcium Acetate 667 mg 08/04/19 18:00 08/05/19 08:25 Phoslo PO 667 mg Q6HR [facility] Administration Cholestyramine Resin 4 gm 08/05/19 10:00 Questran PO QDAY [facility] Diphenhydramine HCl 25 mg 08/04/19 15:11 Benadryl PO Q12H PRN Itching Diphenoxylate HCl/Atropine 1 tab 08/04/19 15:16 Lomotil PO Q6H PRN Diarrhea Folic Acid 1 mg 08/05/19 10:00 Folvite PO DAILY [facility] Glucagon 1 mg 08/04/19 15:00 08/04/19 16:08 Glucagen IM 1 mg Q24H [facility] Administration Heparin Sodium (Porcine) 5,000 unit 08/04/19 22:00 08/04/19 21:56 Heparin SUB-Q 5,000 unit Q12HR [facility] Administration Metronidazole 500 mg in 100 mls @ 100 mls/hr 08/04/19 15:00 08/05/19 08:25 Flagyl 500 Mg/100 Ml IV 100 mls/hr Q8H [facility] Administration Protocol Levofloxacin/Dextrose 500 mg in 100 mls @ 66.667 mls/hr 08/06/19 10:00 Levaquin 500mg/100ml IV Q48H [facility] Protocol Sodium Chloride 100 mls @ 999 mls/hr 08/04/19 16:18 Nacl 0.9% IV RAJEEV PRN Hypotension Sodium Chloride 100 mls @ 999 mls/hr 08/04/19 16:43 Nacl 0.9% IV RAJEEV PRN Hypotension Levothyroxine Sodium 25 mcg 08/05/19 06:00 Synthroid PO DAILY@0600 [facility] Losartan Potassium 50 mg 08/05/19 10:00 Cozaar PO QDAY [facility] Metoprolol Tartrate 25 mg 08/04/19 22:00 08/04/19 21:55 Metoprolol PO Not Given BID [facility] Mirtazapine 15 mg 08/04/19 22:00 08/04/19 21:51 Remeron PO 15 mg QHS [facility] Administration Oxycodone/Acetaminophen 1 tab 08/04/19 14:57 Percocet 5/325 PO Q6HR PRN Pain, Moderate (4-6) Sodium Chloride 10 ml 08/04/19 22:00 08/04/19 22:09 Sodium Chloride Flush Syringe 10 Ml IV 10 ml BID [facility] Administration Sodium Chloride 10 ml 08/04/19 14:53 Sodium Chloride Flush Syringe 10 Ml IV PRN PRN LINE FLUSH Thiamine HCl 100 mg 08/05/19 10:00 Vitamin B-1 PO QDAY [facility]
[2019-08-05] MEDS: LOSARTAN 50 MG TAB PO SCH (18:19)
[2019-08-05] MEDS: HEPARIN 5,000 UNIT/1 ML VIAL SUB-Q SCH ×2 (18:19→23:00)
[2019-08-05] MEDS: CHOLESTYRAMINE (WITH SUGAR) 4 GM PACKET PO SCH (18:19)
[2019-08-05] MEDS: FOLIC ACID 1 MG TAB PO SCH (18:19)
[2019-08-05] MEDS: METOPROLOL TARTRATE 25 MG TAB PO SCH (23:00)
[2019-08-05] MEDS: MIRTAZAPINE 15 MG TAB PO SCH (23:00)
[2019-08-06] MEDS: CALCIUM ACETATE 667 MG CAP PO SCH ×5 (06:50→21:19)
[2019-08-06] MEDS: LEVOTHYROXINE 25 MCG TAB PO SCH ×2 (06:50→12:08)
[2019-08-06 08:30] LABS: Basophils # (Auto) 0.1 K/mm3 (0.0-0.1); Basophils % (Auto) 0.5 % (0.0-1.8); Eosinophils # (Auto) 0.3 K/mm3 (0.0-0.4); Eosinophils % (Auto) 2.7 % (0.0-4.3); Hematocrit 28.9 % (35.5-45.6); Hemoglobin 8.9 gm/dl (11.8-15.2); Lymphocytes # (Auto) 0.6 K/mm3 (1.2-5.4); Lymphocytes % (Auto) 5.6 % (13.4-35.0); Mean Corpuscular HGB Conc 31 % (32-34); Mean Corpuscular Volume 86 fl (84-94); Monocytes # (Auto) 0.5 K/mm3 (0.0-0.8); Monocytes % (Auto) 5.1 % (0.0-7.3); Red Blood Count 3.36 M/mm3 (3.65-5.03); Red Cell Distribution Width 15.7 % (13.2-15.2)
[2019-08-06 08:37] LABS: Platelet Count 73 K/mm3 (140-440)
[2019-08-06 08:50] LABS: Albumin 2.5 g/dL (3.9-5); BUN/Creatinine Ratio 5; Blood Urea Nitrogen 24 mg/dL (9-20); Calcium 8.4 mg/dL (8.4-10.2); Hemolysis Index 19
[2019-08-06 08:53] LABS: Alanine Aminotransferase < 5 units/L (7-56)
[2019-08-06] MEDS: THIAMINE 100 MG TAB PO SCH ×2 (11:46→11:48)
[2019-08-06] MEDS: HEPARIN 5,000 UNIT/1 ML VIAL SUB-Q SCH ×2 (11:47→21:19)
[2019-08-06] MEDS: LOSARTAN 50 MG TAB PO SCH (11:47)
[2019-08-06] MEDS: METOPROLOL TARTRATE 25 MG TAB PO SCH ×3 (11:48→21:19)
[2019-08-06] MEDS: FOLIC ACID 1 MG TAB PO SCH (11:48)
[2019-08-06] MEDS: GLUCAGON (HUMAN RECOMBINANT) 1 MG/ML INJ IM SCH ×2 (12:08→15:00)
--- NOTE | 2019-08-06 12:31 | Progress Note ---
Assessment and Plan # ESRD: MWF; - daily labs - renally dose meds - avoid nephrotoxins - renal diet # Anemia:no indication for ESAs acutely # HTN: reviewed CXR, no obvious pulmonary edema. Caution with UF with HD given soft BP. Would hold home antihypertensives for now # Secondary Hyperparathyroidism: continue home binders as needed # Concern for COVID/Leukocytosis/Left Lobe Infiltrate: workup per primary/ID Subjective Date of service: 08/06/19 Principal diagnosis: esrd Interval history: resting in bed Objective - Exam Narrative Exam: Exam limited by COVID-19 crisis, limited PPE. Seen through window, chronically ill appearing, no labored breathing, on room air with good O2 sats. Soft BP noted. - Vital Signs Vital signs: Vital Signs - 12hr 08/06/19 08/06/19 08/06/19 03:59 05:44 05:45 Temperature 97.4 F L 97.4 F L Pulse Rate 83 83 Respiratory 20 Rate Blood Pressure 100/63 Blood Pressure 106/63 [Left] O2 Sat by Pulse 100 100 Oximetry 08/06/19 08/06/19 08/06/19 08:18 11:47 11:48 Temperature 99.1 F Pulse Rate 83 83 83 Respiratory 18 Rate Blood Pressure 110/56 110/56 110/56 Blood Pressure [Left] O2 Sat by Pulse 99 Oximetry - Lab 08/06/19 08:06 08/06/19 08:06 Most recent lab results Calcium 8.4 mg/dL (8.4-10.2) 08/06/19 08:06 Magnesium 2.30 mg/dL (1.7-2.3) 08/04/19 13:36 Medications & Allergies - Medications Allergies/Adverse Reactions: Allergies morphine Allergy (Verified 06/05/19 12:17) Unknown Home Medications: Home Medications Medication Instructions Recorded Confirmed Last Taken Type Benadryl CAP 25 mg PO Q12H PRN 07/08/17 08/04/19 06/07/19 21:00 History Folic Acid 1 mg PO DAILY 07/08/17 08/04/19 06/07/19 09:00 History Lomotil 2.5-0.025 mg Tablet 2.5 mg PO Q6H PRN 07/08/17 08/04/19 06/07/19 09:00 History Metoprolol Tartrate 25 mg PO Q12H 07/08/17 08/04/19 06/07/19 17:00 History Phoslo 1 tab PO Q6H 07/08/17 08/04/19 06/07/19 17:00 History Remeron 15 mg PO QHS 07/08/17 08/04/19 06/08/19 History Synthroid 25 mcg PO QAM 07/08/17 08/04/19 06/07/19 09:00 History Thiamine HCl 100 mg PO DAILY 07/08/17 08/04/19 06/07/19 09:00 History l Acidophil/B Lactis/B Longum 1 cap PO BID PRN #0 07/08/17 08/04/19 06/07/19 17:00 History Cholestyramine/Aspartame 1 packet PO QDAY 02/17/19 08/04/19 06/07/19 09:00 History [Cholestyramine Light Powder] Acetaminophen TAB 650 mg PO Q4H PRN MDD 4 gm 03/27/19 08/04/19 06/07/19 09:00 History Losartan Potassium 50 mg PO DAILY 03/27/19 08/04/19 06/07/19 09:00 History oxyCODONE /ACETAMINOPHEN [Percocet 1 tab PO Q6HR PRN #24 tablet 06/08/19 08/04/19 Unknown Rx 5/325 mg] Glucagon (Human Recomb) [Glucagen] 1 mg IM Q24H 06/11/19 08/04/19 Unknown History Insulin Glargine,Hum.rec.anlog 36 unit SQ HS 06/11/19 08/04/19 Unknown History [Basaglar Kwikpen U-100] Insulin Lispro [Humalog 100 0 units SQ AC 06/11/19 08/04/19 Unknown History UNITS/ML Kwikpen] Lispro Insulin [HumaLOG] 0 unit SUB-Q ACHS units 06/12/19 08/04/19 Unknown Rx oxyCODONE /ACETAMINOPHEN [Percocet 1 tab PO Q6HR PRN #20 tablet 06/12/19 08/04/19 Unknown Rx 5/325] Active Medications: Generic Name Dose Route Start Last Admin Trade Name Freq PRN Reason Stop Dose Admin Acetaminophen 650 mg 08/04/19 15:10 Tylenol PO Q4H PRN Pain, Mild (1-3) Calcium Acetate 667 mg 08/04/19 18:00 08/06/19 12:09 Phoslo PO Not Given Q6HR [facility] Cholestyramine Resin 4 gm 08/05/19 10:00 08/05/19 18:19 Questran PO 4 gm QDAY [facility] Administration Diphenhydramine HCl 25 mg 08/04/19 15:11 Benadryl PO Q12H PRN Itching Diphenoxylate HCl/Atropine 1 tab 08/04/19 15:16 08/05/19 23:42 Lomotil PO 1 tab Q6H PRN Administration Diarrhea Epoetin Jf 20,000 unit 08/06/19 13:00 Procrit IV RAJEEV PRN hemodialysis Folic Acid 1 mg 08/05/19 10:00 08/06/19 11:48 Folvite PO 1 mg DAILY [facility] Administration Glucagon 1 mg 08/04/19 15:00 08/06/19 12:08 Glucagen IM Not Given Q24H [facility] Heparin Sodium (Porcine) 5,000 unit 08/04/19 22:00 08/06/19 11:47 Heparin SUB-Q 5,000 unit Q12HR [facility] Administration Metronidazole 500 mg in 100 mls @ 100 mls/hr 08/04/19 15:00 08/05/19 23:41 Flagyl 500 Mg/100 Ml IV 100 mls/hr Q8H [facility] Administration Protocol Levofloxacin/Dextrose 500 mg in 100 mls @ 66.667 mls/hr 08/06/19 10:00 08/06/19 11:44 Levaquin 500mg/100ml IV 66.667 mls/hr Q48H [facility] Administration Protocol Sodium Chloride 100 mls @ 999 mls/hr 08/04/19 16:18 Nacl 0.9% IV RAJEEV PRN Hypotension Sodium Chloride 100 mls @ 999 mls/hr 08/04/19 16:43 Nacl 0.9% IV RAJEEV PRN Hypotension Levothyroxine Sodium 25 mcg 08/05/19 06:00 08/06/19 12:08 Synthroid PO Not Given DAILY@0600 [facility] Losartan Potassium 50 mg 08/05/19 10:00 08/06/19 11:47 Cozaar PO 50 mg QDAY [facility] Administration Metoprolol Tartrate 25 mg 08/04/19 22:00 08/06/19 12:08 Metoprolol PO Not Given BID [facility] Mirtazapine 15 mg 08/04/19 22:00 08/05/19 23:00 Remeron PO 15 mg QHS [facility] Administration Oxycodone/Acetaminophen 1 tab 08/04/19 14:57 Percocet 5/325 PO Q6HR PRN Pain, Moderate (4-6) Sodium Chloride 10 ml 08/04/19 22:00 08/06/19 12:08 Sodium Chloride Flush Syringe 10 Ml IV Not Given BID [facility] Sodium Chloride 10 ml 08/04/19 14:53 08/05/19 18:20 Sodium Chloride Flush Syringe 10 Ml IV 10 ml PRN PRN Administration LINE FLUSH Thiamine HCl 100 mg 08/05/19 10:00 08/06/19 11:48 Vitamin B-1 PO 100 mg QDAY [facility] Administration
[2019-08-06] MEDS ORDERED: EPOETIN ALFA 20,000 UNIT/1 ML INJ IV PRN (13:00)
[2019-08-06] MEDS: metroNIDAZOLE/NS 500 MG/100 ML 500 MG/100 ML BAG IV SCH ×3 (13:29→22:59)
[2019-08-06] MEDS: CHOLESTYRAMINE (WITH SUGAR) 4 GM PACKET PO SCH (18:36)
[2019-08-06] MEDS: MIRTAZAPINE 15 MG TAB PO SCH (21:19)
[2019-08-07] MEDS: LEVOTHYROXINE 25 MCG TAB PO SCH (05:30)
[2019-08-07] MEDS: CALCIUM ACETATE 667 MG CAP PO SCH ×3 (07:30→17:31)
--- NOTE | 2019-08-07 08:57 | Progress Note ---
Assessment and Plan # ESRD: MWF; - daily labs - renally dose meds - avoid nephrotoxins - renal diet # Anemia:no indication for ESAs acutely # HTN: reviewed CXR, no obvious pulmonary edema. Caution with UF with HD given soft BP. Would hold home antihypertensives for now # Secondary Hyperparathyroidism: continue home binders as needed # Concern for COVID/Leukocytosis/Left Lobe Infiltrate: workup per primary/ID Subjective Date of service: 08/07/19 Principal diagnosis: esrd Interval history: resting in bed Objective - Exam Narrative Exam: Exam limited by COVID-19 crisis, limited PPE. Seen through window, chronically ill appearing, no labored breathing, on room air with good O2 sats. Soft BP noted. - Vital Signs Vital signs: Vital Signs - 12hr 08/06/19 08/07/19 08/07/19 23:35 00:00 03:59 Temperature 98.0 F 98.0 F Pulse Rate 82 83 82 Respiratory 19 18 Rate Blood Pressure 111/60 119/64 O2 Sat by Pulse 89 91 Oximetry 08/07/19 08:44 Temperature 97.9 F Pulse Rate 85 Respiratory 18 Rate Blood Pressure 113/68 O2 Sat by Pulse 95 Oximetry - Lab 08/06/19 08:06 08/06/19 08:06 Most recent lab results Calcium 8.4 mg/dL (8.4-10.2) 08/06/19 08:06 Magnesium 2.30 mg/dL (1.7-2.3) 08/04/19 13:36 Medications & Allergies - Medications Allergies/Adverse Reactions: Allergies morphine Allergy (Verified 06/05/19 12:17) Unknown Home Medications: Home Medications Medication Instructions Recorded Confirmed Last Taken Type Benadryl CAP 25 mg PO Q12H PRN 07/08/17 08/04/19 06/07/19 21:00 History Folic Acid 1 mg PO DAILY 07/08/17 08/04/19 06/07/19 09:00 History Lomotil 2.5-0.025 mg Tablet 2.5 mg PO Q6H PRN 07/08/17 08/04/19 06/07/19 09:00 History Metoprolol Tartrate 25 mg PO Q12H 07/08/17 08/04/19 06/07/19 17:00 History Phoslo 1 tab PO Q6H 07/08/17 08/04/1906/06/20 17:00 History Remeron 15 mg PO QHS 07/08/17 08/04/19 06/08/19 History Synthroid 25 mcg PO QAM 07/08/17 08/04/19 06/07/19 09:00 History Thiamine HCl 100 mg PO DAILY 07/08/17 08/04/19 06/07/19 09:00 History l Acidophil/B Lactis/B Longum 1 cap PO BID PRN #0 07/08/17 08/04/19 06/07/19 17:00 History Cholestyramine/Aspartame 1 packet PO QDAY 02/17/19 08/04/19 06/07/19 09:00 History [Cholestyramine Light Powder] Acetaminophen TAB 650 mg PO Q4H PRN MDD 4 gm 03/27/19 08/04/19 06/07/19 09:00 History Losartan Potassium 50 mg PO DAILY 03/27/19 08/04/19 06/07/19 09:00 History oxyCODONE /ACETAMINOPHEN [Percocet 1 tab PO Q6HR PRN #24 tablet 06/08/19 08/04/19 Unknown Rx 5/325 mg] Glucagon (Human Recomb) [Glucagen] 1 mg IM Q24H 06/11/19 08/04/19 Unknown History Insulin Glargine,Hum.rec.anlog 36 unit SQ HS 06/11/19 08/04/19 Unknown History [Basaglar Kwikpen U-100] Insulin Lispro [Humalog 100 0 units SQ AC 06/11/19 08/04/19 Unknown History UNITS/ML Kwikpen] Lispro Insulin [HumaLOG] 0 unit SUB-Q ACHS units 06/12/19 08/04/19 Unknown Rx oxyCODONE /ACETAMINOPHEN [Percocet 1 tab PO Q6HR PRN #20 tablet 06/12/19 08/04/19 Unknown Rx 5/325] Active Medications: Generic Name Dose Route Start Last Admin Trade Name Freq PRN Reason Stop Dose Admin Acetaminophen 650 mg 08/04/19 15:10 Tylenol PO Q4H PRN Pain, Mild (1-3) Calcium Acetate 667 mg 08/06/19 16:30 08/06/19 21:19 Phoslo PO 667 mg ACHS [facility] Administration Cholestyramine Resin 4 gm 08/05/19 10:00 08/06/19 18:36 Questran PO Not Given QDAY [facility] Diphenhydramine HCl 25 mg 08/04/19 15:11 Benadryl PO Q12H PRN Itching Diphenoxylate HCl/Atropine 1 tab 08/04/19 15:16 08/05/19 23:42 Lomotil PO 1 tab Q6H PRN Administration Diarrhea Epoetin Jf 20,000 unit 08/06/19 13:00 Procrit IV RAJEEV PRN hemodialysis Folic Acid 1 mg 08/05/19 10:00 08/06/19 11:48 Folvite PO 1 mg DAILY [facility] Administration Glucagon 1 mg 08/04/19 15:00 08/06/19 15:00 Glucagen IM Not Given Q24H [facility] Heparin Sodium (Porcine) 5,000 unit 08/04/19 22:00 08/06/19 21:19 Heparin SUB-Q 5,000 unit Q12HR [facility] Administration Metronidazole 500 mg in 100 mls @ 100 mls/hr 08/04/19 15:00 08/06/19 22:59 Flagyl 500 Mg/100 Ml IV 100 mls/hr Q8H [facility] Administration Protocol Levofloxacin/Dextrose 500 mg in 100 mls @ 66.667 mls/hr 08/06/19 10:00 08/06/19 11:44 Levaquin 500mg/100ml IV 66.667 mls/hr Q48H [facility] Administration Protocol Sodium Chloride 100 mls @ 999 mls/hr 08/04/19 16:43 Nacl 0.9% IV RAJEEV PRN Hypotension Levothyroxine Sodium 25 mcg 08/05/19 06:00 08/07/19 05:30 Synthroid PO 25 mcg DAILY@0600 [facility] Administration Losartan Potassium 50 mg 08/05/19 10:00 08/06/19 11:47 Cozaar PO 50 mg QDAY [facility] Administration Metoprolol Tartrate 25 mg 08/04/19 22:00 08/06/19 21:19 Metoprolol PO Not Given BID [facility] Mirtazapine 15 mg 08/04/19 22:00 08/06/19 21:19 Remeron PO 15 mg QHS [facility] Administration Oxycodone/Acetaminophen 1 tab 08/04/19 14:57 Percocet 5/325 PO Q6HR PRN Pain, Moderate (4-6) Sodium Chloride 10 ml 08/04/19 22:00 08/06/19 21:19 Sodium Chloride Flush Syringe 10 Ml IV 10 ml BID [facility] Administration Sodium Chloride 10 ml 08/04/19 14:53 08/05/19 18:20 Sodium Chloride Flush Syringe 10 Ml IV 10 ml PRN PRN Administration LINE FLUSH Thiamine HCl 100 mg 08/05/19 10:00 08/06/19 11:48 Vitamin B-1 PO 100 mg QDAY [facility] Administration
[2019-08-07] MEDS: metroNIDAZOLE/NS 500 MG/100 ML 500 MG/100 ML BAG IV SCH ×2 (09:16→17:31)
[2019-08-07] MEDS ORDERED: GLUCAGON (HUMAN RECOMBINANT) 1 MG/ML INJ IM PRN (11:00)
[2019-08-07] MEDS ORDERED: SODIUM CHLORIDE*PRIMING MACHINE ONLY FOR DIALYSIS MC ONE (11:15)
--- NOTE | 2019-08-07 12:23 | Progress Note ---
Assessment and Plan - Patient Problems (1) Pneumonia Current Visit: Yes Status: Acute Qualifiers: Laterality: left Lung location: upper lobe of lung Plan to address problem: Pneumonia protocol: CBC, CMP, chest x-ray, supplemental oxygen, IV antibiotic therapy, blood cultures. (2) SIRS (systemic inflammatory response syndrome) Current Visit: Yes Status: Acute Plan to address problem: CBC, CMP, urinalysis, chest x-ray, IV antibiotic therapy. (3) Severe malnutrition Current Visit: Yes Status: Acute Plan to address problem: Encourage increased protein intake, dietary supplementation, supportive care. (4) Diastolic CHF Current Visit: Yes Status: Acute Qualifiers: Heart failure chronicity: chronic Qualified Code(s): I50.32 - Chronic diastolic (congestive) heart failure Plan to address problem: Strict I's/O, monitor urine output every shift, daily weight, blood pressure control, supplemental oxygen, afterload reduction. (5) Suspected 2019 novel coronavirus infection Current Visit: Yes Status: Acute Plan to address problem: Coronavirus PCR negative. (6) ESRD on hemodialysis Current Visit: Yes Status: Chronic Plan to address problem: Nephrology team consulted in ED, strict I's/O, monitor urine output every shift, daily weight, avoid nephrotoxic agents (7) DVT prophylaxis Current Visit: Yes Status: Acute Plan to address problem: SCD to bilateral lower extremities while in bed, prophylactic heparin (8) Advance care planning Current Visit: Yes Status: Acute Plan to address problem: Patient is full code, disease education conducted, +30 minutes. History Interval history: 53 YO Male HD #3 with Pneumonia complicated by SIRS, ESRD, Severe Malnutrition, Diastolic CHF. Coronavirus PCR Negative. No reported nursing events. No reports of fever, chills, chest pain, productive cough, recent ill contacts. Continue antibiotic therapy for pneumonia. Discharge planning in a.m. after dialysis completed. No reported nursing events. Hospitalist Physical - Constitutional Vitals: Temp Pulse Resp BP Pulse Ox 98.5 F 92 H 22 112/56 94 08/07/19 09:50 08/07/19 12:15 08/07/19 09:50 08/07/19 12:15 08/07/19 09:50 General appearance: Present: mild distress, cachectic, disheveled - EENT Eyes: Present: PERRL ENT: hearing intact - Neck Neck: Present: supple - Respiratory Respiratory: bilateral: CTA - Cardiovascular Rhythm: regular Heart Sounds: Present: S1 & S2 - Extremities Extremities: no ischemia Peripheral Pulses: within normal limits - Abdominal General gastrointestinal: soft, non-tender, non-distended - Integumentary Integumentary: Present: clear, dry - Psychiatric Psychiatric: cooperative - Neurologic Neurologic: CNII-XII intact HEART Score - HEART Score Troponin: Troponin T 0.344 ng/mL (0.00-0.029) H* 08/04/19 13:36 Results - Labs CBC & Chem 7: 08/06/19 08:06 08/06/19 08:06 Labs: Laboratory Last Values WBC 10.3 K/mm3 (4.5-11.0) 08/06/19 08:06 RBC 3.36 M/mm3 (3.65-5.03) L 08/06/19 08:06 Hgb 8.9 gm/dl (11.8-15.2) L 08/06/19 08:06 Hct 28.9 % (35.5-45.6) L 08/06/19 08:06 MCV 86 fl (84-94) 08/06/19 08:06 MCH 27 pg (28-32) L 08/06/19 08:06 MCHC 31 % (32-34) L 08/06/19 08:06 RDW 15.7 % (13.2-15.2) H 08/06/19 08:06 Plt Count 73 K/mm3 (140-440) L 08/06/19 08:06 Lymph % (Auto) 5.6 % (13.4-35.0) L 08/06/19 08:06 [place] % (Auto) 5.1 % (0.0-7.3) 08/06/19 08:06 Eos % (Auto) 2.7 % (0.0-4.3) 08/06/19 08:06 Baso % (Auto) 0.5 % (0.0-1.8) 08/06/19 08:06 Lymph # 0.6 K/mm3 (1.2-5.4) L 08/06/19 08:06 [place] # 0.5 K/mm3 (0.0-0.8) 08/06/19 08:06 Eos # 0.3 K/mm3 (0.0-0.4) 08/06/19 08:06 Baso # 0.1 K/mm3 (0.0-0.1) 08/06/19 08:06 Add Manual Diff Complete 08/04/19 13:36 Total Counted 100 08/04/19 13:36 Seg Neutrophils % 86.1 % (40.0-70.0) H 08/06/19 08:06 Seg Neuts % (Manual) 87.0 % (40.0-70.0) H 08/04/19 13:36 Band Neutrophils % 1.0 % 08/04/19 13:36 Lymphocytes % (Manual) 8.0 % (13.4-35.0) L 08/04/19 13:36 Reactive Lymphs % (Man) 0 % 08/04/19 13:36 Monocytes % (Manual) 2.0 % (0.0-7.3) 08/04/19 13:36 Eosinophils % (Manual) 2.0 % (0.0-4.3) 08/04/19 13:36 Basophils % (Manual) 0 % (0.0-1.8) 08/04/19 13:36 Metamyelocytes % 0 % 08/04/19 13:36 Myelocytes % 0 % 08/04/19 13:36 Promyelocytes % 0 % 08/04/19 13:36 Blast Cells % 0 % 08/04/19 13:36 Nucleated RBC % Not Reportable 08/04/19 13:36 Seg Neutrophils # 8.9 K/mm3 (1.8-7.7) H 08/06/19 08:06 Seg Neutrophils # Man 15.1 K/mm3 (1.8-7.7) H 08/04/19 13:36 Band Neutrophils # 0.2 K/mm3 08/04/19 13:36 Lymphocytes # (Manual) 1.4 K/mm3 (1.2-5.4) 08/04/19 13:36 Abs React Lymphs (Man) 0.0 K/mm3 08/04/19 13:36 Monocytes # (Manual) 0.3 K/mm3 (0.0-0.8) 08/04/19 13:36 Eosinophils # (Manual) 0.3 K/mm3 (0.0-0.4) 08/04/19 13:36 Basophils # (Manual) 0.0 K/mm3 (0.0-0.1) 08/04/19 13:36 Metamyelocytes # 0.0 K/mm3 08/04/19 13:36 Myelocytes # 0.0 K/mm3 08/04/19 13:36 Promyelocytes # 0.0 K/mm3 08/04/19 13:36 Blast Cells # 0.0 K/mm3 08/04/19 13:36 WBC Morphology Not Reportable 08/04/19 13:36 Hypersegmented Neuts Not Reportable 08/04/19 13:36 Hyposegmented Neuts Not Reportable 08/04/19 13:36 Hypogranular Neuts Not Reportable 08/04/19 13:36 Smudge Cells Not Reportable 08/04/19 13:36 Toxic Granulation Not Reportable 08/04/19 13:36 Toxic Vacuolation Not Reportable 08/04/19 13:36 Dohle Bodies Not Reportable 08/04/19 13:36 Pelger-Huet Anomaly Not Reportable 08/04/19 13:36 Reyes Rods Not Reportable 08/04/19 13:36 Platelet Estimate Consistent w auto 08/04/19 13:36 Clumped Platelets Not Reportable 08/04/19 13:36 Plt Clumps, EDTA Not Reportable 08/04/19 13:36 Large Platelets Not Reportable 08/04/19 13:36 Giant Platelets Not Reportable 08/04/19 13:36 Platelet Satelliting Not Reportable 08/04/19 13:36 Plt Morphology Comment Not Reportable 08/04/19 13:36 RBC Morphology Not Reportable 08/04/19 13:36 Dimorphic RBCs Not Reportable 08/04/19 13:36 Polychromasia Not Reportable 08/04/19 13:36 Hypochromasia Not Reportable 08/04/19 13:36 Poikilocytosis 1+ 08/04/19 13:36 Anisocytosis 1+ 08/04/19 13:36 Microcytosis Not Reportable 08/04/19 13:36 Macrocytosis Not Reportable 08/04/19 13:36 Spherocytes Not Reportable 08/04/19 13:36 Pappenheimer Bodies Not Reportable 08/04/19 13:36 Sickle Cells Not Reportable 08/04/19 13:36 Target Cells Not Reportable 08/04/19 13:36 Tear Drop Cells Not Reportable 08/04/19 13:36 Ovalocytes 1+ 08/04/19 13:36 Helmet Cells Not Reportable 08/04/19 13:36 [place] Bodies Not Reportable 08/04/19 13:36 [place] Rings Not Reportable 08/04/19 13:36 [place] Cells Not Reportable 08/04/19 13:36 Bite Cells Not Reportable 08/04/19 13:36 Crenated Cell Not Reportable 08/04/19 13:36 Elliptocytes Few 08/04/19 13:36 Acanthocytes (Spur) Not Reportable 08/04/19 13:36 Rouleaux Not Reportable 08/04/19 13:36 Hemoglobin C Crystals Not Reportable 08/04/19 13:36 Schistocytes Not Reportable 08/04/19 13:36 Malaria parasites Not Reportable 08/04/19 13:36 João Bodies Not Reportable 08/04/19 13:36 Hem Pathologist Commnt No 08/04/19 13:36 PT 17.6 Sec. (12.2-14.9) H 08/04/19 13:36 INR 1.48 (0.87-1.13) H 08/04/19 13:36 APTT 31.0 Sec. (24.2-36.6) 08/04/19 13:36 D-Dimer 1574.23 ng/mlDDU (0-234) H 08/04/19 13:36 D-Dimer 1612.79 ng/mlDDU (0-234) H 08/04/19 13:36 Sodium 135 mmol/L (137-145) L 08/06/19 08:06 Potassium 3.7 mmol/L (3.6-5.0) 08/06/19 08:06 Chloride 98.4 mmol/L (98-107) 08/06/19 08:06 Carbon Dioxide 24 mmol/L (22-30) 08/06/19 08:06 Anion Gap 16 mmol/L 08/06/19 08:06 BUN 24 mg/dL (9-20) H 08/06/19 08:06 Creatinine 4.7 mg/dL (0.8-1.5) H 08/06/19 08:06 Estimated GFR 13 ml/min 08/06/19 08:06 BUN/Creatinine Ratio 5 % 08/06/19 08:06 Glucose 176 mg/dL (75-100) H 08/06/19 08:06 POC Glucose 296 (70-105) H 08/05/19 22:35 Calcium 8.4 mg/dL (8.4-10.2) 08/06/19 08:06 Magnesium 2.30 mg/dL (1.7-2.3) 08/04/19 13:36 Ferritin > 2000.0 ng/mL (13.0-400.0) H 08/04/19 13:36 Total Bilirubin 0.40 mg/dL (0.1-1.2) 08/06/19 08:06 AST 7 units/L (5-40) 08/06/19 08:06 ALT < 5 units/L (7-56) L 08/06/19 08:06 Alkaline Phosphatase 81 units/L (35-129) 08/06/19 08:06 Lactate Dehydrogenase 221 units/L (91-180) H 08/04/19 13:36 Lactate Dehydrogenase 236 units/L (91-180) H 08/04/19 13:36 Total Creatine Kinase 31 units/L (55-170) L 08/04/19 13:36 Troponin T 0.344 ng/mL (0.00-0.029) H* 08/04/19 13:36 C-Reactive Protein 16.40 mg/dL (0.00-1.30) H 08/04/19 13:36 C-Reactive Protein 16.80 mg/dL (0.00-1.30) H 08/04/19 13:36 NT-Pro-B Natriuret Pep 04719 pg/mL (0-900) H 08/04/19 13:36 Total Protein 5.9 g/dL (6.3-8.2) L 08/06/19 08:06 Albumin 2.5 g/dL (3.9-5) L 08/06/19 08:06 Albumin/Globulin Ratio 0.7 % 08/06/19 08:06 Procalcitonin 7.29 ng/mL (<0.15) 08/04/19 13:36 Coronavirus (PCR) Negative (Negative) 08/05/19 Unknown Hepatitis A IgM Ab Non-reactive (NonReactive) 08/04/19 13:36 Hep Bs Antigen Non-reactive (Negative) 08/04/19 13:36 Hep B Core IgM Ab Non-reactive (NonReactive) 08/04/19 13:36 Hepatitis C Antibody Non-reactive (NonReactive) 08/04/19 13:36 Microbiology: Microbiology 08/04/19 13:36 Peripheral/Venous Blood Culture - Preliminary NO GROWTH AFTER 48 HOURS 08/04/19 13:36 Peripheral/Venous Blood Culture - Preliminary NO GROWTH AFTER 48 HOURS Kumar/IV: Voiding Method Incontinent IV Catheter Type [Left Forearm INT / Saline Lock ] Active Medications - Current Medications Current Medications: Generic Name Dose Route Start Last Admin Trade Name Freq PRN Reason Stop Dose Admin Acetaminophen 650 mg 08/04/19 15:10 Tylenol PO Q4H PRN Pain, Mild (1-3) Calcium Acetate 667 mg 08/06/19 16:30 08/07/19 12:19 Phoslo PO Not Given ACHS [facility] Cholestyramine Resin 4 gm 08/05/19 10:00 08/06/19 18:36 Questran PO Not Given QDAY MAGDALENE Diphenhydramine HCl 25 mg 08/04/19 15:11 08/07/19 11:14 Benadryl PO 25 mg Q12H PRN Administration Itching Diphenoxylate HCl/Atropine 1 tab 08/04/19 15:16 08/05/19 23:42 Lomotil PO 1 tab Q6H PRN Administration Diarrhea Epoetin Jf 20,000 unit 08/06/19 13:00 Procrit IV [id number] PRN hemodialysis Folic Acid 1 mg 08/05/19 10:00 08/06/19 11:48 Folvite PO 1 mg DAILY MAGDALENE Administration Glucagon 1 mg 08/07/19 11:00 Glucagen IM Q24H PRN BG < 60 MG/DL Heparin Sodium (Porcine) 5,000 unit 08/04/19 22:00 08/06/19 21:19 Heparin SUB-Q 5,000 unit Q12HR MAGDALENE Administration Metronidazole 500 mg in 100 mls @ 100 mls/hr 08/04/19 15:00 08/07/19 09:16 Flagyl 500 Mg/100 Ml IV 08/08/19 14:59 100 mls/hr Q8H MAGDALENE Administration Protocol Levofloxacin/Dextrose 500 mg in 100 mls @ 66.667 mls/hr 08/06/19 10:00 08/06/19 11:44 Levaquin 500mg/100ml IV 08/08/19 23:59 66.667 mls/hr Q48H MAGDALENE Administration Protocol Sodium Chloride 100 mls @ 999 mls/hr 08/04/19 16:43 Nacl 0.9% IV [id number] PRN Hypotension Levothyroxine Sodium 25 mcg 08/05/19 06:00 08/07/19 05:30 Synthroid PO 25 mcg DAILY@0600 MAGDALENE Administration Losartan Potassium 50 mg 08/05/19 10:00 08/06/19 11:47 Cozaar PO 50 mg QDAY MAGDALENE Administration Metoprolol Tartrate 25 mg 08/04/19 22:00 08/06/19 21:19 Metoprolol PO Not Given BID MAGDALENE Mirtazapine 15 mg 08/04/19 22:00 08/06/19 21:19 Remeron PO 15 mg QHS MAGDALENE Administration Oxycodone/Acetaminophen 1 tab 08/04/19 14:57 Percocet 5/325 PO Q6HR PRN Pain, Moderate (4-6) Sodium Chloride 10 ml 08/04/19 22:00 08/06/19 21:19 Sodium Chloride Flush Syringe 10 Ml IV 10 ml BID MAGDALENE Administration Sodium Chloride 10 ml 08/04/19 14:53 08/05/19 18:20 Sodium Chloride Flush Syringe 10 Ml IV 10 ml PRN PRN Administration LINE FLUSH Thiamine HCl 100 mg 08/05/19 10:00 08/06/19 11:48 Vitamin B-1 PO 100 mg QDAY MAGDALENE Administration
[2019-08-07 15:56] VITALS: BP 122/57
[2019-08-07] MEDS: FOLIC ACID 1 MG TAB PO SCH (17:26)
[2019-08-07] MEDS: HEPARIN 5,000 UNIT/1 ML VIAL SUB-Q SCH (17:26)
[2019-08-07] MEDS: LOSARTAN 50 MG TAB PO SCH (17:26)
[2019-08-07] MEDS: METOPROLOL TARTRATE 25 MG TAB PO SCH (17:30)
[2019-08-07] MEDS: CHOLESTYRAMINE (WITH SUGAR) 4 GM PACKET PO SCH (17:30)
[2019-08-07] MEDS: THIAMINE 100 MG TAB PO SCH (17:30)
--- NOTE | 2019-09-03 11:34 | Discharge Summary ---
Providers - Providers Date of Admission: 08/04/19 14:53 Attending physician: HUSSEIN SIMMONS 08/04/19 13:01 Consult to Physician [CONS] Stat Comment: Consulting Provider: REFUGIO AYALA Physician Instructions: Reason For Exam: esrd Primary care physician: TIRE MOLD ENGRAVER Hospitalization Condition: Fair Pertinent studies: Coronavirus PCR: Negative Hospital course: 53 YO Male [facility]itent[facility] Resident at [facility] with ESRD on HD (T,R,Sa), Dementia, Severe Malnutrition, Thrombocytopenia, HTN, DM, Nicotine Dependence, Diastolic CHF, Debility presented to ED for evaluation. Patient has dementia and provided limited history. As per patient, he had experienced shortness of breath, weakness, and chest tightness over the 2 days prior to presentation with persistent symptoms over the same timeframe. EMS was notified and upon arrival the patient was found to be in distress and transported to [facility] for further care and evaluation. [facility] staff reported concerns regarding possible COVID-19 exposure. Patient seen and evaluated in the emergency department. Lab and imaging studies reviewed. Patient was found to have left upper lobe pneumonia which is consistent with aspiration pneumonia, end-stage renal disease, systemic inflammatory response syndrome. Patient initiated on COVID-19 protocol in the emergency department. Patient admitted to [facility] and initiated on pneumonia protocol due to increased risk for pulmonary decompensation. No reports of fever, chills, CP, palpitations, NVD, productive cough. Nephrology consulted in ED. Advanced care planning conducted in ED. prior admission on 06/11/2019 reviewed. Patient convalesced well during hospital course. Patient symptoms improved with the aforementioned treatment protocols. Patient coronavirus PCR was negative. Patient coronavirus protocol was discontinued during hospital course. Patient treated with serial routine dialysis with improvement in symptoms. On the day of the discharge the patient has been medically optimized and back to usual state of health. Patient discharged to care home [facility]. Patient to follow-up with primary care physician within 3 to 5 days and to resume outpatient dialysis as per nephrology recommendations. 35 minutes dedicated to patient discharge and coordination of care. Disposition: / SNF W [facility] CERT - Discharge Diagnoses (1) Pneumonia Status: Acute Qualifiers: Laterality: left Lung location: upper lobe of lung (2) SIRS (systemic inflammatory response syndrome) Status: Acute (3) Severe malnutrition Status: Acute (4) Diastolic CHF Status: Acute Qualifiers: Heart failure chronicity: chronic Qualified Code(s): I50.32 - Chronic diastolic (congestive) heart failure (5) Suspected 2019 novel coronavirus infection Status: Acute (6) ESRD on hemodialysis Status: Chronic (7) DVT prophylaxis Status: Acute (8) Advance care planning Status: Acute Core Measure Documentation - Palliative Care Palliative Care/ Comfort Measures: Not Applicable - Core Measures Any of the following diagnoses?: none Exam - Constitutional Vitals: Temp Pulse Resp BP Pulse Ox 98.2 F 88 18 122/57 94 08/07/19 15:55 08/07/19 15:55 08/07/19 15:55 08/07/19 15:55 08/07/19 15:55 General appearance: Present: cachectic - EENT Eyes: Present: PERRL ENT: hearing intact, clear oral mucosa - Neck Neck: Present: supple, normal ROM - Respiratory Respiratory effort: normal Respiratory: bilateral: CTA - Cardiovascular Heart Sounds: Present: S1 & S2. Absent: rub, click - Extremities Extremities: pulses symmetrical, No edema Peripheral Pulses: within normal limits - Abdominal General gastrointestinal: Present: soft, non-tender, non-distended, normal bowel sounds Male genitourinary: Present: normal - Integumentary Integumentary: Present: clear, warm, dry - Musculoskeletal Musculoskeletal: generalized weakness - Psychiatric Psychiatric: appropriate mood/affect, intact judgment & insight - Neurologic Neurologic: CNII-XII intact, moves all extremities Plan Activity: advance as tolerated Diet: advance as tolerated Follow up with: PRIMARY CARE, [Primary Care Provider] - 3-5 Days Prescriptions: levoFLOXacin [Levaquin] 250 mg PO QDAY #7 tablet
== END 2019-08-07 17:50 | DRG 193 ==
LOC: ED 12:31 → IMCU 14:53 → 4A 08-05 18:40
PROVIDERS: ADMIT Internal Medicine; ATTEND Internal Medicine
PROC: 5A1D70Z Performance of Urinary Filtration, Intermittent, Less than 6 Hours Per Day (ICD-10-PCS; 2019-08-05)
PROC: 5A1D70Z Performance of Urinary Filtration, Intermittent, Less than 6 Hours Per Day (ICD-10-PCS; principal; 2019-08-07)
DX: J18.9 Pneumonia, unspecified organism (principal); N18.6 End stage renal disease; E43 Unspecified severe protein-calorie malnutrition; I50.32 Chronic diastolic (congestive) heart failure; R65.10 Systemic inflammatory response syndrome (SIRS) of non-infectious origin without acute organ dysfunction; I13.2 Hypertensive heart and chronic kidney disease with heart failure and with stage 5 chronic kidney disease, or end stage renal disease; N25.81 Secondary hyperparathyroidism of renal origin; Z68.1 Body mass index [BMI] 19.9 or less, adult; F03.90 Unspecified dementia, unspecified severity, without behavioral disturbance, psychotic disturbance, mood disturbance, and anxiety; E11.22 Type 2 diabetes mellitus with diabetic chronic kidney disease; Z87.81 Personal history of (healed) traumatic fracture; M19.90 Unspecified osteoarthritis, unspecified site; F17.210 Nicotine dependence, cigarettes, uncomplicated; Z83.3 Family history of diabetes mellitus; Z82.49 Family history of ischemic heart disease and other diseases of the circulatory system; D64.9 Anemia, unspecified; Z03.818 Encounter for observation for suspected exposure to other biological agents ruled out; Z79.4 Long term (current) use of insulin
CPT/HCPCS: 36415; 71045; 80053; 80074; 82550; 82728; 82947; 82962; 83615; 83735; 83880; 84145; 84484; 85007; 85025; 85379; 85610; 85730; 86140; 87040; 93005; G0378; J0456; J0696; J1610; J1644; J1956; J7030; J7050; U0003-CS

== ENCOUNTER 2020-01-04 22:23 | Emergency (ER) | payer MEDICARE ==
--- NOTE | 2020-01-04 22:55 | Emergency Department Report ---
ED General Adult HPI - General Chief complaint: Medical Clearance Stated complaint: ABNORMAL LABS Time Seen by Provider: 01/04/20 22:45 Source: patient Mode of arrival: Ambulatory Limitations: No Limitations - History of Present Illness Initial comments: 54-year-old male sent from [facility] due to abnormal labs. Charge nurse called the facility and nurse states patient had platelet count of 10. Patient was apparently recently discharged from outside hospital 2 days ago, according to the nurse at [facility] Nurse is unsure what the admission was for. Patient is on dialysis, with a schedule. States patient was not dialyzed on Saturday, 2 days ago, due to issues with his access. -: unknown - Related Data Allergies Allergy/AdvReac Type Severity Reaction Status Date / Time No Known Allergies Allergy Unverified 01/04/20 22:54 ED Review of Systems ROS: Stated complaint: ABNORMAL LABS Other details as noted in HPI ED Past Medical Hx - Past Medical History Previous Medical History?: Yes Hx Diabetes: Yes Hx Psychiatric Treatment: Yes (major depressive disorder) Additional medical history: ETOH,Anemia,Bacteremia,cataract,Dysphagia,Edema ,myopathy, Osteomyelitis, lack of coordination - Social History Smoking Status: Former Smoker Substance Use Type: None ED Physical Exam - General Limitations: No Limitations General appearance: alert, in no apparent distress - Head Head exam: Present: atraumatic, normocephalic - Eye Eye exam: Present: normal appearance, EOMI - ENT ENT exam: Present: mucous membranes moist - Neck Neck exam: Present: normal inspection - Respiratory Respiratory exam: Present: normal lung sounds bilaterally. Absent: respiratory distress - Cardiovascular Cardiovascular Exam: Present: regular rate, normal rhythm - GI/Abdominal GI/Abdominal exam: Present: soft. Absent: distended, tenderness - Extremities Exam Extremities exam: Present: other (4+ pitting edema to extremities) - Neurological Exam Neurological exam: Present: alert - Psychiatric Psychiatric exam: Present: normal affect, normal mood - Skin Skin exam: Present: ecchymosis ED Course - Reevaluation(s) Reevaluation #1: 01/07/20 07:52 Patient visit occurred during [facility] downtime. CBC resulted with platelet count of 24. When patient was here in September 2019, he had platelet count of 27. Patient had no active bleeding, therefore no indication for platelet transfusion. Potassium was also within normal limits, no breathing difficulty or hypoxia, therefore no indication for emergent dialysis. Patient was discharged back to his [facility]. ED Medical Decision Making - Lab Data Result diagrams: 01/04/20 23:12 Critical care attestation.: If time is entered above; I have spent that time in minutes in the direct care of this critically ill patient, excluding procedure time. ED Disposition Clinical Impression: Thrombocytopenia Disposition: DC-01 TO HOME OR SELFCARE Is pt being admited?: No Condition: Stable Referrals: PRIMARY CARE, [Primary Care Provider] - 3-5 Days
[2020-01-05 18:29] LABS: Calcium 7.8 mg/dL (8.4-10.2)
== END 2020-01-04 22:53 | disposition home or self-care (01) ==
LOC: MERGE 22:23 → ED 22:23
DX: D69.6 Thrombocytopenia, unspecified (principal); E11.9 Type 2 diabetes mellitus without complications; D64.9 Anemia, unspecified; F32.9 Major depressive disorder, single episode, unspecified; Z87.891 Personal history of nicotine dependence
CPT/HCPCS: 80048; 99283

== ENCOUNTER 2020-01-05 19:43 | Inpatient (IN) | payer MEDICARE ==
--- NOTE | 2020-01-05 20:22 | Emergency Department Report ---
HPI - General Time Seen by Provider: 01/05/20 20:05 - HPI HPI: This is a 54-year-old male who presents to the emergency department via EMS from his [facility] longterm facility with the alleged complaint of shortness of breath. Patient was here yesterday for evaluation of low platelets and need for dialysis. The EMR system was down for maintenance of there are no current r ecords in the EMR and the paper records have not yet made their way to medical records. Apparently the patient's platelets at that time were higher than usual, there was no need for emergent dialysis, and the patient was discharged home. [facility] facility says the patient had low blood pressure and low oxygen. However EMS did not find the patient to have abnormal vitals. The patient has a past medical history that includes hypertension, end-stage renal disease on hemodialysis, insulin-dependent diabetes, hypothyroidism, cirrhosis of the liver, thrombocytopenia, hyperlipidemia, cognitive communication deficit, generalized muscle weakness. The patient himself is a poor historian and his only complaint at this time is pain to the tailbone from what I believe is a sacral decubitus ulcer. Previous records show that the patient gets dialysis on Saturday//Saturday at [facility] in [place]. His primary care physician is listed as Dr. Moris King. ED Past Medical Hx - Past Medical History Hx Hypertension: Yes Hx Heart Attack/AMI: No Hx Congestive Heart Failure: No Hx Diabetes: Yes Hx Deep Vein Thrombosis: No Hx Pulmonary Embolism: No Hx Liver Disease: No Hx Renal Disease: No Hx Sickle Cell Disease: No Hx Arthritis: Yes Hx Seizures: No Hx Kidney Stones: No Hx Asthma: No Hx COPD: No Hx Tuberculosis: No Hx Dementia: Yes (AMS) Hx HIV: (UNKNOWN) Additional medical history: unable to walk due to weak leg muscles - Surgical History Hx Coronary Stent: No Hx Open Heart Surgery: No Hx Pacemaker: No Hx Internal Defibrillator: No Hx Breast Surgery: No Additional Surgical History: vas cath to right chest wall - Social History Smoking Status: Unknown if ever smoked - Medications Home Medications: Home Medications Medication Instructions Recorded Confirmed Last Taken Type Benadryl CAP 25 mg PO Q12H PRN 07/08/17 10/24/19 06/07/19 21:00 History Folic Acid 1 mg PO DAILY 07/08/17 10/24/19 06/07/19 09:00 History Lomotil 2.5-0.025 mg Tablet 2.5 mg PO Q6H PRN 07/08/17 10/24/19 06/07/19 09:00 History Metoprolol Tartrate 25 mg PO Q12H 07/08/17 10/24/19 06/07/19 17:00 History Phoslo 1 tab PO Q6H 07/08/17 10/24/19 06/07/19 17:00 History l Acidophil/B Lactis/B Longum 1 cap PO BID PRN #0 07/08/17 10/24/19 06/07/19 17:00 History Cholestyramine/Aspartame 1 packet PO QDAY 02/17/19 10/24/19 06/07/19 09:00 History [Cholestyramine Light Powder] Acetaminophen TAB 650 mg PO Q4H PRN MDD 4 gm 03/27/19 10/24/19 06/07/19 09:00 H istory Losartan Potassium 50 mg PO DAILY 03/27/19 10/24/19 06/07/19 09:00 History oxyCODONE /ACETAMINOPHEN [Percocet 1 tab PO Q6HR PRN #24 tablet 06/08/19 10/24/19 Unknown Rx 5/325 mg] Insulin Glargine,Hum.rec.anlog 36 unit SQ HS 06/11/19 10/24/19 Unknown History [Basaglar Ferikpen U-100] Lispro Insulin [HumaLOG] 0 unit SUB-Q ACHS units 06/12/19 10/24/19 Unknown Rx oxyCODONE /ACETAMINOPHEN [Percocet 1 tab PO Q6HR PRN #20 tablet 06/12/19 10/24/19 Unknown Rx 5/325 mg] Calcium Acetate [Phoslo] 667 mg PO WMHS capsule 10/26/19 Unknown Rx Diphenoxylate/Atropine [Lomotil] 1 tab PO Q6H PRN tablet 10/26/19 Unknown Rx Insulin Lispro [Humalog] 30 unit SUB-Q ACHS vial 10/26/19 Unknown Rx Lactobacillus Acidophil [Lactinex] 1 each PO BID PRN tab.chew 10/26/19 Unknown Rx Levothyroxine [Synthroid] 25 mcg PO DAILY@0600 tablet 10/26/19 Unknown Rx Losartan [Cozaar] 50 mg PO DAILY tablet 10/26/19 Unknown Rx Mirtazapine [Remeron 15mg TAB] 15 mg PO QHS tablet 10/26/19 Unknown Rx Thiamine [Vitamin B-1] 100 mg PO DAILY tablet 10/26/19 Unknown Rx Clindamycin [Clindamycin CAP] 300 mg PO Q8H #21 cap 11/12/19 Unknown Rx ED Review of Systems ROS: Stated complaint: RONA Other details as noted in HPI Comment: Unobtainable due to pts medical conditions Respiratory: shortness of breath Physical Exam - Physical Exam Physical Exam: GENERAL: The patient is well-developed well-nourished. HENT: Normocephalic. Atraumatic. Patient has moist mucous membranes. EYES: Extraocular motions are intact. Pupils equal reactive to light bilaterally. NECK: Supple. Trachea is midline. CHEST/LUNGS: Coarse breath sounds. No tachypnea or accessory muscle use. There is no respiratory distress noted. HEART/CARDIOVASCULAR: Regular. There is no tachycardia. There is no murmur. ABDOMEN: Abdomen is soft, nontender. Patient has normal bowel sounds. There is no abdominal distention. SKIN: All 4 of the patient's extremities are edematous. There is some intermittent ecchymosis seen. NEURO: The patient is awake, alert, and cooperative. Chronic weakness to all 4 extremities. Normal speech. MUSCULOSKELETAL: There is no tenderness to palpation. ED Course - Reevaluation(s) Reevaluation #1: 01/06/20 00:52 Lab Results 01/05/20 01/05/20 01/05/20 Range/Units 21:37 21:37 21:37 WBC 5.4 (4.5-11.0) K/mm3 RBC 3.07 L (3.65-5.03) M/mm3 Hgb 10.0 L (11.8-15.2) gm/dl Hct 31.9 L (35.5-45.6) % MCV 104 H (84-94) fl MCH 33 H (28-32) pg MCHC 31 L (32-34) % RDW 24.0 H (13.2-15.2) % Plt Count 19 L* (140-440) K/mm3 Lymph % (Auto) 7.4 L (13.4-35.0) % [place] % (Auto) 5.9 (0.0-7.3) % Eos % (Auto) 0.4 (0.0-4.3) % Baso % (Auto) 0.5 (0.0-1.8) % Lymph # (Auto) 0.4 L (1.2-5.4) K/mm3 [place] # (Auto) 0.3 (0.0-0.8) K/mm3 Eos # (Auto) 0.0 (0.0-0.4) K/mm3 Baso # (Auto) 0.0 (0.0-0.1) K/mm3 Seg Neutrophils % 85.8 H (40.0-70.0) % Seg Neutrophils # 4.7 (1.8-7.7) K/mm3 PT 13.5 (12.2-14.9) Sec. INR 1.02 (0.87-1.13) Sodium 137 (137-145) mmol/L Potassium 3.4 L (3.6-5.0) mmol/L Chloride 95.3 L (98-107) mmol/L Carbon Dioxide 26 (22-30) mmol/L Anion Gap 19 mmol/L BUN 24 H (9-20) mg/dL Creatinine 2.7 H (0.8-1.3) mg/dL Estimated GFR 25 ml/min BUN/Creatinine Ratio 9 % Glucose 184 H (75-100) mg/dL Calcium 7.9 L (8.4-10.2) mg/dL Magnesium 2.00 (1.7-2.3) mg/dL Total Bilirubin 0.80 (0.1-1.2) mg/dL AST 13 (5-40) units/L ALT < 5 L (7-56) units/L Alkaline Phosphatase 95 (35-129) units/L Total Protein 5.4 L (6.3-8.2) g/dL Albumin 3.0 L (3.9-5) g/dL Albumin/Globulin Ratio 1.3 % - EJ/Peripheral Line Arm R Time Out Performed: Yes Indications: nurses unable to establis Skin Cleansed in Sterile Fashion: Yes Size: 20 Dressing Placed: Tegaderm, tape Patient Tolerated Procedure: well ED Medical Decision Making - Lab Data Result diagrams: 01/05/20 21:37 01/05/20 21:37 - EKG Data -: EKG Interpreted by Fl EKG shows normal: sinus rhythm, axis, intervals, QRS complexes (Q waves to the septal leads, low voltage), ST-T waves Rate: normal - EKG Data When compared to previous EKG there are: no significant change Interpretation: unchanged when compared t (08/04/19) - Radiology Data Radiology results: report reviewed CHEST 1 VIEW 10:29 PM INDICATION / CLINICAL INFORMATION: SOB. COMPARISON: 10/06/19. FINDINGS: SUPPORT DEVICES: None. HEART / MEDIASTINUM: No significant abnormality. LUNGS / PLEURA: There is moderate bilateral pleuroparenchymal disease, more prominent in the mid to lower lung zones and greater on the left than the right. Only patchy subsegmental parenchymal disease bilaterally was noted previously. No pneumothorax. ADDITIONAL FINDINGS: No significant additional findings. IMPRESSION: Moderate nonspecific bilateral pleuroparenchymal disease is new. The findings appear to be predominantly related to pleural effusions. - Medical Decision Making This patient presents to the emergency department with a complaint of some shortness of breath and generalized weakness. Patient has some renal insufficiency consistent with his end-stage renal disease but he got dialyzed today. Patient does have a history of thrombocytopenia but his current level of 19,000 platelets is the lowest it has been at this facility. There are multiple areas of ecchymosis but no obvious spontaneous bleeding or hematoma. The patient will be transfused some platelets. Chest x-ray shows pleural effusions. Patient's vital signs show hypertension a nd he had a room air pulse ox of about 90%. It went up to 100% with 2 L oxygen via nasal cannula. Patient will be admitted to the hospital for further evaluation and treatment and was excepted for admission by the hospitalist, Dr. Guillen. Critical Care Time: No Critical care attestation.: If time is entered above; I have spent that time in minutes in the direct care of this critically ill patient, excluding procedure time. ED Disposition Clinical Impression: Severe thrombocytopenia, ESRD on hemodialysis, Pleural effusion Hypertension Qualifiers: Hypertension type: essential hypertension Qualified Code(s): I10 - Essential (primary) hypertension Disposition: OP ADMIT IP TO THIS HOSP Is pt being admited?: Yes Condition: Fair Time of Disposition: 23:18
[2020-01-05 21:44] LABS: Basophils % (Auto) 0.5 % (0.0-1.8); Eosinophils % (Auto) 0.4 % (0.0-4.3); Hematocrit 31.9 % (35.5-45.6); Lymphocytes # (Auto) 0.4 K/mm3 (1.2-5.4); Lymphocytes % (Auto) 7.4 % (13.4-35.0); Mean Corpuscular HGB Conc 31 % (32-34); Mean Corpuscular Volume 104 fl (84-94); Monocytes # (Auto) 0.3 K/mm3 (0.0-0.8); Monocytes % (Auto) 5.9 % (0.0-7.3); Red Blood Count 3.07 M/mm3 (3.65-5.03)
[2020-01-05 21:56] LABS: INR 1.02 (0.87-1.13); Platelet Count 19 K/mm3 (140-440)
[2020-01-05 22:06] LABS: BUN/Creatinine Ratio 9; Blood Urea Nitrogen 24 mg/dL (9-20); Calcium 7.9 mg/dL (8.4-10.2); Hemolysis Index 22
[2020-01-05 22:08] LABS: Alanine Aminotransferase < 5 units/L (7-56)
[2020-01-05] MEDS ORDERED: HYDROmorphone 1 MG/1 ML INJ IV ONE (22:50)
[2020-01-05] MEDS ORDERED: SODIUM CHLORIDE 0.9% 500 ML 500 ML IV ONE (22:52)
[2020-01-05] MEDS ORDERED: HYDROmorphone 1 MG/1 ML INJ ONE (22:54)
[2020-01-05] MEDS ORDERED: MAGNESIUM HYDROXIDE (MOM) ORAL LIQD UDC PO PRN (23:31)
[2020-01-05] MEDS ORDERED: ACETAMINOPHEN 325 MG TAB PO PRN (23:31)
[2020-01-05] MEDS ORDERED: MORPHINE 2 MG/1 ML INJ IV PRN (23:31)
[2020-01-05] MEDS ORDERED: DEXTROSE 50% IN WATER (25GM) 50 ML SYRINGE IV PRN (23:31)
[2020-01-05] MEDS ORDERED: ONDANSETRON 4 MG/2 ML INJ IV PRN (23:31)
--- NOTE | 2020-01-05 23:49 | History and Physical Report ---
History of Present Illness Date of examination: 01/05/20 Date of admission: 01/05/2020 Chief complaint: Difficulty Breathing History of present illness: 54-year-old white male resident of [facility] assisted with known history of diabetes mellitus, hypertension, cognitive deficit and end-stage renal disease on dialysis presents to the emergency room today with difficulty breathing. He was seen in the emergency room yesterday for evaluation of low platelets and also needing dialysis. Record shows that patient gets dialysis on Saturday, and Saturdays at [facility] in [place]. Patient denies any fever or chills, no chest pain or shortness of breath, no nausea vomiting and no diarrhea. Upon arrival in the emergency room blood pressure was found to be slightly elevated and platelet count was found to be 17. Patient is being prepared for platelet transfusion. Past History Past Medical History: arthritis, diabetes, dialysis, ESRD, hypertension, other (Dementia) Past Surgical History: Other (Vas Cath Placement right chest wall) Social history: no significant social history Family history: no significant family history Medications and Allergies Allergies Allergy/AdvReac Type Severity Reaction Status Date / Time morphine Allergy Unknown Verified 08/12/19 13:08 Home Medications Medication Instructions Recorded Confirmed Last Taken Type oxyCODONE /ACETAMINOPHEN [Percocet 1 tab PO Q6HR PRN #20 tablet 06/12/19 01/06/20 Unknown Rx 5/325 mg] Acetaminophen [Tylenol] 325 mg PO Q6HR PRN 01/06/20 01/06/20 Unknown History Calcium Acetate 667 mg PO TID 01/06/20 01/06/20 Unknown History Fludrocortisone [Florinef] 0.1 mg PO QDAY 01/06/20 01/06/20 Unknown History Folic Acid [Folvite] 1 mg PO QDAY 01/06/20 01/06/20 Unknown History Insulin Glargine,Hum.rec.anlog 100 unit SQ QPM 01/06/20 01/06/20 Unknown History [Zack Avina U-100] Levothyroxine Sodium [Tirosint-Thuy] 25 mcg PO QDAY 01/06/20 01/06/20 Unknown History Midodrine HCl 10 mg PO TID 01/06/20 01/06/20 Unknown History Mirtazapine Solutab [Remeron 15mg 15 mg PO QHS 01/06/20 01/06/20 Unknown History Solutab] Thiamine HCl [Vitamin B-1] 100 mg PO QDAY 01/06/20 01/06/20 Unknown History Trazodone HCl 50 mg PO QHS 01/06/20 01/06/20 Unknown History Active Meds: Active Medications Acetaminophen (Tylenol) 650 mg PO Q4H PRN PRN Reason: Pain MILD(1-3)/Fever >100.5/WONG Dextrose (D50w (25gm) Syringe) 50 ml IV Q30MIN PRN; Protocol PRN Reason: Hypoglycemia Insulin Human Lispro (Humalog) 0 unit SUB-Q ACHS MAGDALENE; Protocol Magnesium Hydroxide (Milk Of Magnesia) 30 ml PO Q4H PRN PRN Reason: Constipation Ondansetron HCl (Zofran) 4 mg IV Q8H PRN PRN Reason: Nausea And Vomiting Sodium Chloride (Sodium Chloride Flush Syringe 10 Ml) 10 ml IV BID MAGDALENE Sodium Chloride (Sodium Chloride Flush Syringe 10 Ml) 10 ml IV PRN PRN PRN Reason: LINE FLUSH Review of Systems Constitutional: no fever, no chills Ears, nose, mouth and throat: no nasal congestion, no sore throat Cardiovascular: no chest pain, no palpitations Respiratory: shortness of breath, no cough Gastrointestinal: no abdominal pain, no nausea, no vomiting, no diarrhea Genitourinary Male: no dysuria, no hematuria, no flank pain Musculoskeletal: no neck pain, no low back pain Integumentary: no rash, no pruritis Neurological: no headaches, no confusion Psychiatric: no anxiety, no depression Exam - Constitutional Vitals: Temp Pulse Resp BP Pulse Ox 97.5 F L 98 H 20 180/89 90 01/05/20 20:18 01/05/20 20:18 01/05/20 20:18 01/05/20 20:18 01/05/20 20:18 General appearance: Present: no acute distress, well-nourished, other (Dry oral mucosa) - EENT Eyes: Present: PERRL, EOM intact. Absent: scleral icterus ENT: hearing intact, clear oral mucosa, dentition normal - Neck Neck: Present: supple, normal ROM - Respiratory Respiratory effort: normal Respiratory: bilateral: CTA - Cardiovascular Rhythm: regular Heart Sounds: Present: S1 & S2. Absent: gallop, systolic murmur, diastolic murmur, rub - Extremities Extremities: no ischemia, pulses intact, pulses symmetrical, Full ROM Extremity abnormal: edema (2+ bilateral lower extremity edema) Peripheral Pulses: within normal limits - Abdominal General gastrointestinal: Present: soft, non-tender, non-distended, normal bowel sounds. Absent: mass - Integumentary Integumentary: Present: warm, dry - Musculoskeletal Musculoskeletal: generalized weakness - Psychiatric Psychiatric: appropriate mood/affect, intact judgment & insight, memory intact, cooperative - Neurologic Neurologic: CNII-XII intact, no focal deficits, moves all extremities - Additional findings Additional findings: Skin: Areas of multiple bruises all over skin. Results - Labs CBC & Chem 7: 01/06/20 04:00 01/06/20 04:00 Labs: Abnormal lab results 01/05/20 01/05/20 Range/Units 21:37 21:37 RBC 3.07 L (3.65-5.03) M/mm3 Hgb 10.0 L (11.8-15.2) gm/dl Hct 31.9 L (35.5-45.6) % MCV 104 H (84-94) fl MCH 33 H (28-32) pg MCHC 31 L (32-34) % RDW 24.0 H (13.2-15.2) % Plt Count 19 L* (140-440) K/mm3 Lymph % (Auto) 7.4 L (13.4-35.0) % Lymph # (Auto) 0.4 L (1.2-5.4) K/mm3 Seg Neutrophils % 85.8 H (40.0-70.0) % Potassium 3.4 L (3.6-5.0) mmol/L Chloride 95.3 L (98-107) mmol/L BUN 24 H (9-20) mg/dL Creatinine 2.7 H (0.8-1.3) mg/dL Glucose 184 H (75-100) mg/dL Calcium 7.9 L (8.4-10.2) mg/dL ALT < 5 L (7-56) units/L Total Protein 5.4 L (6.3-8.2) g/dL Albumin 3.0 L (3.9-5) g/dL Assessment and Plan - Patient Problems (1) Severe thrombocytopenia Current Visit: Yes Status: Acute Plan to address problem: Etiology unclear. Patient being prepared for platelet transfusion. We will monitor CBC. (2) ESRD on hemodialysis Current Visit: Yes Status: Chronic Plan to address problem: Consult has been placed to nephrology for for dialysis. (3) Hypertension Current Visit: Yes Status: Chronic Qualifiers: Hypertension type: essential hypertension Qualified Code(s): I10 - Essential (primary) hypertension Plan to address problem: We will resume routine home medications and monitor vital signs closely. (4) DVT prophylaxis Current Visit: No Status: Acute Plan to address problem: Patient placed on sequential compression device. (5) Full code status Current Visit: No Status: Acute
--- NOTE | 2020-01-06 00:02 | XRay Report ---
CHEST 1 VIEW 10:29 PM INDICATION / CLINICAL INFORMATION: SOB. COMPARISON: 10/06/19. FINDINGS: SUPPORT DEVICES: None. HEART / MEDIASTINUM: No significant abnormality. LUNGS / PLEURA: There is moderate bilateral pleuroparenchymal disease, more prominent in the mid to l ower lung zones and greater on the left than the right. Only patchy subsegmental parenchymal disease bilaterally was noted previously. No pneumothorax. ADDITIONAL FINDINGS: No significant additional findings. IMPRESSION: Moderate nonspecific bilateral pleuroparenchymal disease is new. The findings appear to b e predominantly related to pleural effusions. Signer Name: Mathew Ortega MD Signed: 01/05/2020 11:58 PM Workstation Name: [id number]
[2020-01-06] MEDS ORDERED: HYDROmorphone 2 MG TAB PO ONE (02:40)
[2020-01-06] MEDS ORDERED: MELATONIN 5 MG TAB PO ONE (02:50)
[2020-01-06 05:30] LABS: Basophils # (Auto) 0.1 K/mm3 (0.0-0.1); Basophils % (Auto) 1.2 % (0.0-1.8); Eosinophils % (Auto) 0.5 % (0.0-4.3); Hematocrit 28.3 % (35.5-45.6); Hemoglobin 9.2 gm/dl (11.8-15.2); Lymphocytes # (Auto) 0.6 K/mm3 (1.2-5.4); Lymphocytes % (Auto) 13.7 % (13.4-35.0); Mean Corpuscular HGB Conc 32 % (32-34); Mean Corpuscular Volume 102 fl (84-94); Monocytes # (Auto) 0.3 K/mm3 (0.0-0.8); Monocytes % (Auto) 7.5 % (0.0-7.3); Red Blood Count 2.79 M/mm3 (3.65-5.03)
[2020-01-06 05:32] LABS: Red Cell Distribution Width 23.3 % (13.2-15.2)
[2020-01-06 05:34] LABS: Platelet Count 17 K/mm3 (140-440)
[2020-01-06 05:40] LABS: INR 1.15 (0.87-1.13)
[2020-01-06 05:46] LABS: Calcium 7.8 mg/dL (8.4-10.2)
--- NOTE | 2020-01-06 09:10 | Progress Note ---
Assessment and Plan Assessment and plan: This is a 54-year-old male who presents to the emergency department via EMS from his [facility] retirement facility with the alleged complaint of shortness of breath. Patient was here yesterday for evaluation of low platelets and need for dialysis. The EMR system was down for maintenance of there are no current records in the EMR and the paper records have not yet made their way to medical records. Apparently the patient's platelets at that time were higher than usual, there was no need for emergent dialysis, and the patient was discharged home. [facility] facility says the patient had low blood pressure and low oxygen. However EMS did not find the patient to have abnormal vitals. The patient has a past medical history that includes hypertension, end-stage renal disease on hemodialysis, insulin-dependent diabetes, hypothyroidism, cirrhosis of the liver, thrombocytopenia, hyperlipidemia, cognitive communication deficit, generalized muscle weakness. The patient himself is a poor historian and his only complaint at this time is pain to the tailbone from what I believe is a sacral decubitus ulcer. Previous records show that the patient gets dialysis on Saturday//Saturday at [facility] in [place]. His primary care physician is listed as Dr. Moris King. Severe thrombocytopenia End-stage renal disease on hemodialysis Generalized anasarca Left-sided pleural effusion Acute respiratory failure secondary to pleural effusion without hypoxia Complete dependence for ADLs Bedbound Plan 01/05: Continue supportive care patient is planned for platelet transfusion today. We will also reach out to radiology to see if patient can obtain left- sided thoracentesis for diagnostic and therapeutic purposes. Review of prior x- ray does not show this pleural effusion. Anticipate that with transfusion of platelets he should be able to get this. Otherwise we will treat clinically with dialysis. Anticipate discharge in a.m. if clinically improved will need outpatient hematology evaluation considering chronic thrombocytopenia. [place] fall precautions. Will hold and type all antiplatelets and DVT chemical prophylaxis. Nursing staff to assist with all activities of daily living. Continue wound care management History Interval history: Patient seen and examined significantly edematous with cold upper extremities. Denies any pain at this time. Requires assistance with all activities of daily living. long-term resident. Shortness of breath is improved. Hospitalist Physical - Physical exam Narrative exam: General appearance: Present: no acute distress, well-nourished, other (Dry oral mucosa) otherwise generalized anasarca - EENT Eyes: Present: PERRL, EOM intact. Absent: scleral icterus ENT: hearing intact, clear oral mucosa, dentition normal - Neck Neck: Present: supple, normal ROM - Respiratory Respiratory effort: normal Respiratory: bilateral: Crackles worse on the left than the right - Cardiovascular Rhythm: regular Heart Sounds: Present: S1 & S2. Absent: gallop, systolic murmur, diastolic murmur, rub - Extremities Extremities: no ischemia, pulses intact, pulses symmetrical, Full ROM Extremity abnormal: edema (2+ bilateral lower extremity edema) with generalized anasarca Peripheral Pulses: within normal limits - Abdominal General gastrointestinal: Present: soft, non-tender, non-distended, normal bowel sounds. Absent: mass - Integumentary Integumentary: Present: warm, edematous - Musculoskeletal Musculoskeletal: generalized weakness - Psychiatric Psychiatric: appropriate mood/affect, intact judgment & insight, memory intact, cooperative - Neurologic Neurologic: CNII-XII intact, no focal deficits, moves all extremities - Additional findings Additional findings: Skin: Areas of multiple bruises all over skin. Improving sacrum - Constitutional Vitals: Temp Pulse Resp BP Pulse Ox 97.7 F 91 H 20 146/63 100 01/06/20 02:06 01/06/20 02:06 01/06/20 02:06 01/06/20 02:06 01/06/20 02:06 General appearance: Present: no acute distress, well-nourished, other (Dry oral mucosa) Results - Labs CBC & Chem 7: 01/06/20 04:00 01/06/20 04:00 Labs: Laboratory Last Values WBC 4.7 K/mm3 (4.5-11.0) 01/06/20 04:00 RBC 2.79 M/mm3 (3.65-5.03) L 01/06/20 04:00 Hgb 9.2 gm/dl (11.8-15.2) L 01/06/20 04:00 Hct 28.3 % (35.5-45.6) L 01/06/20 04:00 MCV 102 fl (84-94) H 01/06/20 04:00 MCH 33 pg (28-32) H 01/06/20 04:00 MCHC 32 % (32-34) 01/06/20 04:00 RDW 23.3 % (13.2-15.2) H 01/06/20 04:00 Plt Count 17 K/mm3 (140-440) L* 01/06/20 04:00 Lymph % (Auto) 13.7 % (13.4-35.0) 01/06/20 04:00 [place] % (Auto) 7.5 % (0.0-7.3) H 01/06/20 04:00 Eos % (Auto) 0.5 % (0.0-4.3) 01/06/20 04:00 Baso % (Auto) 1.2 % (0.0-1.8) 01/06/20 04:00 Lymph # (Auto) 0.6 K/mm3 (1.2-5.4) L 01/06/20 04:00 [place] # (Auto) 0.3 K/mm3 (0.0-0.8) 01/06/20 04:00 Eos # (Auto) 0.0 K/mm3 (0.0-0.4) 01/06/20 04:00 Baso # (Auto) 0.1 K/mm3 (0.0-0.1) 01/06/20 04:00 Seg Neutrophils % 77.1 % (40.0-70.0) H 01/06/20 04:00 Seg Neutrophils # 3.6 K/mm3 (1.8-7.7) 01/06/20 04:00 PT 14.8 Sec. (12.2-14.9) 01/06/20 04:00 INR 1.15 (0.87-1.13) H 01/06/20 04:00 Sodium 134 mmol/L (137-145) L 01/06/20 04:00 Potassium 4.4 mmol/L (3.6-5.0) D 01/06/20 04:00 Chloride 95.8 mmol/L (98-107) L 01/06/20 04:00 Carbon Dioxide 26 mmol/L (22-30) 01/06/20 04:00 Anion Gap 17 mmol/L 01/06/20 04:00 BUN 24 mg/dL (9-20) H 01/06/20 04:00 Creatinine 2.9 mg/dL (0.8-1.3) H 01/06/20 04:00 Estimated GFR 23 ml/min 01/06/20 04:00 BUN/Creatinine Ratio 8 % 01/06/20 04:00 Glucose 171 mg/dL (75-100) H 01/06/20 04:00 POC Glucose 174 mg/dL (70-105) H 01/06/20 08:48 Calcium 7.8 mg/dL (8.4-10.2) L 01/06/20 04:00 Magnesium 2.00 mg/dL (1.7-2.3) 01/05/20 21:37 Total Bilirubin 0.80 mg/dL (0.1-1.2) 01/05/20 21:37 AST 13 units/L (5-40) 01/05/20 21:37 ALT < 5 units/L (7-56) L 01/05/20 21:37 Alkaline Phosphatase 95 units/L (35-129) 01/05/20 21:37 Total Protein 5.4 g/dL (6.3-8.2) L 01/05/20 21:37 Albumin 3.0 g/dL (3.9-5) L 01/05/20 21:37 Albumin/Globulin Ratio 1.3 % 01/05/20 21:37 Blood Type O POSITIVE 01/05/20 Unknown Antibody Screen Positive 01/05/20 Unknown Kumar/IV: Voiding Method Diaper IV Catheter Type [Right Upper Peripheral IV arm] Active Medications - Current Medications Current Medications: Generic Name Dose Route Start Last Admin Trade Name Freq PRN Reason Stop Dose Admin Acetaminophen 650 mg 01/05/20 23:31 Tylenol PO Q4H PRN Pain MILD(1-3)/Fever >100.5/WONG Dextrose 50 ml 01/05/20 23:31 D50w (25gm) Syringe IV Q30MIN PRN Hypoglycemia Protocol Insulin Human Lispro 0 unit 01/06/20 07:30 Humalog SUB-Q ACHS MAGDALENE Protocol Magnesium Hydroxide 30 ml 01/05/20 23:31 Milk Of Magnesia PO Q4H PRN Constipation Ondansetron HCl 4 mg 01/05/20 23:31 Zofran IV Q8H PRN Nausea And Vomiting Sodium Chloride 10 ml 01/06/20 10:00 Sodium Chloride Flush Syringe 10 Ml IV BID MAGDALENE Sodium Chloride 10 ml 01/05/20 23:31 Sodium Chloride Flush Syringe 10 Ml IV PRN PRN LINE FLUSH
[2020-01-06] MEDS: INSULIN LISPRO 100 UNIT/ML VIAL 3 mL SUB-Q SCH ×4 (09:11→22:54)
--- NOTE | 2020-01-06 12:05 | Consultation ---
History of Present Illness - Reason for Consult Consult date: 01/06/20 end stage renal disease - History of Present Illness This is a 54 year old male who presented to the E.R for a chief complaint of shortness of breath. He is a poor historian. Patient resides at [facility] shelter. On evaluation platelets were found to be low at 19 and is 17 today. Patient has history of Thrombocytopenia, Hypertension, Cirrhosis, Diabetes Mellitus, and ESRD on hemodialysis every T,T,S at [facility]. We are being consulted for management of this patient's ESRD. Past History Past Medical History: arthritis, diabetes, dialysis, ESRD, hypertension, other (Dementia) Past Surgical History: Other (Vas Cath Placement right chest wall) Social history: no significant social history Family history: no significant family history Medications and Allergies Allergies Allergy/AdvReac Type Severity Reaction Status Date / Time morphine Allergy Unknown Verified 08/12/19 13:08 Home Medications Medication Instructions Recorded Confirmed Last Taken Type oxyCODONE /ACETAMINOPHEN [Percocet 1 tab PO Q6HR PRN #20 tablet 06/12/19 01/06/20 Unknown Rx 5/325 mg] Acetaminophen [Tylenol] 325 mg PO Q6HR PRN 01/06/20 01/06/20 Unknown History Calcium Acetate 667 mg PO TID 01/06/20 01/06/20 Unknown History Fludrocortisone [Florinef] 0.1 mg PO QDAY 01/06/20 01/06/20 Unknown History Folic Acid [Folvite] 1 mg PO QDAY 01/06/20 01/06/20 Unknown History Insulin Glargine,Hum.rec.anlog 100 unit SQ QPM 01/06/20 01/06/20 Unknown History [Zack Avina U-100] Levothyroxine Sodium [Tirosint-Thuy] 25 mcg PO QDAY 01/06/20 01/06/20 Unknown History Midodrine HCl 10 mg PO TID 01/06/20 01/06/20 Unknown History Mirtazapine Solutab [Remeron 15mg 15 mg PO QHS 01/06/20 01/06/20 Unknown History Solutab] Thiamine HCl [Vitamin B-1] 100 mg PO QDAY 01/06/20 01/06/20 Unknown History Trazodone HCl 50 mg PO QHS 01/06/20 01/06/20 Unknown History Active Meds: Active Medications Acetaminophen (Tylenol) 650 mg PO Q4H PRN PRN Reason: Pain MILD(1-3)/Fever >100.5/WONG Dextrose (D50w (25gm) Syringe) 50 ml IV Q30MIN PRN; Protocol PRN Reason: Hypoglycemia Insulin Human Lispro (Humalog) 0 unit SUB-Q ACHS [facility]; Protocol Last Admin: 01/06/20 09:11 Dose: 2 unit Documented by: Magnesium Hydroxide (Milk Of Magnesia) 30 ml PO Q4H PRN PRN Reason: Constipation Ondansetron HCl (Zofran) 4 mg IV Q8H PRN PRN Reason: Nausea And Vomiting Sodium Chloride (Sodium Chloride Flush Syringe 10 Ml) 10 ml IV BID [facility] Last Admin: 01/06/20 09:12 Dose: 10 ml Documented by: Sodium Chloride (Sodium Chloride Flush Syringe 10 Ml) 10 ml IV PRN PRN PRN Reason: LINE FLUSH Review of Systems ROS unobtainable: due to mental status Exam - Vital Signs Vital signs: Vital Signs Temp Pulse Resp BP Pulse Ox 97.5 F L 98 H 20 180/89 90 01/05/20 20:18 01/05/20 20:18 01/05/20 20:18 01/05/20 20:18 01/05/20 20:18 - General Appearance General appearance: chronically ill, fatigue EENT: ATNC, PERRL Neck: Present: neck supple Respiratory: Decreased Breath Sounds Heart: S1S2 Gastrointestinal: Present: normoactive bowel sounds Integumentary: warm and dry Neurologic: confused Musculoskeletal: Present: other (2+ edema to upper and lower extremities) Results - Lab Results 01/06/20 04:00 01/06/20 04:00 Most recent lab results Calcium 7.8 mg/dL (8.4-10.2) L 01/06/20 04:00 Magnesium 2.00 mg/dL (1.7-2.3) 01/05/20 21:37 Assessment and Plan Assessment: End-stage renal disease on hemodialysis Thrombocytopenia Anasarca Left-sided pleural effusion Plan: Hemodialysis today for UF and clearance Transfuse platelets with hemodialysis today Fluid restriction of 1 liter per day Renally dose medications Obtain daily weights Monitor I/O's Assess dialysis needs daily
[2020-01-07 08:11] LABS: Hematocrit 27.9 % (35.5-45.6); Hemoglobin 9.1 gm/dl (11.8-15.2); Mean Corpuscular HGB Conc 33 % (32-34); Mean Corpuscular Volume 101 fl (84-94); Red Blood Count 2.76 M/mm3 (3.65-5.03)
[2020-01-07 08:16] LABS: Red Cell Distribution Width 23.5 % (13.2-15.2)
[2020-01-07 08:17] LABS: Platelet Count 18 K/mm3 (140-440)
[2020-01-07 08:32] LABS: Calcium 7.9 mg/dL (8.4-10.2)
[2020-01-07] MEDS ORDERED: ALPRAZolam 0.25 MG TAB PO NR (08:43)
[2020-01-07 09:02] LABS: Calcium 7.8 mg/dL (8.4-10.2)
[2020-01-07] MEDS: INSULIN LISPRO 100 UNIT/ML VIAL 3 mL SUB-Q SCH (09:15)
--- NOTE | 2020-01-07 11:03 | XRay Report ---
XR chest 1V ap INDICATION / CLINICAL INFORMATION: pleural effusion. COMPARISON: January 05 2020. FINDINGS: SUPPORT DEVICES: Unchanged. HEART / MEDIASTINUM: Unchanged. LUNGS / PLEURA: Lung parenchyma is not significantly changed. Persistent large effusions. No pneumot horax. ADDITIONAL FINDINGS: No significant additional findings. IMPRESSION: 1. No significant interval change in the bilateral pleural effusions. Signer Name: Micah Mayer MD Signed: 01/07/2020 10:59 AM Workstation Name: [id number]
--- NOTE | 2020-01-07 13:24 | Ultrasound Report ---
ULTRASOUND-GUIDED THORACENTESIS HISTORY: THERAPEUTIC DIAGNOSITIC THROACENTESIS FOR LT EFFUSION. COMPARISON: AP chest performed yesterday PROCEDURE: The risks (including but not limited to bleeding, infection, and pneumothorax) and benefi ts were explained to the patient and informed consent was obtained. A time out procedure was perform ed. Ultrasound was used to evaluate the left pleural effusion and locate the optimal site for needle entr y. Once the skin was marked, the procedure site was prepped and draped in the usual sterile fashion and lidocaine was used for local anesthesia. A skin yessy was made and a 6-Gambian thoracentesis rufino ter was placed. The patient was monitored closely throughout the procedure, and a total of 2100 mL o f clear yellow fluid was aspirated. Samples were sent to the lab for further evaluation per the prim breann clinicians orders. The patient tolerated the procedure well with no complications. A post-procedure chest x-ray was imm ediately ordered. IMPRESSION: Successful thoracentesis as above with a total of 2100 mL of clear yellow fluid aspirated . Signer Name: Jorge Cardoso Jr, MD Signed: 01/07/2020 1:20 PM Workstation Name: [id number]
--- NOTE | 2020-01-07 13:39 | Progress Note ---
Assessment and Plan End-stage renal disease on hemodialysis Thrombocytopenia Anasarca Left-sided pleural effusion Plan: no indciation for HD today Fluid restriction of 1 liter per day Renally dose medications Obtain daily weights Monitor I/O's Assess dialysis needs daily Subjective Date of service: 01/07/20 Principal diagnosis: ESRD Interval history: tolerated HD well yesterday Objective - General Appearance General appearance: well-developed, well-nourished EENT: ATNC, PERRL Neck: no JVD, no carotid bruit Respiratory: Present: Clear to Ascultation. Absent: Rales Cardiology: regular, S1S2 Gastrointestinal: normoactive bowel sounds Integumentary: no rash, warm and dry Neurologic: no focal deficit, no asterixis Psychiatric: cooperative - Lab 01/07/20 07:00 01/07/20 07:00 Most recent lab results Calcium 7.9 mg/dL (8.4-10.2) L 01/07/20 07:00 Magnesium 2.00 mg/dL (1.7-2.3) 01/05/20 21:37 Medications & Allergies - Medications Allergies/Adverse Reactions: Allergies morphine Allergy (Verified 08/12/19 13:08) Unknown Home Medications: Home Medications Medication Instructions Recorded Confirmed Last Taken Type oxyCODONE /ACETAMINOPHEN [Percocet 1 tab PO Q6HR PRN #20 tablet 06/12/19 01/06/20 Unknown Rx 5/325 mg] Acetaminophen [Tylenol] 325 mg PO Q6HR PRN 01/06/20 01/06/20 Unknown History Calcium Acetate 667 mg PO TID 01/06/20 01/06/20 Unknown History Fludrocortisone [Florinef] 0.1 mg PO QDAY 01/06/20 01/06/20 Unknown History Folic Acid [Folvite] 1 mg PO QDAY 01/06/20 01/06/20 Unknown History Insulin Glargine,Hum.rec.anlog 100 unit SQ QPM 01/06/20 01/06/20 Unknown History [Papiaglmason Avina U-100] Levothyroxine Sodium [Tirosint-Thuy] 25 mcg PO QDAY 01/06/20 01/06/20 Unknown History Midodrine HCl 10 mg PO TID 01/06/20 01/06/20 Unknown History Mirtazapine Solutab [Remeron 15mg 15 mg PO QHS 01/06/20 01/06/20 Unknown History Solutab] Thiamine HCl [Vitamin B-1] 100 mg PO QDAY 01/06/20 01/06/20 Unknown History Trazodone HCl 50 mg PO QHS 01/06/20 01/06/20 Unknown History Active Medications: Generic Name Dose Route Start Last Admin Trade Name Freq PRN Reason Stop Dose Admin Acetaminophen 650 mg 01/05/20 23:31 Tylenol PO Q4H PRN Pain MILD(1-3)/Fever >100.5/WONG Dextrose 50 ml 01/05/20 23:31 D50w (25gm) Syringe IV Q30MIN PRN Hypoglycemia Protocol Insulin Human Lispro 0 unit 01/06/20 07:30 01/07/20 09:15 Humalog SUB-Q Not Given ACHS MAGDALENE Protocol Magnesium Hydroxide 30 ml 01/05/20 23:31 Milk Of Magnesia PO Q4H PRN Constipation Ondansetron HCl 4 mg 01/05/20 23:31 Zofran IV Q8H PRN Nausea And Vomiting Sodium Chloride 10 ml 01/06/20 10:00 01/06/20 22:54 Sodium Chloride Flush Syringe 10 Ml IV 10 ml BID MAGDALENE Administration Sodium Chloride 10 ml 01/05/20 23:31 Sodium Chloride Flush Syringe 10 Ml IV PRN PRN LINE FLUSH
[2020-01-07 14:16] VITALS: BP 139/66
--- NOTE | 2020-01-07 14:53 | Death Summary ---
Summary - Providers Date of service: 01/07/20 Consults: 01/06/20 02:52 Consult to Wound/ET Nurse [CONS] Routine Reason For Exam: wound eval on tailbone, bruises all over the body 01/06/20 02:53 Occupational Therapy Evaluate and Treat [CONS] Routine Comment: Reason For Exam: evaluation needed 01/06/20 04:34 Consult to Dietitian/Nutrition [CONS] Routine Physician Instructions: Reason For Exam: Reason for Consult: evaluation 01/06/20 04:35 Speech Therapy Evaluation and Treat [CONS] Routine Reason For Exam: swallow evaluation 01/06/20 07:19 Consult to Physician [CONS] Routine Comment: Consulting Provider: GINGER MCCARTY Physician Instructions: Reason For Exam: ESRD ON DIALYSIS 01/07/20 08:42 Consult to Physician [CONS] Routine Comment: Consulting Provider: TIFFANIE BALLESTEROS Physician Instructions: Reason For Exam: Persistent Thrombocytopenia Attending: TOMMY BAILEY MD - summary Date of admission: 01/06/20 09:35 Date of : 01/07/20 Reason for admission: Shortness of breath Significant findings: This is a 54-year-old male who presents to the emergency department via EMS from his [facility] facility with the alleged complaint of shortness of breath. Patient was here yesterday for evaluation of low platelets and need for dialysis. The EMR system was down for maintenance of there are no current records in the EMR and the paper records have not yet made their way to medical records. Apparently the patient's platelets at that time were higher than usual, there was no need for emergent dialysis, and the patient was discharged home. [facility] says the patient had low blood pressure and low oxygen. However EMS did not find the patient to have abnormal vitals. The patient has a past medical history that includes hypertension, end-stage renal disease on hemodialysis, insulin-dependent diabetes, hypothyroidism, cirrhosis of the liver, thrombocytopenia, hyperlipidemia, cognitive communication deficit, generalized muscle weakness. The patient himself is a poor historian and his only complaint at this time is pain to the tailbone from what I believe is a sacral decubitus ulcer. Previous records show that the patient gets dialysis on Saturday//Saturday at [facility] in [place]. His primary care physician is listed as Dr. Moris King. 01/05: Continue supportive care patient is planned for platelet transfusion today. We will also reach out to radiology to see if patient can obtain left- sided thoracentesis for diagnostic and therapeutic purposes. Review of prior x- ray does not show this pleural effusion. Anticipate that with transfusion of platelets he should be able to get this. Otherwise we will treat clinically with dialysis. Anticipate discharge in a.m. if clinically improved will need outpatient hematology evaluation considering chronic thrombocytopenia. Porum fall precautions. Will hold and type all antiplatelets and DVT chemical prophylaxis. Nursing staff to assist with all activities of daily living. Continue wound care management Patient multiple echymosis and some ozing blood. Considering severity of the th rombocytopenia and need for thoracentesis which is new and carries signifcant risk., He will benefit from inpatient care in this complex case of an Renal patient. 01/06: Patient initially seen this morning. Plan of care discussed with him concern due to his significant edematous and also persistent thrombocytopenia also discussed with him. He proceeded to have dialysis yesterday and this kannanni ng underwent thoracentesis report still pending shortly after the patient coded. As he was admitted as full code he was intubated while chest compression given but never returned the pulse. He was pronounced shortly after 14:04 Acute respiratory failure Severe thrombocytopenia Hypokalemia End-stage renal disease on hemodialysis Generalized anasarca Left-sided pleural effusion Acute respiratory failure secondary to pleural effusion without hypoxia Complete dependence for ADLs Bedbound Procedures/treatments rendered: Pleural effusion
[2020-01-07 15:13] LABS: Total Cells Counted 100 /mm3
== END 2020-01-07 17:10 | DRG 186 ==
LOC: ED 19:43 → 3A 23:18 → OBSVTOIN 01-06 09:35
PROVIDERS: ADMIT Internal Medicine Geriatric Medicine; ATTEND Internal Medicine
PROC: 0W9B3ZZ Drainage of Left Pleural Cavity, Percutaneous Approach (ICD-10-PCS; principal; 2020-01-06)
PROC: 5A1D70Z Performance of Urinary Filtration, Intermittent, Less than 6 Hours Per Day (ICD-10-PCS; 2020-01-06)
PROC: 30233R1 Transfusion of Nonautologous Platelets into Peripheral Vein, Percutaneous Approach (ICD-10-PCS; 2020-01-06)
DX: J90 Pleural effusion, not elsewhere classified (principal); J96.01 Acute respiratory failure with hypoxia; N18.6 End stage renal disease; I12.0 Hypertensive chronic kidney disease with stage 5 chronic kidney disease or end stage renal disease; D69.6 Thrombocytopenia, unspecified; Z99.2 Dependence on renal dialysis; E03.9 Hypothyroidism, unspecified; K74.60 Unspecified cirrhosis of liver; M19.90 Unspecified osteoarthritis, unspecified site; Z79.899 Other long term (current) drug therapy; Z79.4 Long term (current) use of insulin; F03.90 Unspecified dementia, unspecified severity, without behavioral disturbance, psychotic disturbance, mood disturbance, and anxiety; Z74.01 Bed confinement status; Z88.5 Allergy status to narcotic agent; E87.6 Hypokalemia
CPT/HCPCS: 32555; 36415; 36430; 71045; 80048; 80053; 82947; 82962; 83735; 84160; 85025; 85027; 85610; 86850; 86870; 86900; 86901; 86922; 87116; 88112; 88305; 89051; 93005; 96365; 96366; 96375; G0378; J1170; P9035